=== PATIENT | female | born 1955 | race Caucasian/White ===

== ENCOUNTER → 2016-12-13 | Outpatient (CLI) | payer BC ==
[~2016-12-13] MED LIST: APIX1TAB3 PO; ASPI81TA28 PO; METH10TA6 PO; METO1TAB31 PO; MULT-506 PO; TRAM-10 PO
[2016-12-13 17:05] LABS: ALT/SGPT 28 U/L (12-78); BLOOD UREA NITROGEN 12 mg/dl (7-18); BUN/CREATININE RATIO 16.2 (10-20); CALCIUM 9.1 mg/dl (8.5-10.1); CARBON DIOXIDE 26 mmol/L (21-32); CHLORIDE 104 mmol/L (98-107); CREATININE 0.71 mg/dl (0.60-1.20); GLUCOSE 215 mg/dl (70-99); POTASSIUM 4.2 mmol/L (3.5-5.1); SODIUM 138 mmol/L (136-145)
[2016-12-13 17:12] LABS: BASO % 0.3 %; BASO ABS # 0.03 K/uL (0-0.2); COMPLETE YES; EOS % 0.8 %; HEMATOCRIT 45.9 % (37-47); IG% 0.3 %; LYMPH ABS # 1.98 K/uL (1.2-3.4); MEAN CELL VOLUME 90.2 fL (80-100); MEAN CORPUSCULAR HEMOGLOBIN 30.3 pg (25-34); MEAN CORPUSCULAR HGB CONC 33.6 g/dl (32-36); MEAN PLATELET VOLUME 11.8 fL (7.4-10.4); MONO % 4.1 %; NEUT % 74.5 %; PLATELET COUNT 239 K/uL (130-400); RED BLOOD COUNT 5.09 M/uL (4.2-5.4); WHITE BLOOD COUNT 9.88 K/uL (4.8-10.8)
[2016-12-13 17:16] LABS: ALKALINE PHOSPHATASE 98 U/L (45-117); AST/SGOT 20 U/L (15-37)
[2016-12-14 06:25] LABS: ESTIMATED AVERAGE GLUCOSE 203 mg/dl; HA1C FLAG Normal (Normal)
== END | disposition home or self-care (01) ==
LOC: C.LABBFT 12:17
PROVIDERS: ATTEND Internal Medicine
DX: I48.0 Paroxysmal atrial fibrillation (principal); E05.90 Thyrotoxicosis, unspecified without thyrotoxic crisis or storm; I10 Essential (primary) hypertension; E11.9 Type 2 diabetes mellitus without complications; K62.5 Hemorrhage of anus and rectum

== ENCOUNTER → 2017-01-20 | Outpatient (CLI) | payer BC ==
[~2017-01-20] MED LIST changes: +METO-478 PO; -METO1TAB31 PO
[2017-01-20 16:46] LABS: BASO % 0.3 %; BASO ABS # 0.03 K/uL (0-0.2); COMPLETE YES; EOS % 1.3 %; HEMATOCRIT 47.1 % (37-47); IG% 0.1 %; LYMPH % 19.4 %; LYMPH ABS # 2.05 K/uL (1.2-3.4); MEAN CELL VOLUME 91.6 fL (80-100); MEAN CORPUSCULAR HEMOGLOBIN 30.4 pg (25-34); MEAN CORPUSCULAR HGB CONC 33.1 g/dl (32-36); MEAN PLATELET VOLUME 11.3 fL (7.4-10.4); MONO % 6.2 %; NEUT % 72.7 %; PLATELET COUNT 258 K/uL (130-400); RED BLOOD COUNT 5.14 M/uL (4.2-5.4); WHITE BLOOD COUNT 10.59 K/uL (4.8-10.8)
[2017-01-20 17:37] LABS: ALKALINE PHOSPHATASE 89 U/L (45-117); ALT/SGPT 35 U/L (12-78); AST/SGOT 27 U/L (15-37); BLOOD UREA NITROGEN 13 mg/dl (7-18); BUN/CREATININE RATIO 19.1 (10-20); CALCIUM 8.7 mg/dl (8.5-10.1); CARBON DIOXIDE 30 mmol/L (21-32); CHLORIDE 103 mmol/L (98-107); CHOLESTEROL 181 mg/dl (0-200); CHOLESTEROL/HDL RATIO 5.5; CREATININE 0.69 mg/dl (0.60-1.20); GLUCOSE 155 mg/dl (70-99); HDL CHOLESTEROL 33 mg/dl; LDL CHOLESTEROL CALCULATED 114 mg/dl; POTASSIUM 4.1 mmol/L (3.5-5.1); SODIUM 140 mmol/L (136-145); TRIGLYCERIDES 172 mg/dl (0-150); VERY LOW DENSITY LIPOPROT CALC 34 mg/dl
== END | disposition home or self-care (01) ==
LOC: C.LAB 14:53
PROVIDERS: ATTEND Family Medicine
DX: Z12.11 Encounter for screening for malignant neoplasm of colon (principal); Z13.6 Encounter for screening for cardiovascular disorders; E05.90 Thyrotoxicosis, unspecified without thyrotoxic crisis or storm; I10 Essential (primary) hypertension

== ENCOUNTER → 2017-02-12 | Outpatient (CLI) | payer BC | END | disposition home or self-care (01) | LOC: C.LAB 10:52 | PROVIDERS: ATTEND Family Medicine | DX: Z12.11 Encounter for screening for malignant neoplasm of colon (principal); E05.90 Thyrotoxicosis, unspecified without thyrotoxic crisis or storm; I10 Essential (primary) hypertension; Z13.6 Encounter for screening for cardiovascular disorders ==

== ENCOUNTER → 2017-09-26 | Outpatient (CLI) | payer BC ==
--- NOTE | 2017-09-26 13:34 | DIAGNOSTIC IMAGING REPORT ---
C-SPINE ROUTINE 4 OR 5 VIEWS HISTORY: Pain NECK PAIN COMPARISON: None. FINDINGS: The cervical spine is visualized from C1 through the superior endplate of T1. There is no fracture. No subluxation. Moderate degenerative disc change from C5 through C7. Prevertebral soft tissues and the atlantodens interval are intact. IMPRESSION: Moderate degenerative changes low cervical spine. No acute process. The above report was generated using voice recognition software. It may contain grammatical, syntax or spelling errors. Electronically signed by: Addy Aldridge M.D. 09/26/2017 1:32 PM Dictated Date/Time: 09/26/2017 1:31 PM
[2017-09-26 14:32] LABS: BASO % 0.2 %; BASO ABS # 0.02 K/uL (0-0.2); COMPLETE YES; EOS % 1.2 %; HEMATOCRIT 46.9 % (37-47); IG% 0.2 %; LYMPH % 27.2 %; LYMPH ABS # 2.24 K/uL (1.2-3.4); MEAN CELL VOLUME 93.2 fL (80-100); MEAN CORPUSCULAR HGB CONC 32.2 g/dl (32-36); MONO % 6.6 %; NEUT % 64.6 %; PLATELET COUNT 238 K/uL (130-400); RED BLOOD COUNT 5.03 M/uL (4.2-5.4); WHITE BLOOD COUNT 8.24 K/uL (4.8-10.8)
[2017-09-26 14:44] LABS: ALT/SGPT 30 U/L (12-78); AST/SGOT 20 U/L (15-37); BLOOD UREA NITROGEN 17 mg/dl (7-18); CARBON DIOXIDE 28 mmol/L (21-32); CHLORIDE 102 mmol/L (98-107); CREATININE 0.72 mg/dl (0.60-1.20); GLUCOSE 292 mg/dl (70-99); SODIUM 135 mmol/L (136-145)
[2017-09-26 14:46] LABS: ALB/GLOB RATIO 0.9 (0.9-2); ALKALINE PHOSPHATASE 128 U/L (45-117)
[2017-09-26 14:47] LABS: URINE APPEARANCE CLEAR (CLEAR); URINE BILIRUBIN NEG (NEG); URINE COLOR YELLOW; URINE EPITHELIAL CELL AUTO >30 /lpf (0-5); URINE NITRITE NEG (NEG); URINE PH 5.5 (4.5-7.5); URINE SPECIFIC GRAVITY 1.042 (1.000-1.030); UROBILINOGEN NEG (NEG)
[2017-09-26 14:50] LABS: MANUAL MICROSCOPIC REQUIRED? NO; REVIEW REQ? NO; THYROID STIMULATING HORMONE 2.64 uIu/ml (0.300-4.500)
[2017-09-26 15:38] LABS: RATIO 692.6 mcg/mg (0-30.0)
== END | disposition home or self-care (01) ==
LOC: C.LAB 12:33
PROVIDERS: ATTEND Family Medicine
DX: M54.2 Cervicalgia (principal); E05.90 Thyrotoxicosis, unspecified without thyrotoxic crisis or storm; I10 Essential (primary) hypertension; M50.322 Other cervical disc degeneration at C5-C6 level; M50.323 Other cervical disc degeneration at C6-C7 level; M50.33 Other cervical disc degeneration, cervicothoracic region

== ENCOUNTER 2022-07-19 16:14 | Inpatient (IN) ==
--- NOTE | 2022-07-19 18:23 | Emergency Department Note ---
History of Present Illness General Chief complaint: Neck Injury/Pain Stated complaint: NECK PAIN, Time Seen by Provider: 07/19/22 17:38 History of Present Illness Maximum Pain Intensity: 10 This 67 yo female presents to the emergency department complaining of "neck pain" x 2-3 days. She denies any known injury or trauma. She says the pain is mostly on the front or sides of her neck, is intermittent, and rates it as a throbbing 5/10. She has been taking meloxicam 15mg daily, which alleviates the pain for 2 hrs at a time. Pain is better at night, worse in the morning, but pt denies morning stiffness. Pain is worse with movement or activity. She says she has no prior history of neck injury. She was prescribed the meloxicam for "degenerative arthritis" of the cervical spine. However, the patient is also on Eliquis for Afib. She is also taking tramadol for the pain. Patient denies alcohol or drug use. She also c/o SOB on exertion (not at rest), but denies any chest pain. Also has mild intermittent nausea and dizziness since the neck pain started. Feels like she has a mild sore throat as well. Denies any cough or other URI symptoms. She denies any recent fever, falls, or physical trauma. The patient is a poor historian about her health history and her medication use. Home Medications Medication Instructions Recorded Confirmed Type ASPIRIN (ASPIRIN EC) 81 mg PO DAILY ##0 06/30/16 History Methimazole 10 mg PO DAILY ##0 06/30/16 History Multivitamin 1 tab PO DAILY #0 tabs 06/30/16 History Tramadol (Ultram) 100 mg PO Q4H PRN Pain #0 tabs 06/30/16 History APIXABAN (ELIQUIS) 5 mg PO BID 30 days #60 tabs 07/01/16 Rx METOPROLOL SUCCINATE (TOPROL XL) 1 tab PO DAILY 30 days #30 tabs 07/01/16 Rx Allergies Allergy/AdvReac Type Severity Reaction Status Date / Time Cipro Allergy Mild SHORTNESS Verified 06/30/16 21:23 OF BREATH ciprofloxacin [Cipro] Allergy Mild SHORTNESS Verified 11/10/21 14:55 OF BREATH miconazole Allergy Mild Rash Verified 06/30/16 21:23 empagliflozin Allergy Unknown Unknown Verified 11/10/21 14:55 [From Jardiance] metformin Allergy Unknown Unknown Verified 11/10/21 14:56 Past Med/Surg History Medical History (Updated 07/19/22 @ 22:20 by Ty Oseguera MD) Atrial fibrillation Degenerative arthritis of cervical spine Hypertension Surgical History (Updated 07/19/22 @ 21:30 by Tracy Vides PA-C) No pertinent past surgical history Social History (Updated 07/19/22 @ 21:31 by Tracy Vides PA-C) Smoking Status: Former smoker Hx Alcohol Use: No Hx Substance Use: No Preferred Language: [place] Communication Ability: Effective Associate Teacher Required: No Beliefs That Will Affect Care: None Current Living Situation: Significant Other Feels Safe at Home: Yes Assistive Devices: Glasses Review of Systems See HPI for pertinent positives & negatives. and A total of 10 systems reviewed and were otherwise negative Physical Exam Vital Signs Vital Signs - 24 hr 07/19/22 17:13 07/19/22 18:37 07/19/22 18:40 Temperature 36.6 C Temperature Source Oral Pulse Rate 70 182 H 170 H Pulse Rate from SpO2 Sensor Respiratory Rate 18 23 26 H Respiratory Effort / Characteristics Blood Pressure 176/123 H Blood Pressure Mean 140 Pulse Oximetry 96 Oxygen Delivery Method Room Air Oxygen Flow Rate Sepsis Recent Fever Within 48 Hours No Sepsis New/Unexplained Change in Mental Status No Sepsis Action Taken by Nursing No Action Required 07/19/22 18:48 07/19/22 18:48 07/19/22 18:58 Temperature Temperature Source Pulse Rate 193 H 187 H Pulse Rate from SpO2 Sensor 150 H Respiratory Rate 29 H Respiratory Effort / Characteristics Blood Pressure Blood Pressure Mean 121 Pulse Oximetry 90 Oxygen Delivery Method Oxygen Flow Rate Sepsis Recent Fever Within 48 Hours Sepsis New/Unexplained Change in Mental Status Sepsis Action Taken by Nursing 07/19/22 18:50 07/19/22 18:58 07/19/22 18:58 Temperature Temperature Source Pulse Rate 169 H 172 H Pulse Rate from SpO2 Sensor 130 H 162 H Respiratory Rate 17 18 Respiratory Effort / Characteristics Blood Pressure 155/92 H Blood Pressure Mean 113 Pulse Oximetry 90 92 Oxygen Delivery Method Oxygen Flow Rate Sepsis Recent Fever Within 48 Hours Sepsis New/Unexplained Change in Mental Status Sepsis Action Taken by Nursing 07/19/22 19:00 07/19/22 19:00 07/19/22 19:00 Temperature Temperature Source Pulse Rate 165 H Pulse Rate from SpO2 Sensor 161 H Respiratory Rate 19 24 Respiratory Effort / Characteristics Short of Breath Blood Pressure 143/107 H Blood Pressure Mean 119 Pulse Oximetry 93 94 Oxygen Delivery Method Nasal Cannula Oxygen Flow Rate 2 Sepsis Recent Fever Within 48 Hours Sepsis New/Unexplained Change in Mental Status Sepsis Action Taken by Nursing 07/19/22 19:10 07/19/22 19:20 07/19/22 19:30 Temperature Temperature Source Pulse Rate 172 H 173 H 175 H Pulse Rate from SpO2 Sensor 132 H Respiratory Rate 18 22 22 Respiratory Effort / Characteristics Blood Pressure Blood Pressure Mean Pulse Oximetry 90 Oxygen Delivery Method Oxygen Flow Rate Sepsis Recent Fever Within 48 Hours Sepsis New/Unexplained Change in Mental Status Sepsis Action Taken by Nursing 07/19/22 19:40 07/19/22 19:54 07/19/22 20:00 Temperature Temperature Source Pulse Rate 180 H 150 H 155 H Pulse Rate from SpO2 Sensor 95 H 139 H Respiratory Rate 19 16 Respiratory Effort / Characteristics Blood Pressure Blood Pressure Mean Pulse Oximetry 98 97 Oxygen Delivery Method Oxygen Flow Rate Sepsis Recent Fever Within 48 Hours Sepsis New/Unexplained Change in Mental Status Sepsis Action Taken by Nursing 07/19/22 20:10 07/19/22 20:20 07/19/22 20:29 Temperature Temperature Source Pulse Rate 155 H 165 H 107 H Pulse Rate from SpO2 Sensor 146 H 177 H 113 H Respiratory Rate 27 H 27 H 21 Respiratory Effort / Characteristics Blood Pressure Blood Pressure Mean Pulse Oximetry 99 88 L 98 Oxygen Delivery Method Oxygen Flow Rate Sepsis Recent Fever Within 48 Hours Sepsis New/Unexplained Change in Mental Status Sepsis Action Taken by Nursing 07/19/22 20:29 07/19/22 20:30 07/19/22 21:00 Temperature Temperature Source Pulse Rate 102 H 143 H Pulse Rate from SpO2 Sensor 116 H Respiratory Rate 20 24 Respiratory Effort / Characteristics Blood Pressure 124/87 Blood Pressure Mean 99 Pulse Oximetry 98 Oxygen Delivery Method Oxygen Flow Rate Sepsis Recent Fever Within 48 Hours Sepsis New/Unexplained Change in Mental Status Sepsis Action Taken by Nursing 07/19/22 21:10 Temperature Temperature Source Pulse Rate 130 H Pulse Rate from SpO2 Sensor 135 H Respiratory Rate 23 Respiratory Effort / Characteristics Blood Pressure Blood Pressure Mean Pulse Oximetry 98 Oxygen Delivery Method Oxygen Flow Rate Sepsis Recent Fever Within 48 Hours Sepsis New/Unexplained Change in Mental Status Sepsis Action Taken by Nursing VITALS: Vitals are noted on the nurse's note and reviewed by myself. Triage vitals showed a heart rate of 70, but on my exam her heart rate was 188 by pulse ox and her heart rate continue to remain between 170 and 190 until the Cardizem drip. The patient's pulse ox decreased during her stay and she was placed on 2 L O2 by nasal cannula. GENERAL: 67-year-old female, in no acute distress, non-diaphoretic, well- developed well-nourished. SKIN: Capillary refill <2 sec. No tenting of the skin. HEAD: Normocephalic, atraumatic. EARS: External auditory canals clear, tympanic membranes pearly caceres without erythema or effusion bilaterally. EYES: PERRLA. EOMI. Conjunctivae without injection, sclerae without icterus. NOSE: Patent without discharge. MOUTH: Mucous membranes moist. Uvula midline. Airway patent. NECK: Supple without nuchal rigidity. No tenderness to palpation over the cervical spine or paraspinal muscles. The patient points to pain along the carotid region as well as the anterior aspect of the neck. HEART: Tachycardic with irregularly irregular rhythm. LUNGS: Clear to auscultation bilaterally without wheezes, rales or rhonchi. No retractions or accessory muscle use. ABDOMEN: Positive bowel sounds x 4. Normal tympanic percussion. Soft, nontender, without masses or organomegaly. Ryan sign negative. No guarding or rebound tenderness. No focal RLQ or LLQ tenderness. MUSCULOSKELETAL: The patient's left calf is edematous compared to the right and mildly tender to palpation with the left calf measuring 37 cm and the right calf measuring 32 cm. NEURO: Patient was alert and oriented to person place and time. No focal neurological deficits. Course Administered Medications Diltiazem HCl 125 mg/ Dextrose 125 mls @ 5 mls/hr IV .Q24H ELIAN; Protocol Stop: 08/18/22 19:44 Last Titration: 07/19/22 22:33 Dose: 10 mg/hr, 10 mls/hr Documented By: KANE Co-signed By: JOHN Admin: 07/19/22 20:21 Dose: 5 mg/hr, 5 mls/hr Documented By: KANE Co-signed By: OAM Doxycycline Hyclate 100 mg/ (Dextrose) 110 mls @ 50 mls/hr IV Q12H ELIAN Stop: 10/14/22 22:14 Last Admin: 07/19/22 23:01 Dose: 50 mls/hr Documented By: KANE Sodium Chloride (Nss 1000ml) 1,000 mls @ 80 mls/hr IV .[id number] ELIAN Stop: 08/18/22 22:14 Last Admin: 07/19/22 23:35 Dose: 80 mls/hr Documented By: JACOBY Tramadol HCl (Tramadol Hcl 50 Mg Tablet) 100 mg PO Q4H PRN PRN Reason: Pain Last Admin: 07/20/22 00:08 Dose: 100 mg Documented By: JACOBY Discontinued Medications Diltiazem HCl (Diltiazem Hcl 5 Mg/Ml 5 Ml Vial) 20 mg IV NOW STA Stop: 07/19/22 19:33 Last Admin: 07/19/22 20:22 Dose: 20 mg Documented By: KANE Co-signed By: MILA Sodium Chloride (Nss) 500 mls @ 999 mls/hr IV .Q31M STA Stop: 07/19/22 18:54 Last Infusion: 07/19/22 19:53 Dose: 0 mls/hr Documented By: Admin: 07/19/22 18:58 Dose: 999 mls/hr Documented By: KHALIDA Ioversol (Optiray 300 500ml) 107 ml IV ONCE ONE Stop: 07/19/22 20:53 Last Admin: 07/19/22 20:52 Dose: 107 ml Documented By: ELIA Metoprolol Tartrate (Metoprolol Tartrate 1 Mg/Ml Vial) 5 mg IV NOW STA Stop: 07/19/22 18:46 Last Admin: 07/19/22 18:58 Dose: 5 mg Documented By: KHALIDA Miscellaneous (Stat Iv Infusion Titration Per Protocol) 1 each N/A NOW STA Stop: 07/19/22 19:33 Last Admin: 07/19/22 20:22 Dose: 1 each Documented By: KANE Medical Decision Making Differential Diagnosis Differential diagnosis includes fracture, subluxation, cervical strain, lymphadenopathy, meningitis, pharyngitis, thyromegaly, thyroid nodules, HI, A. fib, other cardiac etiology, PE, DVT, pneumonia, or others. Laboratory Data Attestation: I reviewed the patient's lab results. Result diagrams: 07/19/22 18:40 07/19/22 18:40 Lab Results 1007/19/22 07/19/22 Range/Units 18:40 18:40 18:40 WBC 15.95 H (4.8-10.8) K/ul RBC 5.35 H (3.93-5.22) M/uL Hgb 16.4 H (12.0-16.0) g/dl Hct 50.3 H (34.1-44.9) % MCV 94.0 (80.0-100.0) fL MCH 30.7 (25.0-34.0) pg MCHC 32.6 (32.0-36.0) g/dL RDW Std Deviation 46.9 H (36.4-46.3) fL RDW Coeff of Rasheed 13.7 (11.5-14.5) % Plt Count 267 (130-400) K/uL MPV 10.8 (9.4-12.3) fL Immature Gran % (Auto) 0.4 % Neut % (Auto) 84.6 % Lymph % (Auto) 9.3 % [place] % (Auto) 5.1 % Eos % (Auto) 0.2 % Baso % (Auto) 0.4 % Neut # (Auto) 13.48 H (1.4-6.5) K/uL Lymph # (Auto) 1.49 (1.2-3.4) K/uL [place] # (Auto) 0.82 (0.24-0.82) K/uL Eos # (Auto) 0.03 (0-0.50) K/uL Baso # (Auto) 0.06 (0-0.2) K/uL Immature Gran # (Auto) 0.07 H (0.00-0.02) K/uL PT 11.4 (9.0-12.0) Seconds INR 1.1 (0.9-1.1) APTT 31.1 H (21.0-31.0) Seconds PTT Ratio 1.1 Sodium 138 (136-145) mmol/L Potassium 4.8 (3.5-5.1) mmol/L Chloride 102 (98-107) mmol/L Carbon Dioxide 29 (21-32) mmol/L Anion Gap 7 (3-11) BUN 17 (6-23) mg/dl Creatinine 0.78 (0.6-1.2) mg/dl Est Cr Clr Drug Dosing 73.4 ml/min Est GFR ( Amer) 92.5 ml/min Est GFR (Non-Af Amer) 79.8 ml/min BUN/Creatinine Ratio 21.8 H (10-20) Glucose 246 H (70-99(Fasting)) mg/dl Calcium 9.6 (8.5-10.1) mg/dl Total Bilirubin 0.3 (0.2-1.0) mg/dl AST 23 (13-39) U/L ALT 17 (7-52) U/L Alkaline Phosphatase 89 (34-104) U/L Troponin I High Sens 744.6 H* (0-14) pg/ml Total Protein 7.2 (6.0-8.3) gm/dl Albumin 4.5 (3.4-5.0) gm/dl Globulin 2.7 (2.5-4.0) gm/dl Albumin/Globulin Ratio 1.7 (0.9-2) Lipase 16 (11-82) U/L TSH (0.300-4.500) uIu/ml SARS-CoV-2, RNA, NAAT (NEGATIVE) 07/19/22 07/19/22 Range/Units 18:40 18:45 WBC (4.8-10.8) K/ul RBC (3.93-5.22) M/uL Hgb (12.0-16.0) g/dl Hct (34.1-44.9) % MCV (80.0-100.0) fL MCH (25.0-34.0) pg MCHC (32.0-36.0) g/dL RDW Std Deviation (36.4-46.3) fL RDW Coeff of Rasheed (11.5-14.5) % Plt Count (130-400) K/uL MPV (9.4-12.3) fL Immature Gran % (Auto) % Neut % (Auto) % Lymph % (Auto) % [place] % (Auto) % Eos % (Auto) % Baso % (Auto) % Neut # (Auto) (1.4-6.5) K/uL Lymph # (Auto) (1.2-3.4) K/uL [place] # (Auto) (0.24-0.82) K/uL Eos # (Auto) (0-0.50) K/uL Baso # (Auto) (0-0.2) K/uL Immature Gran # (Auto) (0.00-0.02) K/uL PT (9.0-12.0) Seconds INR (0.9-1.1) APTT (21.0-31.0) Seconds PTT Ratio Sodium (136-145) mmol/L Potassium (3.5-5.1) mmol/L Chloride (98-107) mmol/L Carbon Dioxide (21-32) mmol/L Anion Gap (3-11) BUN (6-23) mg/dl Creatinine (0.6-1.2) mg/dl Est Cr Clr Drug Dosing ml/min Est GFR ( Amer) ml/min Est GFR (Non-Af Amer) ml/min BUN/Creatinine Ratio (10-20) Glucose (70-99(Fasting)) mg/dl Calcium (8.5-10.1) mg/dl Total Bilirubin (0.2-1.0) mg/dl AST (13-39) U/L ALT (7-52) U/L Alkaline Phosphatase (34-104) U/L Troponin I High Sens (0-14) pg/ml Total Protein (6.0-8.3) gm/dl Albumin (3.4-5.0) gm/dl Globulin (2.5-4.0) gm/dl Albumin/Globulin Ratio (0.9-2) Lipase (11-82) U/L TSH 3.154 (0.300-4.500) uIu/ml SARS-CoV-2, RNA, NAAT NEGATIVE (NEGATIVE) Imaging Data Radiologist's Impression: Chest X-Ray 07/19/22 18:25 XR chest 1V portable HISTORY: 67 years-old Female Chest Pain . Chest pain COMPARISON: Chest radiograph 06/30/2016 TECHNIQUE: Portable AP view of the chest FINDINGS: Cardiac silhouette is enlarged. Apparent coarsening of the interstitium, likely secondary to patient body habitus. No pneumothorax, pleural effusion or lobar airspace consolidation. Mild subsegmental bibasilar atelectasis. The bones appear grossly intact. IMPRESSION: Cardiomegaly without acute process. ACT 112: Negative or not required by law. The above report was generated using voice recognition software. It may contain grammatical, syntax or spelling errors. Electronically signed by: Macario Colindres M.D. 07/19/2022 7:05 PM Chest CTA 07/19/22 20:13 CT angio chest PE protocol CT DOSE: 585.48 mGy.cm HISTORY: 67 years-old Female with eval for PE. Acute shortness of breath TECHNIQUE: Multiple CTA images of the chest were obtained after the intravenous administration of 107 ml Optiray. Coronal and sagittal MIPS were obtained from the axial data set and were submitted for review. All measurements were obtained according to NASCET criteria. A dose lowering technique was utilized adhering to the principles of ALARA. COMPARISON: Chest radiograph of same day FINDINGS: CTA: The heart is upper limits of normal in size. There is no pericardial effusion. Moderate coronary artery calcifications. Mild mural fatty changes of the left ventricular apex. Atherosclerosis of the thoracic aorta with patency of the imaged great vessels. Unremarkable pulmonary artery. The segmental and subsegmental branches however within the lung bases are suboptimally evaluated secondary to respiratory motion artifact. CT CHEST: Heterogeneity of the thyroid. 2.0 x 1.4 cm right hilar lymph node. Lipoma of the right diaphragmatic mackenzie, 5.4 x 3.6 cm. Indeterminate hypodense 2.9 x 2.6 x 5.0 cm circumscribed structure is noted with within the posterior mediastinum adjacent to the descending thoracic aorta the level of the midthoracic spine. Trace right pleural effusion. Intralobular and bronchial wall thickening. Emphysema. Minimal subpleural patchy consolidative opacities within the right upper lobe. No acute process of the imaged upper abdomen. Unremarkable soft tissues. No acute fracture. Degenerative changes of the shoulders and spine. IMPRESSION: 1. No pulmonary emboli. 2. Cardiomegaly with mild pulmonary edema and trace right pleural effusion. 3. Emphysema with bronchial wall thickening suggestive of bronchitis. Mild subsegmental subpleural opacities of the right upper lobe may represent a subtle infectious or inflammatory pneumonitis. 4. Likely reactive right hilar lymphadenopathy. 5. 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 ACT 112: Negative or not required by law. The above report was generated using voice recognition software. It may contain grammatical, syntax or spelling errors. Electronically signed by: Macario Colindres M.D. 07/19/2022 9:48 PM MDM Narrative I examined the patient. She is a somewhat poor historian about her past medical history as well as her current medication use and history. She initially was complaining of neck pain, but on physical exam she was tachycardiac with an irregularly irregular rhythm. When I placed the pulse ox on the patient, her heart rate was 188. Continuous bonding supervisor: Order was placed for continuous bonding supervisor and continuous pulse ox. Patient was placed on the bonding supervisor. Patient was noted to be in rapid Afib at an initial rate of 177 bpm. EKG was interpreted by myself and Dr. Donahue and shows atrial fibrillation with rapid ventricular response at 179 bpm with no obvious acute ST or T wave changes. An IV lock was placed and labs were drawn. I had a meaningful discussion about this patient with Dr. Donahue. They agree with my assessment and the treatment plan. She was initially given metoprolol 5 mg IV with no improvement of her heart rate. She was then given Cardizem 20 mg IV bolus followed by Cardizem drip with improvement of her heart rate ranging between 100 and 130. The patient's pulse ox did decrease while she is in the emergency department and she was put on 2 L of oxygen by nasal cannula with improvement of her pulse ox to 98%. She states that she has not seen cardiology in a number of years. White blood cell count was elevated at 15.95, hemoglobin elevated at 16.4, INR 1.1, APTT 31.1. Glucose elevated at 246, but CMP otherwise normal. Lipase normal. TSH normal at 3.154. COVID-negative. Troponin was significantly elevated at 744.6, which may be due to her being in rapid A. fib for so long. Chest x-ray was reviewed and interpreted by myself with cardiomegaly, but no evidence for pneumonia or other acute changes. I agree with the radiology interpretation as above. Since the patient is a poor historian and unable to tell me if she has been fully compliant with taking her Eliquis for her A. fib and since she has swelling of the LLE, a CT scan of the chest with contrast and ultrasound of the left lower extremity was obtained to evaluate for PE or DVT. CT scan of the chest was reviewed by myself and read by radiology as above and shows no evidence for PE, but does show cardiomegaly with mild pulmonary edema, emphysema with bronchial wall thickening suggestive of bronchitis, and likely reactive right hilar lymphadenopathy. There was also a 5 cm hypodense lesion within the posterior mediastinum which may represent a duplication cyst. Ultrasound of the left lower extremity was still pending at the time of this dictation. I spoke with the hospitalist Dr. Oseguera about the patient and he was in agreement with admission for further evaluation and treatment. The patient was in stable condition at the time of transfer of care. Impression & Plan Rapid atrial fibrillation, Elevated troponin, SOB (shortness of breath) Discharge Plan Visit Data Chief Complaint: Neck Injury/Pain Stated Complaint: NECK PAIN, ED Provider: Jackelyn Donahue ED Midlevel Provider: Tracy Vides Discharge Problem: Rapid atrial fibrillation, Elevated troponin, SOB (shortness of breath) Patient Disposition: Admitted As Inpatient Condition: Good Discharge Instructions Interventions: ED Discharge Assessment Last Done: 07/20/22 00:12
[2022-07-19] MEDS ORDERED: SODIUM CHLORIDE 0.9% 500 ML IV STA (18:24)
[2022-07-19] MEDS ORDERED: METOPROLOL TARTRATE 1 MG/ML VIAL IV STA (18:45)
[2022-07-19 18:52] LABS: Basophils # (auto) 0.06 K/uL (0-0.2); Basophils % (auto) 0.4 %; Eosinophils # (auto) 0.03 K/uL (0-0.50); Eosinophils % (auto) 0.2 %; Hematocrit (blood only) 50.3 % (34.1-44.9); Hemoglobin 16.4 g/dl (12.0-16.0); Immature Granulocytes # (auto) 0.07 K/uL (0.00-0.02); Immature Granulocytes % (auto) 0.4 %; Lymphocytes # (auto) 1.49 K/uL (1.2-3.4); Lymphocytes % (auto) 9.3 %; Mean Corpuscular Hemoglobin 30.7 pg (25.0-34.0); Mean Corpuscular Hgb Conc 32.6 g/dL (32.0-36.0); Mean Platelet Volume 10.8 fL (9.4-12.3); Monocytes # (auto) 0.82 K/uL (0.24-0.82); Monocytes % (auto) 5.1 %; Neutrophils # (auto) 13.48 K/uL (1.4-6.5); Neutrophils % (auto) 84.6 %; Platelet Count 267 K/uL (130-400); RDW Coefficient of Variation 13.7 % (11.5-14.5); RDW Standard Deviation 46.9 fL (36.4-46.3); Red Blood Count 5.35 M/uL (3.93-5.22); White Blood Count 15.95 K/ul (4.8-10.8)
[2022-07-19 19:07] LABS: INR 1.1 (0.9-1.1); Partial Thromboplastin Ratio 1.1; Partial Thromboplastin Time 31.1 Seconds (21.0-31.0); Prothrombin Time 11.4 Seconds (9.0-12.0)
--- NOTE | 2022-07-19 19:07 | XRay Report ---
XR chest 1V portable HISTORY: 67 years-old Female Chest Pain . Chest pain COMPARISON: Chest radiograph 06/30/2016 TECHNIQUE: Portable AP view of the chest FINDINGS: Cardiac silhouette is enlarged. Apparent coarsening of the interstitium, likely secondary to patient body habitus. No pneumothorax, pleural effusion or lobar airspace consolidation. Mild subsegmental bi basilar atelectasis. The bones appear grossly intact. IMPRESSION: Cardiomegaly without acute process. ACT 112: Negative or not required by law. The above report was generated using voice recognition software. It may contain grammatical, syntax o r spelling errors. Electronically signed by: Macario Colindres M.D. 07/19/2022 7:05 PM
[2022-07-19 19:12] LABS: Albumin Globulin Ratio 1.7 (0.9-2); Albumin Level 4.5 gm/dl (3.4-5.0); BUN Creatinine Ratio 21.8 (10-20); Bilirubin,Total 0.3 mg/dl (0.2-1.0); Calcium 9.6 mg/dl (8.5-10.1); Creatinine Clr Calc Pharmacy 73.4 ml/min; Est GFR (African American) 92.5 ml/min; Est GFR (Non-African American) 79.8 ml/min; Globulin 2.7 gm/dl (2.5-4.0); Potassium 4.8 mmol/L (3.5-5.1); Total Protein 7.2 gm/dl (6.0-8.3)
[2022-07-19 19:20] LABS: Troponin I High Sensitivity 744.6 pg/ml (0-14)
[2022-07-19] MEDS ORDERED: STAT IV Infusion **Titration per Protocol STA (19:32)
[2022-07-19] MEDS ORDERED: dilTIAZem HCl 5 MG/ML 5 ML VIAL IV STA (19:32)
[2022-07-19] MEDS: dilTIAZem HCL 125 MG in DEXTROSE 5% 100 ML IV SCH (20:21)
[2022-07-19] MEDS ORDERED: OPTIRAY 300 500mL IV ONE (20:52)
--- NOTE | 2022-07-19 21:51 | CT Scan Report ---
CT angio chest PE protocol CT DOSE: 585.48 mGy.cm HISTORY: 67 years-old Female with eval for PE. Acute shortness of breath TECHNIQUE: Multiple CTA images of the chest were obtained after the intravenous administration of 107 ml Optiray. Coronal and sagittal MIPS were obtained from the axial data set and were submitted for review. All measurements were obtained according to NASCET criteria. A dose lowering technique was u tilized adhering to the principles of ALARA. COMPARISON: Chest radiograph of same day FINDINGS: CTA: The heart is upper limits of normal in size. There is no pericardial effusion. Moderate coronary feli ry calcifications. Mild mural fatty changes of the left ventricular apex. Atherosclerosis of the thor acic aorta with patency of the imaged great vessels. Unremarkable pulmonary artery. The segmental and subsegmental branches however within the lung bases are suboptimally evaluated secondary to respirat ory motion artifact. CT CHEST: Heterogeneity of the thyroid. 2.0 x 1.4 cm right hilar lymph node. Lipoma of the right diaphragmatic mackenzie, 5.4 x 3.6 cm. Indeterminate hypodense 2.9 x 2.6 x 5.0 cm circumscribed structure is noted with within the posterior mediastinum adjacent to the descending thoracic aorta the level of the midthorac ic spine. Trace right pleural effusion. Intralobular and bronchial wall thickening. Emphysema. Minimal subpleur al patchy consolidative opacities within the right upper lobe. No acute process of the imaged upper a bdomen. Unremarkable soft tissues. No acute fracture. Degenerative changes of the shoulders and spine . IMPRESSION: 1. No pulmonary emboli. 2. Cardiomegaly with mild pulmonary edema and trace right pleural effusion. 3. Emphysema with bronchial wall thickening suggestive of bronchitis. Mild subsegmental subpleural op acities of the right upper lobe may represent a subtle infectious or inflammatory pneumonitis. 4. Likely reactive right hilar lymphadenopathy. 5. 5 cm hypodense lesion within the posterior mediastinum is indeterminate and may represent a duplic ation cyst. ACT 112: Negative or not required by law. The above report was generated using voice recognition software. It may contain grammatical, syntax o r spelling errors. Electronically signed by: Macario Colindres M.D. 07/19/2022 9:48 PM
--- NOTE | 2022-07-19 22:11 | History & Physical Report ---
Date of Service July 19, 2022 Assessment & Plan (1) Elevated troponin: Plan: 67 y/o F Hx chronic back pain, HTN, HLD, DM II, hyperthyroid, chronic AF. presents with BL frontal neck pain. Upon auscultation in the ER, a rapid HR was noted. The pt was placed on a monitor which confirmed rapid AF with a rate of 180. She has not c/o CP, SOB, lightheadedness. Initial labs were notable for a trop of 745. TSH was WNL. Rapid AF is confirmed on EKG. It is also noted that she has some erythema and multiple small blisters on her distal lower extrems (L > R). She was apparently placed on antibiotics for this earlier in the week. 1) Rapid AF - Admit to PCU, placed on a Diltiazem drip, cont daily metoprolol, Eliquis. Echo requested, cardiology consult requested. 2) Neck pain and an elevated trop - high risk - ASA, statin added - fasting lipid AM, trend trop, echo pending. She is anticoagulated. 3) Hyperthyroidism - TSH WNL - cont methimazole, metoprolol. 4) Hyperglycemia - does not take DM meds but allergies are reported to Metformin and Jardiance. Placed on a sliding scale - A1C AM. 5) Mild cellulitis is possible. cause of small blisters is not clear as they are concentrated on her LEs. Placed on Doxy. 6) Low back pain - cont Tramadol PRN 7) It is noted that her mother is due to colon CA and she has not had a colonoscopy - advised on such. Full code - Eliquis prophylaxis Total time for this admit including review of labs, meds, imaging, records - discussion with pt and ER attending - 45 min (2) Rapid atrial fibrillation: History of Present Illness Chief Complaint: Neck pain Primary Care Provider: Zach Castelan 67 y/o F Hx chronic back pain, HTN, HLD, DM II, hyperthyroid, chronic AF. presents with BL frontal neck pain. Upon auscultation in the ER, a rapid HR was noted. The pt was placed on a monitor which confirmed rapid AF with a rate of 180. She has not c/o CP, SOB, lightheadedness. Initial labs were notable for a trop of 745. TSH was WNL. Rapid AF is confirmed on EKG. It is also noted that she has some erythema and multiple small blisters on her distal lower extrems (L > R). She was apparently placed on antibiotics for this earlier in the week. PMH: 1) HTN 2) HLD - untreated 3) DM II - untreated 4) Hyperthyroidism 5) Chronic AF - Eliquis 6) Chronic lower back pain 7) Obese Surgical: 1) C section 2) Ovarian cystectomy Social: Does not drink or smoke. Family: Father - throat CA Mother - colon CA Allergies Allergy/AdvReac Type Severity Reaction Status Date / Time Cipro Allergy Mild SHORTNESS Verified 06/30/16 21:23 OF BREATH ciprofloxacin [Cipro] Allergy Mild SHORTNESS Verified 11/10/21 14:55 OF BREATH miconazole Allergy Mild Rash Verified 06/30/16 21:23 empagliflozin Allergy Unknown Unknown Verified 11/10/21 14:55 [From Jardiance] metformin Allergy Unknown Unknown Verified 11/10/21 14:56 Home Medications Medication Instructions Recorded Confirmed Type ASPIRIN (ASPIRIN EC) 81 mg PO DAILY ##0 06/30/16 History Methimazole 10 mg PO DAILY ##0 06/30/16 History Multivitamin 1 tab PO DAILY #0 tabs 06/30/16 History Tramadol (Ultram) 100 mg PO Q4H PRN Pain #0 tabs 06/30/16 History APIXABAN (ELIQUIS) 5 mg PO BID 30 days #60 tabs 07/01/16 Rx METOPROLOL SUCCINATE (TOPROL XL) 1 tab PO DAILY 30 days #30 tabs 07/01/16 Rx Past Med/Surg History Medical History (Updated 07/19/22 @ 22:20 by Ty Oseguera MD) Atrial fibrillation Degenerative arthritis of cervical spine Hypertension Surgical History (Updated 07/19/22 @ 21:30 by Tracy Vides PA-C) No pertinent past surgical history Social History (Updated 07/19/22 @ 21:31 by Tracy Vieds PA-C) Smoking Status: Never smoker Current Living Situation: Spouse Feels Safe at Home: Yes Review of Systems Review of Systems: Gen: Denies fevers, night sweats, rigors, fatigue, malaise, weight loss/gain ENT: Denies congestion, throat pain, hearing loss Eyes: Denies acute visual changes CV: Denies CP, palpitations - necl pain as above Pulmonary: Denies SOB, cough, wheezing GI: Denies N/V, diarrhea, constipation Neuro: Denies acute or unilateral weakness, acute gait impairment, headache or acute visual changes Musculoskeletal: Denies joint pain, inflammation Endocrine: Denies polydipsia, polyuria Skin: Denies acute rashes or ulcers Physical Exam Physical Exam: General: Overweight, middle-aged F, AAO x 3, no distress ENT: No erythema or exudates, no thrush Eyes: MAURICIO, EOMI Head and neck: Normocephalic, atraumatic, No JVD, neck is supple. Chest/heart: Nontender, S1,2, tachy/irregular, no murmurs Lungs: CTAB, no wheezing or crackles Abdomen: Nontender, nondistended, BS+ Neuro: AAO x 3, speech is clear, no unilateral weakness or loss of sensation, coordination intact Musculoskeletal: No joint inflammation, muscle tenderness, FROM Skin: No acute rashes or ulcers Extremities: No clubbing, cyanosis, edema Results & Data Results & Data ([facility]) Vital Signs (Past 12 Hours) Vital Signs Temp Pulse Resp BP Pulse Ox O2 Del Method O2 Flow Rate 07/19/22 21:10 130 H 23 98 07/19/22 21:00 143 H 24 07/19/22 20:30 102 H 20 98 07/19/22 20:29 124/87 07/19/22 20:29 107 H 21 98 07/19/22 20:20 165 H 27 H 88 L 07/19/22 20:10 155 H 27 H 99 07/19/22 20:00 155 H 16 97 07/19/22 19:54 150 H 19 98 07/19/22 19:40 180 H 07/19/22 19:30 175 H 22 07/19/22 19:20 173 H 22 07/19/22 19:10 172 H 18 90 07/19/22 19:00 24 94 Nasal Cannula 2 07/19/22 19:00 165 H 19 93 07/19/22 19:00 143/107 H 07/19/22 18:58 155/92 H 07/19/22 18:58 172 H 18 92 07/19/22 18:50 169 H 17 90 07/19/22 18:58 187 H 07/19/22 18:48 193 H 29 H 90 07/19/22 18:40 170 H 26 H 07/19/22 18:37 182 H 23 07/19/22 17:13 97.9 F 70 18 176/123 H 96 Room Air Code Status & VTE Plan VTE Prophylaxis Plan VTE Prophylaxis will be ordered: Yes PG Care Time/CCT Total # of Minutes Spent Total Time Spent with Patient: Total time spent is greater than 50% in coordination of care (as documented) at patient's floor/unit and/or counseling patient: Coding Level of Care Code 62744 Initial Inpt Care Lvl 3 Diagnoses Elevated troponin R77.8 Rapid atrial fibrillation I48.91
[2022-07-19] MEDS ORDERED: SODIUM CHLORIDE 0.9% 1000ML 1,000 ML IV SCH (22:15)
[2022-07-19] MEDS: DOXYCYCLINE HYCLATE 100 MG in DEXTROSE 5% 100 ML IV SCH (23:01)
[2022-07-19] MEDS ORDERED: CARBOHYDRATES FOR HYPOGLYCEMIA PO PRN (23:30)
[2022-07-19] MEDS ORDERED: GLUCOSE 40% GEL 15 GM TUBE PO PRN (23:30)
[2022-07-19] MEDS ORDERED: GLUCOSE 10 TAB/TUBE PO PRN (23:30)
[2022-07-19] MEDS ORDERED: traMADol HCL 50 MG TABLET PO PRN (23:30)
[2022-07-19] MEDS ORDERED: GLUCAGON FOR INJ 1 MG VIAL SQ PRN (23:30)
[2022-07-20] MEDS ORDERED: INFLUENZA VACCINE HIGH DOSE PF 65+ 0.7 ML SYR IM ONE (00:28)
[2022-07-20] MEDS: ZOLPIDEM TARTRATE 5 MG TAB PO PRN ×2 (01:08→21:09)
[2022-07-20] MEDS: dilTIAZem HCL 125 MG in DEXTROSE 5% 100 ML IV SCH (06:46)
[2022-07-20 08:31] LABS: Estimated Average Glucose 186 mg/dl; Hemoglobin A1C 8.1 % (4.5-5.6)
[2022-07-20] MEDS: INSULIN ASPART PER UNIT SC SCH ×4 (08:58→20:56)
[2022-07-20] MEDS: ASPIRIN 81 MG ECTAB PO SCH (08:59)
[2022-07-20] MEDS: APIXABAN 5 MG TABLET PO SCH ×2 (08:59→20:15)
[2022-07-20] MEDS ORDERED: METOPROLOL SUCC 25MG EXT REL TAB PO SCH (09:00)
[2022-07-20] MEDS: methIMAzole 5 MG TABLET PO SCH (09:00)
[2022-07-20] MEDS: DOXYCYCLINE HYCLATE 100 MG in DEXTROSE 5% 100 ML IV SCH ×2 (09:06→21:20)
--- NOTE | 2022-07-20 10:09 | Cardiology Consultation ---
Date of Consultation July 20, 2022 Assessment & Plan (1) Rapid atrial fibrillation: (2) Anticoagulant long-term use: (3) Elevated troponin: Plan 1. Atrial fibrillation: She has history of atrial fibrillation which appears to go back at least to 2016, it was paroxysmal at that time but at this point I do not know whether it is paroxysmal or permanent. Since she is unaware of it I do not know how long she has been in her current rhythm which was very fast. I do not know if she is taking her medications, certainly she is not taking Eliquis appropriately (she tells me once a day). At this point I do not think we should try cardioversion, her rate has come under good control on diltiazem and I would therefore opt for rate control, anticoagulation with follow-up to determine whether we should consider cardioversion in the future. 2. Anticoagulation: She has been on Eliquis I believe, her dose would be 5 mg twice a day and I would continue that for the present. 3. Elevated troponin: Her troponin is quite elevated however that may be a function of her rapid heart rate, however it did rise significantly after presentation which would suggest that either she went into this arrhythmia recently or she has coronary disease as well. At this point I would get an ech ocardiogram, we will likely need some type of noninvasive study to see whether she has significant coronary artery disease which I suspect. We can decide that once we have the results of the echocardiogram. History of Present Illness Reason for Consultation: Atrial fibrillation Attending Physician: Crystal De Souza MD History of Present Illness This is a 67-year-old woman who presented to the emergency room on the evening of July 19, 2022 with symptoms of neck pain. She was noted to be in rapid atrial fibrillation although she tells me she had no symptoms of it. An electrocardiogram confirmed atrial fibrillation at a rate of [address]-T abnormalities which are likely rate related. Her troponin is very high, so far the peak is 2448 at 5:24 this AM. Her history is notable for her being seen by Dr. Farr in our office in January 2017 as a new patient, as near as I can tell she has not had another visit in our office. At that point she carried a diagnosis of paroxysmal atrial fibrillation and was either started or continued on Eliquis 5 mg twice a day as well as metoprolol 50 mg daily. She was to follow-up in 6 months by do not have any other follow-up in our records. She is a very poor historian and can provide virtually no information about her atrial arrhythmia except that she does not have much in the way of symptoms and seems unaware of when she has it. At this point I cannot tell whether it is permanent or intermittent and she tells me that she sees a doctor in [place] who prescribes her medications. She evidently is taking Eliquis but she tells me she takes it once a day and does not know the dose. She might be taking metoprolol but I am not sure. At the time of my evaluation she is on diltiazem 15 mg/h and her heart rate is well controlled. She has no cardiovascular symptoms currently. Allergies Allergy/AdvReac Type Severity Reaction Status Date / Time Cipro Allergy Mild SHORTNESS Verified 06/30/16 21:23 OF BREATH ciprofloxacin [Cipro] Allergy Mild SHORTNESS Verified 11/10/21 14:55 OF BREATH miconazole Allergy Mild Rash Verified 06/30/16 21:23 empagliflozin Allergy Unknown Unknown Verified 11/10/21 14:55 [From Jardiance] metformin Allergy Unknown Unknown Verified 11/10/21 14:56 Home Medications Medication Instructions Recorded Confirmed Type ASPIRIN (ASPIRIN EC) 81 mg PO DAILY ##0 06/30/16 History Methimazole 10 mg PO DAILY ##0 06/30/16 History Multivitamin 1 tab PO DAILY #0 tabs 06/30/16 History Tramadol (Ultram) 100 mg PO Q4H PRN Pain #0 tabs 06/30/16 History APIXABAN (ELIQUIS) 5 mg PO BID 30 days #60 tabs 07/01/16 Rx METOPROLOL SUCCINATE (TOPROL XL) 1 tab PO DAILY 30 days #30 tabs 07/01/16 Rx Patient History Medical History Atrial fibrillation Degenerative arthritis of cervical spine Hypertension Surgical History No pertinent past surgical history Social History Smoking Status: Former smoker Hx Alcohol Use: No Hx Substance Use: No Preferred Language: Yi Communication Ability: Effective Blindstitch Lapel Padder Required: No Beliefs That Will Affect Care: None Current Living Situation: Significant Other Feels Safe at Home: Yes Assistive Devices: Glasses Review of Systems Review of Systems: All systems reviewed & are unremarkable except as noted in HPI & below Physical Exam Physical Exam: Constitutional: Alert, cooperative and in no distress. She seems a little bit confused when answering questions. HEENT: Unremarkable Neck: No jugular venous distention, carotid pulses are irregular but otherwise normal and equal bilaterally without bruits. Pulmonary: Clear to auscultation bilaterally. Cardiac: Irregular rhythm with no murmur, gallop or rub. Abdomen: Soft, nontender with normal bowel sounds. Extremities: +2 bilateral pretibial edema. Distal pulses intact. Neurologic: No focal findings. Gait was not tested. Skin: No rash, ecchymoses or petechiae. Results & Data ([facility]) Vital Signs (Past 12 Hours) Vital Signs Temp Pulse Pulse Resp BP Pulse Ox O2 Del Method 07/20/22 08:00 Room Air 07/20/22 08:08 36.7 C 82 19 115/69 90 Room Air 07/20/22 05:18 97 H 112/74 07/20/22 04:20 89 120/87 07/20/22 03:45 36.9 C 85 18 115/83 97 Nasal Cannula 07/19/22 23:40 135 H 07/19/22 23:40 Nasal Cannula 07/20/22 00:10 36.8 C 120 H 18 163/85 H 99 Nasal Cannula O2 Flow Rate 07/20/22 08:00 07/20/22 08:08 07/20/22 05:18 07/20/22 04:20 07/20/22 03:45 2 07/19/22 23:40 07/19/22 23:40 2 07/20/22 00:10 2 Laboratory Results Cardiac Enzymes 07/19/22 07/19/22 07/20/22 Range/Units 18:40 23:45 05:24 AST 23 (13-39) U/L Troponin I High Sens 744.6 H* 1860.2 H* D 2448.3 H* D (0-14) pg/ml Coagulation 07/19/22 Range/Units 18:40 PT 11.4 (9.0-12.0) Seconds APTT 31.1 H (21.0-31.0) Seconds CBC 07/19/22 Range/Units 18:40 WBC 15.95 H (4.8-10.8) K/ul RBC 5.35 H (3.93-5.22) M/uL Hgb 16.4 H (12.0-16.0) g/dl Hct 50.3 H (34.1-44.9) % Plt Count 267 (130-400) K/uL Neut # (Auto) 13.48 H (1.4-6.5) K/uL Lymph # (Auto) 1.49 (1.2-3.4) K/uL [place] # (Auto) 0.82 (0.24-0.82) K/uL Eos # (Auto) 0.03 (0-0.50) K/uL Baso # (Auto) 0.06 (0-0.2) K/uL Comprehensive Metabolic Panel 07/19/22 Range/Units 18:40 Sodium 138 (136-145) mmol/L Potassium 4.8 (3.5-5.1) mmol/L Chloride 102 (98-107) mmol/L Carbon Dioxide 29 (21-32) mmol/L BUN 17 (6-23) mg/dl Creatinine 0.78 (0.6-1.2) mg/dl Glucose 246 H (70-99(Fasting)) mg/dl Calcium 9.6 (8.5-10.1) mg/dl AST 23 (13-39) U/L ALT 17 (7-52) U/L Alkaline Phosphatase 89 (34-104) U/L Total Protein 7.2 (6.0-8.3) gm/dl Albumin 4.5 (3.4-5.0) gm/dl Intake and Output 07/19/22 07/20/22 07/20/22 22:59 06:59 14:59 Intake Total 511 / 732.0 221.0 / 732.0 Balance 511 / 732.0 221.0 / 732.0 Intake: IV 511 / 732.0 221.0 / 732.0 Doxycycline Hyclate 100 mg In 110 / 110 Dextrose 5% 100 ml @ 50 mls/hr IV Q12H [facility] Rx#:[id number] Sodium Chloride 0.9% 500 ml @ 500 / 500 999 mls/hr IV .Q31M [facility] Rx#: [id number] dilTIAZem HCL 125 mg In 11 / 122.0 111.0 / 122.0 Dextrose 5% 100 ml @ 15 MG/HR 15 mls/hr IV .Q8H20M [facility] Rx#: [id number] Other: Other Intake Source NPO # Unmeasured Voids 1 Weight 86.4 kg 96.1 kg Weight Measurement Method Chair Scale Built in [facility] Diagnostic Findings Telemetry: Atrial fibrillation, heart rate currently well controlled. PG Care Time/CCT Total # of Minutes Spent Total Time Spent with Patient: Total time spent is greater than 50% in coordination of care (as documented) at patient's floor/unit and/or counseling patient: Coding Level of Care Code 70819 Initial Inpt Care Lvl 3 Diagnoses Rapid atrial fibrillation I48.91 Anticoagulant long-term use Z79.01 Elevated troponin R77.8
--- NOTE | 2022-07-20 10:18 | Pulmonary Consultation ---
Date of Consultation July 20, 2022 Assessment & Plan (1) Abnormal chest CT: (2) COPD with emphysema: (3) Ex-smoker: Plan CT chest 07/19/2022 Personally reviewed: Centrilobular emphysema appreciated bilaterally upper and lower lobes more pronounced in the upper lobes Minimal tree-in-bud opacities appreciated in the right upper lobe on the periphery 2.9 x 2.6 x 5 cm circumscribed structure paravertebral next to the thoracic aorta Motion degraded study There is a 5.4 cm fat density lesion within the posterior mediastinum transversing into abdominal Minimal mediastinal lymphadenopathy --Abnormal chest CT There seems to be paravertebral lesion left sided Nonspecific mediastinal lymphadenopathy This could be neurogenic in origin rather than a pulmonary or pleural MRI with and without contrast of the chest/vertebra focusing on the lesion can be thought of nonurgently, it can be done as an outpatient Case was discussed with Dr. Mathews --COPD with emphysema Not on any inhalers at home We will start the patient on Incruse to be used on a daily basis -- Ex-smoker [id number] smoking history Quit at the age of 55 Encouraged to continue abstinence from smoking -- A. fib On apixaban at home Plan: Nonemergent MRI with and without contrast of the chest/vertebra to be done to focus on the paravertebral lesion For mild tree-in-bud opacities in the right upper lobe, agree with doxycycline for 5 days. Incruse on a daily basis Please note the above document was generated using voice recognition software. It may contain grammatical, syntax or spelling errors.Any formal questions or concerns about the content, text or information contained within the body of this dictation should be directly addressed to the provider for clarification. History of Present Illness Attending Physician: Crystal De Souza MD History of Present Illness 67-year-old female was admitted to the hospital because of A. fib with RVR Past medical history: COPD, hypertension, dyslipidemia, diabetes Pulmonary consult because abnormal chest CT At the time of examination patient was lying comfortably on the bed. She says she is feeling better compared to when she came to the hospital Denies any issues with her breathing right now Occasional cough especially early in the morning with clear phlegm. Denies any hemoptysis. No night sweats, no unintentional weight loss No personal history of any lung cancer. Denies any fever or chills No dysuria, no diarrhea. No headache, no blurry vision Social history: Approximately [id number] smoking history, quit at the age of 55 No personal or family history of asthma No history of lung cancer in the family Allergies Allergy/AdvReac Type Severity Reaction Status Date / Time Cipro Allergy Mild SHORTNESS Verified 06/30/16 21:23 OF BREATH ciprofloxacin [Cipro] Allergy Mild SHORTNESS Verified 11/10/21 14:55 OF BREATH miconazole Allergy Mild Rash Verified 06/30/16 21:23 empagliflozin Allergy Unknown Unknown Verified 11/10/21 14:55 [From Jardiance] metformin Allergy Unknown Unknown Verified 11/10/21 14:56 Home Medications Medication Instructions Recorded Confirmed Type ASPIRIN (ASPIRIN EC) 81 mg PO DAILY ##0 06/30/16 History apixaban 5 mg tablet (Eliquis) 5 mg PO BID 07/20/22 07/20/22 History lisinopril 2.5 mg tablet 2.5 mg PO DAILY 07/20/22 07/20/22 History meloxicam 15 mg tablet 15 mg PO DAILY 07/20/22 07/20/22 History methimazole 10 mg tablet 10 mg PO DAILY 07/20/22 07/20/22 History metoprolol succinate 25 mg 25 mg PO BID 07/20/22 07/20/22 History tablet,extended release 24 hr omeprazole 20 mg capsule,delayed 20 mg PO DAILY 07/20/22 07/20/22 History release sitagliptin 100 mg tablet (Januvia) 100 mg PO DAILY 07/20/22 07/20/22 History tramadol 50 mg tablet 50 mg PO Q4H PRN Pain 07/20/22 07/20/22 History Patient History Medical History (Updated 07/20/22 @ 16:02 by Kmi Castellanos MD, [facility]) Atrial fibrillation Chronic lower back pain Degenerative arthritis of cervical spine Diabetes mellitus type 2 in obese Hypertension Hyperthyroidism Surgical History No pertinent past surgical history Social History Smoking Status: Former smoker Hx Alcohol Use: No Hx Substance Use: No Preferred Language: Chadian Communication Ability: Effective Clearance Cutter Required: No Beliefs That Will Affect Care: None Current Living Situation: Significant Other Feels Safe at Home: Yes Assistive Devices: Glasses Review of Systems Review of Systems: All systems reviewed & are unremarkable except as noted in HPI & below Physical Exam Physical Exam: Constitutional: No acute distress HEENT: EOMI, PERRLA Respiratory system: Decreased air entry bilaterally, no wheeze, no rhonchi, no crackles CVS: S1-S2 positive, no murmurs or gallops, irregular Abdomen: Soft, nontender, nondistended, positive bowel sounds x4, obese Extremities: +2 pulses bilaterally radialis/ dorsalis pedis, no cyanosis, +1 pitting edema bilateral lower extremity Neuro: Awake alert oriented x3 Psych: Normal mood and affect G/U: No [place] Skin: no rashes, warm and dry Lymphatic: no cervical or axillary lymphadenopathy Results & Data Results & [facility] ([facility]) Vital Signs (Past 12 Hours) Vital Signs Temp Pulse Pulse Resp BP Pulse Ox O2 Del Method 07/20/22 08:00 Room Air 07/20/22 08:08 36.7 C 82 19 115/69 90 Room Air 07/20/22 05:18 97 H 112/74 07/20/22 04:20 89 120/87 07/20/22 03:45 36.9 C 85 18 115/83 97 Nasal Cannula 07/19/22 23:40 135 H 07/19/22 23:40 Nasal Cannula 07/20/22 00:10 36.8 C 120 H 18 163/85 H 99 Nasal Cannula O2 Flow Rate 07/20/22 08:00 07/20/22 08:08 07/20/22 05:18 07/20/22 04:20 07/20/22 03:45 2 07/19/22 23:40 07/19/22 23:40 2 07/20/22 00:10 2 Laboratory Results 07/20/22 11:17 07/20/22 11:17 PG Care Time/CCT Total # of Minutes Spent Total Time Spent with Patient: Total time spent is greater than 50% in coordination of care (as documented) at patient's floor/unit and/or counseling patient: Coding Level of Care Code 46071 Initial Inpt Care Lvl [address] R93.89 COPD with emphysema J43.9 Ex-smoker Z87.891
[2022-07-20] MEDS: dilTIAZem HCL 240 MG CAPCR PO SCH (11:04)
[2022-07-20 11:38] LABS: Basophils # (auto) 0.03 K/uL (0-0.2); Basophils % (auto) 0.2 %; Eosinophils # (auto) 0.04 K/uL (0-0.50); Eosinophils % (auto) 0.3 %; Hematocrit (blood only) 48.1 % (34.1-44.9); Hemoglobin 15.6 g/dl (12.0-16.0); Immature Granulocytes # (auto) 0.04 K/uL (0.00-0.02); Immature Granulocytes % (auto) 0.3 %; Lymphocytes # (auto) 1.59 K/uL (1.2-3.4); Lymphocytes % (auto) 12.4 %; Mean Corpuscular Hemoglobin 30.2 pg (25.0-34.0); Mean Corpuscular Hgb Conc 32.4 g/dL (32.0-36.0); Mean Platelet Volume 11.1 fL (9.4-12.3); Monocytes # (auto) 0.97 K/uL (0.24-0.82); Monocytes % (auto) 7.6 %; Neutrophils # (auto) 10.12 K/uL (1.4-6.5); Neutrophils % (auto) 79.2 %; Platelet Count 232 K/uL (130-400); RDW Coefficient of Variation 13.5 % (11.5-14.5); RDW Standard Deviation 46.6 fL (36.4-46.3); Red Blood Count 5.17 M/uL (3.93-5.22); White Blood Count 12.79 K/ul (4.8-10.8)
[2022-07-20 12:06] LABS: BUN Creatinine Ratio 17.2 (10-20); Calcium 8.8 mg/dl (8.5-10.1); Creatinine Clr Calc Pharmacy 104.6 ml/min; Est GFR (African American) 112.1 ml/min; Est GFR (Non-African American) 96.7 ml/min; Magnesium 1.6 mg/dl (1.7-2.4)
[2022-07-20] MEDS: PANTOprazole 40 MG TAB PO SCH (12:39)
[2022-07-20] MEDS: SITagliptin PHOSPHATE 100 MG TAB PO SCH (12:39)
--- NOTE | 2022-07-20 12:53 | Electrocardiogram Report ---
Test Reason : Blood Pressure : / mmHG Vent. Rate : 179 BPM Atrial Rate : 241 BPM P-R Int : 000 ms QRS Dur : 090 ms QT Int : 272 ms P-R-T Axes : 000 067 149 degrees QTc Int : 469 ms Atrial fibrillation with rapid ventricular response Marked ST abnormality, possible inferior subendocardial injury ST depression in Lateral leads Abnormal ECG When compared with ECG of 30-JUN-2016 19:19, T wave inversion less evident in Inferior leads Confirmed by Cody Desai ([id number]) on 07/20/2022 12:53:08 PM Referred By: REFERRED SELF Confirmed By:Cody Desai
[2022-07-20] MEDS: UMECLIDINIUM BROMIDE 62.5MCG/BLISTER 7 PUFFS/INHALER INH SCH (14:09)
[2022-07-20] MEDS: MAGNESIUM SULFATE / D5W 1 GM/100 ML BAG IV SCH ×2 (14:42→18:25)
[2022-07-20] MEDS ORDERED: STAT IV Infusion **Titration per Protocol STA (15:10)
[2022-07-20] MEDS ORDERED: AMIODARONE IV BOLUS & DRIP IV STA (15:10)
[2022-07-20] MEDS ORDERED: 0.2 MICRON FILTER SET 1 EACH IV STA (15:10)
[2022-07-20] MEDS ORDERED: AMIODARONE 150MG / 100ML D5W IV ONE (15:12)
[2022-07-20] MEDS ORDERED: AMIODARONE 360MG / 200ML D5W IV ONE (15:13)
[2022-07-20] MEDS ORDERED: AMIODARONE / D5W 150 MG/100 ML BAG IV ONE (15:15)
[2022-07-20] MEDS ORDERED: AMIODARONE / D5W 360 MG/200 ML BAG IV ONE (15:25)
--- NOTE | 2022-07-20 15:51 | Hospitalist Progress Note ---
Date of Service July 20, 2022 Assessment & Plan (1) Elevated troponin: Plan: 67 y/o F Hx chronic back pain, HTN, HLD, DM II, hyperthyroid, chronic AF. presents with BL frontal neck pain. Upon auscultation in the ER, a rapid HR was noted. The pt was placed on a monitor which confirmed rapid AF with a rate of 180. She has not c/o CP, SOB, lightheadedness. Initial labs were notable for a trop of 745. TSH was WNL. Rapid AF is confirmed on EKG. It is also noted that she has some erythema and multiple small blisters on her distal lower extrems (L > R). She was apparently placed on antibiotics for this earlier in the week. CT angiogram chest negative for PE -Here with NSTEMI but could be myocardial demand ischemia secondary to rapid atrial fibrillation. Certainly could have underlying CAD given risk factors for such. ECG with marked ST depression in lateral leads when in rapid A. fib which resolved on subsequent ECG with controlled rates -Troponin has trended upwards shortly after admission to 2900-we will follow trend -Echocardiogram official read pending but preserved LV function and no wall motion abnormalities as per cardiology -Control atrial fibrillation rates as below -Will likely need ischemic evaluation in the near future -Continue aspirin, atorvastatin, but metoprolol has been discontinued by cardiology in favor of diltiazem (2) Rapid atrial fibrillation: Plan: Admitted and initially placed on a Diltiazem drip-rates are better controlled- converted to diltiazem to 40 Mg p.o. once daily by cardiology Echocardiogram with preserved LV function Patient has been reportedly taking Eliquis 5 mg once daily at home which is inappropriate dosing-continue Eliquis 5 Mg p.o. twice daily -Cardiology would like to start IV amiodarone to attempt chemical cardioversion in the setting of likely underlying CAD as above -Continue to monitor on telemetry -Keep electrolytes replete-replace magnesium today (3) Neck pain: Plan: Anterior neck pain seems to have resolved with resolution of rapid atrial fibrillation Still with significant posterior neck pain -Checking MRI cervical spine (4) Acute respiratory failure with hypoxia: Plan: Could be secondary to underlying emphysema in the setting of likely underlying CAD and rapid atrial fibrillation With some chronic changes on CT of the chest Continue 2 L nasal cannula and wean supplemental oxygen down to keep pulse ox greater than 88% May need two-step walk test prior to discharge (5) Diabetes mellitus type 2 in obese: Plan: does not take DM meds but allergies are reported to Metformin and Jardiance. Patient is refusing insulin here Hemoglobin A1c elevated at 8.1% -Restart home Januvia (6) Abnormal chest CT: Plan: CT angiogram of the chest performed for shortness of breath and noted to have heterogeneity of the thyroid. 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 Appreciate pulmonology consultation-recommends MRI of the chest and thoracic spine as this indeterminant circumscribed structure might be coming from the spine-ordered MRIs with Ativan to be given pre-MRI -Continue doxycycline for both possible cellulitis and bronchitis in the setting of COPD -Start umeclidinium inhaler 1 puff once daily and needs follow-up with pulmonology as an outpatient (7) NSTEMI (non-ST elevated myocardial infarction): Plan: As above (8) Hypomagnesemia: Plan: Replaced with 2 g of IV magnesium the setting of rapid atrial fibrillation Follow levels in the morning (9) Mediastinal lymphadenopathy: Plan: As above Follow-up with pulmonology as an outpatient (10) Dermatitis: Plan: Mild cellulitis is possible. cause of small blisters is not clear as they are concentrated on her LEs. Placed on Doxy. Recommend follow-up with dermatology as an outpatient (11) Chronic lower back pain: Plan: - cont Tramadol PRN (12) Hyperthyroidism: Plan: TSH WNL - cont methimazole Plan Disposition-continued stay on PCU Admission and Anticipated Discharge Date Admission Date: July 19, 2022 Subjective Patient reports feeling better. Still has some pain in the posterior neck which is worse than usual, but no further pain in the anterior neck. No heart palpitations. Her rates are better controlled and she was weaned off diltiazem drip and placed on oral diltiazem by cardiology this morning. She reports a longstanding rash on her bilateral legs for years, but in the last few months has also developed multiple papules that are itchy at times. She denies any chest pains but does have chronic lower back pain. Has chronic pain radiating down the right lower extremity and numbness and tingling in her feet. Discussed the abnormal findings on CT of the chest. Telemetry with atrial fibrillation with rates in the low 100s with 3 to 4-second pauses that look like she is trying to convert to sinus rhythm Patient is not agreeable to insulin Review of Systems Review of Systems: All systems reviewed & are unremarkable except as noted in HPI & below Physical Exam Constitutional: WD/WN, vitals as above Eyes: + anicteric sclerae ENMT: external ear and nose normal, oropharynx normal Neck: trachea midline, no thyromegaly Respiratory: normal respiratory effort, lungs clear to auscultation Cardiovascular: Rate/Rhythm: + tachycardic and + irregularly irregular Heart Sounds: no murmur Extremities: no edema Chest (Breasts): Chest: normal inspection of chest Gastrointestinal (Abdomen): normal bowel sounds, soft, nontender, no h epatosplenomegaly Musculoskeletal: Extremities: no cyanosis and no clubbing Skin: + rash (Mild erythema with chafing skin, scabs, on legs left greater than right) and + lesion (Multiple 4 to 5 mm pink papules on legs surrounding dermatitis); no erythema Neurologic: moves all extremities and awake; no focal motor deficits Psychiatric: A+Ox3, euthymic affect Lymphatic: no lymphedema Results & Data Results & Data ([facility]) Vital Signs (Past 12 Hours) Vital Signs Temp Pulse Resp BP Pulse Ox O2 Del Method 07/20/22 11:38 36.7 C 78 20 112/61 92 Room Air 07/20/22 08:00 Room Air 07/20/22 08:08 36.7 C 82 19 115/69 90 Room Air 07/20/22 05:18 97 H 112/74 07/20/22 04:20 89 120/87 Laboratory Results 07/20/22 07/20/22 07/20/22 Range/Units 16:10 11:31 11:17 WBC (4.8-10.8) K/ul RBC (3.93-5.22) M/uL Hgb (12.0-16.0) g/dl Hct (34.1-44.9) % MCV (80.0-100.0) fL MCH (25.0-34.0) pg MCHC (32.0-36.0) g/dL RDW Std Deviation (36.4-46.3) fL RDW Coeff of Rasheed (11.5-14.5) % Plt Count (130-400) K/uL MPV (9.4-12.3) fL Immature Gran % (Auto) % Neut % (Auto) % Lymph % (Auto) % Bryan % (Auto) % Eos % (Auto) % Baso % (Auto) % Neut # (Auto) (1.4-6.5) K/uL Lymph # (Auto) (1.2-3.4) K/uL Bryan # (Auto) (0.24-0.82) K/uL Eos # (Auto) (0-0.50) K/uL Baso # (Auto) (0-0.2) K/uL Immature Gran # (Auto) (0.00-0.02) K/uL Sodium (136-145) mmol/L Potassium (3.5-5.1) mmol/L Chloride (98-107) mmol/L Carbon Dioxide (21-32) mmol/L Anion Gap (3-11) BUN (6-23) mg/dl Creatinine (0.6-1.2) mg/dl Est Cr Clr Drug Dosing ml/min Est GFR ( Amer) ml/min Est GFR (Non-Af Amer) ml/min BUN/Creatinine Ratio (10-20) Glucose (70-99(Fasting)) mg/dl POC Glucose 203 H 173 H (70-99) mg/dl Estimat Average Glucose mg/dl Hemoglobin A1c (4.5-5.6) % Calcium (8.5-10.1) mg/dl Magnesium (1.7-2.4) mg/dl Troponin I High Sens 2907.4 H* (0-14) pg/ml 07/20/22 07/20/22 07/20/22 Range/Units 11:17 11:17 06:55 WBC 12.79 H (4.8-10.8) K/ul RBC 5.17 (3.93-5.22) M/uL Hgb 15.6 (12.0-16.0) g/dl Hct 48.1 H (34.1-44.9) % MCV 93.0 (80.0-100.0) fL MCH 30.2 (25.0-34.0) pg MCHC 32.4 (32.0-36.0) g/dL RDW Std Deviation 46.6 H (36.4-46.3) fL RDW Coeff of Rasheed 13.5 (11.5-14.5) % Plt Count 232 (130-400) K/uL MPV 11.1 (9.4-12.3) fL Immature Gran % (Auto) 0.3 % Neut % (Auto) 79.2 % Lymph % (Auto) 12.4 % Bryan % (Auto) 7.6 % Eos % (Auto) 0.3 % Baso % (Auto) 0.2 % Neut # (Auto) 10.12 H (1.4-6.5) K/uL Lymph # (Auto) 1.59 (1.2-3.4) K/uL Bryan # (Auto) 0.97 H (0.24-0.82) K/uL Eos # (Auto) 0.04 (0-0.50) K/uL Baso # (Auto) 0.03 (0-0.2) K/uL Immature Gran # (Auto) 0.04 H (0.00-0.02) K/uL Sodium 139 (136-145) mmol/L Potassium 4.0 (3.5-5.1) mmol/L Chloride 103 (98-107) mmol/L Carbon Dioxide 28 (21-32) mmol/L Anion Gap 8 (3-11) BUN 10 (6-23) mg/dl Creatinine 0.58 L (0.6-1.2) mg/dl Est Cr Clr Drug Dosing 104.6 ml/min Est GFR ( Amer) 112.1 ml/min Est GFR (Non-Af Amer) 96.7 ml/min BUN/Creatinine Ratio 17.2 (10-20) Glucose 169 H (70-99(Fasting)) mg/dl POC Glucose 161 H (70-99) mg/dl Estimat Average Glucose mg/dl Hemoglobin A1c (4.5-5.6) % Calcium 8.8 (8.5-10.1) mg/dl Magnesium 1.6 L (1.7-2.4) mg/dl Troponin I High Sens (0-14) pg/ml 07/20/22 07/20/22 07/19/22 Range/Units 05:24 05:24 23:45 WBC (4.8-10.8) K/ul RBC (3.93-5.22) M/uL Hgb (12.0-16.0) g/dl Hct (34.1-44.9) % MCV (80.0-100.0) fL MCH (25.0-34.0) pg MCHC (32.0-36.0) g/dL RDW Std Deviation (36.4-46.3) fL RDW Coeff of Rasheed (11.5-14.5) % Plt Count (130-400) K/uL MPV (9.4-12.3) fL Immature Gran % (Auto) % Neut % (Auto) % Lymph % (Auto) % Bryan % (Auto) % Eos % (Auto) % Baso % (Auto) % Neut # (Auto) (1.4-6.5) K/uL Lymph # (Auto) (1.2-3.4) K/uL Bryan # (Auto) (0.24-0.82) K/uL Eos # (Auto) (0-0.50) K/uL Baso # (Auto) (0-0.2) K/uL Immature Gran # (Auto) (0.00-0.02) K/uL Sodium (136-145) mmol/L Potassium (3.5-5.1) mmol/L Chloride (98-107) mmol/L Carbon Dioxide (21-32) mmol/L Anion Gap (3-11) BUN (6-23) mg/dl Creatinine (0.6-1.2) mg/dl Est Cr Clr Drug Dosing ml/min Est GFR ( Amer) ml/min Est GFR (Non-Af Amer) ml/min BUN/Creatinine Ratio (10-20) Glucose (70-99(Fasting)) mg/dl POC Glucose (70-99) mg/dl Estimat Average Glucose 186 mg/dl Hemoglobin A1c 8.1 H (4.5-5.6) % Calcium (8.5-10.1) mg/dl Magnesium (1.7-2.4) mg/dl Troponin I High Sens 2448.3 H* D 1860.2 H* D (0-14) pg/ml 07/19/22 Range/Units 23:44 WBC (4.8-10.8) K/ul RBC (3.93-5.22) M/uL Hgb (12.0-16.0) g/dl Hct (34.1-44.9) % MCV (80.0-100.0) fL MCH (25.0-34.0) pg MCHC (32.0-36.0) g/dL RDW Std Deviation (36.4-46.3) fL RDW Coeff of Rasheed (11.5-14.5) % Plt Count (130-400) K/uL MPV (9.4-12.3) fL Immature Gran % (Auto) % Neut % (Auto) % Lymph % (Auto) % Bryan % (Auto) % Eos % (Auto) % Baso % (Auto) % Neut # (Auto) (1.4-6.5) K/uL Lymph # (Auto) (1.2-3.4) K/uL Bryan # (Auto) (0.24-0.82) K/uL Eos # (Auto) (0-0.50) K/uL Baso # (Auto) (0-0.2) K/uL Immature Gran # (Auto) (0.00-0.02) K/uL Sodium (136-145) mmol/L Potassium (3.5-5.1) mmol/L Chloride (98-107) mmol/L Carbon Dioxide (21-32) mmol/L Anion Gap (3-11) BUN (6-23) mg/dl Creatinine (0.6-1.2) mg/dl Est Cr Clr Drug Dosing ml/min Est GFR ( Amer) ml/min Est GFR (Non-Af Amer) ml/min BUN/Creatinine Ratio (10-20) Glucose (70-99(Fasting)) mg/dl POC Glucose 176 H (70-99) mg/dl Estimat Average Glucose mg/dl Hemoglobin A1c (4.5-5.6) % Calcium (8.5-10.1) mg/dl Magnesium (1.7-2.4) mg/dl Troponin I High Sens (0-14) pg/ml Diagnostic Findings Chest CTA 07/19/22 20:13 CT angio chest PE protocol CT DOSE: 585.48 mGy.cm HISTORY: 67 years-old Female with eval for PE. Acute shortness of breath TECHNIQUE: Multiple CTA images of the chest were obtained after the intravenous administration of 107 ml Optiray. Coronal and sagittal MIPS were obtained from the axial data set and were submitted for review. All measurements were obtained according to NASCET criteria. A dose lowering technique was utilized adhering to the principles of ALARA. COMPARISON: Chest radiograph of same day FINDINGS: CTA: The heart is upper limits of normal in size. There is no pericardial effusion. Moderate coronary artery calcifications. Mild mural fatty changes of the left ventricular apex. Atherosclerosis of the thoracic aorta with patency of the imaged great vessels. Unremarkable pulmonary artery. The segmental and subsegmental branches however within the lung bases are suboptimally evaluated secondary to respiratory motion artifact. CT CHEST: Heterogeneity of the thyroid. 2.0 x 1.4 cm right hilar lymph node. Lipoma of the right diaphragmatic mackenzie, 5.4 x 3.6 cm. Indeterminate hypodense 2.9 x 2.6 x 5.0 cm circumscribed structure is noted with within the posterior mediastinum adjacent to the descending thoracic aorta the level of the midthoracic spine. Trace right pleural effusion. Intralobular and bronchial wall thickening. Emphysema. Minimal subpleural patchy consolidative opacities within the right upper lobe. No acute process of the imaged upper abdomen. Unremarkable soft tissues. No acute fracture. Degenerative changes of the shoulders and spine. IMPRESSION: 1. No pulmonary emboli. 2. Cardiomegaly with mild pulmonary edema and trace right pleural effusion. 3. Emphysema with bronchial wall thickening suggestive of bronchitis. Mild subsegmental subpleural opacities of the right upper lobe may represent a subtle infectious or inflammatory pneumonitis. 4. Likely reactive right hilar lymphadenopathy. 5. 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 ACT 112: Negative or not required by law. The above report was generated using voice recognition software. It may contain grammatical, syntax or spelling errors. Electronically signed by: Macario Colindres M.D. 07/19/2022 9:48 PM PG Care Time/CCT Total # of Minutes Spent Total Time Spent with Patient: Total time spent is greater than 50% in coordination of care (as documented) at patient's floor/unit and/or counseling patient: Coding Level of Care Code 54033 Subseq Hosp Care Lvl 3 Diagnoses Elevated troponin R77.8 Rapid atrial fibrillation I48.91 Neck pain M54.2 Acute respiratory failure with hypoxia J96.01 Diabetes mellitus type 2 in obese E11.69; E66.[address] R93.89 NSTEMI (non-ST elevated myocardial infarction) I21.4 Hypomagnesemia E83.42 Mediastinal lymphadenopathy R59.0 Dermatitis L30.9 Chronic lower back pain M54.50; G89.29 Hyperthyroidism E05.90
[2022-07-20] MEDS ORDERED: LORazepam 1 MG in SYRINGE 0 ML IV PRN (16:15)
--- NOTE | 2022-07-20 16:47 | Electrocardiogram Report ---
Test Reason : Blood Pressure : / mmHG Vent. Rate : 081 BPM Atrial Rate : 234 BPM P-R Int : 000 ms QRS Dur : 084 ms QT Int : 352 ms P-R-T Axes : 000 058 202 degrees QTc Int : 408 ms Atrial fibrillation Abnormal ECG When compared with ECG of 19-JUL-2022 18:25, (unconfirmed) Vent. rate has decreased BY [address] no longer depressed in Inferior leads ST less depressed in Lateral leads Nonspecific T wave abnormality now evident in Anterior leads Confirmed by Cody Desai ([id number]) on 07/20/2022 4:47:34 PM Referred By: REFERRED SELF Confirmed By:Cody Desai
[2022-07-20] MEDS ORDERED: GADOBUTROL 10ML VIAL IV ONE (18:14)
[2022-07-20] MEDS ORDERED: ATORVASTATIN 20 MG TAB PO SCH (21:00)
[2022-07-20] MEDS: AMIODARONE / D5W 360 MG/200 ML BAG IV SCH (21:59)
[2022-07-21 06:17] LABS: Basophils # (auto) 0.05 K/uL (0-0.2); Basophils % (auto) 0.4 %; Eosinophils # (auto) 0.07 K/uL (0-0.50); Eosinophils % (auto) 0.5 %; Hemoglobin 15.3 g/dl (12.0-16.0); Immature Granulocytes # (auto) 0.07 K/uL (0.00-0.02); Immature Granulocytes % (auto) 0.5 %; Lymphocytes # (auto) 1.96 K/uL (1.2-3.4); Lymphocytes % (auto) 15.4 %; Mean Corpuscular Hemoglobin 30.5 pg (25.0-34.0); Mean Corpuscular Hgb Conc 33.3 g/dL (32.0-36.0); Mean Corpuscular Volume 91.8 fL (80.0-100.0); Mean Platelet Volume 11.4 fL (9.4-12.3); Monocytes # (auto) 1.03 K/uL (0.24-0.82); Monocytes % (auto) 8.1 %; Neutrophils # (auto) 9.58 K/uL (1.4-6.5); Neutrophils % (auto) 75.1 %; Platelet Count 232 K/uL (130-400); RDW Coefficient of Variation 13.7 % (11.5-14.5); RDW Standard Deviation 46.3 fL (36.4-46.3); Red Blood Count 5.01 M/uL (3.93-5.22); White Blood Count 12.76 K/ul (4.8-10.8)
[2022-07-21 06:41] LABS: Albumin Globulin Ratio 1.2 (0.9-2); Albumin Level 3.7 gm/dl (3.4-5.0); Bilirubin,Total 0.4 mg/dl (0.2-1.0); Creatinine Clr Calc Pharmacy 76.8 ml/min; Est GFR (Non-African American) 78.6 ml/min; Globulin 3.1 gm/dl (2.5-4.0); Magnesium 1.9 mg/dl (1.7-2.4); Potassium 3.9 mmol/L (3.5-5.1); Total Protein 6.8 gm/dl (6.0-8.3)
--- NOTE | 2022-07-21 07:11 | XCELERA ---
[id number]___[id number]
--- NOTE | 2022-07-21 07:51 | Magnetic Resonance Report ---
MR thoracic spine wo/w con HISTORY: 67 years-old Female posterior mediastinal mass acute mid back pain. Follow-up study in a pa tient with a benign appearing posterior mediastinal mass. COMPARISON: CTA chest 07/19/2022 TECHNIQUE: Multiplanar multisequence MRI of the thoracic spine was obtained both with and without the use of 9.5 cc Gadavist FINDINGS: This study is motion degraded. Moderate intervertebral disc space narrowing with posterior disc osteo phyte complex incidentally noted at L3-L4 on the gear inspector localizer images. Colonic diverticulosis. Trac e pleural effusions. There is a circumscribed thin-walled T2 hyperintense lesion of the posterior med iastinum abutting the posterior aspect of the descending thoracic aorta at the level of T6-T8 measuri ng 3.5 x 2.8 x 5.0 cm. This demonstrates no enhancement. No erosion of the adjacent bony structures. Lipoma of the right diaphragmatic mackenzie measures up to 5.4 x 3.6 cm. Normal signal within the thoracic spinal cord. Conus medullaris terminates at the L1-L2 level. Modera te marrow edema involving the T8, T9, T10, L3 and partially imaged L4 vertebral bodies. There is mode rate intervertebral disc space narrowing at T9-T10 and L3-L4 with L3-L4 posterior annular disc bulge. There is mild to moderate multilevel disc space narrowing throughout the spine with mild spondylitic spurring and mild to moderate facet arthrosis. No high-grade central canal or neural foraminal narro wing identified. There is however suggestion of mild multilevel neural foraminal stenosis. No endplat e erosions. IMPRESSION: 1. Motion degraded exam. 2. 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 3. Moderate marrow edema within the mid thoracic and imaged upper lumbar spine is likely on a degener ative basis. 4. No abnormal enhancement, significant central canal or neural foraminal stenosis. 5. Normal signal of the thoracic spinal cord. ACT 112: Negative or not required by law. The above report was generated using voice recognition software. It may contain grammatical, syntax o r spelling errors. Electronically signed by: Macario Colindres M.D. 07/21/2022 7:49 AM
--- NOTE | 2022-07-21 07:57 | Magnetic Resonance Report ---
MRI OF THE CERVICAL SPINE WITH AND WITHOUT CONTRAST CLINICAL HISTORY: Severe neck pain. COMPARISON: Cervical spine radiograph September 26, 2017. TECHNIQUE: Utilizing a 1.5 Lacie magnet and dedicated coil, multiplanar, multiecho imaging of the ce rvical spine was performed before and after intravenous administration of 9.5 of Gadavist. FINDINGS: This study is mildly compromised by motion artifact. Reversal of the normal cervical lordosis is note d. There is no cervical spine fracture. No suspicious marrow replacement within the cervical spine is noted. Cervical cord signal and caliber are normal. There is no intracanalicular mass or fluid colle ction. Paravertebral soft tissues are unremarkable. Visualized portions of the posterior fossa are un remarkable. There is no abnormal enhancement within the cervical canal. Severe multilevel facet arthr osis is present. There is mild multilevel degenerative disc disease. C2-C3: The central canal is patent. There is mild bilateral neural foraminal stenosis. C3-C4: There is slight anterolisthesis of C3 on C4. This is likely due to facet arthrosis. There is moderate to severe bilateral neural foraminal stenosis. This is predominantly due to facet arthrosis. C4-C5: Minimal posterior disc osteophyte effaces the ventral thecal sac. There is mild central canal stenosis at this level. Moderate to severe left and mild right neural foraminal stenosis is present. This is predominantly due to facet arthrosis. C5-C6: Moderate disc space narrowing is noted. Posterior disc osteophyte complex contacts the ventra l aspect of the cord. There is moderate central canal stenosis. Moderate to severe right and mild lef t neural foraminal stenosis is present. C6-C7: Posterior disc osteophyte complex effaces the ventral thecal sac. There is mild central canal stenosis. There is mild bilateral neural foraminal stenosis. C7-T1: Central canal and neural foramen are patent. IMPRESSION: 1. Exam compromised by motion artifact. No acute process identified within the cervical spine by MRI. 2. Mild multilevel degenerative disc disease and severe facet arthrosis. Moderate central canal steno sis at C5-C6. Otherwise, mild central canal stenosis. 3. Moderate to severe multilevel neural foraminal stenosis, as detailed above. ACT 112: Negative or not required by law. Electronically signed by: Danilo Mathews M.D. 07/21/2022 7:54 AM
[2022-07-21] MEDS: SITagliptin PHOSPHATE 100 MG TAB PO SCH (08:08)
[2022-07-21] MEDS: PANTOprazole 40 MG TAB PO SCH (08:08)
[2022-07-21] MEDS: methIMAzole 5 MG TABLET PO SCH (08:08)
[2022-07-21] MEDS: APIXABAN 5 MG TABLET PO SCH ×2 (08:08→21:17)
[2022-07-21] MEDS: dilTIAZem HCL 240 MG CAPCR PO SCH (08:08)
[2022-07-21] MEDS: ASPIRIN 81 MG ECTAB PO SCH (08:08)
[2022-07-21] MEDS: UMECLIDINIUM BROMIDE 62.5MCG/BLISTER 7 PUFFS/INHALER INH SCH (08:09)
[2022-07-21] MEDS: INSULIN ASPART PER UNIT SC SCH ×4 (08:16→21:18)
[2022-07-21] MEDS: traMADol HCL 50 MG TABLET PO PRN ×3 (09:47→22:51)
--- NOTE | 2022-07-21 10:34 | Pulmonology Progress Note ---
Date of Service July 21, 2022 Assessment & Plan (1) Abnormal chest CT: (2) COPD with emphysema: (3) Ex-smoker: Plan CT chest 07/19/2022 Personally reviewed: Centrilobular emphysema appreciated bilaterally upper and lower lobes more pronounced in the upper lobes Minimal tree-in-bud opacities appreciated in the right upper lobe on the periphery 2.9 x 2.6 x 5 cm circumscribed structure paravertebral next to the thoracic aorta Motion degraded study There is a 5.4 cm fat density lesion within the posterior mediastinum transversing into abdominal Minimal mediastinal lymphadenopathy --Abnormal chest CT There seems to be paravertebral lesion left sided Nonspecific mediastinal lymphadenopathy This could be neurogenic in origin rather than a pulmonary or pleural MRI of the thoracic spine was done which redemonstrated the posterior mediastinal lesion which appears benign and 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 Mathews --COPD with emphysema Not on any inhalers at home Continue with Incruse on a daily basis -- Ex-smoker [id number] smoking history Quit at the age of 55 Encouraged to continue abstinence from smoking -- A. fib On apixaban at home Plan: Complete the course of doxycycline for 5 days Incruse on daily basis Outpatient follow-up with home health travel ot Case discussed with Dr. De Souza No further recommendation from pulmonary perspective. We will sign off Please call directly with any questions Please note the above document was generated using voice recognition software. It may contain grammatical, syntax or spelling errors.Any formal questions or concerns about the content, text or information contained within the body of this dictation should be directly addressed to the provider for clarification. Admission and Anticipated Discharge Date Admission Date: July 19, 2022 Subjective Patient seen and examined at bedside. No acute distress, no adverse events overnight. Denies any headache, no nausea, no vomiting No shortness of breath No cough, fair appetite I personally explained to the patient how to use Incruse inhaler Review of Systems Review of Systems: All systems reviewed & are unremarkable except as noted in Subjective Physical Exam Physical Exam: Constitutional: No acute distress HEENT: EOMI, PERRLA Respiratory system: Decreased air entry bilaterally, no wheeze, no rhonchi, no crackles CVS: S1-S2 positive, no murmurs or gallops, irregular Abdomen: Soft, nontender, nondistended, positive bowel sounds x4, obese Extremities: +2 pulses bilaterally radialis/ dorsalis pedis, no cyanosis, +1 pitting edema bilateral lower extremity Neuro: Awake alert oriented x3 Psych: Normal mood and affect G/U: No Gould Skin: no rashes, warm and dry Lymphatic: no cervical or axillary lymphadenopathy Results & Data Results & Data ([facility]) Vital Signs (Past 12 Hours) Vital Signs Temp Pulse Pulse Resp BP Pulse Ox O2 Del Method 07/21/22 07:23 36.6 C 82 19 140/88 92 Room Air 07/20/22 23:00 91 H 07/21/22 03:34 36.6 C 100 H 18 113/78 90 Room Air 07/20/22 22:57 37.2 C 92 H 18 121/83 92 Room Air Laboratory Results 07/21/22 05:17 07/21/22 05:17 PG Care Time/CCT Total # of Minutes Spent Total Time Spent with Patient: Total time spent is greater than 50% in coordination of care (as documented) at patient's floor/unit and/or counseling patient: Coding Level of Care Code 29272 Subseq Hosp Care Lvl [address] R93.89 COPD with emphysema J43.9 Ex-smoker Z87.891
--- NOTE | 2022-07-21 10:45 | Hospitalist Progress Note ---
Date of Service July 21, 2022 Assessment & Plan (1) Elevated troponin: Plan: 67 y/o F Hx chronic back pain, HTN, HLD, DM II, hyperthyroid, chronic AF. presents with BL frontal neck pain. Upon auscultation in the ER, a rapid HR was noted. The pt was placed on a monitor which confirmed rapid AF with a rate of 180. She has not c/o CP, SOB, lightheadedness. Initial labs were notable for a trop of 745. TSH was WNL. Rapid AF is confirmed on EKG. It is also noted that she has some erythema and multiple small blisters on her distal lower extrems (L > R). She was apparently placed on antibiotics for this earlier in the week. CT angiogram chest negative for PE No chest pain but suspect anterior neck pain was her anginal equivalent-this is resolved with improvement in hear rate -Here with NSTEMI but could be myocardial demand ischemia secondary to rapid a trial fibrillation. Certainly could have underlying CAD given risk factors for such. ECG with marked ST depression in lateral leads when in rapid A. fib which resolved on subsequent ECG with controlled rates -Troponin has peaked at 2900-we will follow trend again tomorrow -Echocardiogram with preserved LV function and no wall motion abnormalities as per cardiology -Control atrial fibrillation rates as below -Will likely need ischemic evaluation in the near future-will d/w Cardiology regarding possible cath although pt unsure if she would proceed with this -Continue aspirin, atorvastatin, but metoprolol has been discontinued by cardiology in favor of diltiazem (2) Rapid atrial fibrillation: Plan: Admitted and initially placed on a Diltiazem drip-rates are better controlled- converted to diltiazem to 240 Mg p.o. once daily by cardiology Echocardiogram with preserved LV function Patient has been reportedly taking Eliquis 5 mg once daily at home which is inappropriate dosing-continue Eliquis 5 Mg p.o. twice daily -Cardiology started IV amiodarone to attempt chemical cardioversion in the setting of likely underlying CAD as above-having multiple pauses, trying to convert -rates not well controlled 90-100s -Continue to monitor on telemetry -Keep electrolytes replete-replace magnesium and KCl po today to keep >2.0 and 4.0, respectively (3) Neck pain: Plan: Anterior neck pain seems to have resolved with resolution of rapid atrial fibrillation-anginal equivalent Still withsome posterior neck pain -Checking MRI cervical spine-DJD, spme stenosis -consulted Ortho Spine for cyst (4) Depression with anxiety: Plan: admits to a lot of "stress" and anxiety, feels depressed most days of the week, ongoing for a long time denies SI requesting medication as was on something daily in the past (can't recall which drug) that really helped her feel better no h/o goldie, no FH of bipolar d/o or schizophrenia -start Zoloft 25mg po hs x 7 days then increase to 50mg hs and advised close f/u with PCP (5) Acute respiratory failure with hypoxia: Plan: Could be secondary to underlying emphysema in the setting of likely underlying CAD and rapid atrial fibrillation With some chronic changes on CT of the chest Now weaned off O2 Continue supplemental oxygen down to keep pulse ox greater than 88% May need two-step walk test prior to discharge started Incruse inhaler as per PULM needs PFTs outpt (6) Diabetes mellitus type 2 in obese: Plan: does not take DM meds but allergies are reported to Metformin and Jardiance. Patient is refusing insulin here Hemoglobin A1c elevated at 8.1% -cont home Januvia (7) Abnormal chest CT: Plan: CT angiogram of the chest performed for shortness of breath and noted to have heterogeneity of the thyroid. 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 Appreciate pulmonology consultation-recommends MRI of the chest and thoracic spine as this indeterminant circumscribed structure might be coming from the spine MRI shows 5 cm neuroenteric cyst likely developmental--> consult [facility] for further eval -Continue doxycycline for both possible cellulitis and bronchitis in the setting of COPD -Started umeclidinium inhaler 1 puff once daily and needs follow-up with pulmonology as an outpatient (8) NSTEMI (non-ST elevated myocardial infarction): Plan: As above (9) Hypomagnesemia: Plan: as above (10) Mediastinal lymphadenopathy: Plan: As above Follow-up with pulmonology as an outpatient (11) Dermatitis: Plan: Mild cellulitis is possible. cause of small blisters is not clear as they are concentrated on her LEs. Placed on Doxy. 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 No SOB. Had multiple 3-4 second pauses on tele in the last 24 hrs, not symptomatic, remains in Afib, rates 90-100s. Pt asks about starting on medication for "stress" and anxiety. Also reports feeling down on most days of the week, denies SI. Never saw psychiatry or a therapist in the past. Was on medication many years ago but can't remember the name of it but said it helped a lot. She is agreeable to a trial of Zoloft Review of Systems Review of Systems: All systems reviewed & are unremarkable except as noted in HPI & below Physical Exam Constitutional: WD/WN, vitals as above Eyes: + anicteric sclerae Neck: trachea midline, no thyromegaly Respiratory: normal respiratory effort, lungs clear to auscultation Cardiovascular: Rate/Rhythm: + tachycardic (mild) and + irregularly irregular Heart Sounds: no murmur Extremities: no edema Chest (Breasts): Chest: normal inspection of chest Gastrointestinal (Abdomen): normal bowel sounds, soft, nontender, no hepatosplenomegaly Musculoskeletal: Extremities: no cyanosis and no clubbing Skin: + rash (Mild erythema with chafing skin, scabs, on legs left greater than right) and + lesion (Multiple 4 to 5 mm pink papules on legs surrounding dermatitis); no erythema Neurologic: moves all extremities and awake; no focal motor deficits Psychiatric: Orientation: alert, oriented x 3 and cooperative Eye Contact: + fair eye contact Speech: normal rate/rhythm/volume of speech Affect: + depressed affect Mood: + depressed mood and + anxious mood Suicidal Thou ghts: denies suicidal thoughts Estimated Intelligence: + below average estimated intelligence Lymphatic: no lymphedema Results & Data Results & Data ([facility]) Vital Signs (Past 12 Hours) Vital Signs Temp Pulse Pulse Resp BP Pulse Ox O2 Del Method 07/21/22 07:23 36.6 C 82 19 140/88 92 Room Air 07/20/22 23:00 91 H 07/21/22 03:34 36.6 C 100 H 18 113/78 90 Room Air 07/20/22 22:57 37.2 C 92 H 18 121/83 92 Room Air Laboratory Results 07/21/22 07/21/22 07/21/22 Range/Units 11:04 07:11 05:17 WBC (4.8-10.8) K/ul RBC (3.93-5.22) M/uL Hgb (12.0-16.0) g/dl Hct (34.1-44.9) % MCV (80.0-100.0) fL MCH (25.0-34.0) pg MCHC (32.0-36.0) g/dL RDW Std Deviation (36.4-46.3) fL RDW Coeff of Rasheed (11.5-14.5) % Plt Count (130-400) K/uL MPV (9.4-12.3) fL Immature Gran % (Auto) % Neut % (Auto) % Lymph % (Auto) % Morgan % (Auto) % Eos % (Auto) % Baso % (Auto) % Neut # (Auto) (1.4-6.5) K/uL Lymph # (Auto) (1.2-3.4) K/uL Morgan # (Auto) (0.24-0.82) K/uL Eos # (Auto) (0-0.50) K/uL Baso # (Auto) (0-0.2) K/uL Immature Gran # (Auto) (0.00-0.02) K/uL Sodium 133 L (136-145) mmol/L Potassium 3.9 (3.5-5.1) mmol/L Chloride 101 (98-107) mmol/L Carbon Dioxide 28 (21-32) mmol/L Anion Gap 4 (3-11) BUN 15 (6-23) mg/dl Creatinine 0.79 (0.6-1.2) mg/dl Est Cr Clr Drug Dosing 76.8 ml/min Est GFR ( Amer) 91.0 ml/min Est GFR (Non-Af Amer) 78.6 ml/min BUN/Creatinine Ratio 19.0 (10-20) Glucose 199 H (70-99(Fasting)) mg/dl POC Glucose 198 H 168 H (70-99) mg/dl Calcium 9.0 (8.5-10.1) mg/dl Magnesium 1.9 (1.7-2.4) mg/dl Total Bilirubin 0.4 (0.2-1.0) mg/dl AST 23 (13-39) U/L ALT 14 (7-52) U/L Alkaline Phosphatase 64 (34-104) U/L Troponin I High Sens (0-14) pg/ml Total Protein 6.8 (6.0-8.3) gm/dl Albumin 3.7 (3.4-5.0) gm/dl Globulin 3.1 (2.5-4.0) gm/dl Albumin/Globulin Ratio 1.2 (0.9-2) 07/21/22 07/20/22 07/20/22 Range/Units 05:17 20:48 20:00 WBC 12.76 H (4.8-10.8) K/ul RBC 5.01 (3.93-5.22) M/uL Hgb 15.3 (12.0-16.0) g/dl Hct 46.0 H (34.1-44.9) % MCV 91.8 (80.0-100.0) fL MCH 30.5 (25.0-34.0) pg MCHC 33.3 (32.0-36.0) g/dL RDW Std Deviation 46.3 (36.4-46.3) fL RDW Coeff of Rasheed 13.7 (11.5-14.5) % Plt Count 232 (130-400) K/uL MPV 11.4 (9.4-12.3) fL Immature Gran % (Auto) 0.5 % Neut % (Auto) 75.1 % Lymph % (Auto) 15.4 % Morgan % (Auto) 8.1 % Eos % (Auto) 0.5 % Baso % (Auto) 0.4 % Neut # (Auto) 9.58 H (1.4-6.5) K/uL Lymph # (Auto) 1.96 (1.2-3.4) K/uL Morgan # (Auto) 1.03 H (0.24-0.82) K/uL Eos # (Auto) 0.07 (0-0.50) K/uL Baso # (Auto) 0.05 (0-0.2) K/uL Immature Gran # (Auto) 0.07 H (0.00-0.02) K/uL Sodium (136-145) mmol/L Potassium (3.5-5.1) mmol/L Chloride (98-107) mmol/L Carbon Dioxide (21-32) mmol/L Anion Gap (3-11) BUN (6-23) mg/dl Creatinine (0.6-1.2) mg/dl Est Cr Clr Drug Dosing ml/min Est GFR ( Amer) ml/min Est GFR (Non-Af Amer) ml/min BUN/Creatinine Ratio (10-20) Glucose (70-99(Fasting)) mg/dl POC Glucose 190 H (70-99) mg/dl Calcium (8.5-10.1) mg/dl Magnesium (1.7-2.4) mg/dl Total Bilirubin (0.2-1.0) mg/dl AST (13-39) U/L ALT (7-52) U/L Alkaline Phosphatase (34-104) U/L Troponin I High Sens 2494.9 H* (0-14) pg/ml Total Protein (6.0-8.3) gm/dl Albumin (3.4-5.0) gm/dl Globulin (2.5-4.0) gm/dl Albumin/Globulin Ratio (0.9-2) 07/20/22 07/20/22 07/20/22 Range/Units 16:10 11:31 11:17 WBC (4.8-10.8) K/ul RBC (3.93-5.22) M/uL Hgb (12.0-16.0) g/dl Hct (34.1-44.9) % MCV (80.0-100.0) fL MCH (25.0-34.0) pg MCHC (32.0-36.0) g/dL RDW Std Deviation (36.4-46.3) fL RDW Coeff of Rasheed (11.5-14.5) % Plt Count (130-400) K/uL MPV (9.4-12.3) fL Immature Gran % (Auto) % Neut % (Auto) % Lymph % (Auto) % Morgan % (Auto) % Eos % (Auto) % Baso % (Auto) % Neut # (Auto) (1.4-6.5) K/uL Lymph # (Auto) (1.2-3.4) K/uL Morgan # (Auto) (0.24-0.82) K/uL Eos # (Auto) (0-0.50) K/uL Baso # (Auto) (0-0.2) K/uL Immature Gran # (Auto) (0.00-0.02) K/uL Sodium (136-145) mmol/L Potassium (3.5-5.1) mmol/L Chloride (98-107) mmol/L Carbon Dioxide (21-32) mmol/L Anion Gap (3-11) BUN (6-23) mg/dl Creatinine (0.6-1.2) mg/dl Est Cr Clr Drug Dosing ml/min Est GFR ( Amer) ml/min Est GFR (Non-Af Amer) ml/min BUN/Creatinine Ratio (10-20) Glucose (70-99(Fasting)) mg/dl POC Glucose 203 H 173 H (70-99) mg/dl Calcium (8.5-10.1) mg/dl Magnesium (1.7-2.4) mg/dl Total Bilirubin (0.2-1.0) mg/dl AST (13-39) U/L ALT (7-52) U/L Alkaline Phosphatase (34-104) U/L Troponin I High Sens 2907.4 H* (0-14) pg/ml Total Protein (6.0-8.3) gm/dl Albumin (3.4-5.0) gm/dl Globulin (2.5-4.0) gm/dl Albumin/Globulin Ratio (0.9-2) 07/20/22 07/20/22 Range/Units 11:17 11:17 WBC 12.79 H (4.8-10.8) K/ul RBC 5.17 (3.93-5.22) M/uL Hgb 15.6 (12.0-16.0) g/dl Hct 48.1 H (34.1-44.9) % MCV 93.0 (80.0-100.0) fL MCH 30.2 (25.0-34.0) pg MCHC 32.4 (32.0-36.0) g/dL RDW Std Deviation 46.6 H (36.4-46.3) fL RDW Coeff of Rasheed 13.5 (11.5-14.5) % Plt Count 232 (130-400) K/uL MPV 11.1 (9.4-12.3) fL Immature Gran % (Auto) 0.3 % Neut % (Auto) 79.2 % Lymph % (Auto) 12.4 % Morgan % (Auto) 7.6 % Eos % (Auto) 0.3 % Baso % (Auto) 0.2 % Neut # (Auto) 10.12 H (1.4-6.5) K/uL Lymph # (Auto) 1.59 (1.2-3.4) K/uL Morgan # (Auto) 0.97 H (0.24-0.82) K/uL Eos # (Auto) 0.04 (0-0.50) K/uL Baso # (Auto) 0.03 (0-0.2) K/uL Immature Gran # (Auto) 0.04 H (0.00-0.02) K/uL Sodium 139 (136-145) mmol/L Potassium 4.0 (3.5-5.1) mmol/L Chloride 103 (98-107) mmol/L Carbon Dioxide 28 (21-32) mmol/L Anion Gap 8 (3-11) BUN 10 (6-23) mg/dl Creatinine 0.58 L (0.6-1.2) mg/dl Est Cr Clr Drug Dosing 104.6 ml/min Est GFR ( Amer) 112.1 ml/min Est GFR (Non-Af Amer) 96.7 ml/min BUN/Creatinine Ratio 17.2 (10-20) Glucose 169 H (70-99(Fasting)) mg/dl POC Glucose (70-99) mg/dl Calcium 8.8 (8.5-10.1) mg/dl Magnesium 1.6 L (1.7-2.4) mg/dl Total Bilirubin (0.2-1.0) mg/dl AST (13-39) U/L ALT (7-52) U/L Alkaline Phosphatase (34-104) U/L Troponin I High Sens (0-14) pg/ml Total Protein (6.0-8.3) gm/dl Albumin (3.4-5.0) gm/dl Globulin (2.5-4.0) gm/dl Albumin/Globulin Ratio (0.9-2) PG Care Time/CCT Total # of Minutes Spent Total Time Spent with Patient: Total time spent is greater than 50% in coordination of care (as documented) at patient's floor/unit and/or counseling patient: Coding Level of Care Code 23216 Subseq Hosp Care Lvl 3 Diagnoses Elevated troponin R77.8 Rapid atrial fibrillation I48.91 Neck pain M54.2 Depression with anxiety F41.8 Acute respiratory failure with hypoxia J96.01 Diabetes mellitus type 2 in obese E11.69; E66.[address] R93.89 NSTEMI (non-ST elevated myocardial infarction) I21.4 Hypomagnesemia E83.42 Mediastinal lymphadenopathy R59.0 Dermatitis L30.9 Chronic lower back pain M54.50; G89.29 Hyperthyroidism E05.90 Neuroenteric cyst Q06.8
[2022-07-21] MEDS: DOXYCYCLINE HYCLATE 100 MG in DEXTROSE 5% 100 ML IV SCH ×2 (11:03→22:50)
[2022-07-21] MEDS: AMIODARONE / D5W 360 MG/200 ML BAG IV SCH ×2 (11:03→22:51)
[2022-07-21] MEDS ORDERED: POTASSIUM CHLORIDE 10 MEQ TABCR PO STA (11:39)
[2022-07-21] MEDS ORDERED: MAGNESIUM SULFATE / D5W 1 GM/100 ML BAG IV ONE (12:00)
[2022-07-21] MEDS: DOCUSATE SODIUM 100 MG CAP PO SCH ×2 (12:39→21:17)
--- NOTE | 2022-07-21 16:15 | Cardiology Progress Note ---
Date of Service July 21, 2022 Assessment & Plan (1) Persistent atrial fibrillation: (2) Anticoagulant long-term use: (3) Dyslipidemia: (4) Elevated troponin: (5) SOB (shortness of breath): Plan ASSESSMENT/PLAN: 1. Atrial fibrillation: Appears persistent. She has been placed on amiodarone by electrophysiology, Dr. Desai. Has been having pauses of 3-4.6 seconds but appears to be asymptomatic. Heart rate reasonably controlled today. Also on diltiazem. Continue anticoagulation for stroke risk reduction. Recommended that she avoid meloxicam while using anticoagulation therapy at home. Monitor TSH and transaminase levels periodically while on amiodarone. Consider cardioversion but apparently was not taking Eliquis b.i.d. at home and may require transesophageal echo to rule out atrial thrombus. Will make NPO after midnight so that if further procedures need to be performed, she is available to do so. Dr. Farr, her primary state historical society director, will resume her care and direct further management. 2. Anticoagulation therapy: Reportedly was taking Eliquis only once daily. She is now taking it twice daily. Monitor CBC and renal function periodically. 3. Elevated troponin: Had described anterior neck pain to hospitalist service prior to presentation, which resolved with improved heart rate control. Elevated troponins suggest myocardial injury, although she did not present with acute coronary syndrome per se. Recommend ischemic evaluation at some point. Fortunately, her presenting neck pain had resolved. Recommend high-intensity statin therapy for concern of underlying CAD given multiple risk factors. LV systolic function is normal. 4. Shortness of breath: She is being seen by pulmonology for emphysema. She describes orthopnea today during our visit. She has edema but otherwise does not appear to be significantly hypervolemic. Will give 1 dose of intravenous Lasix 20 mg to see if it improves her symptoms. Strict I&Os. Daily weights. 5. Dyslipidemia: LDL significantly elevated. Given diabetes and other risk factors with elevated troponins and concern for underlying CAD, recommend high- intensity statin therapy. Will increase atorvastatin. Monitor transaminase levels. 6. Disposition: Dr. Farr will resume her cardiology care tomorrow. Plan of care discussed with Dr. De Souza of the primary hospitalist service. Admission and Anticipated Discharge Date Admission Date: July 19, 2022 Subjective Patient was seen earlier today with her daughter, Clare, at the bedside. She states that her breathing feels funny and that is different but denied shortness of breath. She then at the end of our conversation admitted that she was finding it difficult to breathe when laying supine for her ECG and that this is a new symptom for her. She denies chest pain. She described neck pain. Two other providers she describes an anterior chest discomfort in the 1-2 days leading up to her presentation. For our conversation, she stated it was a posterior neck pain that has since subsided. She denies syncope, near-syncope, palpitations, melena or hematochezia. On monitor, she has been noted to have pauses from 3 to 4.6 seconds but denies any symptoms. Review of systems: As above. Physical Exam Physical Exam: Gen.: No acute distress. Alert. HEENT: Anicteric sclera. Neck: Thick neck. Cardiac: No ventricular heave. Irregularly irregular. Normal S1-S2. No murmurs, rubs, or gallops. Pulmonary: Clear to auscultation bilaterally without wheezes, rales, or rhonchi. Abdomen: Soft, nontender, nondistended, with normoactive bowel sounds. No bruits noted. Extremities: 2+ radial pulses bilaterally. Trace to 1+ bilateral lower extremity edema. No cyanosis. Results & Data ([facility]) Vital Signs (Past 12 Hours) Vital Signs Temp Pulse Pulse Resp BP Pulse Ox O2 Del Method 07/21/22 15:11 36.6 C 88 18 113/77 92 Room Air 07/21/22 08:00 Room Air 07/21/22 08:00 78 07/21/22 11:15 36.5 C 92 H 18 121/81 93 Room Air 07/21/22 07:23 36.6 C 82 19 140/88 92 Room Air Intake & Output 07/19/22 07/20/22 07/21/22 07/22/22 06:59 06:59 06:59 06:59 Intake Total 732.0 / 732.0 2815.167 / 2815.167 885 / 885 Balance 732.0 / 732.0 2815.167 / 2815.167 885 / 885 Weight 211 lb 13.828 oz 213 lb 13.574 oz Laboratory Results Laboratory Results - last 24 hr 07/20/22 07/20/2207/20/22 16:10 20:00 20:48 WBC RBC Hgb Hct MCV MCH MCHC RDW Std Deviation RDW Coeff of Rasheed Plt Count MPV Immature Gran % (Auto) Neut % (Auto) Lymph % (Auto) [place] % (Auto) Eos % (Auto) Baso % (Auto) Neut # (Auto) Lymph # (Auto) [place] # (Auto) Eos # (Auto) Baso # (Auto) Immature Gran # (Auto) Sodium Potassium Chloride Carbon Dioxide Anion Gap BUN Creatinine Est Cr Clr Drug Dosing Est GFR ( Amer) Est GFR (Non-Af Amer) BUN/Creatinine Ratio Glucose POC Glucose 203 H 190 H Calcium Magnesium Total Bilirubin AST ALT Alkaline Phosphatase Troponin I High Sens 2494.9 H* Total Protein Albumin Globulin Albumin/Globulin Ratio 07/21/22 07/21/22 07/21/22 05:17 05:17 07:11 WBC 12.76 H RBC 5.01 Hgb 15.3 Hct 46.0 H MCV 91.8 MCH 30.5 MCHC 33.3 RDW Std Deviation 46.3 RDW Coeff of Rasheed 13.7 Plt Count 232 MPV 11.4 Immature Gran % (Auto) 0.5 Neut % (Auto) 75.1 Lymph % (Auto) 15.4 [place] % (Auto) 8.1 Eos % (Auto) 0.5 Baso % (Auto) 0.4 Neut # (Auto) 9.58 H Lymph # (Auto) 1.96 [place] # (Auto) 1.03 H Eos # (Auto) 0.07 Baso # (Auto) 0.05 Immature Gran # (Auto) 0.07 H Sodium 133 L Potassium 3.9 Chloride 101 Carbon Dioxide 28 Anion Gap 4 BUN 15 Creatinine 0.79 Est Cr Clr Drug Dosing 76.8 Est GFR ( Amer) 91.0 Est GFR (Non-Af Amer) 78.6 BUN/Creatinine Ratio 19.0 Glucose 199 H POC Glucose 168 H Calcium 9.0 Magnesium 1.9 Total Bilirubin 0.4 AST 23 ALT 14 Alkaline Phosphatase 64 Troponin I High Sens Total Protein 6.8 Albumin 3.7 Globulin 3.1 Albumin/Globulin Ratio 1.2 07/21/22 11:04 WBC RBC Hgb Hct MCV MCH MCHC RDW Std Deviation RDW Coeff of Rasheed Plt Count MPV Immature Gran % (Auto) Neut % (Auto) Lymph % (Auto) [place] % (Auto) Eos % (Auto) Baso % (Auto) Neut # (Auto) Lymph # (Auto) [place] # (Auto) Eos # (Auto) Baso # (Auto) Immature Gran # (Auto) Sodium Potassium Chloride Carbon Dioxide Anion Gap BUN Creatinine Est Cr Clr Drug Dosing Est GFR ( Amer) Est GFR (Non-Af Amer) BUN/Creatinine Ratio Glucose POC Glucose 198 H Calcium Magnesium Total Bilirubin AST ALT Alkaline Phosphatase Troponin I High Sens Total Protein Albumin Globulin Albumin/Globulin Ratio Diagnostic Findings Telemetry personally reviewed: Atrial fibrillation. Pauses of 3-4.6 seconds. Echo 07/20/2022: Normal LV size, wall motion, systolic function. EF 60-65%. No significant valvular abnormalities. Normal RVSP. AFib. ECG personally reviewed 07/21/2022 at 1:36 p.m.: AFib 79 beats per minute. Nonspecific ST/T-wave abnormality. Medications Administered Current Inpatient Medications Apixaban (Apixaban 5 Mg Tablet) 5 mg PO BID ELIAN Stop: 08/19/22 08:59 Last Admin: 07/21/22 08:08 Dose: 5 mg Aspirin (Aspirin 81 Mg Ectab) 81 mg PO DAILY ELIAN Stop: 08/19/22 08:59 Last Admin: 07/21/22 08:08 Dose: 81 mg Atorvastatin Calcium (Atorvastatin 20 Mg Tab) 20 mg PO HS ELIAN Stop: 08/19/22 20:59 Last Admin: 07/20/22 20:15 Dose: 20 mg Diltiazem HCl (Diltiazem Hcl 240 Mg Capcr) 240 mg PO QAM ELIAN Stop: 08/19/22 10:14 Last Admin: 07/21/22 08:08 Dose: 240 mg Docusate Sodium (Docusate Sodium 100 Mg Cap) 100 mg PO BID ELIAN Stop: 08/20/22 10:44 Last Admin: 07/21/22 12:39 Dose: 100 mg Glucagon (Glucagon For Inj 1 Mg Vial) 1 mg SQ UD PRN; Protocol PRN Reason: Hypoglycemia Protocol Stop: 08/18/22 23:29 Glucose (Glucose 40% Gel 15 Gm Tube) 15 - 30 gm PO UD PRN; Protocol PRN Reason: Hypoglycemia Protocol Stop: 08/18/22 23:29 Glucose (Glucose 10 Tab/Tube) 4 - 8 tab PO UD PRN; Protocol PRN Reason: Hypoglycemia Treatment Stop: 08/18/22 23:29 Doxycycline Hyclate 100 mg/ (Dextrose) 110 mls @ 50 mls/hr IV Q12H ELIAN Stop: 07/26/22 22:14 Last Infusion: 07/21/22 13:17 Dose: Infused Amiodarone HCl/Dextrose (Nexterone / D5w) 360 mg in 200 mls @ 16.667 mls/hr IV .Q12H ELIAN Stop: 08/19/22 21:24 Last Admin: 07/21/22 11:03 Dose: 0.5 mg/min, 16.7 mls/hr Lorazepam 1 mg/ Syringe 1 mls @ 2 mls/min IV Q8H PRN PRN Reason: Anxiety and pre-MRI Stop: 08/19/22 16:14 Last Admin: 07/20/22 16:21 Dose: 2 mls/min Insulin Aspart (Insulin Aspart Per Unit) 0 units SC ACHS ELIAN Stop: 08/19/22 07:29 Last Admin: 07/21/22 12:39 Dose: Not Given Methimazole (Methimazole 5 Mg Tablet) 10 mg PO DAILY ELIAN Stop: 08/19/22 08:59 Last Admin: 07/21/22 08:08 Dose: 10 mg Miscellaneous (Carbohydrates For Hypoglycemia ) 15 - 30 gm PO UD PRN PRN Reason: Hypoglycemia Protocol Stop: 08/18/22 23:29 Pantoprazole Sodium (Pantoprazole 40 Mg Tab) 40 mg PO DAILY ELIAN Stop: 08/19/22 12:29 Last Admin: 07/21/22 08:08 Dose: 40 mg Sertraline HCl (Sertraline Hcl 50 Mg Tablet) 25 mg PO HS ELIAN Stop: 08/20/22 20:59 Sitagliptin Phosphate (Sitagliptin Phosphate 100 Mg Tab) 100 mg PO DAILY ELIAN Stop: 08/19/22 12:14 Last Admin: 07/21/22 08:08 Dose: 100 mg Tramadol HCl (Tramadol Hcl 50 Mg Tablet) 50 mg PO Q4H PRN PRN Reason: Pain Stop: 08/19/22 12:01 Last Admin: 07/21/22 09:47 Dose: 50 mg Umeclidinium [place] (Umeclidinium [place] 62.5mcg/Blister 7 Puffs/Inhaler) 1 puffs INH DAILY ELIAN Stop: 08/19/22 13:44 Last Admin: 07/21/22 08:09 Dose: 1 puffs Zolpidem Tartrate (Zolpidem Tartrate 5 Mg Tab) 5 mg PO HS PRN PRN Reason: Sleep Stop: 08/18/22 23:29 Last Admin: 07/20/22 21:09 Dose: 5 mg PG Care Time/CCT Total # of Minutes Spent Total Time Spent with Patient: Total time spent is greater than 50% in coordination of care (as documented) at patient's floor/unit and/or counseling patient: Coding Level of Care Code 29727 Subseq Hosp Care Lvl 3 Diagnoses Persistent atrial fibrillation I48.19 Anticoagulant long-term use Z79.01 Dyslipidemia E78.5 Elevated troponin R77.8 SOB (shortness of breath) R06.02
[2022-07-21] MEDS ORDERED: FUROSEMIDE INJ 20 MG/2 ML VIAL IV ONE (16:45)
[2022-07-21 17:41] LABS: Anion Gap 7.2 (3-11)
[2022-07-21] MEDS: ATORVASTATIN 40 MG TAB PO SCH (21:16)
[2022-07-21] MEDS: SERTRALINE HCL 50 MG TABLET PO SCH (21:18)
[2022-07-21] MEDS: ZOLPIDEM TARTRATE 5 MG TAB PO PRN (22:51)
--- NOTE | 2022-07-22 05:58 | Electrocardiogram Report ---
Test Reason : Blood Pressure : / mmHG Vent. Rate : 079 BPM Atrial Rate : 054 BPM P-R Int : 000 ms QRS Dur : 086 ms QT Int : 404 ms P-R-T Axes : 000 080 111 degrees QTc Int : 463 ms Atrial fibrillation Nonspecific ST and T wave abnormality Abnormal ECG When compared with ECG of 20-JUL-2022 10:35, No significant change Confirmed by Reid Hernandez ([id number]) on 07/22/2022 5:58:23 AM Referred By: REFERRED SELF Confirmed By:Reid Hernandez
[2022-07-22 07:34] LABS: Basophils # (auto) 0.04 K/uL (0-0.2); Basophils % (auto) 0.4 %; Eosinophils # (auto) 0.17 K/uL (0-0.50); Eosinophils % (auto) 1.5 %; Hematocrit (blood only) 47.4 % (34.1-44.9); Hemoglobin 15.7 g/dl (12.0-16.0); Immature Granulocytes # (auto) 0.04 K/uL (0.00-0.02); Immature Granulocytes % (auto) 0.4 %; Lymphocytes # (auto) 2.27 K/uL (1.2-3.4); Lymphocytes % (auto) 20.5 %; Mean Corpuscular Hemoglobin 30.6 pg (25.0-34.0); Mean Corpuscular Hgb Conc 33.1 g/dL (32.0-36.0); Mean Corpuscular Volume 92.4 fL (80.0-100.0); Mean Platelet Volume 11.6 fL (9.4-12.3); Monocytes # (auto) 0.94 K/uL (0.24-0.82); Monocytes % (auto) 8.5 %; Neutrophils # (auto) 7.62 K/uL (1.4-6.5); Neutrophils % (auto) 68.7 %; Platelet Count 264 K/uL (130-400); RDW Coefficient of Variation 13.7 % (11.5-14.5); RDW Standard Deviation 46.7 fL (36.4-46.3); Red Blood Count 5.13 M/uL (3.93-5.22); White Blood Count 11.08 K/ul (4.8-10.8)
[2022-07-22] MEDS: INSULIN ASPART PER UNIT SC SCH ×4 (07:51→20:12)
[2022-07-22 08:05] LABS: BUN Creatinine Ratio 25.8 (10-20); Calcium 9.1 mg/dl (8.5-10.1); Creatinine Clr Calc Pharmacy 98.3 ml/min; Est GFR (African American) 109.7 ml/min; Est GFR (Non-African American) 94.6 ml/min; Magnesium 1.8 mg/dl (1.7-2.4); Potassium 3.8 mmol/L (3.5-5.1); Troponin I High Sensitivity 1508.8 pg/ml (0-14)
[2022-07-22] MEDS ORDERED: MAGNESIUM SULFATE / D5W 1 GM/100 ML BAG IV ONE (10:24)
[2022-07-22] MEDS: DOXYCYCLINE HYCLATE 100 MG in DEXTROSE 5% 100 ML IV SCH ×2 (10:50→22:13)
[2022-07-22] MEDS: AMIODARONE / D5W 360 MG/200 ML BAG IV SCH ×2 (10:51→22:12)
[2022-07-22] MEDS: UMECLIDINIUM BROMIDE 62.5MCG/BLISTER 7 PUFFS/INHALER INH SCH (12:06)
[2022-07-22] MEDS: APIXABAN 5 MG TABLET PO SCH ×2 (12:07→20:05)
[2022-07-22] MEDS: dilTIAZem HCL 240 MG CAPCR PO SCH (12:07)
[2022-07-22] MEDS: DOCUSATE SODIUM 100 MG CAP PO SCH ×2 (12:07→20:10)
[2022-07-22] MEDS: SITagliptin PHOSPHATE 100 MG TAB PO SCH (12:07)
[2022-07-22] MEDS: methIMAzole 5 MG TABLET PO SCH (12:07)
[2022-07-22] MEDS: ASPIRIN 81 MG ECTAB PO SCH (12:07)
--- NOTE | 2022-07-22 12:07 | Cardiology Progress Note ---
Date of Service July 22, 2022 Assessment & Plan (1) Persistent atrial fibrillation: Plan: -ventricular response approximately 100 beats per minute. -remains on amiodarone drip. -discussed the addition metoprolol tartrate [address] De Souza. -asymptomatic, will therefore hold on electrical cardioversion. -continue Eliquis. (2) Dyslipidemia: Plan: -atorvastatin increased to 80 mg daily. (3) Elevated troponin: Plan: -troponin peaked at 2907. -symptoms on presentation were concerning for myocardial ischemia. -have suggested a cardiac catheterization, however, patient refuses. -metoprolol will be added to her medical regimen. -continue aspirin. Admission and Anticipated Discharge Date Admission Date: July 19, 2022 Subjective The patient is resting comfortably at the bedside without complaints of chest pain, neck pain, shortness of breath, or palpitations. We have discussed need for cardiac catheterization, however, the patient refuses. Physical Exam Physical Exam: In general is well-developed well-nourished white female no acute distress. HEENT exam is negative. Neck is supple with full carotid upstrokes. There are no carotid bruits. Jugular is pressure is flat degrees. Cardiovascular exam reveals irregular irregular rhythm with distant heart sounds. No obvious murmurs. Lungs are clear without rales, rhonchi or wheezes. Abdomen is soft without bruits. Extremities reveal intact radial artery pulses bilaterally. Trace pretibial edema is noted. Results & Data ([facility]) Vital Signs (Past 12 Hours) Vital Signs Temp Pulse Resp BP Pulse Ox 07/22/22 03:27 37 C 68 18 130/64 94 Diagnostic Findings campus monitor notes atrial fibrillation with a ventricular response of 90- 105 beats per minute. Several pauses of approximately 2 seconds were noted. PG Care Time/CCT Total # of Minutes Spent Total Time Spent with Patient: Total time spent is greater than 50% in coordination of care (as documented) at patient's floor/unit and/or counseling patient: Coding Level of Care Code 57384 Subseq Hosp Care Lvl 3 Diagnoses Persistent atrial fibrillation I48.19 Dyslipidemia E78.5 Elevated troponin R77.8
[2022-07-22] MEDS: PANTOprazole 40 MG TAB PO SCH (12:08)
--- NOTE | 2022-07-22 12:23 | Orthopedic Consultation ---
Date of Consultation July 22, 2022 Assessment & Plan (1) Neuroenteric cyst: Did the opportunity review both the cervical and thoracic MRIs. She has evidence of a neuroenteric cyst. This appears benign. I do not appreciate any erosion into the thoracic vertebral body or surrounding tissues. By no means professed to be an expert in this diagnosis. At minimum I would suggest she have a follow-up MRI in the next 3 to 6 months to ensure it is not changed in scope or scale. At this point there is no indication for any surgical invention on my part. History of Present Illness Reason for Consultation: Cyst along the thoracic spine Attending Physician: Crystal De Souza MD History of Present Illness This is a 67-year-old female who was admitted to the hospital significant cardiac issues and atrial fibrillation. On imaging was discovered she had a cyst in the thoracic region along the midportion of the spine posterior to the aorta. At this point she complains of no significant thoracic back pain or neck symptoms. She has no arm pain. She complains of some intermittent low back pain. She denies any neurologic changes. Allergies Allergy/AdvReac Type Severity Reaction Status Date / Time Cipro Allergy Mild SHORTNESS Verified 06/30/16 21:23 OF BREATH ciprofloxacin [Cipro] Allergy Mild SHORTNESS Verified 11/10/21 14:55 OF BREATH miconazole Allergy Mild Rash Verified 06/30/16 21:23 empagliflozin Allergy Unknown Unknown Verified 11/10/21 14:55 [From Jardiance] metformin Allergy Unknown Unknown Verified 11/10/21 14:56 Home Medications Medication Instructions Recorded Confirmed Type ASPIRIN (ASPIRIN EC) 81 mg PO DAILY ##0 06/30/16 History apixaban 5 mg tablet (Eliquis) 5 mg PO BID 07/20/22 07/20/22 History lisinopril 2.5 mg tablet 2.5 mg PO DAILY 07/20/22 07/20/22 History meloxicam 15 mg tablet 15 mg PO DAILY 07/20/22 07/20/22 History methimazole 10 mg tablet 10 mg PO DAILY 07/20/22 07/20/22 History metoprolol succinate 25 mg 25 mg PO BID 07/20/22 07/20/22 History tablet,extended release 24 hr omeprazole 20 mg capsule,delayed 20 mg PO DAILY 07/20/22 07/20/22 History release sitagliptin 100 mg tablet (Januvia) 100 mg PO DAILY 07/20/22 07/20/22 History tramadol 50 mg tablet 50 mg PO Q4H PRN Pain 07/20/22 07/20/22 History Patient History Medical History (Updated 07/21/22 @ 16:06 by Reid Hernandez MD) Atrial fibrillation Chronic lower back pain Degenerative arthritis of cervical spine Depression with anxiety Diabetes mellitus type 2 in obese Hypertension Hyperthyroidism Surgical History No pertinent past surgical history Social History Smoking Status: Former smoker Hx Alcohol Use: No Hx Substance Use: No Preferred Language: Spanish Communication Ability: Effective Retail Advertising Sales Manager Required: No Beliefs That Will Affect Care: None Current Living Situation: Significant Other Feels Safe at Home: Yes Assistive Devices: Glasses Physical Exam Physical Exam: On exam patient is sitting up at the bedside. Is neurologically intact. She is cooperative throughout her discussion and exam. Results & Data ([facility]) Vital Signs (Past 12 Hours) Vital Signs Temp Pulse Resp BP Pulse Ox 07/22/22 03:27 37 C 68 18 130/64 94
[2022-07-22] MEDS: POTASSIUM CHLORIDE / WTR 10 MEQ/100 ML PLCT IV SCH ×2 (14:17→17:17)
--- NOTE | 2022-07-22 19:21 | Hospitalist Progress Note ---
Date of Service July 22, 2022 Assessment & Plan (1) Elevated troponin: Plan: 67 y/o F Hx chronic back pain, HTN, HLD, DM II, hyperthyroid, chronic AF. presents with BL frontal neck pain. Upon auscultation in the ER, a rapid HR was noted. The pt was placed on a monitor which confirmed rapid AF with a rate of 180. She has not c/o CP, SOB, lightheadedness. Initial labs were notable for a trop of 745. TSH was WNL. Rapid AF is confirmed on EKG. It is also noted that she has some erythema and multiple small blisters on her distal lower extrems (L > R). She was apparently placed on antibiotics for this earlier in the week. CT angiogram chest negative for PE No chest pain but suspect anterior neck pain was her anginal equivalent-this is resolved with improvement in heart rate -Here with NSTEMI but could be myocardial demand ischemia secondary to rapid atrial fibrillation. Certainly could have underlying CAD given risk factors for such. ECG with marked ST depression in lateral leads when in rapid A. fib which resolved on subsequent ECG with controlled rates -Troponin has peaked at 2900 -Echocardiogram with preserved LV function and no wall motion abnormalities -Continue to work to control atrial fibrillation rates as below -Needs ischemic evaluation-recommend cardiac catheterization-patient is skeptical about having this done, but did not discuss it at length with her and her daughter on the phone on 07/22. She will consider it and make a decision about it in the morning -Keep her n.p.o. after midnight just in case she decides to go through with cardiac catheterization-I have notified Dr. Farr about this plan -Continue aspirin, increase atorvastatin to high intensity dosing, and add back metoprolol tartrate 25 Mg p.o. twice daily which was initially held on admission in favor of diltiazem for rate control (2) Rapid atrial fibrillation: Plan: Admitted and initially placed on a Diltiazem drip-rates were better controlled- converted to diltiazem to 240 Mg p.o. once daily by cardiology -Cardiology started IV amiodarone to attempt chemical cardioversion in the setting of likely underlying CAD as above-having multiple pauses that are 3-4 seconds long that cardiology feels may be attempts at spontaneous cardioversion Echocardiogram with preserved LV function Patient has been reportedly taking Eliquis 5 mg once daily at home which is inappropriate dosing-continue Eliquis 5 Mg p.o. twice daily Rates remain not optimal at this point at 100-110s -Add metoprolol 25 Mg p.o. twice daily to improve rate control -Continue amiodarone drip in an attempt for chemical cardioversion -Cardiology does not feel the need to do a JOHN at this time for cardioversion -Continue to monitor on telemetry -Keep electrolytes replete-replace magnesium and KCl po again today to keep >2.0 and 4.0, respectively (3) Neck pain: Plan: Anterior neck pain seems to have resolved with resolution of rapid atrial fibrillation-anginal equivalent Still with some posterior neck pain -Checked MRI cervical spine-DJD, spine stenosis -consulted Ortho Spine for cyst as below (4) Depression with anxiety: Plan: admits to a lot of "stress" and anxiety, feels depressed most days of the week, ongoing for a long time denies SI requesting medication as was on something daily in the past (can't recall which drug) that really helped her feel better no h/o goldie, no FH of bipolar d/o or schizophrenia -started Zoloft 25mg po hs x 7 days then increase to 50mg hs on 07/28 -advised close f/u with PCP (5) Acute respiratory failure with hypoxia: Plan: Could be secondary to underlying emphysema in the setting of likely underlying CAD and rapid atrial fibrillation With some chronic changes on CT of the chest Seen by pulmonology due to mediastinal lymphadenopathy and placed on Incruse inhaler for suspected COPD Cardiology given 1 dose of IV Lasix on 07/21 for suspected volume overload Now weaned off O2 May need two-step walk test prior to discharge -Incruse inhaler as per PULM -needs PFTs outpt (6) Diabetes mellitus type 2 in obese: Plan: does not take DM meds but allergies are reported to Metformin and Jardiance. Patient is refusing insulin here Hemoglobin A1c elevated at 8.1% -cont home Januvia (7) Abnormal chest CT: Plan: CT angiogram of the chest performed for shortness of breath and noted to have heterogeneity of the thyroid. 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 Appreciate pulmonology consultation-recommends MRI of the chest and thoracic spine as this indeterminant circumscribed structure might be coming from the spine MRI shows 5 cm neuroenteric cyst likely developmental--> consulted Otrho Spine for further eval--> recommends repeat MRI in 3 to 6 months but no surgical intervention needed at this time -Continue doxycycline for both possible cellulitis and bronchitis in the setting of COPD -Started umeclidinium inhaler 1 puff once daily and needs follow-up with pulmonology as an outpatient for mediastinal lymphadenopathy and COPD (8) NSTEMI (non-ST elevated myocardial infarction): Plan: As above (9) Hypomagnesemia: Plan: as above (10) Mediastinal lymphadenopathy: Plan: As above Follow-up with pulmonology as an outpatient (11) Dermatitis: Plan: Mild cellulitis is possible. cause of small blisters is not clear as they are concentrated on her LEs. Placed on Doxy and cellulitis is much improved Still with papules and chronic dermatitis on legs Recommend follow-up with dermatology as an outpatient (12) Chronic lower back pain: Plan: - cont Tramadol PRN (13) Hyperthyroidism: Plan: TSH WNL - cont methimazole (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: Plan: as above, consult Ortho SPine appreciated Plan Disposition-continued stay on PCU, patient deciding about whether or not to have cardiac catheterization on 07/23. Would continue hospitalization until atrial fibrillation is either spontaneously converted to sinus rhythm or else with improved rate control. Also, if has cardiac catheterization and has intervention, would keep at least until Friday of this week Admission and Anticipated Discharge Date Admission Date: July 19, 2022 Subjective Patient skeptical about having cardiac catheterization done. I discussed her plan and diagnoses at length with both her and her daughter on speaker phone for over 30 minutes. She denies chest pains or shortness of breath. Reports ongoing chronic lower back pain. I discussed her care with cardiology. Telemetry atrial fibrillation with rates in the 100s to 1 teens. Review of Systems Review of Systems: All systems reviewed & are unremarkable except as noted in HPI & below Physical Exam Constitutional: WD/WN, vitals as above Eyes: + anicteric sclerae Neck: trachea midline, no thyromegaly Respiratory: normal respiratory effort, lungs clear to auscultation Cardiovascular: Rate/Rhythm: + tachycardic (mild) and + irregularly irregular Heart Sounds: no murmur Extremities: no edema Chest (Breasts): Chest: normal inspection of chest Gastrointestinal (Abdomen): normal bowel sounds, soft, nontender, no hepatosplenomegaly Musculoskeletal: Extremities: no cyanosis and no clubbing Skin: + rash (Mild erythema with chafing skin, scabs, on legs left greater than right) and + lesion (Multiple 4 to 5 mm pink papules on legs surrounding dermatitis); no erythema Neurologic: moves all extremities and awake; no focal motor deficits Psychiatric: Orientation: alert, oriented x 3 and cooperative Eye Contact: good eye contact Speech: normal rate/rhythm/volume of speech Affect: + depressed affect Mood: + depressed mood and + anxious mood Lymphatic: no lymphedema Results & Data Results & Data ([facility]) Vital Signs (Past 12 Hours) Vital Signs Pulse 07/22/22 08:00 89 Laboratory Results 07/22/22 07/22/22 07/22/22 Range/Units 20:09 16:28 11:18 WBC (4.8-10.8) K/ul RBC (3.93-5.22) M/uL Hgb (12.0-16.0) g/dl Hct (34.1-44.9) % MCV (80.0-100.0) fL MCH (25.0-34.0) pg MCHC (32.0-36.0) g/dL RDW Std Deviation (36.4-46.3) fL RDW Coeff of Rasheed (11.5-14.5) % Plt Count (130-400) K/uL MPV (9.4-12.3) fL Immature Gran % (Auto) % Neut % (Auto) % Lymph % (Auto) % [place] % (Auto) % Eos % (Auto) % Baso % (Auto) % Neut # (Auto) (1.4-6.5) K/uL Lymph # (Auto) (1.2-3.4) K/uL [place] # (Auto) (0.24-0.82) K/uL Eos # (Auto) (0-0.50) K/uL Baso # (Auto) (0-0.2) K/uL Immature Gran # (Auto) (0.00-0.02) K/uL Sodium (136-145) mmol/L Potassium (3.5-5.1) mmol/L Chloride (98-107) mmol/L Carbon Dioxide (21-32) mmol/L Anion Gap (3-11) BUN (6-23) mg/dl Creatinine (0.6-1.2) mg/dl Est Cr Clr Drug Dosing ml/min Est GFR ( Amer) ml/min Est GFR (Non-Af Amer) ml/min BUN/Creatinine Ratio (10-20) Glucose (70-99(Fasting)) mg/dl POC Glucose 178 H 149 H 203 H (70-99) mg/dl Calcium (8.5-10.1) mg/dl Magnesium (1.7-2.4) mg/dl Troponin I High Sens (0-14) pg/ml 07/22/22 07/22/22 07/22/22 Range/Units 07:18 06:00 06:00 WBC 11.08 H (4.8-10.8) K/ul RBC 5.13 (3.93-5.22) M/uL Hgb 15.7 (12.0-16.0) g/dl Hct 47.4 H (34.1-44.9) % MCV 92.4 (80.0-100.0) fL MCH 30.6 (25.0-34.0) pg MCHC 33.1 (32.0-36.0) g/dL RDW Std Deviation 46.7 H (36.4-46.3) fL RDW Coeff of Rasheed 13.7 (11.5-14.5) % Plt Count 264 (130-400) K/uL MPV 11.6 (9.4-12.3) fL Immature Gran % (Auto) 0.4 % Neut % (Auto) 68.7 % Lymph % (Auto) 20.5 % [place] % (Auto) 8.5 % Eos % (Auto) 1.5 % Baso % (Auto) 0.4 % Neut # (Auto) 7.62 H (1.4-6.5) K/uL Lymph # (Auto) 2.27 (1.2-3.4) K/uL [place] # (Auto) 0.94 H (0.24-0.82) K/uL Eos # (Auto) 0.17 (0-0.50) K/uL Baso # (Auto) 0.04 (0-0.2) K/uL Immature Gran # (Auto) 0.04 H (0.00-0.02) K/uL Sodium 139 (136-145) mmol/L Potassium 3.8 (3.5-5.1) mmol/L Chloride 103 (98-107) mmol/L Carbon Dioxide 27 (21-32) mmol/L Anion Gap 9 (3-11) BUN 16 (6-23) mg/dl Creatinine 0.62 (0.6-1.2) mg/dl Est Cr Clr Drug Dosing 98.3 ml/min Est GFR ( Amer) 109.7 ml/min Est GFR (Non-Af Amer) 94.6 ml/min BUN/Creatinine Ratio 25.8 H (10-20) Glucose 194 H (70-99(Fasting)) mg/dl POC Glucose 172 H (70-99) mg/dl Calcium 9.1 (8.5-10.1) mg/dl Magnesium 1.8 (1.7-2.4) mg/dl Troponin I High Sens 1508.8 H* D (0-14) pg/ml PG Care Time/CCT Total # of Minutes Spent Total Time Spent with Patient: Total time spent is greater than 50% in coordination of care (as documented) at patient's floor/unit and/or counseling patient: Coding Level of Care Code 17611 Subseq Hosp Care Lvl 3 Diagnoses Elevated troponin R77.8 Rapid atrial fibrillation I48.91 Neck pain M54.2 Depression with anxiety F41.8 Acute respiratory failure with hypoxia J96.01 Diabetes mellitus type 2 in obese E11.69; E66.[address] R93.89 NSTEMI (non-ST elevated myocardial infarction) I21.4 Hypomagnesemia E83.42 Mediastinal lymphadenopathy R59.0 Dermatitis L30.9 Chronic lower back pain M54.50; G89.29 Hyperthyroidism E05.90 Neuroenteric cyst Q06.8
[2022-07-22] MEDS: METOPROLOL TARTRATE 25 MG TAB PO SCH (19:25)
[2022-07-22] MEDS: SERTRALINE HCL 50 MG TABLET PO SCH (20:05)
[2022-07-22] MEDS: ATORVASTATIN 40 MG TAB PO SCH (20:06)
[2022-07-22] MEDS: traMADol HCL 50 MG TABLET PO PRN (20:08)
[2022-07-22] MEDS: ZOLPIDEM TARTRATE 5 MG TAB PO PRN (22:13)
[2022-07-23] MEDS: traMADol HCL 50 MG TABLET PO PRN ×3 (05:16→21:21)
[2022-07-23 06:39] LABS: Basophils # (auto) 0.03 K/uL (0-0.2); Basophils % (auto) 0.2 %; Eosinophils # (auto) 0.19 K/uL (0-0.50); Eosinophils % (auto) 1.5 %; Hematocrit (blood only) 44.5 % (34.1-44.9); Hemoglobin 14.8 g/dl (12.0-16.0); Immature Granulocytes # (auto) 0.04 K/uL (0.00-0.02); Immature Granulocytes % (auto) 0.3 %; Lymphocytes # (auto) 2.55 K/uL (1.2-3.4); Mean Corpuscular Hemoglobin 30.2 pg (25.0-34.0); Mean Corpuscular Hgb Conc 33.3 g/dL (32.0-36.0); Mean Corpuscular Volume 90.8 fL (80.0-100.0); Mean Platelet Volume 11.4 fL (9.4-12.3); Monocytes # (auto) 1.12 K/uL (0.24-0.82); Monocytes % (auto) 8.8 %; Neutrophils # (auto) 8.79 K/uL (1.4-6.5); Neutrophils % (auto) 69.2 %; Platelet Count 281 K/uL (130-400); RDW Coefficient of Variation 13.7 % (11.5-14.5); RDW Standard Deviation 46.2 fL (36.4-46.3); White Blood Count 12.72 K/ul (4.8-10.8)
[2022-07-23 07:06] LABS: Calcium 9.1 mg/dl (8.5-10.1); Creatinine Clr Calc Pharmacy 93.7 ml/min; Est GFR (African American) 110.3 ml/min; Est GFR (Non-African American) 95.1 ml/min; Magnesium 1.8 mg/dl (1.7-2.4); Potassium 4.1 mmol/L (3.5-5.1)
[2022-07-23] MEDS: INSULIN ASPART PER UNIT SC SCH ×4 (08:32→20:43)
[2022-07-23] MEDS: LANTUS PER UNIT CHARGE SQ SCH (10:33)
[2022-07-23] MEDS: APIXABAN 5 MG TABLET PO SCH ×2 (10:43→20:21)
[2022-07-23] MEDS: ASPIRIN 81 MG ECTAB PO SCH (10:44)
[2022-07-23] MEDS: methIMAzole 5 MG TABLET PO SCH (10:47)
[2022-07-23] MEDS: DOCUSATE SODIUM 100 MG CAP PO SCH ×2 (10:47→20:23)
[2022-07-23] MEDS: PANTOprazole 40 MG TAB PO SCH (10:48)
[2022-07-23] MEDS: SITagliptin PHOSPHATE 100 MG TAB PO SCH (10:48)
[2022-07-23] MEDS: UMECLIDINIUM BROMIDE 62.5MCG/BLISTER 7 PUFFS/INHALER INH SCH (10:49)
[2022-07-23] MEDS: dilTIAZem HCL 240 MG CAPCR PO SCH (10:50)
[2022-07-23] MEDS: METOPROLOL TARTRATE 25 MG TAB PO SCH (10:50)
[2022-07-23] MEDS: DOXYCYCLINE HYCLATE 100 MG in DEXTROSE 5% 100 ML IV SCH ×2 (11:49→21:21)
[2022-07-23] MEDS: AMIODARONE / D5W 360 MG/200 ML BAG IV SCH (11:50)
--- NOTE | 2022-07-23 11:57 | Cardiology Progress Note ---
Date of Service July 23, 2022 Assessment & Plan (1) Persistent atrial fibrillation: Plan: -converted to sinus rhythm on intravenous amiodarone. -now demonstrates sinus bradycardia and an ectopic atrial bradycardia. -would discontinue diltiazem. -would place metoprolol tartrate on hold until her bradycardia resolves. -would convert to oral amiodarone at 200 mg daily. -continue Eliquis. (2) Elevated troponin: Plan: -troponin peaked at 2907. -symptoms on presentation were concerning for myocardial ischemia. -patient continues to refuse a cardiac catheterization. -continue metoprolol and aspirin. (3) Dyslipidemia: Plan: -atorvastatin increased to 80 mg daily. Admission and Anticipated Discharge Date Admission Date: July 19, 2022 Subjective The patient is resting comfortably at the bedside without complaints of chest pain, dyspnea, or palpitations. We have again discussed importance of a cardiac catheterization. Her daughter was present via speaker phone. Physical Exam Physical Exam: In general is well-developed well-nourished white female no acute distress. HEENT exam is negative. Neck is supple with full carotid upstrokes. There are no carotid bruits. No JVD. Cardiovascular exam reveals irregular irregular rhythm with distant heart sounds. No obvious murmurs. Lungs are clear without rales, rhonchi or wheezes. Abdomen is soft without bruits. Extremities reveal intact radial artery pulses bilaterally. Trace pretibial edema is noted. Results & Data ([facility]) Vital Signs (Past 12 Hours) Vital Signs Temp Pulse Resp BP BP Pulse Ox O2 Del Method 07/23/22 11:00 36.6 C 54 L 16 169/77 H 93 Room Air 07/23/22 07:00 36.7 C 52 L 16 130/73 92 Room Air 07/23/22 02:51 37.0 C 47 L 18 122/74 91 Room Air Diagnostic Findings The patient converted to sinus rhythm at approximately 2:30 a.m.. Demonstrates sinus bradycardia and an atopic atrial bradycardia. PG Care Time/CCT Total # of Minutes Spent Total Time Spent with Patient: Total time spent is greater than 50% in coordination of care (as documented) at patient's floor/unit and/or counseling patient: Coding Level of Care Code 15449 Subseq Hosp Care Lvl 3 Diagnoses Persistent atrial fibrillation I48.19 Elevated troponin R77.8 Dyslipidemia E78.5
[2022-07-23] MEDS: SERTRALINE HCL 50 MG TABLET PO SCH (20:21)
[2022-07-23] MEDS: ATORVASTATIN 40 MG TAB PO SCH (20:22)
--- NOTE | 2022-07-23 20:32 | Hospitalist Progress Note ---
Date of Service July 23, 2022 Assessment & Plan (1) Rapid atrial fibrillation: Plan: Converted overnight to NSR. Now with sinus bradycardia. Can stop amiodarone tonight and convert to PO amiodarone 200mg daily tomorrow. Stop diltiazem. Hold metoprolol. Cont eliquis 5mg BID. Echocardiogram with preserved LV function. Recent k/mag wnl. Recent TSH wnl. (2) Elevated troponin: Plan: Either 2nd to myocardial demand ischemia in setting of #1 vs ACS. Peak HS troponin 2900 and trended down. Heavy concern that the presenting anterior neck pain was her anginal equivalent. Echocardiogram with preserved LV function and no wall motion abnormalities. Patient finally agreeable to heart cath. NPO after MN tonight with cath tomorrow by Dr Tolbert. Continue aspirin Continue atorvastatin Resume metoprolol tartrate 25mg BID - probably at discharge (3) Neck pain: Plan: Anterior neck pain - resolved with resolution of rapid atrial fibrillation This pain may have been anginal equivalent MRI cervical spine - DJD noted (4) Depression with anxiety: Plan: Patient requested medication as was on something daily in the past Started Zoloft 25mg po hs x 7 days then increase to 50mg hs on 07/28 Could consider low-dose buspar for anxiety as well Will need PCP f/u (5) Acute respiratory failure with hypoxia: Plan: Initially with RRs in the high 20s and O2 sats about 88% on hospital day #1 Perhaps 2nd to #1 Perhaps primary pulmonary based - acute bronchitis (or COPD with exacerbation) based on chest CT findings Seen by pulmonology due to mediastinal lymphadenopathy and placed on Incruse inhaler for suspected COPD Cardiology gave 1 dose of IV Lasix on 07/21 for suspected volume overload Needs pulmonary f/u post-discharge for PFTs etc O2 has been weaned off and sats now stable (6) Diabetes mellitus type 2 in obese: Plan: Reported allergies to Metformin and Jardiance. She continues to refuse insulin. Hemoglobin A1c elevated at 8.1%. Continue Januvia 100mg daily but clearly needs additional therapy beyond this. (7) Abnormal chest CT: Plan: CT angiogram of the chest performed for shortness of breath and noted to have heterogeneity of the thyroid. 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--> consulted Dr Solis from ortho-spine for further eval--> recommends repeat MRI in 3 to 6 months No surgery/Rx needed at this time Continue doxycycline Continue umeclidinium inhaler 1 puff once daily [facility] pulmonary f/u needed post-discharge (8) NSTEMI (non-ST elevated myocardial infarction): Plan: see #1 above (9) Hypomagnesemia: Plan: repleted resolved (10) Mediastinal lymphadenopathy: Plan: As seen on chest CT Follow-up with pulmonology as an outpatient (11) Dermatitis: Plan: b/l shins chronic etiology uncertain possible mild superimposed cellulitis especially on L alfaro cont doxycycline will refer to dermatology post-discharge for this (12) Chronic lower back pain: Plan: no issues today (13) Hyperthyroidism: Plan: TSH this admission wnl Cont methimazole current dose (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: Plan: ortho-spine f/u needed post-discharge appreciate Dr Solis's consultation Plan cath tomorrow this will dictate remainder of her stay Admission and Anticipated Discharge Date Admission Date: July 19, 2022 Subjective patient converted to NSR overnight since then has had sinus bradycardia in the 50s patient w/o complaints during the visit denies throat or neck pain, chest pain, dyspnea or orthopnea she IS willing to have heart cath tomorrow daughter at bedside - she was updated Review of Systems Review of Systems: gen - no fevers skin - chronic rash b/l shins - no pruritis cv - no palpitations, cp, orthopnea pulm - no cough GI - no nausea/emesis/abd pain; last BM yesterday Physical Exam Physical Exam: gen - NAD neck - no JVD heart - reema, s1 s2, no murmur lungs - CTA b/l abd - soft NT ND BS+ ext - no edema, pulses 2+ b/l skin - b/l shins - erythematous macules and papules anteriorly; some are spongy in feel; mild inflammation of left alfaro with some scale Results & Data Results & Data ([facility]) Vital Signs (Past 12 Hours) Vital Signs Temp Pulse Resp BP BP Pulse Ox O2 Del Method 07/23/22 19:05 36.6 C 62 18 161/82 H 94 Room Air 07/23/22 15:10 36.6 C 62 19 172/80 H 91 Room Air 07/23/22 11:00 36.6 C 54 L 16 169/77 H 93 Room Air Laboratory Results Laboratory Results - last 24 hr 07/23/22 07/23/22 07/23/22 05:49 05:49 07:29 WBC 12.72 H RBC 4.90 Hgb 14.8 Hct 44.5 MCV 90.8 MCH 30.2 MCHC 33.3 RDW Std Deviation 46.2 RDW Coeff of Rasheed 13.7 Plt Count 281 MPV 11.4 Immature Gran % (Auto) 0.3 Neut % (Auto) 69.2 Lymph % (Auto) 20.0 [place] % (Auto) 8.8 Eos % (Auto) 1.5 Baso % (Auto) 0.2 Neut # (Auto) 8.79 H Lymph # (Auto) 2.55 [place] # (Auto) 1.12 H Eos # (Auto) 0.19 Baso # (Auto) 0.03 Immature Gran # (Auto) 0.04 H Sodium 137 Potassium 4.1 Chloride 104 Carbon Dioxide 26 Anion Gap 7 BUN 14 Creatinine 0.61 Est Cr Clr Drug Dosing 93.7 Est GFR ( Amer) 110.3 Est GFR (Non-Af Amer) 95.1 BUN/Creatinine Ratio 23.0 H Glucose 182 H POC Glucose 172 H Calcium 9.1 Magnesium 1.8 07/23/22 07/23/22 07/23/22 12:04 16:05 20:28 WBC RBC Hgb Hct MCV MCH MCHC RDW Std Deviation RDW Coeff of Rasheed Plt Count MPV Immature Gran % (Auto) Neut % (Auto) Lymph % (Auto) [place] % (Auto) Eos % (Auto) Baso % (Auto) Neut # (Auto) Lymph # (Auto) [place] # (Auto) Eos # (Auto) Baso # (Auto) Immature Gran # (Auto) Sodium Potassium Chloride Carbon Dioxide Anion Gap BUN Creatinine Est Cr Clr Drug Dosing Est GFR ( Amer) Est GFR (Non-Af Amer) BUN/Creatinine Ratio Glucose POC Glucose 164 H 177 H 187 H Calcium Magnesium PG Care Time/CCT Total # of Minutes Spent Total Time Spent with Patient: Total time spent is greater than 50% in coordination of care (as documented) at patient's floor/unit and/or counseling patient: Coding Level of Care Code 38650 Subseq Hosp Care Lvl 2 Diagnoses Rapid atrial fibrillation I48.91 Elevated troponin R77.8 Neck pain M54.2 Depression with anxiety F41.8 Acute respiratory failure with hypoxia J96.01 Diabetes mellitus type 2 in obese E11.69; E66.[address] R93.89 NSTEMI (non-ST elevated myocardial infarction) I21.4 Hypomagnesemia E83.42 Mediastinal lymphadenopathy R59.0 Dermatitis L30.9 Chronic lower back pain M54.50; G89.29 Hyperthyroidism E05.90 Neuroenteric cyst Q06.8
[2022-07-23] MEDS: ZOLPIDEM TARTRATE 5 MG TAB PO PRN (21:21)
[2022-07-24] MEDS ORDERED: AMIODARONE 200 MG TAB PO ONE (05:50)
[2022-07-24] MEDS ORDERED: METOPROLOL TARTRATE 25 MG TAB PO ONE (05:51)
[2022-07-24] MEDS ORDERED: fentaNYL citrate 100 MCG/2 ML VIAL ONE (07:55)
[2022-07-24] MEDS ORDERED: niCARdipine HCL INJ 2.5 MG/ML 10 ML AMP ONE (07:55)
[2022-07-24] MEDS ORDERED: HEPARIN (PORCINE) 1000 UNIT/ML 10 ML (CATH LAB USE ONLY) ONE (07:55)
[2022-07-24] MEDS ORDERED: MIDAZOLAM HCL 1 MG/ML 2ML VIAL ONE (07:56)
[2022-07-24] MEDS ORDERED: NITROGLYCERIN/D5W 100MCG/ML 20ML SYR ONE (07:57)
--- NOTE | 2022-07-24 08:14 | Pre Anesthesia Assessment ---
Date of Service July 24, 2022 Pre Sedation Assessment Vital Signs Temp Pulse Pulse Resp BP BP Pulse Ox 07/24/22 07:29 97.7 F 111 H 16 113/88 92 07/24/22 05:47 142 H 152/88 H 07/23/22 23:00 68 07/24/22 03:16 97.9 F 68 20 163/86 H 92 07/23/22 23:32 98.1 F 66 18 155/82 H 93 07/23/22 20:00 07/23/22 19:05 97.9 F 62 18 161/82 H 94 07/23/22 15:10 97.9 F 62 19 172/80 H 91 07/23/22 11:00 97.9 F 54 L 16 169/77 H 93 O2 Del Method 07/24/22 07:29 Room Air 07/24/22 05:47 07/23/22 23:00 07/24/22 03:16 Room Air 07/23/22 23:32 Room Air 07/23/22 20:00 Room Air 07/23/22 19:05 Room Air 07/23/22 15:10 Room Air 07/23/22 11:00 Room Air Cardiovascular RRR, no murmur, no edema Respiratory normal respiratory effort, lungs clear to auscultation Pre-Sedation Airway Assessment Smoking Status: Former smoker Hx Sleep Apnea: No Short, Thick Neck: No Thyromental Distance: > or= 3.5 Finger Breadths Oral Cavity: + Dentures Mallampati Class: III ASA: ASA3 NPO Status Date of Last Intake of Fluids: 07/24/22 Date of Last Intake of Solid Food: 07/23/22 Procedure Planning Contraindications for Sedation: none Current Medications Reviewed: Yes Notes The planned sedation has been discussed with the patient. Informed Consent was obtained. I have identified the patient, determined the appropriateness of sedation and have assessed the patient immediately prior to the procedure. All medicine(s) and interventions are by my order.
[2022-07-24] MEDS: INSULIN ASPART PER UNIT SC SCH ×4 (08:33→20:53)
[2022-07-24] MEDS ORDERED: METOPROLOL TARTRATE 1 MG/ML VIAL IV ONE (08:49)
[2022-07-24] MEDS ORDERED: dilTIAZem HCl 5 MG/ML 5 ML VIAL (CATH LAB USE ONLY) ONE (08:53)
--- NOTE | 2022-07-24 09:25 | Post Anesthesia Assessment ---
Date of Service July 24, 2022 Post Sedation Assessment Vital Signs Temp Pulse Pulse Resp BP BP Pulse Ox 07/24/22 09:15 85 20 115/62 95 07/24/22 09:20 80 20 115/60 96 07/24/22 09:05 84 20 105/78 94 07/24/22 08:57 150 H 07/24/22 07:00 122 H 07/24/22 07:29 97.7 F 111 H 16 113/88 92 07/24/22 05:47 142 H 152/88 H 07/23/22 23:00 68 07/24/22 03:16 97.9 F 68 20 163/86 H 92 07/23/22 23:32 98.1 F 66 18 155/82 H 93 07/23/22 20:00 07/23/22 19:05 97.9 F 62 18 161/82 H 94 07/23/22 15:10 97.9 F 62 19 172/80 H 91 07/23/22 11:00 97.9 F 54 L 16 169/77 H 93 O2 Del Method 07/24/22 09:15 Room Air 07/24/22 09:20 Room Air 07/24/22 09:05 Room Air 07/24/22 08:57 07/24/22 07:00 07/24/22 07:29 Room Air 07/24/22 05:47 07/23/22 23:00 07/24/22 03:16 Room Air 07/23/22 23:32 Room Air 07/23/22 20:00 Room Air 07/23/22 19:05 Room Air 07/23/22 15:10 Room Air 07/23/22 11:00 Room Air Recovery Score Activity: Moves 4 extremities Respiration: Deep Breath/Cough Circulation: +/-20% PreAnes Value Consciousness: Fully Awake Oxygen Saturation: > 92% On Room Air Post Anesthesia Score: 10 Discharge Sedation Level of Care: Fast Track Phase II Post Sedation Plan On clinical assessment, the patient appears to have tolerated the sedation without complications. Patient is recovering as anticipated. Patient will continue to be monitored by nursing and may be discharged when sedation discharge criteria are met per below protocol. Upon Completions of procedure up to 15 minutes continue every 5 minute vital signs and the P.A.R. score; then discharge to a Phase I or Fast Track to Phase II per the following guidelines: * Discharge Patient to appropriate Phase II area if PAR is 8 or greater or return to pre- procedure baseline. The post - procedure orders will be as directed. * If PAR score is less than 8 or not return to pre-procedure baseline then patient will follow Phase I monitoring till PAR is reached for Phase II. The Phase I may be done in procedure room or may call to secure a Phase I area. * If naloxone or flumazenil are used for reversal, hold in Phase I for continued monitoring from when last reversal dose was given for a minimum of 60 minutes or longer pending the nurse and/or physician discretion of patient condition before discharge to Phase II. Please call the Sedation Physician to re-evaluate and complete post-note for discharge to Phase II area. Do NOT discharge from procedure sedation or Phase 1 until post- sedation evaluation note is complete by procedure /sedation MD Sedation Discharge Instructions to be given to the patient at discharge to home.
--- NOTE | 2022-07-24 09:36 | Cardiac Catheterization ---
[facility] Data: [employer] Cardiac Status Clinical evaluation leading to the procedure CAD Presenation: Non STEMI Anginal Classification: CCS IV Diagnostic Physicians Name: Jean-Claude Tolbert MD Closure Device Recommendations: Medical Therapy and/or Counseling Cardiac Cath Procedure Full Procedure Date July 24, 2022 Pre-Procedure Diagnosis Pre-Procedure Diagnosis: Acute Coronary Syndrome AUC Score AUC Score: 7 Post-Procedure Diagnosis Post-Procedure Diagnosis: Severe CAD and Elevated Intracardiac Pressures Procedure(s) Performed Procedure(s) Performed: Coronary Angiography and Left Heart Cath Transportation Refrigeration Technician Jean-Claude Tolbert MD Steam Blocker(s) Supervisor [employer] Dressing Estimated Blood Loss Estimated Blood Loss: 5 Medication(s) Medication(s): Fentanyl, Heparin, Lidocaine 1%, Nicardipine, Nitroglycerin and Versed Medication(s): Lopressor, Diltiazem Summary of Findings Indication: NSTEMI Access: 6 Fr right radial artery Catheters: [place] Findings: LM -medium caliber, no significant disease LAD -medium caliber, 20% proximal stenosis, remainder of vessel without significant disease and distal vessel extends around apex. Circumflex -small to medium caliber, diffuse mid segment disease into OM2 up to 60%. Small OM1 without disease. RCA -medium caliber, dominant, 40 to 50% proximal, distal luminal regularities. RPDA without significant disease. RPL 1 with 70% proximal stenosis. LVEDP -21 Arterial Closure: TR band Summary: 1. Multivessel coronary artery disease -60% diffuse disease mid circumflex into OM2 40-50% proximal RCA, 70% proximal small RPBL1 2. Elevated intracardiac filling pressure 3. Atrial fibrillation with RVR Recommendations: No high risk CAD identified. Recommend medical management of moderate to severe, smaller vessel disease. Additional rate/rhythm control for atrial fibrillation Can resume anticoagulation with Eliquis this evening Hemodynamics Rest Ao:: 142/82/114 Final Ao: 126/88/102 LV: 123/21 Recommendations Recommendations: Medical Therapy and/or Counseling Specimens Specimens: None Radiation Exposure (mGy) 812 Contrast (mls) 30 Anesthesia Moderate 9621-4891 Procedural Complication(s) None Disposition PCU I attest to the content of the Intraoperative Record and any orders documented therein. Any exceptions are noted below. [employer] Card Cath Procedure Codes Cardiac Catheterization Procedure 1: Cardiovascular Cath Procedures: 19519 Coronaries and LHC (+/-LV) Moderate Sedation Procedure 1: Sedation/Anesthesia: 63760 Mod Sedation by the same physician;Init15 Min Child Age 5 & Up PG Care Time/CCT Total # of Minutes Spent Total Time Spent with Patient: Total time spent is greater than 50% in coordination of care (as documented) at patient's floor/unit and/or counseling patient:
--- NOTE | 2022-07-24 10:52 | Cardiology Progress Note ---
Date of Service July 24, 2022 Assessment & Plan (1) Persistent atrial fibrillation: Plan: -converted to sinus rhythm on intravenous amiodarone, however, reverted back to atrial fibrillation this morning. -would reinitiate intravenous amiodarone. -continue Eliquis. (2) Elevated troponin: Plan: -troponin peaked at 2907. -symptoms on presentation were concerning for myocardial ischemia. -continue metoprolol and aspirin. (3) CAD (coronary artery disease): Plan: -cardiac catheterization performed this morning by Dr. Tolbert. -60-70% diffuse LCx disease, 70% stenosis in small RPLB. -continue medical management. (4) Dyslipidemia: Plan: -atorvastatin increased to 80 mg daily. Admission and Anticipated Discharge Date Admission Date: July 19, 2022 Subjective The patient is resting comfortably in bed without complaints of chest pain, dyspnea, palpitations. We have discussed the results of her cardiac catheterization. We have also discussed need for rhythm control and long-term anticoagulation for her paroxysmal atrial fibrillation. Her daughter, Jennifer, is at the bedside. Physical Exam Physical Exam: In general is well-developed well-nourished white female no acute distress. HEENT exam is negative. Neck is supple with full carotid upstrokes. There are no carotid bruits. No jugular venous distention. Cardiovascular exam reveals irregular irregular rhythm with distant heart sounds. No obvious murmurs. Lungs are clear without rales, rhonchi or wheezes. Abdomen is soft without bruits. Extremities reveal intact radial artery pulses bilaterally. Trace pretibial edema is noted. Results & Data ([facility]) Vital Signs (Past 12 Hours) Vital Signs Temp Pulse Pulse Resp BP BP Pulse Ox 07/24/22 10:41 88 16 141/71 H 95 07/24/22 10:00 88 16 129/77 97 07/24/22 10:11 36.9 C 95 H 16 138/77 97 07/24/22 09:15 85 20 115/62 95 07/24/22 09:20 80 20 115/60 96 07/24/22 09:05 84 20 105/78 94 07/24/22 08:57 150 H 07/24/22 07:00 122 H 07/24/22 07:29 36.5 C 111 H 16 113/88 92 07/24/22 05:47 142 H 152/88 H 07/23/22 23:00 68 10/12/22 03:16 36.6 C 68 20 163/86 H 92 07/23/22 23:32 36.7 C 66 18 155/82 H 93 O2 Del Method 07/24/22 10:41 Room Air 07/24/22 10:00 Room Air 07/24/22 10:11 Room Air 07/24/22 09:15 Room Air 07/24/22 09:20 Room Air 07/24/22 09:05 Room Air 07/24/22 08:57 07/24/22 07:00 07/24/22 07:29 Room Air 07/24/22 05:47 07/23/22 23:00 07/24/22 03:16 Room Air 07/23/22 23:32 Room Air Diagnostic Findings The patient reverted to atrial fibrillation at approximately 5:00 a.m. today. Ventricular response is now adequately controlled. PG Care Time/CCT Total # of Minutes Spent Total Time Spent with Patient: Total time spent is greater than 50% in coordination of care (as documented) at patient's floor/unit and/or counseling patient: Coding Level of Care Code 19402 Subseq Hosp Care Lvl 3 Diagnoses Persistent atrial fibrillation I48.19 Elevated troponin R77.8 CAD (coronary artery disease) I25.10 Dyslipidemia E78.5
[2022-07-24] MEDS: methIMAzole 5 MG TABLET PO SCH (11:14)
[2022-07-24] MEDS: PANTOprazole 40 MG TAB PO SCH (11:14)
[2022-07-24] MEDS: ASPIRIN 81 MG ECTAB PO SCH (11:14)
[2022-07-24] MEDS: LANTUS PER UNIT CHARGE SQ SCH (11:15)
[2022-07-24] MEDS: APIXABAN 5 MG TABLET PO SCH ×2 (11:15→20:20)
[2022-07-24] MEDS: SITagliptin PHOSPHATE 100 MG TAB PO SCH (11:15)
[2022-07-24] MEDS: DOCUSATE SODIUM 100 MG CAP PO SCH ×2 (11:15→20:21)
[2022-07-24] MEDS: UMECLIDINIUM BROMIDE 62.5MCG/BLISTER 7 PUFFS/INHALER INH SCH (11:16)
[2022-07-24] MEDS: DOXYCYCLINE HYCLATE 100 MG in DEXTROSE 5% 100 ML IV SCH ×2 (11:16→20:22)
[2022-07-24] MEDS ORDERED: 0.2 MICRON FILTER SET 1 EACH IV ONE (17:36)
[2022-07-24] MEDS ORDERED: METOPROLOL TARTRATE 25 MG TAB PO STA (17:37)
[2022-07-24] MEDS ORDERED: AMIODARONE / D5W 360 MG/200 ML BAG IV SCH (17:45)
[2022-07-24] MEDS: SERTRALINE HCL 50 MG TABLET PO SCH (20:20)
[2022-07-24] MEDS: ATORVASTATIN 40 MG TAB PO SCH (20:20)
--- NOTE | 2022-07-24 22:05 | Hospitalist Progress Note ---
Date of Service July 24, 2022 Assessment & Plan (1) Rapid atrial fibrillation: Plan: Unfortunately she converted back to rapid a.fib overnight last pm. This was despite several days of IV amiodarone. 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 I spoke with Dr Farr - will resume amiodarone drip. However, patient thus far refusing to take it. She is only willing to take metoprolol at this time. I reviewed the risks of ongoing uncontrolled a.fib including right of developing CHF, etc. She remains on Eliquis BID. Recent echocardiogram with preserved LV function. Recent k/mag wnl. Recent TSH wnl. (2) CAD (coronary artery disease): Plan: Moderate on cath today - see cath report. appreciate Dr Tolbert assistance. Cont asa. Cont high-intensity statin (80mg daily). Unfortunately her DM is uncontrolled and she is unwilling to take insulin at this time. (3) Elevated troponin: Plan: 2nd to myocardial demand ischemia in setting of #1. Peak HS troponin 2900 and trended down. Heavy concern that the presenting anterior neck pain was her anginal equivalent. Echocardiogram with preserved LV function and no wall motion abnormalities. s/p cath today with results as noted below. Continue aspirin Continue atorvastatin Continue metoprolol tartrate 25mg BID (4) Neck pain: Plan: Anterior neck pain - resolved with resolution of rapid atrial fibrillation This pain may have been anginal equivalent - uncertain MRI cervical spine - DJD noted (5) Depression with anxiety: Plan: Patient requested medication as was on something daily in the past Started Zoloft 25mg po hs x 7 days then increase to 50mg hs on 07/28 Could consider low-dose buspar for anxiety as well Will need PCP f/u (6) Acute respiratory failure with hypoxia: Plan: Initially with RRs in the high 20s and O2 sats about 88% on hospital day #1 Perhaps 2nd to #1 Perhaps primary pulmonary based - acute bronchitis (or COPD with exacerbation) based on chest CT findings Seen by pulmonology due to mediastinal lymphadenopathy and placed on Incruse inhaler for suspected COPD Cardiology gave 1 dose of IV Lasix on 07/21 for suspected volume overload Needs pulmonary f/u post-discharge for PFTs etc O2 has been weaned off and sats remain stable (7) Diabetes mellitus type 2 in obese: Plan: Reported allergies to Metformin and Jardiance. She continues to refuse insulin. Hemoglobin A1c elevated at 8.1%. Continue Januvia 100mg daily but clearly needs additional therapy beyond this. (8) Abnormal chest CT: Plan: CT angiogram of the chest performed for shortness of breath and noted to have heterogeneity of the thyroid. 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--> consulted Dr Solis from ortho-spine for further eval--> recommends repeat MRI in 3 to 6 months No surgery/Rx needed at this time Continue doxycycline Continue umeclidinium inhaler 1 puff once daily [facility] pulmonary f/u needed post-discharge (9) NSTEMI (non-ST elevated myocardial infarction): Plan: type 2 (10) Hypomagnesemia: Plan: repleted resolved (11) Mediastinal lymphadenopathy: Plan: As seen on chest CT Follow-up with pulmonology as an outpatient (12) Dermatitis: Plan: b/l shins chronic etiology uncertain possible mild superimposed cellulitis especially on L alfaro cont doxycycline will refer to dermatology post-discharge for this (13) Chronic lower back pain: Plan: no issues today (14) Hyperthyroidism: Plan: TSH this admission wnl Cont methimazole current dose (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: ortho-spine f/u needed post-discharge appreciate Dr Solis's consultation Plan patient threatening AMA fifi however, has no way of actually getting home as her daughters would be her ride and they are not available hopefully she remains hospitalized overnight, takes the amiodarone infusion, etc Daughter, Jennifer, updated extensively by phone Admission and Anticipated Discharge Date Admission Date: July 19, 2022 Subjective patient was in NSR overnight but unfortunately converted back to rapid a.fib about 0500 this am patient underwent heart cath by Dr Tolbert today 2 lesions found on cath - medical management advised later in the day the patient became irate and demanded to be discharged I was contacted by nursing about this and came to the bedside the patient was very upset, stating "I'm going home" multiple times when asked why she was so upset she said "I was supposed to go home today" I explained to her that the rapid a.fib had returned this am and that cardiology was attempting to control this they had recommended resumption of the amiodarone drip unfortunately she refused to allow the drip to be restarted I counseled her on the risks of leaving with rapid a.fib including development of CHF, pulmonary edema, etc. I also counseled her that if she left it would be AMA (against medical advice) and no prescriptions would be provided she started calling all of her children she ultimately reached her daughter Jennifer Henning put Jennifer on speaker phone Jennifer encouraged her mother to remain hospitalized I explained to Jennifer the situation with respect to the rapid a.fib and why it was important to get it under control before discharge Jennifer remained very supportive and again continued to encourage her mother to stay hospitalized further, Jennifer told her mother that she nor any of the other children could pick her up this evening patient was ultimately agreeable to staying but refused the amiodarone infusion she DID take the extra PO metoprolol Review of Systems Review of Systems: cv - no chest pain pulm - no dyspnea GI - no pain Physical Exam Physical Exam: gen - very agitated and upset but a/o x 3 and retains capacity to make her own medical decisions neck - no JVD heart - tachy, irregularly irregular, s1 s2 lungs - CTA b/l ext - no edema Results & Data Results & Data ([facility]) Vital Signs (Past 12 Hours) Vital Signs Temp Pulse Resp BP BP Pulse Ox O2 Del Method 07/24/22 19:54 36.8 C 117 H 18 159/94 H 91 Room Air 07/24/22 16:29 36.7 C 99 H 18 132/66 92 Room Air 07/24/22 15:11 109 H 07/24/22 14:11 118 H 07/24/22 13:11 104 H 07/24/22 12:11 118 H 16 07/24/22 11:11 120 H 16 96 07/24/22 10:41 88 16 141/71 H 95 Room Air 07/24/22 10:11 36.9 C 95 H 16 138/77 97 Room Air Laboratory Results Laboratory Results - last 24 hr 07/24/22 07/24/22 07/24/22 07:09 11:04 16:25 POC Glucose 152 H 184 H 114 H 07/24/22 20:49 POC Glucose 206 H Diagnostic Findings Left heart cath by Dr Tolbert - Findings: LM -medium caliber, no significant disease LAD -medium caliber, 20% proximal stenosis, remainder of vessel without significant disease and distal vessel extends around apex. Circumflex -small to medium caliber, diffuse mid segment disease into OM2 up to 60%. Small OM1 without disease. RCA -medium caliber, dominant, 40 to 50% proximal, distal luminal regularities. RPDA without significant disease. RPL 1 with 70% proximal stenosis. PG Care Time/CCT Total # of Minutes Spent Total Time Spent with Patient: Total time spent is greater than 50% in coordination of care (as documented) at patient's floor/unit and/or counseling patient: Coding Level of Care Code 82787 Subseq Hosp Care Lvl 3 Diagnoses Rapid atrial fibrillation I48.91 CAD (coronary artery disease) I25.10 Elevated troponin R77.8 Neck pain M54.2 Depression with anxiety F41.8 Acute respiratory failure with hypoxia J96.01 Diabetes mellitus type 2 in obese E11.69; E66.[address] R93.89 NSTEMI (non-ST elevated myocardial infarction) I21.4 Hypomagnesemia E83.42 Mediastinal lymphadenopathy R59.0 Dermatitis L30.9 Chronic lower back pain M54.50; G89.29 Hyperthyroidism E05.90 Neuroenteric cyst Q06.8
[2022-07-24] MEDS: METOPROLOL TARTRATE 25 MG TAB PO SCH (22:34)
[2022-07-24] MEDS: traMADol HCL 50 MG TABLET PO PRN (22:34)
[2022-07-25] MEDS ORDERED: ALUMINUM/MAGNESIUM SUSP 30 ML UDC PO ONE (01:58)
[2022-07-25] MEDS: ALUMINUM/MAGNESIUM SUSP 30 ML UDC ONE ×2 (02:15→02:17)
[2022-07-25] MEDS: traMADol HCL 50 MG TABLET PO PRN (05:14)
[2022-07-25 06:59] LABS: BUN Creatinine Ratio 24.6 (10-20); Calcium 9.4 mg/dl (8.5-10.1); Creatinine Clr Calc Pharmacy 82.1 ml/min; Est GFR (African American) 105.9 ml/min; Est GFR (Non-African American) 91.4 ml/min; Potassium 4.2 mmol/L (3.5-5.1)
[2022-07-25] MEDS: LANTUS PER UNIT CHARGE SQ SCH (07:31)
[2022-07-25] MEDS: INSULIN ASPART PER UNIT SC SCH ×2 (07:31→10:58)
[2022-07-25] MEDS ORDERED: AMIODARONE 200 MG TAB PO SCH (09:00)
[2022-07-25] MEDS: APIXABAN 5 MG TABLET PO SCH (09:12)
[2022-07-25] MEDS: ASPIRIN 81 MG ECTAB PO SCH (09:12)
[2022-07-25] MEDS: methIMAzole 5 MG TABLET PO SCH (09:14)
[2022-07-25] MEDS: DOCUSATE SODIUM 100 MG CAP PO SCH (09:14)
[2022-07-25] MEDS: METOPROLOL TARTRATE 25 MG TAB PO SCH (09:18)
[2022-07-25] MEDS: PANTOprazole 40 MG TAB PO SCH (09:18)
[2022-07-25] MEDS: SITagliptin PHOSPHATE 100 MG TAB PO SCH (09:19)
[2022-07-25] MEDS: UMECLIDINIUM BROMIDE 62.5MCG/BLISTER 7 PUFFS/INHALER INH SCH (09:21)
[2022-07-25] MEDS: DOXYCYCLINE HYCLATE 100 MG in DEXTROSE 5% 100 ML IV SCH (10:58)
--- NOTE | 2022-07-25 11:35 | Discharge Summary ---
Date of Service July 25, 2022 Admission HPI Per Admitting Provider 67 y/o F Hx chronic back pain, HTN, HLD, DM II, hyperthyroid, chronic AF. presents with BL frontal neck pain. Upon auscultation in the ER, a rapid HR was noted. The pt was placed on a monitor which confirmed rapid AF with a rate of 180. She has not c/o CP, SOB, lightheadedness. Initial labs were notable for a trop of 745. TSH was WNL. Rapid AF is confirmed on EKG. It is also noted that she has some erythema and multiple small blisters on her distal lower extrems (L > R). She was apparently placed on antibiotics for this earlier in the week. PMH: 1) HTN 2) HLD - untreated 3) DM II - untreated 4) Hyperthyroidism 5) Chronic AF - Eliquis 6) Chronic lower back pain 7) Obese Surgical: 1) C section 2) Ovarian cystectomy Social: Does not drink or smoke. Family: Father - throat CA Mother - colon CA Discharge Exam gen - very agitated and upset but a/o x 3 and retains capacity to make her own medical decisions neck - no JVD heart - tachy, irregularly irregular, s1 s2 lungs - CTA b/l ext - no edema Discharge Data Allergies Allergy/AdvReac Type Severity Reaction Status Date / Time Cipro Allergy Mild SHORTNESS Verified 06/30/16 21:23 OF BREATH ciprofloxacin [Cipro] Allergy Mild SHORTNESS Verified 11/10/21 14:55 OF BREATH miconazole Allergy Mild Rash Verified 06/30/16 21:23 empagliflozin Allergy Unknown Unknown Verified 11/10/21 14:55 [From Jardiance] metformin Allergy Unknown Unknown Verified 11/10/21 14:56 Consultations 07/19/22 20:23 ED Decision to Admit Stat 07/19/22 23:30 Consult Cardiology Routine 07/20/22 09:42 Consult Pulmonology Routine 07/21/22 10:16 Consult Orthopedic Surgery Routine Procedures Performed Operation Date: 07/24/22 08:00 Actual Procedures p Cineradiography w/Routine Exam - Harrison Tolbert MD s Cath, Left with Cors and Vent - Harrison Tolbert MD Ordered Studies 07/19/22 20:13 CT angio chest PE protocol Stat 07/20/22 15:53 MRI Cervical [MR cervical spine wo/w con] Routine MRI Thoracic [MR thoracic spine wo/w con] Routine 07/24/22 06:33 CL Cath Imgs for PACS use only Routine Hospital Course (1) Rapid atrial fibrillation: Unfortunately she converted back to rapid a.fib overnight last pm. This was despite several days of IV amiodarone. 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 I spoke with Dr Farr - will resume amiodarone drip. However, patient thus far refusing to take it. She is only willing to take metoprolol at this time. I reviewed the risks of ongoing uncontrolled a.fib including right of developing CHF, etc. She remains on Eliquis BID. Recent echocardiogram with preserved LV function. Recent k/mag wnl. Recent TSH wnl. (2) CAD (coronary artery disease): Moderate on cath today - see cath report. appreciate Dr Tolbert assistance. Cont asa. Cont high-intensity statin (80mg daily). Unfortunately her DM is uncontrolled and she is unwilling to take insulin at this time. (3) Elevated troponin: 2nd to myocardial demand ischemia in setting of #1. Peak HS troponin 2900 and trended down. Heavy concern that the presenting anterior neck pain was her anginal equivalent. Echocardiogram with preserved LV function and no wall motion abnormalities. s/p cath today with results as noted below. Continue aspirin Continue atorvastatin Continue metoprolol tartrate 25mg BID (4) Neck pain: Anterior neck pain - resolved with resolution of rapid atrial fibrillation This pain may have been anginal equivalent - uncertain MRI cervical spine - DJD noted (5) Depression with anxiety: Patient requested medication as was on something daily in the past Started Zoloft 25mg po hs x 7 days then increase to 50mg hs on 07/28 Could consider low-dose buspar for anxiety as well Will need PCP f/u (6) Acute respiratory failure with hypoxia: Initially with RRs in the high 20s and O2 sats about 88% on hospital day #1 Perhaps 2nd to #1 Perhaps primary pulmonary based - acute bronchitis (or COPD with exacerbation) based on chest CT findings Seen by pulmonology due to mediastinal lymphadenopathy and placed on Incruse inh aler for suspected COPD Cardiology gave 1 dose of IV Lasix on 07/21 for suspected volume overload Needs pulmonary f/u post-discharge for PFTs etc O2 has been weaned off and sats remain stable (7) Diabetes mellitus type 2 in obese: Reported allergies to Metformin and Jardiance. She continues to refuse insulin. Hemoglobin A1c elevated at 8.1%. Continue Januvia 100mg daily but clearly needs additional therapy beyond this. (8) Abnormal chest CT: CT angiogram of the chest performed for shortness of breath and noted to have heterogeneity of the thyroid. 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--> consulted Dr Solis from ortho-spine for further eval--> recommends repeat MRI in 3 to 6 months No surgery/Rx needed at this time Continue doxycycline Continue umeclidinium inhaler 1 puff once daily [facility] pulmonary f/u needed post-discharge (9) NSTEMI (non-ST elevated myocardial infarction): type 2 (10) Hypomagnesemia: repleted resolved (11) Mediastinal lymphadenopathy: As seen on chest CT Follow-up with pulmonology as an outpatient (12) Dermatitis: b/l shins chronic etiology uncertain possible mild superimposed cellulitis especially on L alfaro cont doxycycline will refer to dermatology post-discharge for this (13) Chronic lower back pain: no issues today (14) Hyperthyroidism: TSH this admission wnl Cont methimazole current dose (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 atrial fibrillation - converted back to normal rhythm 2. coronary artery disease 3. uncontrolled type 2 diabetes 4. chronic skin rash of bilateral legs 5. hyperthyroidism Condition on Discharge: Good Activity: Per Instructions section Sexual Activity: Wait until after follow-up appointment Exercise/Sports: Wait until after follow-up appointment Driving/Machine Use: See post-heart catheterization instructions Non-emergency contact: Primary Care Provider, Specialist and Municipal Maintenance Worker Call non-emergency contact if: you have any medication questions and your symptoms worsen Follow-up/Referrals: Tim Farr MD [Physician] - (with in 1 week) Zach Solis DO [Surgeon] - (3-4 months - f/u cyst in back ) Zach Castelan MD [Primary Care Provider] - (5 days with primary care provider) Adalberto Whitmore MD [Physician] - (first available appt for bilateral leg rash) Diet: Carb Consistent or DM2 and Heart Healthy Addtl Attending Provider Instructions: Ms Henning, You were treated for atrial fibrillation ("afib") during your stay. The afib was difficult to control with our first line medications and ultimately you required a medication called amiodarone. This was given to you IV then converted over to an oral pill form. You did convert out of afib several times back to normal rhythm including on the morning of discharge. There is a good possibility that you will return to afib at some point in the future and thus it is important to monitor your blood pressure and heart rate at home. I would recommend that you check your blood pressure and heart rate at least twice a day. You should also check the blood pressure/heart rate if you are not feeling well (short of breath, heart palpitations, chest discomfort, etc). If your heart rate is consistently over 100 that would be a potential sign you have entered back into afib. If you are concerned you are back in afib please contact the [facility] milling machine set up operator right away. We were also concerned that some of your presenting symptoms (throat/neck pain, shortness of breath, etc) were due to coronary artery disease. Thus, on 07/24/22, Dr Jean-Claude Tolbert performed heart catheterization. This showed moderate amount of coronary disease with 2 vessels 70% clogged. You had other areas of minor clogging. Uncontrolled diabetes, poor diet, prior smoking, high cholesterol, etc all contribute to worsening of coronary artery disease. Please see coronary artery disease handout. Dr Tolbert & Dr Farr recommend taking a baby aspirin daily along with cholesterol medication for the coronary disease (atorvastatin). Additional recommendations - 1. afib - * take amiodarone 200mg once daily every day * please lower your metoprolol succinate from 25mg twice daily to ONCE DAILY only * continue your Eliquis twice daily as previous 2. high blood pressure - please STOP your lisinopril for now. 3. skin rash/possible infection of shins - please take the following 2 antibiotics: * cephalexin 500mg three times daily x 5 days * doxycycline 100mg twice daily x 5 days * start both today 4. for high cholesterol take - * atorvastatin 80mg once daily every day 5. for anxiety, depressed mood, etc take SERTRALINE as follows - * 1/2 tablet (25mg) once daily at bedtime x 3 days, then - * 1 full tablet (50mg) once daily at bedtime thereafter * this medication takes about 4 weeks to fully start to lower your stress & anxiety * if you ever feel suicidal or homicidal while taking this medication please STOP the medication right away and contact your family doctor 6. we have changed your acid valve assembler pill from omeprazole to pantoprazole. The latter medication pantoprazole is 40mg every morning. 7. you were seen by the lung doctors and they recommended an inhaler called Incruse Ellipta. take 1 puff once daily every day. 8. in your back near the spine, there is a cyst that will need to be followed. Dr Jose A Solis with [facility] can see you in about 3-4 months for this and repeat an MRI at that time. Please ask your family doctor for a referral to Dr Solis for this down the line. 9. please speak with your family doctor about your diabetes medications. Follow-up - see separate section Return to [facility] if - * you have any concerns that you are back in a.fib or if your milling machine set up operator instructs you to go to the ER * you are short of breath * you have chest pains * you have nausea or vomiting - especially if these symptoms occur in conjunct ion with breathing difficulty or chest pain * you have severe diarrhea * you have any concerns about your heart catheterization site on the right wrist * any other concerns Addtl Machine Helper Provider Instructions: ACTIVITY RECOMMENDATIONS following your heart catheterization - It is common to feel weak and fatigue for a few days. * Do not drive or operate any motorized equipment for the next three days. * Limit stair usage (2 or 3 trips a day only) for the next three days. * Do not lift anything heavier than 10 pounds for the next three days especially with the right hand/arm.. * Do not engage in vigorous exercise or any sports until seen by cardiology. . * You may shower the day after your procedure, but do not immerse the RIGHT WRIST area for three days. Cleanse the site gently with soap and water. SPECIAL CARE INSTRUCTIONS: * You may replace the pressure dressing or band-aid the morning after the procedure. * After your procedure, it is normal to have a small bruise or small lump at the site. Examine your site daily for any change in the bruise or lump, redness, swelling, drainage or numbness. Notify your doctor if any change. BLEEDING: * If there is a small amount of bleeding at the site, lie down and apply firm pressure with a clean cloth for ten minutes. When the bleeding stops, lie quietly keeping the procedure limb straight for six hours. Notify your doctor as soon as possible. * If the bleeding does not stop after ten minutes or if there is a large amount of bleeding or spurting, call 911 immediately. Continue to lie down and hold firm pressure until help arrives. SKIN IRRITATION: * You may experience some redness and/or swelling in the area where radiation was administered. If any skin irritation occurs, please contact your family physician. FOLLOW UP VISIT: Keep any scheduled doctor appointments. Pending Studies at Discharge: No Stand-Alone Forms: My [facility] StyleChat by [employer], Smoking Cessation Medications and DC Order Prescriptions: New amiodarone 200 mg Tablet 200 mg PO QAM Qty: 30 2RF pantoprazole 40 mg Tablet,Delayed Release (Dr/Ec) 40 mg PO DAILY Qty: 30 2RF Incruse Ellipta 62.5 mcg/actuation Blister With Device 1 puff inhalation DAILY Qty: 1 2RF atorvastatin [Lipitor] 80 mg tablet 80 mg PO DAILY Qty: 30 2RF sertraline [Zoloft] 50 mg tablet 50 mg PO .hs as directed Qty: 30 2RF Rx Instructions: start 07/25/22 - take 1/2 tab PO HS x 3 days, then increase to 1 full tablet PO HS thereafter. cephalexin 500 mg capsule 500 mg PO TID 5 Days Qty: 15 0RF doxycycline hyclate 100 mg tablet 100 mg PO BID 5 Days Qty: 10 0RF Continued ASPIRIN (ASPIRIN EC) 81 MG tablet 81 mg PO DAILY Qty: 0 Januvia 100 mg tablet 100 mg PO DAILY tramadol 50 mg tablet 50 mg PO Q4H PRN (Reason: Pain) methimazole 10 mg tablet 10 mg PO DAILY Eliquis 5 mg tablet 5 mg PO BID Changed metoprolol succinate 25 mg tablet extended release 24 hr 25 mg PO QAM Qty: 30 0RF Discontinued meloxicam 15 mg tablet 15 mg PO DAILY omeprazole 20 mg capsule,delayed release(DR/EC) 20 mg PO DAILY lisinopril 2.5 mg tablet 2.5 mg PO DAILY Krames/Other Patient Handouts: Managing Type 2 Diabetes, CAD, AFib Admission Data Admit Date/Time: 07/19/22 22:05 Attending Provider: Giuliano Sheehan Admit Provider: Ty Oseguera Primary Care Provider: Zach Castelan Other Providers: Dillon Mahmood ; Jean-Claude Riley ; Kim Castellanos ; Zach Solis Coding Diagnoses Rapid atrial fibrillation I48.91 CAD (coronary artery disease) I25.10 Elevated troponin R77.8 Neck pain M54.2 Depression with anxiety F41.8 Acute respiratory failure with hypoxia J96.01 Diabetes mellitus type 2 in obese E11.69; E66.[address] R93.89 NSTEMI (non-ST elevated myocardial infarction) I21.4 Hypomagnesemia E83.42 Mediastinal lymphadenopathy R59.0 Dermatitis L30.9 Chronic lower back pain M54.50; G89.29 Hyperthyroidism E05.90 Neuroenteric cyst Q06.8
== END 2022-07-25 12:25 | disposition home or self-care (01) | DRG 280 ==
LOC: ED 16:14 → SUATTDRO 22:05 → 2E 22:05

== ENCOUNTER 2024-07-31 16:56 | Inpatient (IN) ==
--- NOTE | 2024-07-31 17:12 | Emergency Department Note ---
Impression & Plan Diabetic foot infection, Acute hypoxemic respiratory failure, Nausea & vomiting, Pulmonary edema, Pneumonia ED Provider Note HISTORY OF PRESENT ILLNESS: Patient is a 69-year-old female presenting with vomiting. Patient reports that this afternoon she was nauseous and then started to vomit. She reports that her friend called 911 and EMS reports that the call was for abdominal pain. Patient reportedly signed out AGAINST MEDICAL ADVICE from [facility] 2 days ago. She is being treated for her right ankle wound and cellulitis. Patient is on Eliquis. She reports she signed out AMA secondary to not liking how she was treated at their facility. She denies any fevers. Per EMS, the patient was found in her recliner covered in urine and feces. Patient's friend reports he has not gotten out of her recliner in over 24 hours. On arrival to the ER, patient denies any abdominal pain. She reports she just feels nauseous. Denies any chest pain or shortness of breath. ROS: as above PHYSICAL EXAM: Constitutional: Patient appears in no acute distress. HENT: Head: Normocephalic and atraumatic. Eyes: EOMI, PERRL Mouth/Throat: Mucous membranes moist. Neck: Trachea midline. Neck supple. Cardiovascular: Bradycardic. No murmurs, rubs or gallops. Intact distal pulses. Pulmonary/Chest: No respiratory distress. Breath sounds clear and equal bilaterally. No wheezes or rales. Abdominal: Abdomen soft, no tenderness, rebound or guarding. Back: Stage 2 pressure ulcers to sacrum and inferior gluteal folds. Musculoskeletal: No edema, tenderness or deformity noted. Skin: Warm and dry. Right anterior ankle and upper foot with open wounds. Foot wound has necrotic tissue in it. Surrounding erythema present. Neurological: Alert and keenly responsive. CN II-XII grossly intact, moving all extremities equally and fully. MDM: - Vitals signs showed bradycardia and hypoxia. Patient started on 6 L nasal cannula - History obtained via patient and EMS. History as above. - Chronic conditions affecting care: Afib; DM-2; COPD; HTN; HLD - Differential diagnoses include, but are not limited to: ACS; pneumonia; sepsis; UTI; pulmonary edema; appendicitis; CHF - Order placed for continuous cardiac monitoring. At this time, monitor showed rate of 40 bpm with normal sinus rhythm, per my interpretation. - External medical records reviewed. [facility] documentation from 07/26/2024 was reviewed. Patient was seen by Mary Larson PA-C. She had presented for bilateral lower extremity wounds. She reportedly follows with drawbridge operator from the wound center at [facility], but is poorly compliant and had not been seen in 2 months. She does not take her diuretics or use her compression stockings as instructed. She had noted worsening leg wounds that have gotten larger with skin breakdown over the last few weeks per their documentation. They did obtain CT angiogram of the abdomen/pelvis with bilateral lower extremity runoff that was obtained on 07/26/2024 at 23:29. The report had an impression of "80% stenosis involving the proximal right external iliac artery. 70% stenosis involving the mid right SFA with two-vessel runoff into the foot. The dorsalis pedis artery however occludes at the foot. 70% stenosis involving the distal left SFA. Patent two-vessel runoff into the foot via diminutive anterior and posterior tibial arteries. Dorsalis pedis artery occludes proximally. Medial and lateral plantar arteries are patent proximally." - EKG interpreted by myself showed normal sinus rhythm. Rate bradycardic at 42 bpm. QT 508. Noted to have significant artifact at baseline. - Laboratory workup interpreted by myself showed normal WBC; elevated INR (1.3); stable electrolytes; normal troponin; normal procalcitonin; normal CK - UA negative for infection - Patient empirically started on IV vancomycin and Zosyn. - VBG showed hypercarbia - CXR showed some mild pulmonary edema, per my interpretation. - Patient given 1g IV Tylenol for pain control. - CT PE negative for PE, but noted to have small right pleural effusion and airspace opacities in the right upper lobe which may be pneumonia. - CT abdomen/pelvis with IV contrast noted to have anasarca and large ascites. - Patient given 40 mg IV lasix for fluid overload. - Blood cultures obtained - Xray right ankle negative for free air. - Patient having difficulties getting out of bed to go to the bathroom, so Gould catheter was placed by nursing staff. - Discussion was had with case manager specialist about patient's case and need for admission - Hospitalist, Dr. Rodriguez, consulted for admission - [facility] ASSESSMENT AND PLAN: Diagnosis: diabetic foot infection; acute hypoxemic respiratory failure; nausea and vomiting; pulmonary edema; pneumonia Plan: admit Past Med/Surg History Problem List (Updated 07/31/24 @ 20:46 by Marta Lanier MD) Pneumonia (Acute) Pulmonary edema (Acute) Nausea & vomiting (Acute) Acute hypoxemic respiratory failure (Acute) Diabetic foot infection (Acute) Hypertension CAD (coronary artery disease) Dyslipidemia Persistent atrial fibrillation Neuroenteric cyst Depression with anxiety Acute respiratory failure with hypoxia Ex-smoker COPD with emphysema Chronic lower back pain Diabetes mellitus type 2 in obese Dermatitis Mediastinal lymphadenopathy Hypomagnesemia NSTEMI (non-ST elevated myocardial infarction) Hyperthyroidism Abnormal chest CT Neck pain Anticoagulant long-term use Rapid atrial fibrillation Elevated troponin (Acute) SOB (shortness of breath) (Acute) Degenerative arthritis of cervical spine Atrial fibrillation Chest pain Rapid atrial fibrillation (Acute) Surgical History No pertinent past surgical history Social History Smoking Status: Former smoker Tobacco Type: Cigarettes Hx Alcohol Use: No Hx Substance Use: No Preferred Language: Cymro Communication Ability: Effective Care Director Required: No Beliefs That Will Affect Care: Spiritual marital status: Single Current Living Situation: Significant Other Feels Safe at Home: Hesitant to Answer Assistive Devices: None Allergies Allergies Allergy/AdvReac Type Severity Reaction Status Date / Time ciprofloxacin [Cipro] Allergy Mild SHORTNESS Verified 07/31/24 20:15 OF BREATH miconazole Allergy Mild Rash Verified 07/31/24 20:15 empagliflozin Allergy Unknown Unknown Verified 07/31/24 20:15 [From Jardiance] metformin Allergy Unknown Unknown Verified 07/31/24 20:15 Home Meds Home Medications Medication Instructions Recorded Confirmed methimazole 10 mg tablet 10 mg PO QAM 07/20/22 07/31/24 sitagliptin phosphate 100 mg 100 mg PO QDB 07/20/22 07/31/24 tablet (Januvia) amiodarone 200 mg tablet 200 mg PO QAM 07/31/24 07/31/24 apixaban 5 mg tablet (Eliquis) 5 mg PO QAM 07/31/24 07/31/24 aspirin 81 mg tablet,delayed 81 mg PO QAM 07/31/24 07/31/24 release furosemide 40 mg tablet 40 mg PO BID 07/31/24 07/31/24 oxycodone 10 mg tablet 10 mg PO Q4 PRN Pain 07/31/24 07/31/24 pantoprazole 40 mg tablet,delayed 40 mg PO QAM 07/31/24 07/31/24 release potassium chloride 20 mEq 20 meq PO QAM 07/31/24 07/31/24 tablet,extended release(part/cryst) (Klor-Con M) sertraline 50 mg tablet (Zoloft) 50 mg PO DAILY PRN USES FOR ANXIETY 07/31/24 07/31/24 tiotropium bromide 1.25 2 puff inhalation DAILY PRN 07/31/24 07/31/24 mcg/actuation mist for inhalation Shortness Of Breath (Spiriva Respimat) Previous Rx's Medication Instructions Recorded metoprolol succinate 25 mg 25 mg PO BID #60 tabs 09/04/22 tablet,extended release 24 hr Results & Data (ED) Vital Signs Vital Signs - 24 hr 07/31/24 16:56 07/31/24 16:56 07/31/24 17:06 Temperature 36.6 C Temperature Source Oral Pulse Rate 45 L 48 L Pulse Rate [Apical] 42 L Pulse Rate from SpO2 Sensor Respiratory Rate 15 16 15 Respiratory Effort / Characteristics Non-Labored Spontaneous Non-Labored Spontaneous Respiratory Depth Normal Normal Respiratory Pattern Regular Regular Blood Pressure 118/62 Blood Pressure [Left Arm] 118/62 Blood Pressure Mean 80 Blood Pressure Mean [Left Arm] 80 Blood Pressure Position Semi-fowlers Blood Pressure Position [Left Arm] Semi-fowlers Pulse Oximetry 79 L 79 L 97 Oxygen Delivery Method Room Air Room Air Nasal Cannula Oxygen Flow Rate 6 Sepsis Recent Fever Within 48 Hours No Sepsis New/Unexplained Change in Mental Status No Sepsis Action Taken by Nursing Physician Notified 07/31/24 17:10 07/31/24 17:33 07/31/24 17:45 Temperature Temperature Source Pulse Rate 44 L Pulse Rate [Apical] Pulse Rate from SpO2 Sensor Respiratory Rate 15 Respiratory Effort / Characteristics Non-Labored Spontaneous Respiratory Depth Normal Respiratory Pattern Regular Blood Pressure 123/56 L Blood Pressure [Left Arm] Blood Pressure Mean 93 Blood Pressure Mean [Left Arm] Blood Pressure Position Blood Pressure Position [Left Arm] Pulse Oximetry 98 Oxygen Delivery Method Nasal Cannula Oxygen Flow Rate 4 Sepsis Recent Fever Within 48 Hours Sepsis New/Unexplained Change in Mental Status Sepsis Action Taken by Nursing 07/31/24 17:55 07/31/24 17:57 07/31/24 18:01 Temperature Temperature Source Pulse Rate 42 L Pulse Rate [Apical] 45 L Pulse Rate from SpO2 Sensor 42 L Respiratory Rate 10 L 13 Respiratory Effort / Characteristics Non-Labored Spontaneous Respiratory Depth Normal Respiratory Pattern Regular Blood Pressure 93/53 L Blood Pressure [Left Arm] 93/53 L Blood Pressure Mean 64 Blood Pressure Mean [Left Arm] 66 Blood Pressure Position Blood Pressure Position [Left Arm] Semi-fowlers Pulse Oximetry 100 100 Oxygen Delivery Method Nasal Cannula Nasal Cannula Oxygen Flow Rate 4 6 Sepsis Recent Fever Within 48 Hours Sepsis New/Unexplained Change in Mental Status Sepsis Action Taken by Nursing 07/31/24 18:01 07/31/24 18:06 07/31/24 18:09 Temperature Temperature Source Pulse Rate 59 L 40 L Pulse Rate [Apical] Pulse Rate from SpO2 Sensor Respiratory Rate 11 L 13 Respiratory Effort / Characteristics Respiratory Depth Respiratory Pattern Blood Pressure 93/53 L Blood Pressure [Left Arm] Blood Pressure Mean 64 Blood Pressure Mean [Left Arm] Blood Pressure Position Blood Pressure Position [Left Arm] Pulse Oximetry 97 99 Oxygen Delivery Method Oxygen Flow Rate Sepsis Recent Fever Within 48 Hours Sepsis New/Unexplained Change in Mental Status Sepsis Action Taken by Nursing 07/31/24 18:10 07/31/24 18:15 07/31/24 18:15 Temperature Temperature Source Pulse Rate Pulse Rate [Apical] 44 L Pulse Rate from SpO2 Sensor Respiratory Rate 12 Respiratory Effort / Characteristics Non-Labored Spontaneous Respiratory Depth Normal Respiratory Pattern Regular Blood Pressure 118/60 118/60 Blood Pressure [Left Arm] Blood Pressure Mean 95 95 Blood Pressure Mean [Left Arm] Blood Pressure Position Blood Pressure Position [Left Arm] Pulse Oximetry 98 Oxygen Delivery Method Nasal Cannula Oxygen Flow Rate 4 Sepsis Recent Fever Within 48 Hours Sepsis New/Unexplained Change in Mental Status Sepsis Action Taken by Nursing 07/31/24 18:18 07/31/24 18:25 07/31/24 18:27 Temperature Temperature Source Pulse Rate 42 L 42 L Pulse Rate [Apical] 48 L Pulse Rate from SpO2 Sensor 42 L Respiratory Rate 18 14 22 Respiratory Effort / Characteristics Respiratory Depth Normal Respiratory Pattern Blood Pressure Blood Pressure [Left Arm] Blood Pressure Mean Blood Pressure Mean [Left Arm] Blood Pressure Position Blood Pressure Position [Left Arm] Pulse Oximetry 100 98 Oxygen Delivery Method Nasal Cannula Oxygen Flow Rate 4 Sepsis Recent Fever Within 48 Hours Sepsis New/Unexplained Change in Mental Status Sepsis Action Taken by Nursing 07/31/24 18:30 07/31/24 18:45 07/31/24 18:45 Temperature Temperature Source Pulse Rate 52 L Pulse Rate [Apical] Pulse Rate from SpO2 Sensor 41 L Respiratory Rate 21 Respiratory Effort / Characteristics Respiratory Depth Respiratory Pattern Blood Pressure 109/51 L 109/51 L 107/59 L Blood Pressure [Left Arm] Blood Pressure Mean 62 70 70 Blood Pressure Mean [Left Arm] Blood Pressure Position Blood Pressure Position [Left Arm] Pulse Oximetry 100 Oxygen Delivery Method Oxygen Flow Rate Sepsis Recent Fever Within 48 Hours Sepsis New/Unexplained Change in Mental Status Sepsis Action Taken by Nursing 07/31/24 18:45 07/31/24 19:00 07/31/24 19:09 Temperature Temperature Source Pulse Rate 39 L Pulse Rate [Apical] 42 L Pulse Rate from SpO2 Sensor 38 L Respiratory Rate 12 20 Respiratory Effort / Characteristics Spontaneous Respiratory Depth Respiratory Pattern Regular Blood Pressure 107/59 L Blood Pressure [Left Arm] 105/49 L Blood Pressure Mean 70 Blood Pressure Mean [Left Arm] 67 Blood Pressure Position Blood Pressure Position [Left Arm] Pulse Oximetry 100 99 Oxygen Delivery Method Nasal Cannula Oxygen Flow Rate 4 Sepsis Recent Fever Within 48 Hours Sepsis New/Unexplained Change in Mental Status Sepsis Action Taken by Nursing 07/31/24 19:15 07/31/24 19:30 07/31/24 19:31 Temperature Temperature Source Pulse Rate 57 L 39 L Pulse Rate [Apical] Pulse Rate from SpO2 Sensor 38 L 39 L Respiratory Rate 18 16 Respiratory Effort / Characteristics Respiratory Depth Respiratory Pattern Blood Pressure 92/47 L Blood Pressure [Left Arm] Blood Pressure Mean 56 Blood Pressure Mean [Left Arm] Blood Pressure Position Blood Pressure Position [Left Arm] Pulse Oximetry 98 90 Oxygen Delivery Method Oxygen Flow Rate Sepsis Recent Fever Within 48 Hours Sepsis New/Unexplained Change in Mental Status Sepsis Action Taken by Nursing 07/31/24 19:33 07/31/24 19:36 07/31/24 19:46 Temperature Temperature Source Pulse Rate 39 L 59 L Pulse Rate [Apical] Pulse Rate from SpO2 Sensor 39 L 39 L Respiratory Rate 14 13 Respiratory Effort / Characteristics Respiratory Depth Respiratory Pattern Blood Pressure 88/53 L Blood Pressure [Left Arm] Blood Pressure Mean 64 Blood Pressure Mean [Left Arm] Blood Pressure Position Blood Pressure Position [Left Arm] Pulse Oximetry Oxygen Delivery Method Oxygen Flow Rate Sepsis Recent Fever Within 48 Hours Sepsis New/Unexplained Change in Mental Status Sepsis Action Taken by Nursing 07/31/24 19:46 07/31/24 19:51 07/31/24 19:53 Temperature Temperature Source Pulse Rate 40 L Pulse Rate [Apical] 56 L Pulse Rate from SpO2 Sensor Respiratory Rate 17 18 Respiratory Effort / Characteristics Respiratory Depth Respiratory Pattern Blood Pressure 88/53 L Blood Pressure [Left Arm] 106/50 L Blood Pressure Mean 64 Blood Pressure Mean [Left Arm] 68 Blood Pressure Position Blood Pressure Position [Left Arm] Pulse Oximetry 95 Oxygen Delivery Method Nasal Cannula Oxygen Flow Rate 4 Sepsis Recent Fever Within 48 Hours Sepsis New/Unexplained Change in Mental Status Sepsis Action Taken by Nursing 07/31/24 19:53 07/31/24 19:53 07/31/24 19:53 Temperature Temperature Source Pulse Rate Pulse Rate [Apical] Pulse Rate from SpO2 Sensor Respiratory Rate Respiratory Effort / Characteristics Respiratory Depth Respiratory Pattern Blood Pressure 106/50 L 106/50 L 106/50 L Blood Pressure [Left Arm] Blood Pressure Mean 65 65 65 Blood Pressure Mean [Left Arm] Blood Pressure Position Blood Pressure Position [Left Arm] Pulse Oximetry Oxygen Delivery Method Oxygen Flow Rate Sepsis Recent Fever Within 48 Hours Sepsis New/Unexplained Change in Mental Status Sepsis Action Taken by Nursing 07/31/24 19:54 07/31/24 20:00 07/31/24 20:00 Temperature Temperature Source Pulse Rate 41 L Pulse Rate [Apical] Pulse Rate from SpO2 Sensor 42 L Respiratory Rate 22 Respiratory Effort / Characteristics Respiratory Depth Respiratory Pattern Blood Pressure 111/63 111/63 Blood Pressure [Left Arm] Blood Pressure Mean 90 90 Blood Pressure Mean [Left Arm] Blood Pressure Position Blood Pressure Position [Left Arm] Pulse Oximetry 95 Oxygen Delivery Method Nasal Cannula Oxygen Flow Rate 4 Sepsis Recent Fever Within 48 Hours Sepsis New/Unexplained Change in Mental Status Sepsis Action Taken by Nursing 07/31/24 20:03 07/31/24 20:06 07/31/24 20:15 Temperature Temperature Source Pulse Rate 39 L Pulse Rate [Apical] Pulse Rate from SpO2 Sensor Respiratory Rate 20 Respiratory Effort / Characteristics Respiratory Depth Respiratory Pattern Blood Pressure 104/52 L Blood Pressure [Left Arm] 111/63 Blood Pressure Mean 74 Blood Pressure Mean [Left Arm] 79 Blood Pressure Position Blood Pressure Position [Left Arm] Pulse Oximetry 100 Oxygen Delivery Method Oxygen Flow Rate Sepsis Recent Fever Within 48 Hours Sepsis New/Unexplained Change in Mental Status Sepsis Action Taken by Nursing 07/31/24 20:18 Temperature Temperature Source Pulse Rate 39 L Pulse Rate [Apical] Pulse Rate from SpO2 Sensor 39 L Respiratory Rate 16 Respiratory Effort / Characteristics Respiratory Depth Respiratory Pattern Blood Pressure Blood Pressure [Left Arm] Blood Pressure Mean Blood Pressure Mean [Left Arm] Blood Pressure Position Blood Pressure Position [Left Arm] Pulse Oximetry 100 Oxygen Delivery Method Oxygen Flow Rate Sepsis Recent Fever Within 48 Hours Sepsis New/Unexplained Change in Mental Status Sepsis Action Taken by Nursing Laboratory Data 07/31/24 17:15 07/31/24 17:15 Lab Results 07/31/24 07/31/24 07/31/24 Range/Units 17:15 17:20 18:48 WBC 9.55 (4.8-10.8) K/ul RBC 5.49 H (4.20-5.40) M/uL Hgb 13.9 (12.0-16.0) g/dl Hct 46.7 (37.0-47.0) % MCV 85.1 (80.0-100.0) fL MCH 25.3 (25.0-34.0) pg MCHC 29.8 L (32.0-36.0) g/dL RDW Std Deviation 62.1 H (36.4-46.3) fL RDW Coeff of Rasheed 21.1 H (11.5-14.5) % Plt Count 437 H (130-400) K/uL MPV 10.2 (9.4-12.4) fL Immature Gran % (Auto) 0.5 % Neut % (Auto) 87.0 % Lymph % (Auto) 6.4 % [place] % (Auto) 4.8 % Eos % (Auto) 1.0 % Baso % (Auto) 0.3 % Neut # (Auto) 8.30 H (1.40-6.50) K/uL Lymph # (Auto) 0.61 L (1.20-3.40) K/uL [place] # (Auto) 0.46 (0.11-0.59) K/uL Eos # (Auto) 0.10 (0.00-0.50) K/uL Baso # (Auto) 0.03 (0.00-0.20) K/uL Immature Gran # (Auto) 0.05 (0.01-0.20) K/uL Toxic Vacuolation 1+ Anisocytosis Present PT 13.5 H (9.0-12.0) Seconds INR 1.3 H (0.9-1.1) VBG pH 7.40 (7.36-7.41) VBG pCO2 60 H (38-50) mmHg VBG pO2 < 20 mmHg VBG HCO3 37 mmol/L VBG O2 Saturation < 60.0 % VBG Base Excess 10.0 mEq/L Sodium 137 (136-145) mmol/L Potassium 4.7 (3.5-5.1) mmol/L Chloride 101 (98-107) mmol/L Carbon Dioxide 32 (21-32) mmol/L Anion Gap 4 (3-11) BUN 20 (6-23) mg/dl Creatinine 0.86 (0.6-1.2) mg/dl Est Cr Clr Drug Dosing 62.7 ml/min eGFR 74.00 BUN/Creatinine Ratio 23.3 H (10-20) Glucose 86 (70-99(Fasting)) mg/dl Lactate 1.2 (0.4-2.0) mmol/L Calcium 8.1 L (8.6-10.3) mg/dl Magnesium 1.9 (1.7-2.4) mg/dl Total Bilirubin 0.6 (0.2-1.0) mg/dl Direct Bilirubin TNP 0.2 AST 14 (13-39) U/L ALT 6 L (7-52) U/L Alkaline Phosphatase 104 (34-104) U/L Total Creatine Kinase 25 L (26-192) U/L Troponin I High Sens 8.2 (0-14) pg/ml Total Protein 6.7 (6.0-8.3) gm/dl Albumin 2.8 L (3.4-5.0) gm/dl Procalcitonin 0.04 (0-0.5) ng/ml Urine Color Dark Yellow Urine Appearance Cloudy A (Clear) Urine pH 5.5 (4.5-7.5) Ur Specific [place] 1.024 (1.000-1.030) Urine Protein 1+ H (Negative) Urine Glucose (UA) Negative (Negative) Urine Ketones Trace H (Negative) Urine Blood Negative (Negative) Urine Nitrite Negative (Negative) Urine Bilirubin 1+ H (Negative) Urine Urobilinogen Negative (Negative) Ur Leukocyte Esterase Negative (Negative) Urine WBC (Auto) 0-5 (0-5) /hpf Urine RBC (Auto) 3-5 H (0-2) /hpf U Hyaline Cast (Auto) 6-10 H (0-2) /lpf U Epithel Cells (Auto) 3-5 H (0-2) /hpf Urine Bacteria (Auto) None Seen (None Seen) Administered Medications Discontinued Medications Furosemide (Furosemide 40 Mg/4 Ml Vial) 40 mg IV ONE ONE Stop: 07/31/24 19:32 Last Admin: 07/31/24 19:56 Dose: 40 mg Documented By: NOEMY Acetaminophen (Ofirmev) 1,000 mg in 100 mls @ 400 mls/hr IV NOW STA Stop: 07/31/24 18:22 Last Infusion: 07/31/24 18:56 Dose: Infused Documented By: Admin: 07/31/24 18:21 Dose: 400 mls/hr Documented By: NOEMY Ioversol (Optiray 320 125ml) 119 ml IV ONCE ONE Stop: 07/31/24 19:02 Last Admin: 07/31/24 19:01 Dose: 119 ml Documented By: EDK Imaging Data Radiologist's Impression: Abdomen/Pelvis CT 07/31/24 17:10 CT abd pelvis IV con only CLINICAL HISTORY: vomiting TECHNIQUE: Helical axial images of the abdomen and pelvis were obtained and displayed. Automated dose lowering techniques and/or adjustment according to patient size were utilized for this exam. This exam was performed with intravenous contrast. COMPARISON: None available at the time of this dictation. FINDINGS: Lower chest: For findings above the diaphragm, please see CT chest performed same day. Liver: Unremarkable. No focal lesions are seen. Gallbladder and biliary tree: Layering hyperdensities in the gallbladder which may represent vicarious excretion of contrast versus sludge No intra- or extrahepatic biliary ductal dilation. Pancreas: Unremarkable, no focal lesions. Spleen: Unremarkable. Adrenals: Unremarkable. Kidneys and ureters: Unremarkable. Bladder: Gould catheter is seen. Reproductive organs: Unremarkable. Bowel: A hiatal hernia is seen. Lymph nodes Retroperitoneal: Unremarkable. Pelvic: Unremarkable. Mesenteric: Subcentimeter lymph nodes are noted. Peritoneum: Moderate to large ascites is seen. Vessels: Atherosclerotic calcifications are seen. Abdominal wall: Mild wall edema is seen. Bones: Unremarkable. IMPRESSION: There is anasarca and moderate to large ascites which may reflect volume overload in this patient with a right pleural effusion as well. Otherwise no acute abnormalities are seen. ACT 112: Negative or not required by law. Electronically signed by: Anthony Rivas M.D. 07/31/2024 7:27 PM Ankle X-Ray 07/31/24 17:10 XR ankle RT min 3V routine CLINICAL HISTORY: R ankle wound TECHNIQUE: 3 views of the right ankle were obtained. Comparison: None available at the time of this dictation. FINDINGS: No fractures are present. The joint spaces are well preserved. Soft tissue swelling is seen about the ankle. IMPRESSION: Soft tissue swelling is seen without evidence of underlying bony abnormality. ACT 112: Negative or not required by law. Electronically signed by: Anthony Rivas M.D. 07/31/2024 6:33 PM Chest X-Ray 07/31/24 17:10 XR chest 1V portable CLINICAL HISTORY: Sepsis TECHNIQUE: Single frontal radiograph of the chest was obtained. Comparison: Comparison is made to chest radiograph 07/19/2022 FINDINGS: No lines and tubes are seen. Calcified aortic knob is seen. Prominence and cephalization of the vasculature is seen. No evidence of pleural effusion or pneumothorax. IMPRESSION: Cardiomegaly and mild pulmonary edema. ACT 112: Negative or not required by law. Electronically signed by: Anthony Rivas M.D. 07/31/2024 5:56 PM Chest CTA 07/31/24 18:36 CT angio chest PE protocol CLINICAL HISTORY: PE; hypoxia TECHNIQUE: Multidetector row helical CT of the chest was performed with angiographic protocol. Coronal and sagittal reformations were obtained. Coronal and sagittal MIPS were obtained from the axial data set and were submitted for review. Automated dose lowering techniques and/or adjustment according to patient size were utilized for this exam. CT DOSE: 1825.15 mGy.cm Comparison: Comparison is made to CT chest 07/19/2022 FINDINGS: Lungs and pleura: Small right pleural effusion is seen. Emphysema is noted. There is mild airspace density in the base of the right upper lobe. Heart and pericardium: Heart size is normal. No pericardial effusion. Vessels: No evidence of pulmonary embolism. Mediastinum and leonard: Right lower paratracheal lymph node measuring up to 11 mm. Additional smaller nodes are seen. Chest wall and lower neck: Small thyroid nodules are noted which do not require follow-up by ACR criteria. Abdomen: For findings below the diaphragm, please refer to CT of the abdomen dated the same. Bones: Degenerative changes in the thoracic spine. IMPRESSION: 1. No pulmonary embolus. 2. Emphysema with possible airspace opacities in the right upper lobe, this may represent pneumonia with reactive lymph nodes. 3. Small right pleural effusion with underlying atelectasis ACT 112: Negative or not required by law. Electronically signed by: Anthony Rivas M.D. 07/31/2024 7:19 PM Discharge Plan Visit Data Chief Complaint: Illness Stated Complaint: ILLNESS ED Provider: Marta Lanier Discharge Problem: Diabetic foot infection, Acute hypoxemic respiratory failure, Nausea & vomiting, Pulmonary edema, Pneumonia Forms Stand Alone Forms: My [facility] Dr. Scribbles Prescriptions Prescriptions: No Action metoprolol succinate 25 mg tablet extended release 24 hr 25 mg PO BID Qty: 60 11RF Januvia 100 mg tablet 100 mg PO QDB Rx Instructions: TAKE WITH FOOD methimazole 10 mg tablet 10 mg PO QAM potassium chloride [Klor-Con M20] 20 mEq tablet,ER particles/crystals 20 meq PO QAM amiodarone 200 mg tablet 200 mg PO QAM oxycodone 10 mg tablet 10 mg PO Q4 PRN (Reason: Pain) furosemide 40 mg tablet 40 mg PO BID Spiriva Respimat 1.25 mcg/actuation mist 2 puff INHALATION DAILY PRN (Reason: Shortness Of Breath) Rx Instructions: ORDERED ROUTINE BUT PATIENT ONLY USE NEEDED aspirin [Aspirin Low-Strength] 81 mg Tablet,Delayed Release (Dr/Ec) 81 mg PO QAM pantoprazole 40 mg tablet,delayed release (DR/EC) 40 mg PO QAM Eliquis 5 mg tablet 5 mg PO QAM Rx Instructions: ORDERED BID BUT PT ONLY TAKES IN THE MORNING..STATES 2ND PILL OF THE DAY MAKES HER WAY TOO COLD sertraline [Zoloft] 50 mg tablet 50 mg PO DAILY PRN (Reason: USES FOR ANXIETY) Rx Instructions: ORDERED ROUTINE BUT PT ONLY USES FOR ANXIETY Referrals Referrals: Zach Castelan MD [Primary Care Provider] -
[2024-07-31 17:42] LABS: Basophils # (auto) 0.03 K/uL (0.00-0.20); Basophils % (auto) 0.3 %; Hematocrit (blood only) 46.7 % (37.0-47.0); Hemoglobin 13.9 g/dl (12.0-16.0); Immature Granulocytes # (auto) 0.05 K/uL (0.01-0.20); Immature Granulocytes % (auto) 0.5 %; Lymphocytes # (auto) 0.61 K/uL (1.20-3.40); Lymphocytes % (auto) 6.4 %; Mean Corpuscular Hemoglobin 25.3 pg (25.0-34.0); Mean Corpuscular Hgb Conc 29.8 g/dL (32.0-36.0); Mean Corpuscular Volume 85.1 fL (80.0-100.0); Mean Platelet Volume 10.2 fL (9.4-12.4); Monocytes # (auto) 0.46 K/uL (0.11-0.59); Monocytes % (auto) 4.8 %; Platelet Count 437 K/uL (130-400); RDW Coefficient of Variation 21.1 % (11.5-14.5); RDW Standard Deviation 62.1 fL (36.4-46.3); Red Blood Count 5.49 M/uL (4.20-5.40); White Blood Count 9.55 K/ul (4.8-10.8)
[2024-07-31 17:58] LABS: Anisocytosis Present; Toxic Vacuolation 1+
--- NOTE | 2024-07-31 17:58 | XRay Report ---
XR chest 1V portable CLINICAL HISTORY: Sepsis TECHNIQUE: Single frontal radiograph of the chest was obtained. Comparison: Comparison is made to chest radiograph 07/19/2022 FINDINGS: No lines and tubes are seen. Calcified aortic knob is seen. Prominence and cephalization of the vascu lature is seen. No evidence of pleural effusion or pneumothorax. IMPRESSION: Cardiomegaly and mild pulmonary edema. ACT 112: Negative or not required by law. Electronically signed by: Anthony Rivas M.D. 07/31/2024 5:56 PM
[2024-07-31 18:05] LABS: Appearance Urine Cloudy (Clear); Bacteria Urine Automated None Seen (None Seen); Bilirubin Urine 1+ (Negative); Blood Urine Negative (Negative); Color Urine Dark Yellow; Glucose Urine UA Negative (Negative); Ketones Urine Trace (Negative); Leukocyte Esterase Urine Negative (Negative); Nitrite Urine Negative (Negative); Protein Urine 1+ (Negative); Specific Gravity Urine 1.024 (1.000-1.030); Urobilinogen Urine Negative (Negative); WBC Urine Automated 0-5 /hpf (0-5); pH Urine 5.5 (4.5-7.5)
[2024-07-31 18:06] LABS: Alanine Aminotransferase 6 U/L (7-52); Albumin Level 2.8 gm/dl (3.4-5.0); Alkaline Phosphatase 104 U/L (34-104); Anion Gap 4 (3-11); Aspartate Aminotransferase 14 U/L (13-39); BUN Creatinine Ratio 23.3 (10-20); Bilirubin,Total 0.6 mg/dl (0.2-1.0); Blood Urea Nitrogen 20 mg/dl (6-23); Calcium 8.1 mg/dl (8.6-10.3); Carbon Dioxide 32 mmol/L (21-32); Chloride 101 mmol/L (98-107); Creatine Kinase 25 U/L (26-192); Creatinine Clr Calc Pharmacy 62.7 ml/min; Glucose 86 mg/dl (70-99(Fasting)); Magnesium 1.9 mg/dl (1.7-2.4); Potassium 4.7 mmol/L (3.5-5.1); Sodium 137 mmol/L (136-145); Total Protein 6.7 gm/dl (6.0-8.3); Troponin I High Sensitivity 8.2 pg/ml (0-14)
[2024-07-31 18:07] LABS: INR 1.3 (0.9-1.1); Prothrombin Time 13.5 Seconds (9.0-12.0)
[2024-07-31] MEDS: ACETAMINOPHEN 1,000 MG/100 ML VIAL IV STA (18:21)
--- NOTE | 2024-07-31 18:35 | XRay Report ---
XR ankle RT min 3V routine CLINICAL HISTORY: R ankle wound TECHNIQUE: 3 views of the right ankle were obtained. Comparison: None available at the time of this dictation. FINDINGS: No fractures are present. The joint spaces are well preserved. Soft tissue swelling is seen about the ankle. IMPRESSION: Soft tissue swelling is seen without evidence of underlying bony abnormality. ACT 112: Negative or not required by law. Electronically signed by: Anthony Rivas M.D. 07/31/2024 6:33 PM
[2024-07-31 18:58] LABS: HCO3 VBG 37 mmol/L; Oxygen Saturation VBG < 60.0 %; PCO2 VBG 60 mmHg (38-50); PO2 VBG < 20 mmHg
[2024-07-31] MEDS: OPTIRAY 320 125ml IV ONE (19:01)
--- NOTE | 2024-07-31 19:22 | CT Scan Report ---
CT angio chest PE protocol CLINICAL HISTORY: PE; hypoxia TECHNIQUE: Multidetector row helical CT of the chest was performed with angiographic protocol. Strickland l and sagittal reformations were obtained. Coronal and sagittal MIPS were obtained from the axial belle a set and were submitted for review. Automated dose lowering techniques and/or adjustment according to patient size were utilized for this exam. CT DOSE: 1825.15 mGy.cm Comparison: Comparison is made to CT chest 07/19/2022 FINDINGS: Lungs and pleura: Small right pleural effusion is seen. Emphysema is noted. There is mild airspace de nsity in the base of the right upper lobe. Heart and pericardium: Heart size is normal. No pericardial effusion. Vessels: No evidence of pulmonary embolism. Mediastinum and leonard: Right lower paratracheal lymph node measuring up to 11 mm. Additional smaller n odes are seen. Chest wall and lower neck: Small thyroid nodules are noted which do not require follow-up by ACR pretty [place]. Abdomen: For findings below the diaphragm, please refer to CT of the abdomen dated the same. Bones: Degenerative changes in the thoracic spine. IMPRESSION: 1. No pulmonary embolus. 2. Emphysema with possible airspace opacities in the right upper lobe, this may represent pneumonia with reactive lymph nodes. 3. Small right pleural effusion with underlying atelectasis ACT 112: Negative or not required by law. Electronically signed by: Anthony Rivas M.D. 07/31/2024 7:19 PM
--- NOTE | 2024-07-31 19:28 | CT Scan Report ---
CT abd pelvis IV con only CLINICAL HISTORY: vomiting TECHNIQUE: Helical axial images of the abdomen and pelvis were obtained and displayed. Automated dose lowering techniques and/or adjustment according to patient size were utilized for this exam. This e xam was performed with intravenous contrast. COMPARISON: None available at the time of this dictation. FINDINGS: Lower chest: For findings above the diaphragm, please see CT chest performed same day. Liver: Unremarkable. No focal lesions are seen. Gallbladder and biliary tree: Layering hyperdensities in the gallbladder which may represent vicariou s excretion of contrast versus sludge No intra- or extrahepatic biliary ductal dilation. Pancreas: Unremarkable, no focal lesions. Spleen: Unremarkable. Adrenals: Unremarkable. Kidneys and ureters: Unremarkable. Bladder: Gould catheter is seen. Reproductive organs: Unremarkable. Bowel: A hiatal hernia is seen. Lymph nodes Retroperitoneal: Unremarkable. Pelvic: Unremarkable. Mesenteric: Subcentimeter lymph nodes are noted. Peritoneum: Moderate to large ascites is seen. Vessels: Atherosclerotic calcifications are seen. Abdominal wall: Mild wall edema is seen. Bones: Unremarkable. IMPRESSION: There is anasarca and moderate to large ascites which may reflect volume overload in this patient wit h a right pleural effusion as well. Otherwise no acute abnormalities are seen. ACT 112: Negative or not required by law. Electronically signed by: Anthony Rivas M.D. 07/31/2024 7:27 PM
[2024-07-31] MEDS: FUROSEMIDE 40 MG/4 ML VIAL IV ONE (19:56)
[2024-07-31] MEDS ORDERED: VANCOMYCIN CONSULT ACTIVE PRN ×2 (20:35→23:18)
[2024-07-31] MEDS: fentaNYL citrate PF 100 MCG/2 ML VIAL IV STA (20:48)
[2024-07-31] MEDS: ALBUMIN 25% 25 GM/100 ML VIAL IV SCH (20:54)
[2024-07-31] MEDS: PIPERACILLIN/TAZOBACTAM 4.5 GM/100 ML BAG IV ONE (21:02)
--- NOTE | 2024-07-31 21:10 | History & Physical Report ---
Date of Service July 31, 2024 Assessment & Plan (1) Anasarca: (2) Pulmonary edema: (3) Nausea & vomiting: (4) Acute hypoxemic respiratory failure: (5) Diabetic foot infection: (6) CAD (coronary artery disease): (7) Bradycardia with 31-40 beats per minute: (8) Dyslipidemia: (9) Persistent atrial fibrillation: (10) Tachy-reema syndrome: (11) Depression with anxiety: (12) Diabetes mellitus type 2 in obese: (13) Hyperthyroidism: (14) Hypertension: (15) Anticoagulant long-term use: (16) Sacral decubitus ulcer, stage II: Plan Bilateral lower extremity cellulitis/right lower extremity and foot diabetic infection/multiple sacral stage II decubitus ulcers- Continue vancomycin IV and Zosyn IV begun in the ED Consult to wound care Anasarca/CHF/PAF/sinus bradycardia/tachybradycardia syndrome/history of A-fib with RVR- The patient will be admitted to telemetry for serial cardiac enzymes, serial EKG's, cardiac rhythm monitoring and a 2-D echocardiogram with Dopplers. Heart rate in upper 30s to lower 40s For tonight, will hold amiodarone 200 mg every morning, metoprolol succinate 25 mg p.o. twice daily, and furosemide 40 mg p.o. twice daily Doubt that patient is compliant with medication regimen Patient has not seen Dr. Tim Farr since 09/06/2022. She was seen at [facility] on 04/21/2023 with the following recommendations: Eliquis 5 mg p.o. twice daily, metoprolol succinate 25 mg p.o. twice daily and amiodarone at 100 mg p.o. twice daily. Will consult cardiology, and they can discuss with patient whether a pacer is an option for her. Patient sits around a lot, does not move a lot due to severe fatigue, which may or may not be associated/due to her significant bradycardia Patient did receive furosemide 40 mg IV from the ED, however, her systolic blood pressure has been in the upper 80s to lower 90s. Further diuretics have been held, and I did give albumin 50 g IV to help maintain pressure in the mid 90s Most recent echocardiogram on 07/20/2022 with ejection fraction 60-65% Cardiac catheterization on 07/20/2022 for NSTEMI showed multivessel CAD, with medical management suggested Diabetes mellitus- Hold [place] Placed on Accu-Cheks with NovoLog SSI Check hemoglobin A1c Hyperthyroidism- Continue methimazole Check a TSH Chronic pain syndrome- Patient takes oxycodone 10 mg every 4 hours as needed Her blood pressure will not tolerate much of a dose Will give a single 5 mg p.o. dose now at 6:30 AM Disposition: I did speak with patient, that we will get PT/OT consults, and she reports that she would except going to inpatient rehab following admission. She does not look like she should be going back to her current living situation for now History of Present Illness Chief Complaint: The patient presents to the emergency department with multiple issues. She began to develop abdominal pain, nausea and vomiting this afternoon, and called the EMS, brought the patient to the emergency department for assessment. EMS reports that when they came to her residence, she was found in her recliner, covered in urine and feces. She had recently been admitted to [facility], on July 26, however, reportedly left AGAINST MEDICAL ADVICE. The patient's friend reports that the patient has not gotten out of her recliner for at least 24 hours. The patient reports that she has been too weak to get out of her recliner Primary Care Provider: Zach Castelan The patient is a 69-year-old female with a past medical history including diabetic foot infection, bilateral lower extremity cellulitis, hypertension, CAD, persistent atrial fibrillation, significant bradycardia, dyslipidemia, depression with anxiety, chronic respiratory failure with hypoxia, diabetes mellitus type 2,, hyperparathyroidism, long-term anticoagulant use, and history of atrial fibrillation with RVR. She presents to the emergency department via EMS as noted above. Active medical issues at this time include sinus bradycardia with heart rate in the upper 30s to low 40s, significant bilateral lower extremity infections, right greater than left. She is also noted to have multiple stage II pressure ulcers to sacrum and inferior gluteal folds. Right anterior ankle and upper foot with open wounds, with necrotic tissue present. Allergies Allergy/AdvReac Type Severity Reaction Status Date / Time ciprofloxacin [Cipro] Allergy Mild SHORTNESS Verified 07/31/24 20:15 OF BREATH miconazole Allergy Mild Rash Verified 07/31/24 20:15 empagliflozin Allergy Unknown Unknown Verified 07/31/24 20:15 [From Jardiance] metformin Allergy Unknown Unknown Verified 07/31/24 20:15 Home Medications Medication Instructions Recorded Confirmed Type methimazole 10 mg tablet 10 mg PO QAM 07/20/22 07/31/24 History sitagliptin phosphate 100 mg 100 mg PO QDB 07/20/22 07/31/24 History tablet (Januvia) metoprolol succinate 25 mg 25 mg PO BID #60 tabs 09/04/22 07/31/24 Rx tablet,extended release 24 hr amiodarone 200 mg tablet 200 mg PO QAM 07/31/24 07/31/24 History apixaban 5 mg tablet (Eliquis) 5 mg PO QAM 07/31/24 07/31/24 History aspirin 81 mg tablet,delayed 81 mg PO QAM 07/31/24 07/31/24 History release furosemide 40 mg tablet 40 mg PO BID 07/31/24 07/31/24 History oxycodone 10 mg tablet 10 mg PO Q4 PRN Pain 07/31/24 07/31/24 History pantoprazole 40 mg tablet,delayed 40 mg PO QAM 07/31/24 07/31/24 History release potassium chloride 20 mEq 20 meq PO QAM 07/31/24 07/31/24 History tablet,extended release(part/cryst) (Klor-Con M) sertraline 50 mg tablet (Zoloft) 50 mg PO DAILY PRN USES FOR ANXIETY 07/31/24 07/31/24 History tiotropium bromide 1.25 2 puff inhalation DAILY PRN 07/31/24 07/31/24 History mcg/actuation mist for inhalation Shortness Of Breath (Spiriva Respimat) Past Med/Surg History Problem List (Updated 08/01/24 @ 06:11 by Ramon Rodriguez MD) Sacral decubitus ulcer, stage II Tachy-reema syndrome Bradycardia with 31-40 beats per minute Anasarca Pneumonia (Acute) Pulmonary edema (Acute) Nausea & vomiting (Acute) Acute hypoxemic respiratory failure (Acute) Diabetic foot infection (Acute) Hypertension CAD (coronary artery disease) Dyslipidemia Persistent atrial fibrillation Neuroenteric cyst Depression with anxiety Acute respiratory failure with hypoxia Ex-smoker COPD with emphysema Chronic lower back pain Diabetes mellitus type 2 in obese Dermatitis Mediastinal lymphadenopathy Hypomagnesemia NSTEMI (non-ST elevated myocardial infarction) Hyperthyroidism Abnormal chest CT Neck pain Anticoagulant long-term use Rapid atrial fibrillation Elevated troponin (Acute) SOB (shortness of breath) (Acute) Degenerative arthritis of cervical spine Atrial fibrillation Chest pain Rapid atrial fibrillation (Acute) Surgical History No pertinent past surgical history Social History Smoking Status: Former smoker Tobacco Type: Cigarettes Smoking End Date: tamia >10 years ago; Second Hand Exposure: No; Tobacco Cessation Education Requested by Patient: No Hx Alcohol Use: No Hx Substance Use: No Preferred Language: Vietnamese Communication Ability: Effective Muffler Mechanic Required: No Beliefs That Will Affect Care: None marital status: Single Current Living Situation: Significant Other Current Living Situation Comment: Lives at home with Cody Other Information That Helps Us Care for You: No Feels Safe at Home: Yes Safety Concerns: Feels Safe At This Time Assistive Devices: Glasses Review of Systems Review of Systems: The patient denies chest pain, palpitations, shortness of breath, dyspnea on exertion, cough, sore throat, fevers, chills, sweats, blood in urine or stool, dysuria, urinary frequency or urgency, loss of consciousness, focal or generalized weakness, numbness or tingling in arms, generalized arthralgias or myalgias, back or neck pain, or night sweats. The review of systems is otherwise negative other than for that already noted above, and at least 10 systems have been reviewed. Physical Exam Physical Exam: The patient is awake, lethargic, unkempt, normocephalic and atraumatic, lying in bed and in no acute distress. HEENT--PERRL, EOMI, mucous membranes and oropharynx dry. Neck--supple. No JVD. No bruits. Thyroid normal, trachea midline, no adenopathy. Heart--significant bradycardia. Occasional premature contractions. No murmurs, rubs or gallops. Lungs--clear bilaterally, no respiratory distress, no accessory muscle use. Abdomen--normal bowel sounds and soft. Nontender. Nondistended Extremities--bilateral lower extremity 2+ pitting edema. Right anterior ankle and upper foot with open wounds, with centralized necrotic tissue and surrounding erythema. Left lower extremity with mild erythema. Body wall and upper extremity mild pitting edema. Dermatologic--as above. Back with stage II pressure ulcers to sacrum and inferior gluteal folds Neurologic--cranial nerves II through XII grossly intact. Rheumatologic--normal range of motion. Psychiatric--normal affect. Results & Data Results & Data Vital Signs (Past 12 Hours) Vital Signs Temp Pulse Pulse Resp BP BP Pulse Ox 07/31/24 20:18 39 L 16 100 07/31/24 20:15 104/52 L 07/31/24 20:06 39 L 20 100 07/31/24 20:03 111/63 07/31/24 20:00 111/63 07/31/24 20:00 111/63 07/31/24 19:54 41 L 22 95 07/31/24 19:53 106/50 L 07/31/24 19:53 106/50 L 07/31/24 19:53 106/50 L 07/31/24 19:53 56 L 18 106/50 L 95 07/31/24 19:51 40 L 17 07/31/24 19:46 88/53 L 07/31/24 19:46 88/53 L 07/31/24 19:36 59 L 13 07/31/24 19:33 39 L 14 07/31/24 19:31 92/47 L 07/31/24 19:30 39 L 16 90 07/31/24 19:15 57 L 18 98 07/31/24 19:09 39 L 20 99 07/31/24 19:00 42 L 12 105/49 L 100 07/31/24 18:45 107/59 L 07/31/24 18:45 107/59 L 07/31/24 18:45 52 L 21 109/51 L 100 07/31/24 18:30 109/51 L 07/31/24 18:27 42 L 22 07/31/24 18:25 48 L 14 98 07/31/24 18:18 42 L 18 100 07/31/24 18:15 118/60 07/31/24 18:15 118/60 07/31/24 18:10 44 L 12 98 07/31/24 18:09 40 L 13 99 07/31/24 18:06 59 L 11 L 97 07/31/24 18:01 93/53 L 07/31/24 18:01 93/53 L 07/31/24 17:57 42 L 13 100 07/31/24 17:55 45 L 10 L 93/53 L 100 07/31/24 17:45 123/56 L 07/31/24 17:33 44 L 07/31/24 17:10 15 98 07/31/24 17:06 48 L 15 97 07/31/24 16:56 42 L 16 118/62 79 L 07/31/24 16:56 36.6 C 45 L 15 118/62 79 L O2 Del Method O2 Flow Rate 07/31/24 20:18 07/31/24 20:15 07/31/24 20:06 07/31/24 20:03 07/31/24 20:00 07/31/24 20:00 07/31/24 19:54 Nasal Cannula 4 07/31/24 19:53 07/31/24 19:53 07/31/24 19:53 07/31/24 19:53 Nasal Cannula 4 07/31/24 19:51 07/31/24 19:46 07/31/24 19:46 07/31/24 19:36 07/31/24 19:33 07/31/24 19:31 07/31/24 19:30 07/31/24 19:15 07/31/24 19:09 07/31/24 19:00 Nasal Cannula 4 07/31/24 18:45 07/31/24 18:45 07/31/24 18:45 07/31/24 18:30 07/31/24 18:27 07/31/24 18:25 Nasal Cannula 4 07/31/24 18:18 07/31/24 18:15 07/31/24 18:15 07/31/24 18:10 Nasal Cannula 4 07/31/24 18:09 07/31/24 18:06 07/31/24 18:01 07/31/24 18:01 07/31/24 17:57 Nasal Cannula 6 07/31/24 17:55 Nasal Cannula 4 07/31/24 17:45 07/31/24 17:33 07/31/24 17:10 Nasal Cannula 4 07/31/24 17:06 Nasal Cannula 6 07/31/24 16:56 Room Air 07/31/24 16:56 Room Air Laboratory Results Laboratory Results WBC 9.55 K/ul (4.8-10.8) 07/31/24 17:15 RBC 5.49 M/uL (4.20-5.40) H 07/31/24 17:15 Hgb 13.9 g/dl (12.0-16.0) 07/31/24 17:15 Hct 46.7 % (37.0-47.0) 07/31/24 17:15 MCV 85.1 fL (80.0-100.0) 07/31/24 17:15 MCH 25.3 pg (25.0-34.0) 07/31/24 17:15 MCHC 29.8 g/dL (32.0-36.0) L 07/31/24 17:15 RDW Std Deviation 62.1 fL (36.4-46.3) H 07/31/24 17:15 RDW Coeff of Rasheed 21.1 % (11.5-14.5) H 07/31/24 17:15 Plt Count 437 K/uL (130-400) H 07/31/24 17:15 MPV 10.2 fL (9.4-12.4) 07/31/24 17:15 Immature Gran % (Auto) 0.5 % 07/31/24 17:15 Neut % (Auto) 87.0 % 07/31/24 17:15 Lymph % (Auto) 6.4 % 07/31/24 17:15 [place] % (Auto) 4.8 % 07/31/24 17:15 Eos % (Auto) 1.0 % 07/31/24 17:15 Baso % (Auto) 0.3 % 07/31/24 17:15 Neut # (Auto) 8.30 K/uL (1.40-6.50) H 07/31/24 17:15 Lymph # (Auto) 0.61 K/uL (1.20-3.40) L 07/31/24 17:15 [place] # (Auto) 0.46 K/uL (0.11-0.59) 07/31/24 17:15 Eos # (Auto) 0.10 K/uL (0.00-0.50) 07/31/24 17:15 Baso # (Auto) 0.03 K/uL (0.00-0.20) 07/31/24 17:15 Immature Gran # (Auto) 0.05 K/uL (0.01-0.20) 07/31/24 17:15 Toxic Vacuolation 1+ 07/31/24 17:15 Anisocytosis Present 07/31/24 17:15 PT 13.5 Seconds (9.0-12.0) H 07/31/24 17:15 INR 1.3 (0.9-1.1) H 07/31/24 17:15 VBG pH 7.40 (7.36-7.41) 07/31/24 18:48 VBG pCO2 60 mmHg (38-50) H 07/31/24 18:48 VBG pO2 < 20 mmHg 07/31/24 18:48 VBG HCO3 37 mmol/L 07/31/24 18:48 VBG O2 Saturation < 60.0 % 07/31/24 18:48 VBG Base Excess 10.0 mEq/L 07/31/24 18:48 Sodium 137 mmol/L (136-145) 07/31/24 17:15 Potassium 4.7 mmol/L (3.5-5.1) 07/31/24 17:15 Chloride 101 mmol/L (98-107) 07/31/24 17:15 Carbon Dioxide 32 mmol/L (21-32) 07/31/24 17:15 Anion Gap 4 (3-11) 07/31/24 17:15 BUN 20 mg/dl (6-23) 07/31/24 17:15 Creatinine 0.86 mg/dl (0.6-1.2) 07/31/24 17:15 Est Cr Clr Drug Dosing 62.7 ml/min 07/31/24 17:15 eGFR 74.00 07/31/24 17:15 BUN/Creatinine Ratio 23.3 (10-20) H 07/31/24 17:15 Glucose 86 mg/dl (70-99(Fasting)) 07/31/24 17:15 Lactate 1.2 mmol/L (0.4-2.0) 07/31/24 17:15 Calcium 8.1 mg/dl (8.6-10.3) L 07/31/24 17:15 Magnesium 1.9 mg/dl (1.7-2.4) 07/31/24 17:15 Total Bilirubin 0.6 mg/dl (0.2-1.0) 07/31/24 17:15 Direct Bilirubin 0.2 mg/dl (0-0.2) 07/31/24 18:48 AST 14 U/L (13-39) 07/31/24 17:15 ALT 6 U/L (7-52) L 07/31/24 17:15 Alkaline Phosphatase 104 U/L (34-104) 07/31/24 17:15 Total Creatine Kinase 25 U/L (26-192) L 07/31/24 17:15 Troponin I High Sens 8.2 pg/ml (0-14) 07/31/24 17:15 B-Natriuretic Peptide 1480 pg/ml (0-100) H 07/31/24 20:14 Total Protein 6.7 gm/dl (6.0-8.3) 07/31/24 17:15 Albumin 2.8 gm/dl (3.4-5.0) L 07/31/24 17:15 Procalcitonin 0.04 ng/ml (0-0.5) 07/31/24 17:15 Urine Color Dark Yellow 07/31/24 17:20 Urine Appearance Cloudy (Clear) A 07/31/24 17:20 Urine pH 5.5 (4.5-7.5) 07/31/24 17:20 Ur Specific [place] 1.024 (1.000-1.030) 07/31/24 17:20 Urine Protein 1+ (Negative) H 07/31/24 17:20 Urine Glucose (UA) Negative (Negative) 07/31/24 17:20 Urine Ketones Trace (Negative) H 07/31/24 17:20 Urine Blood Negative (Negative) 07/31/24 17:20 Urine Nitrite Negative (Negative) 07/31/24 17:20 Urine Bilirubin 1+ (Negative) H 07/31/24 17:20 Urine Urobilinogen Negative (Negative) 07/31/24 17:20 Ur Leukocyte Esterase Negative (Negative) 07/31/24 17:20 Urine WBC (Auto) 0-5 /hpf (0-5) 07/31/24 17:20 Urine RBC (Auto) 3-5 /hpf (0-2) H 07/31/24 17:20 U Hyaline Cast (Auto) 6-10 /lpf (0-2) H 07/31/24 17:20 U Epithel Cells (Auto) 3-5 /hpf (0-2) H 07/31/24 17:20 Urine Bacteria (Auto) None Seen (None Seen) 07/31/24 17:20 Impressions Abdomen/Pelvis CT 07/31/24 17:10 CT abd pelvis IV con only CLINICAL HISTORY: vomiting TECHNIQUE: Helical axial images of the abdomen and pelvis were obtained and displayed. Automated dose lowering techniques and/or adjustment according to patient size were utilized for this exam. This exam was performed with intravenous contrast. COMPARISON: None available at the time of this dictation. FINDINGS: Lower chest: For findings above the diaphragm, please see CT chest performed same day. Liver: Unremarkable. No focal lesions are seen. Gallbladder and biliary tree: Layering hyperdensities in the gallbladder which may represent vicarious excretion of contrast versus sludge No intra- or extrahepatic biliary ductal dilation. Pancreas: Unremarkable, no focal lesions. Spleen: Unremarkable. Adrenals: Unremarkable. Kidneys and ureters: Unremarkable. Bladder: Gould catheter is seen. Reproductive organs: Unremarkable. Bowel: A hiatal hernia is seen. Lymph nodes Retroperitoneal: Unremarkable. Pelvic: Unremarkable. Mesenteric: Subcentimeter lymph nodes are noted. Peritoneum: Moderate to large ascites is seen. Vessels: Atherosclerotic calcifications are seen. Abdominal wall: Mild wall edema is seen. Bones: Unremarkable. IMPRESSION: There is anasarca and moderate to large ascites which may reflect volume overload in this patient with a right pleural effusion as well. Otherwise no acu te abnormalities are seen. ACT 112: Negative or not required by law. Electronically signed by: Anthony Rivas M.D. 07/31/2024 7:27 PM Ankle X-Ray 07/31/24 17:10 XR ankle RT min 3V routine CLINICAL HISTORY: R ankle wound TECHNIQUE: 3 views of the right ankle were obtained. Comparison: None available at the time of this dictation. FINDINGS: No fractures are present. The joint spaces are well preserved. Soft tissue swelling is seen about the ankle. IMPRESSION: Soft tissue swelling is seen without evidence of underlying bony abnormality. ACT 112: Negative or not required by law. Electronically signed by: Anthony Rivas M.D. 07/31/2024 6:33 PM Chest X-Ray 07/31/24 17:10 XR chest 1V portable CLINICAL HISTORY: Sepsis TECHNIQUE: Single frontal radiograph of the chest was obtained. Comparison: Comparison is made to chest radiograph 07/19/2022 FINDINGS: No lines and tubes are seen. Calcified aortic knob is seen. Prominence and cephalization of the vasculature is seen. No evidence of pleural effusion or pneumothorax. IMPRESSION: Cardiomegaly and mild pulmonary edema. ACT 112: Negative or not required by law. Electronically signed by: Anthony Rivas M.D. 07/31/2024 5:56 PM Chest CTA 07/31/24 18:36 CT angio chest PE protocol CLINICAL HISTORY: PE; hypoxia TECHNIQUE: Multidetector row helical CT of the chest was performed with angiographic protocol. Coronal and sagittal reformations were obtained. Coronal and sagittal MIPS were obtained from the axial data set and were submitted for review. Automated dose lowering techniques and/or adjustment according to patient size were utilized for this exam. CT DOSE: 1825.15 mGy.cm Comparison: Comparison is made to CT chest 07/19/2022 FINDINGS: Lungs and pleura: Small right pleural effusion is seen. Emphysema is noted. There is mild airspace density in the base of the right upper lobe. Heart and pericardium: Heart size is normal. No pericardial effusion. Vessels: No evidence of pulmonary embolism. Mediastinum and leonard: Right lower paratracheal lymph node measuring up to 11 mm. Additional smaller nodes are seen. Chest wall and lower neck: Small thyroid nodules are noted which do not require follow-up by ACR criteria. Abdomen: For findings below the diaphragm, please refer to CT of the abdomen dated the same. Bones: Degenerative changes in the thoracic spine. IMPRESSION: 1. No pulmonary embolus. 2. Emphysema with possible airspace opacities in the right upper lobe, this may represent pneumonia with reactive lymph nodes. 3. Small right pleural effusion with underlying atelectasis ACT 112: Negative or not required by law. Electronically signed by: Anthony Rivas M.D. 07/31/2024 7:19 PM Code Status & VTE Plan Code Status Full code VTE Prophylaxis Plan VTE Prophylaxis will be ordered: Yes PG Care Time/CCT Total # of Minutes Spent Total Time Spent with Patient: Total time spent is greater than 50% in coordination of care (as documented) at patient's floor/unit and/or counseling patient: Coding Level of Care Code 86442 INT INP/OBS CARE 3/75MIN Diagnoses Anasarca R60.1 Pulmonary edema J81.1 Nausea & vomiting R11.2 Acute hypoxemic respiratory failure J96.01 Diabetic foot infection E11.628; L08.9 CAD (coronary artery disease) I25.10 Bradycardia with 31-40 beats per minute R00.1 Dyslipidemia E78.5 Persistent atrial fibrillation I48.19 Tachy-reema syndrome I49.5 Depression with anxiety F41.8 Diabetes mellitus type 2 in obese E11.69; E66.9 Hyperthyroidism E05.90 Hypertension I10 Anticoagulant long-term use Z79.01 Sacral decubitus ulcer, stage II L89.152
[2024-07-31] MEDS ORDERED: GLUCOSE 10 TAB/TUBE PO PRN (23:18)
[2024-07-31] MEDS ORDERED: CARBOHYDRATES FOR HYPOGLYCEMIA PO PRN (23:18)
[2024-07-31] MEDS ORDERED: GLUCAGON FOR INJ 1 MG VIAL SQ PRN (23:18)
[2024-07-31] MEDS ORDERED: GLUCOSE 40% GEL 15 GM TUBE PO PRN (23:18)
[2024-07-31] MEDS: INSULIN ASPART PER UNIT CHARGE SC SCH (23:30)
[2024-07-31] MEDS: VANCOMYCIN HCL 2,000 MG in SODIUM CHLORIDE 0.9% 500 ML IV ONE (23:30)
[2024-07-31] MEDS: ACETAMINOPHEN 325 MG TAB PO PRN (23:33)
[2024-08-01] MEDS: PIPERACILLIN/TAZOBACTAM 4.5 GM/100 ML BAG IV SCH (01:17)
[2024-08-01 06:24] LABS: Basophils # (auto) 0.03 K/uL (0.00-0.20); Basophils % (auto) 0.3 %; Eosinophils # (auto) 0.19 K/uL (0.00-0.50); Eosinophils % (auto) 2.2 %; Hematocrit (blood only) 35.9 % (37.0-47.0); Hemoglobin 11.4 g/dl (12.0-16.0); Immature Granulocytes # (auto) 0.05 K/uL (0.01-0.20); Immature Granulocytes % (auto) 0.6 %; Lymphocytes # (auto) 0.54 K/uL (1.20-3.40); Lymphocytes % (auto) 6.3 %; Mean Corpuscular Hgb Conc 31.8 g/dL (32.0-36.0); Mean Corpuscular Volume 81.8 fL (80.0-100.0); Mean Platelet Volume 10.3 fL (9.4-12.4); Monocytes # (auto) 0.43 K/uL (0.11-0.59); Neutrophils # (auto) 7.36 K/uL (1.40-6.50); Neutrophils % (auto) 85.6 %; Platelet Count 389 K/uL (130-400); RDW Coefficient of Variation 20.5 % (11.5-14.5); RDW Standard Deviation 59.5 fL (36.4-46.3); Red Blood Count 4.39 M/uL (4.20-5.40)
[2024-08-01 06:46] LABS: Anisocytosis Present; Polychromasia 1+
[2024-08-01] MEDS: SERTRALINE HCL 50 MG TABLET PO PRN (06:51)
[2024-08-01] MEDS: ALBUMIN 25% 25 GM/100 ML VIAL IV SCH (06:51)
[2024-08-01 07:31] LABS: Albumin Level 3.2 gm/dl (3.4-5.0); BUN Creatinine Ratio 21.1 (10-20); Calcium 7.9 mg/dl (8.6-10.3); Magnesium 1.8 mg/dl (1.7-2.4); Phosphorus 3.3 mg/dl (2.5-4.9); Potassium 3.5 mmol/L (3.5-5.1); Thyroid Stimulating Hormone 9.329 uIu/ml (0.300-4.500); Troponin I High Sensitivity 8.4 pg/ml (0-14)
[2024-08-01 07:43] LABS: Estimated Average Glucose 117 mg/dl; Hemoglobin A1C 5.7 % (4.5-5.6)
[2024-08-01] MEDS: oxyCODONE HCL IR 5 MG TAB (IMMEDIATE RELEASE) PO STA (08:19)
[2024-08-01] MEDS: ASPIRIN 81 MG ECTAB PO SCH (08:22)
[2024-08-01] MEDS: APIXABAN 5 MG TABLET PO SCH (08:22)
[2024-08-01] MEDS: methIMAzole 5 MG TABLET PO SCH (08:22)
[2024-08-01] MEDS: FUROSEMIDE 40 MG/4 ML VIAL IV SCH ×2 (08:23→18:03)
[2024-08-01] MEDS: PANTOprazole 40 MG TAB PO SCH (08:23)
--- NOTE | 2024-08-01 08:56 | Cardiology Consultation ---
Date of Consultation August 01, 2024 Assessment & Plan (1) Acute on chronic heart failure with preserved ejection fraction (HFpEF): (2) Bradycardia: (3) CAD (coronary artery disease): (4) Paroxysmal atrial fibrillation: (5) Pulmonary hypertension: (6) Tricuspid regurgitation: (7) Anticoagulant long-term use: (8) Hypertension: (9) Dyslipidemia: Plan ASSESSMENT/PLAN: 1. Acute on chronic heart failure with preserved EF: She appears significantly hypervolemic. Increase Lasix to 40 mg IV twice daily if BP tolerates. Strict I's and O's. Daily weights. Low-sodium diet, less than 2000 mg daily. Adverse reaction reported for SGLT2 inhibitor. Unfortunately, medication noncompliance seems to have played a significant role here as she was not taking her diuretic at home as prescribed. Discontinue albumin. 2. Bradycardia: Sinus but bradycardia in the 40s. Agree with discontinuation of metoprolol and will likely not need to be resumed. Hopefully can resume amiodarone at some dose to maintain sinus rhythm given history of A-fib with RVR. No urgent indication for pacemaker at this time. 3. CAD: Medical therapy was recommended for mostly nonobstructive CAD. Had been on atorvastatin 80 mg daily in the past. Resume high intensity statin therapy. Discontinuing beta-love as above. 4. Paroxysmal atrial fibrillation: Has been seen by EP at [facility] and [facility]. Both institutions discussed potential for A-fib ablation. Currently sinus bradycardia. Has been on amiodarone without cardiology follow-up. Monitor TSH and transaminase levels while on amiodarone. As an outpatient, can determine best long-term treatment option for her. Follow-up with electrophysiology. Continue anticoagulation for stroke risk reduction. 5. Anticoagulation: She has not been taking Eliquis as prescribed, only once daily. Recommend therapeutic dosing on discharge and this was discussed with her. Continue Eliquis 5 mg twice daily. Monitor CBC and renal function. 6. Tricuspid regurgitation: May improve with diuresis as above. Continue to monitor. 7. Pulmonary hypertension: Likely related to her hypervolemic state. Diurese as above. 8. Dyslipidemia: High intensity statin therapy as discussed. 9. Hypotension: Has a history of hypertension but has been mildly hypotensive here. Monitor closely and try to continue to diurese as able. She is being treated for infection 10. Disposition: Cardiology care will be continued tomorrow by her primary ca rdiologist, Dr. Farr. She wishes to follow-up in the [place] office with him upon discharge. Patient care communicated with Dr. Romo of the primary hospitalist service. Thank you for allowing me to participate in the care of your patient. Please call for any other questions or concerns. Sincerely, Simone Hernandez M.D. History of Present Illness Reason for Consultation: sinus bradycardia, paroxysmal afib Requesting Physician: Dr. Rodriguez Attending Physician: Scotty Romo MD History of Present Illness Ms. Henning is a 69-year-old female with history significant for persistent atrial fibrillation, nonobstructive CAD, hypothyroidism, possible thromboembolic event to her toe, hypertension, dyslipidemia, and type 2 diabetes. She was followed by Dr. Farr as her primary pipe changer and wishes to follow- up with him. She had been referred to [facility] electrophysiology on 10/16/2022 and then to [facility] electrophysiology on 04/21/2023. She has not followed up with cardiology since that time per her report. She is a poor historian. She was admitted on 07/31/2024 after presenting with nausea, vomiting, abdominal pain. She apparently had been at [facility] earlier in July and left AMA per records. She states that she has been unable to walk due to her knees giving out on her. Because of this, she has not been taking her medications regularly, specifically her diuretic. She would occasionally take Lasix once daily but was prescribed twice daily. She did not want to have to use the restroom. According to history and physical, she was found in her recliner covered in urine and feces. She admits that she had not left her recliner for quite some time due to her inability to ambulate well. She specifically denies shortness of breath or chest pain. She has significant lower extremity edema which she attributes to the fact that she has not been taking her diuretic. She has been taking Eliquis only once daily because it makes her feel cold if she takes therapeutic dosing. She denies melena, hematochezia, hematuria, or other bleeding. She denies palpitations, syncope, or near syncope. In regards to her A-fib, [facility] EP recommended ablation. [facility] EP discussed cardioversion while on amiodarone with a consideration of ablation. When this was discussed with her today. She did not recall many details and states that when she tried to follow up with [facility] cardiology, that that provider no longer works there (which is not the case). She has had the following studies/procedures: 1. Cardiac cath 07/24/2022 [facility]: Proximal LAD 20%. Diffuse mid circumflex CAD into OM 2 up to 60%. Dominant RCA. Proximal RCA 40 to 50%. RPL 1 proximal 70%. Medical therapy recommended for the moderate to severe smaller vessel disease. Review of systems: As above. Family history: Mother may have had a cardiac issue but she does not know the details. Social history: She quit smoking years ago but could not give details. She denies alcohol or drug abuse. She has 2 children ([facility] in [place]). She lives with her longtime boyfriend/fianc in [place]. Her fianc was present at the bedside. Allergies Allergy/AdvReac Type Severity Reaction Status Date / Time ciprofloxacin [Cipro] Allergy Mild SHORTNESS Verified 07/31/24 20:15 OF BREATH miconazole Allergy Mild Rash Verified 07/31/24 20:15 empagliflozin Allergy Unknown Unknown Verified 07/31/24 20:15 [From Jardiance] metformin Allergy Unknown Unknown Verified 07/31/24 20:15 Home Medications Medication Instructions Recorded Confirmed Type methimazole 10 mg tablet 10 mg PO QAM 07/20/22 07/31/24 History sitagliptin phosphate 100 mg 100 mg PO QDB 07/20/22 07/31/24 History tablet (Januvia) metoprolol succinate 25 mg 25 mg PO BID #60 tabs 09/04/22 07/31/24 Rx tablet,extended release 24 hr amiodarone 200 mg tablet 200 mg PO QAM 07/31/24 07/31/24 History apixaban 5 mg tablet (Eliquis) 5 mg PO QAM 07/31/24 07/31/24 History aspirin 81 mg tablet,delayed 81 mg PO QAM 07/31/24 07/31/24 History release furosemide 40 mg tablet 40 mg PO BID 07/31/24 07/31/24 History oxycodone 10 mg tablet 10 mg PO Q4 PRN Pain 07/31/24 07/31/24 History pantoprazole 40 mg tablet,delayed 40 mg PO QAM 07/31/24 07/31/24 History release potassium chloride 20 mEq 20 meq PO QAM 07/31/24 07/31/24 History tablet,extended release(part/cryst) (Klor-Con M) sertraline 50 mg tablet (Zoloft) 50 mg PO DAILY PRN USES FOR ANXIETY 07/31/24 07/31/24 History tiotropium bromide 1.25 2 puff inhalation DAILY PRN 07/31/24 07/31/24 History mcg/actuation mist for inhalation Shortness Of Breath (Spiriva Respimat) Problem List (Updated 08/01/24 @ 13:29 by Reid Hernandez MD) Tricuspid regurgitation Pulmonary hypertension Paroxysmal atrial fibrillation Bradycardia Acute on chronic heart failure with preserved ejection fraction (HFpEF) Sacral decubitus ulcer, stage II Tachy-reema syndrome Bradycardia with 31-40 beats per minute Anasarca Pneumonia (Acute) Pulmonary edema (Acute) Nausea & vomiting (Acute) Acute hypoxemic respiratory failure (Acute) Diabetic foot infection (Acute) Hypertension CAD (coronary artery disease) Dyslipidemia Persistent atrial fibrillation Neuroenteric cyst Depression with anxiety Acute respiratory failure with hypoxia Ex-smoker COPD with emphysema Chronic lower back pain Diabetes mellitus type 2 in obese Dermatitis Mediastinal lymphadenopathy Hypomagnesemia NSTEMI (non-ST elevated myocardial infarction) Hyperthyroidism Abnormal chest CT Neck pain Anticoagulant long-term use Rapid atrial fibrillation Elevated troponin (Acute) SOB (shortness of breath) (Acute) Degenerative arthritis of cervical spine Atrial fibrillation Chest pain Rapid atrial fibrillation (Acute) Patient History Surgical History No pertinent past surgical history Social History Smoking Status: Former smoker Tobacco Type: Cigarettes Smoking End Date: tamia >10 years ago; Second Hand Exposure: No; Tobacco Cessation Education Requested by Patient: No Hx Alcohol Use: No Hx Substance Use: No Preferred Language: Maltese Communication Ability: Effective Inspector [employer] Required: No Beliefs That Will Affect Care: None marital status: Single Current Living Situation: Significant Other Current Living Situation Comment: Lives at home with Cody Other Information That Helps Us Care for You: No Feels Safe at Home: Yes Safety Concerns: Feels Safe At This Time Assistive Devices: Mechanical Lift Physical Exam Physical Exam: Gen.: No acute distress. Alert. HEENT: Anicteric sclera. Neck: Elevated JVD. No bruits. Normal carotid upstrokes bilaterally. Cardiac: Regular and bradycardic. Normal S1-S2. 2/6 systolic murmur. Pulmonary: Decreased breath sounds bilaterally, but otherwise clear to au scultation bilaterally without wheezes, rales, or rhonchi. Abdomen: Soft, nontender, nondistended, with normoactive bowel sounds. No bruits noted. Extremities: 1+ radial pulses bilaterally. 2-3+ bilateral lower extremity edema to the knees and 1+ above the knees bilaterally. Wounds noted in her lower extremities, specifically the right lower extremity. Some of her wounds were bandaged. Distal lower extremities were in boots. No cyanosis. Results & Data Vital Signs (Past 12 Hours) Vital Signs Temp Pulse Pulse Resp BP BP BP 08/01/24 07:47 36.7 C 46 L 17 98/53 L 08/01/24 02:52 36.5 C 42 L 16 97/60 L 07/31/24 23:27 07/31/24 23:27 36.5 C 41 L 16 104/54 L 07/31/24 23:11 40 L 07/31/24 22:17 99/52 L 07/31/24 22:15 41 L 07/31/24 22:00 42 L 12 92/45 L 07/31/24 21:18 43 L 17 07/31/24 21:16 114/60 07/31/24 21:00 104/57 L 07/31/24 21:00 41 L 18 Pulse Ox O2 Del Method O2 Flow Rate 08/01/24 07:47 95 Nasal Cannula 2.0 08/01/24 02:52 97 Nasal Cannula 2 07/31/24 23:27 Nasal Cannula 3 07/31/24 23:27 94 Nasal Cannula 2 07/31/24 23:11 07/31/24 22:17 07/31/24 22:15 07/31/24 22:00 95 Nasal Cannula 3 07/31/24 21:18 99 Nasal Cannula 3 07/31/24 21:16 07/31/24 21:00 07/31/24 21:00 100 Intake & Output 07/30/24 07/31/24 08/01/24 08/02/24 06:59 06:59 06:59 06:59 Intake Total 1273.333 / 1273.333 Output Total 1050 / 1050 Balance 223.333 / 223.333 Weight 184 lb 1.376 oz Laboratory Results Laboratory Results - last 24 hr 07/31/24 07/31/24 07/31/24 17:15 17:20 18:48 WBC 9.55 RBC 5.49 H Hgb 13.9 Hct 46.7 MCV 85.1 MCH 25.3 MCHC 29.8 L RDW Std Deviation 62.1 H RDW Coeff of Rasheed 21.1 H Plt Count 437 H MPV 10.2 Immature Gran % (Auto) 0.5 Neut % (Auto) 87.0 Lymph % (Auto) 6.4 [place] % (Auto) 4.8 Eos % (Auto) 1.0 Baso % (Auto) 0.3 Neut # (Auto) 8.30 H Lymph # (Auto) 0.61 L [place] # (Auto) 0.46 Eos # (Auto) 0.10 Baso # (Auto) 0.03 Immature Gran # (Auto) 0.05 Toxic Vacuolation 1+ Polychromasia Anisocytosis Present PT 13.5 H INR 1.3 H VBG pH 7.40 VBG pCO2 60 H VBG pO2 < 20 VBG HCO3 37 VBG O2 Saturation < 60.0 VBG Base Excess 10.0 Sodium 137 Potassium 4.7 Chloride 101 Carbon Dioxide 32 Anion Gap 4 BUN 20 Creatinine 0.86 Est Cr Clr Drug Dosing 62.7 eGFR 74.00 BUN/Creatinine Ratio 23.3 H Glucose 86 POC Glucose Estimat Average Glucose Hemoglobin A1c Lactate 1.2 Calcium 8.1 L Phosphorus Magnesium 1.9 Total Bilirubin 0.6 Direct Bilirubin TNP 0.2 AST 14 ALT 6 L Alkaline Phosphatase 104 Total Creatine Kinase 25 L Troponin I High Sens 8.2 B-Natriuretic Peptide Total Protein 6.7 Albumin 2.8 L Procalcitonin 0.04 TSH Free T4 Free T3 Urine Color Dark Yellow Urine Appearance Cloudy A Urine pH 5.5 Ur Specific [place] 1.024 Urine Protein 1+ H Urine Glucose (UA) Negative Urine Ketones Trace H Urine Blood Negative Urine Nitrite Negative Urine Bilirubin 1+ H Urine Urobilinogen Negative Ur Leukocyte Esterase Negative Urine WBC (Auto) 0-5 Urine RBC (Auto) 3-5 H U Hyaline Cast (Auto) 6-10 H U Epithel Cells (Auto) 3-5 H Urine Bacteria (Auto) None Seen 07/31/24 07/31/24 08/01/24 20:14 23:28 05:52 WBC 8.60 RBC 4.39 Hgb 11.4 L Hct 35.9 L MCV 81.8 MCH 26.0 MCHC 31.8 L RDW Std Deviation 59.5 H RDW Coeff of Rasheed 20.5 H Plt Count 389 MPV 10.3 Immature Gran % (Auto) 0.6 Neut % (Auto) 85.6 Lymph % (Auto) 6.3 [place] % (Auto) 5.0 Eos % (Auto) 2.2 Baso % (Auto) 0.3 Neut # (Auto) 7.36 H Lymph # (Auto) 0.54 L [place] # (Auto) 0.43 Eos # (Auto) 0.19 Baso # (Auto) 0.03 Immature Gran # (Auto) 0.05 Toxic Vacuolation Polychromasia 1+ Anisocytosis Present PT INR VBG pH VBG pCO2 VBG pO2 VBG HCO3 VBG O2 Saturation VBG Base Excess Sodium 140 Potassium 3.5 D Chloride 102 Carbon Dioxide 31 Anion Gap 7 BUN 16 Creatinine 0.76 Est Cr Clr Drug Dosing 72.0 eGFR 85.83 BUN/Creatinine Ratio 21.1 H Glucose 88 POC Glucose 69 L* Estimat Average Glucose 117 Hemoglobin A1c 5.7 H Lactate Calcium 7.9 L Phosphorus 3.3 Magnesium 1.8 Total Bilirubin Direct Bilirubin AST ALT Alkaline Phosphatase Total Creatine Kinase Troponin I High Sens 8.4 B-Natriuretic Peptide 1480 H Total Protein Albumin 3.2 L Procalcitonin TSH 9.329 H Free T4 Free T3 Urine Color Urine Appearance Urine pH Ur Specific [place] Urine Protein Urine Glucose (UA) Urine Ketones Urine Blood Urine Nitrite Urine Bilirubin Urine Urobilinogen Ur Leukocyte Esterase Urine WBC (Auto) Urine RBC (Auto) U Hyaline Cast (Auto) U Epithel Cells (Auto) Urine Bacteria (Auto) 08/01/24 08/01/24 07:17 07:23 WBC RBC Hgb Hct MCV MCH MCHC RDW Std Deviation RDW Coeff of Rasheed Plt Count MPV Immature Gran % (Auto) Neut % (Auto) Lymph % (Auto) [place] % (Auto) Eos % (Auto) Baso % (Auto) Neut # (Auto) Lymph # (Auto) [place] # (Auto) Eos # (Auto) Baso # (Auto) Immature Gran # (Auto) Toxic Vacuolation Polychromasia Anisocytosis PT INR VBG pH VBG pCO2 VBG pO2 VBG HCO3 VBG O2 Saturation VBG Base Excess Sodium Potassium Chloride Carbon Dioxide Anion Gap BUN Creatinine Est Cr Clr Drug Dosing eGFR BUN/Creatinine Ratio Glucose POC Glucose 114 H Estimat Average Glucose Hemoglobin A1c Lactate Calcium Phosphorus Magnesium Total Bilirubin Direct Bilirubin AST ALT Alkaline Phosphatase Total Creatine Kinase Troponin I High Sens B-Natriuretic Peptide Total Protein Albumin Procalcitonin TSH Free T4 0.76 Free T3 1.83 L Urine Color Urine Appearance Urine pH Ur Specific [place] Urine Protein Urine Glucose (UA) Urine Ketones Urine Blood Urine Nitrite Urine Bilirubin Urine Urobilinogen Ur Leukocyte Esterase Urine WBC (Auto) Urine RBC (Auto) U Hyaline Cast (Auto) U Epithel Cells (Auto) Urine Bacteria (Auto) Diagnostic Findings ECG personally reviewed 07/31/2024: Sinus bradycardia 39 bpm. Poor R wave progression. Nonspecific T wave abnormality. Labs reviewed and notable for anemia, normal renal function, elevated BNP, elevated TSH, nonelevated transaminase levels, normal potassium, normal magnesium. History and physical report reviewed. CTA chest 07/31/2024: No PE. Emphysema with possible airspace opacities in the right upper lobe, which may represent pneumonia with reactive lymph nodes per radiology. Small right pleural effusion. CT abdomen/pelvis 07/31/2024: Anasarca. Moderate to large ascites. Unremarkable liver. [facility] cardiology note reviewed from 10/16/2022. Her she cardiology note from 04/21/2023 reviewed. ECHO 08/01/24: 1. Normal left ventricular size and systolic function. EF 60-65%. No regional wall motion abnormalities. Moderate concentric left ventricular hypertrophy. Septal flattening during diastole and systole suggest RV volume and pressure overload. 2. Mildly dilated right ventricle with mildly reduced systolic function. 3. Mild biatrial dilation. 4. Mild mitral regurgitation. 5. Moderate to severe tricuspid regurgitation. 6. Severe pulmonary hypertension. Estimated RVSP 69 mmHg. 7. Technically difficult study, enhanced with IV Definity. 8. Compared to prior study on 07/20/2022, Right ventricle is now mildly dilated with mildly reduced systolic function. Severe pulmonary hypertension is now present. Tricuspid regurgitation is now more significant. Medications Administered Current Inpatient Medications Acetaminophen (Acetaminophen 325 Mg Tab) 650 mg PO Q4H PRN PRN Reason: Pain or Fever Stop: 08/30/24 23:17 Last Admin: 08/01/24 08:21 Dose: 650 mg Apixaban (Apixaban 5 Mg Tablet) 5 mg PO BID [facility] Stop: 08/31/24 08:59 Last Admin: 08/01/24 08:22 Dose: 5 mg Aspirin ([facility]in 81 Mg Ectab) [facility] Stop: 08/31/24 08:59 Last Admin: 08/01/24 08:22 Dose: 81 mg Dextrose (Dextrose 50% 50 Ml Syringe) 25 - 50 ml IV UD PRN; Protocol PRN Reason: Hypoglycemia Protocol Stop: 08/30/24 23:17 Furosemide (Furosemide 40 Mg/4 Ml Vial) 40 mg IV [facility] Stop: 08/31/24 08:59 Last Admin: 08/01/24 08:23 Dose: 40 mg Glucagon (Glucagon For Inj 1 Mg Vial) 1 mg SQ UD PRN; Protocol PRN Reason: Hypoglycemia Protocol Stop: 08/30/24 23:17 Glucose (Glucose 40% Gel 15 Gm Tube) 15 - 30 gm PO UD PRN; Protocol PRN Reason: Hypoglycemia Protocol Stop: 08/30/24 23:17 Glucose (Glucose 10 Tab/Tube) 4 - 8 tab PO UD PRN; Protocol PRN Reason: Hypoglycemia Protocol Stop: 08/30/24 23:17 Piperacillin Sod/Tazobactam Sod (Zosyn) 4.5 gm in 100 mls @ 25 mls/hr IV Q8H [facility]; Protocol Stop: 08/08/24 01:59 Last Infusion: 08/01/24 05:20 Dose: Infused Vancomycin HCl 1,500 mg/ (Sodium Chloride) 530 mls @ 200 mls/hr IV Q24H [facility] Stop: 08/08/24 09:59 Albumin Human (Albumin 25%) 25 gm in 100 mls @ 50 mls/hr IV Q24H [facility] Stop: 08/04/24 06:29 Last Admin: 08/01/24 06:51 Dose: 50 mls/hr Insulin Aspart (Insulin Aspart Per Unit Charge) 0 units SC ACHS [facility] Stop: 08/30/24 23:17 Last Admin: 08/01/24 08:18 Dose: Not Given Methimazole (Methimazole 5 Mg Tablet) 10 mg PO [facility] Stop: 08/31/24 08:59 Last Admin: 08/01/24 08:22 Dose: 10 mg Miscellaneous (Carbohydrates For Hypoglycemia ) 15 - 30 gm PO UD PRN PRN Reason: Hypoglycemia Protocol Stop: 08/30/24 23:17 Miscellaneous Information (Vancomycin Consult Active) 1 each N/A UD PRN PRN Reason: Consult Stop: 08/30/24 23:17 Pantoprazole Sodium (Pantoprazole 40 Mg Tab) 40 mg PO QAM [facility] Stop: 08/31/24 08:59 Last Admin: 08/01/24 08:23 Dose: 40 mg Sertraline HCl (Sertraline Hcl 50 Mg Tablet) 50 mg PO DAILY PRN PRN Reason: USES FOR ANXIETY Stop: 08/30/24 23:17 Last Admin: 08/01/24 06:51 Dose: 50 mg PG Care Time/CCT Total # of Minutes Spent Total Time Spent with Patient: Total time spent is greater than 50% in coordination of care (as documented) at patient's floor/unit and/or counseling patient: Coding Level of Care Code 01476 INT INP/OBS CARE 3/75MIN Diagnoses Acute on chronic heart failure with preserved ejection fraction (HFpEF) I50.33 Bradycardia R00.1 CAD (coronary artery disease) I25.10 Paroxysmal atrial fibrillation I48.0 Pulmonary hypertension I27.20 Tricuspid regurgitation I07.1 Anticoagulant long-term use Z79.01 Hypertension I10 Dyslipidemia E78.5
[2024-08-01] MEDS ORDERED: APIXABAN 5 MG TABLET PO SCH (09:00)
--- NOTE | 2024-08-01 09:32 | Pharmacy Report ---
Pharmacy PK ABX Note - Date of Service August 01, 2024 - Assessment and Plan Assessment 69 year old F receiving Vancomycin and Zosyn for treatment of possible diabetic foot infection and sacral wounds. * Day #1 of antimicrobial therapy. * PMHx significant for T2DM. * Labs/Vitals: Afebrile. No leukocytosis. Renal fxn stable. Lactate and procal negative. * Micro: Blood and ankle cultures pending. * Imaging: Ankle XR with no evidence of osteomyelitis per radiology read. Plan Vancomycin * Loading dose: 2000 mg IV x 1 * Maintenance dose: 1000 mg IV every 12 hours * Regimen is predicted to achieve target AUC/CYNTHIA of 400-600 mg/L.hr * Random level ordered for: 08/02/24 Zosyn * 4.5 g IV every 8 hours Pharmacy will continue to follow and will adjust dose/frequency as necessary. Thank you. Pharmacy has transitioned to AUC monitoring for vancomycin. AUC/CYNTHIA is the preferred PK/PD target and is associated with decreased risk of nephrotoxicity compared to traditional trough targets.
--- NOTE | 2024-08-01 09:59 | XCELERA ---
[id number] [id number]
[2024-08-01] MEDS ORDERED: VANCOMYCIN HCL 1,500 MG in SODIUM CHLORIDE 0.9% 500 ML IV SCH (10:00)
[2024-08-01] MEDS ORDERED: VANCOMYCIN HCL 1,500 MG in DEXTROSE 5% 500 ML IV SCH (10:00)
--- NOTE | 2024-08-01 10:19 | Hospitalist Progress Note ---
Date of Service August 01, 2024 Assessment & Plan (1) Anasarca: Plan: Appears to be due to acute on chronic diastolic CHF. Currently on parenteral Lasix once daily. Monitor intake and output. (2) Pulmonary edema: Plan: Present on admission. Seen on admission chest x-ray. Continue parenteral Lasix diuresis. (3) Nausea & vomiting: Plan: Present on admission. Zofran IV as needed (4) Acute hypoxemic respiratory failure: Plan: Oxygen per nasal cannula to maintain saturation greater than 90%. Wean off as tolerated. Due to underlying CHF (5) Diabetic foot infection: Plan: Chronic venous stasis and ulcerations bilateral lower extremities with chronic ulcerations and chronic infections. She is currently on intravenous vancomycin and Zosyn, day 2. Wound care has been consulted (6) Bradycardia with 31-40 beats per minute: Plan: Sinus mechanism. Telemetry. Amiodarone and metoprolol are currently on hold. Cardiology consultation. Check thyroid status (7) Persistent atrial fibrillation: Plan: Appears to be paroxysmal atrial fibrillation. She takes Eliquis chronically. Current EKG reveals sinus bradycardia. (8) Tachy-reema syndrome: Plan: By history. Telemetry (9) Diabetes mellitus type 2 in obese: Plan: ADA diet. Sliding scale coverage as needed (10) Hyperthyroidism: Plan: She takes methimazole chronically. Free T3 and free T4 levels are ordered and pending (11) Hypertension: Plan: Metoprolol is currently on hold due to bradycardia (12) Anticoagulant long-term use: Plan: Chronic Eliquis usage (13) Sacral decubitus ulcer, stage II: Plan: Local care. Plan To be determined. OT and PT evaluations requested Admission and Anticipated Discharge Date Admission Date: July 31, 2024 Subjective Alert. No distress. Amiodarone and metoprolol are on hold due to bradycardia on presentation. Heart rate is now in the 50s. Cardiology consultation is pending. Wound care consultation pending. She remains on intravenous vancomycin and Zosyn, day 2. BNP is markedly elevated on admission. She is requiring 2 L of oxygen currently. Wound care consultation pending. She remains on intravenous Lasix daily. Free T4 and free T3 levels are pending. She takes methimazole due to a past history of hyperthyroidism Review of Systems 2 Review of Systems: Constitutionalno fever or chills ENTno blurred vision, no double vision, no epistaxis, no sore throat Respiratoryno cough, no wheezing.shortness of breath with minimal exertion Cardiacno palpitations, no chest pain, no syncope Deng nausea, vomiting, diarrhea, melena, hematochezia GUno urinary retention, no urinary incontinence, no dysuria, no hematuria Musculoskeletalno joint pain, no muscle tenderness Skinchronic bilateral lower extremity leg ulcerations and edema from chronic venous insufficiency Neuro- no isolated weakness, no paresthesia Psychno depression, no anxiety Physical Exam 2 Physical Exam: General-alert and oriented x3, no fever, no chills HEENT-head atraumatic and normocephalic, pupils equal and reactive to light, extraocular muscles intact Neck-no lymphadenopathy or thyromegaly, trachea midline Chest-bibasilar inspiratory rales. No wheezing. No rhonchi. C Cardiac-bradycardic regular rhythm. Normal S1 and S2 Abdomen-normal bowel sounds, no hepatosplenomegaly Extremities-bilateral lower extremity chronic venous insufficiency with edema and multiple chronic appearing ulcerations Neuro-no focal deficits. Generalized weakness Psych-normal affect, normal mood Results & Data Results & Data Vital Signs (Past 12 Hours) Vital Signs Temp Pulse Pulse Resp BP BP Pulse Ox 08/01/24 07:47 36.7 C 46 L 17 98/53 L 95 08/01/24 02:52 36.5 C 42 L 16 97/60 L 97 07/31/24 23:27 07/31/24 23:27 36.5 C 41 L 16 104/54 L 94 07/31/24 23:11 40 L 07/31/24 22:17 99/52 L 07/31/24 22:15 41 L O2 Del Method O2 Flow Rate 08/01/24 07:47 Nasal Cannula 2.0 08/01/24 02:52 Nasal Cannula 2 07/31/24 23:27 Nasal Cannula 3 07/31/24 23:27 Nasal Cannula 2 07/31/24 23:11 07/31/24 22:17 07/31/24 22:15 Laboratory Results 08/01/24 05:52 08/01/24 05:52 PG Care Time/CCT Total # of Minutes Spent Total Time Spent with Patient: Total time spent is greater than 50% in coordination of care (as documented) at patient's floor/unit and/or counseling patient: Coding Level of Care Code 64437 SUB INP/OBS CARE 350MIN Diagnoses Anasarca R60.1 Pulmonary edema J81.1 Nausea & vomiting R11.2 Acute hypoxemic respiratory failure J96.01 Diabetic foot infection E11.628; L08.9 Bradycardia with 31-40 beats per minute R00.1 Persistent atrial fibrillation I48.19 Tachy-reema syndrome I49.5 Diabetes mellitus type 2 in obese E11.69; E66.9 Hyperthyroidism E05.90 Hypertension I10 Anticoagulant long-term use Z79.01 Sacral decubitus ulcer, stage II L89.152
[2024-08-01] MEDS: VANCOMYCIN HCL 1,000 MG in SODIUM CHLORIDE 0.9% 250 ML IV SCH (10:50)
[2024-08-01] MEDS: oxyCODONE HCL IR 5 MG TAB (IMMEDIATE RELEASE) PO PRN (14:54)
[2024-08-01] MEDS: ONDANSETRON INJ 2 MG/ML 2 ML VIAL IV PRN (18:41)
[2024-08-02 07:12] LABS: Basophils # (auto) 0.04 K/uL (0.00-0.20); Basophils % (auto) 0.4 %; Eosinophils # (auto) 0.18 K/uL (0.00-0.50); Eosinophils % (auto) 1.7 %; Hematocrit (blood only) 37.3 % (37.0-47.0); Hemoglobin 11.5 g/dl (12.0-16.0); Immature Granulocytes # (auto) 0.05 K/uL (0.01-0.20); Immature Granulocytes % (auto) 0.5 %; Lymphocytes # (auto) 0.52 K/uL (1.20-3.40); Lymphocytes % (auto) 4.9 %; Mean Corpuscular Hemoglobin 25.3 pg (25.0-34.0); Mean Corpuscular Hgb Conc 30.8 g/dL (32.0-36.0); Mean Corpuscular Volume 82.2 fL (80.0-100.0); Mean Platelet Volume 10.5 fL (9.4-12.4); Monocytes # (auto) 0.55 K/uL (0.11-0.59); Monocytes % (auto) 5.1 %; Neutrophils # (auto) 9.34 K/uL (1.40-6.50); Neutrophils % (auto) 87.4 %; Platelet Count 382 K/uL (130-400); RDW Coefficient of Variation 20.5 % (11.5-14.5); RDW Standard Deviation 59.8 fL (36.4-46.3); Red Blood Count 4.54 M/uL (4.20-5.40); White Blood Count 10.68 K/ul (4.8-10.8)
[2024-08-02 07:28] LABS: BUN Creatinine Ratio 15.6 (10-20); Calcium 7.8 mg/dl (8.6-10.3); Creatinine Clr Calc Pharmacy 69.6 ml/min; Magnesium 1.8 mg/dl (1.7-2.4); Potassium 3.3 mmol/L (3.5-5.1)
[2024-08-02 07:44] LABS: Anisocytosis Present
--- NOTE | 2024-08-02 07:52 | Pharmacy Report ---
Pharmacy PK ABX Note - Date of Service August 02, 2024 - Assessment and Plan Assessment 69 year old F receiving Vancomycin and Zosyn for treatment of possible diabetic foot infection and sacral wounds. * Day #3 of antimicrobial therapy. 07/31 ankle culture (+) GNB. Renal function stable. Plan Vancomycin * Current regimen: 1000mg IV q12h * Random level this AM (~8.5h level), 18.2mcg/mL predicted to achieve ssAUC 612mg/L.hr with toxicity of 15%. * Will adjust regimen to 1500mg IV q24. Regimen is predicted to achieve target AUC/CYNTHIA of 400-600 mg/L.hr * Repeat level in ~ 48h if therapy continued. Pharmacy will continue to follow and will adjust dose/frequency as necessary. Thank you. Pharmacy has transitioned to AUC monitoring for vancomycin. AUC/CYNTHIA is the preferred PK/PD target and is associated with decreased risk of nephrotoxicity compared to traditional trough targets.
--- NOTE | 2024-08-02 09:31 | Cardiology Progress Note ---
Date of Service August 02, 2024 Assessment & Plan (1) Acute on chronic heart failure with preserved ejection fraction (HFpEF): (2) Bradycardia: (3) CAD (coronary artery disease): (4) Paroxysmal atrial fibrillation: (5) Pulmonary hypertension: (6) Tricuspid regurgitation: (7) Anticoagulant long-term use: (8) Hypertension: (9) Dyslipidemia: Plan ASSESSMENT/PLAN: 1. Acute on chronic heart failure with preserved EF: She appears significantly hypervolemic. Continue Lasix 40 mg IV twice daily. Try to attain 1 to 2 L net negative fluid balance daily. Strict I's and O's. Daily weights. Low-sodium diet, less than 2000 mg daily. Adverse reaction reported for SGLT2 inhibitor. Unfortunately, medication noncompliance seems to have played a significant role here as she was not taking her diuretic at home as prescribed. 2. Bradycardia: Sinus but bradycardia in the 40-50s. Metoprolol has been discontinued. Hopefully can resume amiodarone at some dose to maintain sinus rhythm given history of A-fib with RVR. No urgent indication for pacemaker at this time. 3. CAD: Medical therapy was recommended for mostly nonobstructive CAD. Had been on atorvastatin 80 mg daily in the past. Resume high intensity statin therapy. Discontinuing beta-love as above. 4. Paroxysmal atrial fibrillation: [place] [facility] [place] [facility] [place] Both institutions discussed potential for A-fib ablation. Currently sinus bradycardia. Metoprolol has been discontinued and amiodarone held due to bradycardia. Has been on amiodarone without cardiology follow-up. Monitor TSH and transaminase levels while on amiodarone. As an outpatient, can determine best long-term treatment option for her. If has ongoing issues with A-fib with RVR and difficulty maintaining amiodarone therapy due to sinus bradycardia, would consider A-fib ablation versus pacemaker for tachybradycardia syndrome to allow for ongoing treatment. Recommend follow-up with electrophysiology. Continue anticoagulation for stroke risk reduction. 5. Anticoagulation: She has not been taking Eliquis as prescribed, choosing to take it only once daily while at home. Discussed the importance of taking it twice daily whenever she is discharged. Continue Eliquis 5 mg twice daily. Monitor CBC and renal function. 6. Tricuspid regurgitation: May improve with diuresis as above. Continue to monitor. 7. Pulmonary hypertension: Likely related to her hypervolemic state. Diurese as above. 8. Dyslipidemia: High intensity statin therapy as discussed. 9. Hypotension: Has a history of hypertension but has been mildly hypotensive here. Infection may be playing a role in her hypotension. 10. Disposition: Cardiology care may be continued tomorrow by her primary adult parole officer, Dr. Farr. She wishes to follow-up in the [facility] office with him upon discharge. Patient care communicated with Dr. De Souza of the primary hospitalist service. Admission and Anticipated Discharge Date Admission Date: July 31, 2024 Subjective Patient was seen earlier today. She has no complaints. She denies chest pain, shortness of breath, syncope, near syncope, palpitations. She was unaccompanied. Physical Exam Physical Exam: Gen.: No acute distress. Alert. HEENT: Anicteric sclera. Neck: JVD to the mandible. Cardiac: Regular and bradycardic. Normal S1-S2. 2/6 systolic murmur. Pulmonary: Decreased breath sounds bilaterally, but otherwise clear to auscultation bilaterally without wheezes, rales, or rhonchi. Abdomen: Soft, nontender, nondistended, with normoactive bowel sounds. No bruits noted. Extremities: 1+ radial pulses bilaterally. 2-3+ bilateral lower extremity edema to the knees (less tense than 08/01/2024) and 1+ above the knees bilaterally. Wounds noted in her lower extremities, specifically the right lower extremity. Some of her wounds were bandaged. No cyanosis. Results & Data Vital Signs (Past 12 Hours) Vital Signs Temp Pulse Pulse Resp BP Pulse Ox O2 Del Method 08/02/24 07:13 37.0 C 50 L 17 91/44 L 92 Nasal Cannula 08/01/24 23:31 36.6 C 49 L 16 109/57 L 92 Nasal Cannula 08/01/24 21:57 43 L O2 Flow Rate 08/02/24 07:13 3 08/01/24 23:31 3 08/01/24 21:57 Intake & Output 07/31/24 08/01/24 08/02/24 08/03/24 06:59 06:59 06:59 06:59 Intake Total 1273.333 / 9132.739 2840 / 1710 Output Total 1050 / 1050 3375 / 3375 Balance 223.333 / 223.333 -1665 / -1665 Weight 184 lb 1.376 oz 177 lb 0.499 oz Laboratory Results Laboratory Results - last 24 hr 08/01/24 08/01/24 08/01/24 10:58 16:27 20:10 WBC RBC Hgb Hct MCV MCH MCHC RDW Std Deviation RDW Coeff of Rasheed Plt Count MPV Immature Gran % (Auto) Neut % (Auto) Lymph % (Auto) [place] % (Auto) Eos % (Auto) Baso % (Auto) Neut # (Auto) Lymph # (Auto) [place] # (Auto) Eos # (Auto) Baso # (Auto) Immature Gran # (Auto) Anisocytosis Sodium Potassium Chloride Carbon Dioxide Anion Gap BUN Creatinine Est Cr Clr Drug Dosing eGFR BUN/Creatinine Ratio Glucose POC Glucose 89 106 H 93 Calcium Magnesium Random Vancomycin 08/02/24 08/02/24 08/02/24 04:11 06:50 07:15 WBC 10.68 RBC 4.54 Hgb 11.5 L Hct 37.3 MCV 82.2 MCH 25.3 MCHC 30.8 L RDW Std Deviation 59.8 H RDW Coeff of Rasheed 20.5 H Plt Count 382 MPV 10.5 Immature Gran % (Auto) 0.5 Neut % (Auto) 87.4 Lymph % (Auto) 4.9 [place] % (Auto) 5.1 Eos % (Auto) 1.7 Baso % (Auto) 0.4 Neut # (Auto) 9.34 H Lymph # (Auto) 0.52 L [place] # (Auto) 0.55 Eos # (Auto) 0.18 Baso # (Auto) 0.04 Immature Gran # (Auto) 0.05 Anisocytosis Present Sodium 142 Potassium 3.3 L Chloride 99 Carbon Dioxide 37 H Anion Gap 6 BUN 12 Creatinine 0.77 Est Cr Clr Drug Dosing 69.6 eGFR 84.49 BUN/Creatinine Ratio 15.6 Glucose 86 POC Glucose 68 L* 94 Calcium 7.8 L Magnesium 1.8 Random Vancomycin 18.2 Diagnostic Findings Labs reviewed and notable for stable hemoglobin, normal renal function, mild hypokalemia, normal magnesium. Telemetry personally reviewed: Sinus bradycardia in the 50s. Medications Administered Current Inpatient Medications Acetaminophen (Acetaminophen 325 Mg Tab) 650 mg PO Q4H PRN PRN Reason: Pain or Fever Stop: 08/30/24 23:17 Last Admin: 08/02/24 06:22 Dose: 650 mg Apixaban (Apixaban 5 Mg Tablet) 5 mg PO BID [facility] Stop: 08/31/24 08:59 Last Admin: 08/02/24 08:45 Dose: 5 mg Aspirin (Aspirin 81 Mg Ectab) 81 mg PO QAM [facility] Stop: 08/31/24 08:59 Last Admin: 08/02/24 08:45 Dose: 81 mg Atorvastatin Calcium (Atorvastatin 40 Mg Tab) 80 mg PO QAM [facility] Stop: 09/01/24 08:59 Dextrose (Dextrose 50% 50 Ml Syringe) 25 - 50 ml IV UD PRN; Protocol PRN Reason: Hypoglycemia Protocol Stop: 08/30/24 23:17 Furosemide (Furosemide 40 Mg/4 Ml Vial) 40 mg IV BID17 [facility] Stop: 08/31/24 16:59 Last Admin: 08/02/24 08:45 Dose: 40 mg Glucagon (Glucagon For Inj 1 Mg Vial) 1 mg SQ UD PRN; Protocol PRN Reason: Hypoglycemia Protocol Stop: 08/30/24 23:17 Glucose (Glucose 40% Gel 15 Gm Tube) 15 - 30 gm PO UD PRN; Protocol PRN Reason: Hypoglycemia Protocol Stop: 08/30/24 23:17 Glucose (Glucose 10 Tab/Tube) 4 - 8 tab PO UD PRN; Protocol PRN Reason: Hypoglycemia Protocol Stop: 08/30/24 23:17 Piperacillin Sod/Tazobactam Sod (Zosyn) 4.5 gm in 100 mls @ 25 mls/hr IV Q8H [facility]; Protocol Stop: 08/08/24 01:59 Last Infusion: 08/02/24 05:01 Dose: Infused Vancomycin HCl 1,500 mg/ (Sodium Chloride) 530 mls @ 200 mls/hr IV Q24H [facility] Stop: 08/08/24 09:59 Insulin Aspart (Insulin Aspart Per Unit Charge) 0 units SC ACHS [facility] Stop: 08/30/24 23:17 Last Admin: 08/02/24 07:32 Dose: Not Given Miscellaneous (Carbohydrates For Hypoglycemia ) 15 - 30 gm PO UD PRN PRN Reason: Hypoglycemia Protocol Stop: 08/30/24 23:17 Miscellaneous Information (Vancomycin Consult Active) 1 each N/A UD PRN PRN Reason: Consult Stop: 08/30/24 23:17 Ondansetron HCl (Ondansetron Inj 2 Mg/Ml 2 Ml Vial) 4 mg IV Q4H PRN PRN Reason: Nausea Stop: 08/31/24 18:19 Last Admin: 08/01/24 18:41 Dose: 4 mg Oxycodone HCl (Oxycodone Hcl Ir 5 Mg Tab (Immediate Release)) 10 mg PO Q6H PRN PRN Reason: Pain Stop: 08/15/24 13:56 Last Admin: 08/02/24 06:23 Dose: 10 mg Pantoprazole Sodium (Pantoprazole 40 Mg Tab) 40 mg PO QAM [facility] Stop: 08/31/24 08:59 Last Admin: 08/02/24 08:45 Dose: 40 mg Potassium Chloride (Potassium Chloride Crtab 20 Meq Tabcr) 20 meq PO QAM [facility] Stop: 09/01/24 08:59 Sertraline HCl (Sertraline Hcl 50 Mg Tablet) 50 mg PO DAILY [facility] Stop: 09/01/24 08:59 Umeclidinium Danevang (Umeclidinium Danevang 62.5mcg/Blister 7 Puffs/Inhaler) 1 puffs INH DAILY [facility]; Protocol Stop: 09/01/24 08:59 PG Care Time/CCT Total # of Minutes Spent Total Time Spent with Patient: Total time spent is greater than 50% in coordination of care (as documented) at patient's floor/unit and/or counseling patient: Coding Level of Care Code 41207 SUB INP/OBS CARE 3/50MIN Diagnoses Acute on chronic heart failure with preserved ejection fraction (HFpEF) I50.33 Bradycardia R00.1 CAD (coronary artery disease) I25.10 Paroxysmal atrial fibrillation I48.0 Pulmonary hypertension I27.20 Tricuspid regurgitation I07.1 Anticoagulant long-term use Z79.01 Hypertension I10 Dyslipidemia E78.5
[2024-08-02] MEDS: ATORVASTATIN 40 MG TAB PO SCH (10:11)
[2024-08-02] MEDS: POTASSIUM CHLORIDE CRTAB 20 MEQ TABCR PO SCH (10:11)
[2024-08-02] MEDS: SERTRALINE HCL 50 MG TABLET PO SCH (10:11)
[2024-08-02] MEDS: oxyCODONE HCL IR 5 MG TAB (IMMEDIATE RELEASE) PO PRN (11:42)
[2024-08-02] MEDS: VANCOMYCIN HCL 1,500 MG in SODIUM CHLORIDE 0.9% 500 ML IV SCH (14:58)
[2024-08-02] MEDS: UMECLIDINIUM BROMIDE 62.5MCG/BLISTER 7 PUFFS/INHALER INH SCH (14:58)
--- NOTE | 2024-08-02 17:34 | Hospitalist Progress Note ---
Date of Service August 02, 2024 Assessment & Plan (1) Acute on chronic heart failure with preserved ejection fraction (HFpEF): Plan: Appears to be due to acute on chronic heart failure with preserved ejection fraction; noncompliant on home diuretic With anasarca and CXR with pulm edema - Last echocardiogram 08/01/24 showed EF 60 to 65%, no motion wall abnormalities, right ventricle mildly dilated, severe pulmonary hypertension, worsening tricuspid regurg - BNP 1480 on admission - Heart healthy, low sodium diet - Strict I&O monitoring - Daily weights - Continue with Lasix 40 mg IV twice daily if BP tolerates - resumed home potassium 08/02 due to K+ level 3.3 - Daily BMP, Magnesium (2) Acute hypoxemic respiratory failure: Plan: Due to underlying CHF - Oxygen per nasal cannula to maintain saturation greater than 90% - patient not on oxygen at home - patient denies dyspnea, cough, dizziness/lightheadedness - Wean off as tolerated; currently on 3 L nasal cannula (3) Diabetic foot infection: Plan: Chronic venous stasis and ulcerations bilateral lower extremities with chronic ulcerations and chronic infections - recent A1c 08/01/2024 5.7% - on Januvia at home - afebrile, VSS, no leukocytosis - no signs of systemic infection at this time - no drainage noted from the wounds - pain management with Tylenol and Home oxycodone dose as needed - prelim wound culture showed gram-negative bacilli; final result pending - Both blood cultures showed no growth after 24 hours; final results pending - Currently on intravenous vancomycin and Zosyn, started 08/01 - Wound care has been consulted - continue with waffle boots (4) Bradycardia with 31-40 beats per minute: Plan: Chronic history of tachybradycardia syndrome; Sinus rhythm Does not follow closely with cardiology outpatient - cardiology consulted - thyroid panel showing hypothyroidism; possibly secondary to amiodarone use vs overmedication with methimazole - Will likely discontinue metoprolol permanently; currently on hold - Continue to hold amiodarone; hopeful to resume soon to maintain sinus rhythm although can contribute hypothyroidism - monitor thyroid function and transaminase levels while on amiodarone (5) Persistent atrial fibrillation: Plan: Paroxysmal atrial fibrillation on Eliquis - seen by cardiology outpatient previously; does not follow with them closelydiscussed potential for A-fib ablation in the past - Cardiology following - will need outpatient follow-up with electrophysiology - current telemetry shows sinus rhythm - Continue Eliquis - Continue to hold amiodarone due to bradycardia and hypothyroidism - discontinued metoprolol (6) Nausea & vomiting: Plan: Present on admission, since resolved - Zofran IV as needed (7) Diabetes mellitus type 2 in obese: Plan: history of type 2 diabetes with diabetic foot ulcers - Diabetic diet - Hold home Januvia - Sliding-scale coverage as needed - A1c 5.7 (8) Hyperthyroidism: Plan: - She takes methimazole and amiodarone chronically - Thyroid function on admission showing hypothyroidism;TSH 9.3, T3 1.83 - continue to hold methimazole and amiodarone -follow TSH in 2 weeks (9) Hypertension: Plan: Hypotensive on admission, remains somewhat soft/low normal - continue to hold metoprolol; will likely discontinue - Will continue with IV Lasix as BP allows (10) Sacral decubitus ulcer, stage II: Plan: - wound care consulted (11) Anemia: Plan: appears to be chronic - Hypochromic microcytic anemia - Iron panel and ferritin level with a.m. labs (12) CAD (coronary artery disease): Plan: history of nonobstructive CAD - Has been on atorvastatin 80 mg daily in the past - Cardiology following - Recommended to resume high intensity statin - lipid panel with a.m. labs - restart atorvastatin 80 mg 08/02 Plan Chronic stable diagnoses: Depressioncontinue sertraline VTE ppx: Eliquis Diet: heart healthy, low-sodium, diabetes diet Code status: full Dispo: PCU/telemetry; case management has referrals for short-term rehab, awaiting wound cultures Admission and Anticipated Discharge Date Admission Date: July 31, 2024 Supervising Physician Co-Signing Physician Notes Physician Sheeter Waxer Operator Supervision note: I have personally seen and examined the patient and discussed and verified the sharma points of the history and physical along with the plan with ROXANNE Lino with the following exceptions and/or additions: None Subjective Patient seen at bedside and doing well. She has no complaints overnight. She did have an episode of nausea and vomiting yesterday that has since subsided. She stated that she has pain in both of her feet. The worst pain is on her left heel. Her wounds were cleaned yesterday. She does feel slightly constipated, stool softeners as needed. She is planning for inpatient rehab after discharge. Patient denies fever, chills, headache, dizziness, lightheadedness, dyspnea, dyspnea on exertion, chest pain, abdominal pain, nausea, vomiting. Tele: sinus bradycardia, heart rate 40-50 Review of Systems Review of Systems: See HPI Physical Exam Physical Exam: The patient is awake, alert and oriented 3, well developed and well nourished, normocephalic and atraumatic, in no acute distress. Non-toxic appearing. HEENT- EOMI, mucous membranes moist. Hearing grossly intact. Heart-normal S1 and S2. No murmurs, rubs or gallops. Lungs-clear bilaterally, no respiratory distress, no accessory muscle use. Abdomen-normal bowel sounds and soft. No ascites noted. Non-tender. Extremities- no clubbing, cyanosis. Bilateral lower extremity edema, bilateral waffle boots. Bilateral erythema suggestive of chronic venous stasis dermatitis. Bilateral ulcers. Rheumatologic-normal range of motion. Psychiatric-normal affect. Results & Data Results & Data Vital Signs (Past 12 Hours) Vital Signs Temp Pulse Resp BP Pulse Ox O2 Del Method O2 Flow Rate 08/02/24 15:58 36.4 C L 47 L 17 105/57 L 92 Nasal Cannula 3 08/02/24 11:05 36.6 C 51 L 18 96/44 L 97 Nasal Cannula 3 08/02/24 08:00 Nasal Cannula 3 08/02/24 07:13 37.0 C 50 L 17 91/44 L 92 Nasal Cannula 3 Laboratory Results Reviewed CBC, BMP, and vancomycin level. PG Care Time/CCT Total # of Minutes Spent Total Time Spent with Patient: Total time spent is greater than 50% in coordination of care (as documented) at patient's floor/unit and/or counseling patient: Coding [place] [address] SUB INP/OBS CARE 3/50MIN Patient Type Established Medical Decision Making High Complexity Diagnoses Acute on chronic heart failure with preserved ejection fraction (HFpEF) I50.33 Acute hypoxemic respiratory failure J96.01 Diabetic foot infection E11.628; L08.9 Bradycardia with 31-40 beats per minute R00.1 Persistent atrial fibrillation I48.19 Nausea & vomiting R11.2 Diabetes mellitus type 2 in obese E11.69; E66.9 Hyperthyroidism E05.90 Hypertension I10 Sacral decubitus ulcer, stage II L89.152 Anemia D64.9 CAD (coronary artery disease) I25.10
[2024-08-03 06:33] LABS: Basophils # (auto) 0.07 K/uL (0.00-0.20); Basophils % (auto) 0.7 %; Eosinophils # (auto) 0.39 K/uL (0.00-0.50); Eosinophils % (auto) 3.8 %; Hematocrit (blood only) 40.7 % (37.0-47.0); Hemoglobin 12.3 g/dl (12.0-16.0); Immature Granulocytes # (auto) 0.05 K/uL (0.01-0.20); Immature Granulocytes % (auto) 0.5 %; Lymphocytes # (auto) 0.63 K/uL (1.20-3.40); Lymphocytes % (auto) 6.1 %; Mean Corpuscular Hemoglobin 25.3 pg (25.0-34.0); Mean Corpuscular Hgb Conc 30.2 g/dL (32.0-36.0); Mean Corpuscular Volume 83.6 fL (80.0-100.0); Mean Platelet Volume 10.1 fL (9.4-12.4); Monocytes # (auto) 0.67 K/uL (0.11-0.59); Monocytes % (auto) 6.5 %; Neutrophils # (auto) 8.52 K/uL (1.40-6.50); Neutrophils % (auto) 82.4 %; Platelet Count 351 K/uL (130-400); RDW Coefficient of Variation 20.3 % (11.5-14.5); RDW Standard Deviation 60.1 fL (36.4-46.3); Red Blood Count 4.87 M/uL (4.20-5.40); White Blood Count 10.33 K/ul (4.8-10.8)
[2024-08-03 06:54] LABS: BUN Creatinine Ratio 14.9 (10-20); Calcium 7.5 mg/dl (8.6-10.3); Chol HDL Ratio 3.8 (0-5); Creatinine Clr Calc Pharmacy 79.9 ml/min; Magnesium 1.7 mg/dl (1.7-2.4); Potassium 3.4 mmol/L (3.5-5.1)
[2024-08-03 07:07] LABS: Anisocytosis Present; Polychromasia 1+; Toxic Vacuolation 1+
[2024-08-03 07:13] LABS: Ferritin 72.7 ng/ml (8-388)
[2024-08-03] MEDS: POTASSIUM CHLORIDE CRTAB 20 MEQ TABCR PO STA ×2 (08:43→23:37)
[2024-08-03] MEDS: CALCIUM 600MG + VIT D 400 IU TAB PO SCH (08:46)
[2024-08-03] MEDS: FERROUS SULFATE 325 MG TAB PO SCH (08:46)
[2024-08-03] MEDS: DOCUSATE SODIUM 100 MG CAP PO PRN (09:20)
--- NOTE | 2024-08-03 09:23 | Cardiology Progress Note ---
Date of Service August 03, 2024 Assessment & Plan (1) Acute on chronic heart failure with preserved ejection fraction (HFpEF): (2) Bradycardia: (3) CAD (coronary artery disease): (4) Paroxysmal atrial fibrillation: (5) Pulmonary hypertension: (6) Tricuspid regurgitation: (7) Anticoagulant long-term use: (8) Hypertension: (9) Dyslipidemia: Plan ASSESSMENT/PLAN: 1. Acute on chronic heart failure with preserved EF: Volume status improving but still hypervolemic. Continue Lasix 40 mg IV twice daily. Try to attain 1 to 2 L net negative fluid balance daily. Strict I's and O's. Daily weights. Low-sodium diet, less than 2000 mg daily. Adverse reaction reported for SGLT2 inhibitor. Unfortunately, medication noncompliance seems to have played a significant role here as she was not taking her diuretic at home as prescribed. Given hypokalemia and resistance by patient for nursing staff to take her potassium supplementation, will order spironolactone. 2. Bradycardia: Sinus but bradycardia in the 40-50s. Metoprolol has been discontinued. Hopefully can resume amiodarone at some dose to maintain sinus rhythm given history of A-fib with RVR. No urgent indication for pacemaker at this time. 3. CAD: Medical therapy was recommended for mostly nonobstructive CAD. Had been on atorvastatin 80 mg daily in the past. Resume high intensity statin therapy. Discontinued beta-love as above. 4. Paroxysmal atrial fibrillation: Has been seen by EP at [facility] and [facility]. Both institutions discussed potential for A-fib ablation. Currently sinus bradycardia. Metoprolol has been discontinued and amiodarone held due to bradycardia. Has been on amiodarone without cardiology follow-up. Monitor TSH and transaminase levels while on amiodarone. As an outpatient, can determine best long-term treatment option for her. If has ongoing issues with A-fib with RVR and difficulty maintaining amiodarone therapy due to sinus bradycardia, would consider A-fib ablation versus pacemaker for tachybradycardia syndrome to allow for ongoing treatment. Recommend follow-up with electrophysiology. Continue anticoagulation for stroke risk reduction. 5. Anticoagulation: She has not been taking Eliquis as prescribed, choosing to take it only once daily while at home. Discussed the importance of taking it twice daily whenever she is discharged. Continue Eliquis 5 mg twice daily. Monitor CBC and renal function. 6. Tricuspid regurgitation: May improve with diuresis as above. Continue to monitor. 7. Pulmonary hypertension: Likely related to her hypervolemic state. Diurese as above. 8. Dyslipidemia: High intensity statin therapy as discussed. 9. Hypotension: Has a history of hypertension but has been mildly hypotensive here. Infection may be playing a role in her hypotension. Blood pressure normal today. 10. Lower extremity wounds: Podiatry has been consulted by primary hospitalist service. Peripheral arterial Doppler pending today. 11. Disposition: When discharged, follow-up with Dr. Farr, her primary porcelain finish sprayer. She wishes to follow-up in the [place] office. Patient care communicated with Lesvia Lino PA-C of the primary hospitalist service. Admission and Anticipated Discharge Date Admission Date: July 31, 2024 Subjective Patient seen this morning. She denies shortness of breath, chest pain, syncope, near syncope. Spoke with nursing staff and her lower extremity dressing/bandages were removed. Underlying tendons were visible. She was unaccompanied. Physical Exam Physical Exam: Gen.: No acute distress. Alert. HEENT: Anicteric sclera. Neck: Elevated JVD. Cardiac: Regular and bradycardic. Normal S1-S2. 2/6 systolic murmur. Pulmonary: Decreased breath sounds bilaterally, but otherwise clear to auscultation bilaterally without wheezes, rales, or rhonchi. Abdomen: Soft, nontender, nondistended, with normoactive bowel sounds. No bruits noted. Extremities: 1+ radial pulses bilaterally. 1-2+ bilateral lower extremity edema to the knees. Deep wounds noted in her lower extremities, specifically the right lower extremity. Several discolored/black toes on the right foot, specifically plantar surface. No cyanosis. Results & Data Vital Signs (Past 12 Hours) Vital Signs Temp Pulse Pulse Resp BP BP Pulse Ox 08/03/24 07:18 36.9 C 50 L 9 L 113/54 L 97 08/03/24 03:18 36.6 C 45 L 16 101/51 L 98 08/02/24 22:46 36.6 C 42 L 16 105/59 L 100 08/02/24 22:39 08/02/24 22:39 104/62 08/02/24 21:47 46 L O2 Del Method O2 Flow Rate 08/03/24 07:18 Nasal Cannula 3 08/03/24 03:18 Nasal Cannula 3 08/02/24 22:46 Nasal Cannula 3 08/02/24 22:39 Nasal Cannula 3 08/02/24 22:39 08/02/24 21:47 Intake & Output 08/01/24 08/02/24 08/03/24 08/04/24 06:59 06:59 06:59 06:59 Intake Total 1273.333 / 5433.378 9172 / 1710 1340 / 1340 Output Total 1050 / 1050 3375 / 3375 2750 / 2750 Balance 223.333 / 223.333 -1665 / -1665 -1410 / -1410 Weight 184 lb 1.376 oz 177 lb 0.499 oz 176 lb 9.444 oz Laboratory Results Laboratory Results - last 24 hr 08/02/24 08/02/24 08/02/24 11:22 16:15 16:34 WBC RBC Hgb Hct MCV MCH MCHC RDW Std Deviation RDW Coeff of Rasheed Plt Count MPV Immature Gran % (Auto) Neut % (Auto) Lymph % (Auto) [place] % (Auto) Eos % (Auto) Baso % (Auto) Neut # (Auto) Lymph # (Auto) [place] # (Auto) Eos # (Auto) Baso # (Auto) Immature Gran # (Auto) Toxic Vacuolation Polychromasia Anisocytosis Sodium Potassium Chloride Carbon Dioxide Anion Gap BUN Creatinine Est Cr Clr Drug Dosing eGFR BUN/Creatinine Ratio Glucose POC Glucose 149 H 64 L* 74 Calcium Magnesium Iron TIBC Unsaturated IBC Transferrin % Sat Ferritin Triglycerides Cholesterol LDL Cholesterol, Calc VLDL Cholesterol, Calc HDL Cholesterol Cholesterol/HDL Ratio 08/02/24 08/03/24 08/03/24 20:38 05:22 05:27 WBC 10.33 RBC 4.87 Hgb 12.3 Hct 40.7 MCV 83.6 MCH 25.3 MCHC 30.2 L RDW Std Deviation 60.1 H RDW Coeff of Rasheed 20.3 H Plt Count 351 MPV 10.1 Immature Gran % (Auto) 0.5 Neut % (Auto) 82.4 Lymph % (Auto) 6.1 [place] % (Auto) 6.5 Eos % (Auto) 3.8 Baso % (Auto) 0.7 Neut # (Auto) 8.52 H Lymph # (Auto) 0.63 L [place] # (Auto) 0.67 H Eos # (Auto) 0.39 Baso # (Auto) 0.07 Immature Gran # (Auto) 0.05 Toxic Vacuolation 1+ Polychromasia 1+ Anisocytosis Present Sodium 140 Potassium 3.4 L Chloride 98 Carbon Dioxide 35 H Anion Gap 7 BUN 10 Creatinine 0.67 Est Cr Clr Drug Dosing 79.9 eGFR 95.74 BUN/Creatinine Ratio 14.9 Glucose 59 L POC Glucose 76 73 Calcium 7.5 L Magnesium 1.7 Iron 14 L TIBC 124 L Unsaturated IBC 110 L Transferrin % Sat 11 L Ferritin 72.7 Triglycerides 94 Cholesterol 79 LDL Cholesterol, Calc 39 VLDL Cholesterol, Calc 19 HDL Cholesterol 21 Cholesterol/HDL Ratio 3.8 08/03/24 07:16 WBC RBC Hgb Hct MCV MCH MCHC RDW Std Deviation RDW Coeff of Rasheed Plt Count MPV Immature Gran % (Auto) Neut % (Auto) Lymph % (Auto) [place] % (Auto) Eos % (Auto) Baso % (Auto) Neut # (Auto) Lymph # (Auto) [place] # (Auto) Eos # (Auto) Baso # (Auto) Immature Gran # (Auto) Toxic Vacuolation Polychromasia Anisocytosis Sodium Potassium Chloride Carbon Dioxide Anion Gap BUN Creatinine Est Cr Clr Drug Dosing eGFR BUN/Creatinine Ratio Glucose POC Glucose 109 H Calcium Magnesium Iron TIBC Unsaturated IBC Transferrin % Sat Ferritin Triglycerides Cholesterol LDL Cholesterol, Calc VLDL Cholesterol, Calc HDL Cholesterol Cholesterol/HDL Ratio Diagnostic Findings Labs reviewed and notable for stable renal function, mild hypokalemia, normal blood counts, excellent LDL. Telemetry personally reviewed: Sinus bradycardia in the 50s this morning and into the 40s overnight. ECG personally reviewed 08/03/2024 at 5:54 AM: Sinus bradycardia [address]/T wave abnormality. Medications Administered Current Inpatient Medications Acetaminophen (Acetaminophen 325 Mg Tab) 650 mg PO Q4H PRN PRN Reason: Pain or Fever Stop: 08/30/24 23:17 Last Admin: 08/02/24 10:11 Dose: 650 mg Apixaban (Apixaban 5 Mg Tablet) 5 mg PO BID [facility] Stop: 08/31/24 08:59 Last Admin: 08/03/24 08:45 Dose: 5 mg Aspirin (Aspirin 81 Mg Ectab) 81 mg PO QAM [facility] Stop: 08/31/24 08:59 Last Admin: 08/03/24 08:45 Dose: 81 mg Atorvastatin Calcium (Atorvastatin 40 Mg Tab) 80 mg PO QAM [facility] Stop: 09/01/24 08:59 Last Admin: 08/03/24 08:46 Dose: 80 mg Calcium/Vitamin D (Calcium 600mg + Vit D 400 Iu Tab) 1 tab PO BID [facility] Stop: 09/02/24 08:59 Last Admin: 08/03/24 09:22 Dose: Not Given Dextrose (Dextrose 50% 50 Ml Syringe) 25 - 50 ml IV UD PRN; Protocol PRN Reason: Hypoglycemia Protocol Stop: 08/30/24 23:17 Docusate Sodium (Docusate Sodium 100 Mg Cap) 100 mg PO BID PRN PRN Reason: Constipation Stop: 09/01/24 13:03 Last Admin: 08/03/24 09:20 Dose: 100 mg Ferrous Sulfate (Ferrous Sulfate 325 Mg Tab) [facility] Stop: 09/02/24 08:59 Last Admin: 08/03/24 08:46 Dose: 325 mg Furosemide (Furosemide 40 Mg/4 Ml Vial) 40 mg IV [id number] [facility] Stop: 08/31/24 16:59 Last Admin: 08/03/24 08:46 Dose: 40 mg Glucagon (Glucagon For Inj 1 Mg Vial) 1 mg SQ UD PRN; Protocol PRN Reason: Hypoglycemia Protocol Stop: 08/30/24 23:17 Glucose (Glucose 40% Gel 15 Gm Tube) 15 - 30 gm PO UD PRN; Protocol PRN Reason: Hypoglycemia Protocol Stop: 08/30/24 23:17 Glucose (Glucose 10 Tab/Tube) 4 - 8 tab PO UD PRN; Protocol PRN Reason: Hypoglycemia Protocol Stop: 08/30/24 23:17 Piperacillin Sod/Tazobactam Sod (Zosyn) 4.5 gm in 100 mls @ 25 mls/hr IV Q8H [facility]; Protocol Stop: 08/08/24 01:59 Last Infusion: 08/03/24 05:59 Dose: Infused Insulin Aspart (Insulin Aspart Per Unit Charge) 0 units SC ACHS [facility] Stop: 08/30/24 23:17 Last Admin: 08/03/24 08:43 Dose: Not Given Miscellaneous (Carbohydrates For Hypoglycemia ) 15 - 30 gm PO UD PRN PRN Reason: Hypoglycemia Protocol Stop: 08/30/24 23:17 Ondansetron HCl (Ondansetron Inj 2 Mg/Ml 2 Ml Vial) 4 mg IV Q4H PRN PRN Reason: Nausea Stop: 08/31/24 18:19 Last Admin: 08/03/24 05:12 Dose: 4 mg Oxycodone HCl (Oxycodone Hcl Ir 5 Mg Tab (Immediate Release)) 10 mg PO Q4H PRN PRN Reason: Pain Stop: 08/15/24 13:56 Last Admin: 08/03/24 08:48 Dose: 10 mg Pantoprazole Sodium (Pantoprazole 40 Mg Tab) 40 mg PO QAM [facility] Stop: 08/31/24 08:59 Last Admin: 08/03/24 08:47 Dose: 40 mg Potassium Chloride (Potassium Chloride Crtab 20 Meq Tabcr) 20 meq PO QAM [facility] Stop: 09/01/24 08:59 Last Admin: 08/03/24 08:58 Dose: 20 meq Sertraline HCl (Sertraline Hcl 50 Mg Tablet) 50 mg PO DAILY [facility] Stop: 09/01/24 08:59 Last Admin: 08/03/24 08:47 Dose: 50 mg Umeclidinium [place] (Umeclidinium [place] 62.5mcg/Blister 7 Puffs/Inhaler) 1 puffs INH DAILY [facility]; Protocol Stop: 09/01/24 08:59 Last Admin: 08/03/24 08:48 Dose: 1 puffs PG Care Time/CCT Total # of Minutes Spent Total Time Spent with Patient: Total time spent is greater than 50% in coordination of care (as documented) at patient's floor/unit and/or counseling patient: Coding Level of Care Code 57225 SUB INP/OBS CARE 3/50MIN Diagnoses Acute on chronic heart failure with preserved ejection fraction (HFpEF) I50.33 Bradycardia R00.1 CAD (coronary artery disease) I25.10 Paroxysmal atrial fibrillation I48.0 Pulmonary hypertension I27.20 Tricuspid regurgitation I07.1 Anticoagulant long-term use Z79.01 Hypertension I10 Dyslipidemia E78.5
--- NOTE | 2024-08-03 10:07 | Hospitalist Progress Note ---
Date of Service August 03, 2024 Assessment & Plan (1) Acute on chronic heart failure with preserved ejection fraction (HFpEF): Plan: Appears to be due to acute on chronic heart failure with preserved ejection fraction; noncompliant on home diuretic With anasarca and CXR with pulm edema - Last echocardiogram 08/01/24 showed EF 60 to 65%, no motion wall abnormalities, right ventricle mildly dilated, severe pulmonary hypertension, worsening tricuspid regurg - BNP 1480 on admission - Heart healthy, low sodium diet - Strict I&O monitoring - Daily weights - cardiology following Hypokalemia - resumed home potassium 08/02 due to K+ level 3.3 - improved to 3.4 08/03 -> additional 20 meq given although resistance with nursing staff - addition of spironolactone 08/03 - Continue with Lasix 40 mg IV twice daily if BP tolerates - Daily BMP, Magnesium (2) Acute hypoxemic respiratory failure: Plan: Due to underlying CHF - Oxygen per nasal cannula to maintain saturation greater than 90% - patient not on oxygen at home - patient denies dyspnea, cough, dizziness/lightheadedness - Wean off O2 as tolerated; currently on 3 L nasal cannula (3) Diabetic foot infection: Plan: Chronic venous stasis and ulcerations bilateral lower extremities showing necrosis and tendon exposure on dorsal right foot - recent A1c 08/01/2024 5.7% - afebrile, VSS, no leukocytosis - no signs of systemic infection at this time - no drainage noted from the wounds - pain management with Tylenol and Home oxycodone dose as needed - Wound cultures showed pseudomonas - susceptible to Zosyn; continue - no transition to PO abx due to allergy to quinolones and prolonged QTC - Both blood cultures showed no growth after 24 hours - Vancomycin discontinued 08/03 - Wound care consulted; see images 08/03 - Podiatry consulted - planning for surgical debridement 08/05 - continue with waffle boots -will need to hold ELiquis after AM dose on 08/04 PAD - likely component of PAD as distal pulses not able to be palpitated - lipid panel showing total cholesterol and LDL WNL, HDL low () - continue daily baby aspirin, high intensity statin started 08/02 - arterial Doppler confirming peripheral vascular disease - consult Dr. Tolbert for vascular management (4) Bradycardia with 31-40 beats per minute: Plan: Chronic history of tachybradycardia syndrome; Sinus rhythm Does not follow closely with cardiology outpatient - cardiology following - thyroid panel showing hypothyroidism; possibly secondary to amiodarone use vs overmedication with methimazole - Will likely discontinue metoprolol permanently; currently on hold - Continue to hold amiodarone; hopeful to resume soon to maintain sinus rhythm although can contribute hypothyroidism - monitor thyroid function and transaminase levels while on amiodarone (5) Persistent atrial fibrillation: Plan: Paroxysmal atrial fibrillation on Eliquis - seen by cardiology outpatient previously; does not follow with them closely discussed potential for A-fib ablation in the past - Cardiology following - will need outpatient follow-up with electrophysiology - current telemetry shows sinus rhythm - Continue Eliquis - Continue to hold amiodarone due to bradycardia and hypothyroidism - discontinued metoprolol (6) Nausea & vomiting: Plan: Present on admission, continued - Zofran IV as needed (7) Diabetes mellitus type 2 in obese: Plan: history of type 2 diabetes with diabetic foot ulcers - Diabetic diet - Hold home Januvia - A1c 5.7 - NovoLog discontinued as patient needing minimal insulin and hypoglycemic at times (8) Hyperthyroidism: Plan: - She takes methimazole and amiodarone chronically - Thyroid function on admission showing hypothyroidism;TSH 9.3, T3 1.83 - continue to hold methimazole and amiodarone - follow TSH in 2 weeks (repeat 07/15) (9) Hypertension: Plan: Hypotensive on admission, remains somewhat soft/low normal - continue to hold metoprolol; will likely discontinue - Will continue with IV Lasix as BP allows (10) Sacral decubitus ulcer, stage II: Plan: - wound care consulted (11) Anemia: Plan: appears to be chronic - Hypochromic microcytic anemia - Iron panel and ferritin level confirm iron deficiency anemia - iron supplement started 08/03 with stool softeners as needed (12) CAD (coronary artery disease): Plan: history of nonobstructive CAD - Has been on atorvastatin 80 mg daily in the past - Cardiology following - Recommended to resume high intensity statin - lipid panel showing low HDL, reminder WNL - restart atorvastatin 80 mg 08/02 (13) Hypocalcemia: Plan: - calcium consistently low - supplement with Ca + vit D started 08/03 - vit D with am labs Plan Chronic stable diagnoses: Depression continue sertraline VTE ppx: Eliquis Diet: heart healthy, low-sodium, diabetes diet Code status: full Dispo: PCU/telemetry; wound debridement 08/05 with podiatry Admission and Anticipated Discharge Date Admission Date: July 31, 2024 Supervising Physician Co-Signing Physician Notes Physician Forklift Driver Supervision note: I have personally seen and examined the patient and discussed and verified the sharma points of the history and physical along with the plan with ROXANNE Lino with the following exceptions and/or additions: None Subjective Patient seen at bedside and doing okay. She is nauseous on exam, nurse notified and given IV Zofran. Wound care present during examination so able to visualize wound as well. Tendon exposure on the top of the right foot, necrotic tissue throughout bilateral foot ulcers. Listen to Doppler with wound care, decreased peripheral pulses. Patient stated that she recently ate different hospital in which they wrapped her feet, the wounds began after that. She has had significant pain in both of her feet. Aside from the foot wounds, her appetite has been decreased. Patient denies fever, chills, dizziness, lightheadedness, dyspnea, dyspnea on exertion, chest pain, abdominal pain. Tele: Sinus bradycardia, HR 40-50. Review of Systems Review of Systems: See HPI Physical Exam Physical Exam: The patient is awake, alert and oriented 3, well developed and well nourished, normocephalic and atraumatic, in no acute distress. Non-toxic appearing. HEENT- EOMI, mucous membranes moist. Hearing grossly intact. Heart-normal S1 and S2. No murmurs, rubs or gallops. Lungs-clear bilaterally, no respiratory distress, no accessory muscle use. 3L O2 via nasal cannula. Abdomen-normal bowel sounds and soft. No ascites noted. Non-tender. Extremities- no clubbing, cyanosis. Bilateral lower extremity edema, bilateral waffle boots. Bilateral erythema suggestive of chronic venous stasis dermatitis. Bilateral ulcers with necrosis. Dorsal side of right foot with tendon exposure. Heel of right foot with large black/necrotic wound. See images uploaded today in chart. Pulses unable to be palpated. Rheumatologic-decreased range of motion due to pain. Psychiatric- anxious affect. Results & Data Results & Data Vital Signs (Past 12 Hours) Vital Signs Temp Pulse Resp BP BP Pulse Ox O2 Del Method 08/03/24 07:18 36.9 C 50 L 9 L 113/54 L 97 Nasal Cannula 08/03/24 03:18 36.6 C 45 L 16 101/51 L 98 Nasal Cannula 08/02/24 22:46 36.6 C 42 L 16 105/59 L 100 Nasal Cannula 08/02/24 22:39 Nasal Cannula 08/02/24 22:39 104/62 O2 Flow Rate 08/03/24 07:18 3 08/03/24 03:18 3 08/02/24 22:46 3 08/02/24 22:39 3 08/02/24 22:39 Laboratory Results reviewed cbc, bmp, iron panel, ferritin, lipid panel PG Care Time/CCT Total # of Minutes Spent Total Time Spent with Patient: Total time spent is greater than 50% in coordination of care (as documented) at patient's floor/unit and/or counseling patient: C[place] [address] SUB INP/OBS CARE 3/50MIN Patient Type Established Medical Decision Making High Complexity Diagnoses Acute on chronic heart failure with preserved ejection fraction (HFpEF) I50.33 Acute hypoxemic respiratory failure J96.01 Diabetic foot infection E11.628; L08.9 Bradycardia with 31-40 beats per minute R00.1 Persistent atrial fibrillation I48.19 Nausea & vomiting R11.2 Diabetes mellitus type 2 in obese E11.69; E66.9 Hyperthyroidism E05.90 Hypertension I10 Sacral decubitus ulcer, stage II L89.152 Anemia D64.9 CAD (coronary artery disease) I25.10 Hypocalcemia E83.51
--- NOTE | 2024-08-03 13:24 | Ultrasound Report ---
ULTRASOUND BILATERAL LOWER EXTREMITY ARTERIAL CLINICAL HISTORY: Foot wounds. Diminished pulses. COMPARISON STUDY: No priors. TECHNIQUE: Real-time grayscale and color Doppler sonography of the arteries of the right and left low er extremity is performed from the inguinal crease to the foot. The patient declined ankle-brachial i ndex assessment. FINDINGS: Right lower extremity: Atherosclerotic plaque and irregularity is observed. There are biphasic arteri al waveforms in the common femoral artery with velocities measuring up to 50 cm/s. The profunda femor is artery is patent with velocities measuring up to 48 cm/s. There are biphasic arterial waveforms th roughout the superficial, femoral and popliteal arteries. The velocities in the femoral artery measur e up to 87 cm/s and velocities in the popliteal artery measure up to 70 cm/s. There is three-vessel r unoff to the foot. There is blunted arterial upstroke and monophasic waveforms seen throughout the ca lf vessels. Velocities in the calf arteries measure up to 124 cm/s. The dorsalis pedis artery is watters nt with velocities measuring up to 24 cm/s. Soft tissue edema is noted in the foot/calf. Left lower extremity: Atherosclerotic plaque and irregularity is seen throughout the arteries of the left lower extremity. There are triphasic arterial waveforms in the common femoral artery with veloci ties measuring up to 70 cm/s. The profunda femoris artery is patent with velocities measuring up to 6 1 cm/s. There are mildly elevated velocities within the proximal superficial femoral artery, which me asure up to 218 cm/s. There are biphasic waveforms in the lgl-[id number] superficial femoral artery wi th velocities measuring up to 84 cm/s. There is blunted arterial upstroke and a popliteal artery with biphasic waveforms and velocities measuring up to 79 cm second. There is three-vessel runoff to the foot. There are blunted arterial waveforms throughout the calf arteries with [id number] f low. Velocities in the calf arteries measure up to 74 cm/s. The dorsalis pedis artery is patent with velocities measuring up to 43 cm/s. IMPRESSION: 1. Findings of peripheral vascular disease as above. 2. Elevated velocities within the proximal left superficial femoral artery suggest stenosis. 3. No elevated velocities are seen throughout the right lower extremity arteries. 4. No focal vessel cut off is clearly identified in either leg. Dictated: 08/03/2024 12:19 PM Transcribed: 08/03/2024 12:59 PM Evangelista [id number] [email or web address] Electronically signed by: Geovani Mcdermott M.D. 08/03/2024 1:22 PM
--- NOTE | 2024-08-03 17:25 | Vascular Medicine Consultation ---
Date of Consultation August 03, 2024 Assessment & Plan (1) Diabetic foot infection: 2. PAD 3. Type 2 diabetes 4. Acute HFpEF 5. Paroxysmal AF/Tachy-reema 6. Suspected CVI Exam and non-invasive vascular testing suggestive of severe arterial insufficiency. High risk wounds for limb loss and feel threatened limb would potentially benefit from revascularization. Review of arterial imaging suggestive of right lower extremity inflow disease and infrapopliteal disease. Appears to have SFA/popliteal and infrapopliteal disease on the left. Recommend proceeding with bilateral LE angiogram and possible intervention. Discussed risks, benefits, alternatives of procedure and they are willing to pro ceed. Tentatively plan on procedure via right radial artery on 08/06/2024. Hold Eliquis evening prior to procedure. History of Present Illness Attending Physician: Crystal De Souza MD History of Present Illness Ms. Henning is a 69-year-old woman seen today for lower extremity ulceration in the setting of PAD. Prior medical history remarkable for HFpEF, paroxysmal atrial fibrillation/tachybradycardia syndrome, nonobstructive CAD, prior possible thromboembolic event to her toe, hypertension, dyslipidemia type 2 diabetes and COPD, depression. Prior smoker quit 18 years ago. Admitted currently with acute heart failure, failure to thrive. Has basically been chair bound because unable to walk due to right leg pain. She has responded to IV diuretics and lower extremity edema significantly improved She reports longstanding bilateral (right greater than left) wounds with associated pain. Previously intermittently followed by [facility] wound [facility]. Wounds deteriorate over the last few weeks. Seen recently by podiatry and plan for debridement later this week. Has nonpalpable pulses on right. Dopplerable pulses on left Arterial duplex today showed monophasic, diminished waveforms in the right suggestive of possible inflow disease, also appears to have occluded peroneal. On left monophasic waveforms in the SFA with at least 50% stenosis, diminished monophasic waveforms below the knee. Allergies Allergy/AdvReac Type Severity Reaction Status Date / Time ciprofloxacin [Cipro] Allergy Mild SHORTNESS Verified 07/31/24 20:15 OF BREATH miconazole Allergy Mild Rash Verified 07/31/24 20:15 empagliflozin Allergy Unknown Unknown Verified 07/31/24 20:15 [From Jardiance] metformin Allergy Unknown Unknown Verified 07/31/24 20:15 Home Medications Medication Instructions Recorded Confirmed Type methimazole 10 mg tablet 10 mg PO QAM 07/20/22 07/31/24 History sitagliptin phosphate 100 mg 100 mg PO QDB 07/20/22 07/31/24 History tablet (Januvia) metoprolol succinate 25 mg 25 mg PO BID #60 tabs 09/04/22 07/31/24 Rx tablet,extended release 24 hr amiodarone 200 mg tablet 200 mg PO QAM 07/31/24 07/31/24 History apixaban 5 mg tablet (Eliquis) 5 mg PO QAM 07/31/24 07/31/24 History aspirin 81 mg tablet,delayed 81 mg PO QAM 07/31/24 07/31/24 History release furosemide 40 mg tablet 40 mg PO BID 07/31/24 07/31/24 History oxycodone 10 mg tablet 10 mg PO Q4 PRN Pain 07/31/24 07/31/24 History pantoprazole 40 mg tablet,delayed 40 mg PO QAM 07/31/24 07/31/24 History release potassium chloride 20 mEq 20 meq PO QAM 07/31/24 07/31/24 History tablet,extended release(part/cryst) (Klor-Con M) sertraline 50 mg tablet (Zoloft) 50 mg PO DAILY PRN USES FOR ANXIETY 07/31/24 07/31/24 History tiotropium bromide 1.25 2 puff inhalation DAILY PRN 07/31/24 07/31/24 History mcg/actuation mist for inhalation Shortness Of Breath (Spiriva Respimat) Patient History Surgical History No pertinent past surgical history Social History Smoking Status: Former smoker Tobacco Type: Cigarettes Smoking End Date: tamia >10 years ago; Second Hand Exposure: No; Tobacco Cessation Education Requested by Patient: No Hx Alcohol Use: No Hx Substance Use: No Preferred Language: Kinyarwanda Communication Ability: Effective Freight Inspector Required: No Beliefs That Will Affect Care: None marital status: Single Current Living Situation: Significant Other Current Living Situation Comment: Lives at home with Cody Other Information That Helps Us Care for You: No Feels Safe at Home: Yes Safety Concerns: Feels Safe At This Time Assistive Devices: Mechanical Lift Review of Systems Review of Systems: All systems reviewed & are unremarkable except as noted in HPI & below Physical Exam Physical Exam: General: Comfortable, no acute distress Eyes: Sclerae anicteric Lungs: Clear to auscultation bilaterally Cardiac: Irregular irregular, 2 out of 6 holosystolic murmur heard best at the left lower sternal border Abdomen: Soft, nontender Psych: Alert orient x3, normal affect and mood Extremities/Vascular: -- 2+ radial bilaterally -- Nonpalpable femoral pulse on right, 1+ on the left Nonpalpable DP/PT pulses bilaterally. Normal capillary refill on left, sluggish on right --Trace to 1+ bilateral lower extremity edema to mid alfaro -- Evidence of stasis dermatitis bilaterally left greater than right -- Ulcer: Wound images reviewed. Deep ulceration involving RT anterior ankle, eschar over entire surface of right heel Patient seen today in the setting of slow/non-healing LE ulceration. Multiple ulcerations on plantar 2nd through 4th digits Results & Data Vital Signs (Past 12 Hours) Vital Signs Temp Pulse Resp BP BP Pulse Ox O2 Del Method 08/03/24 16:47 110/72 08/03/24 15:09 99.0 F 46 L 16 99/46 L 99 Nasal Cannula 08/03/24 11:59 97.9 F 50 L 17 115/62 99 Nasal Cannula 08/03/24 08:00 Nasal Cannula 08/03/24 07:18 98.4 F 50 L 9 L 113/54 L 97 Nasal Cannula O2 Flow Rate 08/03/24 16:47 08/03/24 15:09 3 08/03/24 11:59 3 08/03/24 08:00 2 08/03/24 07:18 3 PG Care Time/CCT Total # of Minutes Spent Total Time Spent with Patient: Total time spent is greater than 50% in coordination of care (as documented) at patient's floor/unit and/or counseling patient: Coding Level of Care Code 10609 INT INP/OBS CARE 2/MIN Diagnoses Diabetic foot infection E11.628; L08.9
--- NOTE | 2024-08-03 21:31 | Podiatry Consultation ---
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 Discussed at length etiology and treatment of b/l nonhealing ulcers. These wounds are profound and extensive, with very poor prognosis. Her arterial doppler is promising, but overall the lower extremities do not support these findings; they appear clinically consistent with advanced vascular disease. In her case, she likely has profound small vessel disease leading to these nonhealing wounds; her pressure ulcerations are also concerning to the heel. She will require sharp debridement of these ulcerations, which we can plan on performing . Until then, the wounds were cleaned by wound care today and I redressed them with aquacel ag and optifoam. Should continue a ggressive heel offloading with prevalon boots. Continue IV antibiotics. Will follow. History of Present Illness Reason for Consultation: Bilateral lower extremity wounds Attending Physician: Crystal De Souza MD History of Present Illness Patient seen at bedside in ICU. Just back from arterial doppler. She states that over the last few months she has developed worsening ulcerations to the bilateral lower extremities. She states that she has been under the care of the [facility], who has been performing wound care actively, for several weeks. She has not seen improvement and presented to the ED here with worsening breathing and signs/symptoms of infection. We were consulted to assess these wounds and decrease infection to the lower extremity. Since admission, she is feeling better but still with difficulty breathing. Allergies Allergy/AdvReac Type Severity Reaction Status Date / Time ciprofloxacin [Cipro] Allergy Mild SHORTNESS Verified 07/31/24 20:15 OF BREATH miconazole Allergy Mild Rash Verified 07/31/24 20:15 empagliflozin Allergy Unknown Unknown Verified 07/31/24 20:15 [From Jardiance] metformin Allergy Unknown Unknown Verified 07/31/24 20:15 Home Medications Medication Instructions Recorded Confirmed Type methimazole 10 mg tablet 10 mg PO QAM 07/20/22 07/31/24 History sitagliptin phosphate 100 mg 100 mg PO QDB 07/20/22 07/31/24 History tablet (Januvia) metoprolol succinate 25 mg 25 mg PO BID #60 tabs 09/04/22 07/31/24 Rx tablet,extended release 24 hr amiodarone 200 mg tablet 200 mg PO QAM 07/31/24 07/31/24 History apixaban 5 mg tablet (Eliquis) 5 mg PO QAM 07/31/24 07/31/24 History aspirin 81 mg tablet,delayed 81 mg PO QAM 07/31/24 07/31/24 History release furosemide 40 mg tablet 40 mg PO BID 07/31/24 07/31/24 History oxycodone 10 mg tablet 10 mg PO Q4 PRN Pain 07/31/24 07/31/24 History pantoprazole 40 mg tablet,delayed 40 mg PO QAM 07/31/24 07/31/24 History release potassium chloride 20 mEq 20 meq PO QAM 07/31/24 07/31/24 History tablet,extended release(part/cryst) (Klor-Con M) sertraline 50 mg tablet (Zoloft) 50 mg PO DAILY PRN USES FOR ANXIETY 07/31/24 07/31/24 History tiotropium bromide 1.25 2 puff inhalation DAILY PRN 07/31/24 07/31/24 History mcg/actuation mist for inhalation Shortness Of Breath (Spiriva Respimat) Patient History Surgical History No pertinent past surgical history Social History Smoking Status: Former smoker Tobacco Type: Cigarettes Smoking End Date: tamia >10 years ago; Second Hand Exposure: No; Tobacco Cessation Education Requested by Patient: No Hx Alcohol Use: No Hx Substance Use: No Preferred Language: Maltese Communication Ability: Effective Sanitary Landfill Operator Required: No Beliefs That Will Affect Care: None marital status: Single Current Living Situation: Significant Other Current Living Situation Comment: Lives at home with Cody Other Information That Helps Us Care for You: No Feels Safe at Home: Yes Safety Concerns: Feels Safe At This Time Assistive Devices: Mechanical Lift Review of Systems Review of Systems: All systems reviewed & are unremarkable except as noted in HPI & below Constitutional: no fever, no chills and no fatigue Eyes: no problem reported Ear, Nose, Mouth, Throat: no problem reported Respiratory: no problem reported Cardiovascular: + edema; no problem reported Gastrointestinal: no nausea, no vomiting and no problem reported Genitourinary: no problem reported Musculoskeletal: no problem reported Integumentary: + skin ulcer, + wounds and + erythema Neurologic: + loss of sensation, + numbness and + pa resthesia; no generalized weakness Psychiatric: no problem reported Physical Exam Physical Exam: Lower extemity exam: Diffuse pitting edema, cellulitis, and extensive wound formation noted to b/l lower extremities. Largest uclerations are noted to the right anterior ankle where the TA tendon is immediately visualized, the dorsal foot, and the plantar heel, with a large dorsal ulceration to the left midfoot and under the left heel. No debridement performed due to pain. Please see inpatient wound images for definitive imaging of these ulcers. DP/PT pulses nonpalpable. CFT brisk to digits of left, delayed on the right. Pain sensation intact; light touch diminished. cabb Constitutional: WD/WN, vitals as above + ill appearing and + obese; no acute distress Eyes: PERRL, conjunctivae normal, anicteric sclerae ENMT: external ear and nose normal, oropharynx normal Neck: trachea midline, no thyromegaly normal visual inspection Respiratory: normal respiratory effort; no respiratory distress Cardiovascular: Rate/Rhythm: regular rate and regular rhythm Chest (Breasts): Chest: normal inspection of chest Gastrointestinal (Abdomen): Inspection/Auscultation: abdomen normal to inspection Percussion/Palpation: + abdomen tender and abdomen soft Musculoskeletal: no cyanosis or clubbing, extremities motor strength 5/5 Head/Neck/Chest: normocephalic and head atraumatic Extremities: extremities normal to inspection Neurologic: awake; no focal motor deficits Psychiatric: A+Ox3, euthymic affect Results & Data Vital Signs (Past 12 Hours) Vital Signs Temp Pulse Resp BP BP Pulse Ox O2 Del Method 08/03/24 19:15 36.4 C L 50 L 16 106/63 91 Nasal Cannula 08/03/24 16:47 110/72 08/03/24 15:09 37.2 C 46 L 16 99/46 L 99 Nasal Cannula 08/03/24 11:59 36.6 C 50 L 17 115/62 99 Nasal Cannula O2 Flow Rate 08/03/24 19:15 3 08/03/24 16:47 08/03/24 15:09 3 08/03/24 11:59 3
[2024-08-03] MEDS: MAGNESIUM SULFATE / D5W 1 GM/100 ML BAG IV SCH (23:37)
[2024-08-04] MEDS ORDERED: POLYETHYLENE (MIRALAX) 17 GM PACK PO PRN (01:13)
[2024-08-04] MEDS: PLASMA-LYTE A 500 ML IV ONE (01:35)
[2024-08-04] MEDS: POLYETHYLENE (MIRALAX) 17 GM PACK PO ONE (01:56)
--- NOTE | 2024-08-04 04:07 | Communication Note ---
Date of Service: August 04, 2024 Notified by nursing that patient was at bedside commode at approximately 23:00 when her HR jumped to 170s, after returning to bed her HR stayed at 110s-120s. EKG obtained which showed afib RVR. I reviewed her most recent labs, added additional mag/potassium repletion. Nursing notified me that patient was feeling very constipated, has not had a bowel movement in several days- added Miralax and a suppository. Reviewed prior notes, patient has tachy reema and history of afib with RVR in the past. Noted that patient has been diuresing successfully so far this admission, but in setting of afib w/RVR I added a small fluid bolus (500mL) to see if her rate responded to additional fluids. I went to bedside and examined patient, heart was irregularly irregular on auscultation. Patient denies symptoms other than feeling constipated. Resident Activity Tracking Resident Involvement: Resident Care Provided Care Provided: Adult Hospital Medicine
--- NOTE | 2024-08-04 06:10 | Electrocardiogram Report ---
Test Reason : Blood Pressure : */* mmHG Vent. Rate : 42 BPM Atrial Rate : * BPM P-R Int : * ms QRS Dur : 92 ms QT Int : 508 ms P-R-T Axes : * 144 133 degrees QTcB Int : 424 ms Sinus bradycardia Right axis deviation Abnormal ECG When compared with ECG of 04-Sep-2022 15:02, Sinus bradycardia has replaced Atrial fibrillation Vent. rate has decreased by 93 bpm QRS axis Shifted right T wave inversion now evident in Anterior leads Confirmed by Reid Hernandez ([id number]) on 08/04/2024 6:10:31 AM Referred By: REFERRED SELF Confirmed By: Reid Hernandez
[2024-08-04 06:21] LABS: Hematocrit (blood only) 42.7 % (37.0-47.0); Hemoglobin 12.9 g/dl (12.0-16.0); Mean Corpuscular Hemoglobin 25.4 pg (25.0-34.0); Mean Corpuscular Hgb Conc 30.2 g/dL (32.0-36.0); Mean Corpuscular Volume 84.1 fL (80.0-100.0); Mean Platelet Volume 10.4 fL (9.4-12.4); Platelet Count 385 K/uL (130-400); RDW Coefficient of Variation 20.5 % (11.5-14.5); RDW Standard Deviation 61.1 fL (36.4-46.3); Red Blood Count 5.08 M/uL (4.20-5.40); White Blood Count 11.42 K/ul (4.8-10.8)
[2024-08-04 07:00] LABS: BUN Creatinine Ratio 13.8 (10-20); Calcium 7.6 mg/dl (8.6-10.3); Magnesium 2.5 mg/dl (1.7-2.4); Potassium 3.4 mmol/L (3.5-5.1)
[2024-08-04] MEDS: bisacodyL 10 MG SUPP PR STA ×2 (07:28→08:53)
--- NOTE | 2024-08-04 07:53 | Hospitalist Progress Note ---
Date of Service August 04, 2024 Assessment & Plan (1) Acute on chronic heart failure with preserved ejection fraction (HFpEF): Plan: Appears to be due to acute on chronic heart failure with preserved ejection fraction; noncompliant on home diuretic With anasarca and CXR with pulm edema - Last echocardiogram 08/01/24 showed EF 60 to 65%, no motion wall abnormalities, right ventricle mildly dilated, severe pulmonary hypertension, worsening tricuspid regurg - BNP 1480 on admission - Heart healthy, low sodium diet - Strict I&O monitoring - Daily weights - cardiology following Hypokalemia - resumed home potassium 08/02 due to K+ level 3.3 - additional potassium repletion throughout past few days, patient with resistance to taking potassium - addition of spironolactone 08/03 - 3 gm magnesium given 08/03 - K+ still 3.4 on 08/04, patient refused additional 20Meq, with recheck in AM, addition of spironolactone yesterday will likely improve K+ - Continue with Lasix 40 mg IV twice daily if BP tolerates - Daily BMP, Magnesium (2) Acute hypoxemic respiratory failure: Plan: Due to underlying CHF - Oxygen per nasal cannula to maintain saturation greater than 90% - patient not on oxygen at home - patient denies dyspnea, cough, dizziness/lightheadedness - Wean off O2 as tolerated; currently on 3 L nasal cannula (3) Diabetic foot infection: Plan: Chronic venous stasis and ulcerations bilateral lower extremities showing necrosis and tendon exposure on dorsal right foot - recent A1c 08/01/2024 5.7% - afebrile, VSS, no leukocytosis - no signs of systemic infection at this time - no drainage noted from the wounds - pain management with Tylenol and Home oxycodone dose as needed - Wound cultures showed pseudomonas aeruginosa - susceptible to Zosyn; along with Kerstersia gyiorum which will also be covered by Zosyn - no transition to PO abx due to allergy to quinolones and prolonged QTC - Both blood cultures showed no growth to date - Vancomycin discontinued 08/03 - Wound care consulted; see images 08/03 - Podiatry consulted - planning for surgical debridement 08/05 - continue with waffle boots - will need to hold Eliquis after AM dose on 08/04 PAD - likely component of PAD as distal pulses not able to be palpitated - lipid panel showing total cholesterol and LDL WNL, HDL low () - continue daily baby aspirin, high intensity statin started 08/02 - arterial Doppler confirming peripheral vascular disease - consulted Dr. Tolbert for vascular management; planning for bilateral LE angiogram Monday 08/06 (4) Persistent atrial fibrillation: Plan: Paroxysmal atrial fibrillation on Eliquis Chronic history of tachybradycardia syndrome - seen by cardiology outpatient previously; does not follow with them closely discussed potential for A-fib ablation in the past - Cardiology following - will need outpatient follow-up with electrophysiology to discuss A-fib ablation versus pacemaker for tachybradycardia syndrome - not a candidate for pacemaker at this time given wounds - sinus bradycardia on admission ->converted to a fib with RVR (HR up to 180) 08/04 -> back into sinus bradycardia 08/04 - thyroid panel showing hypothyroidism; possibly secondary to amiodarone use vs overmedication with methimazole - Continue Eliquis - discontinued metoprolol on admission - discussed with cardiology, restarted patient on 100 mg amiodarone 08/04 (200 mg at home - lowered dose due to bradycardia) - monitor thyroid function and transaminase levels while on amiodarone (repeat labs 08/15) (5) Nausea & vomiting: Plan: Present on admission, continued - CT of abd/pelv on admission so no acute concerns - Zofran IV as needed Constipation: - started on iron supplement 08/03, contributing to constipation and also can contribute to nausea - Colace and miralax prn - Bisacodyl suppository 08/04 with bowel movement (6) Diabetes mellitus type 2 in obese: Plan: history of type 2 diabetes with diabetic foot ulcers - Diabetic diet - Hold home Januvia - A1c 5.7 - NovoLog discontinued 08/03 as patient needing minimal insulin and hypoglycemic at times - glucose stable (7) Hyperthyroidism: Plan: - She takes methimazole and amiodarone chronically - Thyroid function on admission showing hypothyroidism; TSH 9.3, T3 1.83 - continue to hold methimazole and amiodarone - follow TSH in 2 weeks (repeat 08/15) (8) Hypertension: Plan: Hypotensive on admission, remains somewhat soft/low normal - continue to hold metoprolol; will likely discontinue - Will continue with IV Lasix as BP allows (9) Sacral decubitus ulcer, stage II: Plan: - wound care consulted *Pressure ulcers of right and left buttock, stage 3 (10) Anemia: Plan: appears to be chronic - Hypochromic microcytic anemia - Iron panel and ferritin level confirm iron deficiency anemia - iron supplement started 08/03 with stool softeners as needed, see constipation above (11) CAD (coronary artery disease): Plan: history of nonobstructive CAD - Has been on atorvastatin 80 mg daily in the past - Cardiology following - Recommended to resume high intensity statin - lipid panel showing low HDL, reminder WNL - restart atorvastatin 80 mg 08/02 (12) Hypocalcemia: Plan: - calcium consistently low, vit d low at 13 - supplement with Ca + vit D started 08/03 Plan Chronic stable diagnoses: Depression continue sertraline VTE ppx: Eliquis Diet: heart healthy, low-sodium, diabetes diet Code status: full Dispo: PCU/telemetry; wound debridement 08/05 with podiatry and angiogram 08/06 with vascular; will need inpatient PT once medically stable Admission and Anticipated Discharge Date Admission Date: July 31, 2024 Supervising Physician Co-Signing Physician Notes Physician Fur Finisher Seamstress Supervision note: I have not personally seen and examined the patient, but discussed and verified the sharma points of the history and physical along with the plan with ROXANNE Lino with the following exceptions and/or additions: None Subjective Patient seen at bedside and doing well. She is nauseous this morning with 1 episode of emesis. She stated that she has not been eating because she does not like the hard food here. She takes her morning medications without eating which is likely contributing to her daily nausea. she stated that her bilateral foot pain is improving, it is not burning and tingling as much today. She does not like to take many medications and was refusing her potassium this morning, discussed risks of low potassium with the patient, in which she provided verbal understanding. She has been constipated recently but on examination she stated she had to have a bowel movement. She is planning for debridement tomorrow and angiogram Friday. Tele: Converted into A-fib at 2255 overnight, heart rate going as high as 180. Back into sinus bradycardia at 0937. Review of Systems Review of Systems: See HPI Physical Exam Physical Exam: The patient is awake, alert and oriented 3, well developed and well nourished, normocephalic and atraumatic, in no acute distress. Non-toxic appearing. HEENT- EOMI, mucous membranes moist. Hearing grossly intact. Heart-normal S1 and S2. No murmurs, rubs or gallops. Lungs-clear bilaterally, no respiratory distress, no accessory muscle use. 2L O2 via nasal cannula. Abdomen-normal bowel sounds and soft. No ascites noted. Non-tender. Extremities- no clubbing, cyanosis. Bilateral lower extremity edema, bilateral waffle boots. Bilateral erythema suggestive of chronic venous stasis dermatitis. Rheumatologic-decreased range of motion due to pain. Psychiatric- anxious affect. Results & Data Results & Data Vital Signs (Past 12 Hours) Vital Signs Temp Pulse Pulse Resp BP BP Pulse Ox 08/04/24 07:10 36.6 C 104 H 18 108/70 96 08/04/24 03:07 113 H 16 95/70 L 98 08/04/24 02:41 36.8 C 115 H 18 109/73 98 08/03/24 23:25 36.5 C 113 H 18 103/86 99 08/03/24 23:24 36.5 C 133 H 20 115/87 97 08/03/24 22:00 08/03/24 21:58 44 L O2 Del Method O2 Flow Rate 08/04/24 07:10 Nasal Cannula 2 08/04/24 03:07 Nasal Cannula 3 08/04/24 02:41 Nasal Cannula 2 08/03/24 23:25 Nasal Cannula 2 08/03/24 23:24 Nasal Cannula 3 08/03/24 22:00 Nasal Cannula 2 08/03/24 21:58 Laboratory Results reviewed cbc, bmp, vit d PG Care Time/CCT Total # of Minutes Spent Total Time Spent with Patient: Total time spent is greater than 50% in coordination of care (as documented) at patient's floor/unit and/or counseling patient: Coding [place] [address] SUB INP/OBS CARE 3/50MIN Patient Type Established Medical Decision Making High Complexity Diagnoses Acute on chronic heart failure with preserved ejection fraction (HFpEF) I50.33 Acute hypoxemic respiratory failure J96.01 Diabetic foot infection E11.628; L08.9 Persistent atrial fibrillation I48.19 Nausea & vomiting R11.2 Diabetes mellitus type 2 in obese E11.69; E66.9 Hyperthyroidism E05.90 Hypertension I10 Sacral decubitus ulcer, stage II L89.152 Anemia D64.9 CAD (coronary artery disease) I25.10 Hypocalcemia E83.51
--- NOTE | 2024-08-04 07:59 | Cardiology Progress Note ---
Date of Service August 04, 2024 Assessment & Plan (1) Acute on chronic heart failure with preserved ejection fraction (HFpEF): (2) Bradycardia: (3) CAD (coronary artery disease): (4) Paroxysmal atrial fibrillation: (5) Pulmonary hypertension: (6) Tricuspid regurgitation: (7) Anticoagulant long-term use: (8) Hypertension: (9) Dyslipidemia: Plan ASSESSMENT/PLAN: 1. Acute on chronic heart failure with preserved EF: Volume status has improved with diuresis. Unfortunately, received IV fluids overnight. She remains hypervolemic. Continue Lasix 40 mg IV twice daily. Try to attain 1 to 2 L net negative fluid balance daily. Strict I's and O's. Daily weights. Low-sodium diet, less than 2000 mg daily. Adverse reaction reported for SGLT2 inhibitor. Unfortunately, medication noncompliance seems to have played a significant role here as she was not taking her diuretic at home as prescribed. Spironolactone initiated, especially in the setting of hypokalemia and her resistance to taking potassium supplementation. 2. Bradycardia: While in sinus, has been mostly in the 40s overnight up to 50s during the day. Tachybradycardia syndrome as she is typically tachycardic while in A-fib. Not a great candidate for pacemaker currently with her open lower extremity wounds. Discussed with the EP. Can revisit possible pacemaker in the future when her overall infection risk improves. 3. CAD: Medical therapy was recommended for mostly nonobstructive CAD. Had been on atorvastatin 80 mg daily in the past. High intensity statin therapy. Discontinued beta-love as above. 4. Paroxysmal atrial fibrillation: Has been seen by EP at [facility] [place] and [facility] [place]. Both in stitutions discussed potential for A-fib ablation. Has been in sinus bradycardia despite holding of amiodarone and metoprolol. A-fib with RVR began overnight on 08/03/2024. Amiodarone 200 mg once daily p.o. initiated by primary hospitalist service. She was in A-fib during my visit this morning but the chart indicates that she has since converted. Repeat ECG. Tachybradycardia syndrome, but not optimal candidate for pacemaker with her being high risk for bacteremia with her open wounds. As tolerated bradycardia well thus far and has been asymptomatic. Continue amiodarone for now. Case has been reviewed with electrophysiology. Monitor TSH and transaminase levels while on amiodarone. As an outpatient, can determine best long-term treatment option for her. Recommend follow-up with electrophysiology. Continue anticoagulation for stroke risk reduction. 5. Anticoagulation: She has not been taking Eliquis as prescribed, choosing to take it only once daily while at home. Discussed the importance of taking it twice daily whenever she is discharged. Continue Eliquis 5 mg twice daily. Monitor CBC and renal function. 6. Tricuspid regurgitation: May improve with diuresis as above. Continue to monitor. 7. Pulmonary hypertension: Likely related to her hypervolemic state. Diurese as above. 8. Dyslipidemia: High intensity statin therapy as discussed. 9. Hypotension: Has a history of hypertension but has been mildly hypotensive here, however mostly normotensive today. 10. Lower extremity wounds: Podiatry has been consulted by primary hospitalist service. 11. PAD: Dr. Tolbert is seen from a vascular perspective and plans on lower extremity angiography later this week. 12. Disposition: When discharged, follow-up with Dr. Farr, her primary pin setter. She wishes to follow-up in the [facility] office. Patient care communicated with Lesvia Lino PA-C of the primary hospitalist service. Admission and Anticipated Discharge Date Admission Date: July 31, 2024 Subjective Patient seen this morning. She was in atrial fibrillation but denied palpitations, chest pain, or shortness of breath. She seems to be asymptomatic in this regard. She received IV fluids overnight by the covering coding specialist home health once A-fib occurred. She denies bleeding, syncope, near syncope. Her significant other presented to the bedside during the visit. Physical Exam Physical Exam: Gen.: No acute distress. Alert. HEENT: Anicteric sclera. Neck: Elevated JVD. Cardiac: Irregularly irregular. Normal S1-S2. 1/6 systolic murmur. Pulmonary: Decreased breath sounds bilaterally, but otherwise clear to auscultation bilaterally without wheezes, rales, or rhonchi. Abdomen: Soft, nontender, nondistended, with normoactive bowel sounds. No bruits noted. Extremities: 1+ radial pulses bilaterally. 1-2+ bilateral lower extremity edema to the knees. No cyanosis. Results & Data Vital Signs (Past 12 Hours) Vital Signs Temp Pulse Pulse Resp BP BP Pulse Ox 08/04/24 07:10 36.6 C 104 H 18 108/70 96 08/04/24 03:07 113 H 16 95/70 L 98 08/04/24 02:41 36.8 C 115 H 18 109/73 98 08/03/24 23:25 36.5 C 113 H 18 103/86 99 08/03/24 23:24 36.5 C 133 H 20 115/87 97 08/03/24 22:00 08/03/24 21:58 44 L O2 Del Method O2 Flow Rate 08/04/24 07:10 Nasal Cannula 2 08/04/24 03:07 Nasal Cannula 3 08/04/24 02:41 Nasal Cannula 2 08/03/24 23:25 Nasal Cannula 2 08/03/24 23:24 Nasal Cannula 3 08/03/24 22:00 Nasal Cannula 2 08/03/24 21:58 Intake & Output 08/02/24 08/03/24 08/04/24 08/05/24 06:59 06:59 06:59 06:59 Intake Total 1710 / 1710 1340 / 1340 1620 / 1620 Output Total 3375 / 3375 2750 / 2750 1950 / 1950 Balance -1665 / -1665 -1410 / -1410 -330 / -330 Weight 177 lb 0.499 oz 176 lb 9.444 oz 171 lb 1.259 oz Laboratory Results Laboratory Results - last 24 hr 08/03/24 08/04/24 08/04/24 11:51 05:25 07:08 WBC 11.42 H RBC 5.08 Hgb 12.9 Hct 42.7 MCV 84.1 MCH 25.4 MCHC 30.2 L RDW Std Deviation 61.1 H RDW Coeff of Rasheed 20.5 H Plt Count 385 MPV 10.4 Sodium 138 Potassium 3.4 L Chloride 96 L Carbon Dioxide 36 H Anion Gap 6 BUN 9 Creatinine 0.65 Est Cr Clr Drug Dosing 81.0 eGFR 96.44 BUN/Creatinine Ratio 13.8 Glucose 77 POC Glucose 89 73 Calcium 7.6 L Magnesium 2.5 H 25-OH Vitamin D Total 13.5 L Diagnostic Findings Labs reviewed and notable for mild hypokalemia, normal renal function, mild leukocytosis, normal hemoglobin. ECG personally reviewed 08/03/2024 2311: A-fib RVR [address]/T wave abnormality. Vascular medicine consult reviewed. Hospitalist communication note reviewed from 08/04/2024: Patient received 500 mL fluid bolus due to A-fib with RVR. Telemetry personally reviewed: Sinus bradycardia transition to A-fib with RVR on 08/03/2024 at approximately 2255. Heart rate this morning when evaluating, was mostly low 100s. Medications Administered Current Inpatient Medications Acetaminophen (Acetaminophen 325 Mg Tab) 650 mg PO Q4H PRN PRN Reason: Pain or Fever Stop: 08/30/24 23:17 Last Admin: 08/02/24 10:11 Dose: 650 mg Apixaban (Apixaban 5 Mg Tablet) 5 mg PO BID [facility] Stop: 08/31/24 08:59 Last Admin: 08/03/24 20:46 Dose: 5 mg Aspirin (Aspirin 81 Mg Ectab) [facility] [place]: 08/31/24 08:59 Last Admin: 08/03/24 08:45 Dose: 81 mg Atorvastatin Calcium (Atorvastatin 40 Mg Tab) [facility] [place]: 09/01/24 08:59 Last Admin: 08/03/24 08:46 Dose: 80 mg Calcium/Vitamin D (Calcium 600mg + Vit D 400 Iu Tab) 1 tab PO BID [facility] Stop: 09/02/24 08:59 Last Admin: 08/03/24 20:46 Dose: 1 tab Dextrose (Dextrose 50% 50 Ml Syringe) 25 - 50 ml IV UD PRN; Protocol PRN Reason: Hypoglycemia Protocol Stop: 08/30/24 23:17 Docusate Sodium (Docusate Sodium 100 Mg Cap) 100 mg PO BID PRN PRN Reason: Constipation Stop: 09/01/24 13:03 Last Admin: 08/03/24 09:20 Dose: 100 mg Ferrous Sulfate (Ferrous Sulfate 325 Mg Tab) 325 mg PO QAM [facility] Stop: 09/02/24 08:59 Last Admin: 08/03/24 08:46 Dose: 325 mg Furosemide (Furosemide 40 Mg/4 Ml Vial) 40 mg IV BID17 [facility] Stop: 08/31/24 16:59 Last Admin: 08/03/24 16:50 Dose: 40 mg Glucagon (Glucagon For Inj 1 Mg Vial) 1 mg SQ UD PRN; Protocol PRN Reason: Hypoglycemia Protocol Stop: 08/30/24 23:17 Glucose (Glucose 40% Gel 15 Gm Tube) 15 - 30 gm PO UD PRN; Protocol PRN Reason: Hypoglycemia Protocol Stop: 08/30/24 23:17 Glucose (Glucose 10 Tab/Tube) 4 - 8 tab PO UD PRN; Protocol PRN Reason: Hypoglycemia Protocol Stop: 08/30/24 23:17 Piperacillin Sod/Tazobactam Sod (Zosyn) 4.5 gm in 100 mls @ 25 mls/hr IV Q8H ELIAN; Protocol Stop: 08/08/24 01:59 Last Infusion: 08/04/24 05:34 Dose: Infused Miscellaneous (Carbohydrates For Hypoglycemia ) 15 - 30 gm PO UD PRN PRN Reason: Hypoglycemia Protocol Stop: 08/30/24 23:17 Ondansetron HCl (Ondansetron Inj 2 Mg/Ml 2 Ml Vial) 4 mg IV Q4H PRN PRN Reason: Nausea Stop: 08/31/24 18:19 Last Admin: 08/03/24 09:49 Dose: 4 mg Oxycodone HCl (Oxycodone Hcl Ir 5 Mg Tab (Immediate Release)) 10 mg PO Q4H PRN PRN Reason: Pain Stop: 08/15/24 13:56 Last Admin: 08/04/24 00:25 Dose: 10 mg Pantoprazole Sodium (Pantoprazole 40 Mg Tab) 40 mg PO QAM [facility] Stop: 08/31/24 08:59 Last Admin: 08/03/24 08:47 Dose: 40 mg Polyethylene Glycol (Polyethylene (Miralax) 17 Gm Pack) 17 gm PO BID PRN PRN Reason: Constipation Stop: 09/03/24 01:12 Potassium Chloride (Potassium Chloride Crtab 20 Meq Tabcr) 20 meq PO QAM [facility] Stop: 09/01/24 08:59 Last Admin: 08/03/24 08:58 Dose: 20 meq Sertraline HCl (Sertraline Hcl 50 Mg Tablet) 50 mg PO DAILY [facility]IAN Stop: 09/01/24 08:59 Last Admin: 08/03/24 08:47 Dose: 50 mg Spironolactone (Spironolactone 25 Mg Tab) 25 mg PO QAM ELIAN Stop: 09/03/24 08:59 Umeclidinium Ulysses (Umeclidinium Ulysses 62.5mcg/Blister 7 Puffs/Inhaler) 1 puffs INH DAILY ELIAN; Protocol Stop: 09/01/24 08:59 Last Admin: 08/03/24 08:48 Dose: 1 puffs PG Care Time/CCT Total # of Minutes Spent Total Time Spent with Patient: Total time spent is greater than 50% in coordination of care (as documented) at patient's floor/unit and/or counseling patient: Coding Level of Care Code 54902 SUB INP/OBS CARE 3/50MIN Diagnoses Acute on chronic heart failure with preserved ejection fraction (HFpEF) I50.33 Bradycardia R00.1 CAD (coronary artery disease) I25.10 Paroxysmal atrial fibrillation I48.0 Pulmonary hypertension I27.20 Tricuspid regurgitation I07.1 Anticoagulant long-term use Z79.01 Hypertension I10 Dyslipidemia E78.5
[2024-08-04] MEDS: SPIRONOLACTONE 25 MG TAB PO SCH (10:00)
[2024-08-04] MEDS: AMIODARONE 200 MG TAB PO SCH ×2 (10:12→14:02)
[2024-08-04] MEDS: POTASSIUM CHLORIDE CRTAB 20 MEQ TABCR PO STA (11:13)
--- NOTE | 2024-08-04 21:30 | Electrocardiogram Report ---
Test Reason : Blood Pressure : */* mmHG Vent. Rate : 39 BPM Atrial Rate : 39 BPM P-R Int : 156 ms QRS Dur : 98 ms QT Int : 656 ms P-R-T Axes : 54 125 26 degrees QTcB Int : 529 ms Marked sinus bradycardia Right axis deviation Anterior infarct , age undetermined Nonspecific ST and T wave abnormality Prolonged QT Abnormal ECG When compared with ECG of 31-Jul-2024 17:10, QT has lengthened Confirmed by Reid Hernandez ([id number]) on 08/04/2024 9:29:58 PM Referred By: REFERRED SELF Confirmed By: Reid Hernandez
--- NOTE | 2024-08-04 21:49 | Podiatry Progress Note ---
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 Arterial ultrasound reviewed. - Will plan on surgical debridement of all bilateral foot/ankle wounds tomorrow, 07/26. - NPO after midnight. - Pt amenable to this. All questions answered. Will obtain consent preoperatively. Admission and Anticipated Discharge Date Admission Date: July 31, 2024 Subjective Pt seen at bedside. No new concerns. Had her arterial ultrasound yesterday. Has felt better since admission. Has been able to tolerate her Prevalon boots well since yesterday. Review of Systems Constitutional: no fever, no chills and no fatigue Eyes: no problem reported Ear, Nose, Mouth, Throat: no problem reported Respiratory: no problem reported Cardiovascular: + edema; no problem reported Gastrointestinal: no nausea, no vomiting and no problem reported Genitourinary: no problem reported Musculoskeletal: no problem reported Integumentary: + skin ulcer, + wounds and + erythema Neurologic: + loss of sensation, + numbness and + pa resthesia; no generalized weakness Psychiatric: no problem reported Physical Exam Physical Exam: Lower extemity exam: Diffuse pitting edema, cellulitis, and extensive wound formation noted to b/l lower extremities. Largest uclerations are noted to the right anterior ankle where the TA tendon is immediately visualized, the dorsal foot, and the plantar heel, with a large dorsal ulceration to the left midfoot and under the left heel. No debridement performed due to pain. Please see inpatient wound images for definitive imaging of these ulcers. DP/PT pulses nonpalpable. CFT brisk to digits of left, delayed on the right. Pain sensation intact; light touch diminished. cabb Constitutional: WD/WN, vitals as above + ill appearing and + obese; no acute distress Eyes: PERRL, conjunctivae normal, anicteric sclerae ENMT: external ear and nose normal, oropharynx normal Neck: trachea midline, no thyromegaly normal visual inspection Respiratory: normal respiratory effort; no respiratory distress Cardiovascular: Rate/Rhythm: regular rate and regular rhythm Chest (Breasts): Chest: normal inspection of chest Gastrointestinal (Abdomen): Inspection/Auscultation: abdomen normal to inspection Percussion/Palpation: + abdomen tender and abdomen soft Musculoskeletal: no cyanosis or clubbing, extremities motor strength 5/5 Head/Neck/Chest: normocephalic and head atraumatic Extremities: extremities normal to inspection Neurologic: awake; no focal motor deficits Psychiatric: A+Ox3, euthymic affect Results & Data Results & Data Vital Signs (Past 12 Hours) Vital Signs Temp Pulse Pulse Resp BP Pulse Ox O2 Del Method 08/04/24 19:17 36.9 C 56 L 16 110/60 99 Nasal Cannula 08/04/24 16:55 50 L 115/66 08/04/24 16:14 57 L 08/04/24 15:04 36.8 C 50 L 21 108/55 L 97 Nasal Cannula 08/04/24 14:02 60 115/61 08/04/24 11:24 36.6 C 62 108/63 98 Nasal Cannula 08/04/24 10:05 54 L 117/62 O2 Flow Rate 08/04/24 19:17 3 08/04/24 16:55 08/04/24 16:14 08/04/24 15:04 2 08/04/24 14:02 08/04/24 11:24 2 08/04/24 10:05
[2024-08-05 06:59] LABS: Hematocrit (blood only) 39.9 % (37.0-47.0); Hemoglobin 12.1 g/dl (12.0-16.0); Mean Corpuscular Hemoglobin 25.3 pg (25.0-34.0); Mean Corpuscular Hgb Conc 30.3 g/dL (32.0-36.0); Mean Corpuscular Volume 83.5 fL (80.0-100.0); Mean Platelet Volume 10.6 fL (9.4-12.4); Platelet Count 352 K/uL (130-400); RDW Standard Deviation 57.1 fL (36.4-46.3); Red Blood Count 4.78 M/uL (4.20-5.40)
[2024-08-05 07:11] LABS: BUN Creatinine Ratio 14.3 (10-20); Calcium 7.7 mg/dl (8.6-10.3); Creatinine Clr Calc Pharmacy 83.6 ml/min; Magnesium 2.1 mg/dl (1.7-2.4); Potassium 3.1 mmol/L (3.5-5.1)
[2024-08-05] MEDS: DEXTROSE 50% 50 ML SYRINGE IV PRN (07:25)
[2024-08-05] MEDS: DOCUSATE SODIUM 100 MG CAP PO SCH (08:16)
--- NOTE | 2024-08-05 09:11 | History & Physical Bridge Note ---
Date of Service August 05, 2024 History & Physical Bridge Note I have examined the patient, reviewed the History & Physical and in the interval since the performance of the History & Physical I have noted the following changes of clinical significance: no changes noted. Plan for excisional debridement of b/l foot and ankle ulcerations. All questions answered. Consent obtained.
[2024-08-05] MEDS: SODIUM CHLORIDE 0.9% 500 ML IV SCH (09:29)
[2024-08-05] MEDS: Nursing to Pharmacy Communication SCH (09:40)
--- NOTE | 2024-08-05 10:30 | Cardiology Progress Note ---
Date of Service August 05, 2024 Assessment & Plan (1) Acute on chronic heart failure with preserved ejection fraction (HFpEF): (2) Bradycardia: (3) CAD (coronary artery disease): (4) Paroxysmal atrial fibrillation: (5) Pulmonary hypertension: (6) Tricuspid regurgitation: (7) Anticoagulant long-term use: (8) Hypertension: (9) Dyslipidemia: Plan ASSESSMENT/PLAN: 1. Acute on chronic heart failure with preserved EF: Volume status has improved with diuresis. She remains hypervolemic. Continue Lasix 40 mg IV twice daily. Try to attain 1 to 2 L net negative fluid balance daily. Thus far, her net fluid balance is basically even today with her surgical procedure. Will give an additional 40 mg IV Lasix. Strict I's and O's. Daily weights. Low-sodium diet, less than 2000 mg daily. Adverse reaction reported for SGLT2 inhibitor. Unfortunately, medication noncompliance seems to have played a significant role here as she was not taking her diuretic at home as prescribed. Continue spironolactone, which should help with hypokalemia and she has been refusing oral potassium supplementation. 2. Bradycardia: While in sinus, has been mostly in the 40s overnight up to 50s during the day. Tachybradycardia syndrome as she is typically tachycardic while in A-fib. Not a great candidate for pacemaker currently with her open lower extremity wounds. Discussed with the EP. Can revisit possible pacemaker in the future when her overall infection risk improves. 3. CAD: Medical therapy was recommended for mostly nonobstructive CAD. Had been on atorvastatin 80 mg daily in the past. High intensity statin therapy. Discontinued beta-love as above. 4. Paroxysmal atrial fibrillation: Has been seen by EP at [facility] and [facility] [place]. Both institutions discussed potential for A-fib ablation. Has been in sinus bradycardia despite holding of amiodarone and metoprolol. A-fib with RVR began overnight on 08/03/2024. Amiodarone 200 mg once daily p.o. initiated by primary hospitalist service. She was in A-fib during my visit this morning but the chart indicates that she has since converted. Repeat ECG. Tachybradycardia syndrome, but not optimal candidate for pacemaker with her being high risk for bacteremia with her open wounds. As tolerated bradycardia well thus far and has been asymptomatic. Continue amiodarone for now. Case has been reviewed with electrophysiology. Monitor TSH and transaminase levels while on amiodarone. As an outpatient, can determine best long-term treatment option for her. Recommend follow-up with electrophysiology. Continue anticoagulation for stroke risk reduction. 5. Anticoagulation: She has not been taking Eliquis as prescribed, choosing to take it only once daily while at home. Discussed the importance of taking it twice daily whenever she is discharged. Continue Eliquis 5 mg twice daily. Monitor CBC and renal function. 6. Tricuspid regurgitation: May improve with diuresis as above. Continue to monitor. 7. Pulmonary hypertension: Likely related to her hypervolemic state. Diurese as above. 8. Dyslipidemia: High intensity statin therapy as discussed. 9. Hypotension: Has a history of hypertension but has been mildly hypotensive here at times. Normotensive currently. 10. Lower extremity wounds/osteomyelitis: Has undergone bilateral excisional debridement ulcers and bone biopsy. Followed by podiatry and infectious disease. 11. PAD: Dr. Tolbert is seen from a vascular perspective and plans on lower extremity angiography later this week. 12. Disposition: When discharged, follow-up with Dr. Farr, her primary good humor vendor. She wishes to follow-up in the [place] office. Care co mmunicated with primary hospitalist, Lesvia Lino PA-C. Admission and Anticipated Discharge Date Admission Date: July 31, 2024 Subjective Patient was seen earlier this evening as she was out of her room earlier today for surgical procedure. She denies chest pain, shortness of breath, syncope, near syncope. She had no complaints. Physical Exam Physical Exam: Gen.: No acute distress. Alert. HEENT: Anicteric sclera. Neck: Elevated JVD. Cardiac: Regular and bradycardic in the 50s. Normal S1-S2. 1/6 systolic murmur. Pulmonary: Decreased breath sounds bilaterally, but otherwise clear to auscultation bilaterally without wheezes, rales, or rhonchi. Abdomen: Soft, nontender, nondistended, with normoactive bowel sounds. No bruits noted. Extremities: 1+ radial pulses bilaterally. 1-2+ bilateral lower extremity edema to the knees. No cyanosis. Results & Data Vital Signs (Past 12 Hours) Vital Signs Temp Pulse Pulse Resp BP Pulse Ox Pulse Ox 08/05/24 08:55 36.8 C 56 L 20 125/67 91 08/05/24 07:13 36.9 C 52 L 16 133/66 97 08/05/24 03:17 36.5 C 46 L 18 91/58 L 99 08/04/24 23:10 36.8 C 52 L 15 146/84 H 98 08/04/24 23:00 98 O2 Del Method O2 Del Method O2 Flow Rate O2 Flow Rate 08/05/24 08:55 Nasal Cannula 2 08/05/24 07:13 Nasal Cannula 2.0 08/05/24 03:17 Nasal Cannula 3 08/04/24 23:10 Nasal Cannula 3 08/04/24 23:00 Nasal Cannula 2 Intake & Output 08/03/24 08/04/24 08/05/24 08/06/24 06:59 06:59 06:59 06:59 Intake Total 1340 / 1340 1620 / 1620 670 / 670 100 / 100 Output Total 2750 / 2750 1950 / 1950 925 / 925 Balance -1410 / -1410 -330 / -330 -255 / -255 100 / 100 Weight 176 lb 9.444 oz 171 lb 1.259 oz 171 lb 1.259 oz Laboratory Results Laboratory Results - last 24 hr 08/04/24 08/04/24 08/04/24 11:13 16:06 20:06 WBC RBC Hgb Hct MCV MCH MCHC RDW Std Deviation RDW Coeff of Rasheed Plt Count MPV Sodium Potassium Chloride Carbon Dioxide Anion Gap BUN Creatinine Est Cr Clr Drug Dosing eGFR BUN/Creatinine Ratio Glucose POC Glucose 87 80 72 Calcium Magnesium 08/05/24 08/05/24 08/05/24 05:26 07:11 07:12 WBC 9.20 RBC 4.78 Hgb 12.1 Hct 39.9 MCV 83.5 MCH 25.3 MCHC 30.3 L RDW Std Deviation 57.1 H RDW Coeff of Rasheed 19.0 H Plt Count 352 MPV 10.6 Sodium 138 Potassium 3.1 L Chloride 93 L Carbon Dioxide 37 H Anion Gap 8 BUN 9 Creatinine 0.63 Est Cr Clr Drug Dosing 83.6 eGFR 97.17 BUN/Creatinine Ratio 14.3 Glucose 52 L* POC Glucose 57 L* 65 L* Calcium 7.7 L Magnesium 2.1 08/05/24 08/05/24 08/05/24 07:42 09:04 09:54 WBC RBC Hgb Hct MCV MCH MCHC RDW Std Deviation RDW Coeff of Rasheed Plt Count MPV Sodium Potassium Chloride Carbon Dioxide Anion Gap BUN Creatinine Est Cr Clr Drug Dosing eGFR BUN/Creatinine Ratio Glucose POC Glucose 109 H 73 105 H Calcium Magnesium Diagnostic Findings Labs reviewed and notable for hypokalemia, normal renal function, normal blood counts. ECG personally reviewed from 08/04/2024 at 11:47 AM: Probable ectopic atrial bradycardia at 59 bpm. Nonspecific T wave abnormality. Telemetry personally reviewed: Sinus bradycardia in the 40s to 50s. Medications Administered Current Inpatient Medications Acetaminophen (Acetaminophen 325 Mg Tab) 650 mg PO Q4H PRN PRN Reason: Pain or Fever Stop: 08/30/24 23:17 Last Admin: 08/04/24 19:54 Dose: 650 mg Amiodarone HCl (Amiodarone 200 Mg Tab) 100 mg PO [facility] Stop: 09/03/24 11:59 Last Admin: 08/05/24 08:14 Dose: 100 mg Apixaban (Apixaban 5 Mg Tablet) 5 mg PO BID [facility] Stop: 08/31/24 08:59 Last Admin: 08/04/24 10:01 Dose: 5 mg Aspirin (Aspirin 81 Mg Ectab) [facility] Stop: 08/31/24 08:59 Last Admin: 08/05/24 08:14 Dose: 81 mg Atorvastatin Calcium (Atorvastatin 40 Mg Tab) [facility] [place] Stop: 09/01/24 08:59 Last Admin: 08/05/24 08:16 Dose: Not Given Calcium/Vitamin D (Calcium 600mg + Vit D 400 Iu Tab) 1 tab PO BID [facility] Stop: 09/02/24 08:59 Last Admin: 08/05/24 08:16 Dose: Not Given Dextrose (Dextrose 50% 50 Ml Syringe) 25 - 50 ml IV UD PRN; Protocol PRN Reason: Hypoglycemia Protocol Stop: 08/30/24 23:17 Last Admin: 08/05/24 09:26 Dose: 25 ml Docusate Sodium (Docusate Sodium 100 Mg Cap) 100 mg PO BID [facility] Stop: 09/04/24 08:59 Last Admin: 08/05/24 08:16 Dose: Not Given Ferrous Sulfate (Ferrous Sulfate 325 Mg Tab) [facility] [place] Stop: 09/02/24 08:59 Last Admin: 08/05/24 08:23 Dose: Not Given Furosemide (Furosemide 40 Mg/4 Ml Vial) 40 mg IV [id number] [facility] Stop: 08/31/24 16:59 Last Admin: 08/05/24 08:17 Dose: 40 mg Glucagon (Glucagon For Inj 1 Mg Vial) 1 mg SQ UD PRN; Protocol PRN Reason: Hypoglycemia Protocol Stop: 08/30/24 23:17 Glucose (Glucose 40% Gel 15 Gm Tube) 15 - 30 gm PO UD PRN; Protocol PRN Reason: Hypoglycemia Protocol Stop: 08/30/24 23:17 Glucose (Glucose 10 Tab/Tube) 4 - 8 tab PO UD PRN; Protocol PRN Reason: Hypoglycemia Protocol Stop: 08/30/24 23:17 Piperacillin Sod/Tazobactam Sod (Zosyn) 4.5 gm in 100 mls @ 25 mls/hr IV Q8H ELIAN; Protocol Stop: 08/08/24 01:59 Last Infusion: 08/05/24 07:30 Dose: Infused Sodium Chloride (Nss) 500 mls @ 0 mls/hr IV .Q0M [facility] Stop: 09/04/24 09:29 Last Admin: 08/05/24 09:29 Dose: 15 mls/hr Miscellaneous (Carbohydrates For Hypoglycemia ) 15 - 30 gm PO UD PRN PRN Reason: Hypoglycemia Protocol Stop: 08/30/24 23:17 Miscellaneous Information (Nursing To Pharmacy Communication) 1 each N/A TODAY [facility] Stop: 09/04/24 09:29 Last Admin: 08/05/24 09:40 Dose: Not Given Ondansetron HCl (Ondansetron Inj 2 Mg/Ml 2 Ml Vial) 4 mg IV Q4H PRN PRN Reason: Nausea Stop: 08/31/24 18:19 Last Admin: 08/04/24 09:05 Dose: 4 mg Oxycodone HCl (Oxycodone Hcl Ir 5 Mg Tab (Immediate Release)) 10 mg PO Q4H PRN PRN Reason: Pain Stop: 08/15/24 13:56 Last Admin: 08/04/24 19:54 Dose: 10 mg Pantoprazole Sodium (Pantoprazole 40 Mg Tab) 40 mg PO QAM [facility] Stop: 08/31/24 08:59 Last Admin: 08/05/24 08:17 Dose: 40 mg Polyethylene Glycol (Polyethylene (Miralax) 17 Gm Pack) 17 gm PO BID PRN PRN Reason: Constipation Stop: 09/03/24 01:12 Potassium Chloride (Potassium Chloride Crtab 20 Meq Tabcr) 20 meq PO QAM [facility] Stop: 09/01/24 08:59 Last Admin: 08/05/24 08:17 Dose: Not Given Sertraline HCl (Sertraline Hcl 50 Mg Tablet) 50 mg PO DAILY [facility] Stop: 09/01/24 08:59 Last Admin: 08/05/24 08:18 Dose: 50 mg Spironolactone (Spironolactone 25 Mg Tab) 25 mg PO QAM [facility] Stop: 09/03/24 08:59 Last Admin: 08/05/24 08:18 Dose: Not Given Umeclidinium [place] (Umeclidinium [place] 62.5mcg/Blister 7 Puffs/Inhaler) 1 puffs INH DAILY [facility]; Protocol Stop: 09/01/24 08:59 Last Admin: 08/05/24 08:19 Dose: Not Given PG Care Time/CCT Total # of Minutes Spent Total Time Spent with Patient: Total time spent is greater than 50% in coordination of care (as documented) at patient's floor/unit and/or counseling patient: Coding Level of Care Code 73737 SUB INP/OBS CARE 3/50MIN Diagnoses Acute on chronic heart failure with preserved ejection fraction (HFpEF) I50.33 Bradycardia R00.1 CAD (coronary artery disease) I25.10 Paroxysmal atrial fibrillation I48.0 Pulmonary hypertension I27.20 Tricuspid regurgitation I07.1 Anticoagulant long-term use Z79.01 Hypertension I10 Dyslipidemia E78.5
[2024-08-05] MEDS ORDERED: ONDANSETRON INJ 2 MG/ML 2 ML VIAL IV PRN (10:37)
[2024-08-05] MEDS ORDERED: ATROPINE SULFATE 0.1 MG/ML 10ML SYR IV PRN (10:37)
[2024-08-05] MEDS ORDERED: ePHEDrine sulfate 50 MG/ML AMP IV PRN (10:37)
[2024-08-05] MEDS ORDERED: fentaNYL citrate PF 100 MCG/2 ML VIAL IV PRN (10:37)
[2024-08-05] MEDS ORDERED: PROMETHAZINE HCL 6.25 MG in SODIUM CHLORIDE 0.9% 50 ML IV PRN (10:37)
[2024-08-05] MEDS ORDERED: FLUMAZENIL 0.1 MG/1 ML 10 ML VIAL IV PRN (10:37)
[2024-08-05] MEDS ORDERED: NALOXONE HCL 0.4 MG/1 ML VIAL/CARP IV PRN (10:37)
--- NOTE | 2024-08-05 10:37 | Anesthesiology Consultation ---
Date of Service August 05, 2024 Assessment & Plan Chart Review Chart Review: Acceptable Risk for Surgery and Patient NOT seen in Pre Admission Testing Consults Requested none ASA ASA4 Proposed Anesthesia Anesthesia Type: MAC Risk / Benefits Reviewed With: PT / POA / Parent / Guardian, Accepts Plan and Informed Consent Obtained History Surgery Operation Date: 08/05/24 09:25 Proposed Procedures p Bilateral Excisional Debridement Ulcers - Italo Melendrez, DPM Height/Weight Height: 5 ft 2 in Weight: 77.6 kg Allergies Allergy/AdvReac Type Severity Reaction Status Date / Time ciprofloxacin [Cipro] Allergy Mild SHORTNESS Verified 07/31/24 20:15 OF BREATH miconazole Allergy Mild Rash Verified 07/31/24 20:15 empagliflozin Allergy Unknown Unknown Verified 07/31/24 20:15 [From Jardiance] metformin Allergy Unknown Unknown Verified 07/31/24 20:15 Medications Home Medications Medication Instructions Recorded Confirmed Last Taken methimazole 10 mg tablet 10 mg PO QAM 07/20/22 07/31/24 07/31/24 sitagliptin phosphate 100 mg 100 mg PO QDB 07/20/22 07/31/24 07/31/24 tablet (Januvia) metoprolol succinate 25 mg 25 mg PO BID #60 tabs 09/04/22 07/31/24 07/31/24 tablet,extended release 24 hr AM amiodarone 200 mg tablet 200 mg PO QAM 07/31/24 07/31/24 07/31/24 apixaban 5 mg tablet (Eliquis) 5 mg PO QAM 07/31/24 07/31/24 07/31/24 AM aspirin 81 mg tablet,delayed 81 mg PO QAM 07/31/24 07/31/24 07/31/24 release furosemide 40 mg tablet 40 mg PO BID 07/31/24 07/31/24 07/31/24 oxycodone 10 mg tablet 10 mg PO Q4 PRN Pain 07/31/24 07/31/24 Unknown pantoprazole 40 mg tablet,delayed 40 mg PO QAM 07/31/24 07/31/24 07/31/24 release potassium chloride 20 mEq 20 meq PO QAM 07/31/24 07/31/24 Unknown tablet,extended release(part/cryst) (Klor-Con M) sertraline 50 mg tablet (Zoloft) 50 mg PO DAILY PRN USES FOR ANXIETY 07/31/24 07/31/24 Unknown tiotropium bromide 1.25 2 puff inhalation DAILY PRN 07/31/24 07/31/24 Unknown mcg/actuation mist for inhalation Shortness Of Breath (Spiriva Respimat) Active Medications Generic Name Dose Route Start Last Admin Trade Name Freq PRN Reason Stop Dose Admin Acetaminophen 650 mg 07/31/24 23:18 08/04/24 19:54 Acetaminophen 325 Mg Tab PO 08/30/24 23:17 650 mg Q4H PRN Administration Pain or Fever Amiodarone HCl 100 mg 08/04/24 12:00 08/05/24 08:14 Amiodarone 200 Mg Tab PO 09/03/24 11:59 100 mg QAM ELIAN Administration Apixaban 5 mg 08/01/24 09:00 08/04/24 10:01 Apixaban 5 Mg Tablet PO 08/31/24 08:59 5 mg BID ELIAN Administration Aspirin 81 mg 08/01/24 09:00 08/05/24 08:14 Aspirin 81 Mg Ectab PO 08/31/24 08:59 81 mg QAM ELIAN Administration Atorvastatin Calcium 80 mg 08/02/24 09:00 08/05/24 08:16 Atorvastatin 40 Mg Tab PO 09/01/24 08:59 Not Given QAM ELIAN Calcium/Vitamin D 1 tab 08/03/24 09:00 08/05/24 08:16 Calcium 600mg + Vit D 400 Iu Tab PO 09/02/24 08:59 Not Given BID ELIAN Dextrose 25 - 50 ml 07/31/24 23:18 08/05/24 09:26 Dextrose 50% 50 Ml Syringe IV 08/30/24 23:17 25 ml UD PRN Administration Hypoglycemia Protocol Protocol Docusate Sodium 100 mg 08/05/24 09:00 08/05/24 08:16 Docusate Sodium 100 Mg Cap PO 09/04/24 08:59 Not Given BID ELIAN Ferrous Sulfate 325 mg 08/03/24 09:00 08/05/24 08:23 Ferrous Sulfate 325 Mg Tab PO 09/02/24 08:59 Not Given QAM ELIAN Furosemide 40 mg 08/01/24 17:00 08/05/24 08:17 Furosemide 40 Mg/4 Ml Vial IV 08/31/24 16:59 40 mg [id number] ELIAN Administration Piperacillin Sod/Tazobactam Sod 4.5 gm in 100 mls @ 25 mls/hr 08/01/24 02:00 08/05/24 07:30 Zosyn IV 08/08/24 01:59 Infused Q8H ELIAN Infusion Protocol Sodium Chloride 500 mls @ 0 mls/hr 08/05/24 09:30 08/05/24 09:29 Nss IV 09/04/24 09:29 15 mls/hr .Q0M ELIAN Administration KVO Miscellaneous Information 1 each 08/05/24 09:30 08/05/24 09:40 Nursing To Pharmacy Communication N/A 09/04/24 09:29 Not Given TODAY [facility]IAN Ondansetron HCl 4 mg 08/01/24 18:20 08/04/24 09:05 Ondansetron Inj 2 Mg/Ml 2 Ml Vial IV 08/31/24 18:19 4 mg Q4H PRN Administration Nausea Oxycodone HCl 10 mg 08/02/24 11:16 08/04/24 19:54 Oxycodone Hcl Ir 5 Mg Tab (Immediate Release) PO 08/15/24 13:56 10 mg Q4H PRN Administration Pain Pantoprazole Sodium 40 mg 08/01/24 09:00 08/05/24 08:17 Pantoprazole 40 Mg Tab PO 08/31/24 08:59 40 mg QAM ELIAN Administration Potassium Chloride 20 meq 08/02/24 09:00 08/05/24 08:17 Potassium Chloride Crtab 20 Meq Tabcr PO 09/01/24 08:59 Not Given QAM ELIAN Sertraline HCl 50 mg 08/02/24 09:00 08/05/24 08:18 Sertraline Hcl 50 Mg Tablet PO 09/01/24 08:59 50 mg DAILY ELIAN Administration Spironolactone 25 mg 08/04/24 09:00 08/05/24 08:18 Spironolactone 25 Mg Tab PO 09/03/24 08:59 Not Given QAM ELIAN Umeclidinium [place] 1 puffs 08/02/24 09:00 08/05/24 08:19 Umeclidinium [place] 62.5mcg/Blister 7 Puffs/Inhaler INH 09/01/24 08:59 Not Given DAILY [facility]IAN Protocol NPO Date Last Intake of Fluids: 08/04/24 Time Last Intake of Fluids: 19:00 Date Last Intake of Solids: 08/04/24 Time Last Intake of Solids: 12:00 Past Medical History CHF CAD s/p NSTEMI severe pulm. HTN ASCVD Ao NIDDM HTN HLD PVD Diabetic PN Hx/o A Fib COPD/emphysema Exercise / Class Metabolic Activity III < 4 Walking/Shop/Light housework Past Surgical History Surgical History No pertinent past surgical history Past Anesthesia History No Hx of Anesthesia Complications and No Family Hx of Anesthesia Complications History of PONV No Hx of PONV and No Hx of Motion Sickness Social History Smoking Status: Former smoker Smoking End Date: tamia >10 years ago Hx Alcohol Use: No Hx Substance Use: No substance use type: does not use Physical Exam Vital Signs Last Vital Signs Temp 36.8 C 08/05/24 08:55 Pulse 56 L 08/05/24 08:55 Resp 20 08/05/24 08:55 BP 125/67 08/05/24 08:55 Pulse Ox 91 08/05/24 08:55 O2 Del Method Nasal Cannula 08/05/24 08:55 O2 Flow Rate 2 08/05/24 08:55 Constitutional + obese; no acute distress ENMT Mouth: + dentition abnormality, + dentures and + edentulous Thyromental Distance: < 3.5 Finger Breadths Mallampati Class: II Neck normal visual inspection and trachea midline; neck extension not limited Respiratory normal respiratory effort; no respiratory distress Auscultation: + diminished lung sounds Cardiovascular Rate/Rhythm: regular rate and regular rhythm Heart Sounds: + murmur Vessels: no carotid bruit Musculoskeletal Spine: normal cervical ROM and no pain with cervical ROM Extremities: + extremities abnormal to inspection and full ROM of extremities Neurologic moves all extremities Motor/Sensory: + sensory deficit Psychiatric Orientation: alert and oriented x 3 Testing Laboratory Results 08/05/24 05:26 08/05/24 05:26 PT 13.5 Seconds (9.0-12.0) H 07/31/24 17:15 INR 1.3 (0.9-1.1) H 07/31/24 17:15 Hemoglobin A1c 5.7 % (4.5-5.6) H 08/01/24 05:52 Urine Color Dark Yellow 07/31/24 17:20 Urine Appearance Cloudy (Clear) A 07/31/24 17:20 Urine pH 5.5 (4.5-7.5) 07/31/24 17:20 Ur Specific [place] 1.024 (1.000-1.030) 07/31/24 17:20 Urine Protein 1+ (Negative) H 07/31/24 17:20 Urine Glucose (UA) Negative (Negative) 07/31/24 17:20 Urine Ketones Trace (Negative) H 07/31/24 17:20 Urine Nitrite Negative (Negative) 07/31/24 17:20 Ur Leukocyte Esterase Negative (Negative) 07/31/24 17:20 Urine WBC (Auto) 0-5 /hpf (0-5) 07/31/24 17:20 Urine RBC (Auto) 3-5 /hpf (0-2) H 07/31/24 17:20 U Hyaline Cast (Auto) 6-10 /lpf (0-2) H 07/31/24 17:20 U Epithel Cells (Auto) 3-5 /hpf (0-2) H 07/31/24 17:20 Urine Bacteria (Auto) None Seen (None Seen) 07/31/24 17:20 07/31/24 17:56 Gram Stain - Final Ankle Aerobic and Anaerobic Culture - Preliminary Kerstersia gyiorum Pseudomonas aeruginosa Alcaligenes faecalis 07/31/24 18:48 Aerobic Blood Culture - Preliminary Blood No growth in Aerobic bottle after 48 hours. Anaerobic Blood Culture - Preliminary No growth in Anaerobic bottle after 48 hours. 07/31/24 17:15 Aerobic Blood Culture - Preliminary Blood No growth in Aerobic bottle after 48 hours. Anaerobic Blood Culture - Preliminary No growth in Anaerobic bottle after 48 hours. 08/05/24 08/05/24 08/05/24 09:54 09:04 07:42 POC Glucose 105 H 73 109 H 08/05/24 08/05/24 07:12 07:11 POC Glucose 65 L* 57 L* Electrocardiogram Date: 08/04/24 Findings: + pertinent finding (unusual P axis @ 59;possible atrial bradycardia;ST & T wave abnl) Chest X-Ray Date: 07/31/24 Findings: + cardiomegaly and + pulmonary vascular congestion Echocardiogram Date: 08/01/24 EF: 60% Other Findings: + atrial enlargement (mild biatrial dilation) and + LVH (moderate) Valvular Disease: + MR (mild) TR-severe severe pulm HTN-[id number] TORR RV mildly dilated,decreased FXN
[2024-08-05] MEDS ORDERED: MIDAZOLAM HCL 1 MG/ML 2ML VIAL ONE (10:52)
[2024-08-05] MEDS ORDERED: PROPOFOL IV EMULSION 10 MG/ML 20 ML VIAL IV ONE (10:53)
[2024-08-05] MEDS: LIDOCAINE 2% LOCAL 50 ML VIAL ONE (11:34)
[2024-08-05] MEDS: BUPIVACAINE 0.5 % 5 MG/1 ML MPF 30ML VIAL ONE (11:35)
--- NOTE | 2024-08-05 11:36 | Post Operative Brief Note ---
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: 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: Right foot osteomyelitis I identified the patient and participated in the time-out.: Yes Procedure Operation Date: 08/05/24 09:25 Actual Procedures p Bilateral Excisional Debridement Ulcers(Bilateral) - Italo Melendrez DPM Right foot bone biopsy Surgeon Italo Melendrez DPM Manager Php None Estimated Blood Loss 100 Findings Consistent with Post-Op Diagnosis Specimens Bone/Talus culture Right Bone/Talus pathology Right Drains Gould Catheter Anesthesia Type MAC Complications none Disposition Accompanied Patient To Recovery: Yes Disposition: Recovery Room
[2024-08-05] MEDS ORDERED: fentaNYL citrate PF 100 MCG/2 ML VIAL ONE (11:48)
--- NOTE | 2024-08-05 12:49 | Anesthesiology Progress Note ---
Date of Service August 05, 2024 Anesthesia Post Procedure Vital Signs Vital Signs: Temp Pulse Pulse Pulse Resp BP Pulse Ox 08/05/24 12:30 48 L 15 113/61 94 08/05/24 12:20 48 L 14 127/55 L 97 08/05/24 12:10 48 L 16 120/70 97 08/05/24 12:00 49 L 17 144/74 H 94 08/05/24 11:53 36.0 C L 62 19 105/61 93 08/05/24 08:55 36.8 C 56 L 20 125/67 91 08/05/24 08:00 08/05/24 07:13 36.9 C 52 L 16 133/66 97 08/05/24 03:17 36.5 C 46 L 18 91/58 L 99 08/04/24 23:10 36.8 C 52 L 15 146/84 H 98 08/04/24 23:00 08/04/24 21:52 50 L 08/04/24 20:00 08/04/24 19:17 36.9 C 56 L 16 110/60 99 08/04/24 16:55 50 L 115/66 08/04/24 16:14 57 L 08/04/24 15:04 36.8 C 50 L 21 108/55 L 97 08/04/24 14:02 60 115/61 Pulse Ox O2 Del Method O2 Del Method O2 Flow Rate O2 Flow Rate 08/05/24 12:30 Oxymask 2 08/05/24 12:20 Oxymask 4 08/05/24 12:10 Oxymask 6 08/05/24 12:00 Oxymask 8 08/05/24 11:53 Oxymask 8 08/05/24 08:55 Nasal Cannula 2 08/05/24 08:00 Nasal Cannula 2 08/05/24 07:13 Nasal Cannula 2.0 08/05/24 03:17 Nasal Cannula 3 08/04/24 23:10 Nasal Cannula 3 08/04/24 23:00 98 Nasal Cannula 2 08/04/24 21:52 08/04/24 20:00 Nasal Cannula 2 08/04/24 19:17 Nasal Cannula 3 08/04/24 16:55 08/04/24 16:14 08/04/24 15:04 Nasal Cannula 2 08/04/24 14:02 Pain Intensity Right Lower Ankle: Pain Intensity: 7 Right Heel: Pain Intensity: 3 Back: Pain Intensity: 6 Transfer of Care Handoff Completed per policy Notes Mental Status: alert / awake / arousable Patient Amnestic to Procedure: Yes Nausea / Vomiting: adequately controlled Pain: adequately controlled Airway Patency, RR, SpO2: stable & adequate BP & HR: stable & adequate Hydration State: stable & adequate Anesthetic Complications: no major complications apparent
--- NOTE | 2024-08-05 13:25 | Hospitalist Progress Note ---
Date of Service August 05, 2024 Assessment & Plan (1) Diabetic foot infection: Plan: Chronic venous stasis and ulcerations bilateral lower extremities showing necrosis and tendon exposure on dorsal right foot Osteomyelitis right foot seen with debridement 08/05 - recent A1c 08/01/2024 5.7% - afebrile, VSS, no leukocytosis - no signs of systemic infection at this time - no drainage noted from the wounds - pain management with Tylenol and Home oxycodone dose as needed - Wound cultures showed pseudomonas aeruginosa - susceptible to Zosyn; along with Kerstersia gyiorum and Alcaligenes faecalis - Zosyn should provided coverage, ID consulted - sensitives/final result to follow - surgical cultures pending; Talus bone culture pending - Both blood cultures showed no growth to date - Vancomycin discontinued 08/03 - Wound care consulted; see images 08/03 - podiatry reached out to wound care to reassess for possible wound vac - Podiatry following - surgical debridement 08/05 showed osteomyelitis - ID consulted - will prolonged IV abx with osteomyelitis PAD with CAD - component of PAD as distal pulses not able to be palpitated - lipid panel showing total cholesterol and LDL WNL, HDL low () - continue daily baby aspirin, high intensity statin started 08/02 - arterial Doppler confirming peripheral vascular disease - consulted Dr. Tolbert for vascular management; planning for bilateral LE angiogram Monday 08/06 (2) Acute on chronic heart failure with preserved ejection fraction (HFpEF): Plan: Improving Appears to be due to acute on chronic heart failure with preserved ejection fraction; noncompliant on home diuretic With anasarca and CXR with pulm edema - Last echocardiogram 08/01/24 showed EF 60 to 65%, no motion wall abnormalities, right ventricle mildly dilated, severe pulmonary hypertension, worsening tricuspid regurg - BNP 1480 on admission - Heart healthy, low sodium diet - Strict I&O monitoring - Daily weights - cardiology following - referral to CHF clinic made Hypokalemia - resumed home potassium 08/02 - 3 gm magnesium given 08/03 - spironolactone increased from 25mg to 50 mg 08/06 due to continued hypokalemia - with patient refusal to taking PO potassium and additional potassium doses, giving 40 Meq IV potassium 08/05 - With over 3000 mL output loss, 6kg weight loss, and continued hypokalemia decreased Lasix from twice daily to once daily 08/05 - Daily BMP (3) Acute hypoxemic respiratory failure: Plan: Improving, Due to underlying CHF - Oxygen per nasal cannula to maintain saturation greater than 90% - patient not on oxygen at home - patient denies dyspnea, cough, dizziness/lightheadedness - Wean off O2 as tolerated; currently on 2 L nasal cannula (4) Persistent atrial fibrillation: Plan: Paroxysmal atrial fibrillation on Eliquis Chronic history of tachybradycardia syndrome - seen by cardiology outpatient previously; does not follow with them closely discussed potential for A-fib ablation in the past - Cardiology following - will need outpatient follow-up with electrophysiology to discuss A-fib ablation versus pacemaker for tachybradycardia syndrome - not a candidate for pacemaker at this time given wounds - sinus bradycardia on admission -> converted to a fib with RVR (HR up to 180) 08/04 -> back into sinus bradycardia 0937 08/04 - thyroid panel showing hypothyroidism; possibly secondary to amiodarone use vs overmedication with methimazole - Continue Eliquis - discontinued metoprolol on admission - discussed with cardiology, restarted patient on 100 mg amiodarone 08/04 (200 mg at home - lowered dose due to bradycardia) - monitor thyroid function and transaminase levels while on amiodarone (repeat labs 08/15) (5) Nausea & vomiting: Plan: Present on admission, continued - CT of abd/pelv on admission showed no acute concerns - Zofran IV as needed Constipation: - Colace and miralax prn - Bisacodyl suppository 08/04 with bowel movement - discontinue iron supplement 08/05 as could be contributing to symptoms (6) Diabetes mellitus type 2 in obese: Plan: history of type 2 diabetes with diabetic foot ulcers - Diabetic diet - Hold home Januvia - A1c 5.7 - NovoLog discontinued 08/03 as patient needing minimal insulin and hypoglycemic at times - glucose stable (7) Hyperthyroidism: Plan: - She takes methimazole and amiodarone chronically - Thyroid function on admission showing hypothyroidism; TSH 9.3, T3 1.83 - continue to hold methimazole and amiodarone - follow TSH in 2 weeks (repeat 08/15) (8) Hypertension: Plan: Stable Hypotensive on admission, resolved - continue to hold metoprolol; will likely discontinue - Will continue with IV Lasix (9) Sacral decubitus ulcer, stage II: Plan: - wound care consulted *Pressure ulcers of right and left buttock, stage 3 (10) Anemia: Plan: appears to be chronic - Hypochromic microcytic anemia - Iron panel and ferritin level confirm iron deficiency anemia - iron supplement started 08/03 but with constipation and nausea, discontinued 08/05 (11) Hypocalcemia: Plan: - calcium consistently low, vit d low at 13 - supplement with Ca + vit D started 08/03 Plan Chronic stable diagnoses: Depression continue sertraline VTE ppx: Eliquis Diet: heart healthy, low-sodium, diabetes diet Code status: full Dispo: PCU/telemetry; wound debridement 08/05 with podiatry and angiogram 08/06 with vascular; with osteomyelitis found on debridement, wound care nurse to reevaluate for possible wound VAC and patient will need 2 months of IV antibiotics, ID consulted Can remove Gould catheter 08/06 after angiogram. Admission and Anticipated Discharge Date Admission Date: July 31, 2024 Supervising Physician Co-Signing Physician Notes Physician School Patrol Supervision note: I have not personally seen and examined the patient, but discussed and verified the sharma points of the history and physical along with the plan with ROXANNE Lino with the following exceptions and/or additions: None Subjective Patient seen at bedside postoperatively with her friend present. She is feeling well, continues with foot pain. She denies nausea, dizziness, or abdominal pain. Discussed need for IV potassium given her oral refusal. Discussed treatment plan, questions and concerns answered. Tele: Sinus Bradycardia, Hr 40s-50s. Review of Systems Review of Systems: See HPI Physical Exam Physical Exam: The patient is awake, alert and oriented 3, well developed and well nourished, normocephalic and atraumatic, in no acute distress. Non-toxic appearing. HEENT- EOMI, mucous membranes moist. Hearing grossly intact. Heart-normal S1 and S2. No murmurs, rubs or gallops. Lungs-clear bilaterally, no respiratory distress, no accessory muscle use. 2L O2 via nasal cannula. Abdomen-normal bowel sounds and soft. No ascites noted. Non-tender. Extremities- no clubbing, cyanosis. Bilateral feet with surgical dressings. Rheumatologic- decreased range of motion due to pain. Psychiatric- normal affect. Results & Data Results & Data Vital Signs (Past 12 Hours) Vital Signs Temp Pulse Pulse Resp BP Pulse Ox O2 Del Method 08/05/24 13:08 36.6 C 55 L 16 127/64 100 Nasal Cannula 08/05/24 12:40 48 L 14 109/67 93 Oxymask 08/05/24 12:30 48 L 15 113/61 94 Oxymask 08/05/24 12:20 48 L 14 127/55 L 97 Oxymask 08/05/24 12:10 48 L 16 120/70 97 Oxymask 08/05/24 12:00 49 L 17 144/74 H 94 Oxymask 08/05/24 11:53 36.0 C L 62 19 105/61 93 Oxymask 08/05/24 08:55 36.8 C 56 L 20 125/67 91 Nasal Cannula 08/05/24 08:00 Nasal Cannula 08/05/24 07:13 36.9 C 52 L 16 133/66 97 Nasal Cannula 08/05/24 03:17 36.5 C 46 L 18 91/58 L 99 Nasal Cannula O2 Flow Rate 08/05/24 13:08 2.0 08/05/24 12:40 2 08/05/24 12:30 2 08/05/24 12:20 4 08/05/24 12:10 6 08/05/24 12:00 8 08/05/24 11:53 8 08/05/24 08:55 2 08/05/24 08:00 2 08/05/24 07:13 2.0 08/05/24 03:17 3 Laboratory Results reviewed CBC, Mg, and BMP PG Care Time/CCT Total # of Minutes Spent Total Time Spent with Patient: Total time spent is greater than 50% in coordination of care (as documented) at patient's floor/unit and/or counseling patient: Coding [place] [address] SUB INP/OBS CARE 3/50MIN Patient Type Established Medical Decision Making High Complexity Diagnoses Diabetic foot infection E11.628; L08.9 Acute on chronic heart failure with preserved ejection fraction (HFpEF) I50.33 Acute hypoxemic respiratory failure J96.01 Persistent atrial fibrillation I48.19 Nausea & vomiting R11.2 Diabetes mellitus type 2 in obese E11.69; E66.9 Hyperthyroidism E05.90 Hypertension I10 Sacral decubitus ulcer, stage II L89.152 Anemia D64.9 Hypocalcemia E83.51
[2024-08-05] MEDS: POTASSIUM CHLORIDE / WTR 10 MEQ/100 ML PLCT IV SCH (13:36)
--- NOTE | 2024-08-05 14:01 | Operative Report ---
Post Operative Report Pre & Post Diagnosis Operation Date: 08/05/24 09:25 Pre-Op Diagnosis: 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: 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: Post-Op Diagnosis: 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: 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: Right foot osteomylitis I identified the patient and participated in the time-out.: Yes Procedure Operation Date: 08/05/24 09:25 Actual Procedures p Bilateral Excisional Debridement Ulcers, Right foot bone biopsy(Bilateral) - Italo Melendrez DPM Surgeon Italo Melendrez DPM Import Export Agent None Estimated Blood Loss 100 Findings Consistent with Post-Op Diagnosis Extensive damage was noted to the right lower extremity ulcerations. The anterior ankle ulceration extended directly to the anterior tibial tendon with deep probing noted to the deep fascia. The dorsal foot ulcer immediately extended to the talus and dorsal midfoot bones. Interior Design Assistant samples of bone were obtained from the talus to be sent for further testing, including culture and sensitivity and pathology. Further, the plantar calcaneal ulceration extended to the level of the posterior and plantar calcaneus. The lateral wound extended to the fifth metatarsal styloid process. The wound beds were fibrotic and bone but were largely able to be converted to granular tissue with sharp debridement. The left foot ulcerations were much more shallow/superficial with the dorsal foot ulceration only extending to the level of the subcutaneous tissue and the plantar calcaneal ulceration extending to the subcutaneous tissue as well. The right lower extremity will have a difficult time healing any of these ulcerations and her prognosis for limb salvage is poor at this point. Specimens Interior Design Assistant samples of bone were obtained from the talus for culture and sensitivity as well as pathology testing. Anesthesia Type MAC Disposition Accompanied Patient To Recovery: Yes Disposition: Recovery Room Indications This patient is a recent hospital patient consult of ours who presented with worsening bilateral lower extremity ulcerations. She had been in wound care in [facility] for many months but has not seen improvement. Instead, she noted increasing drainage and cellulitis to the lower extremity and was admitted to the hospital for treatment of these wounds. She admitted increasing weakness and signs and symptoms of systemic infection. She has since had vascular testing suggesting adequate arterial inflow for limb salvage. She would like to attempt as much treatment as possible to save both lower extremities. Preoperative instructions, postop instructions, relative risks, and outcomes were all discussed at length. Consent was obtained for these bilateral lower extremity incision and drainage/excisional debridements. Description of Procedure The patient was brought to the operating room placed on the operating table in the supine position. Following ministration of IV sedation, local analgesia was obtained utilizing 20 cc of half percent Marcaine plain and bilateral ankle blo cks. This was a total of 40 cc of half percent Marcaine. The bilateral lower extremities were then scrubbed prepped and draped in the usual aseptic manner. No tourniquet was utilized during the duration of this case given the patient's suspected peripheral arterial disease. Attention was directed to the right foot where multiple ulcerations were immediately noted. The anterior ankle wound was sharply debrided to the tibialis anterior tendon which was debrided of nonviable tissue as well as the remainder of the wound base. The dorsal foot ulceration was sharply debrided to the level of the talus and navicular, as well as the cuboid and second and third cuneiforms. These bones were immediately identified underneath the ulcer. The suspected fibrous slough overlying the wound was necrotic nonviable extensor digitorum brevis tendon material. All of this was excised as it would not likely heal given any amount of time. The plantar lateral fifth metatarsal ulceration was sharply debrided to the level of the styloid process, with care taken to resect any non-viable avascular tissue. Further, the plantar calcaneal ulceration was deroofed and the deep tissue injury extended to the level of the calcaneus. The underlying wound bed, once debrided, was 100% granular. Attention was then directed to the left foot where 2 separate ulcerations were identified. The dorsal foot ulceration extended only to the level of the subcutaneous tissue it was sharply debrided utilizing a 15 blade and curette. No underlying probing or purulence was appreciated. The plantar heel ulceration was similar, measuring 2 x 2 cm and extending only to the level of the subcutaneous tissue after debridement of the overlying eschar. After debridement of all of these ulcerations, the ulcers were flushed with copious months of sterile saline. The anterior ankle ulceration of the right foot was loosely reapproximated utilizing 2-0 nylon to attempt to hold back the tibialis anterior tendon slightly. The right foot ulcerations will likely benefit most from a wound VAC in the next couple of days. Otherwise, the ulcers were dressed with Xeroform gauze, 4 x 4 gauze, Kerlix, and ABD, and Christiano bandage. The patient tolerated the procedure well and was transferred to the recovery room with vital signs stable and vascular status intact to the feet. Following postoperative monitoring patient will be given prescriptions and transferred back to the floor for further monitoring. I think wound care consulted already been placed for evaluation of the next few days. Further, with the new onset of clinical diagnosis of osteomyelitis, she would benefit from an infectious disease consult to further attempt limb salvage. I attest to the content of the Intraoperative Record and any orders documented therein. Any exceptions are noted below.
--- NOTE | 2024-08-05 15:07 | Infectious Disease Consult ---
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 On admission, she was afebrile, requiring up to 6L NC (now weaned down). Initial labs with WBC wnl, Cr 0.86. LFTs unremarkable. UA with 0-5 WBC. CTAP with anasarca and moderate to large ascites, which may reflect volume overload with a right pleural effusion. Right ankle XR with soft tissue swelling, no e/o bony abnormality. CXR with CM and pulmonary edema. Chest CTA neg for PE, +emphysema with possible airspace opacifications in RUL, may represent PNA with reactive LNs, small right pleural effusion with underlying atelectasis. LE arterial duplex with PVD. TTE with mild MR, moderate-severe TR, severe pulmonary HTN, technically difficult. She was admitted with bl lower extremity cellulitis, bradycardia, anasarca, and acute on chronic CHF. She was seen by vascular surgery and podiatry. S/p OR 08/05 and underwent bl excisional debridement of ulcers, right foot bone biopsy (per op note, extensive damage noted of RLE ulcerations, anterior ankle ulcer with deep probing noted to deep fascia, dorsal foot ulcer immediately extended to talus and dorsal midfoot bones bone bx taken of talus; plantar calcaneal ulceration extended to level of posterior and plantar calcaneus, lateral wound extended to fifth MT styloid process; left foot ulcerations more shallow extending to subcu tissue). She has been getting vancomycin and zosyn. ID consulted 08/05. Images of wounds reviewed in chart. She is s/p debridement and bone biopsies have been sent, will wait for cx and path to determine final regimen. She has wound cultures which are from 07/31 and likely superficial cultures, and therefore not often helpful. No MRSA coverage needed since this did not grow. Given c/f probe to bone, I do think she will require a longer course of abx. Given significant PVD, this will likely be with IV abx. # C/f osteomyelitis of R foot (extension of ulcers to bone) # Bilateral LE cellulitis with ulcers # WCX with Pseudomonas # Peripheral vascular disease # Acute CHF # h/o T2DM - f/u OR cultures and pathology - continue zosyn - will need a prolonged course of abx given c/f osteomyelitis in OR - final regimen pending culture results (likely to be IV given significant PVD) ID will continue to follow. If questions or concerns, contact via Sp[employer] or Infectious Disease Call Center . Luiza Davalos MD [facility], Division of Infectious Diseases [employer]: [phone] Consultation Information This patient recommendation is based on a telemedicine consult request which was completed asynchronously through chart review and information provided by the primary physician. The patient was not seen or examined today. The evaluation is consultative in nature and all patient care and treatment decisions can either be accepted or rejected by the patient's primary hospital-based treating physician using their own independent medical judgment for their patient. Transportation Department Supervisor contact information: Please call [facility] Connect Call Center . (Phone Number For Physician Use Only) Time Spent Reviewing Chart: 31+ minutes History of Present Illness Reason for Consultation: osteomyelitis right foot, bilateral foots wounds Attending Physician: Crystal De Souza MD History of Present Illness 69yo F with h/o diabetic foot infection, bl lower extremity cellulitis, T2DM, CAD, afib, chronic respiratory failure, hyperparathyroidism, sacral decubitus ulcers, recently seen at [facility] 07/26 with bl lower leg wounds c/f cellulitis (CTA showed moderate-severe arterial insufficiency bl, planned to start IV abx but patient left AMA) who presented on 07/31 with abdominal pain and vomiting. EMS was called and found her in a recliner covered in urine and feces. Reportedly she hadnt gotten out of the recliner for 24hrs due to weakness. On admission, she was afebrile, requiring up to 6L NC (now weaned down). Initial labs with WBC wnl, Cr 0.86. LFTs unremarkable. UA with 0-5 WBC. CTAP with anasarca and moderate to large ascites, which may reflect volume overload with a right pleural effusion. Right ankle XR with soft tissue swelling, no e/o bony abnormality. CXR with CM and pulmonary edema. Chest CTA neg for PE, +emphysema with possible airspace opacifications in RUL, may represe nt PNA with reactive LNs, small right pleural effusion with underlying atelectasis. LE arterial duplex with PVD. TTE with mild MR, moderate-severe TR, severe pulmonary HTN, technically difficult. She was admitted with bl lower extremity cellulitis, bradycardia, anasarca, and acute on chronic CHF. She was seen by vascular surgery and podiatry. S/p OR 08/05 and underwent bl excisional debridement of ulcers, right foot bone biopsy (per op note, extensive damage noted of RLE ulcerations, anterior ankle ulcer with deep probing noted to deep fascia, dorsal foot ulcer immediately extended to talus and dorsal midfoot bones bone bx taken of talus; plantar calcaneal ulceration extended to level of posterior and plantar calcaneus, lateral wound extended to fifth MT styloid process; left foot ulcerations more shallow extending to subcu tissue). She has been getting vancomycin and zosyn. ID consulted 08/05. No telepresenter at this time. Allergies Allergy/AdvReac Type Severity Reaction Status Date / Time ciprofloxacin [Cipro] Allergy Mild SHORTNESS Verified 07/31/24 20:15 OF BREATH miconazole Allergy Mild Rash Verified 07/31/24 20:15 empagliflozin Allergy Unknown Unknown Verified 07/31/24 20:15 [From Jardiance] metformin Allergy Unknown Unknown Verified 07/31/24 20:15 Home Medications Medication Instructions Recorded Confirmed Type methimazole 10 mg tablet 10 mg PO QAM 07/20/22 07/31/24 History sitagliptin phosphate 100 mg 100 mg PO QDB 07/20/22 07/31/24 History tablet (Januvia) metoprolol succinate 25 mg 25 mg PO BID #60 tabs 09/04/22 07/31/24 Rx tablet,extended release 24 hr amiodarone 200 mg tablet 200 mg PO QAM 07/31/24 07/31/24 History apixaban 5 mg tablet (Eliquis) 5 mg PO QAM 07/31/24 07/31/24 History aspirin 81 mg tablet,delayed 81 mg PO QAM 07/31/24 07/31/24 History release furosemide 40 mg tablet 40 mg PO BID 07/31/24 07/31/24 History oxycodone 10 mg tablet 10 mg PO Q4 PRN Pain 07/31/24 07/31/24 History pantoprazole 40 mg tablet,delayed 40 mg PO QAM 07/31/24 07/31/24 History release potassium chloride 20 mEq 20 meq PO QAM 07/31/24 07/31/24 History tablet,extended release(part/cryst) (Klor-Con M) sertraline 50 mg tablet (Zoloft) 50 mg PO DAILY PRN USES FOR ANXIETY 07/31/24 07/31/24 History tiotropium bromide 1.25 2 puff inhalation DAILY PRN 07/31/24 07/31/24 History mcg/actuation mist for inhalation Shortness Of Breath (Spiriva Respimat) Patient History Surgical History No pertinent past surgical history Social History Smoking Status: Former smoker Tobacco Type: Cigarettes Smoking End Date: tamia >10 years ago; Second Hand Exposure: No; Tobacco Cessation Education Requested by Patient: No Hx Alcohol Use: No Hx Substance Use: No Preferred Language: Malaysian Communication Ability: Effective Bag Tester Required: No Beliefs That Will Affect Care: None marital status: Single Current Living Situation: Significant Other Current Living Situation Comment: Lives at home with Cody Other Information That Helps Us Care for You: No Feels Safe at Home: Yes Safety Concerns: Feels Safe At This Time Assistive Devices: Mechanical Lift Results & Data Vital Signs (Past 12 Hours) Vital Signs Temp Pulse Pulse Resp BP Pulse Ox O2 Del Method 08/05/24 14:49 36.4 C L 48 L 16 117/56 L 97 Nasal Cannula 08/05/24 13:08 36.6 C 55 L 16 127/64 100 Nasal Cannula 08/05/24 12:40 48 L 14 109/67 93 Oxymask 08/05/24 12:30 48 L 15 113/61 94 Oxymask 08/05/24 12:20 48 L 14 127/55 L 97 Oxymask 08/05/24 12:10 48 L 16 120/70 97 Oxymask 08/05/24 12:00 49 L 17 144/74 H 94 Oxymask 08/05/24 11:53 36.0 C L 62 19 105/61 93 Oxymask 08/05/24 08:55 36.8 C 56 L 20 125/67 91 Nasal Cannula 08/05/24 08:00 Nasal Cannula 08/05/24 07:13 36.9 C 52 L 16 133/66 97 Nasal Cannula 08/05/24 03:17 36.5 C 46 L 18 91/58 L 99 Nasal Cannula O2 Flow Rate 08/05/24 14:49 2.0 08/05/24 13:08 2.0 08/05/24 12:40 2 08/05/24 12:30 2 08/05/24 12:20 4 08/05/24 12:10 6 08/05/24 12:00 8 08/05/24 11:53 8 08/05/24 08:55 2 08/05/24 08:00 2 08/05/24 07:13 2.0 08/05/24 03:17 3 Laboratory Results Labs reviewed. Diagnostic Findings Imaging reviewed.
[2024-08-05] MEDS: FUROSEMIDE 40 MG/4 ML VIAL IV ONE (17:26)
--- NOTE | 2024-08-06 06:04 | Electrocardiogram Report ---
Test Reason : Blood Pressure : */* mmHG Vent. Rate : 47 BPM Atrial Rate : 47 BPM P-R Int : 156 ms QRS Dur : 94 ms QT Int : 488 ms P-R-T Axes : 54 103 47 degrees QTcB Int : 432 ms Sinus bradycardia Rightward axis Low voltage QRS Nonspecific ST and T wave abnormality Abnormal ECG When compared with ECG of 31-Jul-2024 20:41, Criteria for Anterior infarct are no longer Present Confirmed by Reid Hernandez ([id number]) on 08/06/2024 6:03:52 AM Referred By: REFERRED SELF Confirmed By: Reid Hernandez
--- NOTE | 2024-08-06 06:05 | Electrocardiogram Report ---
Test Reason : Blood Pressure : */* mmHG Vent. Rate : 116 BPM Atrial Rate : 115 BPM P-R Int : * ms QRS Dur : 96 ms QT Int : 266 ms P-R-T Axes : * 128 266 degrees QTcB Int : 369 ms Atrial fibrillation with rapid ventricular response Right axis deviation Low voltage QRS Nonspecific ST and T wave abnormality Abnormal ECG When compared with ECG of 03-Aug-2024 05:54, Atrial fibrillation has replaced Sinus rhythm Vent. rate has increased by 69 bpm Confirmed by Reid Hernandez ([id number]) on 08/06/2024 6:04:51 AM Referred By: REFERRED SELF Confirmed By: Reid Hernandez
--- NOTE | 2024-08-06 06:06 | Electrocardiogram Report ---
Test Reason : Blood Pressure : */* mmHG Vent. Rate : 59 BPM Atrial Rate : 59 BPM P-R Int : 166 ms QRS Dur : 96 ms QT Int : 416 ms P-R-T Axes : 258 118 -59 degrees QTcB Int : 411 ms Unusual P axis, possible ectopic atrial bradycardia Right axis deviation Abnormal ECG When compared with ECG of 03-Aug-2024 23:11, Ectopic atrial rhythm has replaced Atrial fibrillation Vent. rate has decreased by 57 bpm Confirmed by Reid Hernandez ([id number]) on 08/06/2024 6:05:33 AM Referred By: REFERRED SELF Confirmed By: Reid Hernandez
[2024-08-06 06:15] LABS: Hematocrit (blood only) 39.7 % (37.0-47.0); Mean Corpuscular Hemoglobin 25.6 pg (25.0-34.0); Mean Corpuscular Hgb Conc 30.2 g/dL (32.0-36.0); Mean Corpuscular Volume 84.8 fL (80.0-100.0); Platelet Count 349 K/uL (130-400); RDW Coefficient of Variation 20.2 % (11.5-14.5); RDW Standard Deviation 61.3 fL (36.4-46.3); Red Blood Count 4.68 M/uL (4.20-5.40); White Blood Count 11.47 K/ul (4.8-10.8)
[2024-08-06 06:32] LABS: BUN Creatinine Ratio 14.1 (10-20); Calcium 7.6 mg/dl (8.6-10.3); Creatinine Clr Calc Pharmacy 82.9 ml/min; Potassium 3.4 mmol/L (3.5-5.1)
[2024-08-06] MEDS: POTASSIUM CHLORIDE / WTR 10 MEQ/100 ML PLCT IV SCH (07:08)
[2024-08-06] MEDS: FUROSEMIDE 40 MG/4 ML VIAL IV SCH ×2 (08:04→20:00)
[2024-08-06] MEDS: SPIRONOLACTONE 25 MG TAB PO SCH (08:06)
[2024-08-06] MEDS: POTASSIUM CHLORIDE CRTAB 20 MEQ TABCR PO SCH (08:10)
--- NOTE | 2024-08-06 08:47 | Hospitalist Progress Note ---
Date of Service August 06, 2024 Assessment & Plan (1) Diabetic foot infection: Plan: Chronic venous stasis and ulcerations bilateral lower extremities showing necrosis and tendon exposure on dorsal right foot Osteomyelitis right foot seen with debridement 08/05 - recent A1c 08/01/2024 5.7% - afebrile, VSS, no leukocytosis - no signs of systemic infection at this time - no drainage noted from the wounds - pain management with Tylenol and Home oxycodone dose as needed - Wound cultures showed pseudomonas aeruginosa - susceptible to Zosyn; along with Kerstersia gyiorum and Alcaligenes faecalis - Zosyn should provide coverage, ID consulted - sensitives/final result to follow - surgical cultures pending; Talus bone culture pending - Both blood cultures showed no growth to date - Continue Zosyn, Vancomycin discontinued 08/03 - Wound care consulted; see images 08/03 - wound vac to right foot wound 08/06 - Podiatry following - surgical debridement 08/05 showed possible osteomyelitis - ID consulted - will need prolonged IV abx with osteomyelitis PAD with CAD - component of PAD as distal pulses not able to be palpitated - lipid panel showing total cholesterol and LDL WNL, HDL low () - continue daily baby aspirin, high intensity statin started 08/02 - arterial Doppler confirming peripheral vascular disease - consulted Dr. Tolbert for vascular management; bilateral LE angiogram 08/06 with R external iliac stent and right SFA ballooning (2) Acute on chronic heart failure with preserved ejection fraction (HFpEF): Plan: Improving Appears to be due to acute on chronic heart failure with preserved ejection fraction; noncompliant on home diuretic With anasarca, ascites, and pulm edema - Last echocardiogram 08/01/24 showed EF 60 to 65%, no motion wall abnormalities, right ventricle mildly dilated, severe pulmonary hypertension, worsening tricuspid regurg - BNP 1480 on admission - Heart healthy, low sodium diet - Strict I&O monitoring - Daily weights - cardiology following - referral to CHF clinic made Hypokalemia - resumed home potassium 08/02 - potassium repletion throughout hospital stay; patient with resistance to taking PO K+ - 3 gm magnesium given 08/03 - spironolactone increased from 25mg to 50 mg 08/06 due to continued hypokalemia - increased potassium from 20 MeQ to 40 MeQ daily 08/06 - Increase Lasix back to BID 08/07 given continued fluid retention, spoke with orthopaedic surgeon - Daily BMP (3) Acute hypoxemic respiratory failure: Plan: Improving, Due to underlying CHF - Oxygen per nasal cannula to maintain saturation greater than 90% - patient not on oxygen at home - patient denies dyspnea, cough, dizziness/lightheadedness - Wean off O2 as tolerated; currently on 2 L nasal cannula (4) Persistent atrial fibrillation: Plan: Paroxysmal atrial fibrillation on Eliquis Chronic history of tachybradycardia syndrome - seen by cardiology outpatient previously; does not follow with them closely discussed potential for A-fib ablation in the past - Cardiology following - will need outpatient follow-up with electrophysiology to discuss A-fib ablation versus pacemaker for tachybradycardia syndrome - not a candidate for pacemaker at this time given wounds - sinus bradycardia on admission -> converted to a fib with RVR (HR up to 180) 08/04 -> back into sinus bradycardia 0937 08/04 - thyroid panel showing hypothyroidism; possibly secondary to amiodarone use vs overmedication with methimazole - Continue Eliquis - discontinued metoprolol on admission - discussed with cardiology, restarted patient on 100 mg amiodarone 08/04 (200 mg at home - lowered dose due to bradycardia) - monitor thyroid function and transaminase levels while on amiodarone (repeat labs 08/15) (5) Nausea & vomiting: Plan: Present on admission, continued - CT of abd/pelv on admission showed no acute concerns - Zofran IV as needed Constipation; resolved - Colace prn; miralax discontinued - Bisacodyl suppository 08/04 with bowel movement - discontinue iron supplement 08/05 as could have been contributing to symptoms (6) Diabetes mellitus type 2 in obese: Plan: history of type 2 diabetes with diabetic foot ulcers - Diabetic diet - Hold home Januvia - A1c 5.7 - NovoLog discontinued 08/03 as patient needing minimal insulin and hypoglycemic at times - glucose stable (7) Hyperthyroidism: Plan: - She takes methimazole and amiodarone chronically - Thyroid function on admission showing hypothyroidism; TSH 9.3, T3 1.83 - continue to hold methimazole - resumed amiodarone at lower dose 08/04 - follow TSH in 2 weeks (repeat 08/15) (8) Hypertension: Plan: Stable Hypotensive on admission, resolved - continue to hold metoprolol; will likely discontinue - Will continue with IV Lasix (9) Sacral decubitus ulcer, stage II: Plan: - wound care consulted *Pressure ulcers of right and left buttock, stage 3 (10) Anemia: Plan: appears to be chronic - Hypochromic microcytic anemia - Iron panel and ferritin level confirm iron deficiency anemia - iron supplement started 08/03 but with constipation and nausea, discontinued 08/05 -could give IV Venofer at some point (11) Hypocalcemia: Plan: - calcium consistently low, vit d low at 13 - supplement with Ca + vit D started 08/03 Plan Chronic stable diagnoses: Depression continue sertraline VTE ppx: Eliquis Diet: heart healthy, low-sodium, diabetes diet Code status: full Dispo: PCU/telemetry; wound debridement 08/05 with podiatry and angiogram 08/06 with vascular; with osteomyelitis found on debridement, patient will need terminal computer operator IV antibiotics, ID consulted Remove Gould catheter 08/06 after angiogram. Admission and Anticipated Discharge Date Admission Date: July 31, 2024 Supervising Physician Co-Signing Physician Notes Physician Rotogravure Press Operator Supervision note: I have not personally seen and examined the patient, but discussed and verified the sharma points of the history and physical along with the plan with ROXANNE Lino with the following exceptions and/or additions: None Subjective Patient seen at bedside postoperatively, feeling nauseous and vomiting on exam. Nurse had just administered IV Zofran. Patient stated she was having a lot of pain, felt she could not take oral pain medication given vomiting, IV morphine one-time dose given. Patient's daughter at bedside. Patient revisited due to ongoing pain difficulty sitting still postoperatively. She just received pain medication and was sleeping upon exam. She stated she was comfortable and had no concerns at this time. Patient's boyfriend at the bedside. Spoke with rib builder, Dr. Melendrez, who stated he explained to the patient about possible below the knee amputation of right lower extremity. Patient is going to think about it. Spoke with orthopaedic surgeon, going back to Lasix twice daily given patient is still with fluid retention. Tele: Sinus bradycardia, HR 40s-50s. Review of Systems Review of Systems: See HPI Physical Exam Physical Exam: The patient is alert and oriented 3, well developed and well nourished, normocephalic and atraumatic, in no acute distress. Non-toxic appearing. HEENT- EOMI, mucous membranes moist. Hearing grossly intact. Heart-normal S1 and S2. No murmurs, rubs or gallops. Lungs-decreased bilaterally, no respiratory distress, no accessory muscle use. 2L O2 via nasal cannula. Abdomen-normal bowel sounds and soft. No ascites noted. Non-tender. Vomiting on exam. Extremities- no clubbing, cyanosis. +1 lower extremity edema. Bilateral feet with surgical dressings. Rheumatologic- decreased range of motion due to pain. Psychiatric- normal affect. Results & Data Results & Data Vital Signs (Past 12 Hours) Vital Signs Temp Pulse Pulse Resp BP Pulse Ox Pulse Ox 08/06/24 08:25 36.7 C 52 L 15 131/67 97 08/06/24 07:00 08/06/24 02:48 36.8 C 42 L 14 95/50 L 98 08/06/24 02:26 53 L 08/05/24 23:10 36.8 C 52 L 23 103/57 L 99 08/05/24 23:00 98 O2 Del Method O2 Del Method O2 Flow Rate O2 Flow Rate 08/06/24 08:25 Nasal Cannula 2 08/06/24 07:00 Nasal Cannula 2 08/06/24 02:48 Nasal Cannula 2 08/06/24 02:26 08/05/24 23:10 Nasal Cannula 2 08/05/24 23:00 Nasal Cannula 2 Laboratory Results Reviewed CBC and BMP PG Care Time/CCT Total # of Minutes Spent Total Time Spent with Patient: Total time spent is greater than 50% in coordination of care (as documented) at patient's floor/unit and/or counseling patient: Coding Level of Care Code 97663 SUB INP/OBS CARE 3/50MIN Diagnoses Diabetic foot infection E11.628; L08.9 Acute on chronic heart failure with preserved ejection fraction (HFpEF) I50.33 Acute hypoxemic respiratory failure J96.01 Persistent atrial fibrillation I48.19 Nausea & vomiting R11.2 Diabetes mellitus type 2 in obese E11.69; E66.9 Hyperthyroidism E05.90 Hypertension I10 Sacral decubitus ulcer, stage II L89.152 Anemia D64.9 Hypocalcemia E83.51
[2024-08-06] MEDS ORDERED: DOCUSATE SODIUM 100 MG CAP PO PRN (09:18)
[2024-08-06] MEDS: fentaNYL citrate PF 100 MCG/2 ML VIAL ONE ×3 (11:34→11:39)
[2024-08-06] MEDS: HEPARIN (PORCINE) 1000 UNIT/ML 10 ML (CATH LAB USE ONLY) ONE (11:34)
[2024-08-06] MEDS: LIDOCAINE 1% LOCAL 20 ML VIAL ONE (11:34)
[2024-08-06] MEDS: niCARdipine HCL INJ 2.5 MG/ML 10 ML AMP ONE (11:35)
[2024-08-06] MEDS: MIDAZOLAM HCL 1 MG/ML 2ML VIAL ONE ×5 (11:35→11:40)
[2024-08-06] MEDS: OPTIRAY 350 ONE (11:35)
[2024-08-06] MEDS: NITROGLYCERIN/D5W 100MCG/ML 20ML SYR ONE (11:37)
[2024-08-06] MEDS: LIDOCAINE 1%/EPINEPHRINE 1:100,000 50 ML VIAL ONE (11:40)
[2024-08-06] MEDS: CLOPIDOGREL BISULFATE 300 MG TAB ONE (11:40)
--- NOTE | 2024-08-06 11:45 | Pre Anesthesia Assessment ---
Date of Service August 06, 2024 Pre Sedation Assessment Vital Signs Temp Pulse Pulse Resp BP Pulse Ox Pulse Ox 08/06/24 08:25 98.1 F 52 L 15 131/67 97 08/06/24 07:00 08/06/24 02:48 98.2 F 42 L 14 95/50 L 98 08/06/24 02:26 53 L 08/05/24 23:10 98.2 F 52 L 23 103/57 L 99 08/05/24 23:00 98 08/05/24 20:00 08/05/24 19:26 97.9 F 46 L 13 109/54 L 98 08/05/24 14:49 97.5 F L 48 L 16 117/56 L 97 08/05/24 13:08 97.9 F 55 L 16 127/64 100 08/05/24 12:40 48 L 14 109/67 93 08/05/24 12:30 48 L 15 113/61 94 08/05/24 12:20 48 L 14 127/55 L 97 08/05/24 12:10 48 L 16 120/70 97 08/05/24 12:00 49 L 17 144/74 H 94 08/05/24 11:53 96.8 F L 62 19 105/61 93 O2 Del Method O2 Del Method O2 Flow Rate O2 Flow Rate 08/06/24 08:25 Nasal Cannula 2 08/06/24 07:00 Nasal Cannula 2 08/06/24 02:48 Nasal Cannula 2 08/06/24 02:26 08/05/24 23:10 Nasal Cannula 2 08/05/24 23:00 Nasal Cannula 2 08/05/24 20:00 Nasal Cannula 2 08/05/24 19:26 Nasal Cannula 2 08/05/24 14:49 Nasal Cannula 2.0 08/05/24 13:08 Nasal Cannula 2.0 08/05/24 12:40 Oxymask 2 08/05/24 12:30 Oxymask 2 08/05/24 12:20 Oxymask 4 08/05/24 12:10 Oxymask 6 08/05/24 12:00 Oxymask 8 08/05/24 11:53 Oxymask 8 Cardiovascular + regular rate Respiratory + respiratory effort normal Pre-Sedation Airway Assessment Smoking Status: Former smoker Hx Sleep Apnea: No Hx Difficult Intubation: No Short, Thick Neck: No Thyromental Distance: < 3.5 Finger Breadths Mallampati Class: II ASA: ASA3 Procedure Planning Contraindications for Sedation: none Current Medications Reviewed: Yes Notes The planned sedation has been discussed with the patient. Informed Consent was obtained. I have identified the patient, determined the appropriateness of sedation and have assessed the patient immediately prior to the procedure. All medicine(s) and interventions are by my order.
--- NOTE | 2024-08-06 11:45 | Post Anesthesia Assessment ---
Date of Service August 06, 2024 Post Sedation Assessment Vital Signs Temp Pulse Pulse Resp BP Pulse Ox Pulse Ox 08/06/24 08:25 98.1 F 52 L 15 131/67 97 08/06/24 07:00 08/06/24 02:48 98.2 F 42 L 14 95/50 L 98 08/06/24 02:26 53 L 08/05/24 23:10 98.2 F 52 L 23 103/57 L 99 08/05/24 23:00 98 08/05/24 20:00 08/05/24 19:26 97.9 F 46 L 13 109/54 L 98 08/05/24 14:49 97.5 F L 48 L 16 117/56 L 97 08/05/24 13:08 97.9 F 55 L 16 127/64 100 08/05/24 12:40 48 L 14 109/67 93 08/05/24 12:30 48 L 15 113/61 94 08/05/24 12:20 48 L 14 127/55 L 97 08/05/24 12:10 48 L 16 120/70 97 08/05/24 12:00 49 L 17 144/74 H 94 08/05/24 11:53 96.8 F L 62 19 105/61 93 O2 Del Method O2 Del Method O2 Flow Rate O2 Flow Rate 08/06/24 08:25 Nasal Cannula 2 08/06/24 07:00 Nasal Cannula 2 08/06/24 02:48 Nasal Cannula 2 08/06/24 02:26 08/05/24 23:10 Nasal Cannula 2 08/05/24 23:00 Nasal Cannula 2 08/05/24 20:00 Nasal Cannula 2 08/05/24 19:26 Nasal Cannula 2 08/05/24 14:49 Nasal Cannula 2.0 08/05/24 13:08 Nasal Cannula 2.0 08/05/24 12:40 Oxymask 2 08/05/24 12:30 Oxymask 2 08/05/24 12:20 Oxymask 4 08/05/24 12:10 Oxymask 6 08/05/24 12:00 Oxymask 8 08/05/24 11:53 Oxymask 8 Recovery Score Activity: Moves 4 extremities Respiration: Deep Breath/Cough Circulation: +/-20% PreAnes Value Consciousness: Fully Awake Oxygen Saturation: O2 needed for >90% Post Anesthesia Score: 9 Discharge Sedation Level of Care: Fast Track Phase II Post Sedation Plan On clinical assessment, the patient appears to have tolerated the sedation without complications. Patient is recovering as anticipated. Patient will continue to be monitored by nursing and may be discharged when sedation discharge criteria are met per below protocol. Upon Completions of procedure up to 15 minutes continue every 5 minute vital signs and the P.A.R. score; then discharge to a Phase I or Fast Track to Phase II per the following guidelines: * Discharge Patient to appropriate Phase II area if PAR is 8 or greater or return to pre- procedure baseline. The post - procedure orders will be as directed. * If PAR score is less than 8 or not return to pre-procedure baseline then patient will follow Phase I monitoring till PAR is reached for Phase II. The Phase I may be done in procedure room or may call to secure a Phase I area. * If naloxone or flumazenil are used for reversal, hold in Phase I for continued monitoring from when last reversal dose was given for a minimum of 60 minutes or longer pending the nurse and/or physician discretion of patient condition before discharge to Phase II. Please call the Sedation Physician to re-evaluate and complete post-note for discharge to Phase II area. Do NOT discharge from procedure sedation or Phase 1 until post- sedation evaluation note is complete by procedure /sedation MD Sedation Discharge Instructions to be given to the patient at discharge to home.
--- NOTE | 2024-08-06 11:49 | Post Operative Brief Note ---
PG Immediate Post Op with CF Date of Surgery August 06, 2024 Pre & Post Diagnosis Peripheral arterial disease I identified the patient and participated in the time-out.: Yes Procedure Operation Date: 08/06/24 08:30 Actual Procedures p Angio Extremity Bilateral - Jean-Claude Tolbert MD Surgeon Jean-Claude Tolbert MD Knockdown Worker Roxi Mandel Estimated Blood Loss 20 Findings See Below 98% right common iliac artery stenosis 70% right mid SFA Three-vessel runoff below the knee 90% diffuse left SFA disease Three-vessel runoff below the knee 1. Successful angioplasty with intravascular lithotripsy and stenting of right external iliac artery 2. Successful angioplasty of right mid SFA with drug-eluting balloon TR band to right radial artery access Mechanical closure of left CUSTOM STOCK MAKER access with [employer] Specimens Specimen Description: Anesthesia Type RN Sedation Complications none Disposition Accompanied Patient To Recovery: Yes Disposition: PCU Overlapping Procedure I was present for: the critical portions of procedure.
[2024-08-06] MEDS: MoRPHine SULFATE 2 MG/ML CARP IV STA ×2 (13:03→18:45)
--- NOTE | 2024-08-06 14:41 | Infectious Disease Progress Nt ---
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 On admission, she was afebrile, requiring up to 6L NC (now weaned down). Initial labs with WBC wnl, Cr 0.86. LFTs unremarkable. UA with 0-5 WBC. CTAP with anasarca and moderate to large ascites, which may reflect volume overload with a right pleural effusion. Right ankle XR with soft tissue swelling, no e/o bony abnormality. CXR with CM and pulmonary edema. Chest CTA neg for PE, +emphysema with possible airspace opacifications in RUL, may represent PNA with reactive LNs, small right pleural effusion with underlying atelectasis. LE arterial duplex with PVD. TTE with mild MR, moderate-severe TR, severe pulmonary HTN, technically difficult. She was admitted with bl lower extremity cellulitis, bradycardia, anasarca, and acute on chronic CHF. She was seen by vascular surgery and podiatry. S/p OR 08/05 and underwent bl excisional debridement of ulcers, right foot bone biopsy (per op note, extensive damage noted of RLE ulcerations, anterior ankle ulcer with deep probing noted to deep fascia, dorsal foot ulcer immediately extended to talus and dorsal midfoot bones bone bx taken of talus; plantar calcaneal ulceration extended to level of posterior and plantar calcaneus, lateral wound extended to fifth MT styloid process; left foot ulcerations more shallow extending to subcu tissue). She has been getting vancomycin and zosyn. ID consulted 08/05. S/p bl lower extremity angioplasty 08/06 (per op note, had lithotripsy and stenting of right external iliac artery, LISBETH of right mid SFA). Since PVD has been addressed, PO options for abx can be considered. Given probe to bone, OM is a concern. Awaiting bone biopsy and cultures to direct therapy. She has wound cultures which are from 07/31 and likely superficial cultures, and therefore not often helpful. No MRSA coverage needed since this did not grow. # C/f osteomyelitis of R foot (extension of ulcers to bone) # Bilateral LE cellulitis with ulcers s/p debridement 08/05 # WCX with Pseudomonas # Peripheral vascular disease s/p angioplasty # Acute CHF # h/o T2DM - f/u OR cultures and pathology - continue zosyn - final regimen pending culture results - likely will need prolonged abx given c/f OM ID will continue to follow. If questions or concerns over the weekend, contact Infectious Disease Call Center . Luiza Davalos MD [facility], Division of Infectious Diseases [facility]: [phone] Admission and Anticipated Discharge Date Admission Date: July 31, 2024 Subjective Subsequent visit was provided via telemedicine using two-way real-time interactive telecommunication between the patient and the telemedicine provider. For the duration of the visit, the provider was performing the assessment from a different facility than the patient. This includesuse of bluetooth stethoscope forauscultationperformed by the telepresenter that the telemedicine provider can hear if described in the physical exam. Banking Representative contact information: Please call [facility] Call Center . (Phone Number For Physician Use Only) After establishing a telemedicine visit, patient was: Patient was verified with two unique identifiers, Patient/authorized rep acknowledged consent and understanding and Gave permission to continue telehealth session Time Spent with Patient: Subsequent => 35 min Patient has difficulty answering questions as she is immediately postop. C/o pain everywhere. Physical Exam Physical Exam: General: Awake, no acute distress HEENT: NC/AT, EOMI, mmm Neck: supple Lungs: respirations non-labored Abdomen: soft, some tenderness Ext: postop dressing in place Results & Data Vital Signs (Past 12 Hours) Vital Signs Temp Pulse Pulse Resp BP Pulse Ox O2 Del Method 08/06/24 08:25 36.7 C 52 L 15 131/67 97 Nasal Cannula 08/06/24 07:00 Nasal Cannula 08/06/24 05:30 49 L 08/06/24 02:48 36.8 C 42 L 14 95/50 L 98 Nasal Cannula O2 Flow Rate 08/06/24 08:25 2 08/06/24 07:00 2 08/06/24 05:30 08/06/24 02:48 2 Laboratory Results Labs reviewed.
--- NOTE | 2024-08-06 17:01 | Endovascular Procedure Note ---
PG Endovascular Procedure Rpt Pre & Post Diagnosis Peripheral arterial disease I identified the patient and participated in the time-out.: Yes Procedure Operation Date: 08/06/24 08:30 Actual Procedures p Angio Extremity Bilateral - Jean-Claude Tolbert MD Surgeon Jean-Claude Tolbert MD Transport Driver Roxi Mandel Estimated Blood Loss 20 Findings See Below Abdominal aorta--calcified, mild distal disease above bifurcation (20 to 30%) Right lower extremity-- -Common iliac calcified, 20 to 30% mid (no pullback gradient) -External iliac heavily calcified with severe diffuse disease up to 99% in distal portion. -Internal iliacpatent -CFA50% proximal Profunda widely patent -SFA calcified, 70% mid/distal disease -Poplitealwidely patent -ATAwidely patent to the foot -PTAwidely patent into the foot -Peronealwidely patent to the ankle -DPA tapers in the forefoot, medial/lateral plantar arteries widely patent with partial pedal arch Left lower extremity-- -Common iliac calcified, 20% proximal -External iliacwidely patent -Internal iliacwidely patent -DEVELOPMENTAL BEHAVIORAL PHYSICIAN, profunda widely patent -SFA calcified, diffuse disease up to 80% in the midsegment -Poplitealwidely patent -BINDU widely patent -PRESCHOOL PROGRAM DIRECTOR widely patent -Peroneal widely patent Anesthesia Type RN Sedation Radiation Exposure (mGv) Radiation (mGy): 3,019 Contrast Contrast: 175 Complications none Disposition Accompanied Patient To Recovery: Yes Disposition: Assistant Casino Shift Manager Holding Description of Procedure Right radial artery access obtained under ultrasound guidance with placement of short 5 Fr sheath Over a J-wire a pigtail catheter navigated into abdominal aorta and aortogram performed Selective lower extremity angiography via MPA catheter placed into external iliac arteries Left DEVELOPMENTAL BEHAVIORAL PHYSICIAN access obtained under ultrasound guidance with micropuncture, short 5Fr sheath placed Up and over with HK catheter. [place] advantage wire navigated across external iliac artery stenosis 6 Fr 45 cm destination sheath placed from left DEVELOPMENTAL BEHAVIORAL PHYSICIAN to right EIA.. Angioplasty of mid to distal SFA with 4.0 balloon Angioplasty of external iliac artery with 4.0 balloon Distal lower extremity angiography via balloon catheter placed and SFA. [place] advantage wire exchanged for 0.14 command wire External iliac dilated with intravascular lithotripsy (6.0 balloon, 270 pulses) External iliac artery stented with 6.0 x 120 mm self-expanding stent (Lifestream ) extending from proximal DEVELOPMENTAL BEHAVIORAL PHYSICIAN to proximal ANKIT. 0.14 wire exchanged for 0.18 Gladius Mongo wire. Angioplasty of EIA stent with 6.0 balloon Mid to distal SFA treated with 5.0 x 100 mm Lutonix drug-eluting balloon External iliac stent further postdilated with a 7.0 balloon Post procedure good angiographic result. SFA well-expanded with no evidence of dissection. EIA stent well-expanded with no residual stenosis. Brisk distal 3 vessel run-off. Contrast used: 175 Moderate sedation: [id number] Access closure: TR band, StarClose Summary: 1. Right lower extremity --severe diffuse external iliac up to 99%, 70% mid/distal SFA. Widely patent three-vessel distal runoff to the foot. 2. Left lower extremity --diffuse SFA disease up to 80%. Widely patent three- vessel distal runoff. 3. Successful right external iliac artery intravascular lithotripsy and stenting (6.0 x 120 self-expanding stent from distal ANKIT to proximal DEVELOPMENTAL BEHAVIORAL PHYSICIAN). 4. Successful angioplasty of right mid/distal SFA with drug-eluting balloon (5.0 x 100 Lutonix). Recommendations: Continue DAPT with ASA/Clopidogrel for 1 months Follow-up non-invasive vascular testing in 2 weeks. I attest to the content of the Intraoperative Record and any orders documented therein. Any exceptions are noted below. Vascular Charges Angiography/Venography Procedure 1: Angiography/Venography charges: [id number] Initial 3rd order or selective abd, pelvic, or LE branch Procedure 2: Angiography/Venography charges: [id number] Aortography, abd + b/l iliofem LE, catheter, radiological S&I Lower Extremity Interventions Procedure 1: Lower Extremity Intervention charges: [id number] Stent placement(s), iliac artery, unilateral, initial vessel; Procedure 2: Lower Extremity Intervention charges: [id number] Angioplasty, femoral, popliteal artery(s), unilateral Additional Services Procedure 1: Additional Services Charges: 70844 Ultrasound guidance - vascular access Procedure 2: Additional Services Charges: 34823 Ultrasound guidance - vascular access Procedure 3: Additional Services Charges: 54220 Moderate sedation initial 15 min Procedure 4: Additional Services Charges: 53765 Moderate sedation, each additional 15 min
--- NOTE | 2024-08-06 17:42 | Cardiology Progress Note ---
Date of Service August 06, 2024 Assessment & Plan (1) Acute on chronic heart failure with preserved ejection fraction (HFpEF): (2) Bradycardia: (3) CAD (coronary artery disease): (4) Paroxysmal atrial fibrillation: (5) Pulmonary hypertension: (6) Tricuspid regurgitation: (7) Anticoagulant long-term use: (8) Hypertension: (9) Dyslipidemia: Plan ASSESSMENT/PLAN: 1. Acute on chronic heart failure with preserved EF: Volume status has improved with diuresis. She remains hypervolemic. Try to attain 1 to 2 L net negative fluid balance daily. I's and O's are incomplete today. Recommend increasing diuretic to twice daily dosing tomorrow. If not achieving goal, could increase Lasix to 80 mg. Monitor renal function. Strict I's and O's. Daily weights. Low-sodium diet, less than 2000 mg daily. Adverse reaction reported for SGLT2 inhibitor. Unfortunately, medication noncompliance seems to have played a significant role here as she was not taking her diuretic at home as prescribed. Continue spironolactone, which should help with hypokalemia and she has been refusing oral potassium supplementation. 2. Bradycardia: While in sinus, has been mostly in the 40s overnight up to 50s during the day. Tachybradycardia syndrome as she is typically tachycardic while in A-fib. Not a great candidate for pacemaker currently with her open lower extremity wounds. Discussed with the EP. Can revisit possible pacemaker in the future when her overall infection risk improves. 3. CAD: Medical therapy was recommended for mostly nonobstructive CAD. High intensity statin therapy. Discontinued beta-love as above. 4. Paroxysmal atrial fibrillation: Has been seen by EP at [facility] [place] [facility] [place] discussed potential for A-fib ablation. Has been in sinus bradycardia despite holding of amiodarone and metoprolol. A-fib with RVR began overnight on 08/03/2024 after beta-love and amiodarone held for days. Amiodarone resumed following episode of A-fib, but at lower dose given bradycardia. Continue amiodarone 100 mg daily. Has been in sinus with very brief episode of A-fib overnight (nonsustained). Tachybradycardia syndrome, but not optimal candidate for pacemaker with her being high risk for bacteremia with her open wounds. As tolerated bradycardia well thus far and has been asymptomatic. Continue amiodarone for now. Case has been reviewed with electrophysiology. Monitor TSH and transaminase levels while on amiodarone. As an outpatient, can determine best long-term treatment option for her. Recommend follow-up with electrophysiology. Continue anticoagulation for stroke risk reduction. 5. Anticoagulation: She has not been taking Eliquis as prescribed, choosing to take it only once daily while at home. Discussed the importance of taking it twice daily whenever she is discharged. Continue Eliquis 5 mg twice daily. Monitor CBC and renal function. 6. Tricuspid regurgitation: May improve with diuresis as above. Continue to monitor. 7. Pulmonary hypertension: Likely related to her hypervolemic state. Diurese as above. 8. Dyslipidemia: High intensity statin therapy as discussed. 9. Hypotension: Has a history of hypertension but has been mildly hypotensive here at times. Blood pressure actually hypertensive today. Diurese as above. 10. Lower extremity wounds/osteomyelitis: Has undergone bilateral excisional debridement ulcers and bone biopsy. Followed by podiatry and infectious disease. 11. PAD: Dr. Tolbert is seen from a vascular perspective and performed bilateral lower extremity intervention on 08/06/2024. 12. Disposition: When discharged, follow-up with Dr. Farr, her primary cardiol ogist. She wishes to follow-up in the [place] office. Dr. Riley will be covering starting this evening. Plan of care communicated with Dr. Riley and primary hospitalist, Lesvia Lino PA-C. Admission and Anticipated Discharge Date Admission Date: July 31, 2024 Subjective Patient seen this afternoon. She had just received morphine by nursing staff. She was somnolent but able to deny chest pain or shortness of breath. She had no particular complaints. She underwent lower extremity angiography with Dr. Tolbert earlier today. Her significant other was present at the bedside. Physical Exam Physical Exam: Gen.: No acute distress. Somnolent. Arousable to verbal stimuli. HEENT: Anicteric sclera. Neck: Elevated JVD. Cardiac: Regular. Bradycardic in the 50s. Normal S1-S2. 1/6 systolic murmur. Pulmonary: Decreased breath sounds bilaterally, but otherwise clear to auscultation bilaterally without wheezes, rales, or rhonchi. Abdomen: Soft, nontender, nondistended, with normoactive bowel sounds. No bruits noted. Extremities: 1+ radial pulses bilaterally. 1+ bilateral lower extremity edema. No cyanosis. Results & Data Vital Signs (Past 12 Hours) Vital Signs Temp Pulse Pulse Resp BP BP Pulse Ox 08/06/24 16:05 36.4 C L 59 L 19 152/80 H 91 08/06/24 14:54 52 L 08/06/24 12:15 163/63 H 08/06/24 12:00 172/99 H 08/06/24 08:25 36.7 C 52 L 15 131/67 97 08/06/24 07:00 O2 Del Method O2 Flow Rate 08/06/24 16:05 Nasal Cannula 2 08/06/24 14:54 08/06/24 12:15 08/06/24 12:00 08/06/24 08:25 Nasal Cannula 2 08/06/24 07:00 Nasal Cannula 2 Intake & Output 08/04/24 08/05/24 08/06/24 08/07/24 06:59 06:59 06:59 06:59 Intake Total 1620 / 1620 670 / 670 1157.333 / 7265.897 3707 / 1050 Output Total 1950 / 1950 925 / 925 1029 / 1029 Balance -330 / -330 -255 / -255 128.333 / 933.301 6543 / 1050 Weight 171 lb 1.259 oz 171 lb 1.259 oz 173 lb 8.061 oz 173 lb 8.061 oz Laboratory Results Laboratory Results - last 24 hr 08/05/24 08/06/24 08/06/24 20:03 06:01 06:24 WBC 11.47 H RBC 4.68 Hgb 12.0 Hct 39.7 MCV 84.8 MCH 25.6 MCHC 30.2 L RDW Std Deviation 61.3 H RDW Coeff of Rasheed 20.2 H Plt Count 349 MPV 10.0 Activ Coag Time Kaolin Sodium 137 Potassium 3.4 L Chloride 95 L Carbon Dioxide 37 H Anion Gap 5 BUN 9 Creatinine 0.64 Est Cr Clr Drug Dosing 82.9 eGFR 96.80 BUN/Creatinine Ratio 14.1 Glucose 87 POC Glucose 122 H 105 H Calcium 7.6 L 08/06/24 08/06/24 08/06/24 10:23 10:31 10:40 WBC RBC Hgb Hct MCV MCH MCHC RDW Std Deviation RDW Coeff of Rasheed Plt Count MPV Activ Coag Time Kaolin 397 H 397 H 372 H Sodium Potassium Chloride Carbon Dioxide Anion Gap BUN Creatinine Est Cr Clr Drug Dosing eGFR BUN/Creatinine Ratio Glucose POC Glucose Calcium 08/06/24 08/06/24 12:58 16:27 WBC RBC Hgb Hct MCV MCH MCHC RDW Std Deviation RDW Coeff of Rasheed Plt Count MPV Activ Coag Time Kaolin Sodium Potassium Chloride Carbon Dioxide Anion Gap BUN Creatinine Est Cr Clr Drug Dosing eGFR BUN/Creatinine Ratio Glucose POC Glucose 76 100 H Calcium Diagnostic Findings Telemetry personally reviewed: Sinus bradycardia in the 40s to 50s. Had nonsust ained A-fib overnight. No sustained arrhythmia since yesterday. Labs reviewed and notable for mild leukocytosis, normal hemoglobin, stable renal function, mild hypokalemia. Bilateral lower extremity angiography (08/06/24) report reviewed: Summary: 1. Right lower extremity --severe diffuse external iliac up to 99%, 70% mid/distal SFA. Widely patent three-vessel distal runoff to the foot. 2. Left lower extremity --diffuse SFA disease up to 80%. Widely patent three- vessel distal runoff. 3. Successful right external iliac artery intravascular lithotripsy and stenting (6.0 x 120 self-expanding stent from distal ANKIT to proximal BAREBACK RIDER). 4. Successful angioplasty of right mid/distal SFA with drug-eluting balloon (5.0 x 100 Lutonix). Medications Administered Current Inpatient Medications Acetaminophen (Acetaminophen 325 Mg Tab) 650 mg PO Q4H PRN PRN Reason: Pain or Fever Stop: 08/30/24 23:17 Last Admin: 08/06/24 04:26 Dose: 650 mg Amiodarone HCl (Amiodarone 200 Mg Tab) 100 mg PO QAM [facility] Stop: 09/03/24 11:59 Last Admin: 08/06/24 08:03 Dose: 100 mg Apixaban (Apixaban 5 Mg Tablet) 5 mg PO BID [facility] Stop: 08/31/24 08:59 Last Admin: 08/04/24 10:01 Dose: 5 mg Aspirin (Aspirin 81 Mg Ectab) 81 mg PO QAM [facility] Stop: 08/31/24 08:59 Last Admin: 08/06/24 08:03 Dose: 81 mg Atorvastatin Calcium (Atorvastatin 40 Mg Tab) 80 mg PO QAM [facility] Stop: 09/01/24 08:59 Last Admin: 08/06/24 08:03 Dose: 80 mg Calcium/Vitamin D (Calcium 600mg + Vit D 400 Iu Tab) 1 tab PO BID [facility] Stop: 09/02/24 08:59 Last Admin: 08/06/24 08:03 Dose: 1 tab Clopidogrel Bisulfate (Clopidogrel Bisulfate 75 Mg Tab) 75 mg PO QAM [facility] Stop: 09/06/24 08:59 Dextrose (Dextrose 50% 50 Ml Syringe) 25 - 50 ml IV UD PRN; Protocol PRN Reason: Hypoglycemia Protocol Stop: 08/30/24 23:17 Last Admin: 08/05/24 09:26 Dose: 25 ml Docusate Sodium (Docusate Sodium 100 Mg Cap) 100 mg PO BID PRN PRN Reason: Constipation Stop: 09/04/24 08:59 Furosemide (Furosemide 40 Mg/4 Ml Vial) 40 mg IV DAILY [facility] Stop: 09/05/24 08:59 Last Admin: 08/06/24 08:04 Dose: 40 mg Glucagon (Glucagon For Inj 1 Mg Vial) 1 mg SQ UD PRN; Protocol PRN Reason: Hypoglycemia Protocol Stop: 08/30/24 23:17 Glucose (Glucose 40% Gel 15 Gm Tube) 15 - 30 gm PO UD PRN; Protocol PRN Reason: Hypoglycemia Protocol Stop: 08/30/24 23:17 Glucose (Glucose 10 Tab/Tube) 4 - 8 tab PO UD PRN; Protocol PRN Reason: Hypoglycemia Protocol Stop: 08/30/24 23:17 Piperacillin Sod/Tazobactam Sod (Zosyn) 4.5 gm in 100 mls @ 25 mls/hr IV Q8H [facility]; Protocol Stop: 08/08/24 01:59 Last Infusion: 08/06/24 16:56 Dose: Infused Sodium Chloride (Nss) 500 mls @ 0 mls/hr IV .Q0M [facility] Stop: 09/04/24 09:29 Last Infusion: 08/05/24 21:45 Dose: 0 mls/hr Miscellaneous (Carbohydrates For Hypoglycemia ) 15 - 30 gm PO UD PRN PRN Reason: Hypoglycemia Protocol Stop: 08/30/24 23:17 Ondansetron HCl (Ondansetron Inj 2 Mg/Ml 2 Ml Vial) 4 mg IV Q4H PRN PRN Reason: Nausea Stop: 08/31/24 18:19 Last Admin: 08/06/24 12:30 Dose: 4 mg Oxycodone HCl (Oxycodone Hcl Ir 5 Mg Tab (Immediate Release)) 10 mg PO Q4H PRN PRN Reason: Pain Stop: 08/15/24 13:56 Last Admin: 08/06/24 15:13 Dose: 10 mg Pantoprazole Sodium (Pantoprazole 40 Mg Tab) 40 mg PO QAM [facility] Stop: 08/31/24 08:59 Last Admin: 08/06/24 08:03 Dose: 40 mg Potassium Chloride (Potassium Chloride Crtab 20 Meq Tabcr) 40 meq PO QAM [facility] Stop: 09/05/24 08:59 Last Admin: 08/06/24 08:10 Dose: 40 meq Sertraline HCl (Sertraline Hcl 50 Mg Tablet) 50 mg PO DAILY [facility] Stop: 09/01/24 08:59 Last Admin: 08/06/24 08:06 Dose: 50 mg Spironolactone (Spironolactone 25 Mg Tab) 50 mg PO QAM [facility] Stop: 09/05/24 08:59 Last Admin: 08/06/24 08:06 Dose: 50 mg Umeclidinium [place] (Umeclidinium [place] 62.5mcg/Blister 7 Puffs/Inhaler) 1 puffs INH DAILY [facility]; Protocol Stop: 09/01/24 08:59 Last Admin: 08/06/24 08:07 Dose: 1 puffs PG Care Time/CCT Total # of Minutes Spent Total Time Spent with Patient: Total time spent is greater than 50% in coordination of care (as documented) at patient's floor/unit and/or counseling patient: Coding Level of Care Code 47113 SUB INP/OBS CARE 3/50MIN Diagnoses Acute on chronic heart failure with preserved ejection fraction (HFpEF) I50.33 Bradycardia R00.1 CAD (coronary artery disease) I25.10 Paroxysmal atrial fibrillation I48.0 Pulmonary hypertension I27.20 Tricuspid regurgitation I07.1 Anticoagulant long-term use Z79.01 Hypertension I10 Dyslipidemia E78.5
--- NOTE | 2024-08-06 22:08 | Podiatry Progress Note ---
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 - Just returned from angiography. Not tolerating laying still well, but has daughter helping at bedside. - Dressings are clean, dry, and intact. Wound care nursing to place vac later today. Left intact for now. - With likely right foot OM, will need IV antibiotics, pending pathology/culture findings. - Very poor prognosis from surgical intervention yesterday; combination of poor arterial inflow clinically and extensive nature of wound. Further, nursing has noticed she exensively picks at her wounds, including the sacral ulcers conc omitantly with her foot ulcers. With this level of noncompliance, she is unlikely to tolerate the level of wound care/dedication to hygiene required to heal these wounds. - Will continue to follow. Admission and Anticipated Discharge Date Admission Date: July 31, 2024 Subjective Seen at bedside. Complaints of pain and discomfort from laying still, post- angiogram. Results of angiogram pending at time of exam. No new concerns/complaints regarding feet and ankles. Review of Systems Constitutional: no fever, no chills and no fatigue Eyes: no problem reported Ear, Nose, Mouth, Throat: no problem reported Respiratory: no problem reported Cardiovascular: + edema; no problem reported Gastrointestinal: no nausea, no vomiting and no problem reported Genitourinary: no problem reported Musculoskeletal: no problem reported Integumentary: + skin ulcer, + wounds and + erythema Neurologic: + loss of sensation, + numbness and + pa resthesia; no generalized weakness Psychiatric: no problem reported Physical Exam Physical Exam: Lower extemity exam: Diffuse pitting edema, cellulitis, and extensive wound formation noted to b/l lower extremities. Largest uclerations are noted to the right anterior ankle where the TA tendon is immediately visualized, the dorsal foot, and the plantar heel, with a large dorsal ulceration to the left midfoot and under the left heel. No debridement performed due to pain. Please see inpatient wound images for definitive imaging of these ulcers. DP/PT pulses nonpalpable. CFT brisk to digits of left, delayed on the right. Pain sensation intact; light touch diminished. cabb Constitutional: WD/WN, vitals as above + ill appearing and + obese; no acute distress Eyes: PERRL, conjunctivae normal, anicteric sclerae ENMT: external ear and nose normal, oropharynx normal Neck: trachea midline, no thyromegaly normal visual inspection Respiratory: normal respiratory effort; no respiratory distress Cardiovascular: Rate/Rhythm: regular rate and regular rhythm Chest (Breasts): Chest: normal inspection of chest Gastrointestinal (Abdomen): Inspection/Auscultation: abdomen normal to inspection Percussion/Palpation: + abdomen tender and abdomen soft Musculoskeletal: no cyanosis or clubbing, extremities motor strength 5/5 Head/Neck/Chest: normocephalic and head atraumatic Extremities: extremities normal to inspection Neurologic: awake; no focal motor deficits Psychiatric: A+Ox3, euthymic affect Results & Data Results & Data Vital Signs (Past 12 Hours) Vital Signs Temp Pulse Pulse Resp BP BP Pulse Ox 08/06/24 20:08 36.7 C 63 20 137/78 90 08/06/24 16:05 36.4 C L 59 L 19 152/80 H 91 08/06/24 14:54 52 L 08/06/24 12:15 163/63 H 08/06/24 12:00 172/99 H O2 Del Method O2 Flow Rate 08/06/24 20:08 Nasal Cannula 2 08/06/24 16:05 Nasal Cannula 2 08/06/24 14:54 08/06/24 12:15 08/06/24 12:00
[2024-08-06] MEDS: MELATONIN 3 MG TAB PO PRN (22:35)
[2024-08-06] MEDS: HYDROmorphone INJ 1 MG/ML SYRINGE IV STA (22:35)
[2024-08-06] MEDS: ACETAMINOPHEN 500 MG TAB PO SCH (22:35)
--- NOTE | 2024-08-06 22:52 | Vascular Medicine ProgressNote ---
Date of Service August 06, 2024 Assessment & Plan (1) Peripheral arterial disease: Plan: 2. Bilateral LE ulcerations, cellulitis 3. Type 2 diabetes 4. Acute HFpEF 5. Paroxysmal AF/Tachy-reema 6. Suspected CVI Post successful RLE endovascular intervention with stent to RT External iliac and angioplasty with VIOLET to RT SFA. Good angiographic result with 3 vessel distal runoff to the foot. -- loaded with clopidogrel post procedure. continue dual therapy with clopidogrel/Eliquis for at least 1 month. -- repeat non-invasive vascular testing in 2 weeks. -- has LT SFA disease as well. Plan for LT SFA intervention as an outpatient. Admission and Anticipated Discharge Date Admission Date: July 31, 2024 Subjective Seen this evening post procedure. Endorsing pain in RT foot after wound vac placement. No pain at RT radial or LT SLURRY TANK TENDER access site. Review of Systems Review of Systems: All systems reviewed & are unremarkable except as noted in HPI & below Physical Exam Physical Exam: General: Uncomfortable Eyes: Sclerae anicteric Lungs: Clear to auscultation bilaterally Cardiac: Irregular irregular Abdomen: Soft, nontender Psych: Alert orient x3, drowsy Extremities/Vascular: --Right radial artery access site with no ecchymosis, hematoma. Distal pulse and sensation intact. --No hematoma at left SLURRY TANK TENDER access site. Right foot dressed with wound VAC in place. Results & Data Vital Signs (Past 12 Hours) Vital Signs Temp Pulse Pulse Resp BP BP Pulse Ox 08/06/24 22:38 97.2 F L 60 18 126/68 97 08/06/24 20:08 98.1 F 63 20 137/78 90 08/06/24 16:05 97.5 F L 59 L 19 152/80 H 91 08/06/24 14:54 52 L 08/06/24 12:15 163/63 H 08/06/24 12:00 172/99 H O2 Del Method O2 Flow Rate 08/06/24 22:38 Nasal Cannula 2 08/06/24 20:08 Nasal Cannula 2 08/06/24 16:05 Nasal Cannula 2 08/06/24 14:54 08/06/24 12:15 08/06/24 12:00 PG Care Time/CCT Total # of Minutes Spent Total Time Spent with Patient: Total time spent is greater than 50% in coordination of care (as documented) at patient's floor/unit and/or counseling patient: Coding Level of Care Code 77184 SUB INP/OBS CARE MIN Diagnoses Peripheral arterial disease I73.9
[2024-08-07 07:05] LABS: Hematocrit (blood only) 43.3 % (37.0-47.0); Hemoglobin 12.8 g/dl (12.0-16.0); Mean Corpuscular Hemoglobin 25.4 pg (25.0-34.0); Mean Corpuscular Hgb Conc 29.6 g/dL (32.0-36.0); Mean Corpuscular Volume 86.1 fL (80.0-100.0); Mean Platelet Volume 10.3 fL (9.4-12.4); Platelet Count 330 K/uL (130-400); RDW Coefficient of Variation 20.3 % (11.5-14.5); RDW Standard Deviation 61.9 fL (36.4-46.3); Red Blood Count 5.03 M/uL (4.20-5.40); White Blood Count 11.91 K/ul (4.8-10.8)
[2024-08-07 07:21] LABS: BUN Creatinine Ratio 12.7 (10-20); Calcium 8.3 mg/dl (8.6-10.3); Creatinine Clr Calc Pharmacy 73.7 ml/min; Potassium 3.2 mmol/L (3.5-5.1)
[2024-08-07] MEDS: FUROSEMIDE 40 MG/4 ML VIAL IV SCH (08:23)
[2024-08-07] MEDS: CLOPIDOGREL BISULFATE 75 MG TAB PO SCH (08:25)
--- NOTE | 2024-08-07 09:39 | Cardiology Progress Note ---
Date of Service August 07, 2024 Assessment & Plan (1) Acute on chronic heart failure with preserved ejection fraction (HFpEF): (2) Bradycardia: (3) CAD (coronary artery disease): (4) Paroxysmal atrial fibrillation: (5) Pulmonary hypertension: (6) Tricuspid regurgitation: (7) Anticoagulant long-term use: (8) Hypertension: (9) Dyslipidemia: Plan ASSESSMENT/PLAN: 1. Acute on chronic heart failure with preserved EF: Still markedly hypervolemic. She did not affect good diuresis yesterday. Lasix was increased to 40 mg twice daily. She may require 80 mg in a single dose. Or 80 mg twice daily. Potassium continues to be low. Continue spironolactone. Renal function stable. Apparently an adverse reaction to SGLT2 inhibitors. 2. Bradycardia: Mild. No overt symptoms. 3. CAD: Medical therapy was recommended for mostly nonobstructive CAD. High intensity statin therapy. On Eliquis. 4. Paroxysmal atrial fibrillation: She is continuing on Eliquis. Amiodarone reinitiated. We may need to increase her amiodarone to 200 mg if she has frequent recurrences. Ideally she would get a pacemaker for tachybradycardia syndrome. This would obviate the need for amiodarone and allow us to concentrate on rate control. Poor candidate at this time given her infection. 5. Anticoagulation: Continue Eliquis 5 mg twice daily 6. Tricuspid regurgitation: May improve with diuresis as above. Continue to monitor. 7. Pulmonary hypertension: Likely related to her hypervolemic state. Diurese as above. 8. Dyslipidemia: Continue statin therapy 9. Hypotension: Has a history of hypertension but has been mildly hypotensive here at times. 10. Lower extremity wounds/osteomyelitis: Revascularized yesterday. Infectious disease following. Admission and Anticipated Discharge Date Admission Date: July 31, 2024 Subjective This morning patient complained primarily of back discomfort. She did not report symptoms at the groin access site yesterday. She does describe some "shooting" pains in the foot periodically. No breathing difficulty. Review of Systems Review of Systems: Per HPI Physical Exam Physical Exam: Gen.: No acute distress. Somnolent. Arousable to verbal stimuli. HEENT: Anicteric sclera. Cardiac: Regular. Bradycardic in the 50s. Normal S1-S2. No murmur appreciated Pulmonary: Decreased breath sounds bilaterally, but otherwise clear to auscultation bilaterally without wheezes, rales, or rhonchi. Abdomen: Fairly tense in the lower portions. Notable anasarca. Extremities: Wound VAC on the right leg. Left leg bandage. Tense ascites bilaterally. Results & Data Vital Signs (Past 12 Hours) Vital Signs Temp Pulse Pulse Resp BP Pulse Ox Pulse Ox 08/07/24 07:44 36.4 C L 54 L 18 114/66 98 08/07/24 03:41 36.4 C L 18 102/56 L 99 08/07/24 03:40 44 L 08/06/24 23:00 96 08/06/24 22:38 36.2 C L 60 18 126/68 97 08/06/24 22:11 48 L O2 Del Method O2 Del Method O2 Flow Rate O2 Flow Rate 08/07/24 07:44 Nasal Cannula 2 08/07/24 03:41 Nasal Cannula 2 08/07/24 03:40 08/06/24 23:00 Nasal Cannula 2 08/06/24 22:38 Nasal Cannula 2 08/06/24 22:11 Laboratory Results Abnormal Lab Results 08/06/24 08/06/24 08/06/24 10:23 10:31 10:40 WBC RBC Hgb Hct MCV MCH MCHC RDW Std Deviation RDW Coeff of Rasheed Plt Count MPV Activ Coag Time Kaolin 397 H 397 H 372 H Sodium Potassium Chloride Carbon Dioxide Anion Gap BUN Creatinine Est Cr Clr Drug Dosing eGFR BUN/Creatinine Ratio Glucose POC Glucose Calcium 08/06/24 08/06/24 08/06/24 12:58 16:27 19:27 WBC RBC Hgb Hct MCV MCH MCHC RDW Std Deviation RDW Coeff of Rasheed Plt Count MPV Activ Coag Time Kaolin Sodium Potassium Chloride Carbon Dioxide Anion Gap BUN Creatinine Est Cr Clr Drug Dosing eGFR BUN/Creatinine Ratio Glucose POC Glucose 76 100 H 101 H Calcium 08/07/24 08/07/24 06:41 07:23 WBC 11.91 H RBC 5.03 Hgb 12.8 Hct 43.3 MCV 86.1 MCH 25.4 MCHC 29.6 L RDW Std Deviation 61.9 H RDW Coeff of Rasheed 20.3 H Plt Count 330 MPV 10.3 Activ Coag Time Kaolin Sodium 139 Potassium 3.2 L Chloride 92 L Carbon Dioxide 39 H Anion Gap 8 BUN 9 Creatinine 0.71 Est Cr Clr Drug Dosing 73.7 eGFR 93.13 BUN/Creatinine Ratio 12.7 Glucose 71 POC Glucose 87 Calcium 8.3 L PG Care Time/CCT Total # of Minutes Spent Total Time Spent with Patient: Total time spent is greater than 50% in coordination of care (as documented) at patient's floor/unit and/or counseling patient: Coding Level of Care Code 50452 SUB INP/OBS CARE 2/35MIN Diagnoses Acute on chronic heart failure with preserved ejection fraction (HFpEF) I50.33 Bradycardia R00.1 CAD (coronary artery disease) I25.10 Paroxysmal atrial fibrillation I48.0 Pulmonary hypertension I27.20 Tricuspid regurgitation I07.1 Anticoagulant long-term use Z79.01 Hypertension I10 Dyslipidemia E78.5
--- NOTE | 2024-08-07 11:05 | Hospitalist Progress Note ---
Date of Service August 07, 2024 Assessment & Plan (1) Diabetic foot infection: Plan: Chronic venous stasis and ulcerations bilateral lower extremities showing necrosis and tendon exposure on dorsal right foot Osteomyelitis right foot seen with debridement 08/05 - recent A1c 08/01/2024 5.7% - Mild leukocytosis secondary to recent procedures - afebrile, VSS - no signs of systemic infection at this time - pain management with Tylenol, Home oxycodone dose as needed, IV morphine prn added 08/07 due to ongoing severe right foot pain - Wound cultures showed pseudomonas aeruginosa - susceptible to Zosyn; along with Kerstersia gyiorum and Alcaligenes faecalis - Zosyn should provide coverage, ID consulted - surgical cultures pending; Talus bone pathology pending - Both blood cultures showed no growth - Continue Zosyn, Vancomycin discontinued 08/03 - Wound care consulted; see images in chart - wound vac to right foot wound 08/06 - Podiatry following - surgical debridement 08/05 showed possible osteomyelitis - discussed possible right BKA given poor prognosis with PAD and noncompliance - ID following - will need prolonged IV abx with osteomyelitis PAD with CAD - lipid panel showing total cholesterol and LDL WNL, HDL low (21) - continue daily baby aspirin, high intensity statin; Plavix x 1 month (until 09/07) - arterial Doppler confirming peripheral vascular disease - consulted Dr. Tolbert for vascular management; bilateral LE angiogram 08/06 with stent to RT External iliac and angioplasty with VIOLET to RT SFA - repeat noninvasive vascular testing in 2 weeks - plan for LT SFA intervention as outpatient (2) Acute on chronic heart failure with preserved ejection fraction (HFpEF): Plan: Improving Appears to be due to acute on chronic heart failure with preserved ejection fraction; noncompliant on home diuretic With anasarca, ascites, and pulm edema - Last echocardiogram 08/01/24 showed EF 60 to 65%, no motion wall abnormalities, right ventricle mildly dilated, severe pulmonary hypertension, worsening tricuspid regurg - BNP 1480 on admission - Heart healthy, low sodium, fluid restricted diet - Strict I&O monitoring - Daily weights - weight is decreasing - cardiology following - referral to CHF clinic made Hypokalemia - resumed home potassium 08/02 - potassium repletion throughout hospital stay; patient with resistance to taking PO K+ - 3 gm magnesium given 08/03 - spironolactone increased to 50 mg 08/06 due to continued hypokalemia - increased potassium to 40 Meq BID x 4 days 08/07 - Increase Lasix back to BID 08/07 given continued fluid retention, spoke with cut off saw set up operator - May need to increase to 80 mg in a single dose, or possibly BID - Daily BMP; Mg in AM (3) Acute hypoxemic respiratory failure: Plan: Improving, Due to underlying CHF - Oxygen per nasal cannula to maintain saturation greater than 90% - patient not on oxygen at home - patient denies dyspnea, cough, dizziness/lightheadedness - Wean off O2 as tolerated; currently on 2L nasal cannula (4) Persistent atrial fibrillation: Plan: Paroxysmal atrial fibrillation on Eliquis Chronic history of tachybradycardia syndrome - seen by cardiology outpatient previously; does not follow with them closely - Cardiology following - will need outpatient follow-up with electrophysiology to discuss pacemaker for tachybradycardia syndrome - not a candidate for pacemaker at this time given wounds - sinus bradycardia on admission -> converted to a fib with RVR (HR up to 180) 08/04 -> back into sinus bradycardia 0937 08/04 - thyroid panel showing hypothyroidism; possibly secondary to amiodarone use vs overmedication with methimazole - Continue Eliquis - discontinued metoprolol on admission - discussed with cardiology, restarted patient on 100 mg amiodarone 08/04 (200 mg at home - lowered dose due to bradycardia) - monitor thyroid function and transaminase levels while on amiodarone (repe at labs 08/15) (5) Nausea & vomiting: Plan: Present on admission, continued - CT of abd/pelv on admission showed no acute concerns, ascites - Zofran IV as needed Constipation; resolved - Colace prn; miralax discontinued - Bisacodyl suppository 08/04 with bowel movement - discontinue iron supplement 08/05 as could have been contributing to symptoms (6) Diabetes mellitus type 2 in obese: Plan: history of type 2 diabetes with diabetic foot ulcers - Diabetic diet - Hold home Januvia - A1c 5.7 - NovoLog discontinued 08/03 as patient needing minimal insulin and hypoglycemic at times - glucose stable (7) Hyperthyroidism: Plan: - She takes methimazole and amiodarone chronically - Thyroid function on admission showing hypothyroidism; TSH 9.3, T3 1.83 - continue to hold methimazole - resumed amiodarone at lower dose 08/04 - follow TSH in 2 weeks (repeat 08/15) (8) Hypertension: Plan: Stable Hypotensive on admission, resolved - discontinued metoprolol - Will continue with IV Lasix (9) Sacral decubitus ulcer, stage II: Plan: - wound care consulted - to sacrum, left and right gluteal folds - clean with saline and cover with optifoam. Change QOD and prn *Pressure ulcers of right and left buttock, stage 3 (10) Anemia: Plan: appears to be chronic - Hypochromic microcytic anemia - Iron panel and ferritin level confirm iron deficiency anemia - iron supplement started 08/03 but with constipation and nausea, discontinued 08/05 - could consider IV Venofer at some point (11) Hypocalcemia: Plan: - calcium consistently low, vit d low at 13 - supplement with Ca + vit D started 08/03 Plan Chronic stable diagnoses: Depression continue sertraline VTE ppx: Eliquis Diet: heart healthy, low-sodium, diabetes, fluid restricted diet Code status: full Dispo: PCU/telemetry; wound debridement 08/05 with podiatry and angiogram 08/06 with vascular; awaiting surgical cultures Admission and Anticipated Discharge Date Admission Date: July 31, 2024 Supervising Physician Co-Signing Physician Notes Physician Egg Caser Supervision note: I have not personally seen and examined the patient, but discussed and verified the sharma points of the history and physical along with the plan with ROXANNE Lino with the following exceptions and/or additions: None Subjective Patient seen at bedside, doing well with no acute events overnight. She stated she is not nauseous right now. She has 8 out of 10 pain in her right foot. Notified nurse to give IV morphine. She takes 10 mg oxycodone daily at home due to chronic back pain, likely tolerance to opioids. She was on 3 L O2 nasal cannula on exam, she stated she is not short of breath. She denies abdominal pain. Gould catheter still in place; notified nurse that this is to be removed in they can attempt to try a PureWick instead. Tele: Sinus bradycardia, HR 40s-50s Review of Systems Review of Systems: See HPI Physical Exam Physical Exam: The patient is alert and oriented 3, well developed and well nourished, normocephalic and atraumatic, in no acute distress. Non-toxic appearing. HEENT- EOMI, mucous membranes moist. Hearing grossly intact. Heart-normal S1 and S2. No murmurs, rubs or gallops. Lungs-decreased bilaterally, no respiratory distress, no accessory muscle use. 2L O2 via nasal cannula. Abdomen-normal bowel sounds and soft. Ascites noted. Non-tender. Extremities- no clubbing, cyanosis. +1 lower extremity edema. Left foot with surgical dressings. Wound vac to right dorsal foot. Rheumatologic- decreased range of motion due to pain. Psychiatric- normal affect. Results & Data Results & Data Vital Signs (Past 12 Hours) Vital Signs Temp Pulse Pulse Resp BP Pulse Ox O2 Del Method 08/07/24 09:43 Nasal Cannula 08/07/24 09:42 51 L 08/07/24 07:44 36.4 C L 54 L 18 114/66 98 Nasal Cannula 08/07/24 03:41 36.4 C L 18 102/56 L 99 Nasal Cannula 08/07/24 03:40 44 L O2 Flow Rate 08/07/24 09:43 3 08/07/24 09:42 08/07/24 07:44 2 08/07/24 03:41 2 08/07/24 03:40 Laboratory Results Reviewed CBC, BMP PG Care Time/CCT Total # of Minutes Spent Total Time Spent with Patient: Total time spent is greater than 50% in coordination of care (as documented) at patient's floor/unit and/or counseling patient: Coding Level of Care Code 04537 SUB INP/OBS CARE 3/50MIN Diagnoses Diabetic foot infection E11.628; L08.9 Acute on chronic heart failure with preserved ejection fraction (HFpEF) I50.33 Acute hypoxemic respiratory failure J96.01 Persistent atrial fibrillation I48.19 Nausea & vomiting R11.2 Diabetes mellitus type 2 in obese E11.69; E66.9 Hyperthyroidism E05.90 Hypertension I10 Sacral decubitus ulcer, stage II L89.152 Anemia D64.9 Hypocalcemia E83.51
[2024-08-07] MEDS: MoRPHine SULFATE 2 MG/ML CARP IV PRN (11:25)
[2024-08-07] MEDS: POTASSIUM CHLORIDE CRTAB 20 MEQ TABCR PO SCH (21:04)
[2024-08-08 06:44] LABS: Hematocrit (blood only) 38.5 % (37.0-47.0); Hemoglobin 11.8 g/dl (12.0-16.0); Mean Corpuscular Hemoglobin 25.4 pg (25.0-34.0); Mean Corpuscular Hgb Conc 30.6 g/dL (32.0-36.0); Mean Corpuscular Volume 82.8 fL (80.0-100.0); Mean Platelet Volume 10.8 fL (9.4-12.4); Platelet Count 331 K/uL (130-400); RDW Coefficient of Variation 20.1 % (11.5-14.5); RDW Standard Deviation 60.4 fL (36.4-46.3); Red Blood Count 4.65 M/uL (4.20-5.40); White Blood Count 11.61 K/ul (4.8-10.8)
[2024-08-08 07:17] LABS: Albumin Globulin Ratio 0.8 (0.9-2); Albumin Level 2.6 gm/dl (3.4-5.0); BUN Creatinine Ratio 14.5 (10-20); Bilirubin,Total 0.7 mg/dl (0.2-1.0); Calcium 8.2 mg/dl (8.6-10.3); Creatinine Clr Calc Pharmacy 75.9 ml/min; Globulin 3.3 gm/dl (2.5-4.0); Magnesium 1.9 mg/dl (1.7-2.4); Potassium 3.7 mmol/L (3.5-5.1); Total Protein 5.9 gm/dl (6.0-8.3)
--- NOTE | 2024-08-08 07:59 | Hospitalist Progress Note ---
Date of Service August 08, 2024 Assessment & Plan (1) Diabetic foot infection: Plan: Bilateral foot ulcers with necrosis, osteomyelitis of dorsal right foot wound wound debridement 08/05 and angiogram 08/06 with stents - Mild leukocytosis secondary to recent procedures - afebrile, VSS, blood cultures negative - no signs of systemic infection at this time - Continue IV Tylenol, home oxycodone, and prn morphine - see hypercapnia below; to only use morphine when Tylenol and oxycodone do not relieve pain - Wound cultures showed pseudomonas aeruginosa, Kerstersia gyiorum, and Alcaligenes faecalis - continue Zosyn, ID following as will need prolonged course IV abx - surgical cultures pending; Talus bone pathology pending - Wound care consulted; see images in chart - wound vac to right foot wound 08/06 - Podiatry following - discussed possible right BKA given poor prognosis with PAD and noncompliance (2) Acute on chronic heart failure with preserved ejection fraction (HFpEF): Plan: With anasarca, ascites, and pulm edema; noncompliant on home diuretic - Last echocardiogram 08/01/24 showed EF 60 to 65%, no motion wall abnormalities, right ventricle mildly dilated, severe pulmonary hypertension, worsening tricuspid regurg - BNP 1480 on admission - Strict I&O monitoring and daily weights - cardiology following - referral to CHF clinic made Hypokalemia; improving - potassium repletion throughout hospital stay; patient with resistance to taking PO K+ - spironolactone increased to 50 mg 08/06 - potassium 40 meq once daily Hypomagnesia - repletion throughout hospital course - With likely contraction alkalosis from intravascular volume depletion, hypoalbuminemia, do not want to further increase Lasix, but rather will give one dose Diamox 250mg IV, follow BMP -continue Boost shakes for improved nutrition - Daily BMP; Mg in AM (3) Acute hypoxemic respiratory failure: Plan: Due to underlying CHF - patient not on oxygen at home - Wean off O2 as tolerated; currently on 2L nasal cannula - elevated pO2 on ABG - nurse attempted to lower flow rate but dropped O2 in mid 80s CO2 retention ; secondary to sedation overdose vs contraction alkalosis with diuresis, possibly component of hypothyroidism - CO2 43 on BMP 08/08; has been increasingly elevated - ABG on 08/08 7.47/56/112 on 2 L O2 which likely reflects her known chronic respiratory acidosis with compensatory metabolic alkalosis compensation along with acute contraction alkalosis -At risk for CO2 retention due to COPD-caution with opioids-morphine may be making her nauseated-switch to Dilaudid and watch for CO2 retention - recommend nocturnal pulse ox at rehab facility and formal out patient sleep study - will likely improve with pain medication adjustment and further diuresis (4) Peripheral arterial disease: Plan: PAD with CAD bilateral LE angiogram 08/06 with stent to RT External iliac and angioplasty with VIOLET to RT SFA - continue daily baby aspirin, high intensity statin; Plavix x 1 month (until 09/07) - consulted Dr. Tolbert for vascular management - repeat noninvasive vascular testing in 2 weeks - plan for LT SFA intervention as outpatient (5) Persistent atrial fibrillation: Plan: Chronic history of tachybradycardia syndrome and paroxysmal atrial fibrillation on Eliquis - Cardiology following - will need outpatient follow-up with electrophysiology to discuss pacemaker for tachybradycardia syndrome - not a candidate for pacemaker at this time given wounds - sinus bradycardia on admission -> converted to a fib with RVR (HR up to 180) 08/04 -> back into sinus bradycardia 0937 08/04 - thyroid panel showing hypothyroidism; possibly secondary to amiodarone use vs overmedication with methimazole - Continue Eliquis - discontinued metoprolol on admission - discussed with cardiology, restarted patient on 100 mg amiodarone (200 mg at home - lowered dose due to bradycardia) - monitor thyroid function and transaminase levels while on amiodarone (repeat labs 08/15) (6) Nausea & vomiting: Plan: nausea every morning due to taking medications on empty stomach and may be due to morphine use? - CT of abd/pelv on admission showed no acute concerns, ascites - encourage food intake in AM (7) Diabetes mellitus type 2 in obese: Plan: history of type 2 diabetes with diabetic foot ulcers - Diabetic diet - Hold home Januvia - A1c 5.7 - NovoLog discontinued 08/03 as patient needing minimal insulin and hypoglycemic at times - glucose stable (8) Hyperthyroidism: Plan: - She takes methimazole and amiodarone chronically - Thyroid function on admission showing hypothyroidism; TSH 9.3, T3 1.83 - continue to hold methimazole - resumed amiodarone at lower dose - follow TSH in 2 weeks (repeat 11/3) (9) Anemia: Plan: appears to be chronic - Hypochromic microcytic anemia - Iron panel and ferritin level confirm iron deficiency anemia - iron supplement started 08/03 but with constipation and nausea, discontinued 08/05 - IV Venofer given 08/08 Plan Pressure ulcers of right and left buttock, stage 3 - wound care following Chronic stable diagnoses: Depression continue sertraline Hypocalcemia - continue vitamin D and calcium supplement HTN - discontinued metoprolol, Will continue with IV Lasix VTE ppx: Eliquis Diet: heart healthy, diabetes, fluid restricted diet Code status: full Dispo: PCU/telemetry; awaiting surgical cultures, possible amputation, will need inpt rehab Admission and Anticipated Discharge Date Admission Date: July 31, 2024 Supervising Physician Co-Signing Physician Notes Physician Housing Liaison Supervision note: I have not personally seen and examined the patient, but discussed and verified the sharma points of the history and physical along with the plan with ROXANNE Lino with the following exceptions and/or additions: None Subjective Patient seen at bedside, doing well. She stated that she is nauseous but it is improving. Discussed that she is nauseous in the morning because she will not eat her breakfast and takes medications on an empty stomach. She stated that she requested tomato soup for breakfast to try to help with this but it tasted too sugary. Her diet was changed to easy to chew because she is complained about the food being too hard in the past. She is currently on 2 L oxygen via nasal cannula, she denies shortness of breath. She does not use CPAP or BiPAP at home. Patient agreeable to Venofer, discussed risk of anaphylaxis. She is hopeful that current management will heal wounds, discussed that podiatry ment ioned she may end up needing an amputation. As per nursing tried to wean patient off nasal cannula and her O2 dropped to 86%. Tele: Sinus bradycardia, HR 47. Review of Systems Review of Systems: See HPI Physical Exam Physical Exam: The patient is alert and oriented 3, well developed and well nourished, normocephalic and atraumatic, in no acute distress. Non-toxic appearing. HEENT- EOMI, mucous membranes moist. Hearing grossly intact. Heart-normal S1 and S2. No murmurs, rubs or gallops. Lungs-decreased bilaterally, no respiratory distress, no accessory muscle use. 2L O2 via nasal cannula. Abdomen-normal bowel sounds and soft. Ascites noted. Non-tender. Extremities- no clubbing, cyanosis. +1 lower extremity edema. Left foot with surgical dressings. Wound vac to right dorsal foot. Rheumatologic- decreased range of motion due to pain. Psychiatric- normal affect. Results & Data Results & Data Vital Signs (Past 12 Hours) Vital Signs Temp Pulse Pulse Resp BP Pulse Ox Pulse Ox 08/08/24 07:38 36.6 C 52 L 20 105/62 91 08/08/24 02:51 36.5 C 52 L 18 108/58 L 98 08/07/24 23:00 99 08/07/24 22:51 36.5 C 50 L 20 125/62 99 08/07/24 21:46 52 L O2 Del Method O2 Del Method O2 Flow Rate O2 Flow Rate 08/08/24 07:38 Nasal Cannula 2 08/08/24 02:51 Nasal Cannula 2 08/07/24 23:00 Nasal Cannula 2 08/07/24 22:51 Nasal Cannula 2 08/07/24 21:46 Laboratory Results reviewed CBC, BMP, mg, abg PG Care Time/CCT Total # of Minutes Spent Total Time Spent with Patient: Total time spent is greater than 50% in coordination of care (as documented) at patient's floor/unit and/or counseling patient: Coding Level of Care Code 18357 SUB INP/OBS CARE 3/50MIN Diagnoses Diabetic foot infection E11.628; L08.9 Acute on chronic heart failure with preserved ejection fraction (HFpEF) I50.33 Acute hypoxemic respiratory failure J96.01 Peripheral arterial disease I73.9 Persistent atrial fibrillation I48.19 Nausea & vomiting R11.2 Diabetes mellitus type 2 in obese E11.69; E66.9 Hyperthyroidism E05.90 Anemia D64.9
--- NOTE | 2024-08-08 09:14 | Cardiology Progress Note ---
Date of Service August 08, 2024 Assessment & Plan (1) Acute on chronic heart failure with preserved ejection fraction (HFpEF): (2) Bradycardia: (3) CAD (coronary artery disease): (4) Paroxysmal atrial fibrillation: (5) Pulmonary hypertension: (6) Tricuspid regurgitation: (7) Anticoagulant long-term use: (8) Hypertension: (9) Dyslipidemia: Plan ASSESSMENT/PLAN: 1. Acute on chronic heart failure with preserved EF: Still markedly hypervolemic. She did not affect good diuresis yesterday. I would increase Lasix to 80 mg twice daily. Renal function stable. 2. Bradycardia: Mild. No overt symptoms. 3. CAD: Medical therapy was recommended for mostly nonobstructive CAD. High intensity statin therapy. On Eliquis. 4. Paroxysmal atrial fibrillation: She is continuing on Eliquis. Amiodarone reinitiated. No recurrence in the past 48 hours. 5. Anticoagulation: Continue Eliquis 5 mg twice daily 6. Tricuspid regurgitation: May improve with diuresis. 7. Pulmonary hypertension: Likely related to her hypervolemic state. Continue attempts at diuresis. 8. Dyslipidemia: Continue statin therapy 9. Hypotension: Has a history of hypertension but has been mildly hypotensive here at times. Stable recently. 10. Lower extremity wounds/osteomyelitis: Revascularized. Infectious disease and podiatry following. Admission and Anticipated Discharge Date Admission Date: July 31, 2024 Subjective This morning the patient complained primarily of back discomfort. Minimal pain in her feet, just shooting pains at times. She denied any breathing difficulty. She has not been dizzy. No ambulation. She slept somewhat upright but did not complain of orthopnea. Review of Systems Review of Systems: Per HPI Physical Exam Physical Exam: Gen.: Alert. Answered all questions appropriately. HEENT: Anicteric sclera. Cardiac: Regular. Bradycardic in the 50s. Normal S1-S2. No murmur appreciated Pulmonary: Some decreased breath sounds and crackles at the bases bilaterally. No wheezes. Normal respiratory effort. Abdomen: Fairly tense in the lower portions. Notable anasarca. Extremities: Wound VAC on the right leg. Left leg bandage. Tense ascites bilaterally. Results & Data Vital Signs (Past 12 Hours) Vital Signs Temp Pulse Pulse Resp BP Pulse Ox Pulse Ox 08/08/24 07:38 36.6 C 52 L 20 105/62 91 08/08/24 02:51 36.5 C 52 L 18 108/58 L 98 08/07/24 23:00 99 08/07/24 22:51 36.5 C 50 L 20 125/62 99 08/07/24 21:46 52 L O2 Del Method O2 Del Method O2 Flow Rate O2 Flow Rate 08/08/24 07:38 Nasal Cannula 2 08/08/24 02:51 Nasal Cannula 2 08/07/24 23:00 Nasal Cannula 2 08/07/24 22:51 Nasal Cannula 2 08/07/24 21:46 Laboratory Results Abnormal Lab Results 08/07/24 08/07/24 08/07/24 11:06 16:15 19:54 WBC RBC Hgb Hct MCV MCH MCHC RDW Std Deviation RDW Coeff of Rasheed Plt Count MPV Sodium Potassium Chloride Carbon Dioxide Anion Gap BUN Creatinine Est Cr Clr Drug Dosing eGFR BUN/Creatinine Ratio Glucose POC Glucose 158 H 94 102 H Calcium Magnesium Total Bilirubin AST ALT Alkaline Phosphatase Total Protein Albumin Globulin Albumin/Globulin Ratio 08/08/24 08/08/24 05:51 07:02 WBC 11.61 H RBC 4.65 Hgb 11.8 L Hct 38.5 MCV 82.8 MCH 25.4 MCHC 30.6 L RDW Std Deviation 60.4 H RDW Coeff of Rasheed 20.1 H Plt Count 331 MPV 10.8 Sodium 141 Potassium 3.7 Chloride 93 L Carbon Dioxide 43 H* Anion Gap 5 BUN 10 Creatinine 0.69 Est Cr Clr Drug Dosing 75.9 eGFR 95.06 BUN/Creatinine Ratio 14.5 Glucose 69 L POC Glucose 73 Calcium 8.2 L Magnesium 1.9 Total Bilirubin 0.7 AST 24 ALT 8 Alkaline Phosphatase 85 Total Protein 5.9 L Albumin 2.6 L Globulin 3.3 Albumin/Globulin Ratio 0.8 L PG Care Time/CCT Total # of Minutes Spent Total Time Spent with Patient: Total time spent is greater than 50% in coordination of care (as documented) at patient's floor/unit and/or counseling patient: Coding Level of Care Code 92115 SUB INP/OBS CARE 2/35MIN Diagnoses Acute on chronic heart failure with preserved ejection fraction (HFpEF) I50.33 Bradycardia R00.1 CAD (coronary artery disease) I25.10 Paroxysmal atrial fibrillation I48.0 Pulmonary hypertension I27.20 Tricuspid regurgitation I07.1 Anticoagulant long-term use Z79.01 Hypertension I10 Dyslipidemia E78.5
[2024-08-08 09:51] LABS: Base Excess ABG 14.8 mEq/L (-9-1.8); HCO3 ABG 41 mmol/L (19-24); Oxygen Saturation ABG 99.2 % (90-95); PCO2 ABG 56 mmHg (35-46); PO2 ABG 112 mmHg (80-95); pH ABG 7.47 (7.35-7.45)
[2024-08-08 09:52] LABS: Allen Test Pos (Pos)
[2024-08-08] MEDS: MoRPHine SULFATE 2 MG/ML CARP IV PRN (10:37)
[2024-08-08] MEDS: IRON SUCROSE 300 MG in SODIUM CHLORIDE 0.9% 250 ML IV SCH (11:22)
[2024-08-08] MEDS: MAGNESIUM OXIDE 400 MG TAB PO ONE (12:03)
[2024-08-08] MEDS: Nursing to Pharmacy Communication ONE (12:03)
[2024-08-08 16:21] LABS: BUN Creatinine Ratio 17.4 (10-20); Creatinine Clr Calc Pharmacy 75.9 ml/min; Potassium 3.4 mmol/L (3.5-5.1)
[2024-08-08] MEDS: PIPERACILLIN/TAZOBACTAM 4.5 GM/100 ML BAG IV SCH (16:22)
[2024-08-08] MEDS: acetaZOLAMIDE 250 MG in SYRINGE 0 ML IV STA (16:22)
[2024-08-09 06:40] LABS: Hematocrit (blood only) 32.7 % (37.0-47.0); Hemoglobin 10.1 g/dl (12.0-16.0); Mean Corpuscular Hemoglobin 25.4 pg (25.0-34.0); Mean Corpuscular Hgb Conc 30.9 g/dL (32.0-36.0); Mean Corpuscular Volume 82.2 fL (80.0-100.0); Mean Platelet Volume 10.6 fL (9.4-12.4); Platelet Count 287 K/uL (130-400); RDW Coefficient of Variation 19.5 % (11.5-14.5); RDW Standard Deviation 59.5 fL (36.4-46.3); Red Blood Count 3.98 M/uL (4.20-5.40); White Blood Count 11.09 K/ul (4.8-10.8)
[2024-08-09 07:06] LABS: BUN Creatinine Ratio 19.6 (10-20); Creatinine Clr Calc Pharmacy 89.9 ml/min; Potassium 3.1 mmol/L (3.5-5.1)
[2024-08-09] MEDS: POTASSIUM CHLORIDE CRTAB 20 MEQ TABCR PO SCH (08:39)
[2024-08-09] MEDS: acetaZOLAMIDE 250 MG in SYRINGE 0 ML IV STA (15:00)
--- NOTE | 2024-08-09 15:10 | Podiatry Progress Note ---
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 - Just returned from angiography. Not tolerating laying still well, but has daughter helping at bedside. - Dressings are clean, dry, and intact. wound VAC is intact. - Continue IV antibiotics and wound care for best attempt at limb salvage. - We will continue to monitor but can discharge to rehab once infectious disease plan is in place for osteomyelitis. Admission and Anticipated Discharge Date Admission Date: July 31, 2024 Subjective patient seen at bedside. No new concerns. Is tolerating the wound VAC well without complaint. Has not been ambulating and has remained in bed since recent surgical interventions. Review of Systems Constitutional: no fever, no chills and no fatigue Eyes: no problem reported Ear, Nose, Mouth, Throat: no problem reported Respiratory: no problem reported Cardiovascular: + edema; no problem reported Gastrointestinal: no nausea, no vomiting and no problem reported Genitourinary: no problem reported Musculoskeletal: no problem reported Integumentary: + skin ulcer, + wounds and + erythema Neurologic: + loss of sensation, + numbness and + pa resthesia; no generalized weakness Psychiatric: no problem reported Physical Exam Physical Exam: Lower extemity exam: Diffuse pitting edema and wound formation noted, unchanged from prior exam. wound VAC is intact with no leakage noted and no significant drainage noted to the canister. Edema is improving with no ascending cellulitis appreciated at this time. Constitutional: WD/WN, vitals as above + ill appearing and + obese; no acute distress Eyes: PERRL, conjunctivae normal, anicteric sclerae ENMT: external ear and nose normal, oropharynx normal Neck: trachea midline, no thyromegaly normal visual inspection Respiratory: normal respiratory effort; no respiratory distress Cardiovascular: Rate/Rhythm: regular rate and regular rhythm Chest (Breasts): Chest: normal inspection of chest Gastrointestinal (Abdomen): Inspection/Auscultation: abdomen normal to inspection Percussion/Palpation: + abdomen tender and abdomen soft Musculoskeletal: no cyanosis or clubbing, extremities motor strength 5/5 Head/Neck/Chest: normocephalic and head atraumatic Extremities: extremities normal to inspection Neurologic: awake; no focal motor deficits Psychiatric: A+Ox3, euthymic affect Results & Data Results & Data Vital Signs (Past 12 Hours) Vital Signs Temp Pulse Pulse Resp BP BP Pulse Ox 08/09/24 11:30 36.6 C 79 18 115/69 96 08/09/24 08:00 36.7 C 60 16 109/74 95 08/09/24 07:00 54 L 08/09/24 03:15 36.9 C 58 L 15 133/65 92 O2 Del Method O2 Flow Rate 08/09/24 11:30 Nasal Cannula 2 08/09/24 08:00 Nasal Cannula 2 08/09/24 07:00 08/09/24 03:15 Nasal Cannula 2
--- NOTE | 2024-08-09 16:15 | Infectious Disease Progress Nt ---
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 On admission, she was afebrile, requiring up to 6L NC (now weaned down). Initial labs with WBC wnl, Cr 0.86. LFTs unremarkable. UA with 0-5 WBC. CTAP with anasarca and moderate to large ascites, which may reflect volume overload with a right pleural effusion. Right ankle XR with soft tissue swelling, no e/o bony abnormality. CXR with CM and pulmonary edema. Chest CTA neg for PE, +emphysema with possible airspace opacifications in RUL, may represent PNA with reactive LNs, small right pleural effusion with underlying atelectasis. LE arterial duplex with PVD. TTE with mild MR, moderate-severe TR, severe pulmonary HTN, technically difficult. She was admitted with bl lower extremity cellulitis, bradycardia, anasarca, and acute on chronic CHF. She was seen by vascular surgery and podiatry. S/p OR 08/05 and underwent bl excisional debridement of ulcers, right foot bone biopsy (per op note, extensive damage noted of RLE ulcerations, anterior ankle ulcer with deep probing noted to deep fascia, dorsal foot ulcer immediately extended to talus and dorsal midfoot bones bone bx taken of talus; plantar calcaneal ulceration extended to level of posterior and plantar calcaneus, lateral wound extended to fifth MT styloid process; left foot ulcerations more shallow extending to subcu tissue). She has been getting vancomycin and zosyn. ID consulted 08/05. S/p bl lower extremity angioplasty 08/06 (per op note, had lithotripsy and stenting of right external iliac artery, LISBETH of right mid SFA). Since PVD has been addressed, PO options for abx can be considered. Given probe to bone, OM is a concern. Awaiting bone biopsy and cultures to direct therapy. She has wound cultures which are from 07/31 and likely superficial cultures, and therefore not often helpful. No MRSA coverage needed since this did not grow. # C/f osteomyelitis of R foot (extension of ulcers to bone) # Bilateral LE cellulitis with ulcers s/p debridement 08/05 # WCX with Pseudomonas, alcaligenes faecalis # Peripheral vascular disease s/p angioplasty # Acute CHF # h/o T2DM - f/u OR cultures and pathology - continue zosyn - final regimen pending culture results - likely will need prolonged abx given c/f OM ID will continue to follow Camron Norman MD, MPH Infectious Disease ID Connect [facility] Call [phone] with questions Admission and Anticipated Discharge Date Admission Date: July 31, 2024 Subjective This patient recommendation is based on a telemedicine consult request which was completed asynchronously through chart review and information provided by the primary physician. The patient was not seen or examined today. The evaluation is consultative in nature and all patient care and treatment decisions can either be accepted or rejected by the patient's primary hospital-based treating physician using their own independent medical judgment for their patient. Time Spent Reviewing Chart: 21 - 30 minutes Intraop cx pending Afebrile Results & Data Vital Signs (Past 12 Hours) Vital Signs Temp Pulse Pulse Resp BP Pulse Ox O2 Del Method 08/09/24 16:09 36.6 C 80 20 129/70 93 Nasal Cannula 08/09/24 11:30 36.6 C 79 18 115/69 96 Nasal Cannula 08/09/24 08:00 36.7 C 60 16 109/74 95 Nasal Cannula 08/09/24 07:00 54 L O2 Flow Rate 08/09/24 16:09 2 08/09/24 11:30 2 08/09/24 08:00 2 08/09/24 07:00 Laboratory Results Laboratory Results - last 48 hr 08/07/24 08/07/24 08/08/24 16:15 19:54 05:51 WBC 11.61 H RBC 4.65 Hgb 11.8 L Hct 38.5 MCV 82.8 MCH 25.4 MCHC 30.6 L RDW Std Deviation 60.4 H RDW Coeff of Rasheed 20.1 H Plt Count 331 MPV 10.8 ABG pH ABG pCO2 ABG pO2 ABG HCO3 ABG O2 Saturation ABG Base Excess Star Test Oxygen Given Sodium 141 Potassium 3.7 Chloride 93 L Carbon Dioxide 43 H* Anion Gap 5 BUN 10 Creatinine 0.69 Est Cr Clr Drug Dosing 75.9 eGFR 95.06 BUN/Creatinine Ratio 14.5 Glucose 69 L POC Glucose 94 102 H Calcium 8.2 L Magnesium 1.9 Total Bilirubin 0.7 AST 24 ALT 8 Alkaline Phosphatase 85 Total Protein 5.9 L Albumin 2.6 L Globulin 3.3 Albumin/Globulin Ratio 0.8 L 08/08/24 08/08/24 08/08/24 07:02 09:45 11:14 WBC RBC Hgb Hct MCV MCH MCHC RDW Std Deviation RDW Coeff of Rasheed Plt Count MPV ABG pH 7.47 H ABG pCO2 56 H ABG pO2 112 H ABG HCO3 41 H ABG O2 Saturation 99.2 H ABG Base Excess 14.8 H Star Test Pos Oxygen Given 2L Sodium Potassium Chloride Carbon Dioxide Anion Gap BUN Creatinine Est Cr Clr Drug Dosing eGFR BUN/Creatinine Ratio Glucose POC Glucose 73 153 H Calcium Magnesium Total Bilirubin AST ALT Alkaline Phosphatase Total Protein Albumin Globulin Albumin/Globulin Ratio 08/08/24 08/08/24 08/08/24 15:40 16:18 20:08 WBC RBC Hgb Hct MCV MCH MCHC RDW Std Deviation RDW Coeff of Rasheed Plt Count MPV ABG pH ABG pCO2 ABG pO2 ABG HCO3 ABG O2 Saturation ABG Base Excess Star Test Oxygen Given Sodium 138 Potassium 3.4 L Chloride 94 L Carbon Dioxide 40 H Anion Gap 4 BUN 12 Creatinine 0.69 Est Cr Clr Drug Dosing 75.9 eGFR 95.06 BUN/Creatinine Ratio 17.4 Glucose 94 POC Glucose 86 128 H Calcium 8.0 L Magnesium Total Bilirubin AST ALT Alkaline Phosphatase Total Protein Albumin Globulin Albumin/Globulin Ratio 08/09/24 08/09/24 08/09/24 05:30 07:28 11:15 WBC 11.09 H RBC 3.98 L Hgb 10.1 L Hct 32.7 L MCV 82.2 MCH 25.4 MCHC 30.9 L RDW Std Deviation 59.5 H RDW Coeff of Rasheed 19.5 H Plt Count 287 MPV 10.6 ABG pH ABG pCO2 ABG pO2 ABG HCO3 ABG O2 Saturation ABG Base Excess Star Test Oxygen Given Sodium 140 Potassium 3.1 L Chloride 96 L Carbon Dioxide 39 H Anion Gap 5 BUN 11 Creatinine 0.56 L Est Cr Clr Drug Dosing 89.9 eGFR 99.97 BUN/Creatinine Ratio 19.6 Glucose 65 L POC Glucose 84 88 Calcium 8.0 L Magnesium 2.0 Total Bilirubin AST ALT Alkaline Phosphatase Total Protein Albumin Globulin Albumin/Globulin Ratio Diagnostic Findings Microbiology 08/05/24 11:15 Foot,Right Gram Stain - Final 08/05/24 11:15 Foot,Right Aerobic and Anaerobic Culture - Preliminary Low counts mixed probable skin microbiota. 07/31/24 17:56 Ankle Gram Stain - Final 07/31/24 17:56 Ankle Aerobic and Anaerobic Culture - Final Kerstersia gyiorum Pseudomonas aeruginosa Alcaligenes faecalis 07/31/24 18:48 Blood Aerobic Blood Culture - Final No growth in Aerobic bottle after 5 days. 07/31/24 18:48 Blood Anaerobic Blood Culture - Final No growth in Anaerobic bottle after 5 days. 07/31/24 17:15 Blood Aerobic Blood Culture - Final No growth in Aerobic bottle after 5 days. 07/31/24 17:15 Blood Anaerobic Blood Culture - Final No growth in Anaerobic bottle after 5 days. Medications Administered Home Medications Medication Instructions Recorded Confirmed Last Taken methimazole 10 mg tablet 10 mg PO QAM 07/20/22 07/31/24 07/31/24 sitagliptin phosphate 100 mg 100 mg PO QDB 07/20/22 07/31/24 07/31/24 tablet (Januvia) metoprolol succinate 25 mg 25 mg PO BID #60 tabs 09/04/22 07/31/24 07/31/24 tablet,extended release 24 hr AM amiodarone 200 mg tablet 200 mg PO QAM 07/31/24 07/31/24 07/31/24 apixaban 5 mg tablet (Eliquis) 5 mg PO QAM 07/31/24 07/31/24 07/31/24 AM aspirin 81 mg tablet,delayed 81 mg PO QAM 07/31/24 07/31/24 07/31/24 release furosemide 40 mg tablet 40 mg PO BID 07/31/24 07/31/24 07/31/24 oxycodone 10 mg tablet 10 mg PO Q4 PRN Pain 07/31/24 07/31/24 Unknown pantoprazole 40 mg tablet,delayed 40 mg PO QAM 07/31/24 07/31/24 07/31/24 release potassium chloride 20 mEq 20 meq PO QAM 07/31/24 07/31/24 Unknown tablet,extended release(part/cryst) (Klor-Con M) sertraline 50 mg tablet (Zoloft) 50 mg PO DAILY PRN USES FOR ANXIETY 07/31/24 07/31/24 Unknown tiotropium bromide 1.25 2 puff inhalation DAILY PRN 07/31/24 07/31/24 Unknown mcg/actuation mist for inhalation Shortness Of Breath (Spiriva Respimat) Active Medications Generic Name Dose Route Start Last Admin Trade Name Freq PRN Reason Stop Dose Admin Acetaminophen 650 mg 07/31/24 23:18 08/06/24 04:26 Acetaminophen 325 Mg Tab PO 08/30/24 23:17 650 mg Q4H PRN Administration Pain or Fever Acetaminophen 1,000 mg 08/06/24 22:00 08/09/24 15:00 Acetaminophen 500 Mg Tab PO 09/05/24 21:59 Not Given Q8H ELIAN Amiodarone HCl 100 mg 08/04/24 12:00 08/09/24 08:36 Amiodarone 200 Mg Tab PO 09/03/24 11:59 100 mg QAM ELIAN Administration Apixaban 5 mg 08/01/24 09:00 08/09/24 08:36 Apixaban 5 Mg Tablet PO 08/31/24 08:59 5 mg BID ELIAN Administration Aspirin 81 mg 08/01/24 09:00 08/09/24 08:36 Aspirin 81 Mg Ectab PO 08/31/24 08:59 81 mg QAM ELIAN Administration Atorvastatin Calcium 80 mg 08/02/24 09:00 08/09/24 08:35 Atorvastatin 40 Mg Tab PO 09/01/24 08:59 80 mg QAM ELIAN Administration Calcium/Vitamin D 1 tab 08/03/24 09:00 08/09/24 08:36 Calcium 600mg + Vit D 400 Iu Tab PO 09/02/24 08:59 1 tab BID ELIAN Administration Clopidogrel Bisulfate 75 mg 08/07/24 09:00 08/09/24 08:36 Clopidogrel Bisulfate 75 Mg Tab PO 09/06/24 08:59 75 mg QAM ELIAN Administration Dextrose 25 - 50 ml 07/31/24 23:18 08/05/24 09:26 Dextrose 50% 50 Ml Syringe IV 08/30/24 23:17 25 ml UD PRN Administration Hypoglycemia Protocol Protocol Furosemide 40 mg 08/07/24 08:00 08/09/24 08:39 Furosemide 40 Mg/4 Ml Vial IV 09/06/24 07:59 40 mg BID17 ELIAN Administration Sodium Chloride 500 mls @ 0 mls/hr 08/05/24 09:30 08/08/24 16:25 Nss IV 09/04/24 09:29 Infused .Q0M ELIAN Infusion KVO Piperacillin Sod/Tazobactam Sod 4.5 gm in 100 mls @ 25 mls/hr 08/08/24 16:00 08/09/24 15:42 Zosyn IV 09/19/24 15:59 25 mls/hr Q8H ELIAN Administration Protocol Melatonin 3 mg 08/06/24 22:04 08/08/24 20:58 Melatonin 3 Mg Tab PO 09/05/24 22:03 3 mg HS PRN Administration Sleep Ondansetron HCl 4 mg 08/01/24 18:20 08/09/24 15:41 Ondansetron Inj 2 Mg/Ml 2 Ml Vial IV 08/31/24 18:19 4 mg Q4H PRN Administration Nausea Oxycodone HCl 10 mg 08/02/24 11:16 08/09/24 14:59 Oxycodone Hcl Ir 5 Mg Tab (Immediate Release) PO 08/15/24 13:56 10 mg Q4H PRN Administration Pain Pantoprazole Sodium 40 mg 08/01/24 09:00 08/09/24 08:35 Pantoprazole 40 Mg Tab PO 08/31/24 08:59 40 mg QAM ELIAN Administration Potassium Chloride 40 meq 08/09/24 09:00 08/09/24 08:39 Potassium Chloride Crtab 20 Meq Tabcr PO 09/08/24 08:59 40 meq QAM ELIAN Administration Sertraline HCl 50 mg 08/02/24 09:00 08/09/24 08:36 Sertraline Hcl 50 Mg Tablet PO 09/01/24 08:59 50 mg DAILY ELIAN Administration Spironolactone 50 mg 08/06/24 09:00 08/09/24 08:37 Spironolactone 25 Mg Tab PO 09/05/24 08:59 50 mg QAM ELIAN Administration Umeclidinium [place] 1 puffs 08/02/24 09:00 08/09/24 08:36 Umeclidinium [place] 62.5mcg/Blister 7 Puffs/Inhaler INH 09/01/24 08:59 1 puffs DAILY ELIAN Administration Protocol
--- NOTE | 2024-08-09 17:24 | Electrocardiogram Report ---
Test Reason : Blood Pressure : */* mmHG Vent. Rate : 120 BPM Atrial Rate : 138 BPM P-R Int : * ms QRS Dur : 114 ms QT Int : 284 ms P-R-T Axes : * 132 219 degrees QTcB Int : 401 ms Atrial fibrillation with rapid ventricular response Right axis deviation Marked ST abnormality, possible inferior subendocardial injury Abnormal ECG When compared with ECG of 04-Aug-2024 11:47, Atrial fibrillation has replaced Ectopic atrial rhythm Vent. rate has increased by 61 bpm QRS duration has increased Confirmed by Jean-Claude Riley ([id number] on 08/09/2024 5:23:46 PM Referred By: REFERRED SELF Confirmed By: Jean-Claude Riley
--- NOTE | 2024-08-09 19:49 | Hospitalist Progress Note ---
Date of Service August 09, 2024 Assessment & Plan (1) Diabetic foot infection: Plan: Bilateral foot ulcers with necrosis, osteomyelitis of dorsal right foot wound wound debridement 08/05 and angiogram 08/06 with stents - Mild leukocytosis secondary to recent procedures - afebrile, VSS, blood cultures negative - no signs of systemic infection at this time - Continue IV Tylenol, home oxycodone, and prn morphine - see hypercapnia below; to only use morphine when Tylenol and oxycodone do not relieve pain - Wound cultures showed pseudomonas aeruginosa, Kerstersia gyiorum, and Alcaligenes faecalis - continue Zosyn, ID following as will need prolonged course IV abx - surgical cultures pending; Talus bone pathology pending - Wound care consulted; see images in chart - wound vac to right foot wound 08/06 - Podiatry following - Given no improvement and worsening of right lower extremity despite wound vac, appears patient will require right BKA (2) Acute on chronic heart failure with preserved ejection fraction (HFpEF): Plan: With anasarca, ascites, and pulm edema; noncompliant on home diuretic - Last echocardiogram 08/01/24 showed EF 60 to 65%, no motion wall abnormalities, right ventricle mildly dilated, severe pulmonary hypertension, worsening tricuspid regurg - BNP 1480 on admission - Strict I&O monitoring and daily weights - cardiology following - referral to CHF clinic made Hypokalemia; improving - potassium repletion throughout hospital stay; patient with resistance to taking PO K+ - spironolactone increased to 50 mg 08/06 - potassium 40 meq once daily Hypomagnesia - repletion throughout hospital course - With likely contraction alkalosis from intravascular volume depletion, hypoalbuminemia, do not want to further increase Lasix, but rather will give one dose Diamox 250mg IV, follow BMP -continue Boost shakes for improved nutrition - Daily BMP; Mg in AM (3) Acute hypoxemic respiratory failure: Plan: Due to underlying CHF - patient not on oxygen at home - Wean off O2 as tolerated; currently on 2L nasal cannula - elevated pO2 on ABG - nurse attempted to lower flow rate but dropped O2 in mid 80s CO2 retention ; secondary to sedation overdose vs contraction alkalosis with diuresis, possibly component of hypothyroidism - CO2 43 on BMP 08/08; has been increasingly elevated - ABG on 08/08 7.47/56/112 on 2 L O2 which likely reflects her known chronic respiratory acidosis with compensatory metabolic alkalosis compensation along with acute contraction alkalosis -At risk for CO2 retention due to COPD-caution with opioids-morphine may be making her nauseated-switch to Dilaudid and watch for CO2 retention - recommend nocturnal pulse ox at rehab facility and formal out patient sleep study - will likely improve with pain medication adjustment and further diuresis (4) Peripheral arterial disease: Plan: PAD with CAD bilateral LE angiogram 08/06 with stent to RT External iliac and angioplasty with VIOLET to RT SFA - continue daily baby aspirin, high intensity statin; Plavix x 1 month (until 09/07) - consulted Dr. Tolbert for vascular management - repeat noninvasive vascular testing in 2 weeks - plan for LT SFA intervention as outpatient (5) Persistent atrial fibrillation: Plan: Chronic history of tachybradycardia syndrome and paroxysmal atrial fibrillation on Eliquis - Cardiology following - will need outpatient follow-up with electrophysiology to discuss pacemaker for tachybradycardia syndrome - not a candidate for pacemaker at this time given wounds - sinus bradycardia on admission -> converted to a fib with RVR (HR up to 180) 08/04 -> back into sinus bradycardia 0937 08/04 - thyroid panel showing hypothyroidism; possibly secondary to amiodarone use vs overmedication with methimazole - Continue Eliquis - discontinued metoprolol on admission - discussed with cardiology, restarted patient on 100 mg amiodarone (200 mg at home - lowered dose due to bradycardia) - monitor thyroid function and transaminase levels while on amiodarone (repeat labs 08/15) (6) Nausea & vomiting: Plan: nausea every morning due to taking medications on empty stomach and may be due to morphine use? - CT of abd/pelv on admission showed no acute concerns, ascites - encourage food intake in AM (7) Diabetes mellitus type 2 in obese: Plan: history of type 2 diabetes with diabetic foot ulcers - Diabetic diet - Hold home Januvia - A1c 5.7 - NovoLog discontinued 08/03 as patient needing minimal insulin and hypoglycemic at times - glucose stable (8) Hyperthyroidism: Plan: - She takes methimazole and amiodarone chronically - Thyroid function on admission showing hypothyroidism; TSH 9.3, T3 1.83 - continue to hold methimazole - resumed amiodarone at lower dose - follow TSH in 2 weeks (repeat 08/15) (9) Anemia: Plan: appears to be chronic - Hypochromic microcytic anemia - Iron panel and ferritin level confirm iron deficiency anemia - iron supplement started 08/03 but with constipation and nausea, discontinued 08/05 - IV Venofer given 08/08 Plan Pressure ulcers of right and left buttock, stage 3 - wound care following Chronic stable diagnoses: Depression continue sertraline Hypocalcemia - continue vitamin D and calcium supplement HTN - discontinued metoprolol, Will continue with IV Lasix VTE ppx: Eliquis Diet: heart healthy, diabetes, fluid restricted diet Code status: full Dispo: PCU/telemetry; awaiting surgical cultures, possible amputation, will need inpt rehab Admission and Anticipated Discharge Date Admission Date: July 31, 2024 Subjective Patient reports no new symptoms. Review of Systems Review of Systems: All systems reviewed & are unremarkable except as noted in HPI & below Physical Exam Physical Exam: The patient is alert and oriented 3, well developed and well nourished, normocephalic and atraumatic, in no acute distress. Non-toxic appearing. HEENT- EOMI, mucous membranes moist. Hearing grossly intact. chest: not using accessory muscles to breath. Extremities- no clubbing, cyanosis. +1 lower extremity edema. Left foot with surgical dressings. Wound vac to right dorsal foot. Rheumatologic- decreased range of motion due to pain. Psychiatric- normal affect. Results & Data Results & Data Vital Signs (Past 12 Hours) Vital Signs Temp Pulse Resp BP Pulse Ox O2 Del Method O2 Flow Rate 08/09/24 16:09 36.6 C 80 20 129/70 93 Nasal Cannula 2 08/09/24 11:30 36.6 C 79 18 115/69 96 Nasal Cannula 2 08/09/24 08:00 36.7 C 60 16 109/74 95 Nasal Cannula 2 PG Care Time/CCT Total # of Minutes Spent Total Time Spent with Patient: Total time spent is greater than 50% in coordination of care (as documented) at patient's floor/unit and/or counseling patient: Coding Level of Care Code 65746 SUB INP/OBS CARE 2/35MIN Diagnoses Diabetic foot infection E11.628; L08.9 Acute on chronic heart failure with preserved ejection fraction (HFpEF) I50.33 Acute hypoxemic respiratory failure J96.01 Peripheral arterial disease I73.9 Persistent atrial fibrillation I48.19 Nausea & vomiting R11.2 Diabetes mellitus type 2 in obese E11.69; E66.9 Hyperthyroidism E05.90 Anemia D64.9
[2024-08-10 08:45] LABS: Basophils # (auto) 0.09 K/uL (0.00-0.20); Basophils % (auto) 0.9 %; Eosinophils # (auto) 0.21 K/uL (0.00-0.50); Eosinophils % (auto) 2.1 %; Hemoglobin 11.1 g/dl (12.0-16.0); Immature Granulocytes # (auto) 0.05 K/uL (0.01-0.20); Immature Granulocytes % (auto) 0.5 %; Lymphocytes # (auto) 0.66 K/uL (1.20-3.40); Lymphocytes % (auto) 6.7 %; Mean Corpuscular Hemoglobin 25.7 pg (25.0-34.0); Mean Corpuscular Volume 85.6 fL (80.0-100.0); Mean Platelet Volume 10.1 fL (9.4-12.4); Monocytes % (auto) 5.1 %; Neutrophils # (auto) 8.31 K/uL (1.40-6.50); Neutrophils % (auto) 84.7 %; Platelet Count 332 K/uL (130-400); RDW Standard Deviation 62.3 fL (36.4-46.3); Red Blood Count 4.32 M/uL (4.20-5.40); White Blood Count 9.82 K/ul (4.8-10.8)
[2024-08-10 09:03] LABS: BUN Creatinine Ratio 19.7 (10-20); Calcium 8.3 mg/dl (8.6-10.3); Creatinine Clr Calc Pharmacy 85.6 ml/min; Potassium 3.3 mmol/L (3.5-5.1)
--- NOTE | 2024-08-10 16:42 | Cardiology Progress Note ---
Date of Service August 10, 2024 Assessment & Plan (1) Acute on chronic heart failure with preserved ejection fraction (HFpEF): (2) Bradycardia: (3) CAD (coronary artery disease): (4) Paroxysmal atrial fibrillation: (5) Pulmonary hypertension: (6) Tricuspid regurgitation: (7) Anticoagulant long-term use: (8) Hypertension: (9) Dyslipidemia: Plan ASSESSMENT/PLAN: 1. Acute on chronic heart failure with preserved EF: Still markedly hypervolemic. Mostly the edema is likely due t her significant hypoalbuminemia. She is not affecting much of a diuresis which would suggest an element of intravascular depletion. 2. Bradycardia: Mild. No overt symptoms. 3. CAD: Medical therapy was recommended for mostly nonobstructive CAD. High intensity statin therapy. On Eliquis. 4. Paroxysmal atrial fibrillation: She is continuing on Eliquis and low-dose amiodarone. She does have tachybradycardia syndrome. Will wait for an opportunity to consider implantation of a pacemaker. Primary contraindications or active infections. 5. Anticoagulation: Continue Eliquis 5 mg twice daily 6. Tricuspid regurgitation: May improve with diuresis. 7. Pulmonary hypertension: Likely related to her hypervolemic state. Continue attempts at diuresis. 8. Dyslipidemia: Continue statin therapy 9. Hypotension: Has a history of hypertension but has been mildly hypotensive here at times. Stable recently. 10. Lower extremity wounds/osteomyelitis: Revascularized. Infectious disease and podiatry following. Admission and Anticipated Discharge Date Admission Date: July 31, 2024 Subjective This morning patient complained of some right foot pain. She notes cramping and breathing trouble. No chest or back pain. No sense of palpitation. She has not been ambulatory. Review of Systems Review of Systems: Per HPI Physical Exam Physical Exam: Gen.: Alert. Answered all questions appropriately. HEENT: Anicteric sclera. Cardiac: Regular. Bradycardic in the 50s. Normal S1-S2. No murmur appreciated Pulmonary: Normal respiratory effort. Abdomen: Fairly tense in the lower portions. Notable anasarca. Extremities: Dressings on both lower extremities. Tense ascites bilaterally. Results & Data Vital Signs (Past 12 Hours) Vital Signs Temp Pulse Pulse Resp BP Pulse Ox O2 Del Method 08/10/24 15:22 36.6 C 51 L 20 100/57 L 91 Nasal Cannula 08/10/24 11:27 36.3 C L 48 L 18 126/70 95 Nasal Cannula 08/10/24 08:00 44 L 08/10/24 07:35 36.3 C L 56 L 20 109/46 L 97 Nasal Cannula O2 Flow Rate 08/10/24 15:22 3 08/10/24 11:27 08/10/24 08:00 08/10/24 07:35 3 Laboratory Results Abnormal Lab Results 08/10/24 08/10/24 08/10/24 08:21 11:30 16:16 WBC 9.82 RBC 4.32 Hgb 11.1 L Hct 37.0 MCV 85.6 MCH 25.7 MCHC 30.0 L RDW Std Deviation 62.3 H RDW Coeff of Rasheed 20.0 H Plt Count 332 MPV 10.1 Immature Gran % (Auto) 0.5 Neut % (Auto) 84.7 Lymph % (Auto) 6.7 [place] % (Auto) 5.1 Eos % (Auto) 2.1 Baso % (Auto) 0.9 Neut # (Auto) 8.31 H Lymph # (Auto) 0.66 L [place] # (Auto) 0.50 Eos # (Auto) 0.21 Baso # (Auto) 0.09 Immature Gran # (Auto) 0.05 Sodium 137 Potassium 3.3 L Chloride 95 L Carbon Dioxide 37 H Anion Gap 5 BUN 12 Creatinine 0.61 Est Cr Clr Drug Dosing 85.6 eGFR 97.93 BUN/Creatinine Ratio 19.7 Glucose 63 L POC Glucose 75 78 Calcium 8.3 L PG Care Time/CCT Total # of Minutes Spent Total Time Spent with Patient: Total time spent is greater than 50% in coordination of care (as documented) at patient's floor/unit and/or counseling patient: Coding Level of Care Code 06065 SUB INP/OBS CARE 2/35MIN Diagnoses Acute on chronic heart failure with preserved ejection fraction (HFpEF) I50.33 Bradycardia R00.1 CAD (coronary artery disease) I25.10 Paroxysmal atrial fibrillation I48.0 Pulmonary hypertension I27.20 Tricuspid regurgitation I07.1 Anticoagulant long-term use Z79.01 Hypertension I10 Dyslipidemia E78.5
--- NOTE | 2024-08-10 17:01 | Infectious Disease Progress Nt ---
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 On admission, she was afebrile, requiring up to 6L NC (now weaned down). Initial labs with WBC wnl, Cr 0.86. LFTs unremarkable. UA with 0-5 WBC. CTAP with anasarca and moderate to large ascites, which may reflect volume overload with a right pleural effusion. Right ankle XR with soft tissue swelling, no e/o bony abnormality. CXR with CM and pulmonary edema. Chest CTA neg for PE, +emphysema with possible airspace opacifications in RUL, may represent PNA with reactive LNs, small right pleural effusion with underlying atelectasis. LE arterial duplex with PVD. TTE with mild MR, moderate-severe TR, severe pulmonary HTN, technically difficult. She was admitted with bl lower ext remity cellulitis, bradycardia, anasarca, and acute on chronic CHF. She was seen by vascular surgery and podiatry. S/p OR 08/05 and underwent bl excisional debridement of ulcers, right foot bone biopsy (per op note, extensive damage noted of RLE ulcerations, anterior ankle ulcer with deep probing noted to deep fascia, dorsal foot ulcer immediately extended to talus and dorsal midfoot bones bone bx taken of talus; plantar calcaneal ulceration extended to level of posterior and plantar calcaneus, lateral wound extended to fifth MT styloid process; left foot ulcerations more shallow extending to subcu tissue). She was started on vancomycin and zosyn. ID consulted 08/05. S/p bl lower extremity angioplasty 08/06 (per op note, had lithotripsy and stenting of right external iliac artery, LISBETH of right mid SFA). Since PVD has been addressed, PO options for abx can be considered. Given probe to bone, OM is a concern. Bone biopsy + OM and OR cultures NG while on zosyn. She has wound cultures which are from 07/31 and likely superficial cultures, and therefore not often helpful. No MRSA coverage needed since this did not grow. Since no growth in OR bone cx while on zosyn , will continue. Microbiology Blood cultures 07/31 NG Wound culture 07/31/2024 Pseudomonas aeruginosa ( Rodrigues S) , Alcaligenes Feacalis ( R to Bactrim), kertersia gyiorum ( no sensi) Talus bone cx 08/05 low mixed probable skin faith. No sensi Antibiotics pip tazo 07/31-ongoing vanco 07/31-08/02 PATHOLOGY FINAL DIAGNOSIS Bone, right foot talus, excision: - Osteonecrotic bone and acute inflammation consistent with osteomyelitis # Osteomyelitis of R foot (extension of ulcers to bone) # Bilateral LE cellulitis with ulcers s/p debridement 08/05 # WCX with Pseudomonas, alcaligenes faecalis, kertersia # Peripheral vascular disease s/p angioplasty # Acute CHF # h/o T2DM OR cx sterile while on zosyn. Path c/w osteo Recommendations -Continue pip-tazo 4.5g IV q8h (extended infusion) while inpatient. Anticipate 6 weeks post OR ( 08/05/24-09/16/24 ) On discharge change to either pip-tazo 4.5 g IV q6h (bolus dosing) or pip-tazo 18 g IV daily continuous infusion, depending on patient preference and insurance/home infusion options. - Weekly lab monitoring while on IV antibiotics: CBC w/ diff, CMP, ESR, CRP - Ensure close follow-up with podiatry - Ensure close follow-up with primary care ID will sign off. Please call with questions. Camron Norman MD, MPH Infectious Disease [facility], ID Division Call [phone] with questions Admission and Anticipated Discharge Date Admission Date: July 31, 2024 Subjective This patient recommendation is based on a telemedicine consult request which was completed asynchronously through chart review and information provided by the primary physician. The patient was not seen or examined today. The evaluation is consultative in nature and all patient care and treatment decisions can either be accepted or rejected by the patient's primary hospital-based treating physician using their own independent medical judgment for their patient. Time Spent Reviewing Chart: 21 - 30 minutes OR cx with no growth on zosyn Bone path + for OM WBC 9.8, cr 0.61 Results & Data Vital Signs (Past 12 Hours) Vital Signs Temp Pulse Pulse Resp BP Pulse Ox O2 Del Method 08/10/24 15:22 36.6 C 51 L 20 100/57 L 91 Nasal Cannula 08/10/24 11:27 36.3 C L 48 L 18 126/70 95 Nasal Cannula 08/10/24 08:00 44 L 08/10/24 07:35 36.3 C L 56 L 20 109/46 L 97 Nasal Cannula O2 Flow Rate 08/10/24 15:22 3 08/10/24 11:27 08/10/24 08:00 08/10/24 07:35 3 Laboratory Results Laboratory Results - last 48 hr 08/08/24 08/09/24 08/09/24 20:08 05:30 07:28 WBC 11.09 H RBC 3.98 L Hgb 10.1 L Hct 32.7 L MCV 82.2 MCH 25.4 MCHC 30.9 L RDW Std Deviation 59.5 H RDW Coeff of Rasheed 19.5 H Plt Count 287 MPV 10.6 Immature Gran % (Auto) Neut % (Auto) Lymph % (Auto) [place] % (Auto) Eos % (Auto) Baso % (Auto) Neut # (Auto) Lymph # (Auto) [place] # (Auto) Eos # (Auto) Baso # (Auto) Immature Gran # (Auto) Sodium 140 Potassium 3.1 L Chloride 96 L Carbon Dioxide 39 H Anion Gap 5 BUN 11 Creatinine 0.56 L Est Cr Clr Drug Dosing 89.9 eGFR 99.97 BUN/Creatinine Ratio 19.6 Glucose 65 L POC Glucose 128 H 84 Calcium 8.0 L Magnesium 2.0 08/09/24 08/09/24 08/10/24 11:15 16:23 08:21 WBC 9.82 RBC 4.32 Hgb 11.1 L Hct 37.0 MCV 85.6 MCH 25.7 MCHC 30.0 L RDW Std Deviation 62.3 H RDW Coeff of Rasheed 20.0 H Plt Count 332 MPV 10.1 Immature Gran % (Auto) 0.5 Neut % (Auto) 84.7 Lymph % (Auto) 6.7 [place] % (Auto) 5.1 Eos % (Auto) 2.1 Baso % (Auto) 0.9 Neut # (Auto) 8.31 H Lymph # (Auto) 0.66 L [place] # (Auto) 0.50 Eos # (Auto) 0.21 Baso # (Auto) 0.09 Immature Gran # (Auto) 0.05 Sodium 137 Potassium 3.3 L Chloride 95 L Carbon Dioxide 37 H Anion Gap 5 BUN 12 Creatinine 0.61 Est Cr Clr Drug Dosing 85.6 eGFR 97.93 BUN/Creatinine Ratio 19.7 Glucose 63 L POC Glucose 88 131 H Calcium 8.3 L Magnesium 08/10/24 08/10/24 11:30 16:16 WBC RBC Hgb Hct MCV MCH MCHC RDW Std Deviation RDW Coeff of Rasheed Plt Count MPV Immature Gran % (Auto) Neut % (Auto) Lymph % (Auto) [place] % (Auto) Eos % (Auto) Baso % (Auto) Neut # (Auto) Lymph # (Auto) [place] # (Auto) Eos # (Auto) Baso # (Auto) Immature Gran # (Auto) Sodium Potassium Chloride Carbon Dioxide Anion Gap BUN Creatinine Est Cr Clr Drug Dosing eGFR BUN/Creatinine Ratio Glucose POC Glucose 75 78 Calcium Magnesium Diagnostic Findings Microbiology 08/05/24 11:15 Foot,Right Gram Stain - Final 08/05/24 11:15 Foot,Right Aerobic and Anaerobic Culture - Final Low counts mixed probable skin microbiota. No further identifications or sensitivities to follow. 07/31/24 17:56 Ankle Gram Stain - Final 07/31/24 17:56 Ankle Aerobic and Anaerobic Culture - Final Kerstersia gyiorum Pseudomonas aeruginosa Alcaligenes faecalis 07/31/24 18:48 Blood Aerobic Blood Culture - Final No growth in Aerobic bottle after 5 days. 07/31/24 18:48 Blood Anaerobic Blood Culture - Final No growth in Anaerobic bottle after 5 days. 07/31/24 17:15 Blood Aerobic Blood Culture - Final No growth in Aerobic bottle after 5 days. 07/31/24 17:15 Blood Anaerobic Blood Culture - Final No growth in Anaerobic bottle after 5 days. Medications Administered Home Medications Medication Instructions Recorded Confirmed Last Taken methimazole 10 mg tablet 10 mg PO QAM 1007/31/24 07/31/24 sitagliptin phosphate 100 mg 100 mg PO QDB 07/20/22 07/31/24 07/31/24 tablet (Januvia) metoprolol succinate 25 mg 25 mg PO BID #60 tabs 09/04/22 07/31/24 07/31/24 tablet,extended release 24 hr AM amiodarone 200 mg tablet 200 mg PO QAM 07/31/24 07/31/24 07/31/24 apixaban 5 mg tablet (Eliquis) 5 mg PO QAM 07/31/24 07/31/24 07/31/24 AM aspirin 81 mg tablet,delayed 81 mg PO QAM 07/31/24 07/31/24 07/31/24 release furosemide 40 mg tablet 40 mg PO BID 07/31/24 07/31/24 07/31/24 oxycodone 10 mg tablet 10 mg PO Q4 PRN Pain 07/31/24 07/31/24 Unknown pantoprazole 40 mg tablet,delayed 40 mg PO QAM 07/31/24 07/31/24 07/31/24 release potassium chloride 20 mEq 20 meq PO QAM 07/31/24 07/31/24 Unknown tablet,extended release(part/cryst) (Klor-Con M) sertraline 50 mg tablet (Zoloft) 50 mg PO DAILY PRN USES FOR ANXIETY 07/31/24 07/31/24 Unknown tiotropium bromide 1.25 2 puff inhalation DAILY PRN 07/31/24 07/31/24 Unknown mcg/actuation mist for inhalation Shortness Of Breath (Spiriva Respimat) Active Medications Generic Name Dose Route Start Last Admin Trade Name Freq PRN Reason Stop Dose Admin Acetaminophen 650 mg 07/31/24 23:18 08/06/24 04:26 Acetaminophen 325 Mg Tab PO 08/30/24 23:17 650 mg Q4H PRN Administration Pain or Fever Acetaminophen 1,000 mg 08/06/24 22:00 08/10/24 13:26 Acetaminophen 500 Mg Tab PO 09/05/24 21:59 Not Given Q8H ELIAN Amiodarone HCl 100 mg 08/04/24 12:00 08/10/24 09:36 Amiodarone 200 Mg Tab PO 09/03/24 11:59 Not Given QAM ELIAN Apixaban 5 mg 08/01/24 09:00 08/10/24 09:36 Apixaban 5 Mg Tablet PO 08/31/24 08:59 Not Given BID ELIAN Aspirin 81 mg 08/01/24 09:00 08/10/24 09:37 Aspirin 81 Mg Ectab PO 08/31/24 08:59 Not Given QAM [facility] Atorvastatin Calcium 80 mg 08/02/24 09:00 08/10/24 09:37 Atorvastatin 40 Mg Tab PO 09/01/24 08:59 Not Given QAM [facility] Calcium/Vitamin D 1 tab 08/03/24 09:00 08/10/24 09:37 Calcium 600mg + Vit D 400 Iu Tab PO 09/02/24 08:59 Not Given BID [facility] Clopidogrel Bisulfate 75 mg 08/07/24 09:00 08/10/24 09:37 Clopidogrel Bisulfate 75 Mg Tab PO 09/06/24 08:59 Not Given QAM [facility] Dextrose 25 - 50 ml 07/31/24 23:18 08/05/24 09:26 Dextrose 50% 50 Ml Syringe IV 08/30/24 23:17 25 ml UD PRN Administration Hypoglycemia Protocol Protocol Furosemide 40 mg 08/07/24 08:00 08/10/24 09:37 Furosemide 40 Mg/4 Ml Vial IV 09/06/24 07:59 Not Given BID17 [facility] Sodium Chloride 500 mls @ 0 mls/hr 08/05/24 09:30 08/08/24 16:25 Nss IV 09/04/24 09:29 Infused .Q0M [facility] Infusion KVO Piperacillin Sod/Tazobactam Sod 4.5 gm in 100 mls @ 25 mls/hr 08/08/24 16:00 08/10/24 11:53 Zosyn IV 09/19/24 15:59 Infused Q8H [facility] Infusion Protocol Melatonin 3 mg 08/06/24 22:04 08/09/24 21:39 Melatonin 3 Mg Tab PO 09/05/24 22:03 3 mg HS PRN Administration Sleep Ondansetron HCl 4 mg 08/01/24 18:20 08/10/24 13:26 Ondansetron Inj 2 Mg/Ml 2 Ml Vial IV 08/31/24 18:19 4 mg Q4H PRN Administration Nausea Oxycodone HCl 10 mg 08/02/24 11:16 08/10/24 13:26 Oxycodone Hcl Ir 5 Mg Tab (Immediate Release) PO 08/15/24 13:56 10 mg Q4H PRN Administration Pain Pantoprazole Sodium 40 mg 08/01/24 09:00 08/10/24 09:37 Pantoprazole 40 Mg Tab PO 08/31/24 08:59 Not Given QAM ELIAN Potassium Chloride 40 meq 08/09/24 09:00 08/10/24 09:37 Potassium Chloride Crtab 20 Meq Tabcr PO 09/08/24 08:59 Not Given QAM ELIAN Sertraline HCl 50 mg 08/02/24 09:00 08/10/24 09:37 Sertraline Hcl 50 Mg Tablet PO 09/01/24 08:59 Not Given DAILY ELIAN Spironolactone 50 mg 08/06/24 09:00 08/10/24 09:37 Spironolactone 25 Mg Tab PO 09/05/24 08:59 Not Given QAM ELIAN Umeclidinium [place] 1 puffs 08/02/24 09:00 08/10/24 09:37 Umeclidinium [place] 62.5mcg/Blister 7 Puffs/Inhaler INH 09/01/24 08:59 Not Given DAILY ELIAN Protocol
--- NOTE | 2024-08-10 17:22 | Hospitalist Progress Note ---
Date of Service August 10, 2024 Assessment & Plan (1) Diabetic foot infection: Plan: Bilateral foot ulcers with necrosis, osteomyelitis of dorsal right foot wound wound debridement 08/05 and angiogram 08/06 with stents - Mild leukocytosis secondary to recent procedures - afebrile, VSS, blood cultures negative - no signs of systemic infection at this time - Continue IV Tylenol, home oxycodone, and prn morphine - see hypercapnia below; to only use morphine when Tylenol and oxycodone do not relieve pain - Wound cultures showed pseudomonas aeruginosa, Kerstersia gyiorum, and Alcaligenes faecalis - continue Zosyn, ID following as will need prolonged course IV abx - surgical cultures pending; Talus bone pathology pending - Wound care consulted; see images in chart - wound vac to right foot wound 08/06 - Podiatry following - Given no improvement and worsening of right lower extremity despite wound vac, appears patient will require right BKA 3.1% Risk of myocardial infarction or cardiac arrest, intraoperatively or up to 30 days post-op (2) Acute on chronic heart failure with preserved ejection fraction (HFpEF): Plan: With anasarca, ascites, and pulm edema; noncompliant on home diuretic - Last echocardiogram 08/01/24 showed EF 60 to 65%, no motion wall abnormalities, right ventricle mildly dilated, severe pulmonary hypertension, worsening tricuspid regurg - BNP 1480 on admission - Strict I&O monitoring and daily weights - cardiology following - referral to CHF clinic made Hypokalemia; improving - potassium repletion throughout hospital stay; patient with resistance to taking PO K+ - spironolactone increased to 50 mg 08/06 - potassium 40 meq once daily Hypomagnesia - repletion throughout hospital course - With likely contraction alkalosis from intravascular volume depletion, hypoalbuminemia, do not want to further increase Lasix, but rather will give one dose Diamox 250mg IV, follow BMP -continue Boost shakes for improved nutrition - Daily BMP; Mg in AM (3) Acute hypoxemic respiratory failure: Plan: Due to underlying CHF - patient not on oxygen at home - Wean off O2 as tolerated; currently on 2L nasal cannula - elevated pO2 on ABG - nurse attempted to lower flow rate but dropped O2 in mid 80s CO2 retention ; secondary to sedation overdose vs contraction alkalosis with diuresis, possibly component of hypothyroidism - CO2 43 on BMP 08/08; has been increasingly elevated - ABG on 08/08 7.47/56/112 on 2 L O2 which likely reflects her known chronic respiratory acidosis with compensatory metabolic alkalosis compensation along with acute contraction alkalosis -At risk for CO2 retention due to COPD-caution with opioids-morphine may be making her nauseated-switch to Dilaudid and watch for CO2 retention - recommend nocturnal pulse ox at rehab facility and formal out patient sleep study - will likely improve with pain medication adjustment and further diuresis (4) Peripheral arterial disease: Plan: PAD with CAD bilateral LE angiogram 08/06 with stent to RT External iliac and angioplasty with VIOLET to RT SFA - continue daily baby aspirin, high intensity statin; Plavix x 1 month (until 09/07) - consulted Dr. Tolbert for vascular management - repeat noninvasive vascular testing in 2 weeks - plan for LT SFA intervention as outpatient (5) Persistent atrial fibrillation: Plan: Chronic history of tachybradycardia syndrome and paroxysmal atrial fibrillation on Eliquis - Cardiology following - will need outpatient follow-up with electrophysiology to discuss pacemaker for tachybradycardia syndrome - not a candidate for pacemaker at this time given wounds - sinus bradycardia on admission -> converted to a fib with RVR (HR up to 180) 08/04 -> back into sinus bradycardia 0937 08/04 - thyroid panel showing hypothyroidism; possibly secondary to amiodarone use vs overmedication with methimazole - Continue Eliquis - discontinued metoprolol on admission - discussed with cardiology, restarted patient on 100 mg amiodarone (200 mg at home - lowered dose due to bradycardia) - monitor thyroid function and transaminase levels while on amiodarone (repeat labs 08/15) (6) Nausea & vomiting: Plan: nausea every morning due to taking medications on empty stomach and may be due to morphine use? - CT of abd/pelv on admission showed no acute concerns, ascites - encourage food intake in AM (7) Diabetes mellitus type 2 in obese: Plan: history of type 2 diabetes with diabetic foot ulcers - Diabetic diet - Hold home Januvia - A1c 5.7 - NovoLog discontinued 08/03 as patient needing minimal insulin and hypoglycemic at times - glucose stable (8) Hyperthyroidism: Plan: - She takes methimazole and amiodarone chronically - Thyroid function on admission showing hypothyroidism; TSH 9.3, T3 1.83 - continue to hold methimazole - resumed amiodarone at lower dose - follow TSH in 2 weeks (repeat 08/15) (9) Anemia: Plan: appears to be chronic - Hypochromic microcytic anemia - Iron panel and ferritin level confirm iron deficiency anemia - iron supplement started 08/03 but with constipation and nausea, discontinued 08/05 - IV Venofer given 08/08 Plan Pressure ulcers of right and left buttock, stage 3 - wound care following Chronic stable diagnoses: Depression continue sertraline Hypocalcemia - continue vitamin D and calcium supplement HTN - discontinued metoprolol, Will continue with IV Lasix VTE ppx: Eliquis Diet: heart healthy, diabetes, fluid restricted diet Code status: full Dispo: PCU/telemetry; awaiting surgical cultures, possible amputation, will need inpt rehab Admission and Anticipated Discharge Date Admission Date: July 31, 2024 Subjective 69 yo female reports no new symptoms. Review of Systems Review of Systems: All systems reviewed & are unremarkable except as noted in HPI & below Physical Exam Physical Exam: The patient is alert and oriented 3, well developed and well nourished, normocephalic and atraumatic, in no acute distress. Non-toxic appearing. HEENT- EOMI, mucous membranes moist. Hearing grossly intact. chest: not using accessory muscles to breath. Extremities- no clubbing, cyanosis. +1 lower extremity edema. Left foot with surgical dressings. Wound vac to right dorsal foot. Rheumatologic- decreased range of motion due to pain. Psychiatric- normal affect. Results & Data Results & Data Vital Signs (Past 12 Hours) Vital Signs Temp Pulse Pulse Resp BP Pulse Ox O2 Del Method 08/10/24 15:22 36.6 C 51 L 20 100/57 L 91 Nasal Cannula 08/10/24 11:27 36.3 C L 48 L 18 126/70 95 Nasal Cannula 08/10/24 08:00 44 L 08/10/24 07:35 36.3 C L 56 L 20 109/46 L 97 Nasal Cannula O2 Flow Rate 08/10/24 15:22 3 08/10/24 11:27 08/10/24 08:00 08/10/24 07:35 3 PG Care Time/CCT Total # of Minutes Spent Total Time Spent with Patient: Total time spent is greater than 50% in coordination of care (as documented) at patient's floor/unit and/or counseling patient: Coding Level of Care Code 94320 SUB INP/OBS CARE 2/35MIN Diagnoses Diabetic foot infection E11.628; L08.9 Acute on chronic heart failure with preserved ejection fraction (HFpEF) I50.33 Acute hypoxemic respiratory failure J96.01 Peripheral arterial disease I73.9 Persistent atrial fibrillation I48.19 Nausea & vomiting R11.2 Diabetes mellitus type 2 in obese E11.69; E66.9 Hyperthyroidism E05.90 Anemia D64.9
--- NOTE | 2024-08-10 21:35 | Podiatry Progress Note ---
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 - Wounds all cleaned, redressed at bedside. Xeroform/Adaptic, Aquacel, 4x4, kerlix, Christiano applied bilateral. - Had marlen discussion about prognosis of these limbs, specifically the right. This seems non-viable. She is failing wound care after sharp debridement, failed wound vac, has had revascularization though these wounds still seem completely avascular. - D/W Dr. Tolbert. No improvement is anticipated in bloodflow; larger vessels are currently open after angiogram. - Could continue with conservative wound care/wound care by nursing. With this level of necrotic tissue, Santyl may be tried for further debridement. - Osteomyelitis further confirmed to dorsal foot wound with pathology. - Will likely require BKA but can consider more palliative care; performing regular wound care with no expectation of healing, but also not having large amputation performed. - Will order Santyl as another alternative for now, but anticipate need for higher surgical intervention. Admission and Anticipated Discharge Date Admission Date: July 31, 2024 Subjective Pt seen at bedside, with s/o and daughter. Still has pain to back and limbs. Had wound care remove Vac yesterday with worsening concern of non-healing, m aceration, failure of wounds to improve. She denies any worsening subjective findings. Review of Systems Constitutional: no fever, no chills and no fatigue Eyes: no problem reported Ear, Nose, Mouth, Throat: no problem reported Respiratory: no problem reported Cardiovascular: + edema; no problem reported Gastrointestinal: no nausea, no vomiting and no problem reported Genitourinary: no problem reported Musculoskeletal: no problem reported Integumentary: + skin ulcer, + wounds and + erythema Neurologic: + loss of sensation, + numbness and + pa resthesia; no generalized weakness Psychiatric: no problem reported Physical Exam Physical Exam: Lower extemity exam: Diffuse pitting edema and wound formation noted. Advancing necrosis to anterior leg/dorsal foot wound. No viable tissue remaining between them, with failure of skin/soft tissue bridge between them. TA tendon is mummified. Plantar calcaneal wound is necrotic, worsening necrosis noted to lateral fifth metatarsal as well. No marlen purulence. Wounds are dry. Left lower extremity wounds are more granular, but still 50% fibrotic, 10% necrotic, 40% granular to dorsal wound. Plantar heel is 70% fibrotic, 30% granular. Constitutional: WD/WN, vitals as above + ill appearing and + obese; no acute distress Eyes: PERRL, conjunctivae normal, anicteric sclerae ENMT: external ear and nose normal, oropharynx normal Neck: trachea midline, no thyromegaly normal visual inspection Respiratory: normal respiratory effort; no respiratory distress Cardiovascular: Rate/Rhythm: regular rate and regular rhythm Chest (Breasts): Chest: normal inspection of chest Gastrointestinal (Abdomen): Inspection/Auscultation: abdomen normal to inspection Percussion/Palpation: + abdomen tender and abdomen soft Musculoskeletal: no cyanosis or clubbing, extremities motor strength 5/5 Head/Neck/Chest: normocephalic and head atraumatic Extremities: extremities normal to inspection Neurologic: awake; no focal motor deficits Psychiatric: A+Ox3, euthymic affect Results & Data Results & Data Vital Signs (Past 12 Hours) Vital Signs Temp Pulse Resp BP Pulse Ox O2 Del Method O2 Flow Rate 08/10/24 19:49 36.3 C L 52 L 18 104/60 95 Nasal Cannula 3 08/10/24 15:22 36.6 C 51 L 20 100/57 L 91 Nasal Cannula 3 08/10/24 11:27 36.3 C L 48 L 18 126/70 95 Nasal Cannula
[2024-08-11] MEDS: COLLAGENASE OINT 30 GM TUBE EXT SCH (08:56)
--- NOTE | 2024-08-11 13:49 | Cardiology Progress Note ---
Date of Service August 11, 2024 Assessment & Plan (1) Acute on chronic heart failure with preserved ejection fraction (HFpEF): (2) Bradycardia: (3) CAD (coronary artery disease): (4) Paroxysmal atrial fibrillation: (5) Pulmonary hypertension: (6) Tricuspid regurgitation: (7) Anticoagulant long-term use: (8) Hypertension: (9) Dyslipidemia: Plan ASSESSMENT/PLAN: 1. Acute on chronic heart failure with preserved EF: Still markedly hypervolemic. Mostly the edema is likely due to her significant hypoalbuminemia. Not much output recorded, but this may be artifactual as she may not be cooperative. Additionally she seems to have some aversion to taking medications on occasion. 2. Bradycardia: Mild. No overt symptoms. 3. CAD: Medical therapy was recommended for mostly nonobstructive CAD. High intensity statin therapy. On Eliquis. 4. Paroxysmal atrial fibrillation: Back in atrial fibrillation this afternoon. Not symptomatic. Rates are elevated. I think would simply monitor this for the time being. No hemodynamic derangement other than the high heart rates. Unlikely to tolerate escalating doses of rate control medications due to resting bradycardia. I think would be reasonable however to return her to her prior dose of amiodarone. She is continuing on Eliquis and low-dose amiodarone. She does have tachybradycardia syndrome. Will wait for an opportunity to consider implantation of a pacemaker. Primary contraindications or active infections. 5. Anticoagulation: Continue Eliquis 5 mg twice daily 6. Tricuspid regurgitation: May improve with diuresis. 7. Pulmonary hypertension: Likely related to her hypervolemic state. Continue attempts at diuresis. 8. Dyslipidemia: Continue statin therapy 9. Hypotension: Has a history of hypertension but has been mildly hypotensive here at times. Stable recently. 10. Lower extremity wounds/osteomyelitis: Revascularized. Infectious disease and podiatry following. Consideration be given to amputation. Patient currently refusing per nursing staff. Admission and Anticipated Discharge Date Admission Date: July 31, 2024 Subjective This afternoon the patient complained of some mild foot discomfort that is intermittent in nature. She denied pain elsewhere. No breathing difficulty currently. Good appetite. Tolerated breakfast. She has not been ambulatory or out of bed today. Not aware of any palpitations. Review of Systems Review of Systems: Per HPI Physical Exam Physical Exam: Gen.: Alert. Answered all questions appropriately. Lying flat in bed. HEENT: Anicteric sclera. Cardiac: Irregular and rapid heartbeat. Normal S1-S2. No murmur appreciated Pulmonary: Normal respiratory effort. Poor air movement with deep inspiration. Upper airway sounds and some bibasilar crackles appreciated. Abdomen: Fairly tense in the lower portions. Notable anasarca. Extremities: Dressings on both lower extremities. Tense ascites bilaterally. Results & Data Vital Signs (Past 12 Hours) Vital Signs Temp Pulse Resp BP BP Pulse Ox O2 Del Method 08/11/24 11:50 36.4 C L 52 L 17 126/71 100 Nasal Cannula 08/11/24 07:50 36.6 C 58 L 14 118/55 L 92 Nasal Cannula 08/11/24 03:18 36.4 C L 48 L 18 98/65 L 90 Nasal Cannula O2 Flow Rate 08/11/24 11:50 4 08/11/24 07:50 3 08/11/24 03:18 3 Laboratory Results Abnormal Lab Results 08/10/24 08/10/24 08/11/24 16:16 20:19 07:15 POC Glucose 78 120 H 68 L* 08/11/24 08/11/24 08/11/24 08:30 09:35 11:07 POC Glucose 68 L* 181 H 174 H PG Care Time/CCT Total # of Minutes Spent Total Time Spent with Patient: Total time spent is greater than 50% in coordination of care (as documented) at patient's floor/unit and/or counseling patient: Coding Level of Care Code 44791 SUB INP/OBS CARE 2/35MIN Diagnoses Acute on chronic heart failure with preserved ejection fraction (HFpEF) I50.33 Bradycardia R00.1 CAD (coronary artery disease) I25.10 Paroxysmal atrial fibrillation I48.0 Pulmonary hypertension I27.20 Tricuspid regurgitation I07.1 Anticoagulant long-term use Z79.01 Hypertension I10 Dyslipidemia E78.5
--- NOTE | 2024-08-11 21:07 | Hospitalist Progress Note ---
Date of Service August 11, 2024 Assessment & Plan (1) Diabetic foot infection: Plan: Bilateral foot ulcers with necrosis, osteomyelitis of dorsal right foot wound wound debridement 08/05 and angiogram 08/06 with stents - Mild leukocytosis secondary to recent procedures - afebrile, VSS, blood cultures negative - no signs of systemic infection at this time - Continue IV Tylenol, home oxycodone, and prn morphine - see hypercapnia below; to only use morphine when Tylenol and oxycodone do not relieve pain - Wound cultures showed pseudomonas aeruginosa, Kerstersia gyiorum, and Alcaligenes faecalis - continue Zosyn, ID following as will need prolonged course IV abx - surgical cultures pending; Talus bone pathology pending - Wound care consulted; see images in chart - wound vac to right foot wound 08/06 - Podiatry following - Given no improvement and worsening of right lower extremity despite wound vac, appears patient will require right BKA 3.1% Risk of myocardial infarction or cardiac arrest, intraoperatively or up to 30 days post-op Patient remains undecided on surgery. Explained to patient that without surgery this will likely result in sepsis and will likely cause her to succumb to this infection. (2) Acute on chronic heart failure with preserved ejection fraction (HFpEF): Plan: With anasarca, ascites, and pulm edema; noncompliant on home diuretic - Last echocardiogram 08/01/24 showed EF 60 to 65%, no motion wall abnormalities, right ventricle mildly dilated, severe pulmonary hypertension, worsening tricuspid regurg - BNP 1480 on admission - Strict I&O monitoring and daily weights - cardiology following - referral to CHF clinic made Hypokalemia; improving - potassium repletion throughout hospital stay; patient with resistance to taking PO K+ - spironolactone increased to 50 mg 08/06 - potassium 40 meq once daily Hypomagnesia - repletion throughout hospital course - With likely contraction alkalosis from intravascular volume depletion, hypoalbuminemia, do not want to further increase Lasix, but rather will give one dose Diamox 250mg IV, follow BMP -continue Boost shakes for improved nutrition - Daily BMP; Mg in AM (3) Acute hypoxemic respiratory failure: Plan: Due to underlying CHF - patient not on oxygen at home - Wean off O2 as tolerated; currently on 2L nasal cannula - elevated pO2 on ABG - nurse attempted to lower flow rate but dropped O2 in mid 80s CO2 retention ; secondary to sedation overdose vs contraction alkalosis with diuresis, possibly component of hypothyroidism - CO2 43 on BMP 08/08; has been increasingly elevated - ABG on 08/08 7.47/56/112 on 2 L O2 which likely reflects her known chronic respiratory acidosis with compensatory metabolic alkalosis compensation along with acute contraction alkalosis -At risk for CO2 retention due to COPD-caution with opioids-morphine may be making her nauseated-switch to Dilaudid and watch for CO2 retention - recommend nocturnal pulse ox at rehab facility and formal out patient sleep study - will likely improve with pain medication adjustment and further diuresis (4) Peripheral arterial disease: Plan: PAD with CAD bilateral LE angiogram 08/06 with stent to RT External iliac and angioplasty with VIOLET to RT SFA - continue daily baby aspirin, high intensity statin; Plavix x 1 month (until 09/07) - consulted Dr. Tolbert for vascular management - repeat noninvasive vascular testing in 2 weeks - plan for LT SFA intervention as outpatient (5) Persistent atrial fibrillation: Plan: Chronic history of tachybradycardia syndrome and paroxysmal atrial fibrillation on Eliquis - Cardiology following - will need outpatient follow-up with electrophysiology to discuss pacemaker for tachybradycardia syndrome - not a candidate for pacemaker at this time given wounds - sinus bradycardia on admission -> converted to a fib with RVR (HR up to 180) 08/04 -> back into sinus bradycardia 0937 08/04 - thyroid panel showing hypothyroidism; possibly secondary to amiodarone use vs overmedication with methimazole - Continue Eliquis - discontinued metoprolol on admission - discussed with cardiology, restarted patient on 100 mg amiodarone (200 mg at home - lowered dose due to bradycardia) - monitor thyroid function and transaminase levels while on amiodarone (repeat labs 08/15) (6) Nausea & vomiting: Plan: nausea every morning due to taking medications on empty stomach and may be due to morphine use? - CT of abd/pelv on admission showed no acute concerns, ascites - encourage food intake in AM (7) Diabetes mellitus type 2 in obese: Plan: history of type 2 diabetes with diabetic foot ulcers - Diabetic diet - Hold home Januvia - A1c 5.7 - NovoLog discontinued 08/03 as patient needing minimal insulin and hypoglycemic at times - glucose stable (8) Hyperthyroidism: Plan: - She takes methimazole and amiodarone chronically - Thyroid function on admission showing hypothyroidism; TSH 9.3, T3 1.83 - continue to hold methimazole - resumed amiodarone at lower dose - follow TSH in 2 weeks (repeat 08/15) (9) Anemia: Plan: appears to be chronic - Hypochromic microcytic anemia - Iron panel and ferritin level confirm iron deficiency anemia - iron supplement started 08/03 but with constipation and nausea, discontinued 08/05 - IV Venofer given 08/08 Plan Pressure ulcers of right and left buttock, stage 3 - wound care following Chronic stable diagnoses: Depression continue sertraline Hypocalcemia - continue vitamin D and calcium supplement HTN - discontinued metoprolol, Will continue with IV Lasix VTE ppx: Eliquis Diet: heart healthy, diabetes, fluid restricted diet Code status: full Dispo: PCU/telemetry; awaiting surgical cultures, possible amputation, will need inpt rehab Admission and Anticipated Discharge Date Admission Date: July 31, 2024 Subjective Patient contiues to be undecided on surgery, though she is considering more toward the amputation now than yesterday. Review of Systems Review of Systems: All systems reviewed & are unremarkable except as noted in HPI & below Physical Exam Physical Exam: The patient is alert and oriented 3, well developed and well nourished, normocephalic and atraumatic, in no acute distress. Non-toxic appearing. HEENT- EOMI, mucous membranes moist. Hearing grossly intact. chest: not using accessory muscles to breath. Extremities- no clubbing, cyanosis. +1 lower extremity edema. Left foot with surgical dressings. No longer with wound vac. Rheumatologic- decreased range of motion due to pain. Psychiatric- normal affect. Results & Data Results & Data Vital Signs (Past 12 Hours) Vital Signs Temp Pulse Pulse Resp BP BP Pulse Ox 08/11/24 19:23 36.3 C L 97 H 18 102/71 96 08/11/24 15:28 37.2 C 102 H 12 101/82 99 08/11/24 14:14 133 H 08/11/24 13:40 08/11/24 11:50 36.4 C L 52 L 17 126/71 100 O2 Del Method O2 Flow Rate 08/11/24 19:23 Nasal Cannula 3 08/11/24 15:28 High Flow Nasal Cannula 4 08/11/24 14:14 08/11/24 13:40 Nasal Cannula 4 08/11/24 11:50 Nasal Cannula 4 PG Care Time/CCT Total # of Minutes Spent Total Time Spent with Patient: Total time spent is greater than 50% in coordination of care (as documented) at patient's floor/unit and/or counseling patient: Coding Level of Care Code 16814 SUB INP/OBS CARE 2/35MIN Diagnoses Diabetic foot infection E11.628; L08.9 Acute on chronic heart failure with preserved ejection fraction (HFpEF) I50.33 Acute hypoxemic respiratory failure J96.01 Peripheral arterial disease I73.9 Persistent atrial fibrillation I48.19 Nausea & vomiting R11.2 Diabetes mellitus type 2 in obese E11.69; E66.9 Hyperthyroidism E05.90 Anemia D64.9 Time Spent (min) 35
[2024-08-11] MEDS: HYDROmorphone INJ 0.5 MG/0.5 ML SYR IV PRN (22:56)
[2024-08-12 07:25] LABS: Basophils # (auto) 0.08 K/uL (0.00-0.20); Basophils % (auto) 0.8 %; Eosinophils # (auto) 0.34 K/uL (0.00-0.50); Eosinophils % (auto) 3.6 %; Hematocrit (blood only) 37.5 % (37.0-47.0); Hemoglobin 11.3 g/dl (12.0-16.0); Immature Granulocytes # (auto) 0.07 K/uL (0.01-0.20); Immature Granulocytes % (auto) 0.7 %; Lymphocytes # (auto) 0.76 K/uL (1.20-3.40); Mean Corpuscular Hemoglobin 25.3 pg (25.0-34.0); Mean Corpuscular Hgb Conc 30.1 g/dL (32.0-36.0); Mean Corpuscular Volume 84.1 fL (80.0-100.0); Mean Platelet Volume 10.6 fL (9.4-12.4); Monocytes # (auto) 0.66 K/uL (0.11-0.59); Monocytes % (auto) 6.9 %; Neutrophils # (auto) 7.63 K/uL (1.40-6.50); Platelet Count 376 K/uL (130-400); RDW Coefficient of Variation 19.8 % (11.5-14.5); RDW Standard Deviation 60.4 fL (36.4-46.3); Red Blood Count 4.46 M/uL (4.20-5.40); White Blood Count 9.54 K/ul (4.8-10.8)
[2024-08-12 07:34] LABS: BUN Creatinine Ratio 19.7 (10-20); C Reactive Protein 8.16 mg/dl (0-0.5); Calcium 7.9 mg/dl (8.6-10.3); Creatinine Clr Calc Pharmacy 85.6 ml/min; Potassium 3.3 mmol/L (3.5-5.1)
[2024-08-12] MEDS: AMIODARONE 200 MG TAB PO SCH (09:06)
--- NOTE | 2024-08-12 16:44 | Cardiology Progress Note ---
Date of Service August 12, 2024 Assessment & Plan (1) Acute on chronic heart failure with preserved ejection fraction (HFpEF): (2) Bradycardia: (3) CAD (coronary artery disease): (4) Paroxysmal atrial fibrillation: (5) Pulmonary hypertension: (6) Tricuspid regurgitation: (7) Anticoagulant long-term use: (8) Hypertension: (9) Dyslipidemia: Plan ASSESSMENT/PLAN: 1. Acute on chronic heart failure with preserved EF: Still markedly hypervolemic. Mostly the edema is likely due to her significant hypoalbuminemia. Not much output recorded, but this may be artifactual as she may not be cooperative. Additionally she seems to have some aversion to taking medications on occasion. 2. Bradycardia: Mild. No overt symptoms. 3. CAD: Medical therapy was recommended for mostly nonobstructive CAD. High intensity statin therapy. On Eliquis. 4. Paroxysmal atrial fibrillation: She continues in atrial fibrillation. Elevated ventricular rates. No symptoms. I think we will add her beta-love again. Continue amiodarone. 5. Anticoagulation: Continue Eliquis 5 mg twice daily 6. Tricuspid regurgitation: May improve with diuresis. 7. Pulmonary hypertension: Likely related to her hypervolemic state. Continue attempts at diuresis. 8. Dyslipidemia: Continue statin therapy 9. Hypotension: Has a history of hypertension but has been mildly hypotensive here at times. Stable recently. 10. Lower extremity wounds/osteomyelitis: Revascularized. Infectious disease and podiatry following. Consideration be given to amputation. Admission and Anticipated Discharge Date Admission Date: July 31, 2024 Subjective This afternoon the patient claimed to be feeling well. She denied pain in the right foot. She denied breathing difficulty. She has not been aware of any palpitations. Not ambulatory. Review of Systems Review of Systems: Per HPI Physical Exam Physical Exam: Gen.: Alert. Answered all questions appropriately. Lying flat in bed. HEENT: Anicteric sclera. Cardiac: Irregular and rapid heartbeat. Normal S1-S2. No murmur appreciated Pulmonary: Normal respiratory effort. Poor air movement with deep inspiration. Upper airway sounds and some bibasilar crackles appreciated. Abdomen: Fairly tense in the lower portions. Notable anasarca. Extremities: Dressings on both lower extremities. Tense ascites bilaterally. Results & Data Vital Signs (Past 12 Hours) Vital Signs Temp Pulse Resp BP Pulse Ox O2 Del Method O2 Flow Rate 08/12/24 15:35 36.7 C 58 L 18 99/56 L 100 Nasal Cannula 3 08/12/24 11:24 36.7 C 101 H 16 101/82 98 Nasal Cannula 3 08/12/24 07:42 36.7 C 83 18 94/65 L 99 Nasal Cannula 3 Laboratory Results Abnormal Lab Results 08/11/24 08/12/24 08/12/24 20:31 06:48 07:09 WBC 9.54 RBC 4.46 Hgb 11.3 L Hct 37.5 MCV 84.1 MCH 25.3 MCHC 30.1 L RDW Std Deviation 60.4 H RDW Coeff of Rasheed 19.8 H Plt Count 376 MPV 10.6 Immature Gran % (Auto) 0.7 Neut % (Auto) 80.0 Lymph % (Auto) 8.0 [place] % (Auto) 6.9 Eos % (Auto) 3.6 Baso % (Auto) 0.8 Neut # (Auto) 7.63 H Lymph # (Auto) 0.76 L [place] # (Auto) 0.66 H Eos # (Auto) 0.34 Baso # (Auto) 0.08 Immature Gran # (Auto) 0.07 Sodium 138 Potassium 3.3 L Chloride 95 L Carbon Dioxide 37 H Anion Gap 6 BUN 12 Creatinine 0.61 Est Cr Clr Drug Dosing 85.6 eGFR 97.93 BUN/Creatinine Ratio 19.7 Glucose 68 L POC Glucose 106 H 70 Calcium 7.9 L C-Reactive Protein 8.16 H B-Natriuretic Peptide 1154 H Procalcitonin 0.08 08/12/24 08/12/24 11:10 16:24 WBC RBC Hgb Hct MCV MCH MCHC RDW Std Deviation RDW Coeff of Rasheed Plt Count MPV Immature Gran % (Auto) Neut % (Auto) Lymph % (Auto) [place] % (Auto) Eos % (Auto) Baso % (Auto) Neut # (Auto) Lymph # (Auto) [place] # (Auto) Eos # (Auto) Baso # (Auto) Immature Gran # (Auto) Sodium Potassium Chloride Carbon Dioxide Anion Gap BUN Creatinine Est Cr Clr Drug Dosing eGFR BUN/Creatinine Ratio Glucose POC Glucose 128 H 88 Calcium C-Reactive Protein B-Natriuretic Peptide Procalcitonin PG Care Time/CCT Total # of Minutes Spent Total Time Spent with Patient: Total time spent is greater than 50% in coordination of care (as documented) at patient's floor/unit and/or counseling patient: Coding Level of Care Code 83955 SUB INP/OBS CARE 235MIN Diagnoses Acute on chronic heart failure with preserved ejection fraction (HFpEF) I50.33 Bradycardia R00.1 CAD (coronary artery disease) I25.10 Paroxysmal atrial fibrillation I48.0 Pulmonary hypertension I27.20 Tricuspid regurgitation I07.1 Anticoagulant long-term use Z79.01 Hypertension I10 Dyslipidemia E78.5
[2024-08-12] MEDS: METOPROLOL TARTRATE 25 MG TAB PO SCH (20:22)
--- NOTE | 2024-08-12 22:55 | Hospitalist Progress Note ---
Date of Service August 12, 2024 Assessment & Plan (1) Diabetic foot infection: Plan: Bilateral foot ulcers with necrosis, osteomyelitis of dorsal right foot wound wound debridement 08/05 and angiogram 08/06 with stents - Mild leukocytosis secondary to recent procedures - afebrile, VSS, blood cultures negative - no signs of systemic infection at this time - Continue IV Tylenol, home oxycodone, and prn morphine - see hypercapnia below; to only use morphine when Tylenol and oxycodone do not relieve pain - Wound cultures showed pseudomonas aeruginosa, Kerstersia gyiorum, and Alcaligenes faecalis - continue Zosyn, ID following as will need prolonged course IV abx - surgical cultures pending; Talus bone pathology pending - Wound care consulted; see images in chart - wound vac to right foot wound 08/06 - Podiatry following - Given no improvement and worsening of right lower extremity despite wound vac, appears patient will require right BKA 3.1% Risk of myocardial infarction or cardiac arrest, intraoperatively or up to 30 days post-op Patient is more agreeable to surgery. I will inform the circulation crew leader. (2) Acute on chronic heart failure with preserved ejection fraction (HFpEF): Plan: With anasarca, ascites, and pulm edema; noncompliant on home diuretic - Last echocardiogram 08/01/24 showed EF 60 to 65%, no motion wall abnormalities, right ventricle mildly dilated, severe pulmonary hypertension, worsening tricuspid regurg - BNP 1480 on admission - Strict I&O monitoring and daily weights - cardiology following - referral to CHF clinic made Hypokalemia; improving - potassium repletion throughout hospital stay; patient with resistance to taking PO K+ - spironolactone increased to 50 mg 08/06 - potassium 40 meq once daily Hypomagnesia - repletion throughout hospital course - With likely contraction alkalosis from intravascular volume depletion, hypoalbuminemia, do not want to further increase Lasix, but rather will give one dose Diamox 250mg IV, follow BMP -continue Boost shakes for improved nutrition - Daily BMP; Mg in AM (3) Acute hypoxemic respiratory failure: Plan: Due to underlying CHF - patient not on oxygen at home - Wean off O2 as tolerated; currently on 2L nasal cannula - elevated pO2 on ABG - nurse attempted to lower flow rate but dropped O2 in mid 80s CO2 retention ; secondary to sedation overdose vs contraction alkalosis with diuresis, possibly component of hypothyroidism - CO2 43 on BMP 08/08; has been increasingly elevated - ABG on 08/08 7.47/56/112 on 2 L O2 which likely reflects her known chronic respiratory acidosis with compensatory metabolic alkalosis compensation along with acute contraction alkalosis -At risk for CO2 retention due to COPD-caution with opioids-morphine may be making her nauseated-switch to Dilaudid and watch for CO2 retention - recommend nocturnal pulse ox at rehab facility and formal out patient sleep study - will likely improve with pain medication adjustment and further diuresis (4) Peripheral arterial disease: Plan: PAD with CAD bilateral LE angiogram 08/06 with stent to RT External iliac and angioplasty with VIOLET to RT SFA - continue daily baby aspirin, high intensity statin; Plavix x 1 month (until 09/07) - consulted Dr. Tolbert for vascular management - repeat noninvasive vascular testing in 2 weeks - plan for LT SFA intervention as outpatient (5) Persistent atrial fibrillation: Plan: Chronic history of tachybradycardia syndrome and paroxysmal atrial fibrillation on Eliquis - Cardiology following - will need outpatient follow-up with electrophysiology to discuss pacemaker for tachybradycardia syndrome - not a candidate for pacemaker at this time given wounds - sinus bradycardia on admission -> converted to a fib with RVR (HR up to 180) 08/04 -> back into sinus bradycardia 0937 08/04 - thyroid panel showing hypothyroidism; possibly secondary to amiodarone use vs overmedication with methimazole - Continue Eliquis - discontinued metoprolol on admission - discussed with cardiology, restarted patient on 100 mg amiodarone (200 mg at home - lowered dose due to bradycardia) - monitor thyroid function and transaminase levels while on amiodarone (repeat labs 08/15) (6) Nausea & vomiting: Plan: nausea every morning due to taking medications on empty stomach and may be due to morphine use? - CT of abd/pelv on admission showed no acute concerns, ascites - encourage food intake in AM (7) Diabetes mellitus type 2 in obese: Plan: history of type 2 diabetes with diabetic foot ulcers - Diabetic diet - Hold home Januvia - A1c 5.7 - NovoLog discontinued 08/03 as patient needing minimal insulin and hypoglycemic at times - glucose stable (8) Hyperthyroidism: Plan: - She takes methimazole and amiodarone chronically - Thyroid function on admission showing hypothyroidism; TSH 9.3, T3 1.83 - continue to hold methimazole - resumed amiodarone at lower dose - follow TSH in 2 weeks (repeat 08/15) (9) Anemia: Plan: appears to be chronic - Hypochromic microcytic anemia - Iron panel and ferritin level confirm iron deficiency anemia - iron supplement started 08/03 but with constipation and nausea, discontinued 08/05 - IV Venofer given 08/08 Plan Pressure ulcers of right and left buttock, stage 3 - wound care following Chronic stable diagnoses: Depression continue sertraline Hypocalcemia - continue vitamin D and calcium supplement HTN - discontinued metoprolol, Will continue with IV Lasix VTE ppx: Eliquis Diet: heart healthy, diabetes, fluid restricted diet Code status: full Dispo: PCU/telemetry; awaiting surgical cultures, possible amputation, will need inpt rehab Admission and Anticipated Discharge Date Admission Date: July 31, 2024 Subjective 69 yo female reports no new symptoms. She appears to be agreeable to having surgery. Review of Systems Review of Systems: All systems reviewed & are unremarkable except as noted in HPI & below Physical Exam Physical Exam: The patient is alert and oriented 3, well developed and well nourished, normocephalic and atraumatic, in no acute distress. Non-toxic appearing. HEENT- EOMI, mucous membranes moist. Hearing grossly intact. chest: not using accessory muscles to breath. Extremities- no clubbing, cyanosis. +1 lower extremity edema. Left foot with surgical dressings. No longer with wound vac. Rheumatologic- decreased range of motion due to pain. Psychiatric- normal affect. Results & Data Results & Data Vital Signs (Past 12 Hours) Vital Signs Temp Pulse Resp BP Pulse Ox O2 Del Method O2 Flow Rate 08/12/24 22:25 36.3 C L 52 L 16 116/66 97 Nasal Cannula 3 08/12/24 20:29 Nasal Cannula 3 08/12/24 19:10 36.4 C L 56 L 16 126/71 95 Nasal Cannula 3 08/12/24 15:35 36.7 C 58 L 18 99/56 L 100 Nasal Cannula 3 08/12/24 11:24 36.7 C 101 H 16 101/82 98 Nasal Cannula 3 PG Care Time/CCT Total # of Minutes Spent Total Time Spent with Patient: Total time spent is greater than 50% in coordination of care (as documented) at patient's floor/unit and/or counseling patient: Coding Level of Care Code 80674 SUB INP/OBS CARE 235MIN Diagnoses Diabetic foot infection E11.628; L08.9 Acute on chronic heart failure with preserved ejection fraction (HFpEF) I50.33 Acute hypoxemic respiratory failure J96.01 Peripheral arterial disease I73.9 Persistent atrial fibrillation I48.19 Nausea & vomiting R11.2 Diabetes mellitus type 2 in obese E11.69; E66.9 Hyperthyroidism E05.90 Anemia D64.9
[2024-08-13 06:42] LABS: Basophils # (auto) 0.11 K/uL (0.00-0.20); Basophils % (auto) 1.2 %; Eosinophils # (auto) 0.36 K/uL (0.00-0.50); Hematocrit (blood only) 33.9 % (37.0-47.0); Hemoglobin 10.7 g/dl (12.0-16.0); Immature Granulocytes # (auto) 0.07 K/uL (0.01-0.20); Immature Granulocytes % (auto) 0.8 %; Lymphocytes # (auto) 0.62 K/uL (1.20-3.40); Lymphocytes % (auto) 6.9 %; Mean Corpuscular Hemoglobin 26.1 pg (25.0-34.0); Mean Corpuscular Hgb Conc 31.6 g/dL (32.0-36.0); Mean Corpuscular Volume 82.7 fL (80.0-100.0); Mean Platelet Volume 10.5 fL (9.4-12.4); Monocytes # (auto) 0.64 K/uL (0.11-0.59); Monocytes % (auto) 7.1 %; Neutrophils # (auto) 7.24 K/uL (1.40-6.50); Platelet Count 377 K/uL (130-400); RDW Coefficient of Variation 19.9 % (11.5-14.5); RDW Standard Deviation 59.2 fL (36.4-46.3); White Blood Count 9.04 K/ul (4.8-10.8)
[2024-08-13 07:05] LABS: BUN Creatinine Ratio 21.7 (10-20); C Reactive Protein 7.05 mg/dl (0-0.5); Calcium 7.9 mg/dl (8.6-10.3); Creatinine Clr Calc Pharmacy 84.5 ml/min; Potassium 3.1 mmol/L (3.5-5.1)
--- NOTE | 2024-08-13 11:59 | Cardiology Progress Note ---
Date of Service August 13, 2024 Assessment & Plan (1) Acute on chronic heart failure with preserved ejection fraction (HFpEF): (2) Bradycardia: (3) CAD (coronary artery disease): (4) Paroxysmal atrial fibrillation: (5) Pulmonary hypertension: (6) Tricuspid regurgitation: (7) Anticoagulant long-term use: (8) Hypertension: (9) Dyslipidemia: Plan ASSESSMENT/PLAN: 1. Acute on chronic heart failure with preserved EF: Volume status improving. She is affecting a daily diuresis. Would seem reasonable continue her current dose of Lasix given the stability of her renal function. At some point could be switched to an oral regimen. 2. Bradycardia: Mild. No overt symptoms. She does have some slow heart rates at times, but she has not been ambulatory and I do not think there is any concern with heart rates even in the 40s while she is in bed. Will continue her current dose of metoprolol. 3. CAD: Medical therapy was recommended for mostly nonobstructive CAD. High intensity statin therapy. On Eliquis. 4. Paroxysmal atrial fibrillation: Paroxysmal. She was in atrial fibrillation for an extended period over the past couple of days. Now back in a sinus bradycardia. Not symptomatic. Metoprolol added back to her medical regimen for better rate control. I think will be reasonable continue her on her current dose of amiodarone and metoprolol. She will continue Eliquis as well. 5. Anticoagulation: Continue Eliquis 5 mg twice daily 6. Tricuspid regurgitation: May improve with diuresis. 7. Pulmonary hypertension: Likely related to her hypervolemic state. Continue diuresis. 8. Dyslipidemia: Continue statin therapy 9. Lower extremity wounds/osteomyelitis: Revascularized. Infectious disease and podiatry following. Consideration be given to amputation. I will be away from the hospital for the next 2 days. I do not think there are any acute cardiac issues that require daily management. At this point I would simply continue diuresis as tolerated. She can continue on her current medical therapy for atrial fibrillation. At some point she would be a good candidate for a pacemaker in the setting of tachybradycardia syndrome. However, this is relatively contraindicated given her active infection. She can be reevaluated once that has been adequately addressed. Please contact the on-call executive director of marketing for any acute questions over the weekend. Admission and Anticipated Discharge Date Admission Date: July 31, 2024 Subjective This morning the patient claimed to be feeling better. Some occasional pains in the right foot. No breathing difficulty. She tolerated breakfast. She has not been out of bed. Review of Systems Review of Systems: Per HPI Physical Exam Physical Exam: Gen.: Alert. Answered all questions appropriately. Lying flat in bed. HEENT: Anicteric sclera. Cardiac: Irregular and rapid heartbeat. Normal S1-S2. No murmur appreciated Pulmonary: Distant breath sounds. Poor excursion. No rales. No expiratory wheezing. Normal respiratory effort. Abdomen: Fairly tense in the lower portions. Notable anasarca. Extremities: Dressings on both lower extremities. Tense ascites bilaterally. Results & Data Vital Signs (Past 12 Hours) Vital Signs Temp Pulse Resp BP Pulse Ox O2 Del Method O2 Flow Rate 08/13/24 11:30 36.6 C 88 16 128/61 99 Room Air, Nasal Cannula 08/13/24 10:37 Nasal Cannula 4 08/13/24 08:00 36.6 C 75 18 118/59 L 98 Room Air, Nasal Cannula 08/13/24 03:19 36.4 C L 64 20 102/63 99 Nasal Cannula 3 Laboratory Results Abnormal Lab Results 08/12/24 08/12/24 08/13/24 16:24 20:07 05:18 WBC 9.04 RBC 4.10 L Hgb 10.7 L Hct 33.9 L MCV 82.7 MCH 26.1 MCHC 31.6 L RDW Std Deviation 59.2 H RDW Coeff of Rasheed 19.9 H Plt Count 377 MPV 10.5 Immature Gran % (Auto) 0.8 Neut % (Auto) 80.0 Lymph % (Auto) 6.9 [place] % (Auto) 7.1 Eos % (Auto) 4.0 Baso % (Auto) 1.2 Neut # (Auto) 7.24 H Lymph # (Auto) 0.62 L [place] # (Auto) 0.64 H Eos # (Auto) 0.36 Baso # (Auto) 0.11 Immature Gran # (Auto) 0.07 Sodium 139 Potassium 3.1 L Chloride 96 L Carbon Dioxide 37 H Anion Gap 6 BUN 13 Creatinine 0.60 Est Cr Clr Drug Dosing 84.5 eGFR 98.32 BUN/Creatinine Ratio 21.7 H Glucose 71 POC Glucose 88 85 Calcium 7.9 L C-Reactive Protein 7.05 H 08/13/24 08/13/24 07:19 11:15 WBC RBC Hgb Hct MCV MCH MCHC RDW Std Deviation RDW Coeff of Rasheed Plt Count MPV Immature Gran % (Auto) Neut % (Auto) Lymph % (Auto) [place] % (Auto) Eos % (Auto) Baso % (Auto) Neut # (Auto) Lymph # (Auto) [place] # (Auto) Eos # (Auto) Baso # (Auto) Immature Gran # (Auto) Sodium Potassium Chloride Carbon Dioxide Anion Gap BUN Creatinine Est Cr Clr Drug Dosing eGFR BUN/Creatinine Ratio Glucose POC Glucose 98 103 H Calcium C-Reactive Protein PG Care Time/CCT Total # of Minutes Spent Total Time Spent with Patient: Total time spent is greater than 50% in coordination of care (as documented) at patient's floor/unit and/or counseling patient: Coding Level of Care Code 09479 SUB INP/OBS CARE 2/35MIN Diagnoses Acute on chronic heart failure with preserved ejection fraction (HFpEF) I50.33 Bradycardia R00.1 CAD (coronary artery disease) I25.10 Paroxysmal atrial fibrillation I48.0 Pulmonary hypertension I27.20 Tricuspid regurgitation I07.1 Anticoagulant long-term use Z79.01 Hypertension I10 Dyslipidemia E78.5
[2024-08-13] MEDS ORDERED: POTASSIUM CHLORIDE / WTR 10 MEQ/100 ML PLCT IV SCH (17:00)
[2024-08-13] MEDS: POLYETHYLENE (MIRALAX) 17 GM PACK PO SCH (17:19)
[2024-08-13] MEDS: POTASSIUM CHLORIDE 10 MEQ TABCR PO SCH (17:19)
--- NOTE | 2024-08-13 17:25 | XRay Report ---
EXAM: Radiograph of the Abdomen 1 View INDICATION: Constipation. TECHNIQUE: Frontal supine view of the abdomen/pelvis. COMPARISON: 07/31/2024 FINDINGS: Limitations: None. Gastrointestinal tract: Compared to the prior examination the total colonic stool burden has decreased and is now moderate in the hepatic flexure. No distention. Air to the rectum. Organs: Visualized organ shadows appear grossly normal. Bones/joints: No fracture, erosion or dislocation. Soft tissues: No abnormality noted. No radiopaque foreign body noted. IMPRESSION: Moderate amounts of hepatic flexure stool without obstruction. The amount of stool is decreased compared to 07/31/2024. Electronically signed by Barbara Moscoso 08-13-2024 5:25 PM
[2024-08-13] MEDS: PROCHLORPERAZINE 10 MG in SYRINGE 8 ML IV ONE (22:38)
[2024-08-13] MEDS: ACETAMINOPHEN 1,000 MG/100 ML VIAL IV STA (23:26)
[2024-08-14] MEDS: PROCHLORPERAZINE 10 MG in SYRINGE 8 ML IV ONE (06:32)
--- NOTE | 2024-08-14 07:18 | Podiatry Progress Note ---
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 - Wounds all cleaned, redressed by nursing earlier. - Osteomyelitis further confirmed to dorsal foot wound with pathology. - Will require BKA on right. This limb has not responded to any treatment yet. - Wound care is currently keeping wounds as clean as possible, but the limb is acutely non-viable. - Will continue to follow, especially for left foot which is still salvageable, but this RLE will require amputation. Admission and Anticipated Discharge Date Admission Date: July 31, 2024 Subjective Pt seen at bedside. Having pain to RLE. Had wound care, dressing changes earlier with Wound Care Nursing team. Pain noted on dressing changes. No changes otherwise, subjectively. Review of Systems Constitutional: no fever, no chills and no fatigue Eyes: no problem reported Ear, Nose, Mouth, Throat: no problem reported Respiratory: no problem reported Cardiovascular: + edema; no problem reported Gastrointestinal: no nausea, no vomiting and no problem reported Genitourinary: no problem reported Musculoskeletal: no problem reported Integumentary: + skin ulcer, + wounds and + erythema Neurologic: + loss of sensation, + numbness and + pa resthesia; no generalized weakness Psychiatric: no problem reported Physical Exam Physical Exam: Lower extemity exam: Diffuse pitting edema and wound formation noted. Advancing necrosis to anterior leg/dorsal foot wound. No viable tissue remaining between these two wounds, with failure of skin/soft tissue bridge between them. TA tendon is mummified. Plantar calcaneal wound is necrotic, worsening necrosis noted to lateral fifth metatarsal as well. New necrotic ulcer to posterior calf, proximal to calcaneal pressure ulcer. No marlen purulence. Wounds are dry, necrotic. Left lower extremity wounds are more granular, but still 50% fibrotic, 10% necrotic, 40% granular to dorsal wound. Plantar heel is 80% fibrotic, 20% granular. Constitutional: WD/WN, vitals as above + ill appearing and + obese; no acute distress Eyes: PERRL, conjunctivae normal, anicteric sclerae ENMT: external ear and nose normal, oropharynx normal Neck: trachea midline, no thyromegaly normal visual inspection Respiratory: normal respiratory effort; no respiratory distress Cardiovascular: Rate/Rhythm: regular rate and regular rhythm Chest (Breasts): Chest: normal inspection of chest Gastrointestinal (Abdomen): Inspection/Auscultation: abdomen normal to inspection Percussion/Palpation: + abdomen tender and abdomen soft Musculoskeletal: no cyanosis or clubbing, extremities motor strength 5/5 Head/Neck/Chest: normocephalic and head atraumatic Extremities: extremities normal to inspection Neurologic: awake; no focal motor deficits Psychiatric: A+Ox3, euthymic affect Results & Data Results & Data Vital Signs (Past 12 Hours) Vital Signs Temp Pulse Pulse Resp BP Pulse Ox O2 Del Method 08/14/24 02:59 36.6 C 53 L 16 120/70 98 Nasal Cannula 08/13/24 23:35 Nasal Cannula 08/13/24 22:56 36.3 C L 52 L 16 149/76 H 95 Nasal Cannula 08/13/24 21:50 52 L 08/13/24 19:15 36.3 C L 49 L 20 111/63 90 Nasal Cannula O2 Flow Rate 08/14/24 02:59 08/13/24 23:35 3 08/13/24 22:56 08/13/24 21:50 08/13/24 19:15
--- NOTE | 2024-08-14 10:46 | Hospitalist Progress Note ---
Date of Service August 13, 2024 Assessment & Plan (1) Diabetic foot infection: Plan: Bilateral foot ulcers with necrosis, osteomyelitis of dorsal right foot wound wound debridement 08/05 and angiogram 08/06 with stents - Mild leukocytosis secondary to recent procedures - afebrile, VSS, blood cultures negative - no signs of systemic infection at this time - Continue IV Tylenol, home oxycodone, and prn morphine - see hypercapnia below; to only use morphine when Tylenol and oxycodone do not relieve pain - Wound cultures showed pseudomonas aeruginosa, Kerstersia gyiorum, and Alcaligenes faecalis - continue Zosyn, ID following as will need prolonged course IV abx - surgical cultures pending; Talus bone pathology pending - Wound care consulted; see images in chart - wound vac to right foot wound 08/06 - Podiatry following - Given no improvement and worsening of right lower extremity despite wound vac, appears patient will require right BKA 3.1% Risk of myocardial infarction or cardiac arrest, intraoperatively or up to 30 days post-op Patient is more agreeable to surgery. I will inform the bilingual loan processor. Consulted ortho, recommend vascular to be involved. Patient though continued to be undecided despite explaining to her the longer she delays, the more complicated she will get. Consulted vascular for amputation, though patient remians undecided. Hypokalemia: Replenished on 08/13 Abdominal distention: Ordered KUB. ordered miralax. (2) Acute on chronic heart failure with preserved ejection fraction (HFpEF): Plan: With anasarca, ascites, and pulm edema; noncompliant on home diuretic - Last echocardiogram 08/01/24 showed EF 60 to 65%, no motion wall abnormalities, right ventricle mildly dilated, severe pulmonary hypertension, worsening tricuspid regurg - BNP 1480 on admission - Strict I&O monitoring and daily weights - cardiology following - referral to CHF clinic made Hypokalemia; improving - potassium repletion throughout hospital stay; patient with resistance to taking PO K+ - spironolactone increased to 50 mg 08/06 - potassium 40 meq once daily Hypomagnesia - repletion throughout hospital course - With likely contraction alkalosis from intravascular volume depletion, hypoalbuminemia, do not want to further increase Lasix, but rather will give one dose Diamox 250mg IV, follow BMP -continue Boost shakes for improved nutrition - Daily BMP; Mg in AM (3) Acute hypoxemic respiratory failure: Plan: Due to underlying CHF - patient not on oxygen at home - Wean off O2 as tolerated; currently on 2L nasal cannula - elevated pO2 on ABG - nurse attempted to lower flow rate but dropped O2 in mid 80s CO2 retention ; secondary to sedation overdose vs contraction alkalosis with diuresis, possibly component of hypothyroidism - CO2 43 on BMP 08/08; has been increasingly elevated - ABG on 08/08 7.47/56/112 on 2 L O2 which likely reflects her known chronic respiratory acidosis with compensatory metabolic alkalosis compensation along with acute contraction alkalosis -At risk for CO2 retention due to COPD-caution with opioids-morphine may be making her nauseated-switch to Dilaudid and watch for CO2 retention - recommend nocturnal pulse ox at rehab facility and formal out patient sleep study - will likely improve with pain medication adjustment and further diuresis (4) Peripheral arterial disease: Plan: PAD with CAD bilateral LE angiogram 08/06 with stent to RT External iliac and angioplasty with VIOLET to RT SFA - continue daily baby aspirin, high intensity statin; Plavix x 1 month (until 09/07) - consulted Dr. Tolbert for vascular management - repeat noninvasive vascular testing in 2 weeks - plan for LT SFA intervention as outpatient (5) Persistent atrial fibrillation: Plan: Chronic history of tachybradycardia syndrome and paroxysmal atrial fibrillation on Eliquis - Cardiology following - will need outpatient follow-up with electrophysiology to discuss pacemaker for tachybradycardia syndrome - not a candidate for pacemaker at this time given wounds - sinus bradycardia on admission -> converted to a fib with RVR (HR up to 180) 08/04 -> back into sinus bradycardia 0937 08/04 - thyroid panel showing hypothyroidism; possibly secondary to amiodarone use vs overmedication with methimazole - Continue Eliquis - discontinued metoprolol on admission - discussed with cardiology, restarted patient on 100 mg amiodarone (200 mg at home - lowered dose due to bradycardia) - monitor thyroid function and transaminase levels while on amiodarone (repeat labs 08/15) (6) Nausea & vomiting: Plan: nausea every morning due to taking medications on empty stomach and may be due to morphine use? - CT of abd/pelv on admission showed no acute concerns, ascites - encourage food intake in AM (7) Diabetes mellitus type 2 in obese: Plan: history of type 2 diabetes with diabetic foot ulcers - Diabetic diet - Hold home Januvia - A1c 5.7 - NovoLog discontinued 08/03 as patient needing minimal insulin and hypoglycemic at times - glucose stable (8) Hyperthyroidism: Plan: - She takes methimazole and amiodarone chronically - Thyroid function on admission showing hypothyroidism; TSH 9.3, T3 1.83 - continue to hold methimazole - resumed amiodarone at lower dose - follow TSH in 2 weeks (repeat 08/15) (9) Anemia: Plan: appears to be chronic - Hypochromic microcytic anemia - Iron panel and ferritin level confirm iron deficiency anemia - iron supplement started 08/03 but with constipation and nausea, discontinued 08/05 - IV Venofer given 08/08 Plan Pressure ulcers of right and left buttock, stage 3 - wound care following Chronic stable diagnoses: Depression continue sertraline Hypocalcemia - continue vitamin D and calcium supplement HTN - discontinued metoprolol, Will continue with IV Lasix VTE ppx: Eliquis Diet: heart healthy, diabetes, fluid restricted diet Code status: full Dispo: PCU/telemetry; awaiting surgical cultures, possible amputation, will need inpt rehab Admission and Anticipated Discharge Date Admission Date: July 31, 2024 Subjective 69 yo female is still undecided about surgery. Review of Systems Review of Systems: All systems reviewed & are unremarkable except as noted in HPI & below Physical Exam Physical Exam: The patient is alert and oriented 3, well developed and well nourished, normocephalic and atraumatic, in no acute distress. Non-toxic appearing. HEENT- EOMI, mucous membranes moist. Hearing grossly intact. chest: not using accessory muscles to breath. Abd: distended. Extremities- no clubbing, cyanosis. +1 lower extremity edema. Left foot with surgical dressings. No longer with wound vac. Rheumatologic- decreased range of motion due to pain. Psychiatric- normal affect. Results & Data Results & Data Vital Signs (Past 12 Hours) Vital Signs Temp Pulse Resp BP Pulse Ox O2 Del Method O2 Flow Rate 08/14/24 02:59 36.6 C 53 L 16 120/70 98 Nasal Cannula 08/13/24 23:35 Nasal Cannula 3 08/13/24 22:56 36.3 C L 52 L 16 149/76 H 95 Nasal Cannula PG Care Time/CCT Total # of Minutes Spent Total Time Spent with Patient: Total time spent is greater than 50% in coordination of care (as documented) at patient's floor/unit and/or counseling patient: Coding Level of Care Code 09411 SUB INP/OBS CARE 3/50MIN Diagnoses Diabetic foot infection E11.628; L08.9 Acute on chronic heart failure with preserved ejection fraction (HFpEF) I50.33 Acute hypoxemic respiratory failure J96.01 Peripheral arterial disease I73.9 Persistent atrial fibrillation I48.19 Nausea & vomiting R11.2 Diabetes mellitus type 2 in obese E11.69; E66.9 Hyperthyroidism E05.90 Anemia D64.9
[2024-08-14] MEDS: POTASSIUM CHLORIDE / WTR 10 MEQ/100 ML PLCT IV SCH (13:17)
[2024-08-14] MEDS: OPTIRAY 320 100ml IV ONE (13:47)
--- NOTE | 2024-08-14 14:09 | CT Scan Report ---
ABDOMEN AND PELVIS CT WITH IV CONTRAST CT DOSE: 1141.22 mGy.cm HISTORY: Acute severe abdominal pain with distention severe distention TECHNIQUE: Multiaxial CT images of the abdomen and pelvis were performed following the IV administrat ion of 94 cc of Optiray, A dose lowering technique was utilized adhering to the principles of ALARA. COMPARISON STUDY: 07/31/2024 FINDINGS: Cardiomegaly with coronary artery calcifications. Trace left and small right pleural effusi ons with mild right basilar atelectasis. No pneumoperitoneum. Unremarkable spleen, pancreas and adren al glands. Distended gallbladder. Heterogeneous liver with mild marginal nodularity redemonstrated. N o hepatic mass identified. Patent portal vein. 4 mm nonobstructing calculus of the inferior pole right kidney. No hydronephrosis. Decompressed urina ry bladder with Gould catheter in place. Heterogeneous uterus with subcentimeter pulmonary calcificat ion. Atherosclerosis of the aorta. High-grade stenosis at the origin of the celiac trunk, superior an d inferior mesenteric arteries. Patent right iliac stent graft. No lymphadenopathy. Distal esophageal wall thickening with tiny hiatal hernia. No bowel obstruction. Colonic diverticulosis. No CT evidenc e of acute appendicitis. Large amount of loculated ascites of the lower abdomen and pelvis is unchang ed. Body wall edema. Mild lumbar levoscoliosis. No acute fracture. IMPRESSION: 1. Unchanged appearance of the loculated abdominal pelvic ascites compared to the 07/31/2024 exam. 2. No bowel obstruction or bowel wall thickening. 3. Body wall edema with trace left and small right pleural effusions. 4. Distended gallbladder without cholelithiasis identified. 5. Additional findings as above. ACT 112: Negative or not required by law. The above report was generated using voice recognition software. It may contain grammatical, syntax o r spelling errors. Electronically signed by: Macario Colindres M.D. 08/14/2024 2:06 PM
[2024-08-14] MEDS: ALBUMIN 25% 25 GM/100 ML VIAL IV ONE (15:39)
[2024-08-14] MEDS: PROCHLORPERAZINE 5 MG in SYRINGE 4 ML IV PRN (18:32)
--- NOTE | 2024-08-15 08:40 | Hospitalist Progress Note ---
Date of Service August 14, 2024 Assessment & Plan (1) Diabetic foot infection: Plan: Bilateral foot ulcers with necrosis, osteomyelitis of dorsal right foot wound wound debridement 08/05 and angiogram 08/06 with stents - Mild leukocytosis secondary to recent procedures - afebrile, VSS, blood cultures negative - no signs of systemic infection at this time - Continue IV Tylenol, home oxycodone, and prn morphine - see hypercapnia below; to only use morphine when Tylenol and oxycodone do not relieve pain - Wound cultures showed pseudomonas aeruginosa, Kerstersia gyiorum, and Alcaligenes faecalis - continue Zosyn, ID following as will need prolonged course IV abx - surgical cultures pending; Talus bone pathology pending - Wound care consulted; see images in chart - wound vac to right foot wound 08/06 - Podiatry following - Given no improvement and worsening of right lower extremity despite wound vac, appears patient will require right BKA 3.1% Risk of myocardial infarction or cardiac arrest, intraoperatively or up to 30 days post-op Patient is more agreeable to surgery. I will inform the hospital chief financial officer. Consulted ortho, recommend vascular to be involved. Patient though continued to be undecided despite explaining to her the longer she delays, the more complicated she will get. Consulted vascular for amputation, though patient remians undecided. Hypokalemia: Replenished on 08/13 Abdominal distention: Ordered KUB. ordered miralax. Ordered ct scan of abd/pelvis. reveleaed ascities, unsure of cause. (2) Acute on chronic heart failure with preserved ejection fraction (HFpEF): Plan: With anasarca, ascites, and pulm edema; noncompliant on home diuretic - Last echocardiogram 08/01/24 showed EF 60 to 65%, no motion wall abnormalities, right ventricle mildly dilated, severe pulmonary hypertension, worsening tricuspid regurg - BNP 1480 on admission - Strict I&O monitoring and daily weights - cardiology following - referral to CHF clinic made Hypokalemia; improving - potassium repletion throughout hospital stay; patient with resistance to taking PO K+ - spironolactone increased to 50 mg 08/06 - potassium 40 meq once daily Hypomagnesia - repletion throughout hospital course - With likely contraction alkalosis from intravascular volume depletion, hypoalbuminemia, do not want to further increase Lasix, but rather will give one dose Diamox 250mg IV, follow BMP -continue Boost shakes for improved nutrition - Daily BMP; Mg in AM (3) Acute hypoxemic respiratory failure: Plan: Due to underlying CHF - patient not on oxygen at home - Wean off O2 as tolerated; currently on 2L nasal cannula - elevated pO2 on ABG - nurse attempted to lower flow rate but dropped O2 in mid 80s CO2 retention ; secondary to sedation overdose vs contraction alkalosis with diuresis, possibly component of hypothyroidism - CO2 43 on BMP 08/08; has been increasingly elevated - ABG on 08/08 7.47/56/112 on 2 L O2 which likely reflects her known chronic respiratory acidosis with compensatory metabolic alkalosis compensation along with acute contraction alkalosis -At risk for CO2 retention due to COPD-caution with opioids-morphine may be making her nauseated-switch to Dilaudid and watch for CO2 retention - recommend nocturnal pulse ox at rehab facility and formal out patient sleep study - will likely improve with pain medication adjustment and further diuresis (4) Peripheral arterial disease: Plan: PAD with CAD bilateral LE angiogram 08/06 with stent to RT External iliac and angioplasty with VIOLET to RT SFA - continue daily baby aspirin, high intensity statin; Plavix x 1 month (until 09/07) - consulted Dr. Tolbert for vascular management - repeat noninvasive vascular testing in 2 weeks - plan for LT SFA intervention as outpatient (5) Persistent atrial fibrillation: Plan: Chronic history of tachybradycardia syndrome and paroxysmal atrial fibrillation on Eliquis - Cardiology following - will need outpatient follow-up with electrophysiology to discuss pacemaker for tachybradycardia syndrome - not a candidate for pacemaker at this time given wounds - sinus bradycardia on admission -> converted to a fib with RVR (HR up to 180) 08/04 -> back into sinus bradycardia 0937 08/04 - thyroid panel showing hypothyroidism; possibly secondary to amiodarone use vs overmedication with methimazole - Continue Eliquis - discontinued metoprolol on admission - discussed with cardiology, restarted patient on 100 mg amiodarone (200 mg at home - lowered dose due to bradycardia) - monitor thyroid function and transaminase levels while on amiodarone (repeat labs 08/15) (6) Nausea & vomiting: Plan: nausea every morning due to taking medications on empty stomach and may be due to morphine use? - CT of abd/pelv on admission showed no acute concerns, ascites - encourage food intake in AM (7) Diabetes mellitus type 2 in obese: Plan: history of type 2 diabetes with diabetic foot ulcers - Diabetic diet - Hold home Januvia - A1c 5.7 - NovoLog discontinued 08/03 as patient needing minimal insulin and hypoglycemic at times - glucose stable (8) Hyperthyroidism: Plan: - She takes methimazole and amiodarone chronically - Thyroid function on admission showing hypothyroidism; TSH 9.3, T3 1.83 - continue to hold methimazole - resumed amiodarone at lower dose - follow TSH in 2 weeks (repeat 08/15) (9) Anemia: Plan: appears to be chronic - Hypochromic microcytic anemia - Iron panel and ferritin level confirm iron deficiency anemia - iron supplement started 08/03 but with constipation and nausea, discontinued 08/05 - IV Venofer given 08/08 Plan Pressure ulcers of right and left buttock, stage 3 - wound care following Chronic stable diagnoses: Depression continue sertraline Hypocalcemia - continue vitamin D and calcium supplement HTN - discontinued metoprolol, Will continue with IV Lasix VTE ppx: Eliquis Diet: heart healthy, diabetes, fluid restricted diet Code status: full Dispo: PCU/telemetry; awaiting surgical cultures, possible amputation, will need inpt rehab Admission and Anticipated Discharge Date Admission Date: July 31, 2024 Subjective 69 yo female reports her belly feels tense, and nauseous Review of Systems Review of Systems: All systems reviewed & are unremarkable except as noted in HPI & below Physical Exam Physical Exam: The patient is alert and oriented 3, well developed and well nourished, normocephalic and atraumatic, in no acute distress. Non-toxic appearing. HEENT- EOMI, mucous membranes moist. Hearing grossly intact. chest: not using accessory muscles to breath. Abd: distended, still soft. Extremities- no clubbing, cyanosis. +1 lower extremity edema. Left foot with surgical dressings. No longer with wound vac. Rheumatologic- decreased range of motion due to pain. Psychiatric- normal affect. Results & Data Results & Data Vital Signs (Past 12 Hours) Vital Signs Temp Pulse Pulse Resp BP Pulse Ox O2 Del Method 08/15/24 07:30 36.8 C 69 16 136/94 98 Nasal Cannula 08/15/24 07:23 61 08/15/24 02:59 36.3 C L 59 L 16 108/66 100 Nasal Cannula 08/14/24 22:53 36.6 C 60 16 117/68 100 Nasal Cannula 08/14/24 22:00 59 L PG Care Time/CCT Total # of Minutes Spent Total Time Spent with Patient: Total time spent is greater than 50% in coordination of care (as documented) at patient's floor/unit and/or counseling patient: Coding Level of Care Code 15739 SUB INP/OBS CARE 2/35MIN Diagnoses Diabetic foot infection E11.628; L08.9 Acute on chronic heart failure with preserved ejection fraction (HFpEF) I50.33 Acute hypoxemic respiratory failure J96.01 Peripheral arterial disease I73.9 Persistent atrial fibrillation I48.19 Nausea & vomiting R11.2 Diabetes mellitus type 2 in obese E11.69; E66.9 Hyperthyroidism E05.90 Anemia D64.9
[2024-08-15] MEDS: METOPROLOL TARTRATE 1 MG/ML VIAL IV STA ×2 (13:37→14:14)
[2024-08-15] MEDS ORDERED: 0.2 MICRON FILTER SET 1 EACH IV ONE ×3 (14:25→18:17)
[2024-08-15] MEDS: AMIODARONE / D5W 150 MG/100 ML BAG IV STA (16:18)
[2024-08-15] MEDS: AMIODARONE / D5W 360 MG/200 ML BAG IV SCH ×2 (16:32→20:13)
--- NOTE | 2024-08-15 17:42 | Hospitalist Progress Note ---
Date of Service August 15, 2024 Assessment & Plan (1) Diabetic foot infection: Plan: Bilateral foot ulcers with necrosis, osteomyelitis of dorsal right foot wound wound debridement 08/05 and angiogram 08/06 with stents - Mild leukocytosis secondary to recent procedures - afebrile, VSS, blood cultures negative - no signs of systemic infection at this time - Continue IV Tylenol, home oxycodone, and prn morphine - see hypercapnia below; to only use morphine when Tylenol and oxycodone do not relieve pain - Wound cultures showed pseudomonas aeruginosa, Kerstersia gyiorum, and Alcaligenes faecalis - continue Zosyn, ID following as will need prolonged course IV abx - surgical cultures showed multiple bacteria: senistive to zosyn; Talus bone pathology: osteonecrosis/osteomyelitis - Wound care consulted; see images in chart - wound vac to right foot wound 08/06 - Podiatry following - Given no improvement and worsening of right lower extremity despite wound vac, appears patient will require right BKA. Patient is now agreeabl to procedure. 3.1% Risk of myocardial infarction or cardiac arrest, intraoperatively or up to 30 days post-op Consulted ortho, recommended vascular to be involved. Hypokalemia: Replenished on 08/13 Abdominal distention: Ordered KUB. ordered miralax. Ordered ct scan of abd/pelvis. revealed ascities, unsure of cause. Patient will have paracenthesis on . (2) Acute on chronic heart failure with preserved ejection fraction (HFpEF): Plan: With anasarca, ascites, and pulm edema; noncompliant on home diuretic - Last echocardiogram 08/01/24 showed EF 60 to 65%, no motion wall abnormalities, right ventricle mildly dilated, severe pulmonary hypertension, worsening tricuspid regurg - BNP 1480 on admission - Strict I&O monitoring and daily weights - cardiology following - referral to CHF clinic made Hypokalemia; improving - potassium repletion throughout hospital stay; patient with resistance to taking PO K+ - spironolactone increased to 50 mg 08/06 - potassium 40 meq once daily Hypomagnesia - repletion throughout hospital course - With likely contraction alkalosis from intravascular volume depletion, hypoalbuminemia, do not want to further increase Lasix, but rather will give one dose Diamox 250mg IV, follow BMP -continue Boost shakes for improved nutrition - Daily BMP; Mg in AM (3) Acute hypoxemic respiratory failure: Plan: Due to underlying CHF - patient not on oxygen at home - Wean off O2 as tolerated; currently on 2L nasal cannula - elevated pO2 on ABG - nurse attempted to lower flow rate but dropped O2 in mid 80s CO2 retention ; secondary to sedation overdose vs contraction alkalosis with diuresis, possibly component of hypothyroidism - CO2 43 on BMP 08/08; has been increasingly elevated - ABG on 08/08 7.47/56/112 on 2 L O2 which likely reflects her known chronic respiratory acidosis with compensatory metabolic alkalosis compensation along with acute contraction alkalosis -At risk for CO2 retention due to COPD-caution with opioids-morphine may be making her nauseated-switch to Dilaudid and watch for CO2 retention - recommend nocturnal pulse ox at rehab facility and formal out patient sleep study - will likely improve with pain medication adjustment and further diuresis (4) Peripheral arterial disease: Plan: PAD with CAD bilateral LE angiogram 08/06 with stent to RT External iliac and angioplasty with VIOLET to RT SFA - continue daily baby aspirin, high intensity statin; Plavix x 1 month (until 11/07) - consulted Dr. Tolbert for vascular management - repeat noninvasive vascular testing in 2 weeks - plan for LT SFA intervention as outpatient (5) Persistent atrial fibrillation: Plan: Chronic history of tachybradycardia syndrome and paroxysmal atrial fibrillation on Eliquis - Cardiology following - will need outpatient follow-up with electrophysiology to discuss pacemaker for tachybradycardia syndrome - not a candidate for pacemaker at this time given wounds - sinus bradycardia on admission -> converted to a fib with RVR (HR up to 180) 08/04 -> back into sinus bradycardia 0937 08/04 - thyroid panel showing hypothyroidism; possibly secondary to amiodarone use vs overmedication with methimazole - Continue Eliquis - discontinued metoprolol on admission - discussed with cardiology, restarted patient on 100 mg amiodarone (200 mg at home - lowered dose due to bradycardia) - monitor thyroid function and transaminase levels while on amiodarone (repeat labs 08/15)\ Worsening A fib on 08/15 likely from withholding oral medications due to N/V : metoprolol and amiodarone. concern N/V is due to ascities paracenthesis scheduled for Friday (6) Nausea & vomiting: Plan: nausea every morning due to taking medications on empty stomach and may be due to morphine use? - CT of abd/pelv on admission showed no acute concerns, ascites - encourage food intake in AM -perhaps due to ascities (7) Diabetes mellitus type 2 in obese: Plan: history of type 2 diabetes with diabetic foot ulcers - Diabetic diet - Hold home Januvia - A1c 5.7 - NovoLog discontinued 08/03 as patient needing minimal insulin and hypoglycemic at times - glucose stable (8) Hyperthyroidism: Plan: - She takes methimazole and amiodarone chronically - Thyroid function on admission showing hypothyroidism; TSH 9.3, T3 1.83 - continue to hold methimazole - resumed amiodarone at lower dose - follow TSH in 2 weeks (repeat 08/15) (9) Anemia: Plan: appears to be chronic - Hypochromic microcytic anemia - Iron panel and ferritin level confirm iron deficiency anemia - iron supplement started 08/03 but with constipation and nausea, discontinued 08/05 - IV Venofer given 08/08 Plan Pressure ulcers of right and left buttock, stage 3 - wound care following Chronic stable diagnoses: Depression continue sertraline Hypocalcemia - continue vitamin D and calcium supplement HTN - discontinued metoprolol, Will continue with IV Lasix VTE ppx: Eliquis Diet: heart healthy, diabetes, fluid restricted diet Code status: full Dispo: PCU/telemetry; need paracenthesids/ needs amputation/ c. diff carrier Admission and Anticipated Discharge Date Admission Date: July 31, 2024 Subjective 69 yo reports feeling nauseous. She refused her morning meds. Review of Systems Review of Systems: All systems reviewed & are unremarkable except as noted in HPI & below Physical Exam Physical Exam: The patient is alert and oriented 3, well developed and well nourished, normocephalic and atraumatic, in no acute distress. Non-toxic appearing. HEENT- EOMI, mucous membranes moist. Hearing grossly intact. chest: not using accessory muscles to breath. Irregularly irregular Abd: distended, still soft. Extremities- no clubbing, cyanosis. +1 lower extremity edema. Left foot with surgical dressings. No longer with wound vac. Rheumatologic- decreased range of motion due to pain. Psychiatric- normal affect. Results & Data Results & Data Vital Signs (Past 12 Hours) Vital Signs Temp Pulse Pulse Resp BP BP Pulse Ox 08/15/24 17:15 135 H 16 101/70 97 08/15/24 16:00 36.7 C 145 H 18 117/89 98 08/15/24 14:29 127 H 100/64 08/15/24 14:14 135 H 96/58 L 08/15/24 13:52 131 H 96/58 L 08/15/24 13:37 158 H 103/76 08/15/24 13:00 143 H 08/15/24 11:20 36.6 C 69 16 130/66 99 08/15/24 08:00 08/15/24 07:30 36.8 C 69 16 136/94 98 08/15/24 07:23 61 O2 Del Method O2 Flow Rate 08/15/24 17:15 Nasal Cannula 2 08/15/24 16:00 Nasal Cannula 2 08/15/24 14:29 08/15/24 14:14 08/15/24 13:52 08/15/24 13:37 08/15/24 13:00 08/15/24 11:20 Nasal Cannula 2 08/15/24 08:00 Nasal Cannula 2 08/15/24 07:30 Nasal Cannula 08/15/24 07:23 PG Care Time/CCT Total # of Minutes Spent Total Time Spent with Patient: Total time spent is greater than 50% in coordination of care (as documented) at patient's floor/unit and/or counseling patient: Coding Level of Care Code 53280 SUB INP/OBS CARE 3/50MIN Diagnoses Diabetic foot infection E11.628; L08.9 Acute on chronic heart failure with preserved ejection fraction (HFpEF) I50.33 Acute hypoxemic respiratory failure J96.01 Peripheral arterial disease I73.9 Persistent atrial fibrillation I48.19 Nausea & vomiting R11.2 Diabetes mellitus type 2 in obese E11.69; E66.9 Hyperthyroidism E05.90 Anemia D64.9 Time Spent (min) 55
[2024-08-15 17:52] LABS: Albumin Globulin Ratio 0.8 (0.9-2); Albumin Level 2.8 gm/dl (3.4-5.0); BUN Creatinine Ratio 28.3 (10-20); Calcium 8.5 mg/dl (8.6-10.3); Creatinine Clr Calc Pharmacy 109.5 ml/min; Globulin 3.4 gm/dl (2.5-4.0); Potassium 2.9 mmol/L (3.5-5.1); Total Protein 6.2 gm/dl (6.0-8.3)
[2024-08-15 18:00] LABS: ALC (manual) 0.54 K/uL (1.2-3.4); ANC (manual) 25.67 K/uL (1.4-6.5); Hematocrit (blood only) 38.6 % (37.0-47.0); Lymphocytes # (manual) 0.54 K/uL (1.2-3.4); Lymphocytes % (manual) 2 %; Mean Corpuscular Hemoglobin 25.7 pg (25.0-34.0); Mean Corpuscular Hgb Conc 31.1 g/dL (32.0-36.0); Mean Corpuscular Volume 82.7 fL (80.0-100.0); Mean Platelet Volume 10.6 fL (9.4-12.4); Monocytes # (manual) 0.81 K/uL (0.11-0.59); Monocytes % (manual) 3 %; Neutrophils # (manual) 25.67 K/uL (1.40-6.50); Neutrophils % (manual) 95 %; Platelet Count 400 K/uL (130-400); RBC Morphology Unremarkable; RDW Coefficient of Variation 20.3 % (11.5-14.5); RDW Standard Deviation 59.7 fL (36.4-46.3); Red Blood Count 4.67 M/uL (4.20-5.40); White Blood Count 27.02 K/ul (4.8-10.8)
[2024-08-15] MEDS: AMIODARONE / D5W 360 MG/200 ML BAG IV ONE (18:35)
[2024-08-15] MEDS: POTASSIUM CHLORIDE / WTR 10 MEQ/100 ML PLCT IV SCH (20:23)
[2024-08-15] MEDS: SODIUM CHLORIDE 0.9% 500 ML IV SCH (21:42)
[2024-08-16 03:13] LABS: Cdiff Antigen Positive; Cdiff Toxin A+B Negative Cdiff Toxin (Negative); Cdiff Toxin B Gene (2yr or >) Positive Cdiff Gene (Neg)
[2024-08-16] MEDS ORDERED: LOPERAMIDE HCL 2 MG CAP PO PRN (04:15)
[2024-08-16 08:57] LABS: Albumin Globulin Ratio 0.8 (0.9-2); Albumin Level 2.6 gm/dl (3.4-5.0); BUN Creatinine Ratio 29.4 (10-20); Bilirubin,Total 0.9 mg/dl (0.2-1.0); Calcium 8.5 mg/dl (8.6-10.3); Creatinine Clr Calc Pharmacy 97.5 ml/min; Globulin 3.3 gm/dl (2.5-4.0); Magnesium 1.8 mg/dl (1.7-2.4); Potassium 3.2 mmol/L (3.5-5.1); Total Protein 5.9 gm/dl (6.0-8.3)
[2024-08-16 09:11] LABS: Thyroid Stimulating Hormone 5.185 uIu/ml (0.300-4.500)
[2024-08-16 09:33] LABS: Anisocytosis Present; Basophils # (auto) 0.03 K/uL (0.00-0.20); Basophils % (auto) 0.1 %; Eosinophils # (auto) 0.08 K/uL (0.00-0.50); Eosinophils % (auto) 0.4 %; Hematocrit (blood only) 36.9 % (37.0-47.0); Hemoglobin 11.3 g/dl (12.0-16.0); Hypochromasia Present; Immature Granulocytes # (auto) 0.12 K/uL (0.01-0.20); Immature Granulocytes % (auto) 0.5 %; Lymphocytes % (auto) 2.6 %; Mean Corpuscular Hemoglobin 25.6 pg (25.0-34.0); Mean Corpuscular Hgb Conc 30.6 g/dL (32.0-36.0); Mean Corpuscular Volume 83.5 fL (80.0-100.0); Mean Platelet Volume 10.6 fL (9.4-12.4); Monocytes # (auto) 1.34 K/uL (0.11-0.59); Monocytes % (auto) 5.9 %; Neutrophils # (auto) 20.51 K/uL (1.40-6.50); Neutrophils % (auto) 90.5 %; Platelet Count 387 K/uL (130-400); Poikilocytosis Present; RDW Coefficient of Variation 20.6 % (11.5-14.5); Red Blood Count 4.42 M/uL (4.20-5.40); Toxic Vacuolation 1+; White Blood Count 22.68 K/ul (4.8-10.8)
--- NOTE | 2024-08-16 12:06 | Ultrasound Report ---
US arterial duplex LE RT HISTORY: 69 years-old Female reassess blood flow post vascular intervention peripheral arterial dise ase. History of left superficial femoral arterial stenosis. COMPARISON: 08/03/2024 TECHNIQUE: Multiple real-time sonography images of the right lower extremity arterial structures were obtained assessing grayscale appearance, color and spectral flow FINDINGS: Limited study secondary to patient inability to tolerate the exam. Biphasic waveforms in the common f emoral and superficial femoral arteries. Monophasic morphology from the profunda femoris artery. Diff use atherosclerosis. Monophasic and biphasic waveforms in the lower leg. Spectral broadening within t he posterior tibial artery. Subcutaneous edema. No arterial occlusion or high-grade stenosis. Overall increased flow compared to the prior study. IMPRESSION: 1. Monophasic and biphasic waveforms with atherosclerosis. 2. No arterial occlusion or evidence of high-grade stenosis. 3. Nonspecific subcutaneous edema. ACT 112: Negative or not required by law. The above report was generated using voice recognition software. It may contain grammatical, syntax o r spelling errors. Electronically signed by: Macario Colindres M.D. 08/16/2024 12:04 PM
[2024-08-16] MEDS ORDERED: AMIODARONE / D5W 360 MG/200 ML BAG IV SCH (12:20)
--- NOTE | 2024-08-16 12:37 | Hospitalist Progress Note ---
Date of Service August 16, 2024 Assessment & Plan (1) Diabetic foot infection: Plan: Bilateral foot ulcers with necrosis, osteomyelitis of dorsal right foot wound wound debridement 08/05 with podiatry and angiogram 08/06 with stent placed in right external iliac artery and angioplasty to right SFA With ongoing poor wound healing secondary to PAD and poorly controlled diabetes Wound cultures showed Pseudomonas aeruginosa, Kerstersia gyiorum, and Alcaligenes faecalis - continue Zosyn, ID following as will need prolonged course IV abx Surgical cultures from [place] showed low counts mixed probable skin microbiota; [place] bone pathology: osteonecrosis/osteomyelitis Wound care consulted; see images in chart - wound vac to right foot wound 08/06 which is now removed as the wound is not healing Podiatry recommends that given no improvement and worsening of right lower extremity despite wound vac, appears patient will require right BKA. Patient with a 3.1% Risk of myocardial infarction or cardiac arrest, intraoperatively or up to 30 days post-op Consulted ortho, recommended vascular to be involved. Discussed care with vascular-recommended arterial Doppler and MRI to look for osteomyelitis of the leg and foot-ordered on 08/16 Arterial Doppler the right lower extremity does show improved flow from previous but still with slow flow Await MRI results and further vascular surgery input Will likely need to hold Eliquis prior to surgery (2) Acute on chronic heart failure with preserved ejection fraction (HFpEF): Plan: With anasarca, ascites, and pulm edema; noncompliant on home diuretic Echo 08/01/24 showed EF 60 to 65%, no motion wall abnormalities, right ventricle mildly dilated, severe pulmonary hypertension, worsening tricuspid regurg BNP 1480 on admission and was significantly hypervolemic She has been diuresed aggressively throughout her hospital stay with IV Lasix and p.o. spironolactone and her weight is down significantly Paracentesis was ordered for 08/16 but she is on Eliquis and this was canceled- will hold off on paracentesis at this time Continue strict I's and O's, daily weights, low-sodium diet Appreciate cardiology consultation-referral to CHF clinic made for after discharge Continue potassium repletion-she does not like taking oral potassium-have added on spironolactone Continue Boost shakes for improved nutrition (3) Acute hypoxemic respiratory failure: Plan: With some component of chronic hypercapnic respiratory failure based on previous VBG and ABG With hypoxemia due to underlying CHF- patient not on oxygen at home Wean off O2 as tolerated (4) Peripheral arterial disease: Plan: PAD with CAD bilateral LE angiogram 08/06 with stent to RT External iliac and angioplasty with VIOLET to RT SFA continue daily baby aspirin, high intensity statin; Plavix x 1 month (until 09/07) Appreciate vascular medicine management with Dr. Tolbert Repeat arterial Doppler right lower extremity with improved flow in 08/16 Plan for LT SFA intervention as outpatient (5) Persistent atrial fibrillation: Plan: Chronic history of tachybradycardia syndrome and paroxysmal atrial fibrillation on Eliquis Has had rapid atrial fibrillation here and then sinus bradycardia in the 40s and 50s Cardiology following - will need outpatient follow-up with electrophysiology to discuss pacemaker for tachybradycardia syndrome- not a candidate for pacemaker at this time given wounds Thyroid panel showing hypothyroidism; possibly secondary to amiodarone use vs overmedication with methimazole-methimazole is on hold Continue Eliquis Discontinued metoprolol on admission Now back on amiodarone drip since 08/15-discontinue drip and continue amiodarone 200 mg p.o. daily Monitor on telemetry (6) Nausea & vomiting: Plan: Continues to have nausea every morning due to taking medications on empty stomach and may be due to morphine use? 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 Continue antiemetics as needed (7) Diabetes mellitus type 2 in obese: Plan: With a long history of type 2 diabetes with diabetic foot ulcers Holding home Januvia, continue diabetic diet Hemoglobin A1c well-controlled at 5.7% NovoLog discontinued 08/03 as patient needing minimal insulin and hypoglycemic at times - glucose stable (8) Hyperthyroidism: Plan: She takes methimazole and amiodarone chronically On admission, TSH 9.3, T3 1.83 And methimazole was held Repeat TSH 2 weeks later on 08/16 improved down to 5 Continue to hold methimazole and repeat TSH in another 2 weeks (9) Anemia: Plan: appears to be chronic, microcytic anemia, hemoglobin improved at 11.3 Was given IV Venofer 08/08 after iron deficiency confirmed on iron panel She could not tolerate p.o. iron as it caused her vomiting (10) Sacral wound: Plan: Pressure ulcers of right and left buttock, stage 3 - wound care following Offload pressure Plan Chronic stable diagnoses: Depression continue sertraline Hypocalcemia - continue vitamin D and calcium supplement HTN - discontinued metoprolol, Will continue with IV Lasix VTE ppx: Eliquis Diet: heart healthy, diabetes, fluid restricted diet Code status: full Dispo: Continued stay on PCU, awaiting BKA Admission and Anticipated Discharge Date Admission Date: July 31, 2024 Subjective Patient reports ongoing pain in her leg. She is agreeable to an amputation if that is what is recommended. I discussed her case with the vascular surgeon who is awaiting further studies. I discussed her case with the staff genetic counselor who is recommending BKA versus palliative care. Patient converted back to sinus rhythm overnight and remains in sinus bradycardia with rates in the 40s to 50s Physical Exam Constitutional: well developed and + ill appearing (Chronically ill-appearing) Respiratory: normal respiratory effort Auscultation: + diminished lung sounds (At bases bilaterally); no crackles, no rhonchi and no wheezes Cardiovascular: Rate/Rhythm: regular rhythm and + bradycardic Heart Sounds: no murmur Extremities: + edema (Trace to 1+ pitting edema legs bilaterally) Gastrointestinal (Abdomen): Inspection/Auscultation: + abdomen distended (Mild to moderate) and normal bowel sounds Percussion/Palpation: abdomen soft; abdomen nontender and no guarding Skin: Right leg in dressing not removed Psychiatric: A+Ox3, euthymic affect Results & Data Results & Data Vital Signs (Past 12 Hours) Vital Signs Temp Pulse Resp BP Pulse Ox O2 Del Method 08/16/24 11:30 36.7 C 60 18 99/54 L 99 Nasal Cannula 08/16/24 07:00 36.5 C 51 L 20 98/56 L 100 Nasal Cannula 08/16/24 03:02 36.4 C L 55 L 16 101/62 99 Nasal Cannula Laboratory Results CBC, BMP, TSH, magnesium reviewed PG Care Time/CCT Total # of Minutes Spent Total Time Spent with Patient: Total time spent is greater than 50% in coordination of care (as documented) at patient's floor/unit and/or counseling patient: Coding Level of Care Code 10241 SUB INP/OBS CARE 3/50MIN Diagnoses Diabetic foot infection E11.628; L08.9 Acute on chronic heart failure with preserved ejection fraction (HFpEF) I50.33 Acute hypoxemic respiratory failure J96.01 Peripheral arterial disease I73.9 Persistent atrial fibrillation I48.19 Nausea & vomiting R11.2 Diabetes mellitus type 2 in obese E11.69; E66.9 Hyperthyroidism E05.90 Anemia D64.9 Sacral wound S31.000A
[2024-08-16] MEDS: GADOBUTROL 65ML VIAL IV ONE (19:47)
--- NOTE | 2024-08-16 21:32 | Podiatry Progress Note ---
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 - Wound care by nursing continued. - Osteomyelitis further confirmed to dorsal foot wound with pathology. - Will require BKA on right. This limb has not responded to any treatment yet. D/w Dr. De Souza. Working on confirming wishes of patient and coordinating care with specialists. - Wound care is currently keeping wounds as clean as possible, but the limb is non-viable. - Will continue to follow, especially for left foot which is still salvageable Admission and Anticipated Discharge Date Admission Date: July 31, 2024 Subjective Pt seen at bedside. Pain currently controlled; tolerating wound dressings /changes. Still not wearing cushioned heel offloading boots. No new thoughts regarding limb salvage or prison care. Review of Systems Constitutional: no fever, no chills and no fatigue Eyes: no problem reported Ear, Nose, Mouth, Throat: no problem reported Respiratory: no problem reported Cardiovascular: + edema; no problem reported Gastrointestinal: no nausea, no vomiting and no problem reported Genitourinary: no problem reported Musculoskeletal: no problem reported Integumentary: + skin ulcer, + wounds and + erythema Neurologic: + loss of sensation, + numbness and + pa resthesia; no generalized weakness Psychiatric: no problem reported Physical Exam Physical Exam: Lower extemity exam: Diffuse pitting edema and wound formation noted. Advancing necrosis to anterior leg/dorsal foot wound. No viable tissue remaining between these two wounds, with failure of skin/soft tissue bridge between them. TA tendon is mummified. Plantar calcaneal wound is necrotic, worsening necrosis noted to lateral fifth metatarsal as well. New necrotic ulcer to posterior calf, proximal to calcaneal pressure ulcer. No marlen purulence. Wounds are dry, necrotic. Left lower extremity wounds are more granular, but still 50% fibrotic, 10% necrotic, 40% granular to dorsal wound. Plantar heel is 80% fibrotic, 20% granular. Constitutional: WD/WN, vitals as above + ill appearing and + obese; no acute distress Eyes: PERRL, conjunctivae normal, anicteric sclerae ENMT: external ear and nose normal, oropharynx normal Neck: trachea midline, no thyromegaly normal visual inspection Respiratory: normal respiratory effort; no respiratory distress Cardiovascular: Rate/Rhythm: regular rate and regular rhythm Chest (Breasts): Chest: normal inspection of chest Gastrointestinal (Abdomen): Inspection/Auscultation: abdomen normal to inspection Percussion/Palpation: + abdomen tender and abdomen soft Musculoskeletal: no cyanosis or clubbing, extremities motor strength 5/5 Head/Neck/Chest: normocephalic and head atraumatic Extremities: extremities normal to inspection Neurologic: awake; no focal motor deficits Psychiatric: A+Ox3, euthymic affect Results & Data Results & Data Vital Signs (Past 12 Hours) Vital Signs Temp Pulse Pulse Resp BP Pulse Ox O2 Del Method 08/16/24 20:43 36.9 C 57 L 18 112/59 L 92 Nasal Cannula 08/16/24 13:10 56 L 08/16/24 11:30 36.7 C 60 18 99/54 L 99 Nasal Cannula O2 Flow Rate 08/16/24 20:43 4 08/16/24 13:10 08/16/24 11:30
[2024-08-17 06:08] LABS: Hematocrit (blood only) 32.1 % (37.0-47.0); Hemoglobin 10.1 g/dl (12.0-16.0); Mean Corpuscular Hemoglobin 25.3 pg (25.0-34.0); Mean Corpuscular Hgb Conc 31.5 g/dL (32.0-36.0); Mean Corpuscular Volume 80.5 fL (80.0-100.0); Mean Platelet Volume 10.1 fL (9.4-12.4); Platelet Count 306 K/uL (130-400); RDW Coefficient of Variation 20.1 % (11.5-14.5); RDW Standard Deviation 58.1 fL (36.4-46.3); Red Blood Count 3.99 M/uL (4.20-5.40); White Blood Count 14.82 K/ul (4.8-10.8)
[2024-08-17 06:28] LABS: Albumin Globulin Ratio 0.8 (0.9-2); Albumin Level 2.5 gm/dl (3.4-5.0); Anisocytosis Present; BUN Creatinine Ratio 31.9 (10-20); Basophils # (auto) 0.02 K/uL (0.00-0.20); Basophils % (auto) 0.1 %; Bilirubin,Total 0.8 mg/dl (0.2-1.0); Calcium 8.2 mg/dl (8.6-10.3); Creatinine Clr Calc Pharmacy 106.5 ml/min; Eosinophils # (auto) 0.01 K/uL (0.00-0.50); Eosinophils % (auto) 0.1 %; Globulin 3.1 gm/dl (2.5-4.0); Immature Granulocytes # (auto) 0.05 K/uL (0.01-0.20); Immature Granulocytes % (auto) 0.3 %; Lymphocytes # (auto) 0.49 K/uL (1.20-3.40); Lymphocytes % (auto) 3.3 %; Magnesium 1.7 mg/dl (1.7-2.4); Monocytes # (auto) 0.83 K/uL (0.11-0.59); Monocytes % (auto) 5.6 %; Neutrophils # (auto) 13.42 K/uL (1.40-6.50); Neutrophils % (auto) 90.6 %; Polychromasia 1+; Potassium 2.8 mmol/L (3.5-5.1); Total Protein 5.6 gm/dl (6.0-8.3); Toxic Vacuolation 1+
[2024-08-17] MEDS: SPIRONOLACTONE 100 MG TAB PO SCH (08:55)
[2024-08-17] MEDS: POTASSIUM CHLORIDE 20 MEQ/15 ML UDC PO STA (08:57)
--- NOTE | 2024-08-17 09:04 | Communication Note ---
Date of Service: August 17, 2024 Lower extremity arterial study shows biphasic waveforms throughout the lower extremity with fairly good upstroke. By duplex imaging blood flow should be adequate to heal amputation no further vascular intervention is needed at this time. Would consult ortho or gen surg for amputation being no intervention is required on the right lower extremity. Would refer back to vascular medicine of left leg intervention is needed.
[2024-08-17] MEDS: FUROSEMIDE 40 MG TAB PO SCH (09:21)
[2024-08-17] MEDS: POTASSIUM CHLORIDE / WTR 10 MEQ/100 ML PLCT IV SCH (09:25)
--- NOTE | 2024-08-17 11:59 | Hospitalist Progress Note ---
Date of Service August 17, 2024 Assessment & Plan (1) Diabetic foot infection: Plan: Bilateral foot ulcers with necrosis, osteomyelitis of dorsal right foot wound wound debridement 08/05 with podiatry and angiogram 08/06 with stent placed in right external iliac artery and angioplasty to right SFA With ongoing poor wound healing secondary to PAD and poorly controlled diabetes Wound cultures showed Pseudomonas aeruginosa, Kerstersia gyiorum, and Alcaligenes faecalis - continue Zosyn, ID following as will need prolonged course IV abx Surgical cultures from talus showed low counts mixed probable skin microbiota; talus bone pathology: osteonecrosis/osteomyelitis Wound care consulted; see images in chart - wound vac to right foot/leg wound 08/06 which is now removed as the wound is not healing Podiatry recommends that given no improvement and worsening of right lower extremity despite wound vac, appears patient will require right BKA. Patient with a 3.1% Risk of myocardial infarction or cardiac arrest, intraoperatively or up to 30 days post-op Consulted Vascular Surgery-recommended arterial Doppler and MRI to look for osteomyelitis of the leg and foot-Doppler does show improved and adequate flow for healing of BKA as per Vascular. MRI read pending Consult Ortho to see baout right BKA Ok to be weight bearing on left for PT/OT as per my d/w Podiatry Await MRI results Will likely need to hold Eliquis prior to surgery-hold this evening. Would not hold ASA and Plavix due to recent stent placement (2) Acute on chronic heart failure with preserved ejection fraction (HFpEF): Plan: With anasarca, ascites, and pulm edema; noncompliant on home diuretic Echo 08/01/24 showed EF 60 to 65%, no motion wall abnormalities, right ventricle mildly dilated, severe pulmonary hypertension, worsening tricuspid regurg BNP 1480 on admission and was significantly hypervolemic She has been diuresed aggressively throughout her hospital stay with IV Lasix and p.o. spironolactone and her weight is down significantly Paracentesis was ordered for 08/16 but she is on Eliquis and this was canceled- will hold off on paracentesis at this time Continue strict I's and O's, daily weights, low-sodium diet Appreciate cardiology consultation-referral to CHF clinic made for after discharge Continue potassium repletion-she does not like taking oral potassium-have added on spironolactone and will increase ddose to 100mg daily Change IV lasix to lasix 40mg po qAM Add on po liquid KCl supplement, give 1 gram IV magnesium Continue Boost shakes for improved nutrition (3) Acute hypoxemic respiratory failure: Plan: With some component of chronic hypercapnic respiratory failure based on previous VBG and ABG With hypoxemia due to underlying CHF- patient not on oxygen at home Requiring 2L here and drops to 60-70s on RA when she takes off her O2 Wean off O2 as tolerated Continue with diuretics (4) Peripheral arterial disease: Plan: PAD with CAD -bilateral LE angiogram 08/06 with stent to RT External iliac and angioplasty to RT SFA continue daily baby aspirin, high intensity statin; Plavix x 1 month (until 09/07) Appreciate vascular medicine management with Dr. Tolbert Repeat arterial Doppler right lower extremity with improved flow in 08/16 Plan for LT SFA intervention as outpatient (5) Persistent atrial fibrillation: Plan: Chronic history of tachybradycardia syndrome and paroxysmal atrial fibrillation on Eliquis Has had rapid atrial fibrillation here and then sinus bradycardia in the 40s and 50s Cardiology following - will need outpatient follow-up with electrophysiology to discuss pacemaker for tachybradycardia syndrome- not a candidate for pacemaker at this time given wounds TSH shows hypothyroidism; possibly secondary to amiodarone use vs overmedication with methimazole-methimazole is on hold Continue Eliquis Discontinued metoprolol on admission Was briefly back on amiodarone drip 08/15-08/16-->discontinued drip after back in sinus reema and will continue amiodarone 200 mg p.o. daily Monitor on telemetry Keep lytes replete (6) Nausea & vomiting: Plan: Continues to have nausea every morning due to taking medications on empty stomach and may be due to morphine use? 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 Continue antiemetics as needed-resume Zofran-QTc was fine (7) Diabetes mellitus type 2 in obese: Plan: With a long history of type 2 diabetes with diabetic foot ulcers Holding home Januvia, discontinue diabetic diet to liberalize for improved nutrition Hemoglobin A1c well-controlled at 5.7% NovoLog discontinued 08/03 as patient needing minimal insulin and hypoglycemic at times - glucose stable/normal-will dc accuchecks (8) Hyperthyroidism: Plan: She takes methimazole and amiodarone chronically On admission, TSH 9.3, T3 1.83 And methimazole was held Repeat TSH 2 weeks later on 08/16 improved down to 5 Continue to hold methimazole and repeat TSH in another 2 weeks (9) Anemia: Plan: appears to be chronic, microcytic anemia, hemoglobin fairly stable at 10-11 Was given IV Venofer 08/08 after iron deficiency confirmed on iron panel She could not tolerate p.o. iron as it caused her vomiting (10) Sacral wound: Plan: Pressure ulcers of right and left buttock, stage 3 - wound care following Offload pressure With frequent diarrhea--> stopped all laxatives. C. diff gene positive and toxin negative. Avoid Imodium. Add cholestyramine powder bid If not improving, will recheck C. diff again on 08/19 Plan Chronic stable diagnoses: Depression continue sertraline Hypocalcemia - stop vitamin D and calcium supplement as she is refusing to take it HTN - discontinued metoprolol, continue with po Lasix VTE ppx: Eliquis now on hols for BKA, may start Lovenox or heparin gtt depending on timing of BKA Diet: change to low sodium, get rid of heart healthy and diabetes Code status: full Dispo: Continued stay on PCU, awaiting BKA Admission and Anticipated Discharge Date Admission Date: July 31, 2024 Subjective Pt reports pain in her bottom from her wounds. She is eating. Still having frequent loose bowel movements. Was having some pain in her right rib but thinks it's better now SHe is sitting up at the edge of the bed for the first time in weeks Tele with SB rates 50-60s POx frequently dips to the 60-70s when she takes off her oxygen. Physical Exam Constitutional: well developed and + ill appearing (Chronically ill-appearing) Respiratory: normal respiratory effort Auscultation: + diminished lung sounds (At bases bilaterally); no crackles, no rhonchi and no wheezes Cardiovascular: Rate/Rhythm: regular rhythm and + bradycardic Heart Sounds: no murmur Extremities: + edema (Trace to 1+ pitting edema legs bilaterally) Gastrointestinal (Abdomen): Inspection/Auscultation: + abdomen distended (Mild to moderate) and normal bowel sounds Percussion/Palpation: abdomen soft; abdomen nontender and no guarding Psychiatric: A+Ox3, euthymic affect Results & Data Results & Data Vital Signs (Past 12 Hours) Vital Signs Temp Pulse Pulse Resp BP Pulse Ox O2 Del Method 08/17/24 09:00 Nasal Cannula 08/17/24 07:49 36.7 C 52 L 19 120/52 L 98 Nasal Cannula 08/17/24 03:20 36.6 C 57 L 18 138/67 99 Nasal Cannula 08/17/24 00:45 53 L O2 Flow Rate 08/17/24 09:00 2 08/17/24 07:49 2.0 08/17/24 03:20 4 08/17/24 00:45 Laboratory Results CBC, BMP, magnesium, LFTs reviewed PG Care Time/CCT Total # of Minutes Spent Total Time Spent with Patient: Total time spent is greater than 50% in coordination of care (as documented) at patient's floor/unit and/or counseling patient: Coding Level of Care Code 72959 SUB INP/OBS CARE 2/35MIN Diagnoses Diabetic foot infection E11.628; L08.9 Acute on chronic heart failure with preserved ejection fraction (HFpEF) I50.33 Acute hypoxemic respiratory failure J96.01 Peripheral arterial disease I73.9 Persistent atrial fibrillation I48.19 Nausea & vomiting R11.2 Diabetes mellitus type 2 in obese E11.69; E66.9 Hyperthyroidism E05.90 Anemia D64.9 Sacral wound S31.000A
[2024-08-17] MEDS ORDERED: ACETAMINOPHEN 500 MG TAB PO PRN (12:13)
[2024-08-17] MEDS: ALUMINUM/MAGNESIUM SUSP 30 ML UDC PO STA (13:29)
[2024-08-17] MEDS: COLESTIPOL HCL 1 GM TAB PO SCH (13:29)
[2024-08-17] MEDS: MAGNESIUM SULFATE / D5W 1 GM/100 ML BAG IV ONE (13:34)
[2024-08-17] MEDS: CHOLESTYRAMINE LIGHT 4 GM PKT PO SCH (13:37)
--- NOTE | 2024-08-17 13:53 | Magnetic Resonance Report ---
Exam(s): MRI EXTREMITY W/WO Contrast IV Amt: 7ml gadavist EXAM: MR Right Lower Extremity Without and With Intravenous Contrast CLINICAL HISTORY: Reason for exam: assess for OM leg/foot. TECHNIQUE: Multiplanar magnetic resonance images of the right lower extremity without and with intravenous contrast. CONTRAST: Patient received 7ml gadavist of IV contrast COMPARISON: No relevant prior studies available. FINDINGS: Bones/joints: Unremarkable. No acute fracture. No dislocation. Soft tissues: There is subcutaneous tissue edema identified in the right leg. There is mild intramuscular edema seen in the tibialis anterior muscle. IMPRESSION: 1. No evidence of osteomyelitis 2. Soft tissue and anterior compartment intramuscular edema, consistent with cellulitis and myositis Electronically signed by: Grupo Neely MD 08/16/24 21:41 PM
--- NOTE | 2024-08-17 16:25 | Orthopedic Consultation ---
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 She had been in her recliner for at least 24 hours and was covered in urine and feces at the time of her initial EMS evaluation. Since that time that she has been admitted, it was discovered that she had significant wounds to her bilateral lower extremities. She was taken to the operating room with interventional cardiology for attempted revascularization, she has been taken the operating room for debridement and wound VAC placement by podiatry, unfortunately none of these efforts have worked with regards to her right leg, and as such orthopedics was consulted for consideration of a below-knee amputation. Per interventional cardiology, she had a right External iliac angioplasty with VIOLET to her right SFA. Following this, she had "good angiographic result with 3 vessel distal runoff to the foot." This was done on 08/06/24. Since that time, unfortunately, she has not had any significant improvement in her wounds. She has actually had worsening. Podiatry, vascular surgery, and wound care all believe an amputation is necessary. I attempted to have a in-depth discussion with the patient at bedside today, however she seemed somewhat unwilling to hear what I had to say. After discussion with Dr. De Souza, the patient's attending provider, the patient was much more with it and accepting of the potential need for below-knee amputation. I did explain to the patient's that an amputation in general is a life altering surgery, and for this patient who is 69 and has very low functionality, she is unlikely to ever walk again after an amputation. And amputation of her right lower extremity is strictly for source control of infection, and to remove any potential future sources of infection distally within the lower extremity. I did explain that there is a very high risk of incomplete healing of amputation wound due to her severe peripheral vascular disease, however per vascular surgery, they do believe that she has the ability to heal a below-knee amputation. I called and left a message for Sudhakar Hall the hydrate control tender, I would like the patient to meet with him prior to proceeding with surgical intervention. Considering the patient is not currently floridly septic, we do have some time to plan for an upper amputation time. I suspect the earliest this can be done would be on 07/20/2024. I would continue local wound care for the patient's left side, and she may require revascularization on this side as well to heal these wounds. Considering how functionally impairing a single below-knee amputation is, bilateral below-knee amputations would be a potentially life-changing surgery for her. It is of the utmost importance that these wounds on the left side get healed. I called and discussed all the above with the patient's attending physician, Dr. De Souza. As of now, we will tentatively plan for right lower extremity below-knee amputation on 08/20/2024 provided the patient is able to agree to this and she is able to see the hydrate control tender to have an IPOP fitted. History of Present Illness Reason for Consultation: right leg wounds Requesting Physician: Dr De Souza Attending Physician: Crystal De Souza MD History of Present Illness This is a 69-year-old female who has been admitted for about 2.5 weeks at this point. She and her are both exceedingly poor historians, so the history has been gathered from extensive chart review of: H&P notes, progress notes, and consultation notes from cardiology, pulmonology. I also discussed the case with the attending physician, Dr. De Souza. In summation, she began to develop abdominal pain, nausea and vomiting 07/31/24 and called the EMS who brought the patient to the emergency department for assessment. EMS reports that when they came to her residence, she was found in her recliner, covered in urine and feces. She had recently been admitted to [facility], on July 26, however, reportedly left AGAINST MEDICAL ADVICE due to being dissatisfied with the care she was receiving there. Her past medical history includes diabetic foot infection, bilateral lower extremity cellulitis, hypertension, CAD, persistent atrial fibrillation, significant bradycardia, dyslipidemia, depression with anxiety, chronic respiratory failure with hypoxia, diabetes mellitus type 2, hyperparathyroidism, long-term anticoagulant use, and history of atrial fibrillation with RVR. During the course of her hospitalization, she has been seen by wound care, podiatry, interventional cardiology, vascular surgery. She has had debridement of her foot wounds, she had a wound VAC placed on the right ankle, she even had an attempted revascularization of her right lower extremity by Dr. Tolbert during the course of her hospitalization, has been deemed by podiatry, vascular surgery, and interventional cardiology that the blood delivery to her right lower extremity is so severely compromised that she will not heal the wounds and would benefit most from an amputation. Due to the above, orthopedics was consulted. On my evaluation, the patient tells me that she was walking prior to her admission at [facility]. She notes that the wound on her ankle started when she was admitted to [facility] because of the way that her wounds were dressed. Allergies Allergy/AdvReac Type Severity Reaction Status Date / Time ciprofloxacin [Cipro] Allergy Mild SHORTNESS Verified 07/31/24 20:15 OF BREATH miconazole Allergy Mild Rash Verified 07/31/24 20:15 empagliflozin Allergy Unknown Unknown Verified 07/31/24 20:15 [From Jardiance] metformin Allergy Unknown Unknown Verified 07/31/24 20:15 Home Medications Medication Instructions Recorded Confirmed Type methimazole 10 mg tablet 10 mg PO QAM 07/20/22 07/31/24 History sitagliptin phosphate 100 mg 100 mg PO QDB 07/20/22 07/31/24 History tablet (Januvia) metoprolol succinate 25 mg 25 mg PO BID #60 tabs 09/04/22 07/31/24 Rx tablet,extended release 24 hr amiodarone 200 mg tablet 200 mg PO QAM 07/31/24 07/31/24 History apixaban 5 mg tablet (Eliquis) 5 mg PO QAM 07/31/24 07/31/24 History aspirin 81 mg tablet,delayed 81 mg PO QAM 07/31/24 07/31/24 History release furosemide 40 mg tablet 40 mg PO BID 07/31/24 07/31/24 History oxycodone 10 mg tablet 10 mg PO Q4 PRN Pain 07/31/24 07/31/24 History pantoprazole 40 mg tablet,delayed 40 mg PO QAM 07/31/24 07/31/24 History release potassium chloride 20 mEq 20 meq PO QAM 07/31/24 07/31/24 History tablet,extended release(part/cryst) (Klor-Con M) sertraline 50 mg tablet (Zoloft) 50 mg PO DAILY PRN USES FOR ANXIETY 07/31/24 07/31/24 History tiotropium bromide 1.25 2 puff inhalation DAILY PRN 07/31/24 07/31/24 History mcg/actuation mist for inhalation Shortness Of Breath (Spiriva Respimat) Patient History Surgical History No pertinent past surgical history Social History Smoking Status: Former smoker Tobacco Type: Cigarettes Second Hand Exposure: No; Hx Alcohol Use: No Hx Substance Use: No Preferred Language: Yemeni Communication Ability: Effective Director Search Required: No Beliefs That Will Affect Care: None marital status: Single Current Living Situation: Significant Other Current Living Situation Comment: Lives at home with Cody Feels Safe at Home: Yes Assistive Devices: Mechanical Lift Review of Systems 2 Review of Systems: Unable to be obtained due to patient's inability to participate Physical Exam 2 Physical Exam: General: Oriented only to person and place. MSK: RIGHT FOOT: Patient has a wound anteriorly on her right ankle with exposed muscle. There is significant necrosis surrounding the wound. There is also a necrotic wound on the patient's heel. There is a fibrinous exudate noted anteriorly. No significant malodor noted. Pulses not palpable. Severe equinus contracture. LEFT FOOT: The patient's left foot is without as severe wounds as the right side. She has some evidence of necrosis of the edges of the wounds without the full-thickness appearance as there is present on the right side. No significant malodor present. No pulse palpable. Severe equinus contracture. Results & Data Vital Signs (Past 12 Hours) Vital Signs Temp Pulse Pulse Resp BP Pulse Ox O2 Del Method 08/17/24 15:39 36.9 C 53 L 18 115/55 L 91 Nasal Cannula 08/17/24 13:00 55 L 08/17/24 09:00 Nasal Cannula 08/17/24 07:49 36.7 C 52 L 19 120/52 L 98 Nasal Cannula 08/17/24 05:40 51 L O2 Flow Rate 08/17/24 15:39 2.0 08/17/24 13:00 08/17/24 09:00 2 08/17/24 07:49 2.0 08/17/24 05:40 Diagnostic Findings Right ankle XR (07/31), Right leg MRI (08/16), right foot MRI (08/16) all personally interpreted and reviewed. The patient's imaging findings are not consistent with acute osteomyelitis, but there is severe soft tissue cellulitis and destruction noted anteriorly over her ankle. On the patient's tib/fib MRI there is an area of T2 hyperintensity within the proximal tibial metaphysis that is somewhat strange and not reported on. I do not appreciate any soft tissue abnormalities in this area.
--- NOTE | 2024-08-17 17:10 | XRay Report ---
INDICATION: Leg pain. TECHNIQUE: 2 views of the right tibia/fibula. COMPARISON: No relevant priors. FINDINGS: No acute fracture or dislocation. No lytic or blastic bony lesions seen.. No evidence of cortical erosion. Soft tissue swelling. No soft tissue gas or foreign body. IMPRESSION: Soft tissue swelling without acute osseous abnormality evident. Electronically signed by Simone Hall 08-17-2024 5:10 PM
--- NOTE | 2024-08-17 17:16 | Magnetic Resonance Report ---
Exam(s): MRI RIGHT FOOT W/WO Contrast IV Amt: 7ml gadavist EXAM: MR Right Lower Extremity Without and With Intravenous Contrast, Foot CLINICAL HISTORY: Reason for exam: assess for OM leg/foot. TECHNIQUE: Multiplanar magnetic resonance images of the right foot without and with intravenous contrast. CONTRAST: Patient received 7ml gadavist of IV contrast COMPARISON: No relevant prior studies available. FINDINGS: Bones/joints: There is bone marrow edema seen at the base of the fifth metatarsal. No acute fracture. Soft tissues: There is soft tissue defect seen on the lateral aspect of the fifth metatarsal base. There is extensive soft tissue edema seen in the foot. IMPRESSION: Findings are consistent with osteomyelitis at the base of the fifth metatarsal with overlying soft tissue ulcer Electronically signed by: Grupo Neely MD 08/16/24 21:47 PM
[2024-08-17] MEDS: ENOXAPARIN 80 MG/0.8 ML SYR SQ SCH (20:30)
[2024-08-17] MEDS ORDERED: ENOXAPARIN 1 MG/KG SQ SCH (21:00)
[2024-08-18 06:58] LABS: Basophils # (auto) 0.03 K/uL (0.00-0.20); Basophils % (auto) 0.3 %; Eosinophils # (auto) 0.17 K/uL (0.00-0.50); Eosinophils % (auto) 1.8 %; Hematocrit (blood only) 30.9 % (37.0-47.0); Hemoglobin 9.6 g/dl (12.0-16.0); Immature Granulocytes # (auto) 0.06 K/uL (0.01-0.20); Immature Granulocytes % (auto) 0.6 %; Lymphocytes # (auto) 0.55 K/uL (1.20-3.40); Lymphocytes % (auto) 5.9 %; Mean Corpuscular Hemoglobin 25.8 pg (25.0-34.0); Mean Corpuscular Hgb Conc 31.1 g/dL (32.0-36.0); Mean Corpuscular Volume 83.1 fL (80.0-100.0); Mean Platelet Volume 10.5 fL (9.4-12.4); Monocytes # (auto) 0.62 K/uL (0.11-0.59); Monocytes % (auto) 6.7 %; Neutrophils # (auto) 7.88 K/uL (1.40-6.50); Neutrophils % (auto) 84.7 %; Platelet Count 298 K/uL (130-400); RDW Coefficient of Variation 19.7 % (11.5-14.5); RDW Standard Deviation 59.2 fL (36.4-46.3); Red Blood Count 3.72 M/uL (4.20-5.40); White Blood Count 9.31 K/ul (4.8-10.8)
[2024-08-18 07:15] LABS: Creatinine Clr Calc Pharmacy 125.1 ml/min; Magnesium 1.9 mg/dl (1.7-2.4); Potassium 2.9 mmol/L (3.5-5.1)
[2024-08-18] MEDS: POTASSIUM CHLORIDE CRTAB 20 MEQ TABCR PO SCH (08:58)
[2024-08-18] MEDS: MAGNESIUM SULFATE / D5W 1 GM/100 ML BAG IV ONE (09:03)
--- NOTE | 2024-08-18 16:22 | Hospitalist Progress Note ---
Date of Service August 18, 2024 Assessment & Plan (1) Diabetic foot infection: Plan: Bilateral foot ulcers with necrosis, osteomyelitis of dorsal right foot wound wound debridement 08/05 with podiatry and angiogram 08/06 with stent placed in right external iliac artery and angioplasty to right SFA With ongoing poor wound healing secondary to PAD and long h/o diabetes Wound cx w/ Pseudomonas aeruginosa, Kerstersia gyiorum, and Alcaligenes faecalis Surgical bone cx from [place] showed low counts mixed probable skin microbiota; talus bone pathology: osteonecrosis/osteomyelitis Blood cultures 07/31 no growth Wound care consulted; see images in chart - wound vac to right foot/leg wound 08/06 which is now removed as the wound is not healing Podiatry recommends that given no improvement and worsening of right lower extremity despite wound vac, appears patient will require right BKA. Consulted Vascular Surgery-recommended arterial Doppler and MRI to look for osteomyelitis of the leg and foot-Doppler does show improved and adequate flow for healing of BKA as per Vascular. MRI foot shows OM at base of fifth MT, no OM in leg Patient with a 3.1% Risk of myocardial infarction or cardiac arrest, intraoperatively or up to 30 days post-op Continue Zosyn, ID following as will need prolonged course IV abx --> however, s/p BKA, can likely stop antibiotics-would reach back out to ID for recommendations after surgery Consult Ortho appreciated--> plan for right BKA on 08/20 Orthotics consulted to assess for prothesis after BKA Ok to be weight bearing on left for PT/OT as per my d/w Podiatry Holding Eliquis prior to surgery-last dose AM of 08/17 and on bridging Lovenox- HOLD Lovenox after AM dose on 08/19 Would not hold ASA and Plavix due to recent stent placement-Orthopedics ok with continuing these Continue tylenol, oxycodone, and IV dilaudid prn pain Follow CBC, BMP (2) Acute on chronic heart failure with preserved ejection fraction (HFpEF): Plan: With anasarca, ascites, and pulm edema; noncompliant on home diuretic Echo 08/01/24 showed EF 60 to 65%, no motion wall abnormalities, right ventricle mildly dilated, severe pulmonary hypertension, worsening tricuspid regurg BNP 1480 on admission and was significantly hypervolemic She was diuresed aggressively throughout her hospital stay with IV Lasix and p.o. spironolactone and her weight is down significantly Paracentesis was ordered for 08/16 but she is on Eliquis and this was canceled- will hold off on paracentesis at this time Continue strict I's and O's, daily weights, low-sodium diet Appreciate cardiology consultation-referral to CHF clinic made for after discharge Continue potassium repletion-she does not like taking oral potassium but is now willing to take KCl 40 meq po tid Have added on spironolactone 100mg daily Continue lasix 40mg po qAM Give 1 gram IV magnesium Continue Boost shakes for improved nutrition Follow BMP, Magnesium (3) Acute hypoxemic respiratory failure: Plan: With some component of chronic hypercapnic respiratory failure based on previous VBG and ABG With hypoxemia due to underlying CHF- patient not on oxygen at home Requiring 2L here and drops to 60-70s on RA when she takes off her O2 Wean off O2 as tolerated Continue with diuretics (4) Peripheral arterial disease: Plan: PAD with CAD -bilateral LE angiogram 08/06 with stent to RT External iliac and angioplasty to RT SFA continue daily baby aspirin, high intensity statin; Plavix x 1 month (until 09/07) Appreciate vascular medicine management with Dr. Tolbert Repeat arterial Doppler right lower extremity with improved flow in 08/16 Plan for LT SFA intervention as outpatient (5) Persistent atrial fibrillation: Plan: Chronic history of tachybradycardia syndrome and paroxysmal atrial fibrillation on Eliquis Has had rapid atrial fibrillation here and then sinus bradycardia in the 40s and 50s-currently back in TED rates 110s-120s on 08/18 Typically spontaneously converts to sinus reema Cardiology following - will need outpatient follow-up with electrophysiology to discuss pacemaker for tachybradycardia syndrome- not a candidate for pacemaker at this time given wounds TSH shows hypothyroidism; possibly secondary to amiodarone use vs overmedication with methimazole-methimazole is on hold Continue Eliquis Discontinued metoprolol on admission for profound bradycardia Continue amiodarone 200 mg p.o. daily Monitor on telemetry Keep lytes replete (6) Nausea & vomiting: Plan: Continues to have nausea every morning due to taking medications on empty stomach and may be due to morphine use? 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 Continue antiemetics as needed (7) Diabetes mellitus type 2 in obese: Plan: With a long history of type 2 diabetes with diabetic foot ulcers Holding home Januvia, discontinued diabetic diet to liberalize for improved nutrition Hemoglobin A1c well-controlled at 5.7% NovoLog discontinued 08/03 as patient needing minimal insulin and hypoglycemic at times - glucose stable/normal-dcd accuchecks (8) Hyperthyroidism: Plan: She takes methimazole and amiodarone chronically On admission, TSH 9.3, T3 1.83 And methimazole was held Repeat TSH 2 weeks later on 08/16 improved down to 5 Continue to hold methimazole and repeat TSH in another 2 weeks around 08/30 (9) Anemia: Plan: appears to be chronic, microcytic anemia, hemoglobin fairly stable at 07-23 Was given IV Venofer 08/08 after iron deficiency confirmed on iron panel She could not tolerate p.o. iron as it caused her vomiting (10) Sacral wound: Plan: Pressure ulcers of right and left buttock, stage 3 - wound care following Offload pressure With frequent diarrhea--> stopped all laxatives. C. diff gene positive and toxin negative. Avoid Imodium. Added cholestyramine powder bid If not improving, will recheck C. diff again on 08/19 Seems to be improving Plan Chronic stable diagnoses: Depression continue sertraline Hypocalcemia - stop vitamin D and calcium supplement as she is refusing to take it HTN - discontinued metoprolol, continue with po Lasix GERD-continue PPI VTE ppx: Eliquis now on hold for BKA,on bridging Lovenox and then resume Eliquis post-BKA when ok with Ortho Code status: full Dispo: Continued stay on PCU, awaiting BKA, eventually to rehab once recovered from BKA Admission and Anticipated Discharge Date Admission Date: July 31, 2024 Subjective Pt awake and alert, sitting up in bed. Says she had a lot of pain in her right leg overnight. She understands and is able to verbalize back that she is planning on a BKA of her right leg later this week. SHe is able to tell me why she is having the surgery-to prevent worsening infection. Pt also had some of her usual nausea this AM but not as much and she is taking all of her pills today Denies much diarrhea today Tele with SB and then went into Afib with rates in 110s-120s for most of the day. Asymptomatic with this Physical Exam Constitutional: well developed and + ill appearing (Chronically ill-appearing) Respiratory: normal respiratory effort Auscultation: + diminished lung sounds (At bases bilaterally); no crackles, no rhonchi and no wheezes Cardiovascular: Rate/Rhythm: + tachycardic and + irregularly irregular Heart Sounds: no murmur Extremities: + edema (Trace to 1+ pitting edema legs bilaterally) Gastrointestinal (Abdomen): Inspection/Auscultation: + abdomen distended (Mild to moderate) and normal bowel sounds Percussion/Palpation: abdomen soft; abdomen nontender and no guarding Musculoskeletal: legs dressed over wounds, not removed. pictures from Ortho reviewed Psychiatric: A+Ox3, euthymic affect Results & Data Results & Data Vital Signs (Past 12 Hours) Vital Signs Temp Pulse Pulse Resp BP Pulse Ox O2 Del Method 08/18/24 14:56 36.5 C 107 H 16 127/78 93 Nasal Cannula 08/18/24 12:00 36.7 C 110 H 17 105/75 96 Nasal Cannula 08/18/24 07:00 57 L O2 Flow Rate 08/18/24 14:56 2 08/18/24 12:00 2.0 08/18/24 07:00 Laboratory Results CBC, BMP, magnesium reviewed PG Care Time/CCT Total # of Minutes Spent Total Time Spent with Patient: Total time spent is greater than 50% in coordination of care (as documented) at patient's floor/unit and/or counseling patient: Coding Level of Care Code 69901 SUB INP/OBS CARE 2/35MIN Diagnoses Diabetic foot infection E11.628; L08.9 Acute on chronic heart failure with preserved ejection fraction (HFpEF) I50.33 Acute hypoxemic respiratory failure J96.01 Peripheral arterial disease I73.9 Persistent atrial fibrillation I48.19 Nausea & vomiting R11.2 Diabetes mellitus type 2 in obese E11.69; E66.9 Hyperthyroidism E05.90 Anemia D64.9 Sacral wound S31.000A
--- NOTE | 2024-08-18 19:07 | Orthopedic Progress Note ---
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 It was discovered that she had significant wounds to her bilateral lower extremities. She was taken to the operating room with interventional cardiology for attempted revascularization, she has been taken the operating room for debridement and wound VAC placement by podiatry, unfortunately none of these efforts have worked with regards to her right leg, and as such orthopedics was consulted for consideration of a below-knee amputation. As compared to last evening, patient is much more alert and attentive and she was oriented to person place and time. She was much more participatory in the discussion about her right lower extremity. I did explain to the patient that an amputation is a life altering surgery, and for her who is 69,has very low functionality, and hasnt recently ambulated, she is unlikely to ever walk again after an amputation. I expressed to her that the best potential outcome for her would be a limb upon which she could stand to pivot/transfer. For her, amputation of her right lower extremity is strictly for source control of infection, and to remove any potential future sources of infection. I did explain that there is a very high risk of incomplete healing of amputation wound due to her severe peripheral vascular disease, however per vascular surgery, they do believe that she has the ability to heal a below-knee amputation. I called and spoke with the tree trimmer who explained that we would be following up with the patient with regards to prosthetic needs. We will plan for right below-knee amputation this 07/20/2024. I explained in great detail of the risks of the surgery to the patient including but not limited to loss of life, DVT, incomplete relief of pain, incomplete healing, infection, need for additional surgery, need for above-knee amputation, issues in the future with prosthetic wear, inability to ever walk again. Patient understands these risks. I made no promises or guarantees to the patient nor did I imply any. She wishes to proceed. Continue local wound care for the patient's bilateral lower extremities pain specific attention to the left side in hopes of getting this healed. I once again explained that for this patient that bilateral below-knee amputations is not a good outcome and this would likely be a near sentence for her due to the functional limitations associated with below-knee amputations. I called and discussed all the above with the patient's attending physician. Admission and Anticipated Discharge Date Admission Date: July 31, 2024 Subjective Patient seen and evaluated at bedside this evening. She is much more with it and able to participate in the exam. She notes that her goal with regards to her right lower extremity is to be able to heal the wounds. She denies any new or worsening wounds. She denies any fevers or chills. She states that she wishes to have an amputation due to the inability to heal the right foot wounds. Review of Systems 2 Review of Systems: Unremarkable unless otherwise stated above Physical Exam 2 Physical Exam: General: Oriented to person place and time. MSK: RIGHT FOOT: Patient has a wound anteriorly on her right ankle with exposed muscle. There is significant necrosis surrounding the wound. There is also a necrotic wound on the patient's heel. There is a fibrinous exudate noted anteriorly. No significant malodor noted. Pulses not palpable. Severe equinus contracture. LEFT FOOT: The patient's left foot is without as severe wounds as the right side. She has some evidence of necrosis of the edges of the wounds without the full-thickness appearance as there is present on the right side. No significant malodor present. No pulse palpable. Severe equinus contracture. Results & Data Vital Signs (Past 12 Hours) Vital Signs Temp Pulse Pulse Resp BP Pulse Ox O2 Del Method 08/18/24 14:56 36.5 C 107 H 16 127/78 93 Nasal Cannula 08/18/24 12:00 36.7 C 110 H 17 105/75 96 Nasal Cannula 08/18/24 07:00 57 L O2 Flow Rate 08/18/24 14:56 2 08/18/24 12:00 2.0 08/18/24 07:00 Diagnostic Findings X-rays right tib-fib obtained yesterday were personally interpreted and reviewed. These demonstrate no proximal tibia/fibula hardware. No evidence of proximal bone abnormality.
[2024-08-19] MEDS: oxyCODONE HCL IR 5 MG TAB (IMMEDIATE RELEASE) PO PRN (03:30)
[2024-08-19 07:09] LABS: Basophils # (auto) 0.04 K/uL (0.00-0.20); Basophils % (auto) 0.5 %; Eosinophils # (auto) 0.16 K/uL (0.00-0.50); Hematocrit (blood only) 29.3 % (37.0-47.0); Hemoglobin 9.2 g/dl (12.0-16.0); Immature Granulocytes # (auto) 0.04 K/uL (0.01-0.20); Immature Granulocytes % (auto) 0.5 %; Lymphocytes # (auto) 0.57 K/uL (1.20-3.40); Lymphocytes % (auto) 7.2 %; Mean Corpuscular Hemoglobin 25.5 pg (25.0-34.0); Mean Corpuscular Hgb Conc 31.4 g/dL (32.0-36.0); Mean Corpuscular Volume 81.2 fL (80.0-100.0); Monocytes # (auto) 0.68 K/uL (0.11-0.59); Monocytes % (auto) 8.6 %; Neutrophils # (auto) 6.43 K/uL (1.40-6.50); Neutrophils % (auto) 81.2 %; Platelet Count 305 K/uL (130-400); RDW Coefficient of Variation 19.6 % (11.5-14.5); RDW Standard Deviation 58.1 fL (36.4-46.3); Red Blood Count 3.61 M/uL (4.20-5.40); White Blood Count 7.92 K/ul (4.8-10.8)
[2024-08-19 07:20] LABS: BUN Creatinine Ratio 29.7 (10-20); Magnesium 1.9 mg/dl (1.7-2.4); Potassium 3.3 mmol/L (3.5-5.1)
--- NOTE | 2024-08-19 11:49 | Hospitalist Progress Note ---
Date of Service August 19, 2024 Assessment & Plan (1) Diabetic foot infection: Plan: Bilateral foot ulcers with necrosis, osteomyelitis of dorsal right foot wound wound debridement 08/05 with podiatry and angiogram 08/06 with stent placed in right external iliac artery and angioplasty to right SFA With ongoing poor wound healing secondary to PAD and long h/o diabetes Wound cx w/ Pseudomonas aeruginosa, Kerstersia gyiorum, and Alcaligenes faecalis Surgical bone cx from [place] showed low counts mixed probable skin microbiota; [place] bone pathology: osteonecrosis/osteomyelitis Blood cultures 07/31 no growth MRI foot shows OM at base of fifth MT, no OM in leg Continue Zosyn, ID following as will need prolonged course IV abx --> however, s/p BKA, can likely stop antibiotics Consult Ortho appreciated--> plan for right BKA tomorrow on 08/20 Orthotics consulted to assess for prothesis after BKA Ok to be weight bearing on left for PT/OT as per my d/w Podiatry Holding Eliquis prior to surgery-last dose AM of 08/17 and on bridging Lovenox- HOLD Lovenox after AM dose on 08/19 Will not hold ASA and Plavix due to recent stent placement-Orthopedics ok with continuing these Continue tylenol, oxycodone, and IV dilaudid prn pain (2) Acute on chronic heart failure with preserved ejection fraction (HFpEF): Plan: With anasarca, ascites, and pulm edema; noncompliant on home diuretic Echo 08/01/24 showed EF 60 to 65%, no motion wall abnormalities, right ventricle mildly dilated, severe pulmonary hypertension, worsening tricuspid regurg BNP 1480 on admission and was significantly hypervolemic Continue spironolactone 100mg daily Continue lasix 40mg po qAM Follow BMP, Magnesium (3) Acute hypoxemic respiratory failure: Plan: Requiring 2L here and drops to 60-70s on RA when she takes off her O2 Wean off O2 as tolerated Continue with diuretics (4) Peripheral arterial disease: Plan: PAD with CAD -bilateral LE angiogram 08/06 with stent to RT External iliac and angioplasty to RT SFA Continue daily baby aspirin, high intensity statin; Plavix x 1 month (until 09/07) Plan for LT SFA intervention as outpatient (5) Persistent atrial fibrillation: Plan: Chronic history of tachybradycardia syndrome and paroxysmal atrial fibrillation on Eliquis Cardiology following - will need outpatient follow-up with electrophysiology to discuss pacemaker for tachybradycardia syndrome- not a candidate for pacemaker at this time given wounds TSH shows hypothyroidism; possibly secondary to amiodarone use vs overmedication with methimazole-methimazole is on hold Continue Eliquis Continue amiodarone 200 mg p.o. daily (6) Nausea & vomiting: Plan: Continue antiemetics as needed (7) Diabetes mellitus type 2 in obese: Plan: Holding home Januvia, discontinued diabetic diet to liberalize for improved nutrition Hemoglobin A1c well-controlled at 5.7% NovoLog discontinued 08/03 as patient needing minimal insulin and hypoglycemic at times - glucose stable/normal-dcd accuchecks (8) Hyperthyroidism: Plan: Continue to hold methimazole and repeat TSH in another 2 weeks around 08/30 (9) Anemia: Plan: chronic, microcytic anemia, Was given IV Venofer 08/08 after iron deficiency confirmed on iron panel (10) Sacral wound: Plan: Pressure ulcers of right and left buttock, stage 3 - wound care following Offload pressure Plan Chronic stable diagnoses: Depression continue sertraline Hypocalcemia - stop vitamin D and calcium supplement as she is refusing to take it HTN - discontinued metoprolol, continue with po Lasix GERD-continue PPI VTE ppx: Eliquis now on hold for BKA,on bridging Lovenox and then resume Eliquis post-BKA when ok with Ortho Code status: full Dispo: Continued stay on PCU, awaiting BKA, eventually to rehab once recovered from BKA Admission and Anticipated Discharge Date Admission Date: July 31, 2024 Subjective Pt laying comfortably in bed with significant other by bedside. She is ready for BKA tomorrow and has no questions at this time. Review of Systems Review of Systems: CONST: Negative for fever, body aches and chills. HENT: Negative for neck pain/stiffness, headache, congestion, sore throat, swelling. EYES: Negative for discharge/pain or vision changes. RESP: Negative for cough/hemoptysis and shortness of breath. CV: Negative chest pain, difficulty breathing, palpitations. ABD: Negative pain, nausea, vomiting. : Negative increase frequency, dysuria, blood in urine or stool. MUSC: Negative for muscle aches, edema. SKIN: Negative rash, lesions/sores. NEURO: Negative headache, dizziness, weakness. Physical Exam Physical Exam: GENERAL APPEARANCE NAD, activity normal for age, well developed/ well nourished, no cyanosis, pallor, or diaphoresis. EYES lids/conjunctiva normal. EARS/NOSE/THROAT Mucous membranes moist, nares normal, lips/teeth normal uvula midline without oral pharyngeal erythema, exudate or swelling TMs normal bilaterally. No lymphangitis/lymphedema. HEAD/NECK normocephalic atraumatic, no facial trauma, neck is supple. RESPIRATORY respiratory effort normal, speaks in full sentences, no tripod position, no accessory muscle use. Lungs clear to auscultation without rhonchi, wheezes, rales CARDIAC Regular rate and rhythm, no edema. ABDOMINAL Soft, ND/NT. No evidence of fluid wave. No pulsatile masses on exam, rebound tenderness, Ryan sign or pain over Mcburney's point. MUSCLES/EXTREMITIES No abnormal range of motion, no swelling. Right leg with wrap. SKIN Warm, pink and dry. No rashes, dermatoses, petechiae or lesions. NEUROLOGICAL Speech is clear and appropriate. Normal level of consciousness. Gait and coordination are normal. 5/5 strength in all extremities. PSYCH Normal mood and affect. Judgement/competence is appropriate Results & Data Results & Data Vital Signs (Past 12 Hours) Vital Signs Temp Pulse Resp BP Pulse Ox O2 Del Method O2 Flow Rate 08/19/24 11:31 36.6 C 59 L 16 109/48 L 90 Nasal Cannula 2 08/19/24 08:00 37.3 C 59 L 18 113/55 L 90 Nasal Cannula 2 08/19/24 03:10 36.9 C 60 18 113/55 L 93 Nasal Cannula 2 PG Care Time/CCT Total # of Minutes Spent Total Time Spent with Patient: Total time spent is greater than 50% in coordination of care (as documented) at patient's floor/unit and/or counseling patient: Coding Level of Care Code 83812 SUB INP/OBS CARE 2/35MIN Diagnoses Diabetic foot infection E11.628; L08.9 Acute on chronic heart failure with preserved ejection fraction (HFpEF) I50.33 Acute hypoxemic respiratory failure J96.01 Peripheral arterial disease I73.9 Persistent atrial fibrillation I48.19 Nausea & vomiting R11.2 Diabetes mellitus type 2 in obese E11.69; E66.9 Hyperthyroidism E05.90 Anemia D64.9 Sacral wound S31.000A
--- NOTE | 2024-08-19 18:20 | XRay Report ---
EXAM: Radiograph of the Abdomen 1 View INDICATION: Distention. TECHNIQUE: Frontal supine view of the abdomen/pelvis. COMPARISON: 08/14/2024 FINDINGS: Limitations: None. Lower thorax: Mild atelectasis in the lung bases. Gastrointestinal tract: Moderate formed stool in the right colon is unchanged. There is diffuse colonic irritation to the rectum. No small bowel distention. Organs: Visualized organ shadows appear grossly normal. Bones/joints: Degenerative changes noted throughout the spine. No acute osseous abnormality seen. Soft tissues: No abnormality noted. No radiopaque foreign body noted. Vasculature: Atherosclerotic calcification of the aorta and branches. No aneurysm. IMPRESSION: Stable moderate amounts of right colonic stool. No obstruction or distention. ACT 112: Negative or not required by law. Electronically signed by Barbara Moscoso 08-19-2024 6:20 PM
[2024-08-20 06:42] LABS: Hematocrit (blood only) 29.2 % (37.0-47.0); Hemoglobin 9.1 g/dl (12.0-16.0); Mean Corpuscular Hemoglobin 25.5 pg (25.0-34.0); Mean Corpuscular Hgb Conc 31.2 g/dL (32.0-36.0); Mean Corpuscular Volume 81.8 fL (80.0-100.0); Mean Platelet Volume 10.8 fL (9.4-12.4); Platelet Count 314 K/uL (130-400); RDW Coefficient of Variation 19.6 % (11.5-14.5); RDW Standard Deviation 58.5 fL (36.4-46.3); Red Blood Count 3.57 M/uL (4.20-5.40); White Blood Count 8.52 K/ul (4.8-10.8)
[2024-08-20 06:44] LABS: Creatinine Clr Calc Pharmacy 158.2 ml/min
--- NOTE | 2024-08-20 09:22 | Hospitalist Progress Note ---
Date of Service August 20, 2024 Assessment & Plan (1) Diabetic foot infection: Plan: Bilateral foot ulcers with necrosis, osteomyelitis of dorsal right foot wound wound debridement 08/05 with podiatry and angiogram 08/06 with stent placed in right external iliac artery and angioplasty to right SFA With ongoing poor wound healing secondary to PAD and long h/o diabetes Wound cx w/ Pseudomonas aeruginosa, Kerstersia gyiorum, and Alcaligenes faecalis Surgical bone cx from [place] showed low counts mixed probable skin microbiota; talus bone pathology: osteonecrosis/osteomyelitis Blood cultures 07/31 no growth MRI foot shows OM at base of fifth MT, no OM in leg Continue Zosyn, ID following as will need prolonged course IV abx --> however, s/p BKA, can likely stop antibiotics Consult Ortho appreciated--> plan for right BKA today 08/20 Orthotics consulted to assess for prothesis after BKA Ok to be weight bearing on left for PT/OT as per my d/w Podiatry Will not hold ASA and Plavix due to recent stent placement-Orthopedics ok with continuing these Continue tylenol, oxycodone, and IV dilaudid prn pain (2) Acute on chronic heart failure with preserved ejection fraction (HFpEF): Plan: With anasarca, ascites, and pulm edema; noncompliant on home diuretic Echo 08/01/24 showed EF 60 to 65%, no motion wall abnormalities, right ventricle mildly dilated, severe pulmonary hypertension, worsening tricuspid regurg BNP 1480 on admission and was significantly hypervolemic Continue spironolactone 100mg daily Continue lasix 40mg po qAM Follow BMP, Magnesium (3) Acute hypoxemic respiratory failure: Plan: Requiring 2L here and drops to 60-70s on RA when she takes off her O2 Wean off O2 as tolerated Continue with diuretics (4) Peripheral arterial disease: Plan: PAD with CAD -bilateral LE angiogram 08/06 with stent to RT External iliac and angioplasty to RT SFA Continue daily baby aspirin, high intensity statin; Plavix x 1 month (until 09/07) Plan for LT SFA intervention as outpatient (5) Persistent atrial fibrillation: Plan: Chronic history of tachybradycardia syndrome and paroxysmal atrial fibrillation on Eliquis Cardiology following - will need outpatient follow-up with electrophysiology to discuss pacemaker for tachybradycardia syndrome- not a candidate for pacemaker at this time given wounds TSH shows hypothyroidism; possibly secondary to amiodarone use vs overmedication with methimazole-methimazole is on hold Continue Eliquis Continue amiodarone 200 mg p.o. daily (6) Nausea & vomiting: Plan: Continue antiemetics as needed (7) Diabetes mellitus type 2 in obese: Plan: Holding home Januvia, discontinued diabetic diet to liberalize for improved nutrition Hemoglobin A1c well-controlled at 5.7% NovoLog discontinued 08/03 as patient needing minimal insulin and hypoglycemic at times - glucose stable/normal-dcd accuchecks (8) Hyperthyroidism: Plan: Continue to hold methimazole and repeat TSH in another 2 weeks around 08/30 (9) Anemia: Plan: chronic, microcytic anemia, Was given IV Venofer 08/08 after iron deficiency confirmed on iron panel (10) Sacral wound: Plan: Pressure ulcers of right and left buttock, stage 3 - wound care following Offload pressure Plan Chronic stable diagnoses: Depression continue sertraline Hypocalcemia - stop vitamin D and calcium supplement as she is refusing to take it HTN - discontinued metoprolol, continue with po Lasix GERD-continue PPI VTE ppx: Eliquis now on hold for BKA,on bridging Lovenox and then resume Eliquis post-BKA when ok with Ortho Code status: full Dispo: Continued stay on PCU, awaiting BKA, eventually to rehab once recovered from BKA Admission and Anticipated Discharge Date Admission Date: July 31, 2024 Subjective Pt noted to have abdominal distention yesterday. Xray shows no evidence of obstruction. Last BM, 08/17. Pt currently resting comfortably in bed, awaiting surgery this morning. Review of Systems Review of Systems: CONST: Negative for fever, body aches and chills. HENT: Negative for neck pain/stiffness, headache, congestion, sore throat, swelling. EYES: Negative for discharge/pain or vision changes. RESP: Negative for cough/hemoptysis and shortness of breath. CV: Negative chest pain, difficulty breathing, palpitations. ABD: Negative pain, nausea, vomiting. : Negative increase frequency, dysuria, blood in urine or stool. MUSC: Negative for muscle aches, edema. SKIN: Negative rash, lesions/sores. NEURO: Negative headache, dizziness, weakness. Physical Exam Physical Exam: GENERAL APPEARANCE NAD, activity normal for age, well developed/ well nourished, no cyanosis, pallor, or diaphoresis. EYES lids/conjunctiva normal. EARS/NOSE/THROAT Mucous membranes moist, nares normal, lips/teeth normal uvula midline without oral pharyngeal erythema, exudate or swelling TMs normal bilaterally. No lymphangitis/lymphedema. HEAD/NECK normocephalic atraumatic, no facial trauma, neck is supple. RESPIRATORY respiratory effort normal, speaks in full sentences, no tripod position, no accessory muscle use. Lungs clear to auscultation without rhonchi, wheezes, rales CARDIAC Regular rate and rhythm, no edema. ABDOMINAL Distended. No pulsatile masses on exam, rebound tenderness, Ryan s ign or pain over Mcburney's point. MUSCLES/EXTREMITIES No abnormal range of motion, no swelling. Right leg dressing C/D/I SKIN Warm, pink and dry. No rashes, dermatoses, petechiae or lesions. NEUROLOGICAL Speech is clear and appropriate. Normal level of consciousness. Gait and coordination are normal. 5/5 strength in all extremities. PSYCH Normal mood and affect. Judgement/competence is appropriate Results & Data Results & Data Vital Signs (Past 12 Hours) Vital Signs Temp Pulse Pulse Resp BP Pulse Ox Pulse Ox 08/20/24 07:15 36.8 C 53 L 16 99/54 L 94 08/20/24 04:28 36.9 C 59 L 18 121/71 93 08/20/24 00:00 52 L 08/19/24 23:58 36.5 C 46 L 13 114/63 92 08/19/24 23:00 93 08/19/24 22:00 O2 Del Method O2 Del Method O2 Flow Rate O2 Flow Rate 08/20/24 07:15 Nasal Cannula 2 08/20/24 04:28 Nasal Cannula 1.5 08/20/24 00:00 08/19/24 23:58 Nasal Cannula 08/19/24 23:00 Nasal Cannula 1.5 08/19/24 22:00 Nasal Cannula 1.5 PG Care Time/CCT Total # of Minutes Spent Total Time Spent with Patient: Total time spent is greater than 50% in coordination of care (as documented) at patient's floor/unit and/or counseling patient: Coding Level of Care Code 91816 SUB INP/OBS CARE 2/35MIN Diagnoses Diabetic foot infection E11.628; L08.9 Acute on chronic heart failure with preserved ejection fraction (HFpEF) I50.33 Acute hypoxemic respiratory failure J96.01 Peripheral arterial disease I73.9 Persistent atrial fibrillation I48.19 Nausea & vomiting R11.2 Diabetes mellitus type 2 in obese E11.69; E66.9 Hyperthyroidism E05.90 Anemia D64.9 Sacral wound S31.000A
--- NOTE | 2024-08-20 09:23 | Anesthesiology Consultation ---
Date of Service August 20, 2024 Assessment & Plan (1) Encounter for pre-operative examination: Chart Review Chart Review: Acceptable Risk for Surgery and Patient NOT seen in Pre Admission Testing Holding Eliquis prior to surgery-last dose AM of 08/17 and on bridging Lovenox- HOLD Lovenox after AM dose on 08/19 Consults Requested none ASA ASA3 Proposed Anesthesia Anesthesia Type: General Risk / Benefits Reviewed With: PT / POA / Parent / Guardian, Accepts Plan and Informed Consent Obtained History Surgery Operation Date: 08/05/24 09:25 Proposed Procedures p Bilateral Excisional Debridement Ulcers - Italo Melendrez DPM Operation Date: 08/06/24 08:30 Proposed Procedures p Angiogram Extremity Bilateral - Jean-Claude Tolbert MD Operation Date: 08/20/24 11:00 Proposed Procedures p Right Below Knee Amputation - Ahsan Farr DO Height/Weight Height: 5 ft 2 in Weight: 71.7 kg Allergies Allergy/AdvReac Type Severity Reaction Status Date / Time ciprofloxacin [Cipro] Allergy Mild SHORTNESS Verified 07/31/24 20:15 OF BREATH miconazole Allergy Mild Rash Verified 07/31/24 20:15 empagliflozin Allergy Unknown Unknown Verified 07/31/24 20:15 [From Jardiance] metformin Allergy Unknown Unknown Verified 07/31/24 20:15 Medications Home Medications Medication Instructions Recorded Confirmed Last Taken methimazole 10 mg tablet 10 mg PO QAM 07/20/22 07/31/24 07/31/24 sitagliptin phosphate 100 mg 100 mg PO QDB 07/20/22 07/31/24 07/31/24 tablet (Januvia) metoprolol succinate 25 mg 25 mg PO BID #60 tabs 09/04/22 07/31/24 07/31/24 tablet,extended release 24 hr AM amiodarone 200 mg tablet 200 mg PO QAM 07/31/24 07/31/24 07/31/24 apixaban 5 mg tablet (Eliquis) 5 mg PO QAM 07/31/24 07/31/24 07/31/24 AM aspirin 81 mg tablet,delayed 81 mg PO QAM 07/31/24 07/31/24 07/31/24 release furosemide 40 mg tablet 40 mg PO BID 07/31/24 07/31/24 07/31/24 oxycodone 10 mg tablet 10 mg PO Q4 PRN Pain 07/31/24 07/31/24 Unknown pantoprazole 40 mg tablet,delayed 40 mg PO QAM 07/31/24 07/31/24 07/31/24 release potassium chloride 20 mEq 20 meq PO QAM 07/31/24 07/31/24 Unknown tablet,extended release(part/cryst) (Klor-Con M) sertraline 50 mg tablet (Zoloft) 50 mg PO DAILY PRN USES FOR ANXIETY 07/31/24 07/31/24 Unknown tiotropium bromide 1.25 2 puff inhalation DAILY PRN 07/31/24 07/31/24 Unknown mcg/actuation mist for inhalation Shortness Of Breath (Spiriva Respimat) Active Medications Generic Name Dose Route Start Last Admin Trade Name Freq PRN Reason Stop Dose Admin Amiodarone HCl 200 mg 08/12/24 09:00 08/19/24 11:38 Amiodarone 200 Mg Tab PO 09/11/24 08:59 200 mg QAM ELIAN Administration Aspirin 81 mg 08/01/24 09:00 08/19/24 13:21 Aspirin 81 Mg Ectab PO 08/31/24 08:59 81 mg QAM ELIAN Administration Atorvastatin Calcium 80 mg 08/02/24 09:00 08/19/24 13:22 Atorvastatin 40 Mg Tab PO 09/01/24 08:59 80 mg QAM EILAN Administration Cholestyramine Resin 4 gm 08/17/24 12:15 08/19/24 21:47 Cholestyramine Light 4 Gm Pkt PO 09/16/24 12:14 Not Given BID@1000,2200 ELIAN Clopidogrel Bisulfate 75 mg 08/07/24 09:00 08/19/24 13:21 Clopidogrel Bisulfate 75 Mg Tab PO 09/06/24 08:59 75 mg QAM ELIAN Administration Collagenase 1 appln 08/11/24 09:00 08/19/24 11:38 Collagenase Oint 30 Gm Tube EXT 09/10/24 08:59 1 appln DAILY ELIAN Administration Dextrose 25 - 50 ml 07/31/24 23:18 08/05/24 09:26 Dextrose 50% 50 Ml Syringe IV 08/30/24 23:17 25 ml UD PRN Administration Hypoglycemia Protocol Protocol Enoxaparin Sodium 70 mg 08/17/24 21:00 08/19/24 14:24 Enoxaparin 80 Mg/0.8 Ml Syr SQ 09/16/24 20:59 Not Given Q12 ELIAN Furosemide 40 mg 08/17/24 09:00 08/19/24 11:39 Furosemide 40 Mg Tab PO 09/16/24 08:59 40 mg QAM ELIAN Administration Hydromorphone HCl 0.25 mg 08/08/24 15:47 08/19/24 20:27 Hydromorphone Inj 0.5 Mg/0.5 Ml Syr IV 08/22/24 15:46 0.25 mg Q4H PRN Administration Severe Pain (Scale 7, 8, 9,10) Piperacillin Sod/Tazobactam Sod 4.5 gm in 100 mls @ 25 mls/hr 08/08/24 16:00 08/20/24 08:55 Zosyn IV 09/19/24 15:59 Infused Q8H ELIAN Infusion Protocol Prochlorperazine 5 mg/ Syringe 5 mls @ 5 mls/min 08/14/24 17:29 08/15/24 20:14 IV 09/13/24 17:28 5 mls/min Q6H PRN Administration Nausea And Vomiting Lactated Ringer's 1,000 mls @ 15 mls/hr 08/20/24 11:15 08/20/24 11:05 Lr IV 08/21/24 11:14 0 mls/hr .Q24H ELIAN Infusion Melatonin 3 mg 08/06/24 22:04 08/17/24 20:29 Melatonin 3 Mg Tab PO 09/05/24 22:03 3 mg HS PRN Administration Sleep Ondansetron HCl 4 mg 08/01/24 18:20 08/14/24 20:08 Ondansetron Inj 2 Mg/Ml 2 Ml Vial IV 08/31/24 18:19 4 mg Q4H PRN Administration Nausea Oxycodone HCl 5 mg 08/19/24 00:28 08/19/24 18:43 Oxycodone Hcl Ir 5 Mg Tab (Immediate Release) PO 09/02/24 00:27 5 mg Q4 PRN Administration moderate-severe pain Pantoprazole Sodium 40 mg 08/01/24 09:00 08/19/24 11:40 Pantoprazole 40 Mg Tab PO 08/31/24 08:59 40 mg QAM ELIAN Administration Potassium Chloride 40 meq 08/18/24 07:53 08/19/24 21:47 Potassium Chloride Crtab 20 Meq Tabcr PO 09/17/24 07:52 Not Given TID ELIAN Sertraline HCl 50 mg 08/02/24 09:00 08/19/24 13:24 Sertraline Hcl 50 Mg Tablet PO 09/01/24 08:59 50 mg DAILY ELIAN Administration Spironolactone 100 mg 08/17/24 09:00 08/19/24 11:41 Spironolactone 100 Mg Tab PO 09/16/24 08:59 100 mg QAM ELIAN Administration Umeclidinium [place] 1 puffs 08/02/24 09:00 08/19/24 11:42 Umeclidinium [place] 62.5mcg/Blister 7 Puffs/Inhaler INH 09/01/24 08:59 Not Given DAILY ELIAN Protocol NPO Date Last Intake of Fluids: 08/19/24 Time Last Intake of Fluids: 22:00 Date Last Intake of Solids: 08/19/24 Time Last Intake of Solids: 22:00 Past Medical History Medical History (Updated 08/20/24 @ 09:25 by Popeye Mckoy MD) Tachy-reema syndrome Encounter for pre-operative examination Peripheral arterial disease Osteomyelitis of foot, right, acute 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 Acute on chronic heart failure with preserved EF: Volume status improving. She is affecting a daily diuresis. Would seem reasonable continue her current dose of Lasix given the stability of her renal function. At some point could be switched to an oral regimen. 2. Bradycardia: Mild. No overt symptoms. She does have some slow heart rates at times, but she has not been ambulatory and I do not think there is any concern with heart rates even in the 40s while she is in bed. Will continue her current dose of metoprolol. 3. CAD: Medical therapy was recommended for mostly nonobstructive CAD. High intensity statin therapy. On Eliquis. 4. Paroxysmal atrial fibrillation: Paroxysmal. She was in atrial fibrillation for an extended period over the past couple of days. Now back in a sinus bradycardia. Not symptomatic. Metoprolol added back to her medical regimen for better rate control. I think will be reasonable continue her on her current dose of amiodarone and metoprolol. She will continue Eliquis as well. 5. Anticoagulation: Continue Eliquis 5 mg twice daily 6. Tricuspid regurgitation: May improve with diuresis. 7. Pulmonary hypertension: Likely related to her hypervolemic state. Continue diuresis. 8. Dyslipidemia: Continue statin therapy 9. Lower extremity wounds/osteomyelitis: Revascularized. Infectious disease and podiatry following. Consideration be given to amputation. I will be away from the hospital for the next 2 days. I do not think there are any acute cardiac issues that require daily management. At this point I would simply continue diuresis as tolerated. She can continue on her current medical therapy for atrial fibrillation. At some point she would be a good candidate for a pacemaker in the setting of tachybradycardia syndrome. However, this is relatively contraindicated given her active infection. Exercise / Class Metabolic Activity II 4-5 Yardwork/Stairs/Walk up hill Past Family History Bilateral excisional debridement ulcers by Dr. Melendrez 08/05/24. MAC. angiogram 08/06 with stent placed in right external iliac artery and angioplasty to right SFA Past Anesthesia History No Hx of Anesthesia Complications History of PONV No Hx of PONV Social History Smoking Status: Former smoker Smoking End Date: tamia >10 years ago Hx Alcohol Use: No Hx Substance Use: No substance use type: does not use Review of Systems ROS Unobtainable: All systems reviewed & are unremarkable except as noted in HPI & below Physical Exam Vital Signs Last Vital Signs Temp 36.7 C 08/20/24 10:51 Pulse 56 L 08/20/24 10:51 Resp 18 08/20/24 10:51 BP 118/59 L 08/20/24 10:51 Pulse Ox 97 08/20/24 10:51 O2 Del Method Nasal Cannula 08/20/24 10:51 O2 Flow Rate 2 08/20/24 10:51 ENMT Thyromental Distance: > or= 3.5 Finger Breadths Mallampati Class: II Respiratory normal respiratory effort Auscultation: lungs clear to auscultation bilaterally Cardiovascular Rate/Rhythm: regular rate and + bradycardic Psychiatric Orientation: alert and oriented x 3 Testing Laboratory Results 08/20/24 05:22 08/20/24 05:22 PT 13.5 Seconds (9.0-12.0) H 07/31/24 17:15 INR 1.3 (0.9-1.1) H 07/31/24 17:15 Hemoglobin A1c 5.7 % (4.5-5.6) H 08/01/24 05:52 Urine Color Dark Yellow 07/31/24 17:20 Urine Appearance Cloudy (Clear) A 07/31/24 17:20 Urine pH 5.5 (4.5-7.5) 07/31/24 17:20 Ur Specific Irwin 1.024 (1.000-1.030) 07/31/24 17:20 Urine Protein 1+ (Negative) H 07/31/24 17:20 Urine Glucose (UA) Negative (Negative) 07/31/24 17:20 Urine Ketones Trace (Negative) H 07/31/24 17:20 Urine Nitrite Negative (Negative) 07/31/24 17:20 Ur Leukocyte Esterase Negative (Negative) 07/31/24 17:20 Urine WBC (Auto) 0-5 /hpf (0-5) 07/31/24 17:20 Urine RBC (Auto) 3-5 /hpf (0-2) H 07/31/24 17:20 U Hyaline Cast (Auto) 6-10 /lpf (0-2) H 07/31/24 17:20 U Epithel Cells (Auto) 3-5 /hpf (0-2) H 07/31/24 17:20 Urine Bacteria (Auto) None Seen (None Seen) 07/31/24 17:20 Blood Type O Positive 08/20/24 05:22 Antibody Screen NEGATIVE 08/20/24 05:22 07/31/24 17:56 Gram Stain - Final Ankle Aerobic and Anaerobic Culture - Final Kerstersia gyiorum Pseudomonas aeruginosa Alcaligenes faecalis 08/05/24 11:15 Gram Stain - Final Foot,Right Aerobic and Anaerobic Culture - Final Low counts mixed probable skin microbiota. No further identifications or sensitivities to follow. 07/31/24 18:48 Aerobic Blood Culture - Final Blood No growth in Aerobic bottle after 5 days. Anaerobic Blood Culture - Final No growth in Anaerobic bottle after 5 days. 07/31/24 17:15 Aerobic Blood Culture - Final Blood No growth in Aerobic bottle after 5 days. Anaerobic Blood Culture - Final No growth in Anaerobic bottle after 5 days. 08/20/24 08/20/24 10:33 10:31 POC Glucose 58 L* 63 L* Electrocardiogram Date: 08/04/24 Findings: + pertinent finding (unusual P axis @ 59;possible atrial bradycardia;ST & T wave abnl) Chest X-Ray Date: 07/31/24 Findings: + cardiomegaly and + pulmonary vascular congestion Echocardiogram Date: 08/01/24 EF: 60% Other Findings: + atrial enlargement (mild biatrial dilation) and + LVH (moderate) Valvular Disease: + MR (mild) TR-severe severe pulm HTN-69 TORR RV mildly dilated,decreased FXN
[2024-08-20] MEDS: DEXTROSE 5% 500 ML IV SCH (10:35)
--- NOTE | 2024-08-20 10:48 | History & Physical Bridge Note ---
Date of Service August 20, 2024 History & Physical Bridge Note I have examined the patient, reviewed the History & Physical and in the interval since the performance of the History & Physical I have noted the following changes of clinical significance: no changes noted I saw and examined the patient in the preoperative holding area. Her right lower extremity wound continues to have significant difficulty healing. Per wound care, podiatry, vascular surgery there is no chance at wound healing, as such orthopedics was consulted for below-knee amputation. Vascular surgery has evaluated the patient and is convinced that she has the capacity to heal a below-knee amputation. Our plan for surgery today includes right below-knee amputation with regenerative peripheral nerve interface procedure to help prevent neuroma. I explained to the patient the risks of surgery to include but not limited to loss of life, infection, need for additional surgery, need for higher level amputation, wound healing issues, dog ears on the residual limb, neuroma pain, residual limb pain/sensation, inability to wear a prosthesis. The patient understands these risks and wishes to proceed. I also explained to her once again that considering she was not ambulating prior to this, I do not suspect that she will be ambulatory following surgery, even with a prosthesis. No outcomes or guarantees were stated or implied to the patient.
[2024-08-20] MEDS: LACTATED RINGER'S 1,000 ML IV SCH (11:05)
[2024-08-20] MEDS ORDERED: HYDROmorphone INJ 1 MG/ML SYRINGE IV PRN (11:22)
[2024-08-20] MEDS ORDERED: ATROPINE SULFATE 0.1 MG/ML 10ML SYR IV PRN (11:22)
[2024-08-20] MEDS ORDERED: ePHEDrine sulfate 50 MG/ML AMP IV PRN (11:22)
[2024-08-20] MEDS ORDERED: fentaNYL citrate PF 100 MCG/2 ML VIAL IV PRN (11:22)
[2024-08-20] MEDS ORDERED: MIDAZOLAM HCL 1 MG/ML 2ML VIAL ONE (11:56)
[2024-08-20] MEDS ORDERED: fentaNYL citrate PF 100 MCG/2 ML VIAL ONE ×2 (11:57→14:49)
[2024-08-20] MEDS ORDERED: LIDOCAINE 2% 2 ML VIAL/AMP(20MG/ML) INFIL ONE (11:58)
[2024-08-20] MEDS ORDERED: ONDANSETRON INJ 2 MG/ML 2 ML VIAL ONE (11:58)
[2024-08-20] MEDS ORDERED: PROPOFOL IV EMULSION 10 MG/ML 20 ML VIAL IV ONE (11:58)
[2024-08-20] MEDS ORDERED: ceFAZolin 330 MG/ML 1 GM VIAL ONE (12:44)
[2024-08-20] MEDS ORDERED: SUGAMMADEX SODIUM 200 MG/2 ML VIAL IV ONE (12:44)
[2024-08-20] MEDS ORDERED: ROCURONIUM BROMIDE 10 MG/ML 5 ML VIAL IV ONE (12:44)
[2024-08-20] MEDS ORDERED: SODIUM CHLORIDE 0.9% PF INJ 10 ML VIAL ONE (12:44)
[2024-08-20] MEDS ORDERED: ePHEDrine sulfate 50 MG/5 ML SYR ONE (12:44)
[2024-08-20] MEDS: ceFAZolin 2000MG 2,000 MG/15 ML SYR IV ONE (12:46)
[2024-08-20] MEDS ORDERED: ALBUTEROL HFA 8 GM INHALER INH ONE (12:53)
[2024-08-20] MEDS ORDERED: PHENYLEPHRINE 100MCG/ML 5ML SYR ONE (13:24)
[2024-08-20] MEDS ORDERED: VASOPRESSIN 20 UNIT/ML VIAL ONE (13:32)
[2024-08-20] MEDS ORDERED: ALBUMIN HUMAN 5% 12.5 GM/250 ML VIAL IV ONE (13:39)
[2024-08-20] MEDS ORDERED: SODIUM CHLORIDE 0.9% 100 ML IV PRN (13:39)
[2024-08-20] MEDS ORDERED: SODIUM CHLORIDE 0.9% 50 ML IV PRN (13:39)
[2024-08-20] MEDS: THROMBIN FOR SOLN 20000 UNIT KIT ONE (13:57)
[2024-08-20] MEDS: GELATIN SPONGE SZ 100 ONE (13:57)
--- NOTE | 2024-08-20 15:40 | Post Operative Brief Note ---
Immediate Post Op Note Date of Surgery August 20, 2024 Pre & Post Diagnosis Operation Date: 08/20/24 11:00 Pre-Op Diagnosis: Peripheral arterial disease, Cellulitis of right lower limb, 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 Post-Op Diagnosis: Peripheral arterial disease, Cellulitis of right lower limb, 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 I identified the patient and participated in the time-out.: Yes Procedure Operation Date: 08/20/24 11:00 Actual Procedures p Right Below Knee Amputation(Right) - Ahsan Farr DO Surgeon Ahsan Farr DO Assistant Associate Full Professor Roxi Mandel Estimated Blood Loss 500 Findings See Below Wound noted on anterior ankle with severe necrotic tissue and no capacity to bleed Fluids See anesthesia record Specimens Bone/Talus culture Right Bone/Talus pathology Right Drains Gould Catheter (Had prior to arrival to operating room) Anesthesia Type RN Sedation Complications None immediately apparent Disposition Disposition: Recovery Room Overlapping Procedure I was present for: the critical portions of procedure. (The entire case)
[2024-08-20] MEDS: ONDANSETRON INJ 2 MG/ML 2 ML VIAL IV PRN (16:05)
--- NOTE | 2024-08-20 16:26 | Anesthesiology Progress Note ---
Date of Service August 20, 2024 Anesthesia Post Procedure Vital Signs Vital Signs: Temp Pulse Pulse Pulse Resp BP BP 08/20/24 16:05 36.4 C L 72 16 114/61 08/20/24 15:55 69 18 101/61 08/20/24 15:45 68 18 117/66 08/20/24 15:35 36.2 C L 68 16 106/66 08/20/24 10:51 36.7 C 56 L 18 118/59 L 08/20/24 07:15 36.8 C 53 L 16 99/54 L 08/20/24 04:28 36.9 C 59 L 18 121/71 08/20/24 00:00 52 L 08/19/24 23:58 36.5 C 46 L 13 114/63 08/19/24 23:00 08/19/24 22:00 08/19/24 19:05 36.6 C 58 L 15 116/59 L 08/19/24 16:37 59 L Pulse Ox Pulse Ox O2 Del Method O2 Del Method O2 Flow Rate O2 Flow Rate 08/20/24 16:05 99 Nasal Cannula 2 08/20/24 15:55 97 Nasal Cannula 2 08/20/24 15:45 99 Oxymask 4 08/20/24 15:35 100 Oxymask 6 08/20/24 10:51 97 Nasal Cannula 2 08/20/24 07:15 94 Nasal Cannula 2 08/20/24 04:28 93 Nasal Cannula 1.5 08/20/24 00:00 08/19/24 23:58 92 Nasal Cannula 08/19/24 23:00 93 Nasal Cannula 1.5 08/19/24 22:00 Nasal Cannula 1.5 08/19/24 19:05 91 Room Air 08/19/24 16:37 Pain Intensity Right Lower Ankle: Pain Intensity: 7 Right Heel: Pain Intensity: 3 Back: Pain Intensity: 0 Bilateral Buttock: Pain Intensity: 0 Transfer of Care Handoff Completed per policy Notes Mental Status: alert / awake / arousable Patient Amnestic to Procedure: Yes Nausea / Vomiting: adequately controlled Pain: adequately controlled Airway Patency, RR, SpO2: stable & adequate BP & HR: stable & adequate Hydration State: stable & adequate Anesthetic Complications: no major complications apparent and Pt Satisfied with anesthetic care
[2024-08-20] MEDS: FAMOTIDINE/PF 20 MG/2 ML VIAL IV ONE (17:00)
[2024-08-20] MEDS: SODIUM CHLORIDE 0.9% 500 ML IV ONE (17:34)
--- NOTE | 2024-08-20 18:16 | Operative Report ---
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 Right lower extremity for pathology Drains None Anesthesia Type General Complications None immediately apparent Disposition Disposition: Recovery Room Indications 69-year-old female who presented to [facility] about 2-1/2 weeks ago with essentially failure to thrive. It was discovered that she had significant wounds to her bilateral lower extremities. She was taken to the operating room with interventional cardiology for attempted revascularization, she has been taken the operating room for debridement and wound VAC placement by podiatry, unfortunately none of these efforts have worked with regards to her right leg, and as such orthopedics was consulted for consideration of a below- knee amputation. Patient was alert and attentive and she was oriented to person place and time. She was participatory in the discussion about her right lower extremity. I did explain to the patient that an amputation is a life altering surgery, and for her being that she is 69 years old, has very low functionality, and hasnt recently ambulated, she is unlikely to ever walk again after an amputation. I expressed to her that the best potential outcome for her would be a limb upon which she could stand to pivot/transfer. For her, amputation of her right lower extremity is strictly for source control of infection, and to remove any potential future sources of infection. I did explain that there is a very high risk of incomplete healing of amputation wound due to her severe peripheral vascular disease, however per vascular surgery, they do believe that she has the ability to heal a below-knee amputation. I explained in great detail of the risks of the surgery to the patient including but not limited to loss of life, DVT, incomplete relief of pain, incomplete healing, infection, need for additional surgery, need for above-knee amputation, issues in the future with prosthetic wear, inability to ever walk again. Patient understands these risks. I made no promises or guarantees to the patient nor did I imply any. She wishes to proceed. Description of Procedure After informed consent was obtained, the patient was correctly identified in the preoperative holding suite, the operative site was marked with the surgeon's initials, the date of surgery, and the word yes. The patient was then taken to the operative suite. The department of anesthesia administered General anesthesia. The patient was transferred from the [facility] to the operative table. All bony prominences were well-padded. Briefing and timeout was performed. All implants were available and sterile at the time. BRIEFING AND DEBRIEFING: Pre and post operative briefing and debriefing was performed. Introductions were made, goals of the procedure were discussed, questions and concerns were addressed. The operative site markings were id entified and appropriate. A time [id number] was performed, the patient's correct identity was confirmed and the correct operative sites were identified. The patients pre-operative antibiotic dosing and administration was confirmed along with other SCIP measures. The team was polled at the completion of the surgery and all team members were in agreement that the procedure was without complication, the counts are correct, the wound class was identified and suggestions for improvement were shared. After the patient was transferred onto the operative table, her right lower extremity wound was inspected. There was severe necrotic tissue surrounding all wound edges and there was no capacity with a tissue bleed. Did attempt to scrape this wound, however still no bleeding was noted. At this point we elected to proceed with below-knee amputation. A tourniquet was placed high on the right thigh, a bump was placed under the ipsilateral hip. The patient's right lower extremity was prepped and draped in standard sterile fashion using a scrub and paint Betadine. The limb was elevated, tourniquet inflated and we planned our flap for resection. The tourniquet was inflated to 250 mmHg and remained elevated for 41 minutes. We opted to proceed with using a long posterior flap for appropriate anterior soft tissue coverage. We made our skin amairani anteriorly approximately 16 cm distal to the tibial tubercle. We brought this down both medially and laterally and then developed a long posterior flap that would extend distally until the confluence of the Achilles tendon. We incised sharply through skin and subcutaneous tissue until we reached the tibia anteriorly. We carried this dissection around both sides. We then cauterized any early bleeding vessels and located the anterior tibial artery and vein and tied these with 0 silk stick ties. We used the oscillating saw and osteotomized tibia proximal to our skin incision. We then beveled the anterior tibial crest and the cut edge so as to not cause irritation in the future. We then isolated the fibula and made our cut just proximal to the tibial osteotomy. At this point, we giovani the 2 bones anteriorly and held with a bone hook while we completed the posterior cut with the amputation knife. We found, isolated, and tied off the posterior tibial artery and vein with 0 silk stick ties. Next, we found and isolated the peroneal and saphenous vascular structures and tied these off with 0 silk ties, as well. At this point, we believed that we had controlled all major vascular structures, so we covered the wound with wet lap sponges and deflated the tourniquet. The tourniquet had been up for 41 minutes at this point. Once tourniquet was released, we controlled with additional venous bleeding and we were satisfied with our hemostasis. We then located all large nerves, pulled these on stretch and transected them with a sharp knife such that they retracted into the muscle. We then planned for our myodesis. We ran 2 x #2 FiberWire in a Krakw fashion in the confluence of the gastrocnemius and soleus. We then took the sutures and through drill tunnels through the tibia tied this down so that the end of the tibial stump was padded by muscle. At this point, we removed any redundant muscular tissue that would prevent appropriate closure and we began closure in a layered fashion. We started by approximating the posteropr fascia of the superficial posterior compartment to the anterior compartment and this reapproximated the tissue nicely. We used an 0 Vicryl suture for this. Next, we used 2-0 Vicryl suture in the subcutaneous tissue and finally, used 3-0 nylon in the skin in interrupted mattress fashion such that we had appropriate skin eversion and we took care to ensure no dogears were present. We then placed brown Steri-Strips, Betadine soaked Adaptic, 4 x 4 fluffs, sterile Webril, Christiano wrap and, and placed the patient into a knee immobilizer. The patient tolerated this procedure well and was transferred to the PACU in stable condition. Prior to transportation to PACU, all counts were correct and a briefing was performed at the end of the case. I was present for the entire procedure. Plan: Weight bearing status: NWB RLE Wound care: keep dressing clean and dry Range of motion: no knee ROM VTE Prophylaxis: okay to resume from orthopaedic standpoint Antibiotics: periop and then per primary team Pain Control: multimodal Discharge Plan: pending - likely to SNF Follow Up: with myself for wound check in 2 weeks I attest to the content of the Intraoperative Record and any orders documented therein. Any exceptions are noted below.
[2024-08-20] MEDS: MAGNESIUM SULFATE / D5W 1 GM/100 ML BAG IV SCH (22:23)
[2024-08-20 23:27] LABS: BUN Creatinine Ratio 28.9 (10-20); Calcium 7.3 mg/dl (8.6-10.3); Creatinine Clr Calc Pharmacy 133.2 ml/min; Magnesium 1.7 mg/dl (1.7-2.4); Potassium 3.5 mmol/L (3.5-5.1)
--- NOTE | 2024-08-20 23:34 | Communication Note ---
Date of Service: August 20, 2024 Natividad is a 69F w/ PMH of anemia, diabetic foot infection, depression, anxiety, DM2, hypothyroidism, and AFib w/ RVR who recently underwent R BKA 08/20. Patient noted to have transitioned into A Fib w/ RVR around 10 PM. Examined at bedside, denies chest pain or dyspnea. Repeatedly notes phantom foot pain and requests pain medication. Patient refusing to take any additional medications unless she is given pain medication. Patient has remained hypotensive since her operation this afternoon when she required a blood transfusion, though MAP > 70. She remains tachycardic 150s-160s. Repeat H&H returned w/ Hgb 7.6 - will maintain transfusion threshold of 7, unless MAPs become unstable. Repleted Mag. Maintain goal of K > 4 and Mg > 2. Patient refused PO Amiodarone AM of 08/21, will provide 150 mg IV Amiodarone. MAPs remaining > 70, will provide pain medication. Resident Activity Tracking Resident Involvement: Resident Care Provided Care Provided: Adult Hospital Medicine
[2024-08-21] MEDS ORDERED: 0.2 MICRON FILTER SET 1 EACH IV ONE (00:32)
[2024-08-21] MEDS: AMIODARONE / D5W 150 MG/100 ML BAG IV STA (00:49)
[2024-08-21 01:09] LABS: Hematocrit (blood only) 23.4 % (37.0-47.0); Hemoglobin 7.6 g/dl (12.0-16.0)
[2024-08-21] MEDS: POTASSIUM CHLORIDE / WTR 10 MEQ/100 ML PLCT IV SCH (05:32)
--- NOTE | 2024-08-21 07:36 | Orthopedic Progress Note ---
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 will follow up with me in 2-3 weeks for wound check no plans for additional orthopaedic intervention during this admission podiatry managing LLE Admission and Anticipated Discharge Date Admission Date: July 31, 2024 Subjective POD1 s/p R BKA. doing well. some pain last night. difficulty sleeping. Review of Systems Review of Systems: All systems reviewed & are unremarkable except as noted in HPI & below Physical Exam Physical Exam: RLE: knee immobilizer in place dressings c/d/i Results & Data Vital Signs (Past 12 Hours) Vital Signs Temp Pulse Pulse Pulse Resp BP Pulse Ox 08/21/24 06:16 140 H 94/65 L 08/21/24 04:42 36.8 C 88 21 103/72 94 08/21/24 03:31 140 H 103/72 08/21/24 02:37 36.5 C 140 H 18 106/66 97 08/21/24 01:38 132 H 92/63 L 08/21/24 00:55 138 H 100/73 08/21/24 00:09 76/62 L 08/20/24 23:52 146 H 87/66 L 08/20/24 23:00 150 H 94/65 L 08/20/24 22:40 36.7 C 137 H 18 87/70 L 97 08/20/24 22:04 144 H 08/20/24 22:00 144 H 98/70 L 08/20/24 21:00 122/71 08/20/24 20:00 O2 Del Method O2 Flow Rate 08/21/24 06:16 08/21/24 04:42 Nasal Cannula 2.0 08/21/24 03:31 08/21/24 02:37 Nasal Cannula 2 08/21/24 01:38 08/21/24 00:55 08/21/24 00:09 08/20/24 23:52 08/20/24 23:00 08/20/24 22:40 Nasal Cannula 2.0 08/20/24 22:04 08/20/24 22:00 08/20/24 21:00 08/20/24 20:00 Nasal Cannula 2
--- NOTE | 2024-08-21 11:17 | Hospitalist Progress Note ---
Date of Service August 21, 2024 Assessment & Plan (1) Diabetic foot infection: Plan: Bilateral foot ulcers with necrosis, osteomyelitis of dorsal right foot wound wound debridement 08/05 with podiatry and angiogram 08/06 with stent placed in right external iliac artery and angioplasty to right SFA With ongoing poor wound healing secondary to PAD and long h/o diabetes Wound cx w/ Pseudomonas aeruginosa, Kerstersia gyiorum, and Alcaligenes faecalis Surgical bone cx from [place] showed low counts mixed probable skin microbiota; [place] bone pathology: osteonecrosis/osteomyelitis Blood cultures 07/31 no growth MRI foot shows OM at base of fifth MT, no OM in leg Continue Zosyn, ID following as will need prolonged course IV abx --> however, s/p BKA, can likely stop antibiotics Consult Ortho appreciated--> s/p right leg BKA 08/20 Orthotics consulted to assess for prothesis after BKA Ok to be weight bearing on left for PT/OT as per my d/w Podiatry Continue tylenol, oxycodone, and IV dilaudid prn pain (2) Acute on chronic heart failure with preserved ejection fraction (HFpEF): Plan: With anasarca, ascites, and pulm edema; noncompliant on home diuretic Echo 08/01/24 showed EF 60 to 65%, no motion wall abnormalities, right ventricle mildly dilated, severe pulmonary hypertension, worsening tricuspid regurg BNP 1480 on admission and was significantly hypervolemic Continue spironolactone 100mg daily Continue lasix 40mg po qAM Follow BMP, Magnesium (3) Acute hypoxemic respiratory failure: Plan: Requiring 2L here and drops to 60-70s on RA when she takes off her O2 Wean off O2 as tolerated Continue with diuretics (4) Peripheral arterial disease: Plan: PAD with CAD -bilateral LE angiogram 08/06 with stent to RT External iliac and angioplasty to RT SFA Continue daily baby aspirin, high intensity statin; Plavix x 1 month (until 09/07) Plan for LT SFA intervention as outpatient (5) Persistent atrial fibrillation: Plan: Chronic history of tachybradycardia syndrome and paroxysmal atrial fibrillation on Eliquis Cardiology following - will need outpatient follow-up with electrophysiology to discuss pacemaker for tachybradycardia syndrome- not a candidate for pacemaker at this time given wounds TSH shows hypothyroidism; possibly secondary to amiodarone use vs overmedication with methimazole-methimazole is on hold Continue Eliquis Continue amiodarone 200 mg p.o. daily (6) Nausea & vomiting: Plan: Continue antiemetics as needed (7) Diabetes mellitus type 2 in obese: Plan: Holding home Januvia, discontinued diabetic diet to liberalize for improved nutrition Hemoglobin A1c well-controlled at 5.7% NovoLog discontinued 08/03 as patient needing minimal insulin and hypoglycemic at times - glucose stable/normal-dcd accuchecks (8) Hyperthyroidism: Plan: Continue to hold methimazole and repeat TSH in another 2 weeks around 08/30 (9) Anemia: Plan: chronic, microcytic anemia, Was given IV Venofer 08/08 after iron deficiency confirmed on iron panel f/u post op CBC, keep heme >7.0 (10) Sacral wound: Plan: Pressure ulcers of right and left buttock, stage 3 - wound care following Offload pressure Plan Chronic stable diagnoses: Depression continue sertraline Hypocalcemia - stop vitamin D and calcium supplement as she is refusing to take it HTN - discontinued metoprolol, continue with po Lasix GERD-continue PPI VTE ppx: Eliquis now on hold for BKA,on bridging Lovenox and then resume Eliquis post-BKA when ok with Ortho Code status: full Dispo: BP soft overnight, episode of afib with RVR con't PCU, s/p BKA 08/20, eventually to rehab once recovered from BKA Admission and Anticipated Discharge Date Admission Date: July 31, 2024 Subjective Pt had episode of afib with RVR last night, this morning is doing well with BP stable. She is complaining of pain to her leg. Review of Systems Review of Systems: CONST: Negative for fever, body aches and chills. HENT: Negative for neck pain/stiffness, headache, congestion, sore throat, swelling. EYES: Negative for discharge/pain or vision changes. RESP: Negative for cough/hemoptysis and shortness of breath. CV: Negative chest pain, difficulty breathing, palpitations. ABD: Negative pain, nausea, vomiting. : Negative increase frequency, dysuria, blood in urine or stool. MUSC: Negative for muscle aches, edema. SKIN: Negative rash, lesions/sores. NEURO: Negative headache, dizziness, weakness. Physical Exam Physical Exam: GENERAL APPEARANCE NAD, activity normal for age, well developed/ well nourished, no cyanosis, pallor, or diaphoresis. EYES lids/conjunctiva normal. EARS/NOSE/THROAT Mucous membranes moist, nares normal, lips/teeth normal uvula midline without oral pharyngeal erythema, exudate or swelling TMs normal bilaterally. No lymphangitis/lymphedema. HEAD/NECK normocephalic atraumatic, no facial trauma, neck is supple. RESPIRATORY respiratory effort normal, speaks in full sentences, no tripod position, no accessory muscle use. Lungs clear to auscultation without rhonchi, wheezes, rales CARDIAC Regular rate and rhythm, no edema. ABDOMINAL Distended. No pulsatile masses on exam, rebound tenderness, Ryan sign or pain over Mcburney's point. MUSCLES/EXTREMITIES No abnormal range of motion, no swelling. Right leg dressing C/D/I SKIN Warm, pink and dry. No rashes, dermatoses, petechiae or lesions. NEUROLOGICAL Speech is clear and appropriate. Normal level of consciousness. Gait and coordination are normal. 5/5 strength in all extremities. PSYCH Normal mood and affect. Judgement/competence is appropriate Results & Data Results & Data Vital Signs (Past 12 Hours) Vital Signs Temp Pulse Pulse Resp BP Pulse Ox O2 Del Method 08/21/24 10:30 122/73 08/21/24 07:51 36.7 C 69 18 93/51 L 97 Nasal Cannula 08/21/24 06:16 140 H 94/65 L 08/21/24 04:42 36.8 C 88 21 103/72 94 Nasal Cannula 08/21/24 03:31 140 H 103/72 08/21/24 02:37 36.5 C 140 H 18 106/66 97 Nasal Cannula 08/21/24 01:38 132 H 92/63 L 08/21/24 00:55 138 H 100/73 08/21/24 00:09 76/62 L 08/20/24 23:52 146 H 87/66 L O2 Flow Rate 08/21/24 10:30 08/21/24 07:51 2 08/21/24 06:16 08/21/24 04:42 2.0 08/21/24 03:31 08/21/24 02:37 2 08/21/24 01:38 08/21/24 00:55 08/21/24 00:09 08/20/24 23:52 PG Care Time/CCT Total # of Minutes Spent Total Time Spent with Patient: Total time spent is greater than 50% in coordination of care (as documented) at patient's floor/unit and/or counseling patient: Coding Level of Care Code 83348 SUB INP/OBS CARE 2/35MIN Diagnoses Diabetic foot infection E11.628; L08.9 Acute on chronic heart failure with preserved ejection fraction (HFpEF) I50.33 Acute hypoxemic respiratory failure J96.01 Peripheral arterial disease I73.9 Persistent atrial fibrillation I48.19 Nausea & vomiting R11.2 Diabetes mellitus type 2 in obese E11.69; E66.9 Hyperthyroidism E05.90 Anemia D64.9 Sacral wound S31.000A
[2024-08-21 12:09] LABS: Hematocrit (blood only) 21.3 % (37.0-47.0); Hemoglobin 6.8 g/dl (12.0-16.0); Mean Corpuscular Hemoglobin 27.1 pg (25.0-34.0); Mean Corpuscular Hgb Conc 31.9 g/dL (32.0-36.0); Mean Corpuscular Volume 84.9 fL (80.0-100.0); Mean Platelet Volume 11.1 fL (9.4-12.4); Platelet Count 296 K/uL (130-400); RDW Coefficient of Variation 18.4 % (11.5-14.5); RDW Standard Deviation 56.6 fL (36.4-46.3); Red Blood Count 2.51 M/uL (4.20-5.40); White Blood Count 12.46 K/ul (4.8-10.8)
[2024-08-21] MEDS ORDERED: SODIUM CHLORIDE 0.9% 50 ML IV PRN (12:14)
[2024-08-21] MEDS ORDERED: SODIUM CHLORIDE 0.9% 100 ML IV PRN (12:14)
[2024-08-21 12:17] LABS: Calcium 7.6 mg/dl (8.6-10.3); Creatinine Clr Calc Pharmacy 120.2 ml/min; Potassium 4.3 mmol/L (3.5-5.1)
[2024-08-21 12:23] LABS: Basophils # (auto) 0.06 K/uL (0.00-0.20); Basophils % (auto) 0.5 %; Eosinophils # (auto) 0.21 K/uL (0.00-0.50); Eosinophils % (auto) 1.7 %; Immature Granulocytes # (auto) 0.15 K/uL (0.01-0.20); Immature Granulocytes % (auto) 1.2 %; Lymphocytes # (auto) 0.87 K/uL (1.20-3.40); Monocytes # (auto) 0.98 K/uL (0.11-0.59); Monocytes % (auto) 7.9 %; Neutrophils # (auto) 10.19 K/uL (1.40-6.50); Neutrophils % (auto) 81.7 %; RBC Morphology Unremarkable
[2024-08-21] MEDS: SODIUM CHLORIDE 0.9% 1,000 ML IV SCH (18:12)
[2024-08-21 21:59] LABS: Hemoglobin 8.6 g/dl (12.0-16.0)
[2024-08-22 08:06] LABS: Calcium 7.3 mg/dl (8.6-10.3); Creatinine Clr Calc Pharmacy 149.1 ml/min; Potassium 4.1 mmol/L (3.5-5.1)
[2024-08-22 08:07] LABS: Basophils # (auto) 0.06 K/uL (0.00-0.20); Basophils % (auto) 0.5 %; Eosinophils # (auto) 0.17 K/uL (0.00-0.50); Eosinophils % (auto) 1.4 %; Hematocrit (blood only) 24.8 % (37.0-47.0); Hemoglobin 8.3 g/dl (12.0-16.0); Immature Granulocytes # (auto) 0.15 K/uL (0.01-0.20); Immature Granulocytes % (auto) 1.3 %; Lymphocytes # (auto) 0.76 K/uL (1.20-3.40); Lymphocytes % (auto) 6.4 %; Mean Corpuscular Hemoglobin 27.7 pg (25.0-34.0); Mean Corpuscular Hgb Conc 33.5 g/dL (32.0-36.0); Mean Corpuscular Volume 82.7 fL (80.0-100.0); Monocytes # (auto) 1.03 K/uL (0.11-0.59); Monocytes % (auto) 8.7 %; Neutrophils # (auto) 9.66 K/uL (1.40-6.50); Neutrophils % (auto) 81.7 %; Platelet Count 240 K/uL (130-400); RDW Coefficient of Variation 17.2 % (11.5-14.5); RDW Standard Deviation 50.5 fL (36.4-46.3); White Blood Count 11.83 K/ul (4.8-10.8)
--- NOTE | 2024-08-22 10:13 | Hospitalist Progress Note ---
Date of Service August 22, 2024 Assessment & Plan (1) Diabetic foot infection: Plan: Bilateral foot ulcers with necrosis, osteomyelitis of dorsal right foot wound wound debridement 08/05 with podiatry and angiogram 08/06 with stent placed in right external iliac artery and angioplasty to right SFA With ongoing poor wound healing secondary to PAD and long h/o diabetes Wound cx w/ Pseudomonas aeruginosa, Kerstersia gyiorum, and Alcaligenes faecalis Surgical bone cx from [place] showed low counts mixed probable skin microbiota; [place] bone pathology: osteonecrosis/osteomyelitis Blood cultures 07/31 no growth MRI foot shows OM at base of fifth MT, no OM in leg Continue Zosyn, ID following as will need prolonged course IV abx --> however, s/p BKA, can likely stop antibiotics Consult Ortho appreciated--> s/p right leg 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/20 Orthotics consulted to assess for prothesis after BKA Ok to be weight bearing on left for PT/OT as per my d/w Podiatry Continue Tylenol, oxycodone, and IV dilaudid prn pain (2) Acute on chronic heart failure with preserved ejection fraction (HFpEF): Plan: With anasarca, ascites, and pulm edema; noncompliant on home diuretic Echo 08/01/24 showed EF 60 to 65%, no motion wall abnormalities, right ventricle mildly dilated, severe pulmonary hypertension, worsening tricuspid regurg BNP 1480 on admission and was significantly hypervolemic Continue spironolactone 100mg daily Continue lasix 40mg po qAM Follow BMP, Magnesium (3) Acute hypoxemic respiratory failure: Plan: Requiring 2L here and drops to 60-70s on RA when she takes off her O2 Wean off O2 as tolerated Continue with diuretics (4) Peripheral arterial disease: Plan: PAD with CAD -bilateral LE angiogram 08/06 with stent to RT External iliac and angioplasty to RT SFA Continue daily baby aspirin, high intensity statin; Plavix x 1 month (until 09/07) Plan for LT SFA intervention as outpatient (5) Persistent atrial fibrillation: Plan: Chronic history of tachybradycardia syndrome and paroxysmal atrial fibrillation on Eliquis Cardiology following - will need outpatient follow-up with electrophysiology to discuss pacemaker for tachybradycardia syndrome- not a candidate for pacemaker at this time given wounds TSH shows hypothyroidism; possibly secondary to amiodarone use vs overmedication with methimazole-methimazole is on hold Continue Eliquis Continue amiodarone 200 mg p.o. daily (6) Nausea & vomiting: Plan: Continue antiemetics as needed (7) Diabetes mellitus type 2 in obese: Plan: Holding home Januvia, discontinued diabetic diet to liberalize for improved nutrition Hemoglobin A1c well-controlled at 5.7% NovoLog discontinued 08/03 as patient needing minimal insulin and hypoglycemic at times - glucose stable/normal-dcd accuchecks (8) Hyperthyroidism: Plan: Continue to hold methimazole and repeat TSH in another 2 weeks around 08/30 (9) Anemia: Plan: chronic, microcytic anemia, Was given IV Venofer 08/08 after iron deficiency confirmed on iron panel f/u post op CBC, keep heme >7.0 Had post operative anemia, was given 1 unit PRBC yesterday 08/21, , hemoglobin improved to > 8.0 (10) Sacral wound: Plan: Pressure ulcers of right and left buttock, stage 3 - wound care following Offload pressure Plan Chronic stable diagnoses: Depression continue sertraline Hypocalcemia - stop vitamin D and calcium supplement as she is refusing to take it HTN - discontinued metoprolol, continue with po Lasix GERD-continue PPI VTE ppx: Eliquis now on hold for BKA,on bridging Lovenox and then resume Eliquis post-BKA when ok with Ortho Code status: full Dispo: BP soft overnight, episode of afib with RVR con't PCU, s/p BKA 08/20, eventually to rehab once recovered from BKA Admission and Anticipated Discharge Date Admission Date: July 31, 2024 Subjective Pt complaining of severe pain in leg. States the nurses did not give her pain medications when she asked last night. Review of Systems Review of Systems: CONST: Negative for fever, body aches and chills. HENT: Negative for neck pain/stiffness, headache, congestion, sore throat, swelling. EYES: Negative for discharge/pain or vision changes. RESP: Negative for cough/hemoptysis and shortness of breath. CV: Negative chest pain, difficulty breathing, palpitations. ABD: Negative pain, nausea, vomiting. : Negative increase frequency, dysuria, blood in urine or stool. MUSC: Negative for muscle aches, edema. SKIN: Negative rash, lesions/sores. NEURO: Negative headache, dizziness, weakness. Physical Exam Physical Exam: GENERAL APPEARANCE NAD, activity normal for age, well developed/ well nourished, no cyanosis, pallor, or diaphoresis. EYES lids/conjunctiva normal. EARS/NOSE/THROAT Mucous membranes moist, nares normal, lips/teeth normal uvula midline without oral pharyngeal erythema, exudate or swelling TMs normal bilaterally. No lymphangitis/lymphedema. HEAD/NECK normocephalic atraumatic, no facial trauma, neck is supple. RESPIRATORY respiratory effort normal, speaks in full sentences, no tripod position, no accessory muscle use. Lungs clear to auscultation without rhonchi, wheezes, rales CARDIAC Regular rate and rhythm, no edema. ABDOMINAL Distended. No pulsatile masses on exam, rebound tenderness, Ryan s ign or pain over Mcburney's point. MUSCLES/EXTREMITIES No abnormal range of motion, no swelling. Right leg dressing C/D/I SKIN Warm, pink and dry. No rashes, dermatoses, petechiae or lesions. NEUROLOGICAL Speech is clear and appropriate. Normal level of consciousness. Gait and coordination are normal. 5/5 strength in all extremities. PSYCH Normal mood and affect. Judgement/competence is appropriate Results & Data Results & Data Vital Signs (Past 12 Hours) Vital Signs Temp Pulse Pulse Resp BP Pulse Ox O2 Del Method 08/22/24 08:34 36.4 C 65 22 122/63 93 Nasal Cannula 08/22/24 07:38 Nasal Cannula 08/22/24 07:38 67 08/22/24 02:45 36.9 C 68 18 124/67 96 Nasal Cannula 08/22/24 01:05 Nasal Cannula 08/21/24 23:25 37.3 C 65 18 118/63 95 Nasal Cannula 08/21/24 23:00 64 O2 Flow Rate 08/22/24 08:34 3 08/22/24 07:38 2 08/22/24 07:38 08/22/24 02:45 2 08/22/24 01:05 2 08/21/24 23:25 2 08/21/24 23:00 PG Care Time/CCT Total # of Minutes Spent Total Time Spent with Patient: Total time spent is greater than 50% in coordination of care (as documented) at patient's floor/unit and/or counseling patient: Coding Level of Care Code 56365 SUB INP/OBS CARE MIN Diagnoses Diabetic foot infection E11.628; L08.9 Acute on chronic heart failure with preserved ejection fraction (HFpEF) I50.33 Acute hypoxemic respiratory failure J96.01 Peripheral arterial disease I73.9 Persistent atrial fibrillation I48.19 Nausea & vomiting R11.2 Diabetes mellitus type 2 in obese E11.69; E66.9 Hyperthyroidism E05.90 Anemia D64.9 Sacral wound S31.000A
[2024-08-22] MEDS: HYDROmorphone INJ 0.5 MG/0.5 ML SYR IV PRN ×2 (11:47→17:19)
[2024-08-22] MEDS: POLYETHYLENE (MIRALAX) 17 GM PACK PO SCH (20:05)
[2024-08-23 06:06] LABS: Basophils # (auto) 0.04 K/uL (0.00-0.20); Basophils % (auto) 0.3 %; Eosinophils # (auto) 0.09 K/uL (0.00-0.50); Eosinophils % (auto) 0.7 %; Hematocrit (blood only) 26.4 % (37.0-47.0); Hemoglobin 8.3 g/dl (12.0-16.0); Immature Granulocytes # (auto) 0.14 K/uL (0.01-0.20); Immature Granulocytes % (auto) 1.1 %; Lymphocytes # (auto) 0.66 K/uL (1.20-3.40); Lymphocytes % (auto) 5.4 %; Mean Corpuscular Hgb Conc 31.4 g/dL (32.0-36.0); Mean Platelet Volume 10.9 fL (9.4-12.4); Monocytes # (auto) 0.76 K/uL (0.11-0.59); Monocytes % (auto) 6.2 %; Neutrophils % (auto) 86.3 %; Platelet Count 253 K/uL (130-400); RDW Coefficient of Variation 17.8 % (11.5-14.5); RDW Standard Deviation 55.3 fL (36.4-46.3); Red Blood Count 3.07 M/uL (4.20-5.40); White Blood Count 12.19 K/ul (4.8-10.8)
[2024-08-23 06:23] LABS: Creatinine Clr Calc Pharmacy 180.9 ml/min
--- NOTE | 2024-08-23 07:17 | Orthopedic Progress Note ---
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 will follow up with me in 2-3 weeks for wound check no plans for additional orthopaedic intervention during this admission podiatry managing LLE Admission and Anticipated Discharge Date Admission Date: July 31, 2024 Subjective POD3 s/p R BKA patient resting comfortably. has not yet received IPOP Review of Systems Review of Systems: Unremarkable unless otherwise stated above Physical Exam Physical Exam: RLE: knee immobilizer in place dressings c/d/i Results & Data Vital Signs (Past 12 Hours) Vital Signs Temp Pulse Pulse Resp BP Pulse Ox O2 Del Method 08/23/24 03:30 37.2 C 67 16 126/65 92 Nasal Cannula 08/23/24 00:05 36.9 C 70 16 135/67 95 Nasal Cannula 08/22/24 23:00 60 08/22/24 22:42 Nasal Cannula O2 Flow Rate 08/23/24 03:30 2 08/23/24 00:05 2 08/22/24 23:00 08/22/24 22:42 2
--- NOTE | 2024-08-23 09:52 | Hospitalist Progress Note ---
Date of Service August 23, 2024 Assessment & Plan (1) Diabetic foot infection: Plan: Bilateral foot ulcers with necrosis, osteomyelitis of dorsal right foot wound wound debridement 08/05 with podiatry and angiogram 08/06 with stent placed in right external iliac artery and angioplasty to right SFA With ongoing poor wound healing secondary to PAD and long h/o diabetes Wound cx w/ Pseudomonas aeruginosa, Kerstersia gyiorum, and Alcaligenes faecalis Surgical bone cx from [place] showed low counts mixed probable skin microbiota; [place] bone pathology: osteonecrosis/osteomyelitis Blood cultures 07/31 no growth MRI foot shows OM at base of fifth MT, no OM in leg Continue Zosyn, ID following as will need prolonged course IV abx --> however, s/p BKA, can likely stop antibiotics Consult Ortho appreciated--> s/p right leg BKA 08/20 POD#3 Orthotics consulted to assess for prothesis after BKA Ok to be weight bearing on left for PT/OT as per my d/w Podiatry Continue Tylenol, oxycodone, and IV dilaudid prn pain (2) Acute on chronic heart failure with preserved ejection fraction (HFpEF): Plan: With anasarca, ascites, and pulm edema; noncompliant on home diuretic Echo 08/01/24 showed EF 60 to 65%, no motion wall abnormalities, right ventricle mildly dilated, severe pulmonary hypertension, worsening tricuspid regurg BNP 1480 on admission and was significantly hypervolemic Continue spironolactone 100mg daily Continue lasix 40mg po qAM Follow BMP, Magnesium (3) Acute hypoxemic respiratory failure: Plan: Requiring 2L here and drops to 60-70s on RA when she takes off her O2 Wean off O2 as tolerated Continue with diuretics (4) Peripheral arterial disease: Plan: PAD with CAD -bilateral LE angiogram 08/06 with stent to RT External iliac and angioplasty to RT SFA Continue daily baby aspirin, high intensity statin; Plavix x 1 month (until 09/07) Plan for LT SFA intervention as outpatient (5) Persistent atrial fibrillation: Plan: Chronic history of tachybradycardia syndrome and paroxysmal atrial fibrillation on Eliquis Cardiology following - will need outpatient follow-up with electrophysiology to discuss pacemaker for tachybradycardia syndrome- not a candidate for pacemaker at this time given wounds TSH shows hypothyroidism; possibly secondary to amiodarone use vs overmedication with methimazole-methimazole is on hold Continue Eliquis Continue amiodarone 200 mg p.o. daily (6) Nausea & vomiting: Plan: Continue antiemetics as needed (7) Diabetes mellitus type 2 in obese: Plan: Holding home Januvia, discontinued diabetic diet to liberalize for improved nutrition Hemoglobin A1c well-controlled at 5.7% NovoLog discontinued 08/03 as patient needing minimal insulin and hypoglycemic at times - glucose stable/normal-dcd accuchecks (8) Hyperthyroidism: Plan: Continue to hold methimazole and repeat TSH in another 2 weeks around 08/30 (9) Anemia: Plan: chronic, microcytic anemia, Was given IV Venofer 08/08 after iron deficiency confirmed on iron panel f/u post op CBC, keep heme >7.0 Had post operative anemia, was given 1 unit PRBC 08/21, , hemoglobin improved to > 8.0 (10) Sacral wound: Plan: Pressure ulcers of right and left buttock, stage 3 - wound care following Offload pressure Plan Chronic stable diagnoses: Depression continue sertraline Hypocalcemia - stop vitamin D and calcium supplement as she is refusing to take it HTN - discontinued metoprolol, continue with po Lasix GERD-continue PPI VTE ppx: Eliquis now on hold for BKA,on bridging Lovenox and then resume Eliquis post-BKA when ok with Ortho Code status: full Dispo: Spoke with case management, awaiting rehab placement Admission and Anticipated Discharge Date Admission Date: July 31, 2024 Subjective No events overnight. Pt resting comfortably in bed. Review of Systems Review of Systems: CONST: Negative for fever, body aches and chills. HENT: Negative for neck pain/stiffness, headache, congestion, sore throat, swelling. EYES: Negative for discharge/pain or vision changes. RESP: Negative for cough/hemoptysis and shortness of breath. CV: Negative chest pain, difficulty breathing, palpitations. ABD: Negative pain, nausea, vomiting. : Negative increase frequency, dysuria, blood in urine or stool. MUSC: Negative for muscle aches, edema. SKIN: Negative rash, lesions/sores. NEURO: Negative headache, dizziness, weakness. Physical Exam Physical Exam: GENERAL APPEARANCE NAD, activity normal for age, well developed/ well nourished, no cyanosis, pallor, or diaphoresis. EYES lids/conjunctiva normal. EARS/NOSE/THROAT Mucous membranes moist, nares normal, lips/teeth normal uvula midline without oral pharyngeal erythema, exudate or swelling TMs normal bilaterally. No lymphangitis/lymphedema. HEAD/NECK normocephalic atraumatic, no facial trauma, neck is supple. RESPIRATORY respiratory effort normal, speaks in full sentences, no tripod position, no accessory muscle use. Lungs clear to auscultation without rhonchi, wheezes, rales CARDIAC Regular rate and rhythm, no edema. ABDOMINAL Distended. No pulsatile masses on exam, rebound tenderness, Ryan sign or pain over Mcburney's point. MUSCLES/EXTREMITIES No abnormal range of motion, no swelling. Right leg dressing C/D/I SKIN Warm, pink and dry. No rashes, dermatoses, petechiae or lesions. NEUROLOGICAL Speech is clear and appropriate. Normal level of consciousness. Gait and coordination are normal. 5/5 strength in all extremities. PSYCH Normal mood and affect. Judgement/competence is appropriate Results & Data Results & Data Vital Signs (Past 12 Hours) Vital Signs Temp Pulse Pulse Resp BP Pulse Ox O2 Del Method 08/23/24 07:38 37.3 C 70 17 131/64 93 Nasal Cannula 08/23/24 03:30 37.2 C 67 16 126/65 92 Nasal Cannula 08/23/24 00:05 36.9 C 70 16 135/67 95 Nasal Cannula 08/22/24 23:00 60 08/22/24 22:42 Nasal Cannula O2 Flow Rate 08/23/24 07:38 3 08/23/24 03:30 2 08/23/24 00:05 2 08/22/24 23:00 08/22/24 22:42 2 PG Care Time/CCT Total # of Minutes Spent Total Time Spent with Patient: Total time spent is greater than 50% in coordination of care (as documented) at patient's floor/unit and/or counseling patient: Coding Level of Care Code 13880 SUB INP/OBS CARE 2/35MIN Diagnoses Diabetic foot infection E11.628; L08.9 Acute on chronic heart failure with preserved ejection fraction (HFpEF) I50.33 Acute hypoxemic respiratory failure J96.01 Peripheral arterial disease I73.9 Persistent atrial fibrillation I48.19 Nausea & vomiting R11.2 Diabetes mellitus type 2 in obese E11.69; E66.9 Hyperthyroidism E05.90 Anemia D64.9 Sacral wound S31.000A
[2024-08-23 11:37] LABS: Fibrinogen 397 mg/dl (184-400); INR 1.2 (0.9-1.1); Partial Thromboplastin Ratio 1.7; Partial Thromboplastin Time 46 Seconds (21-31); Prothrombin Time 12.5 Seconds (9.0-12.0)
[2024-08-23 12:09] LABS: ANTI-Xa, LMWH(Low Molecular Wt 0.61 IU/ML (< 0.10)
[2024-08-23] MEDS: APIXABAN 5 MG TABLET PO SCH (21:28)
[2024-08-24 08:11] LABS: Basophils # (auto) 0.04 K/uL (0.00-0.20); Basophils % (auto) 0.3 %; Eosinophils # (auto) 0.02 K/uL (0.00-0.50); Eosinophils % (auto) 0.2 %; Hematocrit (blood only) 25.4 % (37.0-47.0); Hemoglobin 7.9 g/dl (12.0-16.0); Immature Granulocytes % (auto) 0.8 %; Lymphocytes # (auto) 0.72 K/uL (1.20-3.40); Lymphocytes % (auto) 5.6 %; Mean Corpuscular Hemoglobin 27.1 pg (25.0-34.0); Mean Corpuscular Hgb Conc 31.1 g/dL (32.0-36.0); Mean Corpuscular Volume 87.3 fL (80.0-100.0); Mean Platelet Volume 10.6 fL (9.4-12.4); Monocytes # (auto) 0.64 K/uL (0.11-0.59); Neutrophils # (auto) 11.29 K/uL (1.40-6.50); Neutrophils % (auto) 88.1 %; Platelet Count 255 K/uL (130-400); RDW Standard Deviation 57.8 fL (36.4-46.3); Red Blood Count 2.91 M/uL (4.20-5.40); White Blood Count 12.81 K/ul (4.8-10.8)
[2024-08-24 08:28] LABS: BUN Creatinine Ratio 25.6 (10-20); Calcium 7.5 mg/dl (8.6-10.3); Creatinine Clr Calc Pharmacy 129.9 ml/min; Potassium 4.4 mmol/L (3.5-5.1)
[2024-08-24 08:40] LABS: Hypochromasia Present; Polychromasia 1+
--- NOTE | 2024-08-24 10:36 | Hospitalist Progress Note ---
Date of Service August 24, 2024 Assessment & Plan (1) Diabetic foot infection: Plan: Bilateral foot ulcers with necrosis, osteomyelitis of dorsal right foot wound wound debridement 08/05 with podiatry and angiogram 08/06 with stent placed in right external iliac artery and angioplasty to right SFA S/P right leg BKA 08/20 POD#4 Orthotics consulted to assess for prothesis after BKA Continue Tylenol, oxycodone, and IV dilaudid prn pain (2) Acute on chronic heart failure with preserved ejection fraction (HFpEF): Plan: Continue spironolactone 100mg daily Continue lasix 40mg po qAM Follow BMP, Magnesium (3) Acute hypoxemic respiratory failure: Plan: Resolved (4) Peripheral arterial disease: Plan: PAD with CAD -bilateral LE angiogram 08/06 with stent to RT External iliac and angioplasty to RT SFA Continue daily baby aspirin, high intensity statin; Plavix (until 09/07) Plan for LT SFA intervention as outpatient (5) Persistent atrial fibrillation: Plan: Continue Eliquis Continue amiodarone 200 mg p.o. daily (6) Nausea & vomiting: Plan: Continue antiemetics as needed (7) Diabetes mellitus type 2 in obese: Plan: Con't RISS (8) Hyperthyroidism: Plan: Continue to hold methimazole and repeat TSH in another 2 weeks around 08/30 (9) Anemia: Plan: chronic, microcytic anemia, Had post operative anemia, was given 1 unit PRBC 08/21, , hemoglobin improved to > 8.0 Heme 7.9 today (10) Sacral wound: Plan: Pressure ulcers of right and left buttock, stage 3 - wound care following Offload pressure Plan Dispo: Spoke with case management, SNF placement. Admission and Anticipated Discharge Date Admission Date: July 31, 2024 Subjective No events overnight. Pt resting comfortably in bed. Review of Systems Review of Systems: CONST: Negative for fever, body aches and chills. HENT: Negative for neck pain/stiffness, headache, congestion, sore throat, swelling. EYES: Negative for discharge/pain or vision changes. RESP: Negative for cough/hemoptysis and shortness of breath. CV: Negative chest pain, difficulty breathing, palpitations. ABD: Negative pain, nausea, vomiting. : Negative increase frequency, dysuria, blood in urine or stool. MUSC: Negative for muscle aches, edema. SKIN: Negative rash, lesions/sores. NEURO: Negative headache, dizziness, weakness. Physical Exam Physical Exam: GENERAL APPEARANCE NAD, activity normal for age, well developed/ well nourished, no cyanosis, pallor, or diaphoresis. EYES lids/conjunctiva normal. EARS/NOSE/THROAT Mucous membranes moist, nares normal, lips/teeth normal uvula midline without oral pharyngeal erythema, exudate or swelling TMs normal bilaterally. No lymphangitis/lymphedema. HEAD/NECK normocephalic atraumatic, no facial trauma, neck is supple. RESPIRATORY respiratory effort normal, speaks in full sentences, no tripod posi tion, no accessory muscle use. Lungs clear to auscultation without rhonchi, wheezes, rales CARDIAC Regular rate and rhythm, no edema. ABDOMINAL Distended. No pulsatile masses on exam, rebound tenderness, Ryan sign or pain over Mcburney's point. MUSCLES/EXTREMITIES No abnormal range of motion, no swelling. Right BKA leg dressing C/D/I SKIN Warm, pink and dry. No rashes, dermatoses, petechiae or lesions. NEUROLOGICAL Speech is clear and appropriate. Normal level of consciousness. Gait and coordination are normal. 5/5 strength in all extremities. PSYCH Normal mood and affect. Judgement/competence is appropriate Results & Data Results & Data Vital Signs (Past 12 Hours) Vital Signs Temp Pulse Pulse Resp BP BP Pulse Ox 08/24/24 07:45 08/24/24 07:41 37 C 63 18 103/63 94 08/24/24 05:40 63 08/24/24 03:50 36.7 C 66 16 100/60 91 08/23/24 22:35 36.7 C 70 18 108/65 91 O2 Del Method O2 Flow Rate 08/24/24 07:45 Nasal Cannula 3 08/24/24 07:41 Nasal Cannula 3 08/24/24 05:40 08/24/24 03:50 Nasal Cannula 3 08/23/24 22:35 Nasal Cannula 2 PG Care Time/CCT Total # of Minutes Spent Total Time Spent with Patient: Total time spent is greater than 50% in coordination of care (as documented) at patient's floor/unit and/or counseling patient: Coding Level of Care Code 56596 SUB INP/OBS CARE 2/35MIN Diagnoses Diabetic foot infection E11.628; L08.9 Acute on chronic heart failure with preserved ejection fraction (HFpEF) I50.33 Acute hypoxemic respiratory failure J96.01 Peripheral arterial disease I73.9 Persistent atrial fibrillation I48.19 Nausea & vomiting R11.2 Diabetes mellitus type 2 in obese E11.69; E66.9 Hyperthyroidism E05.90 Anemia D64.9 Sacral wound S31.000A
--- NOTE | 2024-08-24 12:00 | Orthopedic Progress Note ---
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 will follow up with me in 2-3 weeks for wound check no plans for additional orthopaedic intervention during this admission podiatry managing LLE Admission and Anticipated Discharge Date Admission Date: July 31, 2024 Subjective No events overnight. Pt resting comfortably in bed. Review of Systems Review of Systems: Unremarkable unless otherwise stated above Physical Exam Physical Exam: RLE: knee immobilizer in place dressings c/d/i Results & Data Vital Signs (Past 12 Hours) Vital Signs Temp Pulse Pulse Resp BP Pulse Ox O2 Del Method 08/24/24 10:59 36.9 C 65 16 102/64 92 Nasal Cannula 08/24/24 07:45 Nasal Cannula 08/24/24 07:41 37 C 63 18 103/63 94 Nasal Cannula 08/24/24 05:40 63 08/24/24 03:50 36.7 C 66 16 100/60 91 Nasal Cannula O2 Flow Rate 08/24/24 10:59 3 08/24/24 07:45 3 08/24/24 07:41 3 08/24/24 05:40 08/24/24 03:50 3
[2024-08-25] MEDS: SODIUM CHLORIDE 0.9% 500 ML IV ONE (06:06)
[2024-08-25 15:06] VITALS: BP 105/59; PULSE 67; RESP 18; TEMP 98.4; O2SAT 90
--- NOTE | 2024-08-25 16:57 | Orthopedic Progress Note ---
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 will follow up with me in 1-2 weeks for wound check (we will coordinate with SNF once she is discharged) no plans for additional orthopaedic intervention during this admission podiatry managing LLE Admission and Anticipated Discharge Date Admission Date: July 31, 2024 Subjective No events overnight. Pt resting comfortably in bed. Review of Systems Review of Systems: Unremarkable unless otherwise stated above Physical Exam Physical Exam: RLE: knee immobilizer in place dressings c/d/i Results & Data Vital Signs (Past 12 Hours) Vital Signs Temp Pulse Pulse Resp BP BP Pulse Ox 08/25/24 15:06 36.9 C 67 18 105/59 L 90 08/25/24 14:39 36.8 C 59 L 16 112/58 L 105/66 98 08/25/24 11:27 36.8 C 59 L 16 105/66 98 08/25/24 08:43 08/25/24 07:41 36.8 C 60 18 112/58 L 98 08/25/24 05:48 56 L O2 Del Method O2 Flow Rate 08/25/24 15:06 Nasal Cannula 4 08/25/24 14:39 08/25/24 11:27 Nasal Cannula 4 08/25/24 08:43 Nasal Cannula 3 08/25/24 07:41 Nasal Cannula 4 08/25/24 05:48
--- NOTE | 2024-08-25 17:46 | Hospitalist Progress Note ---
Date of Service August 25, 2024 Assessment & Plan Admission and Anticipated Discharge Date Admission Date: July 31, 2024 Results & Data Results & Data Vital Signs (Past 12 Hours) Vital Signs Temp Pulse Pulse Resp BP BP Pulse Ox 08/25/24 15:06 98.4 F 67 18 105/59 L 90 08/25/24 14:39 98.2 F 59 L 16 112/58 L 105/66 98 08/25/24 11:27 98.2 F 59 L 16 105/66 98 08/25/24 08:43 08/25/24 07:41 98.2 F 60 18 112/58 L 98 08/25/24 05:48 56 L O2 Del Method O2 Flow Rate 08/25/24 15:06 Nasal Cannula 4 08/25/24 14:39 08/25/24 11:27 Nasal Cannula 4 08/25/24 08:43 Nasal Cannula 3 08/25/24 07:41 Nasal Cannula 4 08/25/24 05:48 PG Care Time/CCT Total # of Minutes Spent Total Time Spent with Patient: Total time spent is greater than 50% in coordination of care (as documented) at patient's floor/unit and/or counseling patient: Coding
--- NOTE | 2024-08-25 17:50 | Discharge Summary ---
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 Orthotics consulted to assess for prothesis after BKA, will need to see in foll ow up first Continue Tylenol, oxycodone, and IV dilaudid prn pain (2) Acute on chronic heart failure with preserved ejection fraction (HFpEF): Continue spironolactone 100mg daily Continue lasix 40mg po qAM Follow BMP, Magnesium (3) Acute hypoxemic respiratory failure: Resolved (4) Peripheral arterial disease: PAD with CAD -bilateral LE angiogram 08/06 with stent to RT External iliac and angioplasty to RT SFA Continue daily baby aspirin, high intensity statin; Plavix (until 09/07) Plan for LT SFA intervention as outpatient (5) Persistent atrial fibrillation: Continue Eliquis, pt states only takes once a day Continue amiodarone 200 mg p.o. daily (6) Nausea & vomiting: Continue antiemetics as needed (7) Diabetes mellitus type 2 in obese: diet controlled management (8) Hyperthyroidism: Continue to hold methimazole and repeat TSH in another 2 weeks around 08/30 (9) Anemia: chronic, microcytic anemia, Had post operative anemia, was given 1 unit PRBC 08/21, , hemoglobin improved to > 8.0 Heme 7.9 today (10) Sacral wound: Pressure ulcers of right and left buttock, stage 3 - wound care following Offload pressure Plan Dispo: Spoke with case management, SNF placement. Notes For Next Care Provider will need to try to continue to persuade tata follow Cr with diuretics repeat tsh T4 next week Admission HPI Per Admitting Provider The patient is a 69-year-old female with a past medical history including diabetic foot infection, bilateral lower extremity cellulitis, hypertension, CAD, persistent atrial fibrillation, significant bradycardia, dyslipidemia, depression with anxiety, chronic respiratory failure with hypoxia, diabetes mellitus type 2,, hyperparathyroidism, long-term anticoagulant use, and history of atrial fibrillation with RVR. She presents to the emergency department via EMS as noted above. Active medical issues at this time include sinus bradycardia with heart rate in the upper 30s to low 40s, significant bilateral lower extremity infections, right greater than left. She is also noted to have multiple stage II pressure ulcers to sacrum and inferior gluteal folds. Right anterior ankle and upper foot with open wounds, with necrotic tissue present. Discharge Plan Discharge Items Patient Disposition: Transfer Assisted Fac Reason For Visit: TACHYBRADY SYN,ANASARCA,LE CELLULITIS,SACRAL DECUB Discharge Diagnosis: diabetic foot infection s/p BKA Right acute on chronic HFpEF persistent AFib anemia of chronic inflamation Activity: Per Instructions section Activity Comment: per PT with recent amputation Non-emergency contact: Primary Care Provider and Surgeon Call non-emergency contact if: your symptoms worsen Follow-up/Referrals: Jean-Claude Tolbert MD [Physician] - (Follow up in 2 weeks for non-invasive vascular testing ) Modesta Mantilla PA-C [Physician Inspector And Tester] - 08/13/24 10:00 am (Congestive Heart Failure Program Appointment Information Early follow up is essential to managing your heart failure. An appointment has been scheduled for you with the [facility] Heart [facility] Program within 7 days of discharge. Anticipate this visit to be 30-60 minutes long. Please expect a filemaker developer phone call from one of our nurses approximately 48 hours from discharge. They will also be placing an order for lab work to be completed 1-2 days prior to your heart failure follow up appointment. Please be sure to have this done so we can go over the results when you come in. Office Location The cardiology office building is located in front of the hospital at [address] [facility]. Bring the following with you to your follow-up doctor appointments: Please bring your daily weight log any discharge paperwork all of your medication bottles with you to this visit. ) Zach Castelan MD [Primary Care Provider] - Diet: Carb Consistent or DM2 Addtl Attending Provider Instructions: You will take Plavix for 1 month after your angiogram, on 08/06. You will need to follow-up with vascular medicine outpatient. You are to have repeat noninvasive vascular testing 2 weeks from your angiogram, on 08/06. They will also plan for left superficial femoral artery intervention as an outpatient procedure. You will need outpatient follow-up with electrophysiology regarding possible pacemaker placement for tachybradycardia syndrome. You were in and out of A- fib, tachycardia, and bradycardia during your admission. This is currently controlled on amiodarone but would be best long-term to be controlled with a pacemaker. You will need repeat blood work on 08/15 to recheck you thyroid function, as it was showing hypothyroidism, as discussed, during hospitalization. You are to continue to hold your home thyroid medication known as methimazole. It is possible that this medication was over correcting your previously diagnosed hyperthyroidism. Amiodarone can also cause hypothyroidism. Pending Studies at Discharge: No Stand-Alone Forms: My [facility] Skilled Items Patient informed of condition?: Yes DNR: No Discharge Level of Care: Skilled Communicable Disease: No Discharge Prognosis: Stable Lines: None Urinary Catheter: Yes Medications and DC Order Prescriptions: New clopidogrel 75 mg Tablet 75 mg PO QAM Qty: 30 4RF atorvastatin 40 mg Tablet 80 mg PO QAM Qty: 30 0RF cholestyramine-aspartame [Prevalite] 4 gram Powder In Packet 1 ea PO BID@1000,2200 Qty: 60 0RF spironolactone 100 mg Tablet 100 mg PO QAM Qty: 30 4RF polyethylene glycol 3350 [Miralax] 17 gram Powder In Packet 17 g PO DAILY Qty: 30 0RF oxycodone 10 mg tablet 10 mg PO Q4H PRN (Reason: pain) Qty: 30 0RF oxycodone 10 mg tablet 10 mg PO Q4H PRN (Reason: pain) Qty: 30 0RF Continued amiodarone 200 mg tablet 200 mg PO QAM oxycodone 10 mg tablet 10 mg PO Q4 PRN (Reason: Pain) Spiriva Respimat 1.25 mcg/actuation mist 2 puff INHALATION DAILY PRN (Reason: Shortness Of Breath) Rx Instructions: ORDERED ROUTINE BUT PATIENT ONLY USE NEEDED pantoprazole 40 mg tablet,delayed release (DR/EC) 40 mg PO QAM Eliquis 5 mg tablet 5 mg PO QAM Rx Instructions: ORDERED BID BUT PT ONLY TAKES IN THE MORNING..STATES 2ND PILL OF THE DAY MAKES HER WAY TOO COLD Changed furosemide 40 mg tablet 40 mg PO DAILY Qty: 0 0RF potassium chloride [Klor-Con M20] 20 mEq tablet,ER particles/crystals 40 meq PO QAM Qty: 0 0RF sertraline [Zoloft] 50 mg tablet 50 mg PO DAILY Qty: 0 0RF Rx Instructions: ORDERED ROUTINE BUT PT ONLY USES FOR ANXIETY Discontinued metoprolol succinate 25 mg tablet extended release 24 hr 25 mg PO BID Qty: 60 11RF Januvia 100 mg tablet 100 mg PO QDB Rx Instructions: TAKE WITH FOOD methimazole 10 mg tablet 10 mg PO QAM aspirin [Aspirin Low-Strength] 81 mg Tablet,Delayed Release (Dr/Ec) 81 mg PO QAM Discharge Orders: Discharge Order (Routine); Ordered 08/25/24 Ordered By: Boston White Admission Data Admit Date/Time: 07/31/24 20:58 Attending Provider: Boston White Admit Provider: Ramon Rodriguez Primary Care Provider: Zach Castelan Other Providers: Fior Sheehan; Reid Hernandez; Italo Melendrez; Jean-Claude Tolbert; Ahsan Farr; Amy Nava; Luiza Davalos; Jean-Claude Riley; Camron Norman; Adelfo Muller; Tommy Silvestre; Boston White Other Interventions: Discharge Summary Assessment (RN) Last Done: 08/25/24 14:39 Hospital Stay Data Consultations 07/31/24 19:52 ED Decision to Admit Stat 07/31/24 23:18 Consult Cardiology Routine 08/03/24 10:19 Consult Podiatry Routine 08/03/24 16:04 Consult Vascular Surgery Routine 08/04/24 05:48 [facility] CHF Program Referral Routine 08/05/24 14:14 Consult Infectious Diseases Routine 08/13/24 16:05 Consult Vascular Surgery Routine 08/17/24 10:42 Consult Orthopedic Surgery Routine Procedures Performed Operation Date: 08/20/24 11:00 Actual Procedures p Right Below Knee Amputation(Right) - Ahsan Farr DO Diagnostic Imagining Performed 07/31/24 17:10 CT Abd and Pelvis [CT abd pelvis IV con only] Stat 07/31/24 18:36 CT for pulmonary embolism PE [CT angio chest PE protocol] Stat 08/03/24 09:55 US arterial duplex LE BI Routine 08/06/24 07:04 CL Cath Imgs for PACS use only Routine 08/14/24 13:18 CT Abd and Pelvis [CT abd pelvis IV con only] Stat 08/16/24 08:24 MR foot RT wo/w con Urgent MRI Leg [MR lower leg RT wo/w con] Urgent US doppler leg [US arterial duplex LE RT] Urgent 08/20/24 09:27 US - OR guided needle placemen Routine Pending Results Patient Have Any Pending Studies at Discharge: No Discharge Instructions Given to Patient (Per Discharging Provider) You will take Plavix for 1 month after your angiogram, on 08/06. You will need to follow-up with vascular medicine outpatient. You are to have repeat noninvasive vascular testing 2 weeks from your angiogram, on 08/06. They will also plan for left superficial femoral artery intervention as an outpatient procedure. You will need outpatient follow-up with electrophysiology regarding possible pacemaker placement for tachybradycardia syndrome. You were in and out of A- fib, tachycardia, and bradycardia during your admission. This is currently controlled on amiodarone but would be best long-term to be controlled with a pacemaker. You will need repeat blood work on 08/15 to recheck you thyroid function, as it was showing hypothyroidism, as discussed, during hospitalization. You are to continue to hold your home thyroid medication known as methimazole. It is possible that this medication was over correcting your previously diagnosed hyperthyroidism. Amiodarone can also cause hypothyroidism. Total Time Total Time Spent Total Time Spent (In Minutes): greater than 30 minutes were required to complete discharge Coding Level of Care Code 21135 INP/OBS DISCH >30 MIN Diagnoses Diabetic foot infection E11.628; L08.9 Acute on chronic heart failure with preserved ejection fraction (HFpEF) I50.33 Acute hypoxemic respiratory failure J96.01 Peripheral arterial disease I73.9 Persistent atrial fibrillation I48.19 Nausea & vomiting R11.2 Diabetes mellitus type 2 in obese E11.69; E66.9 Hyperthyroidism E05.90 Anemia D64.9 Sacral wound S31.000A
== END 2024-08-25 19:05 | DRG 616 ==
LOC: ED 16:56 → 2E 20:58 → SUATTDRO 20:58 → 2E 22:58 → 2N 08-23 20:06
PROC: CLB.AEB (2024-08-06 08:30)

== ENCOUNTER 2024-09-11 00:32 | Inpatient (IN) ==
[2024-09-11] MEDS: SODIUM CHLORIDE 0.9% 1,000 ML IV SCH (00:47)
--- NOTE | 2024-09-11 00:56 | Emergency Department Note ---
Impression & Plan Septic shock, Acute UTI, Bilateral pneumonia Admit to the [facility] ED Provider Note NAME: ANDREW BROWNE AGE: 69 SEX: Female INFORMANT: EMS and the patient's daughter ED PROVIDER(S): Asia Acevedo DO CHIEF COMPLAINT: confusion; hypotension PLAN: Disposition: admission To the [facility] MEDICAL DECISION MAKING: this is a 69-year-old female patient with a complicated past medical history who presents to the emergency department from [facility] with a 1 week history of being ill. Staff noticed the patient was increasingly confused throughout the evening. Vital signs showed the patient was hypotensive and tachycardic. EMS was called and she was transported here. The patient's daughter arrived earlier today and explains that the patient has had very little oral intake and increasing confusion. patient does have an indwelling Gould catheter with very little urine output in the bag. Patient has known sacral decubitus on her buttocks. 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 She was discharged on August 25. On presentation today, the patient was hypotensive and tachycardic with a fever. This was consistent with acute septic shock. Urinalysis appears to be infected. The urinary catheter appeared to be obstructed and was replaced with a new catheter. And is now currently draining. Chest x-ray shows evidence of bilateral pneumonias with the left being greater than the right. Laboratory studies reveal a white blood cell count of 14,000. Lactate is 1.2. Procalcitonin is 4.8. Patient is anemic with a hemoglobin of 9.5. BUN is 27 and creatinine is 0.6. Patient was immediately given 2 L of IV normal saline solution for evidence of significant dehydration and hypotension. Patient's source seemed to be her urine potentially her lungs. She was initially given a dose of IV Zosyn and then went on to receive a dose of IV daptomycin. After 2 L of saline, the blood pressure only rebounded slightly. She was then placed on IV Levophed. I did have a discussion with the patient with her daughter present about her wishes. She would like to be a full code. I discussed the case with the [facility] and they will evaluate for further inpatient care. Care/management discussed with: The patient's daughter, the community outreach manager, and the [place] Hospitalist Triage Nursing notes: reviewed and agree With them. Vital Signs: reviewed and remarkable for tachycardia, hypotension and fever Additional History obtained from: EMS and the patient's daughter Chronic Medical/Social Conditions affecting care: significant uncontrolled diabetes with recent BKA secondary to diabetic ulcers. Patient is currently at [facility]. Prior/ Outside/ External records reviewed: I did review the patient's most recent admission to the hospital. Differential Diagnosis: Sepsis, septic shock, UTI, pneumonia Diagnostics, independently interpreted by me: ECG: atrial fibrillation with rapid ventricular response at a rate of 126. There is T wave inversion in the anterior leads with some ST segment depression noted. This is concerning for ischemia. Cardiac Monitoring: A-fib with RVR at a rate of 132 Imaging studies: portable chest x-ray: bilateral lower lobe infiltrates with the left being greater than the right as per my independent interpretation. HPI: 69 year old Female arrives for evaluation of Fever and illness. Staff noticed the patient was increasingly confused throughout the evening. Vital signs showed the patient was hypotensive and tachycardic. EMS was called and she was transported here. The patient's daughter arrived earlier today and explains that the patient has had very little oral intake and increasing confusion. patient does have an indwelling Gould catheter with very little urine output in the bag. Patient has known sacral decubitus on her buttocks. 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 She was discharged on August 25.. PAST MEDICAL HISTORY: See Below, PAST SURGICAL HISTORY: See Below, SOCIAL HISTORY: See Below, HOME MEDICATIONS: see list ALLERGIES: see list VITALS: See Below PHYSICAL EXAMINATION: HEENT: Head - normocephalic and atraumatic. Pupils are equal, round, and reactive to light. Extraocular eye muscles are intact, and sclera are anicteric. Nose - moist nasal mucosa without discharge. Mouth - extremely dry buccal mucosa. Oropharynx is nonerythematous and there is no tonsillar exudate or edema noted. Neck: Supple; no cervical lymphadenopathy or nuchal rigidity. Heart: Irregularly irregular rhythm with a tachycardic rate. There is a normal S1 and S2 with no murmurs, clicks, or gallops appreciated. Lungs: Clear to auscultation bilaterally with no wheezes, rales, or rhonchi. Abdomen: Soft, completely nontender, nondistended, with good bowel sounds. There are no palpable pulsatile masses or hepatosplenomegaly. There is no guarding, rigidity, or rebound noted. Extremities: Right BKA: Stump appears to be healing with granulation tissue in place and no signs of infection. Left lower extremity: Cold to the touch with chronic ulcers noted. Skin: pale,warm and dry with extremely poor turgor and no rashes. significant skin breakdown to the sacrum Emergency Department treatment: collator hand, IV normal saline bolus-1959 mL ( 2 liters), IV Zosyn, IV daptomycin, IV Levophed Emergency department course: the patient was evaluated in room A-10. A septic protocol was performed. The patient appeared to be in septic shock and had a second IV lock initiated and was bolused with 2 L of normal saline solution. A bladder scan was performed which showed 200 of urine but the patient is a significantly distended abdomen that was tender. the urinary catheter did not appear to be draining so it was replaced with a new one and began to drain. An order was placed for continuous cardiac monitoring. The patient was in atrial fibrillation with a rapid ventricular response at a rate of 132. blood cultures were obtained. The patient was started on IV Zosyn. I did review previous cultures and records. For the possibility of sepsis/bacteremia, the patient was started on IV daptomycin. Patient's blood pressure remained marginal despite receiving 2 L of IV crystalloid. She was then started on IV Levophed. I have personally spent greater than 30 minutes of critical care time in the direct management of this patient. This includes bedside care, interpretation of diagnostic studies, and testing, discussion with consultants, patient, and family members, and other required patient management activities. This 30 minutes is in excess of all separately billable procedures. 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 Hypocalcemia Anemia Tricuspid regurgitation Sacral decubitus ulcer, stage II Bradycardia with 31-40 beats per minute Anasarca Pneumonia (Acute) Pulmonary edema (Acute) Nausea & vomiting (Acute) Acute hypoxemic respiratory failure (Acute) Diabetic foot infection (Acute) Dyslipidemia Persistent atrial fibrillation Neuroenteric cyst Depression with anxiety Acute respiratory failure with hypoxia Chronic lower back pain Diabetes mellitus type 2 in obese Dermatitis Mediastinal lymphadenopathy Hypomagnesemia Hyperthyroidism Abnormal chest CT Neck pain Rapid atrial fibrillation Elevated troponin (Acute) Degenerative arthritis of cervical spine Atrial fibrillation Chest pain Rapid atrial fibrillation (Acute) Medical History Tachy-reema syndrome Encounter for pre-operative examination Peripheral arterial disease Osteomyelitis of foot, right, acute 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 Pulmonary hypertension Paroxysmal atrial fibrillation Bradycardia Acute on chronic heart failure with preserved ejection fraction (HFpEF) CAD (coronary artery disease) Ex-smoker COPD with emphysema NSTEMI (non-ST elevated myocardial infarction) Anticoagulant long-term use SOB (shortness of breath) Hypertension Social History Smoking Status: Unknown if ever smoked Tobacco Type: Cigarettes Second Hand Exposure: No; Hx Alcohol Use: No Hx Substance Use: No Preferred Language: [place] Communication Ability: Effective Radio Dispatcher Required: No Beliefs That Will Affect Care: None marital status: Single Current Living Situation: Significant Other Current Living Situation Comment: Lives at home with Cody Feels Safe at Home: Yes Assistive Devices: Mechanical Lift Allergies Allergies Allergy/AdvReac Type Severity Reaction Status Date / Time ciprofloxacin [Cipro] Allergy Mild SHORTNESS Verified 07/31/24 20:15 OF BREATH miconazole Allergy Mild Rash Verified 07/31/24 20:15 empagliflozin Allergy Unknown Unknown Verified 07/31/24 20:15 [From Jardiance] metformin Allergy Unknown Unknown Verified 07/31/24 20:15 Home Meds Home Medications Medication Instructions Recorded Confirmed amiodarone 200 mg tablet 200 mg PO QAM 07/31/24 09/11/24 apixaban 5 mg tablet (Eliquis) 5 mg PO QAM 07/31/24 09/11/24 pantoprazole 40 mg tablet,delayed 40 mg PO QAM 07/31/24 09/11/24 release Boost Glucose Control 1 btl PO BID 09/11/24 09/11/24 acetaminophen 500 mg capsule 500 mg PO QID 09/11/24 09/11/24 ferrous sulfate 325 mg (65 mg 325 mg PO DAILY 09/11/24 09/11/24 iron) tablet folic acid 1 mg tablet 1 mg PO DAILY 09/11/24 09/11/24 gabapentin 100 mg capsule 100 mg PO BID 09/11/24 09/11/24 oxycodone 5 mg tablet 5 mg PO Q6 PRN Severe Pain (Scale 09/11/24 09/11/24 Score 7-10) polyethylene glycol 3350 17 gram 17 g PO BID 09/11/24 09/11/24 oral powder packet (Miralax) potassium chloride 10 mEq 10 meq PO DAILY 09/11/24 09/11/24 tablet,extended release povidone-iodine 10 % topical 1 ml topical DAILY heel pressure 09/11/24 09/11/24 solution (Betadine) ulcer protein supplement 1 ea PO TID 09/11/24 09/11/24 sennosides 8.6 mg-docusate sodium 2 tab PO HS 09/11/24 09/11/24 50 mg tablet (Senna Plus) Previous Rx's Medication Instructions Recorded atorvastatin 40 mg tablet 80 mg (2 x 40 mg) PO QAM #30 tabs 08/25/24 furosemide 40 mg tablet 40 mg PO DAILY #0 tabs 08/25/24 sertraline 50 mg tablet (Zoloft) 50 mg PO DAILY USES FOR ANXIETY #0 08/25/24 tabs spironolactone 100 mg tablet 100 mg PO QAM #30 tabs 08/25/24 Results & Data (ED) Vital Signs Vital Signs - 24 hr 09/11/24 00:36 09/11/24 00:36 09/11/24 00:36 Temperature Temperature Source Pulse Rate 132 H Pulse Rate [Apical] Pulse Rate from SpO2 Sensor Pulse Rhythm [Apical] Respiratory Rate Respiratory Effort / Characteristics Respiratory Depth Respiratory Pattern Blood Pressure 92/73 L 92/73 L Blood Pressure [Left Arm] Blood Pressure Mean 85 85 Blood Pressure Mean [Left Arm] Pulse Oximetry Oxygen Delivery Method Oxygen Flow Rate Sepsis Recent Fever Within 48 Hours Sepsis New/Unexplained Change in Mental Status Sepsis Action Taken by Nursing 09/11/24 00:48 09/11/24 00:50 09/11/24 00:50 Temperature Temperature Source Pulse Rate 131 H Pulse Rate [Apical] 131 H Pulse Rate from SpO2 Sensor Pulse Rhythm [Apical] Irregular Respiratory Rate 18 20 Respiratory Effort / Characteristics Respiratory Depth Respiratory Pattern Blood Pressure 93/69 L Blood Pressure [Left Arm] 96/67 L Blood Pressure Mean 75 Blood Pressure Mean [Left Arm] 76 Pulse Oximetry 96 93 Oxygen Delivery Method Nasal Cannula Nasal Cannula Oxygen Flow Rate 2 2 Sepsis Recent Fever Within 48 Hours Sepsis New/Unexplained Change in Mental Status Sepsis Action Taken by Nursing 09/11/24 01:00 09/11/24 01:03 09/11/24 01:06 Temperature Temperature Source Pulse Rate 120 H Pulse Rate [Apical] Pulse Rate from SpO2 Sensor 123 H Pulse Rhythm [Apical] Respiratory Rate 18 Respiratory Effort / Characteristics Respiratory Depth Respiratory Pattern Blood Pressure 96/67 L 80/60 L Blood Pressure [Left Arm] Blood Pressure Mean 88 64 Blood Pressure Mean [Left Arm] Pulse Oximetry 93 Oxygen Delivery Method Oxygen Flow Rate Sepsis Recent Fever Within 48 Hours Sepsis New/Unexplained Change in Mental Status Sepsis Action Taken by Nursing 09/11/24 01:06 09/11/24 01:11 09/11/24 01:12 Temperature Temperature Source Pulse Rate 120 H 121 H Pulse Rate [Apical] Pulse Rate from SpO2 Sensor 132 H Pulse Rhythm [Apical] Respiratory Rate 17 17 Respiratory Effort / Characteristics Respiratory Depth Respiratory Pattern Blood Pressure 81/69 L Blood Pressure [Left Arm] Blood Pressure Mean 75 Blood Pressure Mean [Left Arm] Pulse Oximetry 91 99 Oxygen Delivery Method Oxygen Flow Rate Sepsis Recent Fever Within 48 Hours Sepsis New/Unexplained Change in Mental Status Sepsis Action Taken by Nursing 09/11/24 01:16 09/11/24 01:16 09/11/24 01:18 Temperature Temperature Source Pulse Rate 114 H Pulse Rate [Apical] Pulse Rate from SpO2 Sensor 125 H Pulse Rhythm [Apical] Respiratory Rate 14 Respiratory Effort / Characteristics Respiratory Depth Respiratory Pattern Blood Pressure 86/62 L 86/62 L Blood Pressure [Left Arm] Blood Pressure Mean 70 70 Blood Pressure Mean [Left Arm] Pulse Oximetry 100 Oxygen Delivery Method Oxygen Flow Rate Sepsis Recent Fever Within 48 Hours Sepsis New/Unexplained Change in Mental Status Sepsis Action Taken by Nursing 09/11/24 01:20 09/11/24 01:21 09/11/24 01:21 Temperature 36.7 C Temperature Source Rectal Pulse Rate 137 H Pulse Rate [Apical] Pulse Rate from SpO2 Sensor Pulse Rhythm [Apical] Respiratory Rate 21 Respiratory Effort / Characteristics Non-Labored Respiratory Depth Shallow Respiratory Pattern Regular Blood Pressure 84/59 L 92/73 L Blood Pressure [Left Arm] Blood Pressure Mean 69 79 Blood Pressure Mean [Left Arm] Pulse Oximetry 99 93 Oxygen Delivery Method Nasal Cannula Nasal Cannula Oxygen Flow Rate 2 2 Sepsis Recent Fever Within 48 Hours Yes Sepsis New/Unexplained Change in Mental Status Yes Sepsis Action Taken by Nursing Physician Notified 09/11/24 01:21 09/11/24 01:21 09/11/24 01:24 Temperature Temperature Source Pulse Rate 118 H 107 H Pulse Rate [Apical] 110 H Pulse Rate from SpO2 Sensor 113 H 116 H Pulse Rhythm [Apical] Respiratory Rate 21 17 18 Respiratory Effort / Characteristics Respiratory Depth Respiratory Pattern Blood Pressure Blood Pressure [Left Arm] Blood Pressure Mean Blood Pressure Mean [Left Arm] Pulse Oximetry 100 100 Oxygen Delivery Method Oxygen Flow Rate Sepsis Recent Fever Within 48 Hours Sepsis New/Unexplained Change in Mental Status Sepsis Action Taken by Nursing 09/11/24 01:25 09/11/24 01:30 09/11/24 01:30 Temperature Temperature Source Pulse Rate Pulse Rate [Apical] 117 H Pulse Rate from SpO2 Sensor Pulse Rhythm [Apical] Respiratory Rate 20 Respiratory Effort / Characteristics Respiratory Depth Respiratory Pattern Blood Pressure 81/57 L 85/59 L Blood Pressure [Left Arm] 85/59 L Blood Pressure Mean 60 71 Blood Pressure Mean [Left Arm] 67 Pulse Oximetry 99 Oxygen Delivery Method Oxygen Flow Rate Sepsis Recent Fever Within 48 Hours Sepsis New/Unexplained Change in Mental Status Sepsis Action Taken by Nursing 09/11/24 01:40 09/11/24 01:50 09/11/24 01:54 Temperature Temperature Source Pulse Rate 117 H 115 H Pulse Rate [Apical] Pulse Rate from SpO2 Sensor 108 H Pulse Rhythm [Apical] Respiratory Rate 20 18 Respiratory Effort / Characteristics Respiratory Depth Respiratory Pattern Blood Pressure 88/58 L 87/64 L Blood Pressure [Left Arm] Blood Pressure Mean 68 74 Blood Pressure Mean [Left Arm] Pulse Oximetry 99 96 Oxygen Delivery Method Oxygen Flow Rate Sepsis Recent Fever Within 48 Hours Sepsis New/Unexplained Change in Mental Status Sepsis Action Taken by Nursing 09/11/24 01:55 09/11/24 02:00 09/11/24 02:03 Temperature Temperature Source Pulse Rate 120 H Pulse Rate [Apical] Pulse Rate from SpO2 Sensor 114 H Pulse Rhythm [Apical] Respiratory Rate 15 Respiratory Effort / Characteristics Respiratory Depth Respiratory Pattern Blood Pressure 88/62 L 84/52 L Blood Pressure [Left Arm] Blood Pressure Mean 73 63 Blood Pressure Mean [Left Arm] Pulse Oximetry 100 Oxygen Delivery Method Oxygen Flow Rate Sepsis Recent Fever Within 48 Hours Sepsis New/Unexplained Change in Mental Status Sepsis Action Taken by Nursing 09/11/24 02:05 09/11/24 02:06 09/11/24 02:15 Temperature Temperature Source Pulse Rate 114 H Pulse Rate [Apical] Pulse Rate from SpO2 Sensor 115 H Pulse Rhythm [Apical] Respiratory Rate 18 Respiratory Effort / Characteristics Respiratory Depth Respiratory Pattern Blood Pressure 87/63 L 89/58 L Blood Pressure [Left Arm] Blood Pressure Mean 77 73 Blood Pressure Mean [Left Arm] Pulse Oximetry 98 Oxygen Delivery Method Oxygen Flow Rate Sepsis Recent Fever Within 48 Hours Sepsis New/Unexplained Change in Mental Status Sepsis Action Taken by Nursing 09/11/24 02:15 09/11/24 02:20 09/11/24 02:25 Temperature Temperature Source Pulse Rate 115 H Pulse Rate [Apical] Pulse Rate from SpO2 Sensor 116 H Pulse Rhythm [Apical] Respiratory Rate 16 Respiratory Effort / Characteristics Respiratory Depth Respiratory Pattern Blood Pressure 83/62 L 106/65 Blood Pressure [Left Arm] Blood Pressure Mean 67 83 Blood Pressure Mean [Left Arm] Pulse Oximetry 92 Oxygen Delivery Method Oxygen Flow Rate Sepsis Recent Fever Within 48 Hours Sepsis New/Unexplained Change in Mental Status Sepsis Action Taken by Nursing 09/11/24 02:25 09/11/24 02:27 09/11/24 02:30 Temperature Temperature Source Pulse Rate 103 H Pulse Rate [Apical] Pulse Rate from SpO2 Sensor Pulse Rhythm [Apical] Respiratory Rate 17 Respiratory Effort / Characteristics Respiratory Depth Respiratory Pattern Blood Pressure 106/65 91/69 L Blood Pressure [Left Arm] Blood Pressure Mean 83 82 Blood Pressure Mean [Left Arm] Pulse Oximetry 68 L Oxygen Delivery Method Oxygen Flow Rate Sepsis Recent Fever Within 48 Hours Sepsis New/Unexplained Change in Mental Status Sepsis Action Taken by Nursing 09/11/24 02:35 09/11/24 02:40 09/11/24 02:45 Temperature Temperature Source Pulse Rate Pulse Rate [Apical] Pulse Rate from SpO2 Sensor Pulse Rhythm [Apical] Respiratory Rate Respiratory Effort / Characteristics Respiratory Depth Respiratory Pattern Blood Pressure 99/63 L 105/64 108/70 Blood Pressure [Left Arm] Blood Pressure Mean 71 87 79 Blood Pressure Mean [Left Arm] Pulse Oximetry Oxygen Delivery Method Oxygen Flow Rate Sepsis Recent Fever Within 48 Hours Sepsis New/Unexplained Change in Mental Status Sepsis Action Taken by Nursing 09/11/24 02:45 09/11/24 02:45 09/11/24 02:48 Temperature Temperature Source Pulse Rate 105 H 108 H Pulse Rate [Apical] Pulse Rate from SpO2 Sensor 105 H 107 H Pulse Rhythm [Apical] Respiratory Rate 15 15 Respiratory Effort / Characteristics Respiratory Depth Respiratory Pattern Blood Pressure 108/70 Blood Pressure [Left Arm] Blood Pressure Mean 79 Blood Pressure Mean [Left Arm] Pulse Oximetry 100 100 Oxygen Delivery Method Oxygen Flow Rate Sepsis Recent Fever Within 48 Hours Sepsis New/Unexplained Change in Mental Status Sepsis Action Taken by Nursing 09/11/24 02:50 09/11/24 02:54 09/11/24 03:09 Temperature Temperature Source Pulse Rate 109 H 100 H Pulse Rate [Apical] Pulse Rate from SpO2 Sensor 103 H 103 H Pulse Rhythm [Apical] Respiratory Rate 17 16 Respiratory Effort / Characteristics Respiratory Depth Respiratory Pattern Blood Pressure 104/71 94/71 L Blood Pressure [Left Arm] Blood Pressure Mean 75 78 Blood Pressure Mean [Left Arm] Pulse Oximetry 100 95 Oxygen Delivery Method Nasal Cannula Oxygen Flow Rate 2 Sepsis Recent Fever Within 48 Hours Sepsis New/Unexplained Change in Mental Status Sepsis Action Taken by Nursing 09/11/24 03:24 Temperature Temperature Source Pulse Rate 101 H Pulse Rate [Apical] Pulse Rate from SpO2 Sensor 109 H Pulse Rhythm [Apical] Respiratory Rate 17 Respiratory Effort / Characteristics Respiratory Depth Respiratory Pattern Blood Pressure 92/66 L Blood Pressure [Left Arm] Blood Pressure Mean 74 Blood Pressure Mean [Left Arm] Pulse Oximetry 97 Oxygen Delivery Method Nasal Cannula Oxygen Flow Rate 2 Sepsis Recent Fever Within 48 Hours Sepsis New/Unexplained Change in Mental Status Sepsis Action Taken by Nursing Laboratory Data 09/11/24 00:40 09/11/24 00:40 Lab Results 09/11/24 09/11/24 09/11/24 Range/Units 00:40 00:50 02:16 WBC 14.37 H (4.8-10.8) K/ul RBC 3.45 L (4.20-5.40) M/uL Hgb 9.5 L (12.0-16.0) g/dl Hct 32.1 L (37.0-47.0) % MCV 93.0 (80.0-100.0) fL MCH 27.5 (25.0-34.0) pg MCHC 29.6 L (32.0-36.0) g/dL RDW Std Deviation 76.0 H (36.4-46.3) fL RDW Coeff of Rasheed 22.5 H (11.5-14.5) % Plt Count 312 (130-400) K/uL MPV 10.9 (9.4-12.4) fL Immature Gran % (Auto) 1.3 % Neut % (Auto) 90.3 % Lymph % (Auto) 3.9 % [place] % (Auto) 4.4 % Eos % (Auto) 0.0 % Baso % (Auto) 0.1 % Neut # (Auto) 12.97 H (1.40-6.50) K/uL Lymph # (Auto) 0.56 L (1.20-3.40) K/uL [place] # (Auto) 0.63 H (0.11-0.59) K/uL Eos # (Auto) 0.00 (0.00-0.50) K/uL Baso # (Auto) 0.02 (0.00-0.20) K/uL Immature Gran # (Auto) 0.19 (0.01-0.20) K/uL Polychromasia 1+ Anisocytosis Present Sodium 143 (136-145) mmol/L Potassium 4.4 (3.5-5.1) mmol/L Chloride 108 H (98-107) mmol/L Carbon Dioxide 28 (21-32) mmol/L Anion Gap 7 (3-11) BUN 27 H (6-23) mg/dl Creatinine 0.67 (0.6-1.2) mg/dl Est Cr Clr Drug Dosing 70.4 ml/min eGFR 95.74 BUN/Creatinine Ratio 40.3 H (10-20) Glucose 94 (70-99(Fasting)) mg/dl POC Glucose 90 (70-99) mg/dl Lactate 1.2 (0.4-2.0) mmol/L Calcium 7.7 L (8.6-10.3) mg/dl Magnesium 1.8 (1.7-2.4) mg/dl Total Bilirubin 0.6 (0.2-1.0) mg/dl Direct Bilirubin 0.1 (0-0.2) mg/dl AST 95 H (13-39) U/L ALT 36 (7-52) U/L Alkaline Phosphatase 139 H (34-104) U/L Troponin I High Sens 25.3 H 17.9 H D (0-14) pg/ml Total Protein 5.7 L (6.0-8.3) gm/dl Albumin 2.3 L (3.4-5.0) gm/dl Procalcitonin 4.85 H (0-0.5) ng/ml Urine Color Yellow Urine Appearance Cloudy A (Clear) Urine pH 5.0 (4.5-7.5) Ur Specific [place] 1.021 (1.000-1.030) Urine Protein 1+ H (Negative) Urine Glucose (UA) Negative (Negative) Urine Ketones Trace H (Negative) Urine Blood Negative (Negative) Urine Nitrite Positive A (Negative) Urine Bilirubin Negative (Negative) Urine Urobilinogen Negative (Negative) Ur Leukocyte Esterase 2+ H (Negative) Urine WBC (Auto) >50 H (0-5) /hpf Urine RBC (Auto) 0-2 (0-2) /hpf U Hyaline Cast (Auto) 3-5 H (0-2) /lpf U Epithel Cells (Auto) 0-2 (0-2) /hpf Urine Bacteria (Auto) 4+ H (None Seen) Adenovirus (PCR) Not Detected (NotDetected) B. pertussis DNA (PCR) Not Detected (NotDetected) B.parapertussis DNA PCR Not Detected (NotDetected) C. pneumoniae DNA (PCR) Not Detected (NotDetected) Coronavirus OC43 (PCR) Not Detected (NotDetected) Coronavirus HKU1 (PCR) Not Detected (NotDetected) Coronavirus 229E (PCR) Not Detected (NotDetected) SARS-CoV-2 (PCR) Not Detected (NotDetected) Coronavirus NL63 (PCR) Not Detected (NotDetected) Human Metapneumovir PCR Not Detected (NotDetected) Influenza Type A (PCR) Not Detected (NotDetected) Influenza Type B (PCR) Not Detected (NotDetected) M. pneumoniae (PCR) Not Detected (NotDetected) Parainfluenza 1 (PCR) Not Detected (NotDetected) Parainfluenza 2 (PCR) Not Detected (NotDetected) Parainfluenza 3 (PCR) Not Detected (NotDetected) Parainfluenza 4 (PCR) Not Detected (NotDetected) RSV (PCR) Not Detected (NotDetected) Entero/Rhino (PCR) Not Detected (NotDetected) Administered Medications Norepinephrine Bitartrate (Levophed/D5w) 4 mg in 250 mls @ 7.346 mls/hr IV .Q24H ELIAN; Protocol Stop: 10/11/24 01:59 Last Titration: 09/11/24 03:15 Dose: 0.03 mcg/kg/min, 7.3 mls/hr Documented By: Admin: 09/11/24 02:15 Dose: 0.05 mcg/kg/min, 12.2 mls/hr Documented By: SIDNEY Co-signed By: TO Discontinued Medications Sodium Chloride (Nss) 1,000 mls @ 999 mls/hr IV .Q1H1M ELIAN Stop: 09/11/24 02:45 Last Infusion: 09/11/24 01:52 Dose: Infused Documented By: Admin: 09/11/24 01:08 Dose: 999 mls/hr Documented By: Infusion: 09/11/24 01:08 Dose: Infused Documented By: Admin: 09/11/24 00:47 Dose: 999 mls/hr Documented By: SIDNEY Piperacillin Sod/Tazobactam Sod (Zosyn) 4.5 gm in 100 mls @ 200 mls/hr IV NOW ONE; Protocol Stop: 09/11/24 01:31 Last Infusion: 09/11/24 01:52 Dose: Infused Documented By: Admin: 09/11/24 01:09 Dose: 200 mls/hr Documented By: SIDNEY Daptomycin 325 mg/ Syringe 6.5 mls @ 3.25 mls/min IV Q24H STA; Protocol Stop: 09/11/24 01:31 Last Admin: 09/11/24 02:05 Dose: 3.25 mls/min Documented By: SIDNEY Miscellaneous (Stat Iv Infusion Titration Per Protocol) 1 each N/A NOW STA Stop: 09/11/24 01:51 Last Admin: 09/11/24 02:18 Dose: Not Given Documented By: SIDNEY Norepinephrine Bitartrate (Norepinephrine/D5w 4 Mg/250 Ml) Confirm Administered Dose 4 mg IV .STK-MED ONE Stop: 09/11/24 01:53 Last Admin: 09/11/24 02:04 Dose: Not Given Documented By: SIDNEY Imaging Data Radiologist's Impression: Chest X-Ray 09/11/24 00:39 EXAM: XR chest 1V portable CLINICAL HISTORY: SEPSIS, FEVER KFK TECHNIQUE: An X-ray image of the chest is obtained in AP projection. COMPARISON: None. FINDINGS: Pulmonary Parenchyma: Inhomogeneous shadowing/prominent bronchovascular markings at both mid-lower zones are more marked on the left side. Prominent leonard. Blunting of left costophrenic angle. Heart and Mediastinum: Heart size and shape are normal. No mediastinal widening or masses. No hilar or mediastinal lymphadenopathy. Bony Thorax: The bony thorax appears intact without fractures or deformities. Soft Tissues: Soft tissues overlying the chest wall are unremarkable. IMPRESSION: 1. Bilateral infiltration/congestion is more on the left side. Clinical correlation and follow-up are advised. 2. Prominent bilateral leonard. 3. Mild left pleural effusion. Electronically signed by Lupillo Child 09-11-2024 02:41 AM Discharge Plan Visit Data Chief Complaint: Altered Mental Status Stated Complaint: AMS, Tachycardia, Hypotension, Fever ED Provider: Asia Acevedo Discharge Problem: Septic shock, Acute UTI, Bilateral pneumonia Forms Stand Alone Forms: [facility] Prescriptions Prescriptions: No Action amiodarone 200 mg tablet 200 mg PO QAM pantoprazole 40 mg tablet,delayed release (DR/EC) 40 mg PO QAM Eliquis 5 mg tablet 5 mg PO QAM Rx Instructions: ORDERED BID BUT PT ONLY TAKES IN THE MORNING..STATES 2ND PILL OF THE DAY MAKES HER WAY TOO COLD atorvastatin 40 mg Tablet 80 mg PO QAM Qty: 30 0RF spironolactone 100 mg Tablet 100 mg PO QAM Qty: 30 4RF furosemide 40 mg tablet 40 mg PO DAILY Qty: 0 0RF sertraline [Zoloft] 50 mg tablet 50 mg PO DAILY Qty: 0 0RF Rx Instructions: ORDERED ROUTINE BUT PT ONLY USES FOR ANXIETY sennosides-docusate sodium [Senna Plus] 8.6-50 mg Tablet 2 tab PO HS potassium chloride 10 mEq Tablet Extended Release 10 meq PO DAILY ferrous sulfate 325 mg (65 mg iron) Tablet 325 mg PO DAILY folic acid 1 mg Tablet 1 mg PO DAILY gabapentin 100 mg Capsule 100 mg PO BID acetaminophen 500 mg Capsule 500 mg PO QID Rx Instructions: PO morning, afternoon, evening and bedtime 0900, 1300, 1700, 2100 oxycodone 5 mg Tablet 5 mg PO Q6 PRN (Reason: Severe Pain (Scale Score 7-10)) povidone-iodine [Betadine] 10 % Solution 1 ml TOPICAL DAILY Rx Instructions: cleanse left heel pressure ulcer with NSS apply betadine soak for 5 minutes to wound base leave open to air preform daily Liquacel Liquid 1 ea PO TID Boost Glucose Control 1 btl PO BID polyethylene glycol 3350 [Miralax] 17 gram powder in packet 17 g PO BID Referrals Referrals: Zach Castelan MD [Outside Practitioners] -
[2024-09-11 01:00] LABS: Hematocrit (blood only) 32.1 % (37.0-47.0); Hemoglobin 9.5 g/dl (12.0-16.0); Mean Corpuscular Hemoglobin 27.5 pg (25.0-34.0); Mean Corpuscular Hgb Conc 29.6 g/dL (32.0-36.0); Mean Platelet Volume 10.9 fL (9.4-12.4); Platelet Count 312 K/uL (130-400); RDW Coefficient of Variation 22.5 % (11.5-14.5); Red Blood Count 3.45 M/uL (4.20-5.40); White Blood Count 14.37 K/ul (4.8-10.8)
[2024-09-11] MEDS: PIPERACILLIN/TAZOBACTAM 4.5 GM/100 ML BAG IV ONE (01:09)
[2024-09-11 01:32] LABS: Albumin Level 2.3 gm/dl (3.4-5.0); BUN Creatinine Ratio 40.3 (10-20); Bilirubin Direct 0.1 mg/dl (0-0.2); Bilirubin,Total 0.6 mg/dl (0.2-1.0); Calcium 7.7 mg/dl (8.6-10.3); Creatinine Clr Calc Pharmacy 70.4 ml/min; Magnesium 1.8 mg/dl (1.7-2.4); Potassium 4.4 mmol/L (3.5-5.1); Total Protein 5.7 gm/dl (6.0-8.3); Troponin I High Sensitivity 25.3 pg/ml (0-14)
[2024-09-11 01:40] LABS: Anisocytosis Present; Basophils # (auto) 0.02 K/uL (0.00-0.20); Basophils % (auto) 0.1 %; Immature Granulocytes # (auto) 0.19 K/uL (0.01-0.20); Immature Granulocytes % (auto) 1.3 %; Lymphocytes # (auto) 0.56 K/uL (1.20-3.40); Lymphocytes % (auto) 3.9 %; Monocytes # (auto) 0.63 K/uL (0.11-0.59); Monocytes % (auto) 4.4 %; Neutrophils # (auto) 12.97 K/uL (1.40-6.50); Neutrophils % (auto) 90.3 %; Polychromasia 1+
[2024-09-11 01:42] LABS: Appearance Urine Cloudy (Clear); Bacteria Urine Automated 4+ (None Seen); Bilirubin Urine Negative (Negative); Blood Urine Negative (Negative); Color Urine Yellow; Epithelial Cell Urine Auto 0-2 /hpf (0-2); Glucose Urine UA Negative (Negative); Ketones Urine Trace (Negative); Leukocyte Esterase Urine 2+ (Negative); Nitrite Urine Positive (Negative); Protein Urine 1+ (Negative); Specific Gravity Urine 1.021 (1.000-1.030); Urobilinogen Urine Negative (Negative); WBC Urine Automated >50 /hpf (0-5)
[2024-09-11 01:43] LABS: RBC Urine Automated 0-2 /hpf (0-2)
[2024-09-11] MEDS: NOREPINEPHRINE/D5W 4 MG/250 ML IV ONE (02:04)
[2024-09-11] MEDS: DAPTOmycin 325 MG in SYRINGE 0 ML IV STA (02:05)
[2024-09-11 02:06] LABS: Adenovirus PCR Not Detected (NotDetected); Bordetella parapertussis PCR Not Detected (NotDetected); Bordetella pertussis PCR Not Detected (NotDetected); Chlamydia pneumoniae PCR Not Detected (NotDetected); Coronavirus 229E PCR Not Detected (NotDetected); Coronavirus CoV-2 (COVID19)PCR Not Detected (NotDetected); Coronavirus HKU1 PCR Not Detected (NotDetected); Coronavirus NL63 PCR Not Detected (NotDetected); Coronavirus OC43PCR Not Detected (NotDetected); Human Metapneumovirus PCR Not Detected (NotDetected); Influenza A PCR Not Detected (NotDetected); Influenza B PCR Not Detected (NotDetected); Mycoplasma pneumoniae PCR Not Detected (NotDetected); Parainfluenza Virus 1 PCR Not Detected (NotDetected); Parainfluenza Virus 2 PCR Not Detected (NotDetected); Parainfluenza Virus 3 PCR Not Detected (NotDetected); Parainfluenza Virus 4 PCR Not Detected (NotDetected); Respiratory Syncytial VirusPCR Not Detected (NotDetected); Rhinovirus/Enterovirus PCR Not Detected (NotDetected)
[2024-09-11] MEDS: NOREPINEPHRINE/D5W 4 MG/250 ML PLCT IV SCH (02:15)
[2024-09-11] MEDS: STAT IV Infusion **Titration per Protocol STA (02:18)
--- NOTE | 2024-09-11 02:42 | XRay Report ---
EXAM: XR chest 1V portable CLINICAL HISTORY: SEPSIS, FEVER KFK TECHNIQUE: An X-ray image of the chest is obtained in AP projection. COMPARISON: None. FINDINGS: Pulmonary Parenchyma: Inhomogeneous shadowing/prominent bronchovascular markings at both mid-lower zones are more marked on the left side. Prominent leonard. Blunting of left costophrenic angle. Heart and Mediastinum: Heart size and shape are normal. No mediastinal widening or masses. No hilar or mediastinal lymphadenopathy. Bony Thorax: The bony thorax appears intact without fractures or deformities. Soft Tissues: Soft tissues overlying the chest wall are unremarkable. IMPRESSION: 1. Bilateral infiltration/congestion is more on the left side. Clinical correlation and follow-up are advised. 2. Prominent bilateral leonard. 3. Mild left pleural effusion. Electronically signed by Lupillo Child 09-11-2024 02:41 AM
--- NOTE | 2024-09-11 03:51 | History & Physical Report ---
Date of Service September 11, 2024 Assessment & Plan (1) Septic shock: Plan: 69yo female with history of PVD, PAF on Eliquis, COPD on 2L O2 at baseline and HFpEF presenting with one week of progressive illness. Patient with septic shock present on arrival. Hypotensive, tachycardic with neutrophil predominant leukocytosis, elevated procalcitonin. She received 30mL/kg of crystalloid infusion with no improvement in blood pressure. Presently on levophed 0.03mcg/kg/min with improved BP now 92/66. Source unclear at this time- UA does suggest infection. CXR with bilateral infiltration L>R, consider skin/soft tissue or osteomyelitis as possible source as well. Suspect patient is still volume depleted as well likely contributing to her hypotension. -Admit to MICU -Check ESR and CRP -Check random Cortisol -Check MRSA nares -Check X-ray of RLE and LLE to assess for possible osteomyelitis -Check CT abdomen given distention and tenderness noted on exam -Follow cultures sent from the ER - urine, blood and wound -Continue IVF - LR at 100mL/hr x 2L ordered. Monitor fluid status - patient last presented with significant volume overload secondary to acute on chronic HFpEF requiring aggressive diuresis. -Continue Levophed goal MAP =65 -Continue broad spectrum antibiotics - Zosyn and Daptomycin. Patient did have Pseudomonas present in right ankle wound -Tylenol PRN -Zofran PRN (2) Sacral wound: Plan: Patient with Stage II sacral and thigh wounds, ulcerations present on LLE as well. -Turn and position q 2 hours -Heel precautions -Wound care -Nutrition consultation (3) Persistent atrial fibrillation: Plan: Atrial fibrillation. Patient on Eliquis anticoagulation and Amiodarone. Was previously on Metoprolol which has been discontinued -Continue Amiodarone -Continue Eliquis - per chart review, takes this daily rather than BID -TSH as below (4) Hyperthyroidism: Plan: Patient previously on Methimazole which was held during last admission due to elevated TSH. -Repeat TSH (5) Diabetes mellitus type 2 in obese: Plan: Blood sugar presently 94. Overall very well controlled - last HgbA1C on 08/01/24 = 5.7. Was previously on Januvia which was discontinued on last discharge. -Diet controlled -Daily chemistry Plan PAD -Patient was on Plavix until 09/07 -Resume ASA 81mg po daily -Holding Atorvastatin for now while on Daptomycin F/E/N - LR at 100mL/hr x 2L, monitor electrolytes - check PO4 given poor oral intake, minced/moist diet as tolerated with aspiration precautions, oral hygiene q shift Ppx - Continue daily Eliquis Code - Full per discussion with patient and daughter at bedside Dispo - Admit to MICU for continued Levophed History of Present Illness Chief Complaint: septic shock Primary Care Provider: Paul Andersen MD Natividad Henning is a 69yo female with history of PAD, PAF on Eliquis anticoagulation, CAD, COPD, HTN and HFpEF. Patient was recently hospitalized at [facility] from 07/31/24 - 08/25/24 after presenting with cellulitis, diabetic foot infection and acute on chronic HFpEF. Patient was diuresed with IV Lasix. She was evaluated by Vascular Medicine and found to have severe arterial insufficiency. She had excisional debridement performed of bilateral LE ulcers performed by Dr. Melendrez of Podiatry on 08/05/24 with collection of a right foot bone biopsy which showed osteomyelitis. She had a bilateral LE angiogram performed on 08/06/[address] Tolbert with angioplasty, intravascular lithotripsy and stenting of the right external iliac artery and angioplasty of the right mid SFA with drug-eluting balloon. Patient had a right BKA performed on 08/20/[address] Ahsan Farr. She had post-operative anemia and received 1u PRBCs on 08/21/24. Patient was ultimately discharged to [facility] no 08/25/24. Plavix to continue until 09/07/24. Her Methimazole was held with plans to repeat TSH in 2 weeks. Patient returns tonight with her daughter, Jennifer, who provides the history. Jennifer has not seen her mother for several weeks. When she visited her today at [facility] patient was minimally responsive. Reportedly has had one week of progressive confusion, decreased oral intake and had a fever this AM, W==047.3 by EMS. Daughter states that patient has not eaten or taken her medications for several days. She has been taking very infrequent sips of water. Staff checked her vital signs this evening and patient was hypotensive and tachycardic. No report of nausea, vomiting, diarrhea, chest pain or shortness of breath. Patient is unable to provide details of events prior to arrival due to her state of illness and metabolic encephalopathy. She does state "my leg hurts" when asked questions. No additional complaints. Upon arrival to the ER patient found to be in atrial fibrillation with RVR, rate of 126bpm. Blood pressure low at 92/73. She was given 2L NSS with no improvement in blood pressure (remained 80's/50's) therefore she was started on Levophed. Daughter reports that patient is more alert and responsive after receiving some IVF. ER Course: NSS x 2L Zosyn 4.5gm Daptomycin 325mg Levophed gtt Allergies Allergy/AdvReac Type Severity Reaction Status Date / Time ciprofloxacin [Cipro] Allergy Mild SHORTNESS Verified 07/31/24 20:15 OF BREATH miconazole Allergy Mild Rash Verified 07/31/24 20:15 empagliflozin Allergy Unknown Unknown Verified 07/31/24 20:15 [From Jardiance] metformin Allergy Unknown Unknown Verified 07/31/24 20:15 Home Medications Medication Instructions Recorded Confirmed Type amiodarone 200 mg tablet 200 mg PO QAM 07/31/24 09/11/24 History apixaban 5 mg tablet (Eliquis) 5 mg PO QAM 07/31/24 09/11/24 History pantoprazole 40 mg tablet,delayed 40 mg PO QAM 07/31/24 09/11/24 History release atorvastatin 40 mg tablet 80 mg (2 x 40 mg) PO QAM #30 tabs 08/25/24 09/11/24 Rx furosemide 40 mg tablet 40 mg PO DAILY #0 tabs 08/25/24 09/11/24 Rx sertraline 50 mg tablet (Zoloft) 50 mg PO DAILY USES FOR ANXIETY #0 08/25/24 09/11/24 Rx tabs spironolactone 100 mg tablet 100 mg PO QAM #30 tabs 08/25/24 09/11/24 Rx Boost Glucose Control 1 btl PO BID 09/11/24 09/11/24 History acetaminophen 500 mg capsule 500 mg PO QID 09/11/24 09/11/24 History ferrous sulfate 325 mg (65 mg 325 mg PO DAILY 09/11/24 09/11/24 History iron) tablet folic acid 1 mg tablet 1 mg PO DAILY 09/11/24 09/11/24 History gabapentin 100 mg capsule 100 mg PO BID 09/11/24 09/11/24 History oxycodone 5 mg tablet 5 mg PO Q6 PRN Severe Pain (Scale 09/11/24 09/11/24 History Score 7-10) polyethylene glycol 3350 17 gram 17 g PO BID 09/11/24 09/11/24 History oral powder packet (Miralax) potassium chloride 10 mEq 10 meq PO DAILY 09/11/24 09/11/24 History tablet,extended release povidone-iodine 10 % topical 1 ml topical DAILY heel pressure 09/11/24 09/11/24 History solution (Betadine) ulcer protein supplement 1 ea PO TID 09/11/24 09/11/24 History sennosides 8.6 mg-docusate sodium 2 tab PO HS 09/11/24 09/11/24 History 50 mg tablet (Senna Plus) Past Med/Surg History Problem List (Updated 09/11/24 @ 04:06 by Fatou Chilel DO) Septic shock Chronic pain Sacral wound Cellulitis of right lower limb Cellulitis of left lower leg Other specified peripheral vascular diseases 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 Hypocalcemia Anemia Tricuspid regurgitation Sacral decubitus ulcer, stage II Bradycardia with 31-40 beats per minute Anasarca Pneumonia (Acute) Pulmonary edema (Acute) Nausea & vomiting (Acute) Acute hypoxemic respiratory failure (Acute) Diabetic foot infection (Acute) Dyslipidemia Persistent atrial fibrillation Neuroenteric cyst Depression with anxiety Acute respiratory failure with hypoxia Chronic lower back pain Diabetes mellitus type 2 in obese Dermatitis Mediastinal lymphadenopathy Hypomagnesemia Hyperthyroidism Abnormal chest CT Neck pain Rapid atrial fibrillation Elevated troponin (Acute) Degenerative arthritis of cervical spine Atrial fibrillation Chest pain Rapid atrial fibrillation (Acute) Medical History Tachy-reema syndrome Encounter for pre-operative examination Peripheral arterial disease Osteomyelitis of foot, right, acute 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 Pulmonary hypertension Paroxysmal atrial fibrillation Bradycardia Acute on chronic heart failure with preserved ejection fraction (HFpEF) CAD (coronary artery disease) Ex-smoker COPD with emphysema NSTEMI (non-ST elevated myocardial infarction) Anticoagulant long-term use SOB (shortness of breath) Hypertension Social History Smoking Status: Unknown if ever smoked Tobacco Type: Cigarettes Second Hand Exposure: No; Hx Alcohol Use: No Hx Substance Use: No Preferred Language: [place] Islander Communication Ability: Effective Cattle Feeder Required: No Beliefs That Will Affect Care: None marital status: Single Current Living Situation: Significant Other Current Living Situation Comment: Lives at home with Cody Feelapril Safe at Home: Yes Assistive Devices: Mechanical Lift Review of Systems Review of Systems: All systems reviewed & are unremarkable except as noted in HPI & below Physical Exam Physical Exam: General: patient ill in appearance, encephalopathic, does not answer orientation questions but does respond "my leg hurts" and asking for a drink of water Skin: Stage II sacral decubiti and ulceration of thighs cleaned and dressed in the ER, shallow ulceration of dorsal surface of left foot with granulation tissue present, ulceration of left heel, poor skin turgor HEENT: NC/AT, PERRL, EOMI, anicteric sclera, conjunctiva without injection, external ear normal to inspection and nontender, nares patent, dry lips and dry mucus membranes, dentures in place - ill fitting at present, no oropharyngeal lesions, neck supple, trachea midline, no LAD, no thyromegaly, no JVD Heart: +S1/S2, irregularly irregular, tachycardic, no m/r/g Lungs: equal air entry bilaterally, no rales/rhonchi/wheezes Abd: diminished bowel sounds, abdomen mildly distended and tympanic to percussion, mild tenderness with deep palpation, no rebound/guarding/peritonitis Ext: s/p right BKA with dressing in place, left foot ulcerations as above Neuro: awake, does not answer questions, follows commands Results & Data Results & Data Vital Signs (Past 12 Hours) Vital Signs Temp Pulse Pulse Resp BP BP Pulse Ox 09/11/24 03:24 101 H 17 92/66 L 97 09/11/24 03:09 100 H 16 94/71 L 95 09/11/24 02:54 109 H 17 100 09/11/24 02:50 104/71 09/11/24 02:48 108 H 15 100 09/11/24 02:45 105 H 15 100 09/11/24 02:45 108/70 09/11/24 02:45 108/70 09/11/24 02:40 105/64 09/11/24 02:35 99/63 L 09/11/24 02:30 91/69 L 09/11/24 02:27 103 H 17 68 L 09/11/24 02:25 106/65 09/11/24 02:25 106/65 09/11/24 02:20 83/62 L 09/11/24 02:15 115 H 16 92 09/11/24 02:15 89/58 L 09/11/24 02:06 114 H 18 98 09/11/24 02:05 87/63 L 09/11/24 02:03 120 H 15 100 09/11/24 02:00 84/52 L 09/11/24 01:55 88/62 L 09/11/24 01:54 115 H 18 96 09/11/24 01:50 87/64 L 09/11/24 01:40 117 H 20 88/58 L 99 09/11/24 01:30 85/59 L 09/11/24 01:30 117 H 20 85/59 L 99 09/11/24 01:25 81/57 L 09/11/24 01:24 107 H 18 100 09/11/24 01:21 118 H 17 100 09/11/24 01:21 110 H 21 09/11/24 01:21 93 09/11/24 01:21 36.7 C 137 H 21 92/73 L 99 09/11/24 01:20 84/59 L 09/11/24 01:18 114 H 14 100 09/11/24 01:16 86/62 L 09/11/24 01:16 86/62 L 09/11/24 01:12 121 H 17 99 09/11/24 01:11 81/69 L 09/11/24 01:06 120 H 17 91 09/11/24 01:06 80/60 L 09/11/24 01:03 120 H 18 93 09/11/24 01:00 96/67 L 09/11/24 00:50 131 H 20 96/67 L 93 09/11/24 00:50 131 H 18 96 09/11/24 00:48 93/69 L 09/11/24 00:36 92/73 L 09/11/24 00:36 92/73 L 09/11/24 00:36 132 H O2 Del Method O2 Flow Rate 09/11/24 03:24 Nasal Cannula 2 09/11/24 03:09 Nasal Cannula 2 09/11/24 02:54 09/11/24 02:50 09/11/24 02:48 09/11/24 02:45 09/11/24 02:45 09/11/24 02:45 09/11/24 02:40 09/11/24 02:35 09/11/24 02:30 09/11/24 02:27 09/11/24 02:25 09/11/24 02:25 09/11/24 02:20 09/11/24 02:15 09/11/24 02:15 09/11/24 02:06 09/11/24 02:05 09/11/24 02:03 09/11/24 02:00 09/11/24 01:55 09/11/24 01:54 09/11/24 01:50 09/11/24 01:40 09/11/24 01:30 09/11/24 01:30 09/11/24 01:25 09/11/24 01:24 09/11/24 01:21 09/11/24 01:21 09/11/24 01:21 Nasal Cannula 2 09/11/24 01:21 Nasal Cannula 2 09/11/24 01:20 09/11/24 01:18 09/11/24 01:16 09/11/24 01:16 09/11/24 01:12 09/11/24 01:11 09/11/24 01:06 09/11/24 01:06 09/11/24 01:03 09/11/24 01:00 09/11/24 00:50 Nasal Cannula 2 09/11/24 00:50 Nasal Cannula 2 09/11/24 00:48 09/11/24 00:36 09/11/24 00:36 09/11/24 00:36 Code Status & VTE Plan VTE Prophylaxis Plan VTE Prophylaxis will be ordered: Yes PG Care Time/CCT Total # of Minutes Spent Total Time Spent with Patient: Total time spent is greater than 50% in coordination of care (as documented) at patient's floor/unit and/or counseling patient: Coding Level of Care Code 47656 INT INP/OBS CARE 3/75MIN Diagnoses Septic shock A41.9; R65.21 Sacral wound S31.000A Persistent atrial fibrillation I48.19 Hyperthyroidism E05.90 Diabetes mellitus type 2 in obese E11.69; E66.9
--- NOTE | 2024-09-11 04:55 | XRay Report ---
EXAM: XR knee RT 1 or 2V routine CLINICAL HISTORY: OSTEOMYELITIS? S/P RT BKA, IMAGES OF STUMP KFK TECHNIQUE: X-ray images of the right knee were obtained in anteroposterior (AP) and lateral projections. COMPARISON: 08/17/2024. FINDINGS: Bone Structure: There is a right distal femoral metaphyseal mainly osteosclerotic lesion, extending to distal epiphyses, measuring 3.5x1.7cm, it has a narrow zone of transition, with sclerotic margins, no matrix calcification, no soft tissue component, no periosteal reaction, and no cortical breach. Bone structure is normal and well-aligned. No evidence of acute fractures or dislocations. Joint Spaces: Mild osteoarthritic changes of the right knee joint, noted as few osteophytes and sclerosis. No significant narrowing of the medial or lateral compartments. Patella: The patella is normal in position and alignment. No evidence of patellar dislocation or subluxation. Soft Tissues: Periarticular soft tissues appear normal and unremarkable. No soft tissue swelling, calcifications, or foreign bodies were noted. IMPRESSION: 1. Redemonstration of the distal femoral metaphyseal mainly osteosclerotic lesion, extending to distal epiphyses, measuring 3.5x1.7cm, it has benign features. 2. No gross lytic lesions in the residual tibia and fibula. No evident periosteal reaction. 3. Mild osteoarthritic changes of right knee joint, with no joint space narrowing. 4. Contrast-enhanced MRI is advised to rule out osteomyelitis. Disclaimer: A subtle bone abnormality or fracture may not be readily apparent on X-rays, thus clinical correlation and further imaging including follow-up CT, MRI, or follow-up X-rays are advised as needed. Electronically signed by Lupillo Child 09-11-2024 04:54 AM
--- NOTE | 2024-09-11 05:04 | XRay Report ---
EXAM: XR foot LT 2V CLINICAL HISTORY: OSTEOMYELITIS? S/P RT BKA, IMAGES OF STUMP KFK TECHNIQUE: X-ray images of the left foot were obtained in anteroposterior (AP), oblique, and lateral projections. COMPARISON: No prior studies are available for comparison. FINDINGS: Bone Structure: Posterior talus bone spur. The bone structure is normal and aligned. No evidence of fracture or dislocation. No osseous lesions or abnormalities were identified. Joint Spaces: Joint spaces are normal. No evidence of joint effusion or subluxation. Soft Tissues: Soft tissues appear normal and unremarkable. No soft tissue swelling, calcifications, or foreign bodies were noted. Additional Findings: No signs of osteoarthritis, bone spurs, lytic or sclerotic lesions. IMPRESSION: 1. Posterior talus bone spur. 2. No evidence of acute fracture, dislocation or gross lytic lesions. 3. Reduced bone density. DISCLAIMER:A subtle bone abnormality or fracture may not be readily apparent on x-rays, thus clinical correlation and further imaging including follow up CT, MRI, or follow up x-rays are advised as needed. Electronically signed by Lupillo Child 09-11-2024 05:04 AM
[2024-09-11 05:59] LABS: Phosphorus 3.4 mg/dl (2.5-4.9)
--- NOTE | 2024-09-11 06:02 | Critical Care Consultation ---
Date of Consultation September 11, 2024 Assessment & Plan (1) Septic shock: Reason Critically Ill: 69-year-old female with past medical history significant for atrial fibrillation (anticoagulated on Eliquis), PVD, CAD, Pulmonary hypertension, diastolic heart failure, And recent admission where she was brian gnosed with osteomyelitis of the right lower extremity and cellulitis of the left lower extremity. She underwent revascularization of the right iliac artery and debridement of bilateral lower extremities, however required right BKA, and was [facility]. [facility] now [facility] with increased confusion, and was sent to the emergency department where she was found to be hypotensive, with septic shock requiring vasopressor support. Neuro - Encephalopathysuspect this is likely metabolic given sepsis/UTI. - CT head Noncon currently pending. Follow-up report - Monitor closely for now Cardiac - Shocklikely septic in etiology Given underlying infection. Previous TTE with diastolic dysfunction, tricuspid regurg, and severe pulmonary hypertension. Patient did receive 2 L crystalloid bolus but remained hypotensive and required vasopressor support, currently on low-dose Levophed to maintain MAP greater than 65 -Random cortisol pending - Continue IV fluid resuscitation mindful of underlying heart failure/pulmonary hypertension - Hold Lasix and antihypertensives for now - Wean pressors as tolerated Persistent A-fibcontinue amiodarone, Eliquis. Continuous monitoring on telemetry. Currently in controlled rate on monitor Respiratory - Hypoxiapatient currently requiring nasal cannula to maintain oxygen saturation. Does not appear to have any significant history of pulmonary disease. Diastolic heart failure/pulmonary hypertension likely contributing giving aggressive fluid resuscitation. CXR with unilateral pulmonary congestion. Cannot rule out pneumonia at this time. CT chest currently pending. - Continue with supplemental oxygen support and wean as tolerated. -Hold on diuretics at this time given hypotension. -Continuous monitoring on pulse ox GI - N.p.o. for now. Advance diet as tolerated PPI RENAL/LYTES - Creatinine within normal limits. Monitor routine BMPs and replete electrolytes as indicated LR at 100 mL/h - Foleystrict I's and O's ENDO - DM type II? Currently euglycemic. Continue with sliding scale as tolerated HEME - H&H stable, monitor routine CBC ID - Sepsismultiple potential sources at this time with underlying UTI, possible pneumonia, and cannot rule out Soft tissue/osteo from previous wounds - CT chest and abdomen and pelvis pending read - Blood cultures and urine culture pending - Continue Zosyn, daptomycin for now LINES/IV ACCESS - Peripheral IVs DVT PROPHYLAXIS - Lynn Olmstead I have personally spent 64 minutes of critical care time in the direct management of this patient. This is a life/limb threatening event. This includes time spent evaluating patient, direct bedside care, chart review, placing orders, interpretation of diagnostic studies, discussion with consultants, patient, and family members, as well as other required patient management activities. This time is exclusive of all separately billable procedures, and teaching time and separate from and in addition to any other critical care service time. Thank you for allowing us to participate in the care of this patient. Please refer to my attending physician's documentation for any further recommendations. (2) Acute UTI: (3) Bilateral pneumonia: (4) Sacral wound: (5) Cellulitis of left lower leg: (6) Acute hypoxemic respiratory failure: (7) Persistent atrial fibrillation: Supervising Physician Co-Signing Physician Notes Patient seen and examined. EMR reviewed. Discussed with critical care RAYMOND and with bedside critical care nurse on multidisciplinary rounds. Agree with assessment plan as noted. Patient admitted with altered sensorium and multiorgan system dysfunction with multiple possible etiologies of infection including peritonitis, pneumonia, and soft tissue infections. I did review the CT imaging of her head. I think a diagnosis of NPH is unlikely and given her other underlying medical conditions currently, would not pursue lumbar puncture or additional intervention currently. If her mental status fails to clear with aggressive treatment of her underlying medical issues, additional evaluation at that point time may be warranted. Patient has evidence of multifocal pneumonia. Will continue daptomycin and Zosyn for now. Patient is too unstable to consider bronchoscopy currently. Will trend procalcitonin and clinical response including fever curve and white blood cell count. Antibiotics will be adjusted based on clinical response. My suspicion for infection of the stump from her amputation is somewhat low. As she has other more likely sources of infection (lung and GI), will defer additional imaging for now. Orthopedics has seen her in the past and getting them involved may be reasonable if she fails to improve. Will plan on pursuing paracentesis to characterize the ascitic fluid and exclude bacterial peritonitis. Antibiotics should be adequate for this entity currentl y. Unclear etiology for her ascitic fluid accumulation. Relative adrenal insufficiency. Start replacement steroids and wean pressors as tolerated. She is able to come off of vasoactive medications, she can likely transfer to the floor under the care of the hospitalist. Patient's overall prognosis is guarded. Functional status limited on presentation. An additional 40 minutes of critical care time exclusive of procedures was spent in evaluation management stabilization of this patient. History of Present Illness Attending Physician: Fatou Chilel DO History of Present Illness Patient is a 69-year-old female with past medical history PAF, PAD, CAD, DM type II, CAD, COPD, HTN, HF PEF and recent hospitalization from 07/31 to 08/25 where she was found to have osteomyelitis and underwent debridements of both lower extremities, intravascular stenting of the right external iliac artery, and a BKA of the right on 08/20. Following that admission she was discharged to [facility], from which she now returns To the emergency department with complaints of 1 week of confusion. On arrival patient was found to have leukocytosis and was hypotensive. She received 2 L crystalloid bolus but remained hypotensive and required vasopressor support with Levophed drip. She is now transferred to ICU for further management at this time. Allergies Allergy/AdvReac Type Severity Reaction Status Date / Time ciprofloxacin [Cipro] Allergy Mild SHORTNESS Verified 07/31/24 20:15 OF BREATH miconazole Allergy Mild Rash Verified 07/31/24 20:15 empagliflozin Allergy Unknown Unknown Verified 07/31/24 20:15 [From Jardiance] metformin Allergy Unknown Unknown Verified 07/31/24 20:15 Home Medications Medication Instructions Recorded Confirmed Type amiodarone 200 mg tablet 200 mg PO QAM 07/31/24 09/11/24 History apixaban 5 mg tablet (Eliquis) 5 mg PO QAM 07/31/24 09/11/24 History pantoprazole 40 mg tablet,delayed 40 mg PO QAM 07/31/24 09/11/24 History release atorvastatin 40 mg tablet 80 mg (2 x 40 mg) PO QAM #30 tabs 08/25/24 09/11/24 Rx furosemide 40 mg tablet 40 mg PO DAILY #0 tabs 08/25/24 09/11/24 Rx sertraline 50 mg tablet (Zoloft) 50 mg PO DAILY USES FOR ANXIETY #0 08/25/24 09/11/24 Rx tabs spironolactone 100 mg tablet 100 mg PO QAM #30 tabs 08/25/24 09/11/24 Rx Boost Glucose Control 1 btl PO BID 09/11/24 09/11/24 History acetaminophen 500 mg capsule 500 mg PO QID 09/11/24 09/11/24 History ferrous sulfate 325 mg (65 mg 325 mg PO DAILY 09/11/24 09/11/24 History iron) tablet folic acid 1 mg tablet 1 mg PO DAILY 09/11/24 09/11/24 History gabapentin 100 mg capsule 100 mg PO BID 09/11/24 09/11/24 History oxycodone 5 mg tablet 5 mg PO Q6 PRN Severe Pain (Scale 09/11/24 09/11/24 History Score 7-10) polyethylene glycol 3350 17 gram 17 g PO BID 09/11/24 09/11/24 History oral powder packet (Miralax) potassium chloride 10 mEq 10 meq PO DAILY 09/11/24 09/11/24 History tablet,extended release povidone-iodine 10 % topical 1 ml topical DAILY heel pressure 09/11/24 09/11/24 History solution (Betadine) ulcer protein supplement 1 ea PO TID 09/11/24 09/11/24 History sennosides 8.6 mg-docusate sodium 2 tab PO HS 09/11/24 09/11/24 History 50 mg tablet (Senna Plus) Patient History Medical History Tachy-reema syndrome Encounter for pre-operative examination Peripheral arterial disease Osteomyelitis of foot, right, acute 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 Pulmonary hypertension Paroxysmal atrial fibrillation Bradycardia Acute on chronic heart failure with preserved ejection fraction (HFpEF) CAD (coronary artery disease) Ex-smoker COPD with emphysema NSTEMI (non-ST elevated myocardial infarction) Anticoagulant long-term use SOB (shortness of breath) Hypertension Social History Smoking Status: Former smoker Tobacco Type: Cigarettes Smoking End Date: 10 years ago; Second Hand Exposure: No; Tobacco Cessation Education Requested by Patient: No Hx Alcohol Use: No Hx Substance Use: No Preferred Language: Setswana Communication Ability: Effective Museum Or Zoo Director Required: No Beliefs That Will Affect Care: None marital status: Single Current Living Situation: Rehab Current Living Situation Comment: rehab at [facility] Other Information That Helps Us Care for You: No Feels Safe at Home: Yes Safety Concerns: Feels Safe At This Time Assistive Devices: Glasses and Walker Review of Systems Review of Systems: Unobtainable due to cognitive status Physical Exam Constitutional: + frail appearing; no acute distress Eyes: PERRL, conjunctivae normal, anicteric sclerae ENMT: external ear and nose normal, oropharynx normal Neck: trachea midline, no thyromegaly Respiratory: normal respiratory effort, lungs clear to auscultation Cardiovascular: Rate/Rhythm: + tachycardic and + irregularly irregular Heart Sounds: no murmur Extremities: no edema Gastrointestinal (Abdomen): Abdomen distended, semifirm, nontender. Bowel sounds auscultated all 4 quadrants Musculoskeletal: Right lower extremity BKA Skin: Superficial sacral ulcer, wound to the left anterior portion of the foot, Right BKA appears well-approximated without purulent drainage or significant erythema Neurologic: Confused, obtunded. PERRLA. Appears to move extremities bilaterally with equal strength. Does not follow commands Genitourinary: Indwelling Gould catheter present. Urine yellow, concentrated Results & Data Results & Data Vital Signs (Past 12 Hours) Vital Signs Temp Pulse Pulse Resp BP BP Pulse Ox 09/11/24 04:32 111 H 09/11/24 03:24 101 H 17 92/66 L 97 09/11/24 03:09 100 H 16 94/71 L 95 09/11/24 02:54 109 H 17 100 09/11/24 02:50 104/71 09/11/24 02:48 108 H 15 100 09/11/24 02:45 105 H 15 100 09/11/24 02:45 108/70 09/11/24 02:45 108/70 09/11/24 02:40 105/64 09/11/24 02:35 99/63 L 09/11/24 02:30 91/69 L 09/11/24 02:27 103 H 17 68 L 09/11/24 02:25 106/65 09/11/24 02:25 106/65 09/11/24 02:20 83/62 L 09/11/24 02:15 115 H 16 92 09/11/24 02:15 89/58 L 09/11/24 02:06 114 H 18 98 09/11/24 02:05 87/63 L 09/11/24 02:03 120 H 15 100 09/11/24 02:00 84/52 L 09/11/24 01:55 88/62 L 09/11/24 01:54 115 H 18 96 09/11/24 01:50 87/64 L 09/11/24 01:40 117 H 20 88/58 L 99 09/11/24 01:30 85/59 L 09/11/24 01:30 117 H 20 85/59 L 99 09/11/24 01:25 81/57 L 09/11/24 01:24 107 H 18 100 09/11/24 01:21 118 H 17 100 09/11/24 01:21 110 H 21 09/11/24 01:21 93 09/11/24 01:21 36.7 C 137 H 21 92/73 L 99 09/11/24 01:20 84/59 L 09/11/24 01:18 114 H 14 100 09/11/24 01:16 86/62 L 09/11/24 01:16 86/62 L 09/11/24 01:12 121 H 17 99 09/11/24 01:11 81/69 L 09/11/24 01:06 120 H 17 91 09/11/24 01:06 80/60 L 09/11/24 01:03 120 H 18 93 09/11/24 01:00 96/67 L 09/11/24 00:50 131 H 20 96/67 L 93 09/11/24 00:50 131 H 18 96 09/11/24 00:48 93/69 L 09/11/24 00:36 92/73 L 09/11/24 00:36 92/73 L 09/11/24 00:36 132 H O2 Del Method O2 Flow Rate 09/11/24 04:32 09/11/24 03:24 Nasal Cannula 2 09/11/24 03:09 Nasal Cannula 2 09/11/24 02:54 09/11/24 02:50 09/11/24 02:48 09/11/24 02:45 09/11/24 02:45 09/11/24 02:45 09/11/24 02:40 09/11/24 02:35 09/11/24 02:30 09/11/24 02:27 09/11/24 02:25 09/11/24 02:25 09/11/24 02:20 09/11/24 02:15 09/11/24 02:15 09/11/24 02:06 09/11/24 02:05 09/11/24 02:03 09/11/24 02:00 09/11/24 01:55 09/11/24 01:54 09/11/24 01:50 09/11/24 01:40 09/11/24 01:30 09/11/24 01:30 09/11/24 01:25 09/11/24 01:24 09/11/24 01:21 09/11/24 01:21 09/11/24 01:21 Nasal Cannula 2 09/11/24 01:21 Nasal Cannula 2 09/11/24 01:20 09/11/24 01:18 09/11/24 01:16 09/11/24 01:16 09/11/24 01:12 09/11/24 01:11 09/11/24 01:06 09/11/24 01:06 09/11/24 01:03 09/11/24 01:00 09/11/24 00:50 Nasal Cannula 2 09/11/24 00:50 Nasal Cannula 2 09/11/24 00:48 09/11/24 00:36 09/11/24 00:36 09/11/24 00:36 Coding Level of Care Code 42647 CRITICAL CARE EA ADD 30M Diagnoses Septic shock A41.9; R65.21 Acute UTI N39.0 Bilateral pneumonia J18.9 Sacral wound S31.000A Cellulitis of left lower leg L03.116 Acute hypoxemic respiratory failure J96.01 Persistent atrial fibrillation I48.19
[2024-09-11 06:15] LABS: Thyroid Stimulating Hormone 5.11 uIu/ml (0.300-4.500)
[2024-09-11 06:16] LABS: C Reactive Protein 37.77 mg/dl (0-0.5)
[2024-09-11] MEDS: PIPERACILLIN/TAZOBACTAM 4.5 GM/100 ML BAG IV SCH (06:44)
--- NOTE | 2024-09-11 06:53 | Hospitalist Progress Note ---
Date of Service September 11, 2024 Assessment & Plan (1) Septic shock: Plan: 69yo female with history of right BKA due to osteomyelitis in the last month, PVD, PAF on Eliquis, COPD on 2L O2 at baseline and HFpEF presenting with one week of progressive confusion at her facility [facility]. Septic shock present on arrival: Hypotensive, tachycardic with neutrophil predominant leukocytosis, elevated procalcitonin. Has been receiving IV fluids and is presently on levophed 0.03mcg/kg/min with improved BP now 107/69. Source unclear at this time but has several potential sources: - UA does suggest infection. - CXR with bilateral infiltration L>R - sacral decubitus ulcer, present on arrival - BKA of RLE due to osteomyelitis about 3 weeks ago - MRSA nares: negative - X-ray of RLE and LLE -> consider contrast-enhanced MRI to rule out osteomyelitis in RLE; LLE no acute change - CT abdomen: see impression under diagnostic findings - consider aspiration of ascitic fluid - Follow cultures sent from the ER - urine, blood and wound -Continue IVF - Monitor fluid status. Last presented with significant volume overload secondary to acute on chronic HFpEF requiring aggressive diuresis. -Continue Levophed goal MAP =65 -Continue broad spectrum antibiotics - Zosyn and Daptomycin. Patient did have Pseudomonas present in right ankle wound -Tylenol PRN -Zofran PRN (2) Acute UTI: Plan: UA showing 4+ bacteria, receiving IV Zosyn and daptomycin - follow urine cultures (3) Bilateral pneumonia: Plan: multifocal pneumonia L>R - continue IV Zosyn and Daptomycin - satting well on 2L NC (4) Altered mental status: Plan: GCS 6, continue assessing for changes in mental status - see CT Head results in diagnostic findings; consider brain MRI for further evaluation of hypodense areas (5) Cellulitis of left lower leg: Plan: shallow ulceration on heel and dorsal aspect of foot - continue IV Zosyn and daptomycin - Turn and position q2 hours - continue wound care - nutrition consultation - pending wound cultures (6) Sacral wound: Plan: Patient with Stage II sacral and thigh wounds, ulcerations present on LLE as well. - continue IV Zosyn and daptomycin - Turn and position q 2 hours - Wound care - Nutrition consultation - pending wound cultures (7) Acute hypoxemic respiratory failure: Plan: currently on 2L NC satting 98% (8) Persistent atrial fibrillation: Plan: Atrial fibrillation, on Eliquis anticoagulation and Amiodarone for rhythm control. Previously on metoprolol. -Continue Amiodarone -Continue Eliquis - per chart review, takes this daily rather than BID -TSH: 5.11, could be elevated as acute phase reactant (9) Hyperthyroidism: Plan: Patient previously on Methimazole which was held during last admission due to elevated TSH. - TSH 5.11, could be elevated as an acute phase reactant (10) Diabetes mellitus type 2 in obese: Plan: Blood sugar presently 94. Overall very well controlled - last HgbA1C on 08/01/24 = 5.7. Was previously on Januvia which was discontinued on last discharge. -Diet controlled -Daily BMP Plan PAD -Patient was on Plavix until 09/07 -Resume ASA 81mg po daily -Holding Atorvastatin for now while on Daptomycin F/E/N - LR at 100mL/hr x 2L, monitor electrolytes - check PO4 given poor oral intake, minced/moist diet as tolerated with aspiration precautions, oral hygiene q shift Ppx - Continue daily Eliquis Code - Full per discussion with patient and daughter at bedside Dispo - MICU for continued Levophed Admission and Anticipated Discharge Date Admission Date: September 11, 2024 Supervising Physician Co-Signing Physician Notes I personally examined the patient and verified sharma points of history and exam, discussed case, and agree with decision making and plan documented by Dr. Emmanuel. Patient currently admitted to critical care. Daughter Sara and boyfriend Cody at bedside. Subjective Patient was seen and evaluated at bedside in ICU, on 2L NC and appearing to be sleeping. Patient was arousable, opened eyes upon saying patient's name, making good eye contact but mostly moaning for verbal responses. One time pt answered "no" to if she is in any pain, however on exam it was apparent that she was in pain with palpation of certain areas, i.e. RLE and LLE. Unable to gauge whether she has been eating or having bowel movements. Indwelling tena in place. Daughter present, states she has been "confused" since before her BKA surgery on 08/20/24 but since then she's been declining, for example not returning her calls when pt is at [place]. Daughter understanding that pt's sepsis could be due to one or more of multiple sources, including her UTI, pneumonia, sacral ulcer, left foot ulcers, or right stump infection post BKA. Patient is afebrile, not having cough or apparent shortness of breath. Unable to gauge other significant ROS. Review of Systems Review of Systems: per HPI Physical Exam Physical Exam: Constitutional: alert, unable to gauge patient orientation due to unmeaningful responses HEENT: NC/AT, anicteric sclerae, unable to gauge EOM status Cardiovascular: mildly tachycardic regular, +s1/s2, no m/r/g Respiratory: mild coarse breath sounds b/l to auscultation, fair air entry b/l, no wheeze/rales/rhonchi GI: abdomen mildly distended, hypoactive bowel sounds, abdomen tympanic to percussion; moans with palpation of abdomen MSK: unable to assess strength; dressings in place on RLE BKA stump and LLE foot; shallow ulceration of L foot dorsal surface and heel; stage II sacral ulcer Neuro: GCS 6- opens eyes w/ verbal stimulus, nonsensical vocal responses, and no significant movement with pain (palpation of RLE stump, pt moaned likely due to pain) Results & Data Results & Data Vital Signs (Past 12 Hours) Vital Signs Temp Pulse Pulse Resp BP BP Pulse Ox 09/11/24 06:00 111 H 17 102/64 99 09/11/24 05:46 105 H 21 85/53 L 100 09/11/24 05:32 09/11/24 05:32 113 H 09/11/24 05:30 112 H 12 114/63 87 L 09/11/24 05:15 114 H 21 111/77 90 09/11/24 04:32 111 H 09/11/24 03:24 101 H 17 92/66 L 97 09/11/24 03:09 100 H 16 94/71 L 95 09/11/24 02:54 109 H 17 100 09/11/24 02:50 104/71 09/11/24 02:48 108 H 15 100 09/11/24 02:45 105 H 15 100 09/11/24 02:45 108/70 09/11/24 02:45 108/70 09/11/24 02:40 105/64 09/11/24 02:35 99/63 L 09/11/24 02:30 91/69 L 09/11/24 02:27 103 H 17 68 L 09/11/24 02:25 106/65 09/11/24 02:25 106/65 09/11/24 02:20 83/62 L 09/11/24 02:15 115 H 16 92 09/11/24 02:15 89/58 L 09/11/24 02:06 114 H 18 98 09/11/24 02:05 87/63 L 09/11/24 02:03 120 H 15 100 09/11/24 02:00 84/52 L 09/11/24 01:55 88/62 L 09/11/24 01:54 115 H 18 96 09/11/24 01:50 87/64 L 09/11/24 01:40 117 H 20 88/58 L 99 09/11/24 01:30 85/59 L 09/11/24 01:30 117 H 20 85/59 L 99 09/11/24 01:25 81/57 L 09/11/24 01:24 107 H 18 100 09/11/24 01:21 118 H 17 100 09/11/24 01:21 110 H 21 09/11/24 01:21 93 09/11/24 01:21 36.7 C 137 H 21 92/73 L 99 09/11/24 01:20 84/59 L 09/11/24 01:18 114 H 14 100 09/11/24 01:16 86/62 L 09/11/24 01:16 86/62 L 09/11/24 01:12 121 H 17 99 09/11/24 01:11 81/69 L 09/11/24 01:06 120 H 17 91 09/11/24 01:06 80/60 L 09/11/24 01:03 120 H 18 93 09/11/24 01:00 96/67 L 09/11/24 00:50 131 H 20 96/67 L 93 09/11/24 00:50 131 H 18 96 09/11/24 00:48 93/69 L 09/11/24 00:36 92/73 L 09/11/24 00:36 92/73 L 09/11/24 00:36 132 H O2 Del Method O2 Flow Rate 09/11/24 06:00 09/11/24 05:46 09/11/24 05:32 Nasal Cannula 2 09/11/24 05:32 09/11/24 05:30 09/11/24 05:15 09/11/24 04:32 09/11/24 03:24 Nasal Cannula 2 09/11/24 03:09 Nasal Cannula 2 09/11/24 02:54 09/11/24 02:50 09/11/24 02:48 09/11/24 02:45 09/11/24 02:45 09/11/24 02:45 09/11/24 02:40 09/11/24 02:35 09/11/24 02:30 09/11/24 02:27 09/11/24 02:25 09/11/24 02:25 09/11/24 02:20 09/11/24 02:15 09/11/24 02:15 09/11/24 02:06 09/11/24 02:05 09/11/24 02:03 09/11/24 02:00 09/11/24 01:55 09/11/24 01:54 09/11/24 01:50 09/11/24 01:40 09/11/24 01:30 09/11/24 01:30 09/11/24 01:25 09/11/24 01:24 09/11/24 01:21 09/11/24 01:21 09/11/24 01:21 Nasal Cannula 2 09/11/24 01:21 Nasal Cannula 2 09/11/24 01:20 09/11/24 01:18 09/11/24 01:16 09/11/24 01:16 09/11/24 01:12 09/11/24 01:11 09/11/24 01:06 09/11/24 01:06 09/11/24 01:03 09/11/24 01:00 09/11/24 00:50 Nasal Cannula 2 09/11/24 00:50 Nasal Cannula 2 09/11/24 00:48 09/11/24 00:36 09/11/24 00:36 09/11/24 00:36 Laboratory Results Abnormal lab results 09/11/24 09/11/24 09/11/24 Range/Units 00:40 00:50 02:16 WBC 14.37 H (4.8-10.8) K/ul RBC 3.45 L (4.20-5.40) M/uL Hgb 9.5 L (12.0-16.0) g/dl Hct 32.1 L (37.0-47.0) % MCHC 29.6 L (32.0-36.0) g/dL RDW Std Deviation 76.0 H (36.4-46.3) fL RDW Coeff of Rasheed 22.5 H (11.5-14.5) % Neut # (Auto) 12.97 H (1.40-6.50) K/uL Lymph # (Auto) 0.56 L (1.20-3.40) K/uL Summers # (Auto) 0.63 H (0.11-0.59) K/uL Chloride 108 H (98-107) mmol/L BUN 27 H (6-23) mg/dl BUN/Creatinine Ratio 40.3 H (10-20) POC Glucose (70-99) mg/dl Calcium 7.7 L (8.6-10.3) mg/dl Ionized Calcium (1.12-1.32) mmol/L AST 95 H (13-39) U/L Alkaline Phosphatase 139 H (34-104) U/L Troponin I High Sens 25.3 H 17.9 H D (0-14) pg/ml C-Reactive Protein 37.77 H (0-0.5) mg/dl Total Protein 5.7 L (6.0-8.3) gm/dl Albumin 2.3 L (3.4-5.0) gm/dl Procalcitonin 4.85 H (0-0.5) ng/ml TSH 5.110 H (0.300-4.500) uIu/ml Urine Appearance Cloudy A (Clear) Urine Protein 1+ H (Negative) Urine Ketones Trace H (Negative) Urine Nitrite Positive A (Negative) Ur Leukocyte Esterase 2+ H (Negative) Urine WBC (Auto) >50 H (0-5) /hpf U Hyaline Cast (Auto) 3-5 H (0-2) /lpf Urine Bacteria (Auto) 4+ H (None Seen) 09/11/24 09/11/24 09/11/24 Range/Units 05:36 07:24 10:34 WBC (4.8-10.8) K/ul RBC (4.20-5.40) M/uL Hgb (12.0-16.0) g/dl Hct (37.0-47.0) % MCHC (32.0-36.0) g/dL RDW Std Deviation (36.4-46.3) fL RDW Coeff of Rasheed (11.5-14.5) % Neut # (Auto) (1.40-6.50) K/uL Lymph # (Auto) (1.20-3.40) K/uL Summers # (Auto) (0.11-0.59) K/uL Chloride (98-107) mmol/L BUN (6-23) mg/dl BUN/Creatinine Ratio (10-20) POC Glucose 111 H 101 H (70-99) mg/dl Calcium (8.6-10.3) mg/dl Ionized Calcium 1.08 L (1.12-1.32) mmol/L AST (13-39) U/L Alkaline Phosphatase (34-104) U/L Troponin I High Sens (0-14) pg/ml C-Reactive Protein (0-0.5) mg/dl Total Protein (6.0-8.3) gm/dl Albumin (3.4-5.0) gm/dl Procalcitonin (0-0.5) ng/ml TSH (0.300-4.500) uIu/ml Urine Appearance (Clear) Urine Protein (Negative) Urine Ketones (Negative) Urine Nitrite (Negative) Ur Leukocyte Esterase (Negative) Urine WBC (Auto) (0-5) /hpf U Hyaline Cast (Auto) (0-2) /lpf Urine Bacteria (Auto) (None Seen) 09/11/24 Range/Units 16:14 WBC (4.8-10.8) K/ul RBC (4.20-5.40) M/uL Hgb (12.0-16.0) g/dl Hct (37.0-47.0) % MCHC (32.0-36.0) g/dL RDW Std Deviation (36.4-46.3) fL RDW Coeff of Rasheed (11.5-14.5) % Neut # (Auto) (1.40-6.50) K/uL Lymph # (Auto) (1.20-3.40) K/uL Summers # (Auto) (0.11-0.59) K/uL Chloride (98-107) mmol/L BUN (6-23) mg/dl BUN/Creatinine Ratio (10-20) POC Glucose 113 H (70-99) mg/dl Calcium (8.6-10.3) mg/dl Ionized Calcium (1.12-1.32) mmol/L AST (13-39) U/L Alkaline Phosphatase (34-104) U/L Troponin I High Sens (0-14) pg/ml C-Reactive Protein (0-0.5) mg/dl Total Protein (6.0-8.3) gm/dl Albumin (3.4-5.0) gm/dl Procalcitonin (0-0.5) ng/ml TSH (0.300-4.500) uIu/ml Urine Appearance (Clear) Urine Protein (Negative) Urine Ketones (Negative) Urine Nitrite (Negative) Ur Leukocyte Esterase (Negative) Urine WBC (Auto) (0-5) /hpf U Hyaline Cast (Auto) (0-2) /lpf Urine Bacteria (Auto) (None Seen) Diagnostic Findings CT Head: IMPRESSION: 1. Dilated both lateral ventricles, rounding of frontal horns, ballooning of third ventricle, out or proportion to age-related involutional brain changes, could be due to hydrocephalus (Normal pressure hydrocephalus/ obstructive hydrocephalus) advised clinical correlation and MRI CSF-flowmetry study if clinically warranted 2. Immediate periventricular hypodensity, seen related to frontal horns, could be due to trans ependymal CSF permeation or small vessel ischemic vasculopathy-related changes 3. The right cerebellar peripheral hypodense area could be due to ischemic insult advised clinical correlation and MRI with diffusion if clinically warranted 4. Right lentiform 5mm hypodensity seen, could be lacunar infarct. ~~~~~~~~~~~~~~~~~~~~~~~~~~~~~~~~~~~~~~~~~~~~~~~~~~~~~~~~~~ CT abdomen/pelvis: IMPRESSION: 1. Extensive relatively dense opacification in the left lower lobe with irregular margins suggests an inflammatory consolidation with a moderate left pleural effusion.(new findings in comparison with CT on 08/14/2024) 2. A large locule ascites is noted in the pelvis and the abdomen measures up to 20cm. with patchy fat stranding in the abdomen.( mild regression in comparison with CT on 08/14/2024 )(stable) 3. A small non-obstructing calculus in the right renal lower pole is noted. 4. There is a diffuse increased liver density could be a side effect of medicine or blood transformation. 5. The gallbladder is over-distended with dependent hyperattenuating levels within and mild smooth wall thickening(stable), could be due to prolonged fasting or due to cholecystitis, needs clinical correlation. 6. Patchy sclerotic changes were noted in the scanned vertebrae, which could be due to renal failure or less likely suspicious lesion, need for bone scan correlation if clinically warranted.(stable) ~~~~~~~~~~~~~~~~~~~~~~~~~~~~~~~~ CT Chest IMPRESSION: 1. Multifocal pneumonia most significant in the left lower lobe and left perihilar upper lobe. Follow-up until resolution needed to exclude underlying mass. 2. COPD. 3. Dilated gallbladder possibly inflamed. 4. Dense liver. Diagnostic considerations include but are not limited to effects of certain cardiac medications and hemochromatosis. Resident Activity Tracking Resident Involvement: Resident Care Provided Care Provided: Adult Hospital Medicine
--- NOTE | 2024-09-11 07:19 | CT Scan Report ---
EXAM: CT head/brain wo con CLINICAL HISTORY: ams , sepsis , sob , diffuse pain TECHNIQUE: An axial non-contrast CT scan of the brain was performed from the skull base to the high parietal region. One of the following dose reduction techniques were utilized for this exam: Automated exposure control, adjustment of the mA and/or kV according to patient size, use of iterative reconstruction. COMPARISON: No prior studies available for comparison FINDINGS: Dilated both lateral ventricles, rounding of frontal horns, ballooning of third ventricle, out or proportion to age-related involtuional brain changes, could be due to hydrocephalus (Normal pressure hydrocephalus/ obstructive hydrocephalus) advised clinical correlation and MRI CSF-flowmetry study if clinically warranted Immediate periventricular hypodensity, seen related to frontal horns, could be due to trans ependymal CSF permeation or small vessel ischemic vasculopathy-related changes Right cerebellar peripheral hypodense area, could be due to ischemic insult advised clinical correlation and MRI with diffusion if clinically warranted Right lentiform 5mm hypodensity seen, could be lacunar infarct Brain Parenchyma: No evidence of hemorrhage, or mass effect. No abnormal areas of hyperattenuation. Subarachnoid Spaces: No evidence of subarachnoid hemorrhage or extra-axial fluid collections. Cerebellum and Brainstem: Normal size and attenuation. Orbits: Normal appearance of the globes, optic nerves, and extraocular muscles. Sinuses: Clear paranasal sinuses. No evidence of sinusitis or mucosal thickening. Mastoid Air Cells: Clear mastoid air cells. No evidence of mastoiditis. Skull and Meninges: Normal skull morphology. IMPRESSION: 1. Dilated both lateral ventricles, rounding of frontal horns, ballooning of third ventricle, out or proportion to age-related involutional brain changes, could be due to hydrocephalus (Normal pressure hydrocephalus/ obstructive hydrocephalus) advised clinical correlation and MRI CSF-flowmetry study if clinically warranted 2. Immediate periventricular hypodensity, seen related to frontal horns, could be due to trans ependymal CSF permeation or small vessel ischemic vasculopathy-related changes 3. The right cerebellar peripheral hypodense area could be due to ischemic insult advised clinical correlation and MRI with diffusion if clinically warranted 4. Right lentiform 5mm hypodensity seen, could be lacunar infarct. [facility]'s ER was called at at 6:10 AM BRILLIANDEER LOOPER, 09/11/2024, and nurse Plata was informed about the presence of significant medical findings. Electronically signed by Lupillo Child 09-11-2024 07:18 AM
[2024-09-11] MEDS: LACTATED RINGER'S 1,000 ML IV SCH (07:23)
--- NOTE | 2024-09-11 07:26 | CT Scan Report ---
EXAM: CT abd pelvis wo con CLINICAL HISTORY: ams , sepsis , sob , diffuse pain TECHNIQUE: Non-contrast CT of the abdomen and pelvis was performed, with the following protocol: axial images, and reconstructed coronal and sagittal images. No intravenous contrast was administered. One of the following dose reduction techniques was utilized for this exam: Automated exposure control, adjustment of the mA and/or kV according to patient size, and use of iterative reconstruction. COMPARISON: 08/14/2024. FINDINGS: Abdomen: Liver: Normal in size and shape, there is a diffuse increased liver density could be a side effect of medicine or blood transformation. No focal lesions, cysts, or masses were identified. Gallbladder and Biliary System: The gallbladder is over-distended with dependent hyperattenuating levels within it and mild smooth wall thickening. Pancreas: Pancreatic head, body, and tail are visualized and appear normal in size and density. No pancreatic masses or calcifications were noted. Spleen: Normal in size, shape, and density. No splenic lesions or masses were identified. Kidneys and Adrenal Glands: Both kidneys are normal in size, shape, and position. Cortical thickness is within normal limits. No renal hydronephrosis. a 4mm nonobstructing calculus in the right lower pole is noted. Adrenal glands are unremarkable. Appendix: Not well visualized but no gross abnormalities noted. Pelvis: Urinary Bladder: empty with catheter within it in contour and wall thickness. No intraluminal lesions. Uterus: Normal in size and contour. No masses or abnormal thickening. Ovaries: Not well visualized but no gross abnormalities noted. Vagina: Normal in contour and wall thickness. Cervix: No evidence of mass or abnormal thickening. Peritoneal and Retroperitoneal Structures: A large locule ascites is noted in the pelvis and the abdomen measures up to 20cm. with patchy fat stranding in the abdomen. No lymphadenopathy was noted. Bowel: The visualized bowel loops are normal in caliber and appearance. No evidence of bowel obstruction or wall thickening. The lower thorax Extensive relatively dense opacification in the left lower lobe with irregular margins suggests an inflammatory consolidation. Moderte left pleural effusion. Mild right pleural reaction (regression in comparison with CT on 08/14/2024 ) Moderate cardiomegaly. Bones and Soft Tissues: Patchy sclerotic changes were noted in the scanned vertebrae, No acute fractures were identified. IMPRESSION: 1. Extensive relatively dense opacification in the left lower lobe with irregular margins suggests an inflammatory consolidation with a moderate left pleural effusion.(new findings in comparison with CT on 08/14/2024) 2. A large locule ascites is noted in the pelvis and the abdomen measures up to 20cm. with patchy fat stranding in the abdomen.( mild regression in comparison with CT on 08/14/2024 )(stable) 3. A small non-obstructing calculus in the right renal lower pole is noted. 4. There is a diffuse increased liver density could be a side effect of medicine or blood transformation. 5. The gallbladder is over-distended with dependent hyperattenuating levels within and mild smooth wall thickening(stable), could be due to prolonged fasting or due to cholecystitis, needs clinical correlation. 6. Patchy sclerotic changes were noted in the scanned vertebrae, which could be due to renal failure or less likely suspicious lesion, need for bone scan correlation if clinically warranted.(stable) [facility]'s ER was called at at 6:10 AM GERIATRIC ASSISTANT, 09/11/2024, and nurse Plata was informed about the presence of significant medical findings. Electronically signed by Lupillo Child 09-11-2024 07:26 AM
--- NOTE | 2024-09-11 08:24 | CT Scan Report ---
EXAM: CT Chest Without Intravenous Contrast INDICATION: Sepsis. Pain. TECHNIQUE: Axial computed tomography images of the chest without intravenous contrast. Sagittal and coronal reformatted images were created and reviewed. This CT exam was performed using one or more of the following dose reduction techniques: automated exposure control, adjustment of the mA and/or kV according to patient size, and/or use of iterative reconstruction technique. COMPARISON: Chest x-ray the same day FINDINGS: Limitations: None. Lungs and pleural spaces: There are multifocal groundglass and consolidative infiltrates most significant in the left lower lobe and left perihilar upper lobe. Masslike consolidation in the left lower lobe measures 6.0 x 4.1 x 6.0 cm. Multiple distal airway mucous plugs noted in the lower lobes. No pneumothorax. Centrilobular emphysematous changes noted without dominant bulla or bleb. No bronchiectasis. Heart: No abnormality noted. Thyroid: Bilateral dense thyroid calcifications noted. No further assessment required. Bones/joints: Degenerative changes noted throughout the spine. No acute osseous abnormality seen. Soft tissues: No significant abnormality noted. Vasculature: See below. Lymph nodes: Enlarged 1.2 cm short axis dimension precarinal lymph node identified. Smaller nodes in the paratracheal and lateral aortic compartment. Hilar adenopathy not excluded. Liver: The liver is dense. Smooth contour. Gallbladder and bile ducts: Dilated possibly inflamed gallbladder. IMPRESSION: 1. Multifocal pneumonia most significant in the left lower lobe and left perihilar upper lobe. Follow-up until resolution needed to exclude underlying mass. 2. COPD. 3. Dilated gallbladder possibly inflamed. 4. Dense liver. Diagnostic considerations include but are not limited to effects of certain cardiac medications and hemochromatosis. ACT 112: Negative or not required by law. Electronically signed by Barbara Moscoso 09-11-2024 08:24 AM
[2024-09-11] MEDS: PANTOprazole 40 MG/10 ML SYR IV SCH (08:47)
[2024-09-11] MEDS: HYDROCORTISONE SOD 50 MG in SYRINGE 0 ML IV SCH (08:48)
[2024-09-11] MEDS: ICU Protocol for HYPERglycemia SCH (08:48)
[2024-09-11] MEDS: SERTRALINE HCL 50 MG TABLET PO SCH (10:22)
[2024-09-11] MEDS: APIXABAN 5 MG TABLET PO SCH (10:22)
[2024-09-11] MEDS: ALBUMIN 25% 12.5 GM/50 ML VIAL IV SCH (10:28)
[2024-09-11 10:48] LABS: Albumin Peritoneal Fluid 1.6 gm/dl
[2024-09-11 10:54] LABS: Total Protein Peritoneal Fluid 3.5 gm/dl
[2024-09-11] MEDS: ASPIRIN 81 MG ECTAB PO SCH (11:18)
[2024-09-11] MEDS: AMIODARONE 200 MG TAB PO SCH (11:18)
[2024-09-11] MEDS: GABAPENTIN 100 MG CAP PO SCH (11:20)
[2024-09-11 11:22] LABS: Appearance Peritoneal Fluid Clear; Color Peritoneal Fluid Yellow; RBC Peritoneal Fluid Auto < 2000 /uL; WBC Peritoneal Fluid Auto 32 /ul (0-300)
[2024-09-11 12:22] LABS: Lymphocytes, Fluid 1 %; Mono,Macrophage,Mesothelial 89 %; Neutrophils, Fluid 10 %
--- NOTE | 2024-09-11 13:05 | Electrocardiogram Report ---
Test Reason : Blood Pressure : */* mmHG Vent. Rate : 126 BPM Atrial Rate : * BPM P-R Int : * ms QRS Dur : 90 ms QT Int : 344 ms P-R-T Axes : * 104 269 degrees QTcB Int : 498 ms Atrial fibrillation with rapid ventricular response Rightward axis Abnormal ECG When compared with ECG of 09-Aug-2024 07:04, QRS duration has decreased Inverted T waves have replaced nonspecific T wave abnormality in Anterior leads Confirmed by Tim Farr [id number]) on 09/11/2024 1:04:43 PM Referred By: Fior Palma Confirmed By: Tim Farr
[2024-09-11] MEDS: DAPTOmycin 350 MG in SYRINGE 0 ML IV SCH (19:40)
[2024-09-11] MEDS: DOCUSATE SODIUM/SENNA 50/8.6MG TAB PO SCH (19:49)
[2024-09-12 04:59] LABS: Hematocrit (blood only) 30.1 % (37.0-47.0); Hemoglobin 8.9 g/dl (12.0-16.0); Mean Corpuscular Hemoglobin 27.5 pg (25.0-34.0); Mean Corpuscular Hgb Conc 29.6 g/dL (32.0-36.0); Mean Corpuscular Volume 92.9 fL (80.0-100.0); Mean Platelet Volume 11.3 fL (9.4-12.4); Platelet Count 217 K/uL (130-400); RDW Coefficient of Variation 21.7 % (11.5-14.5); RDW Standard Deviation 73.7 fL (36.4-46.3); Red Blood Count 3.24 M/uL (4.20-5.40); White Blood Count 9.69 K/ul (4.8-10.8)
[2024-09-12 05:18] LABS: Albumin Level 2.9 gm/dl (3.4-5.0); BUN Creatinine Ratio 39.4 (10-20); Bilirubin Direct 0.2 mg/dl (0-0.2); Bilirubin,Total 0.7 mg/dl (0.2-1.0); Calcium 8.1 mg/dl (8.6-10.3); Creatinine Clr Calc Pharmacy 142.9 ml/min; Magnesium 1.7 mg/dl (1.7-2.4); Phosphorus 2.5 mg/dl (2.5-4.9); Potassium 3.3 mmol/L (3.5-5.1); Total Protein 5.7 gm/dl (6.0-8.3)
[2024-09-12] MEDS: ICU ELECTROLYTE REPLACEMENT PROTOCOL SCH (06:27)
[2024-09-12] MEDS: POT PHOSPHATE MONOBASIC W/ SOD TAB PO SCH (06:37)
[2024-09-12] MEDS: POTASSIUM CHLORIDE CRTAB 20 MEQ TABCR PO SCH (06:37)
--- NOTE | 2024-09-12 06:37 | Hospitalist Progress Note ---
Date of Service September 12, 2024 Assessment & Plan (1) Septic shock: Plan: 69yo female with history of right BKA due to osteomyelitis in the last month, PVD, PAF on Eliquis, COPD on 2L O2 at baseline and HFpEF presenting with one week of progressive confusion at her facility [facility]. Septic shock present on arrival: Hypotensive, tachycardic with neutrophil predominant leukocytosis, elevated procalcitonin. - off pressors 24+ hrs, BP 119/78 Pathology: - MRSA nares: negative - Sacral ulcer cx: moderate gram+ bacilli - Urine cx: Klebsiella variicola, E. coli - blood cx no growth - peritoneal fluid: no growth Imaging: - CT chest: masslike consolidation 6x4.1x6cm in LLL; multiple distal airway mucous plugs in lower lobes; COPD - X-ray of RLE and LLE -> consider contrast-enhanced MRI to rule out osteomyelitis in RLE; LLE no acute change - CT abdomen: see impression under diagnostic findings - consider aspiration of ascitic fluid - Continue IVF - Monitor fluid status. Last presented with significant volume overload secondary to acute on chronic HFpEF requiring aggressive diuresis. - off pressors 24+ hrs - Continue broad spectrum antibiotics - Zosyn and Daptomycin. Patient did have Pseudomonas present in right ankle wound - Tylenol PRN - Zofran PRN (2) Acute UTI: Plan: urine cultures positive for Klebsiella variicola and E. coli - continue with IV zosyn and daptomycin as other sources of infection no ruled out (3) Bilateral pneumonia: Plan: CT chest: multifocal pneumonia mostly LLL and L perihilar upper lobe, COPD - continue IV Zosyn and Daptomycin - satting well on 2L NC (4) Altered mental status: Plan: GCS 6 -> 15 but has declined later in day on 09/12/24, continue assessing for changes in mental status - see CT Head results in diagnostic findings; consider brain MRI for further evaluation of hypodense areas (5) Cellulitis of left lower leg: Plan: shallow ulceration on heel and dorsal aspect of foot - continue IV Zosyn and daptomycin - Turn and position q2 hours - continue wound care - nutrition consultation (6) Sacral wound: Plan: Patient with Stage II sacral and thigh wounds, ulcerations present on LLE as well. - wound gram stain shows moderate gram+ bacilli, cultures pending - continue IV Zosyn and daptomycin - Turn and position q 2 hours - Wound care - Nutrition consultation (7) Acute hypoxemic respiratory failure: Plan: currently on 2L NC satting 98% (8) Persistent atrial fibrillation: Plan: Atrial fibrillation, on Eliquis anticoagulation and Amiodarone for rhythm control. Previously on metoprolol. -Continue Amiodarone -Continue Eliquis - per chart review, takes this daily rather than BID -TSH: 5.11, could be elevated as acute phase reactant (9) Hyperthyroidism: Plan: Patient previously on Methimazole which was held during last admission due to elevated TSH. - TSH 5.11, could be elevated as an acute phase reactant (10) Diabetes mellitus type 2 in obese: Plan: Blood sugar presently 114. Overall very well controlled - last HgbA1C on 08/01/24 = 5.7. Was previously on Januvia which was discontinued on last discharge. -Diet controlled -Daily BMP Plan PAD -Patient was on Plavix until 09/07 -Resume ASA 81mg po daily -Holding Atorvastatin for now while on Daptomycin F/E/N - LR at 100mL/hr x 2L, monitor electrolytes - check PO4 given poor oral intake, minced/moist diet as tolerated with aspiration precautions, oral hygiene q shift Ppx - Continue daily Eliquis Code - Full per discussion with patient and daughter at bedside -D-i-s-p-o- --- -M-I-C-U- -f-o-r- -i-s-[id number]-q-p-u-[id number]-d- -S-a-t-o-p-h-e-d- Admission and Anticipated Discharge Date Admission Date: September 11, 2024 Supervising Physician Co-Signing Physician Notes I personally examined the patient and verified sharma points of history and exam, discussed case, and agree with decision making and plan documented by Dr. Emmanuel. Patient on admission for septic shock, required pressors in ICU, antibiotics including Zosyn and daptomycin, and stress dose steroids. Patient has been downgraded now off pressors. Possible sources contributing to sepsis include multifocal pneumonia with masslike consolidation in left upper lobe, multiple open wounds including sacral ulcer, UTI with Klebsiella and E. coli. Blood cultures x2 [id number]. Head CT with possible NPH, possible infarcts, MRI recommended for further evaluation. Conversation with patient's daughter Sara over telephone today, reviewing with Sara that patient has decreased p.o. intake, at present is unable to take p.o. medications, with decreased urine output. We reviewed patient's current code status and at present Sara was not ready to make changes. Sara is open to comfort measures if her mother is not clinically improving, she would appreciate assistance from case management to possibly move her mother closer to where she lives in [place], [place] if able. Sara will speak with her sister and connect with medical team tomorrow to discuss next steps in patient's care. Subjective Patient was seen and evaluated at bedside in ICU, on 2L NC, appearing awake and alert with breakfast in front of her. Fully oriented to self (full name, ), place ([facility]), and t hayes of year. Denied being in any particular pain or discomfort. Unable to gauge whether she has been having bowel movements. Indwelling tena in place. Patient was not feeling hungry enough to try her eggs or oatmeal, but when asked to try taking a sip of one of her fluids, she reached her L arm to her orange juice, took a sip via straw, and placed it back on tray. Daughter Jennifer was not present at time of encounter, but when she saw pt later in the day pt was much more "out of it" compared to earlier. Daughter understanding that pt may continue to decline and is amenable to having a conversation with the hospitalist team about goals of care at this juncture, and wants to have her sister in on the call too. Patient is afebrile, not having cough or apparent shortness of breath. At time of encounter, pt denied headache, dizziness, nausea/vomiting, chest pain, SOB, abdominal pain, or leg pain. Review of Systems Review of Systems: per HPI Physical Exam Physical Exam: Constitutional: A&Ox4 at time of encounter HEENT: NC/AT, anicteric sclerae, EOM intact Cardiovascular: mildly tachycardic regular, +s1/s2, no m/r/g Respiratory: mild coarse breath sounds b/l to auscultation, fair air entry b/l, no wheeze/rales/rhonchi GI: abdomen mildly distended, hypoactive bowel sounds, abdomen tympanic to percussion; nontender to palpation MSK: 4/5 strength in b/l UE, 2/5 strength in b/l LE; dressings in place on RLE BKA stump and LLE foot; shallow ulceration of L foot dorsal surface and heel; stage II sacral ulcer Neuro: GCS 15 at time of encounter, no facial droop, speech intact Results & Data Results & Data Vital Signs (Past 12 Hours) Vital Signs Temp Pulse Pulse Resp BP BP Pulse Ox 09/12/24 06:09 119 H 18 125/82 87 L 09/12/24 05:00 36.8 C 105 H 17 111/78 96 09/12/24 04:15 106 H 17 129/92 96 09/12/24 04:00 103 H 13 118/78 95 09/12/24 03:00 36.6 C 106 H 15 124/89 93 09/12/24 02:00 112 H 17 132/89 09/12/24 01:00 106 H 15 116/83 93 09/12/24 00:00 36.9 C 113 H 16 113/73 97 09/12/24 00:00 111 H 09/11/24 23:00 113 H 16 123/75 97 09/11/24 22:00 36.7 C 106 H 19 123/75 100 09/11/24 21:00 36.9 C 109 H 18 125/77 100 09/11/24 20:00 36.9 C 105 H 14 111/74 100 09/11/24 19:40 09/11/24 19:00 36.8 C 113 H 17 125/72 100 09/11/24 19:00 125/72 O2 Del Method O2 Flow Rate 09/12/24 06:09 09/12/24 05:00 Nasal Cannula 2 09/12/24 04:15 09/12/24 04:00 09/12/24 03:00 Oxymask 2 09/12/24 02:00 09/12/24 01:00 09/12/24 00:00 Nasal Cannula 2 09/12/24 00:00 09/11/24 23:00 09/11/24 22:00 Nasal Cannula 2 09/11/24 21:00 Nasal Cannula 2 09/11/24 20:00 Nasal Cannula 2 09/11/24 19:40 Nasal Cannula 2 09/11/24 19:00 09/11/24 19:00 Laboratory Results Abnormal lab results 09/11/24 09/12/24 09/12/24 Range/Units 21:59 04:34 07:16 RBC 3.24 L (4.20-5.40) M/uL Hgb 8.9 L (12.0-16.0) g/dl Hct 30.1 L (37.0-47.0) % MCHC 29.6 L (32.0-36.0) g/dL RDW Std Deviation 73.7 H (36.4-46.3) fL RDW Coeff of Rasheed 21.7 H (11.5-14.5) % Potassium 3.3 L D (3.5-5.1) mmol/L Creatinine 0.33 L D (0.6-1.2) mg/dl BUN/Creatinine Ratio 39.4 H (10-20) Glucose 114 H (70-99(Fasting)) mg/dl POC Glucose 126 H 123 H (70-99) mg/dl Calcium 8.1 L (8.6-10.3) mg/dl Total Protein 5.7 L (6.0-8.3) gm/dl Albumin 2.9 L (3.4-5.0) gm/dl 09/12/24 09/12/24 Range/Units 11:03 15:26 RBC (4.20-5.40) M/uL Hgb (12.0-16.0) g/dl Hct (37.0-47.0) % MCHC (32.0-36.0) g/dL RDW Std Deviation (36.4-46.3) fL RDW Coeff of Rasheed (11.5-14.5) % Potassium (3.5-5.1) mmol/L Creatinine (0.6-1.2) mg/dl BUN/Creatinine Ratio (10-20) Glucose (70-99(Fasting)) mg/dl POC Glucose 211 H 156 H (70-99) mg/dl Calcium (8.6-10.3) mg/dl Total Protein (6.0-8.3) gm/dl Albumin (3.4-5.0) gm/dl Resident Activity Tracking Resident Involvement: Resident Care Provided Care Provided: [facility]
[2024-09-12] MEDS: MAGNESIUM SULFATE / D5W 1 GM/100 ML BAG IV SCH (06:39)
--- NOTE | 2024-09-12 07:31 | Critical Care Progress Note ---
Date of Service September 12, 2024 Assessment & Plan (1) Septic shock: Plan: Reason Critically Ill: 69-year-old female with past medical history significant for atrial fibrillation (anticoagulated on Eliquis), PVD, CAD, Pulmonary hypertension, diastolic heart failure, And recent admission where she was diagnosed with osteomyelitis of the right lower extremity and cellulitis of the left lower extremity. She underwent revascularization of the right iliac artery and debridement of bilateral lower extremities, however required right BKA, and was discharged to [facility]. She now presents from [facility] with increased confusion, and was sent to the emergency department where she was found to be hypotensive, with septic shock requiring vasopressor support. 24-hour events: Patient was weaned off vasopressor agents. She underwent diagnostic paracentesis with results noted below. Recommendations: Neuro -encephalopathy: Favor metabolic etiology given clinical improvement over 24 hours. Continue to follow clinically. On multiple medications causing encephalopathy including Zoloft, oxycodone, gabapentin. These have been held. May consider judiciously restarting. Patient's not complaining of pain so would hold off on any pain medications currently. Cardiac - Presumed septic shock. Multiple potential portals of entry. Adequately fluid resuscitated now off vasopressor agents. Holding antihypertensives. A-fib, anticoagulated with Eliquis. Continue amiodarone. Given her stable blood pressure, will start low-dose of beta-love and see how she responds. Respiratory - Hypoxemia with multifocal airspace opacities. Suspect pneumonia, possible aspiration. Continue to wean oxygen as tolerated. Pulmonary toilet as tolerated as well. Would do better with out of bed to chair as tolerated GI - Advancing diet as tolerated. Paracentesis consistent with portal hypertension. Diuretics as tolerated. RENAL/LYTES - Stop IV fluids once taking adequate p.o. Hypokalemia this morning. Replete orally. - Foleystrict I's and O's ENDO - Glycemic control per protocol. Relative adrenal insufficiency on replacement steroids. Would consider tapering over the next 5 to 7 days to off. HEME - Mild anemia. No evidence of acute blood loss. No indication for transfusion currently. ID - Sepsismultiple potential sources at this time with underlying UTI, possible pneumonia, and cannot rule out Soft tissue/osteo from previous wounds currently day #2 Zosyn daptomycin. Seems reasonable to continue empirically now given her multiple portals of potential infectious entry. Cultures negative to date. LINES/IV ACCESS - Peripheral IVs DVT PROPHYLAXIS - Lynn Olmstead Patient is significantly improved at this point in time. Her critical care issues are resolved. She can transfer to the floor under the care of the the orthopedic specialty hospitalist and critical care services will sign off. Feel free to contact us with questions or concerns (2) Acute UTI: (3) Bilateral pneumonia: (4) Sacral wound: (5) Cellulitis of left lower leg: (6) Acute hypoxemic respiratory failure: (7) Persistent atrial fibrillation: Admission and Anticipated Discharge Date Admission Date: September 11, 2024 Subjective Patient seen and examined. EMR reviewed. Discussed with overnight critical care RAYMOND as well as with bedside critical care nurse and on multidisciplinary rounds. The patient is improved today. Her sensorium is cleared. She is able to answer questions appropriately. She has been hemodynamically stable and off vasopressor agents for more than 24 hours. She is stable on 2 to 3 L oxygen via nasal cannula. Review of Systems Review of Systems: All systems reviewed & are unremarkable except as noted in Subjective Physical Exam Constitutional: + frail appearing; no acute distress Eyes: PERRL, conjunctivae normal, anicteric sclerae ENMT: external ear and nose normal, oropharynx normal Neck: trachea midline, no thyromegaly Respiratory: normal respiratory effort, lungs clear to auscultation Cardiovascular: Rate/Rhythm: + tachycardic and + irregularly irregular Heart Sounds: no murmur Extremities: no edema Gastrointestinal (Abdomen): Abdomen less tender to palpation, bowel sounds present. Paracentesis site clean dry and intact. Musculoskeletal: Right lower extremity BKA Skin: Superficial sacral ulcer, wound to the left anterior portion of the foot, Right BKA appears well-approximated without purulent drainage or significant erythema Neurologic: Sensorium cleared today. Nonfocal exam Genitourinary: Indwelling Gould catheter present. Urine yellow, concentrated Results & Data Results & Data Vital Signs (Past 12 Hours) Vital Signs Temp Pulse Pulse Resp BP BP Pulse Ox 09/12/24 06:09 119 H 18 125/82 87 L 09/12/24 05:00 36.8 C 105 H 17 111/78 96 09/12/24 04:15 106 H 17 129/92 96 09/12/24 04:00 103 H 13 118/78 95 09/12/24 03:00 36.6 C 106 H 15 124/89 93 09/12/24 02:00 112 H 17 132/89 09/12/24 01:00 106 H 15 116/83 93 09/12/24 00:00 36.9 C 113 H 16 113/73 97 09/12/24 00:00 111 H 09/11/24 23:00 113 H 16 123/75 97 09/11/24 22:00 36.7 C 106 H 19 123/75 100 09/11/24 21:00 36.9 C 109 H 18 125/77 100 09/11/24 20:00 36.9 C 105 H 14 111/74 100 09/11/24 19:40 O2 Del Method O2 Flow Rate 09/12/24 06:09 09/12/24 05:00 Nasal Cannula 2 09/12/24 04:15 09/12/24 04:00 09/12/24 03:00 Oxymask 2 09/12/24 02:00 09/12/24 01:00 09/12/24 00:00 Nasal Cannula 2 09/12/24 00:00 09/11/24 23:00 09/11/24 22:00 Nasal Cannula 2 09/11/24 21:00 Nasal Cannula 2 09/11/24 20:00 Nasal Cannula 2 09/11/24 19:40 Nasal Cannula 2 Laboratory Results Paracentesis studies: Differential 10% neutrophils, 1% lymphocytes, 89% mesothelial cells White blood cells 32 Total protein 3.5 Albumin 1.6 SAAG 1.3 Gram stain negative, culture pending Critical Care Results & Data Vital Signs (Past 12 Hours) Vital Signs Temp Pulse Pulse Resp BP BP Pulse Ox 09/12/24 06:09 119 H 18 125/82 87 L 09/12/24 05:00 36.8 C 105 H 17 111/78 96 09/12/24 04:15 106 H 17 129/92 96 09/12/24 04:00 103 H 13 118/78 95 09/12/24 03:00 36.6 C 106 H 15 124/89 93 09/12/24 02:00 112 H 17 132/89 09/12/24 01:00 106 H 15 116/83 93 09/12/24 00:00 36.9 C 113 H 16 113/73 97 09/12/24 00:00 111 H 09/11/24 23:00 113 H 16 123/75 97 09/11/24 22:00 36.7 C 106 H 19 123/75 100 09/11/24 21:00 36.9 C 109 H 18 125/77 100 09/11/24 20:00 36.9 C 105 H 14 111/74 100 09/11/24 19:40 O2 Del Method O2 Flow Rate 09/12/24 06:09 09/12/24 05:00 Nasal Cannula 2 09/12/24 04:15 09/12/24 04:00 09/12/24 03:00 Oxymask 2 09/12/24 02:00 09/12/24 01:00 09/12/24 00:00 Nasal Cannula 2 09/12/24 00:00 09/11/24 23:00 09/11/24 22:00 Nasal Cannula 2 09/11/24 21:00 Nasal Cannula 2 09/11/24 20:00 Nasal Cannula 2 09/11/24 19:40 Nasal Cannula 2 Lab & Micro Results (Past 24 Hours) RBC 3.24 M/uL (4.20-5.40) L 09/12/24 WBC 9.69 K/ul (4.8-10.8) 09/12/24 Hgb 8.9 g/dl (12.0-16.0) L 09/12/24 Hct 30.1 % (37.0-47.0) L 09/12/24 MCV 92.9 fL (80.0-100.0) 09/12/24 MCH 27.5 pg (25.0-34.0) 09/12/24 MCHC 29.6 g/dL (32.0-36.0) L 09/12/24 RDW Standard Deviation 73.7 fL (36.4-46.3) H 09/12/24 RDW Coefficient of Variation 21.7 % (11.5-14.5) H 09/12/24 Plt Count 217 K/uL (130-400) 09/12/24 MPV 11.3 fL (9.4-12.4) 09/12/24 Na 142 mmol/L (136-145) 09/12/24 K 3.3 mmol/L (3.5-5.1) L 09/12/24 Cl 107 mmol/L (98-107) 09/12/24 CO2 27 mmol/L (21-32) 09/12/24 Anion Gap 8 (3-11) 09/12/24 BUN 13 mg/dl (6-23) 09/12/24 Creatinine 0.33 mg/dl (0.6-1.2) L 09/12/24 BUN/Creatinine Ratio 39.4 (10-20) H 09/12/24 Glu 114 mg/dl (70-99(Fasting)) H 09/12/24 Ca 8.1 mg/dl (8.6-10.3) L 09/12/24 Phosphorus Level 2.5 mg/dl (2.5-4.9) 09/12/24 Total Bilirubin 0.7 mg/dl (0.2-1.0) 09/12/24 Direct Bilirubin 0.2 mg/dl (0-0.2) 09/12/24 AST 26 U/L (13-39) 09/12/24 ALT 18 U/L (7-52) 09/12/24 Alkaline Phosphatase 101 U/L (34-104) 09/12/24 TP 5.7 gm/dl (6.0-8.3) L 09/12/24 Albumin 2.9 gm/dl (3.4-5.0) L 09/12/24 Mg 1.7 mg/dl (1.7-2.4) 09/12/24 04:34 Calcium Level 8.1 mg/dl (8.6-10.3) L 09/12/24 04:34 Microbiology 09/11/24 00:40 Aerobic Blood Culture - Preliminary Blood No growth in Aerobic bottle after 24 hours. Anaerobic Blood Culture - Preliminary No growth in Anaerobic bottle after 24 hours. 09/11/24 00:46 Aerobic Blood Culture - Preliminary Blood No growth in Aerobic bottle after 24 hours. Anaerobic Blood Culture - Preliminary No growth in Anaerobic bottle after 24 hours. 09/11/24 10:20 Gram Stain - Final Peritoneal Fluid 09/11/24 00:58 Gram Stain - Final Sacrum Diagnostic Findings (Past 24 Hours) Chest CT 09/11/24 06:06 EXAM: CT Chest Without Intravenous Contrast INDICATION: Sepsis. Pain. TECHNIQUE: Axial computed tomography images of the chest without intravenous contrast. Sagittal and coronal reformatted images were created and reviewed. This CT exam was performed using one or more of the following dose reduction techniques: automated exposure control, adjustment of the mA and/or kV according to patient size, and/or use of iterative reconstruction technique. COMPARISON: Chest x-ray the same day FINDINGS: Limitations: None. Lungs and pleural spaces: There are multifocal groundglass and consolidative infiltrates most significant in the left lower lobe and left perihilar upper lobe. Masslike consolidation in the left lower lobe measures 6.0 x 4.1 x 6.0 cm. Multiple distal airway mucous plugs noted in the lower lobes. No pneumothorax. Centrilobular emphysematous changes noted without dominant bulla or bleb. No bronchiectasis. Heart: No abnormality noted. Thyroid: Bilateral dense thyroid calcifications noted. No further assessment required. Bones/joints: Degenerative changes noted throughout the spine. No acute osseous abnormality seen. Soft tissues: No significant abnormality noted. Vasculature: See below. Lymph nodes: Enlarged 1.2 cm short axis dimension precarinal lymph node identified. Smaller nodes in the paratracheal and lateral aortic compartment. Hilar adenopathy not excluded. Liver: The liver is dense. Smooth contour. Gallbladder and bile ducts: Dilated possibly inflamed gallbladder. IMPRESSION: 1. Multifocal pneumonia most significant in the left lower lobe and left perihilar upper lobe. Follow-up until resolution needed to exclude underlying mass. 2. COPD. 3. Dilated gallbladder possibly inflamed. 4. Dense liver. Diagnostic considerations include but are not limited to effects of certain cardiac medications and hemochromatosis. ACT 112: Negative or not required by law. Electronically signed by Barbara Moscoso 09-11-2024 08:24 AM I & O Totals 24 Hours 09/11/24 09/12/24 09/13/24 06:59 06:59 06:59 Intake Total 2112.2 / 2112.2 2430.448 / 2430.448 Output Total 325 / 325 2960 / 2960 Balance 1787.2 / 1787.2 -529.552 / -529.552 Cumulative 09/11/24 00:19 thru 09/12/24 06:00 Intake Total 4542.648 Output Total 3285 Balance 1257.648 RT Ventilator Mngmt (Last Documented) Ventilator Ordered Settings Respiratory Rate 18 09/12/24 06:09 Ventilator - PT Measurements Respiratory Rate 18 Coding Level of Care Code 49638 SUB INP/OBS CARE 3/50MIN Diagnoses Septic shock A41.9; R65.21 Acute UTI N39.0 Bilateral pneumonia J18.9 Sacral wound S31.000A Cellulitis of left lower leg L03.116 Acute hypoxemic respiratory failure J96.01 Persistent atrial fibrillation I48.19
[2024-09-12] MEDS: METOPROLOL TARTRATE 25 MG TAB PO SCH (09:14)
[2024-09-12] MEDS ORDERED: SODIUM PHOSPHATE 3 MMOL/1 ML INFUSION IV STA (10:36)
[2024-09-12] MEDS ORDERED: POT PHOSPHATE MONOBASIC W/ SOD TAB PO SCH (10:45)
[2024-09-12] MEDS: POTASSIUM CHLORIDE / WTR 10 MEQ/100 ML PLCT IV SCH (10:52)
[2024-09-12] MEDS ORDERED: GLUCAGON FOR INJ 1 MG VIAL SQ PRN (11:06)
[2024-09-12] MEDS ORDERED: GLUCOSE 40% GEL 15 GM TUBE PO PRN (11:06)
[2024-09-12] MEDS ORDERED: GLUCOSE 10 TAB/TUBE PO PRN (11:06)
[2024-09-12] MEDS: SODIUM PHOSPHATE 9 MMOL in SODIUM CHLORIDE 0.9% 250 ML IV ONE (11:09)
[2024-09-12] MEDS: INSULIN ASPART PER UNIT CHARGE SC SCH (11:51)
[2024-09-12] MEDS: LACTATED RINGER'S 1,000 ML IV SCH (17:26)
[2024-09-12 21:57] LABS: BUN Creatinine Ratio 33.3 (10-20); Creatinine Clr Calc Pharmacy 142.9 ml/min; Potassium 4.3 mmol/L (3.5-5.1)
--- NOTE | 2024-09-13 06:43 | Hospitalist Progress Note ---
Date of Service September 13, 2024 Assessment & Plan (1) Septic shock: Plan: 69yo female with history of right BKA due to osteomyelitis in the last month, PVD, PAF on Eliquis, COPD on 2L O2 at baseline and HFpEF presenting with one week of progressive confusion at her facility [facility]. Septic shock present on arrival: Hypotensive, tachycardic with neutrophil predominant leukocytosis, elevated procalcitonin. - off pressors 48+ hrs, BP 120/91 - switched from PO metoprolol to IV due to poor PO intake - stepwise weaning off stress-dose steroid Pathology: - MRSA nares: negative - Sacral ulcer cx: moderate gram+ bacilli - Urine cx: Klebsiella variicola, E. coli - blood cx no growth - peritoneal/ascitic fluid: negative for growth, negative for malignancy Imaging: - CT chest: masslike consolidation 6x4.1x6cm in LLL; multiple distal airway mucous plugs in lower lobes; COPD - CT abdomen: see impression under diagnostic findings - Continue IVF - Monitor fluid status. Last presented with significant volume overload secondary to acute on chronic HFpEF requiring aggressive diuresis. - off pressors 48+ hrs - Continue broad spectrum antibiotics - Zosyn, consider discontinuing Daptomycin. Patient did have Pseudomonas present in right ankle wound; oral vanco for C. diff prophylaxis - Tylenol PRN - Zofran PRN (2) Acute UTI: Plan: urine cultures positive for Klebsiella variicola and E. coli - continue with IV zosyn, consider d/c of daptomycin - oral vanco for C. diff prophylaxis (3) Bilateral pneumonia: Plan: CT chest: multifocal pneumonia mostly LLL and L perihilar upper lobe, COPD - continue IV Zosyn, consider d/c daptomycin - satting well on 2L NC (4) Altered mental status: Plan: waxing and waning, mainly surface-level conversations with up to 5 word responses at best; continue assessing for changes in mental status - see CT Head results in diagnostic findings; consider brain MRI for further evaluation of hypodense areas (5) Cellulitis of left lower leg: Plan: shallow ulceration on heel and dorsal aspect of foot - continue IV Zosyn and daptomycin - Turn and position q2 hours - continue wound care - nutrition consultation (6) Sacral wound: Plan: Patient with Stage II sacral and thigh wounds, ulcerations present on LLE as well. - wound gram stain shows moderate gram+ bacilli, cultures pending - continue IV Zosyn and daptomycin - Turn and position q 2 hours - Wound care - Nutrition consultation (7) Acute hypoxemic respiratory failure: Plan: currently on 2L NC satting 100% (8) Persistent atrial fibrillation: Plan: Atrial fibrillation, on Eliquis anticoagulation and Amiodarone for rhythm control. Previously on metoprolol. -Continue Amiodarone -Continue Eliquis - per chart review, takes this daily rather than BID -TSH: 5.11, could be elevated as acute phase reactant (9) Hyperthyroidism: Plan: Patient previously on Methimazole which was held during last admission due to elevated TSH. - TSH 5.11, could be elevated as an acute phase reactant (10) Diabetes mellitus type 2 in obese: Plan: Blood sugar presently 114. Overall very well controlled - last HgbA1C on 08/01/24 = 5.7. Was previously on Januvia which was discontinued on last discharge. -Diet controlled -Daily BMP Plan To have conversation with patient, daughter Jennifer, and any other family members regarding next steps of care, likely moving from current assisted living fac ility to a more intensive one such as a SNF. PAD -Patient was on Plavix until 09/07 -Resume ASA 81mg po daily -Holding Atorvastatin for now while on Daptomycin F/E/N - LR at 100mL/hr x 2L, monitor electrolytes - check PO4 given poor oral intake, minced/moist diet as tolerated with aspiration precautions, oral hygiene q shift Ppx - Continue daily Eliquis Code - Full per discussion with patient and daughter at bedside Dispo - downgrade to PCU/tele Admission and Anticipated Discharge Date Admission Date: September 11, 2024 Supervising Physician Co-Signing Physician Notes I personally examined the patient and verified all sharma points of history and exam, discussed case, and agree with decision making with Dr Emmanuel no acute complaints. appears pleasantly confused. denies pain or sob. d/w nursing - has been refusing food and meds some, but also confused some. vitals noted nad heent nc at mmm pleasantly confused nad heent nc at mmm breathing unlabored no accessory muscles good effort skin no rashes no pallor or icterus neuro no focal deficits sepsis/septic shock - source not entirely clear, with lung/urinary/skin all being possible. continue broad abx and supportive care, serial exams/labs/follow cultures. delirium/metabolic encephalopathy makes elucidating cause more difficult and probably compounds what appears to be a deconditioning/malnutrition cycle as well. continue to follow closely. case management/family to work on placement afib - tachycardia seems to be more due to RVR than reflex tachycardia from sepsis or volume depletion at this point - has not been taking PO meds, continue to follow, continue metoprolol anticoagulated PO vanco for Cdiff proph since recent carrier and in hospitals/SNFs as well as currently on broad abx otherwise as above Subjective Patient was seen and evaluated at bedside in ICU, on 2L NC, appearing awake and alert with breakfast in front of her. Fully oriented to self (full name, ), place ([facility]), and time of year. Denied being in any particular pain or discomfort. Denies having any recent bowel movements. Indwelling tena in place. Patient was able to sweet pickle maker and take a sip of her water slowly but without issue, was not hungry enough to eat solid food. Daughter not present at time of encounter but desires to have a discussion regarding next steps of care for patient. Patient is afebrile, not having cough or apparent shortness of breath. At time of encounter, pt denied headache, dizziness, nausea/vomiting, chest pain, SOB, abdominal pain, or leg pain. Review of Systems Review of Systems: per HPI Physical Exam Physical Exam: Constitutional: A&Ox4 at time of encounter HEENT: NC/AT, anicteric sclerae, EOM intact Cardiovascular: mildly tachycardic regular, +s1/s2, no m/r/g Respiratory: mild coarse breath sounds b/l to auscultation, fair air entry b/l, no wheeze/rales/rhonchi GI: abdomen mildly distended, hypoactive bowel sounds, abdomen tympanic to percussion; nontender to palpation MSK: 4/5 strength in b/l UE, 2/5 strength in b/l LE; dressings in place on RLE BKA stump and LLE foot; shallow ulceration of L foot dorsal surface and heel; stage II sacral ulcer Neuro: no facial droop, speech intact Results & Data Results & Data Vital Signs (Past 12 Hours) Vital Signs Temp Pulse Pulse Resp BP BP Pulse Ox 09/13/24 04:00 111 H 124/90 09/13/24 03:11 36.6 C 111 H 18 104/74 100 09/13/24 00:00 100 H 12 96/73 L 99 09/12/24 23:57 101 H 09/12/24 21:00 09/12/24 20:00 37.2 C 114 H 14 125/86 100 O2 Del Method O2 Flow Rate 09/13/24 04:00 09/13/24 03:11 Nasal Cannula 2 09/13/24 00:00 09/12/24 23:57 09/12/24 21:00 Nasal Cannula 2 09/12/24 20:00 Nasal Cannula 2 Laboratory Results Abnormal lab results 09/12/24 09/12/24 09/13/24 Range/Units 20:52 21:20 08:11 WBC 11.19 H (4.8-10.8) K/ul RBC 3.40 L (4.20-5.40) M/uL Hgb 9.2 L (12.0-16.0) g/dl Hct 31.6 L (37.0-47.0) % MCHC 29.1 L (32.0-36.0) g/dL RDW Std Deviation 72.1 H (36.4-46.3) fL RDW Coeff of Rasheed 21.4 H (11.5-14.5) % Neut # (Auto) 10.38 H (1.40-6.50) K/uL Lymph # (Auto) 0.36 L (1.20-3.40) K/uL Creatinine 0.33 L 0.29 L (0.6-1.2) mg/dl BUN/Creatinine Ratio 33.3 H 37.9 H (10-20) Glucose 145 H 121 H (70-99(Fasting)) mg/dl POC Glucose 141 H (70-99) mg/dl Calcium 8.0 L 7.9 L (8.6-10.3) mg/dl 09/13/24 09/13/24 09/13/24 Range/Units 09:03 12:25 17:06 WBC (4.8-10.8) K/ul RBC (4.20-5.40) M/uL Hgb (12.0-16.0) g/dl Hct (37.0-47.0) % MCHC (32.0-36.0) g/dL RDW Std Deviation (36.4-46.3) fL RDW Coeff of Rasheed (11.5-14.5) % Neut # (Auto) (1.40-6.50) K/uL Lymph # (Auto) (1.20-3.40) K/uL Creatinine (0.6-1.2) mg/dl BUN/Creatinine Ratio (10-20) Glucose (70-99(Fasting)) mg/dl POC Glucose 114 H 110 H 124 H (70-99) mg/dl Calcium (8.6-10.3) mg/dl Resident Activity Tracking Resident Involvement: Resident Care Provided Care Provided: Adult Hospital Medicine
[2024-09-13 08:28] LABS: Hematocrit (blood only) 31.6 % (37.0-47.0); Hemoglobin 9.2 g/dl (12.0-16.0); Mean Corpuscular Hemoglobin 27.1 pg (25.0-34.0); Mean Corpuscular Hgb Conc 29.1 g/dL (32.0-36.0); Mean Corpuscular Volume 92.9 fL (80.0-100.0); Platelet Count 221 K/uL (130-400); RDW Coefficient of Variation 21.4 % (11.5-14.5); RDW Standard Deviation 72.1 fL (36.4-46.3); White Blood Count 11.19 K/ul (4.8-10.8)
[2024-09-13 08:45] LABS: BUN Creatinine Ratio 37.9 (10-20); Calcium 7.9 mg/dl (8.6-10.3); Creatinine Clr Calc Pharmacy 162.6 ml/min; Potassium 4.1 mmol/L (3.5-5.1)
[2024-09-13 08:54] LABS: Anisocytosis Present; Basophils # (auto) 0.03 K/uL (0.00-0.20); Basophils % (auto) 0.3 %; Immature Granulocytes % (auto) 0.9 %; Lymphocytes # (auto) 0.36 K/uL (1.20-3.40); Lymphocytes % (auto) 3.2 %; Monocytes # (auto) 0.32 K/uL (0.11-0.59); Monocytes % (auto) 2.9 %; Neutrophils # (auto) 10.38 K/uL (1.40-6.50); Neutrophils % (auto) 92.7 %
[2024-09-13] MEDS: CHERRY SYRUP 5 ML UDP PO SCH (10:02)
[2024-09-13] MEDS: VANCOMYCIN HCL 125 MG/2.5ML SOLN PO SCH (10:04)
[2024-09-13] MEDS: PIPERACILLIN/TAZOBACTAM 4.5 GM/100 ML BAG IV SCH (14:43)
[2024-09-13] MEDS: METOPROLOL TARTRATE 1 MG/ML VIAL IV SCH (15:36)
--- NOTE | 2024-09-13 16:28 | Billing Data ---
Date of Service September 13, 2024 Coding Level of Care Code 22135 SUB INP/OBS CARE
[2024-09-14] MEDS: ACETAMINOPHEN 325 MG TAB PO PRN (00:33)
[2024-09-14 06:19] LABS: Hematocrit (blood only) 31.7 % (37.0-47.0); Hemoglobin 9.6 g/dl (12.0-16.0); Mean Corpuscular Hemoglobin 27.8 pg (25.0-34.0); Mean Corpuscular Hgb Conc 30.3 g/dL (32.0-36.0); Mean Corpuscular Volume 91.9 fL (80.0-100.0); Mean Platelet Volume 11.8 fL (9.4-12.4); Platelet Count 266 K/uL (130-400); RDW Coefficient of Variation 21.2 % (11.5-14.5); Red Blood Count 3.45 M/uL (4.20-5.40); White Blood Count 11.41 K/ul (4.8-10.8)
[2024-09-14 06:31] LABS: BUN Creatinine Ratio 33.3 (10-20); Creatinine Clr Calc Pharmacy 130.9 ml/min; Potassium 3.8 mmol/L (3.5-5.1)
--- NOTE | 2024-09-14 06:50 | Hospitalist Progress Note ---
Date of Service September 14, 2024 Assessment & Plan (1) Septic shock: Plan: 69yo female with history of right BKA due to osteomyelitis in the last month, PVD, PAF on Eliquis, COPD on 2L O2 at baseline and HFpEF presenting with one week of progressive confusion at her facility [facility]. Septic shock present on arrival: Hypotensive, tachycardic with neutrophil predominant leukocytosis, elevated procalcitonin. Off pressors 72+ hrs, BP 109/70, HR 119 Meds: - Continue broad spectrum antibiotics - Zosyn, discontinuing Daptomycin. Patient did have Pseudomonas present in right ankle wound; oral vanco for C. diff prophylaxis - switched from PO metoprolol to IV due to poor PO intake: metoprolol tartrate 5mg q6h - stepwise weaning off stress-dose steroid Pathology: - MRSA nares: negative - Sacral ulcer cx: moderate gram+ bacilli - Urine cx: Klebsiella variicola, E. coli - blood cx no growth - peritoneal/ascitic fluid: negative for growth, negative for malignancy Imaging: - CT chest: masslike consolidation 6x4.1x6cm in LLL; multiple distal airway mucous plugs in lower lobes; COPD - CT abdomen: see impression under diagnostic findings - Continue IVF, 500cc bolus for current volume-depleted status - monitor fluid status. Last presented with significant volume overload secondary to acute on chronic HFpEF requiring aggressive diuresis. - Tylenol PRN - Zofran PRN (2) Acute UTI: Plan: urine cultures positive for Klebsiella variicola and E. coli - continue IV zosyn for unidentified source of infection, d/c of daptomycin due to low MRSA likelihood - oral vanco for C. diff prophylaxis (3) Bilateral pneumonia: Plan: CT chest: multifocal pneumonia mostly LLL and L perihilar upper lobe, COPD - continue IV Zosyn, d/c daptomycin as nares negative for MRSA - satting well on 2L NC (4) Altered mental status: Plan: waxing and waning, mainly surface-level conversations with up to 5 word responses at best; continue assessing for changes in mental status - see CT Head results in diagnostic findings; consider brain MRI for further evaluation of hypodense areas (5) Cellulitis of left lower leg: Plan: continuing IV Zosyn, d/c daptomycin for low MRSA likelihood - Turn and position q2 hours - continue wound care - nutrition consultation (6) Pressure ulcers of skin of multiple topographic sites: Plan: Stage II ulcers on sacral region, R posterior upper thigh, L heel - sacral wound gram stain shows moderate gram+ bacilli, moderate counts of probable mixed skin microbiota, classification and sensitivities pending - continuing IV Zosyn, d/c daptomycin - Turn and position q 2 hours - Wound care - Nutrition consultation (7) Tachycardia: Plan: acute, currently 115, has been mainly 110s-130s for the past day 09/13/24 to morning of 09/14/24 - likely a result of - increased metoprolol tartrate to 5mg q6h - ordered 500cc plasmalyte bolus followed by LR+D5 maintenance fluids at 80cc/hr (8) Acute hypoxemic respiratory failure: Plan: currently on 2L NC satting 98% (9) Persistent atrial fibrillation: Plan: Atrial fibrillation, on Eliquis anticoagulation and Amiodarone for rhythm contr ol. Previously on metoprolol. -Continue Amiodarone -Continue Eliquis - per chart review, takes this daily rather than BID -TSH: 5.11, could be elevated as acute phase reactant (10) Hyperthyroidism: Plan: Patient previously on Methimazole which was held during last admission due to elevated TSH. - TSH 5.11, could be elevated as an acute phase reactant (11) Diabetes mellitus type 2 in obese: Plan: Blood sugar presently 114. Overall very well controlled - last HgbA1C on 08/01/24 = 5.7. Was previously on Januvia which was discontinued on last discharge. -Diet controlled -Daily BMP Plan To have conversation with patient, daughter Jennifer, and any other family members regarding next steps of care, likely moving from current assisted living facility to a more intensive one such as a SNF. PAD -Patient was on Plavix until 09/07 -Resume ASA 81mg po daily -Holding Atorvastatin for now while on Daptomycin F/E/N - LR at 100mL/hr x 2L, monitor electrolytes - check PO4 given poor oral intake, minced/moist diet as tolerated with aspiration precautions, oral hygiene q shift Ppx - Continue daily Eliquis Code - Full per discussion with patient and daughter at bedside Dispo - downgrade to PCU/tele Admission and Anticipated Discharge Date Admission Date: September 11, 2024 Supervising Physician Co-Signing Physician Notes I personally examined the patient and verified all sharma points of history and exam, discussed case, and agree with decision making with Dr Emmanuel Discussed with nursing. No new issues, but also still not eating very well. vitals noted nad heent nc at mmm pleasantly confused nad breathing unlabored no accessory muscles good effort skin no rashes no pallor or icterus neuro no focal deficits sepsis/septic shock - source not entirely clear, with lung/urinary/skin all being possible, although skin least likely. continue broad abx (But with skin far less likely to be culprit, and MRSA nares being negative okay to allow daptomycin to lapse)and supportive care, serial exams/labs/follow cultures. delirium/metabolic encephalopathy makes elucidating cause more difficult and probably compounds what appears to be a deconditioning/malnutrition cycle as well. continue to follow closely. case management/family to work on placement. Encourage p.o. intake. Continue supportive care. anticoagulated PO vanco for Cdiff proph since recent carrier and in hospitals/SNFs as well as currently on broad abx otherwise as above Subjective Patient was seen and evaluated at bedside no telemetry floor, on 2L NC, appearing awake and alert with breakfast in front of her. Oriented to self (full name, ), place ([facility]), but did not provide response for month of year. Endorses some pain on her bottom, but otherwise denies any pain or discomfort. Does not recall when last bowel movement was. Indwelling tena in place showing 150cc concentrated urine. Was asked to try taking a sip of her [place] drink but did not do so during encounter. Also not interested in eating her solid food. Daughter not present at time of encounter but desires to have a discussion regarding next steps of care for patient, which may be sometime today or this week. Patient is afebrile, not having cough or apparent shortness of breath. At time of encounter, pt denied headache, dizziness, nausea/vomiting, chest pain, SOB, abdominal pain. Review of Systems Review of Systems: per HPI Physical Exam Physical Exam: Constitutional: A&Ox3 at time of encounter, in no apparent distress HEENT: NC/AT, anicteric sclerae, EOM intact Cardiovascular: tachycardic regular, +s1/s2, no m/r/g Respiratory: mild coarse breath sounds b/l to auscultation, fair air entry b/l, no wheeze/rales/rhonchi GI: abdomen mildly distended, hypoactive bowel sounds, abdomen tympanic to percussion; nontender to palpation MSK: 4/5 strength in b/l UE, 2/5 strength in b/l LE; dressings in place on RLE BKA stump and LLE foot; shallow ulceration of L foot dorsal surface and heel; stage II sacral ulcer 2x5cm, 2 other small [id number] stage II pressure ulcers on sacral/ upper buttock area and one on posterior upper R thigh Neuro: no facial droop, speech intact, intermittent eye contact, most responses slow Results & Data Results & Data Vital Signs (Past 12 Hours) Vital Signs Temp Pulse Pulse Pulse Resp BP BP 09/14/24 06:11 134 H 130/72 09/14/24 05:25 134 H 130/72 09/14/24 03:29 09/14/24 03:29 134 H 09/14/24 03:18 36.5 C 127 H 21 103/72 09/14/24 00:25 123 H 117/81 09/13/24 23:07 36.4 C L 134 H 19 113/79 09/13/24 20:00 36.4 C L 133 H 16 126/89 09/13/24 19:35 Pulse Ox O2 Del Method O2 Flow Rate 09/14/24 06:11 09/14/24 05:25 09/14/24 03:29 Nasal Cannula 2 09/14/24 03:29 09/14/24 03:18 91 Nasal Cannula 2 09/14/24 00:25 09/13/24 23:07 99 Nasal Cannula 2 09/13/24 20:00 100 Nasal Cannula 2 09/13/24 19:35 Nasal Cannula 2 Laboratory Results Abnormal lab results 09/13/24 09/13/24 09/13/24 Range/Units 12:25 17:06 21:08 WBC (4.8-10.8) K/ul RBC (4.20-5.40) M/uL Hgb (12.0-16.0) g/dl Hct (37.0-47.0) % MCHC (32.0-36.0) g/dL RDW Std Deviation (36.4-46.3) fL RDW Coeff of Rasheed (11.5-14.5) % Creatinine (0.6-1.2) mg/dl BUN/Creatinine Ratio (10-20) Glucose (70-99(Fasting)) mg/dl POC Glucose 110 H 124 H 130 H (70-99) mg/dl Calcium (8.6-10.3) mg/dl 09/13/24 09/14/24 09/14/24 Range/Units 23:44 05:40 08:08 WBC 11.41 H (4.8-10.8) K/ul RBC 3.45 L (4.20-5.40) M/uL Hgb 9.6 L (12.0-16.0) g/dl Hct 31.7 L (37.0-47.0) % MCHC 30.3 L (32.0-36.0) g/dL RDW Std Deviation 71.0 H (36.4-46.3) fL RDW Coeff of Rasheed 21.2 H (11.5-14.5) % Creatinine 0.36 L (0.6-1.2) mg/dl BUN/Creatinine Ratio 33.3 H (10-20) Glucose 137 H (70-99(Fasting)) mg/dl POC Glucose 130 H 134 H (70-99) mg/dl Calcium 8.0 L (8.6-10.3) mg/dl Resident Activity Tracking Resident Involvement: Resident Care Provided Care Provided: Adult [facility]
[2024-09-14] MEDS: HYDROCORTISONE SOD 50 MG in SYRINGE 0 ML IV SCH (08:27)
[2024-09-14] MEDS: D5W AND LACTATED RINGERS 1,000 ML IV SCH ×2 (16:12→16:35)
[2024-09-14] MEDS: PLASMA-LYTE A 500 ML IV ONE (16:35)
[2024-09-14] MEDS: METOPROLOL TARTRATE 1 MG/ML VIAL IV SCH (18:11)
--- NOTE | 2024-09-14 18:52 | Billing Data ---
Date of Service September 14, 2024 Coding Level of Care Code 17699 SUB INP/OBS CARE
--- NOTE | 2024-09-15 06:52 | Hospitalist Progress Note ---
Date of Service September 15, 2024 Assessment & Plan (1) Septic shock: Plan: 69yo female with history of right BKA due to osteomyelitis in the last month, PVD, PAF on Eliquis, COPD on 2L O2 at baseline and HFpEF presenting with one week of progressive confusion at her facility [facility]. Septic shock present on arrival: Hypotensive, tachycardic with neutrophil predominant leukocytosis, elevated procalcitonin. Off pressors, BP 109/70, HR 119 Meds: - switched from Zosyn to Ceftriaxone IV for suspected UTI etiology of sepsis, targeting Kelbsiella and E. coli - Oral vanco for C. diff prophylaxis - IV metoprolol tartrate 5mg q6h - d/c stress-dose steroid Pathology: - MRSA nares: negative - Sacral ulcer cx: moderate gram+ bacilli - Urine cx: Klebsiella variicola, E. coli - blood cx no growth - peritoneal/ascitic fluid: negative for growth, negative for malignancy Imaging: - CT chest: masslike consolidation 6x4.1x6cm in LLL; multiple distal airway mucous plugs in lower lobes; COPD - CT abdomen: see impression under diagnostic findings - Continue IVF - monitor fluid status. Last presented with significant volume overload secondary to acute on chronic HFpEF requiring aggressive diuresis. - Tylenol PRN - Zofran PRN (2) Acute UTI: Plan: urine cultures positive for Klebsiella variicola and E. coli - IV Ceftriaxone for suspected UTI etiology of sepsis - oral vanco for C. diff prophylaxis (3) Bilateral pneumonia: Plan: CT chest: multifocal pneumonia mostly LLL and L perihilar upper lobe, COPD - IV ceftriaxone primarily targeting suspected UTI cause of sepsis (see above) - satting well on 2L NC (4) Tachycardia: Plan: acute, currently 106 - metoprolol tartrate to 5mg q6h - maintenance IVF (5) Delirium: Plan: waxing and waning, mainly surface-level conversations with up to 5 word responses at best; continue assessing for changes in mental status (6) Pressure ulcers of skin of multiple topographic sites: Plan: Stage II ulcers on sacral region, R posterior upper thigh, L heel - sacral wound gram stain shows moderate gram+ bacilli, moderate counts of probable mixed skin microbiota, classification and sensitivities pending IV Ceftriaxone - Turn and position q 2 hours - Wound care - Nutrition consultation (7) Cellulitis of left lower leg: Plan: IV Ceftriaxone (see above) - Turn and position q2 hours - continue wound care - nutrition consultation (8) Persistent atrial fibrillation: Plan: Atrial fibrillation, on Eliquis anticoagulation and Amiodarone for rhythm control. Previously on metoprolol. -Continue Amiodarone -Continue Eliquis - per chart review, takes this daily rather than BID -TSH: 5.11, could be elevated as acute phase reactant (9) Acute hypoxemic respiratory failure: Plan: currently on 2L NC satting 98% (10) Hyperthyroidism: Plan: Patient previously on Methimazole which was held during last admission due to elevated TSH. - TSH 5.11, could be elevated as an acute phase reactant (11) Diabetes mellitus type 2 in obese: Plan: Blood sugar presently 114. Overall very well controlled - last HgbA1C on 08/01/24 = 5.7. Was previously on Januvia which was discontinued on last discharge. -Diet controlled -Daily BMP Plan To have conversation with patient, daughter Jennifer, and any other family members regarding next steps of care, likely moving from current assisted living facility to a more intensive one such as a SNF. PAD -Patient was on Plavix until 09/07 -Resume ASA 81mg po daily -Holding Atorvastatin for now while on Daptomycin F/E/N - LR at 100mL/hr x 2L, monitor electrolytes - check PO4 given poor oral intake, minced/moist diet as tolerated with aspiration precautions, oral hygiene q shift Ppx - Continue daily Eliquis Code - Full per discussion with patient and daughter at bedside Dispo - downgrade to PCU/tele Admission and Anticipated Discharge Date Admission Date: September 11, 2024 Supervising Physician Co-Signing Physician Notes I personally examined the patient and verified all sharma points of history and exam, discussed case, and agree with decision making with Dr Emmanuel seen twice todayfirst sleeping lying on her side appearing to be in no distress. Later awake confused a little bit obstinate but at least taking a few bites vitals noted nad heent nc at mmm pleasantly confused nad heent nc at mmm breathing unlabored no accessory muscles good effort skin no rashes no pallor or icterus neuro no focal deficits. Takes a few bites of food manipulates it in her mouth without any signs of difficulty or aspiration. sepsis/septic shock - source not entirely clear, with lung/urinary/skin all being possible. However, seems most consistent with UTI due to indwelling Gould catheter, rather than pressure ulcer of the left buttock stage III POA, pressure ulcer of right gluteal fold stage III POA, pressure ulcer of left medial sacrum likely stage III POA, pressure ulcer of left posterior heel likely stage III POA, pressure ulcer of left lateral foot, stage III POA, or pressure induced bilateral medial thigh deep tissue injurygiven that all of these appear like they need local wound care but do not really seem to have much of any serious cellulitis tracking from them. continue broad abx and supportive care, serial exams/labs/follow cultures. delirium/metabolic encephalopathy makes elucidating cause more difficult and probably compounds what appears to be a deconditioning/malnutrition cycle as well. continue to follow closely. case management/family to work on placement eating more today but still poorly, order desk clerk input ongoing afib - tachycardia seems to be more due to RVR than reflex tachycardia from sepsis or volume depletion at this point - had not been taking PO meds, continue to follow, continue metoprolol IV for now - but as she allows more PO intake, hopefully can transition back to PO rate control anticoagulated PO vanco for Cdiff proph since recent carrier and in hospitals/SNFs as well as currently on broad abx otherwise as above PT/OT eval and treat Subjective Patient was seen and evaluated at bedside no telemetry floor, on 2L NC, appearing awake and alert with breakfast in front of her. Oriented to self (full name, ), place ([facility]), and month of year (September). At this time denies any pain or discomfort. Denies having a recent bowel movement. Was asked to try taking a sip of her [place] drink or water but did not do so during encounter. Also not interested in eating her solid food. Daughter not present at time of encounter but desires to have a discussion regarding next steps of care for patient. Patient is afebrile, not having cough or apparent shortness of breath. At time of encounter, pt denied headache, dizziness, nausea/vomiting, chest pain, SOB, abdominal pain. Review of Systems Review of Systems: per HPI Physical Exam Physical Exam: Constitutional: A&Ox3 at time of encounter, in no apparent distress HEENT: NC/AT, anicteric sclerae, EOM intact Cardiovascular: tachycardic regular, +s1/s2, no m/r/g Respiratory: mild coarse breath sounds b/l to auscultation, fair air entry b/l, no wheeze/rales/rhonchi GI: abdomen mildly distended, hypoactive bowel sounds, abdomen tympanic to percussion; nontender to palpation MSK: 4/5 strength in b/l UE, 3/5 strength in b/l LE; dressings in place on RLE BKA stump and LLE foot; shallow ulceration of L foot dorsal surface and heel; stage II sacral ulcer 2x5cm, 2 other small [id number] stage II pressure ulcers on sacral/ upper buttock area and one on posterior upper R thigh Neuro: no facial droop, speech intact, intermittent eye contact, most responses slow - moves all extremities; follows instruc tions to put arms out in front of her, turn palm-side up, and bend elbows, performed approximately symmetrically Results & Data Results & Data Vital Signs (Past 12 Hours) Vital Signs Temp Pulse Pulse Resp BP BP Pulse Ox 09/15/24 06:03 93 H 119/84 09/15/24 03:36 36.5 C 93 H 20 119/84 91 09/15/24 01:39 94 H 09/15/24 01:24 122 H 120/86 09/14/24 23:57 36.8 C 122 H 16 120/86 92 09/14/24 20:27 16 95 09/14/24 19:45 09/14/24 19:31 36.4 C L 117 H 16 122/85 98 O2 Del Method O2 Flow Rate 09/15/24 06:03 09/15/24 03:36 Nasal Cannula 3 09/15/24 01:39 09/15/24 01:24 09/14/24 23:57 Nasal Cannula 2 09/14/24 20:27 Nasal Cannula 1 09/14/24 19:45 Nasal Cannula 2 09/14/24 19:31 Nasal Cannula 2 Resident Activity Tracking Resident Involvement: Resident Care Provided Care Provided: Adult Hospital Medicine
[2024-09-15 07:15] LABS: Hematocrit (blood only) 32.6 % (37.0-47.0); Hemoglobin 9.4 g/dl (12.0-16.0); Mean Corpuscular Hemoglobin 27.2 pg (25.0-34.0); Mean Corpuscular Hgb Conc 28.8 g/dL (32.0-36.0); Mean Corpuscular Volume 94.2 fL (80.0-100.0); Mean Platelet Volume 11.4 fL (9.4-12.4); Platelet Count 266 K/uL (130-400); RDW Coefficient of Variation 21.1 % (11.5-14.5); RDW Standard Deviation 72.2 fL (36.4-46.3); Red Blood Count 3.46 M/uL (4.20-5.40); White Blood Count 10.27 K/ul (4.8-10.8)
[2024-09-15 07:35] LABS: C Reactive Protein 4.38 mg/dl (0-0.5); Calcium 7.9 mg/dl (8.6-10.3); Creatinine Clr Calc Pharmacy 208.3 ml/min; Potassium 3.3 mmol/L (3.5-5.1)
[2024-09-15] MEDS: SODIUM CHLOR 0.45% + 20MEQ KCL 20 MEQ/1,000 ML BAG IV SCH (12:47)
[2024-09-15] MEDS: cefTRIAXone SODIUM 1,000 MG/50 ML BAG IV SCH (13:37)
--- NOTE | 2024-09-15 17:19 | Billing Data ---
Date of Service September 15, 2024 Coding Level of Care Code 33673 SUB INP/OBS CARE
--- NOTE | 2024-09-15 17:21 | Billing Data ---
Date of Service September 15, 2024 Coding Level of Care Code 17610 SUB INP/OBS CARE
--- NOTE | 2024-09-16 07:02 | Hospitalist Progress Note ---
Date of Service September 16, 2024 Assessment & Plan (1) Septic shock: Plan: 69yo female with history of right BKA due to osteomyelitis in the last month, PVD, PAF on Eliquis, COPD on 2L O2 at baseline and HFpEF presenting with one week of progressive confusion at her facility [facility]. Septic shock present on arrival: Hypotensive, tachycardic with neutrophil predominant leukocytosis, elevated procalcitonin. Off pressors, BP 142/97, HR 125 Meds: - switched from Zosyn to Ceftriaxone IV for suspected UTI etiology of sepsis, targeting Kelbsiella and E. coli - Oral vanco for C. diff prophylaxis - IV metoprolol tartrate 5mg q6h Pathology: - MRSA nares: negative - Sacral ulcer cx: moderate gram+ bacilli - Urine cx: Klebsiella variicola, E. coli - blood cx no growth - peritoneal/ascitic fluid: negative for growth, negative for malignancy Imaging: - CT chest: masslike consolidation 6x4.1x6cm in LLL; multiple distal airway mucous plugs in lower lobes; COPD - CT abdomen: see impression under diagnostic findings - Continue IVF - monitor fluid status. Last presented with significant volume overload secondary to acute on chronic HFpEF requiring aggressive diuresis. - Tylenol PRN - Zofran PRN (2) Acute UTI: Plan: urine cultures positive for Klebsiella variicola and E. coli - IV Ceftriaxone for suspected UTI etiology of sepsis - oral vanco for C. diff prophylaxis (3) Bilateral pneumonia: Plan: CT chest: multifocal pneumonia mostly LLL and L perihilar upper lobe, COPD - IV ceftriaxone primarily targeting suspected UTI cause of sepsis (see above) - satting well on 2L NC (4) Tachycardia: Plan: acute, currently 125 - metoprolol tartrate to 5mg q6h - maintenance IVF (5) Delirium: Plan: waxing and waning, mainly surface-level conversations with up to 5 word r esponses at best; continue assessing for changes in mental status (6) Pressure ulcers of skin of multiple topographic sites: Plan: Stage II-III ulcers on sacral region, R posterior upper thigh, L heel - sacral wound gram stain shows moderate gram+ bacilli, moderate counts of probable mixed skin microbiota, classification and sensitivities pending IV Ceftriaxone - Turn and position q 2 hours - Wound care - Nutrition consultation (7) Cellulitis of left lower leg: Plan: IV Ceftriaxone (see above) - Turn and position q2 hours - continue wound care - nutrition consultation (8) Persistent atrial fibrillation: Plan: Atrial fibrillation, on Eliquis anticoagulation and Amiodarone for rhythm control. Previously on metoprolol. -Continue Amiodarone -Continue Eliquis - per chart review, takes this daily rather than BID -TSH: 5.11, could be elevated as acute phase reactant (9) Acute hypoxemic respiratory failure: Plan: currently on 2L NC satting 98% (10) Hyperthyroidism: Plan: Patient previously on Methimazole which was held during last admission due to elevated TSH. - TSH 5.11, could be elevated as an acute phase reactant (11) Diabetes mellitus type 2 in obese: Plan: Blood sugar presently 114. Overall very well controlled - last HgbA1C on 08/01/24 = 5.7. Was previously on Januvia which was discontinued on last discharge. -Diet controlled -Daily BMP Plan Plan to d/c to SNF that family are in agreement with. PAD -Patient was on Plavix until 09/07 -Resume ASA 81mg po daily -Holding Atorvastatin for now while on Daptomycin F/E/N - LR at 100mL/hr x 2L, monitor electrolytes - check PO4 given poor oral intake, minced/moist diet as tolerated with aspiration precautions, oral hygiene q shift Ppx - Continue daily Eliquis Code - Full per discussion with patient and daughter at bedside Dispo - downgrade to PCU/tele Admission and Anticipated Discharge Date Admission Date: September 11, 2024 Supervising Physician Co-Signing Physician Notes I personally examined the patient and verified all sharma points of history and exam, discussed case, and agree with decision making with Dr Emmanuel sleeping comfortably. no new issues noted by nursing, although they did note she was not participating in care, was trying to refuse repositioning/etc vitals noted nad heent nc at resting comfortably nad heent nc at mmm breathing unlabored no accessory muscles good effort skin no rashes no pallor or icterus neuro no focal deficits. sepsis/septic shock - source not entirely clear, with lung/urinary/skin all being possible. However, seems most consistent with UTI due to indwelling Gould catheter, rather than pressure ulcer of the left buttock stage III POA, pressure ulcer of right gluteal fold stage III POA, pressure ulcer of left medial sacrum likely stage III POA, pressure ulcer of left posterior heel likely stage III POA, pressure ulcer of left lateral foot, stage III POA, or pressure induced bilateral medial thigh deep tissue injurygiven that all of these appear like they need local wound care but do not really seem to have much of any serious cellulitis tracking from them. continue current abx and supportive care, serial exams/labs/follow cultures. delirium/metabolic encephalopathy makes elucidating cause more difficult and probably compounds what appears to be a deconditioning/malnutrition cycle as well. continue to follow closely. case management/family to work on placement. PO intake will be sharma in her ability to recover afib - tachycardia seems to be more due to RVR than reflex tachycardia from sepsis or volume depletion at this point - had not been taking PO meds, continue to follow, continue metoprolol IV for now - but as she allows more PO intake, hopefully can transition back to PO rate control, continue current for now anticoagulated PO vanco for Cdiff proph since recent carrier and in hospitals/SNFs as well as currently on broad abx otherwise as above PT/OT eval and treat Subjective Patient was seen and evaluated at bedside no telemetry floor, on 2L NC, appearing awake and alert. Oriented to self (full name, ), place ([facility]), and month of year (September). At this time denies any pain or discomfort. Denies having a recent bowel movement. States "no" no whether she had breakfast yet this morning. Patient is afebrile, not having cough or apparent shortness of breath. At time of encounter, pt denied headache, dizziness, nausea/vomiting, chest pain, SOB, abdominal pain. Review of Systems 2 Review of Systems: per HPI Physical Exam Physical Exam: Constitutional: A&Ox3 at time of encounter, in no apparent distress HEENT: NC/AT, anicteric sclerae, EOM intact Cardiovascular: tachycardic regular, +s1/s2, no m/r/g Respiratory: mild coarse breath sounds b/l to auscultation, fair air entry b/l, no wheeze/rales/rhonchi GI: abdomen mildly distended, hypoactive bowel sounds, abdomen tympanic to percussion; nontender to palpation MSK: 4/5 strength in b/l UE, 3/5 strength in b/l LE; dressings in place on RLE BKA stump and LLE foot; - TTP of R anterior knee, where she has gauze taped over covering a 3x5cm dark healing area without epidermal covering, no purulence, swelling, or erythema of surrounding skin Neuro: no facial droop, speech intact, intermittent eye contact, most responses slow - moves all extremities; follows instruc tions to put arms out in front of her, turn palm-side up, and bend elbows, performed approximately symmetrically Results & Data Results & Data Vital Signs (Past 12 Hours) Vital Signs Temp Pulse Pulse Pulse Resp BP BP 09/16/24 06:09 99 H 132/88 09/16/24 05:36 115 H 132/88 09/16/24 03:33 36.3 C L 123 H 18 132/88 09/16/24 01:00 123 H 132/88 09/16/24 00:14 127 H 131/89 09/16/24 00:00 127 H 09/15/24 23:15 09/15/24 23:01 36.4 C L 127 H 18 09/15/24 19:35 36.6 C 115 H 18 BP Pulse Ox O2 Del Method O2 Flow Rate 09/16/24 06:09 09/16/24 05:36 09/16/24 03:33 98 Nasal Cannula 2 09/16/24 01:00 09/16/24 00:14 09/16/24 00:00 09/15/24 23:15 Nasal Cannula 2 09/15/24 23:01 131/89 100 Nasal Cannula 2 09/15/24 19:35 131/91 99 Nasal Cannula 2 Laboratory Results Abnormal lab results 09/16/24 09/16/24 Range/Units 07:33 08:54 RBC 3.75 L (4.20-5.40) M/uL Hgb 10.2 L (12.0-16.0) g/dl Hct 35.3 L (37.0-47.0) % MCHC 28.9 L (32.0-36.0) g/dL RDW Std Deviation 70.8 H (36.4-46.3) fL RDW Coeff of Rasheed 20.7 H (11.5-14.5) % Creatinine < 0.20 L (0.6-1.2) mg/dl Glucose 66 L (70-99(Fasting)) mg/dl Calcium 8.0 L (8.6-10.3) mg/dl Resident Activity Tracking Resident Involvement: Resident Care Provided Care Provided: Adult [facility] Medicine
[2024-09-16 08:08] LABS: Hematocrit (blood only) 35.3 % (37.0-47.0); Hemoglobin 10.2 g/dl (12.0-16.0); Mean Corpuscular Hemoglobin 27.2 pg (25.0-34.0); Mean Corpuscular Hgb Conc 28.9 g/dL (32.0-36.0); Mean Corpuscular Volume 94.1 fL (80.0-100.0); Mean Platelet Volume 11.6 fL (9.4-12.4); Platelet Count 265 K/uL (130-400); RDW Coefficient of Variation 20.7 % (11.5-14.5); RDW Standard Deviation 70.8 fL (36.4-46.3); Red Blood Count 3.75 M/uL (4.20-5.40); White Blood Count 9.67 K/ul (4.8-10.8)
[2024-09-16] MEDS: PANTOprazole 40 MG TAB PO SCH (08:43)
[2024-09-16 09:35] LABS: Anion Gap 7 (3-11); Blood Urea Nitrogen 7 mg/dl (6-23); Carbon Dioxide 25 mmol/L (21-32); Chloride 106 mmol/L (98-107); Creatinine Clr Calc Pharmacy 262.9 ml/min; Glucose 66 mg/dl (70-99(Fasting)); Potassium 4.1 mmol/L (3.5-5.1); Sodium 138 mmol/L (136-145)
[2024-09-16] MEDS: CARBOHYDRATES FOR HYPOGLYCEMIA PO PRN (16:50)
--- NOTE | 2024-09-16 17:57 | Billing Data ---
Date of Service September 16, 2024 Coding Level of Care Code 29615 SUB INP/OBS CARE
--- NOTE | 2024-09-17 07:18 | Hospitalist Progress Note ---
Date of Service September 17, 2024 Assessment & Plan (1) Septic shock: Plan: 69yo female with history of right BKA due to osteomyelitis in the last month, PVD, PAF on Eliquis, COPD on 2L O2 at baseline and HFpEF presenting with one week of progressive confusion at her facility [facility]. Septic shock present on arrival: Hypotensive, tachycardic with neutrophil predominant leukocytosis, elevated procalcitonin. Off pressors, BP 119/86, HR 96 Meds: - Ceftriaxone IV for suspected UTI etiology of sepsis, targeting Kelbsiella and E. coli - Oral vanco for C. diff prophylaxis - IV metoprolol tartrate 5mg q6h Pathology: - MRSA nares: negative - Sacral ulcer cx: moderate gram+ bacilli - Urine cx: Klebsiella variicola, E. coli - blood cx no growth - peritoneal/ascitic fluid: negative for growth, negative for malignancy Imaging: - CT chest: masslike consolidation 6x4.1x6cm in LLL; multiple distal airway mucous plugs in lower lobes; COPD - CT abdomen: see impression under diagnostic findings - Continue IVF - monitor fluid status. Last presented with significant volume overload secondary to acute on chronic HFpEF requiring aggressive diuresis. - Tylenol PRN - Zofran PRN (2) Acute UTI: Plan: urine cultures positive for Klebsiella variicola and E. coli - IV Ceftriaxone for suspected UTI etiology of sepsis - oral vanco for C. diff prophylaxis (3) Bilateral pneumonia: Plan: CT chest: multifocal pneumonia mostly LLL and L perihilar upper lobe, COPD - IV ceftriaxone primarily targeting suspected UTI cause of sepsis (see above) - satting well on 2L NC (4) Tachycardia: Plan: acute, currently 96 - metoprolol tartrate to 5mg q6h - maintenance IVF (5) Delirium: Plan: waxing and waning, mainly surface-level conversations with up to 5 word responses at best; continue assessing for changes in mental status (6) Pressure ulcers of skin of multiple topographic sites: Plan: Stage II-III ulcers on sacral region, R posterior upper thigh, L heel - sacral wound gram stain shows moderate gram+ bacilli, moderate counts of probable mixed skin microbiota, classification and sensitivities pending IV Ceftriaxone - Turn and position q 2 hours - Wound care - Nutrition consultation (7) Cellulitis of left lower leg: Plan: IV Ceftriaxone (see above) - Turn and position q2 hours - continue wound care - nutrition consultation (8) Persistent atrial fibrillation: Plan: Atrial fibrillation, on Eliquis anticoagulation and Amiodarone for rhythm control. Previously on metoprolol. -Continue Amiodarone -Continue Eliquis - per chart review, takes this daily rather than BID -TSH: 5.11, could be elevated as acute phase reactant (9) Acute hypoxemic respiratory failure: Plan: currently on 2L NC satting mid-high 90s (10) Hyperthyroidism: Plan: Patient previously on Methimazole which was held during last admission due to elevated TSH. - TSH 5.11, could be elevated as an acute phase reactant (11) Diabetes mellitus type 2 with peripheral artery disease: Plan: Blood sugar overall well controlled last HgbA1C on 08/01/24 = 5.7. Was previously on Januvia which was discontinued on last discharge. - diet controlled Plan Plan to d/c to SNF on Friday09/20/24 local to family PAD -Patient was on Plavix until 09/07 -Resume ASA 81mg po daily -Holding Atorvastatin for now while on Daptomycin F/E/N - LR at 100mL/hr x 2L, monitor electrolytes - check PO4 given poor oral intake, minced/moist diet as tolerated with aspiration precautions, oral hygiene q shift Ppx - Continue daily Eliquis Code - Full per discussion with patient and daughter at bedside Dispo - downgrade to PCU/tele Admission and Anticipated Discharge Date Admission Date: September 11, 2024 Supervising Physician Co-Signing Physician Notes I personally examined the patient and verified all sharma points of history and exam, discussed case, and agree with decision making with Dr Emmanuel Awake, still delirious, loosely refusing medications for nursing and has not eaten, although with some coaxing she takes her medicines vitals noted nad heent nc at nad heent nc at mmm breathing unlabored no accessory muscles good effort skin no rashes no pallor or icterus neuro no focal deficits. sepsis/septic shock - source not entirely clear, with lung/urinary/skin all being possible. However, seems most consistent with UTI due to indwelling Gould catheter, rather than pressure ulcer of the left buttock stage III POA, pressure ulcer of right gluteal fold stage III POA, pressure ulcer of left medial sacrum likely stage III POA, pressure ulcer of left posterior heel likely stage III POA, pressure ulcer of left lateral foot, stage III POA, or pressure induced bilateral medial thigh deep tissue injurygiven that all of these appear like they need local wound care but do not really seem to have much of any serious cellulitis tracking from them. continue current abx and supportive care, serial exams/labs/follow cultures. delirium/metabolic encephalopathy makes elucidating cause more difficult and probably compounds what appears to be a deconditioning/malnutrition cycle as well. continue to follow closely. has an SNF within her family's preferred radius next weekgiven that the main factor driving her progress versus deterioration towards more of a hospice role will be her progress with oral intake and therapyas long as we outline goals and have their team continue to follow/encourage/care for her there, it seems appropriate to move in that direction PO intake will be sharma in her ability to recoversee above afib - transition to PO and escalate meds for more consistent rate control; keep IV prn for refractory rates anticoagulated PO vanco for Cdiff proph since recent carrier and in hospitals/SNFs as well as currently on broad abx otherwise as above PT/OT eval and treat Subjective Patient was seen and evaluated at bedside no telemetry floor, on 2L NC, appearing awake and alert. Oriented to self (full name, ), place ([facility]), and month of year (September). At this time denies any pain or discomfort. Denies having a recent bowel movement. States "no" to whether she had breakfast yet this morning. Patient is afebrile, not having cough or apparent shortness of breath. Patient nods head when explained that her family has found a nursing facility close to their home which patient will be going to. At time of encounter, pt denied headache, dizziness, nausea/vomiting, chest pain, SOB, abdominal pain. Review of Systems Review of Systems: per HPI Physical Exam Physical Exam: Constitutional: A&Ox3 at time of encounter, in no apparent distress HEENT: NC/AT, anicteric sclerae, EOM intact Cardiovascular: tachycardic regular, +s1/s2, no m/r/g Respiratory: mild coarse breath sounds b/l to auscultation, fair air entry b/l, no wheeze/rales/rhonchi GI: abdomen mildly distended, hypoactive bowel sounds, abdomen tympanic to percussion; nontender to palpation MSK: 4/5 strength in b/l UE, 3/5 strength in b/l LE; dressings in place on RLE BKA stump and LLE foot; - TTP of R anterior knee, where she has gauze taped over covering a 3x5cm dark healing area without epidermal covering, no purulence, swelling, or erythema of surrounding skin Neuro: no facial droop, speech intact, intermittent eye contact, most responses slow - moves all extremities; follows instruc tions to put arms out in front of her, turn palm-side up, and bend elbows, performed approximately symmetrically Results & Data Results & Data Vital Signs (Past 12 Hours) Vital Signs Temp Pulse Pulse Resp BP BP Pulse Ox 09/17/24 06:19 97 H 116/78 09/17/24 06:04 118 H 128/84 09/17/24 02:48 36.7 C 109 H 16 123/83 100 09/17/24 00:34 101 H 122/92 09/17/24 00:00 131 H 09/16/24 23:51 131 H 130/95 09/16/24 22:41 36.4 C L 131 H 20 130/95 100 09/16/24 20:00 O2 Del Method O2 Flow Rate 09/17/24 06:19 09/17/24 06:04 09/17/24 02:48 Nasal Cannula 09/17/24 00:34 09/17/24 00:00 09/16/24 23:51 09/16/24 22:41 Nasal Cannula 09/16/24 20:00 Nasal Cannula 2 Laboratory Results Abnormal lab results 09/16/24 09/16/24 09/16/24 Range/Units 16:48 16:50 17:10 POC Glucose 61 L* 66 L* 65 L* (70-99) mg/dl 09/17/24 Range/Units 07:25 POC Glucose 66 L* (70-99) mg/dl Resident Activity Tracking Resident Involvement: Resident Care Provided Care Provided: Adult Hospital Medicine
[2024-09-17] MEDS ORDERED: METOPROLOL TARTRATE 1 MG/ML VIAL IV PRN (18:12)
--- NOTE | 2024-09-17 18:13 | Billing Data ---
Date of Service September 17, 2024 Coding Level of Care Code 73698 SUB INP/OBS CARE
[2024-09-17] MEDS: METOPROLOL TARTRATE 25 MG TAB PO SCH (20:56)
--- NOTE | 2024-09-18 07:13 | Hospitalist Progress Note ---
Date of Service September 18, 2024 Assessment & Plan (1) Septic shock: Plan: 69yo female with history of right BKA due to osteomyelitis (08/20/24), PVD, PAF on Eliquis, COPD on 2L O2 at baseline and HFpEF presenting with one week of progressive confusion at her facility [facility]. Septic shock present on arrival - hypotensive, tachycardic with neutrophil predominant leukocytosis, elevated procalcitonin. Treatment: - BP improved w 0.03 mcg/kg/min levophed. - IV Rocephin 1g q24h for UTI, likely source of sepsis - Oral vanc 125mg daily for C. diff prophylaxis - IV metoprolol tartrate 5mg q6h - Tylenol PRN - Zofran PRN Pathology: - MRSA nares: negative - Sacral ulcer cx: moderate gram+ bacilli - Urine cx: Klebsiella variicola, E. coli - Blood cx no growth - Peritoneal/ascitic fluid: negative for growth, negative for malignancy Imaging: - CT chest 09/11: masslike consolidation 6x4.1x6cm in LLL; multiple distal airway mucous plugs in lower lobes; COPD - CTAP: see under diagnostic findings (2) Acute UTI: Plan: - Urine cultures positive for Klebsiella variicola and E. coli - IV Ceftriaxone for suspected UTI etiology of sepsis - Oral vanco for C. diff prophylaxis (3) Bilateral pneumonia: Plan: - CT chest: multifocal pneumonia mostly LLL and L perihilar upper lobe, COPD - IV ceftriaxone primarily targeting suspected UTI cause of sepsis (see above) - satting well on 2L NC (4) Tachycardia: Plan: acute, currently in 130s - continue metoprolol tartrate to 5mg q6h (5) Delirium: Plan: waxing and waning, mainly surface-level conversations with up to 5 word responses at best - continue assessing for changes in mental status (6) Pressure ulcers of skin of multiple topographic sites: Plan: Stage II-III ulcers on sacral region, R posterior upper thigh, L heel - sacral wound gram stain shows moderate gram+ bacilli, moderate counts of probable mixed skin microbiota, classification and sensitivities pending IV Ceftriaxone - Turn and position q 2 hours - Wound care - Nutrition consultation (7) Cellulitis of left lower leg: Plan: IV Ceftriaxone (see above) - Turn and position q2 hours - continue wound care - nutrition consultation (8) Persistent atrial fibrillation: Plan: Atrial fibrillation, on Eliquis anticoagulation and Amiodarone for rhythm control. Previously on metoprolol. - Continue Amiodarone - Continue Eliquis - per chart review, takes this daily rather than BID (9) Acute hypoxemic respiratory failure: Plan: currently on 2L NC satting mid-high 90s (10) Hyperthyroidism: Plan: Patient previously on Methimazole which was held during last admission due to elevated TSH. - TSH 5.11, could be elevated as an acute phase reactant (11) Diabetes mellitus type 2 with peripheral artery disease: Plan: Blood sugar overall well controlled w diet Was previously on Januvia which was discontinued on last discharge. Latest a1c on 08/01/24 was 5.7 (12) Peripheral arterial disease: Plan: - Patient was on Plavix until 09/07 - Resume ASA 81mg po daily - Holding Atorvastatin for now Plan DVT Ppx - Continue daily Eliquis Code - Full per discussion with patient and daughter at bedside Dispo - Plan to d/c to SNF close to daughters on Friday09/20/24 Admission and Anticipated Discharge Date Admission Date: September 11, 2024 Supervising Physician Co-Signing Physician Notes I personally examined the patient and verified all sharma points of history and exam, discussed case, and agree with decision making with Dr Grant Awake, still delirious, loosely refusing medications for nursing and has not eaten, did drink a little. vitals noted nad heent nc at nad heent nc at mmm breathing unlabored no accessory muscles good effort skin no rashes no pallor or icterus neuro no focal deficits. sepsis/septic shock - source not entirely clear, with lung/urinary/skin all being possible. However, seems most consistent with UTI due to indwelling Gould catheter, rather than pressure ulcer of the left buttock stage III POA, pressure ulcer of right gluteal fold stage III POA, pressure ulcer of left medial sacrum likely stage III POA, pressure ulcer of left posterior heel likely stage III POA, pressure ulcer of left lateral foot, stage III POA, or pressure induced bilateral medial thigh deep tissue injurygiven that all of these appear like they need local wound care but do not really seem to have much of any serious cellulitis tracking from them. continue current abx and supportive care, serial exams/labs/follow cultures. delirium/metabolic encephalopathy seriously compounds what appears to be a deconditioning/malnutrition cycle as well. continue to follow closely but still declining despite efforts. has an SNF within her family's preferred radius next weekgiven that the main factor driving her progress versus deterioration towards more of a hospice role will be her progress with oral intake and therapyas long as we outline goals and have their team continue to follow/encourage/care for her there, it seems appropriate to move in that direction. updated dtr silas who agrees. afib - transitioned to PO and will continue escalate meds for more consistent rate control; keep IV prn for refractory rates anticoagulated PO vanco for Cdiff proph since recent carrier and in hospitals/SNFs as well as currently on broad abx otherwise as above PT/OT eval and treat anticipate SNF next week Subjective Patient was upset this morning. Told nurse her legs hurt. Then refused to take any of her medicine. Also would not eat, and per nurse, sealed her lips when given juice for her hypoglycemia. Her partner was in room when I saw her, and she was slightly more communicative. Expressed her desire to go home, and appeared to understand the need to finish her inpatient tx first. I left the room w her expressing hunger, and a demand to eat immediately, and a current agreement to take her medication. In terms of not feeling well, pt expressed that to nurse earlier in the morning but not to me. Denies HUNT, CP, SOB, abd pain Review of Systems 2 Review of Systems: per HPI Physical Exam 2 Physical Exam: Gen: Irritated and reticent, but NAD HEENT: NCAT, EOMI CV: RRR, no m/r/g Resp: CTAB, breathing non-labored Abd: Soft, NT/ND MSK: LLE full ROM; RLE s/p BKA, dressing c/d/i Skin: Thin, dry, substantial diffuse bruising Psych: perseverated on going home. Poor judgement and insight Results & Data Results & Data Vital Signs (Past 12 Hours) Vital Signs Temp Pulse Pulse Resp BP Pulse Ox O2 Del Method 09/18/24 03:35 36.5 C 132 H 18 128/88 98 Nasal Cannula 09/18/24 00:00 100 H 09/17/24 23:06 36.3 C L 132 H 18 115/81 98 Nasal Cannula 09/17/24 20:00 Nasal Cannula 09/17/24 19:26 36.5 C 134 H 18 114/85 98 Nasal Cannula O2 Flow Rate 09/18/24 03:35 2 09/18/24 00:00 09/17/24 23:06 2 09/17/24 20:00 2 09/17/24 19:26 2 Laboratory Results 09/18/24 07:02 09/18/24 07:02 Diagnostic Findings Chest X-Ray 09/11/24 00:39 EXAM: XR chest 1V portable CLINICAL HISTORY: SEPSIS, FEVER KFK TECHNIQUE: An X-ray image of the chest is obtained in AP projection. COMPARISON: None. FINDINGS: Pulmonary Parenchyma: Inhomogeneous shadowing/prominent bronchovascular markings at both mid-lower zones are more marked on the left side. Prominent leonard. Blunting of left costophrenic angle. Heart and Mediastinum: Heart size and shape are normal. No mediastinal widening or masses. No hilar or mediastinal lymphadenopathy. Bony Thorax: The bony thorax appears intact without fractures or deformities. Soft Tissues: Soft tissues overlying the chest wall are unremarkable. IMPRESSION: 1. Bilateral infiltration/congestion is more on the left side. Clinical correlation and follow-up are advised. 2. Prominent bilateral leonard. 3. Mild left pleural effusion. Electronically signed by Lupillo Child 09-11-2024 02:41 AM Foot X-Ray 09/11/24 03:35 EXAM: XR foot LT 2V CLINICAL HISTORY: OSTEOMYELITIS? S/P RT BKA, IMAGES OF STUMP KFK TECHNIQUE: X-ray images of the left foot were obtained in anteroposterior (AP), oblique, and lateral projections. COMPARISON: No prior studies are available for comparison. FINDINGS: Bone Structure: Posterior talus bone spur. The bone structure is normal and aligned. No evidence of fracture or dislocation. No osseous lesions or abnormalities were identified. Joint Spaces: Joint spaces are normal. No evidence of joint effusion or subluxation. Soft Tissues: Soft tissues appear normal and unremarkable. No soft tissue swelling, calcifications, or foreign bodies were noted. Additional Findings: No signs of osteoarthritis, bone spurs, lytic or sclerotic lesions. IMPRESSION: 1. Posterior talus bone spur. 2. No evidence of acute fracture, dislocation or gross lytic lesions. 3. Reduced bone density. DISCLAIMER:A subtle bone abnormality or fracture may not be readily apparent on x-rays, thus clinical correlation and further imaging including follow up CT, MRI, or follow up x-rays are advised as needed. Electronically signed by Lupillo Child 09-11-2024 05:04 AM Knee X-Ray 09/11/24 03:35 EXAM: XR knee RT 1 or 2V routine CLINICAL HISTORY: OSTEOMYELITIS? S/P RT BKA, IMAGES OF STUMP KFK TECHNIQUE: X-ray images of the right knee were obtained in anteroposterior (AP) and lateral projections. COMPARISON: 08/17/2024. FINDINGS: Bone Structure: There is a right distal femoral metaphyseal mainly osteosclerotic lesion, extending to distal epiphyses, measuring 3.5x1.7cm, it has a narrow zone of transition, with sclerotic margins, no matrix calcification, no soft tissue component, no periosteal reaction, and no cortical breach. Bone structure is normal and well-aligned. No evidence of acute fractures or dislocations. Joint Spaces: Mild osteoarthritic changes of the right knee joint, noted as few osteophytes and sclerosis. No significant narrowing of the medial or lateral compartments. Patella: The patella is normal in position and alignment. No evidence of patellar dislocation or subluxation. Soft Tissues: Periarticular soft tissues appear normal and unremarkable. No soft tissue swelling, calcifications, or foreign bodies were noted. IMPRESSION: 1. Redemonstration of the distal femoral metaphyseal mainly osteosclerotic lesion, extending to distal epiphyses, measuring 3.5x1.7cm, it has benign features. 2. No gross lytic lesions in the residual tibia and fibula. No evident periosteal reaction. 3. Mild osteoarthritic changes of right knee joint, with no joint space narrowing. 4. Contrast-enhanced MRI is advised to rule out osteomyelitis. Disclaimer: A subtle bone abnormality or fracture may not be readily apparent on X-rays, thus clinical correlation and further imaging including follow-up CT, MRI, or follow-up X-rays are advised as needed. Electronically signed by Lupillo Child 09-11-2024 04:54 AM Abdomen/Pelvis CT 09/11/24 05:32 08/14/2024. FINDINGS: Abdomen: Liver: Normal in size and shape, there is a diffuse increased liver density could be a side effect of medicine or blood transformation. No focal lesions, cysts, or masses were identified. Gallbladder and Biliary System: The gallbladder is over-distended with dependent hyperattenuating levels within it and mild smooth wall thickening. Pancreas: Pancreatic head, body, and tail are visualized and appear normal in size and density. No pancreatic masses or calcifications were noted. Spleen: Normal in size, shape, and density. No splenic lesions or masses were identified. Kidneys and Adrenal Glands: Both kidneys are normal in size, shape, and position. Cortical thickness is within normal limits. No renal hydronephrosis. a 4mm nonobstructing calculus in the right lower pole is noted. Adrenal glands are unremarkable. Appendix: Not well visualized but no gross abnormalities noted. Pelvis: Urinary Bladder: empty with catheter within it in contour and wall thickness. No intraluminal lesions. Uterus: Normal in size and contour. No masses or abnormal thickening. Ovaries: Not well visualized but no gross abnormalities noted. Vagina: Normal in contour and wall thickness. Cervix: No evidence of mass or abnormal thickening. Peritoneal and Retroperitoneal Structures: A large locule ascites is noted in the pelvis and the abdomen measures up to 20cm. with patchy fat stranding in the abdomen. No lymphadenopathy was noted. Bowel: The visualized bowel loops are normal in caliber and appearance. No evidence of bowel obstruction or wall thickening. The lower thorax Extensive relatively dense opacification in the left lower lobe with irregular margins suggests an inflammatory consolidation. Moderte left pleural effusion. Mild right pleural reaction (regression in comparison with CT on 08/14/2024 ) Moderate cardiomegaly. Bones and Soft Tissues: Patchy sclerotic changes were noted in the scanned vertebrae, No acute fractures were identified. IMPRESSION: 1. Extensive relatively dense opacification in the left lower lobe with irregular margins suggests an inflammatory consolidation with a moderate left pleural effusion.(new findings in comparison with CT on 08/14/2024) 2. A large locule ascites is noted in the pelvis and the abdomen measures up to 20cm. with patchy fat stranding in the abdomen.( mild regression in comparison with CT on 08/14/2024 )(stable) 3. A small non-obstructing calculus in the right renal lower pole is noted. 4. There is a diffuse increased liver density could be a side effect of medicine or blood transformation. 5. The gallbladder is over-distended with dependent hyperattenuating levels within and mild smooth wall thickening(stable), could be due to prolonged fasting or due to cholecystitis, needs clinical correlation. 6. Patchy sclerotic changes were noted in the scanned vertebrae, which could be due to renal failure or less likely suspicious lesion, need for bone scan correlation if clinically warranted.(stable) Electronically signed by Lupillo Child 09-11-2024 07:[address] 09/11/24 06:04 FINDINGS: Dilated both lateral ventricles, rounding of frontal horns, ballooning of third ventricle, out or proportion to age-related involtuional brain changes, could be due to hydrocephalus (Normal pressure hydrocephalus/ obstructive hydrocephalus) advised clinical correlation and MRI CSF-flowmetry study if clinically warranted Immediate periventricular hypodensity, seen related to frontal horns, could be due to trans ependymal CSF permeation or small vessel ischemic vasculopathy-related changes Right cerebellar peripheral hypodense area, could be due to ischemic insult advised clinical correlation and MRI with diffusion if clinically warranted Right lentiform 5mm hypodensity seen, could be lacunar infarct Brain Parenchyma: No evidence of hemorrhage, or mass effect. No abnormal areas of hyperattenuation. Subarachnoid Spaces: No evidence of subarachnoid hemorrhage or extra-axial fluid collections. Cerebellum and Brainstem: Normal size and attenuation. Orbits: Normal appearance of the globes, optic nerves, and extraocular muscles. Sinuses: Clear paranasal sinuses. No evidence of sinusitis or mucosal thickening. Mastoid Air Cells: Clear mastoid air cells. No evidence of mastoiditis. Skull and Meninges: Normal skull morphology. IMPRESSION: 1. Dilated both lateral ventricles, rounding of frontal horns, ballooning of third ventricle, out or proportion to age-related involutional brain changes, could be due to hydrocephalus (Normal pressure hydrocephalus/ obstructive hydrocephalus) advised clinical correlation and MRI CSF-flowmetry study if clinically warranted 2. Immediate periventricular hypodensity, seen related to frontal horns, could be due to trans ependymal CSF permeation or small vessel ischemic vasculopathy-related changes 3. The right cerebellar peripheral hypodense area could be due to ischemic insult advised clinical correlation and MRI with diffusion if clinically warranted 4. Right lentiform 5mm hypodensity seen, could be lacunar infarct. Electronically signed by Lupillo Child 09-11-2024 07:[address] 09/11/24 06:06 EXAM: CT Chest Without Intravenous Contrast FINDINGS: Lungs and pleural spaces: There are multifocal groundglass and consolidative infiltrates most significant in the left lower lobe and left perihilar upper lobe. Masslike consolidation in the left lower lobe measures 6.0 x 4.1 x 6.0 cm. Multiple distal airway mucous plugs noted in the lower lobes. No pneumothorax. Centrilobular emphysematous changes noted without dominant bulla or bleb. No bronchiectasis. Heart: No abnormality noted. Thyroid: Bilateral dense thyroid calcifications noted. No further assessment required. Bones/joints: Degenerative changes noted throughout the spine. No acute osseous abnormality seen. Soft tissues: No significant abnormality noted. Vasculature: See below. Lymph nodes: Enlarged 1.2 cm short axis dimension precarinal lymph node identified. Smaller nodes in the paratracheal and lateral aortic compartment. Hilar adenopathy not excluded. Liver: The liver is dense. Smooth contour. Gallbladder and bile ducts: Dilated possibly inflamed gallbladder. IMPRESSION: 1. Multifocal pneumonia most significant in the left lower lobe and left perihilar upper lobe. Follow-up until resolution needed to exclude underlying mass. 2. COPD. 3. Dilated gallbladder possibly inflamed. 4. Dense liver. Diagnostic considerations include but are not limited to effects of certain cardiac medications and hemochromatosis. Electronically signed by Barbara Moscoso 09-11-2024 08:24 AM Resident Activity Tracking Resident Involvement: Resident Care Provided Care Provided: Adult [facility]
[2024-09-18 07:41] LABS: Hematocrit (blood only) 36.9 % (37.0-47.0); Hemoglobin 10.9 g/dl (12.0-16.0); Mean Corpuscular Hgb Conc 29.5 g/dL (32.0-36.0); Mean Corpuscular Volume 91.3 fL (80.0-100.0); Mean Platelet Volume 11.6 fL (9.4-12.4); Platelet Count 319 K/uL (130-400); RDW Coefficient of Variation 20.4 % (11.5-14.5); RDW Standard Deviation 68.2 fL (36.4-46.3); Red Blood Count 4.04 M/uL (4.20-5.40); White Blood Count 11.36 K/ul (4.8-10.8)
[2024-09-18 07:58] LABS: Anion Gap 6 (3-11); Blood Urea Nitrogen 7 mg/dl (6-23); Calcium 7.8 mg/dl (8.6-10.3); Carbon Dioxide 30 mmol/L (21-32); Chloride 105 mmol/L (98-107); Creatinine Clr Calc Pharmacy 261.3 ml/min; Glucose 58 mg/dl (70-99(Fasting)); Potassium 3.5 mmol/L (3.5-5.1); Sodium 141 mmol/L (136-145)
--- NOTE | 2024-09-18 15:58 | Billing Data ---
Date of Service September 18, 2024 Coding Level of Care Code 59302 SUB INP/OBS CARE
[2024-09-18] MEDS: D5W AND 1/2NSS + 20MEQ KCL 20 MEQ/1,000 ML BAG IV SCH (17:15)
[2024-09-18] MEDS: METOPROLOL TARTRATE 25 MG TAB PO SCH ×2 (18:07→20:00)
[2024-09-18] MEDS: ONDANSETRON INJ 2 MG/ML 2 ML VIAL IV PRN (18:29)
[2024-09-18] MEDS: SODIUM CHLORIDE 0.9% 500 ML IV ONE (22:03)
[2024-09-19 07:20] LABS: Hematocrit (blood only) 32.4 % (37.0-47.0); Hemoglobin 9.5 g/dl (12.0-16.0); Mean Corpuscular Hemoglobin 27.1 pg (25.0-34.0); Mean Corpuscular Hgb Conc 29.3 g/dL (32.0-36.0); Mean Corpuscular Volume 92.6 fL (80.0-100.0); Mean Platelet Volume 11.3 fL (9.4-12.4); Platelet Count 326 K/uL (130-400); RDW Coefficient of Variation 20.4 % (11.5-14.5); RDW Standard Deviation 69.4 fL (36.4-46.3); White Blood Count 16.49 K/ul (4.8-10.8)
--- NOTE | 2024-09-19 07:29 | Hospitalist Progress Note ---
Date of Service September 19, 2024 Assessment & Plan (1) Septic shock: Plan: 69yo female with history of right BKA due to osteomyelitis (08/20/24), PVD, PAF on Eliquis, COPD on 2L O2 at baseline and HFpEF presenting with one week of progressive confusion at her facility [facility]. Septic shock present on arrival - hypotensive, tachycardic with neutrophil predominant leukocytosis, elevated procalcitonin. Treatment: - BP improved w 0.03 mcg/kg/min levophed. - IV Rocephin 1g q24h for UTI, likely source of sepsis - Oral vanc 125mg daily for C. diff prophylaxis - IV metoprolol tartrate 5mg q6h - Tylenol PRN - Zofran PRN Pathology: - MRSA nares: negative - Sacral ulcer cx: moderate gram+ bacilli - Urine cx: Klebsiella variicola, E. coli - Blood cx no growth - Peritoneal/ascitic fluid: negative for growth, negative for malignancy Imaging: - CT chest 09/11: masslike consolidation 6x4.1x6cm in LLL; multiple distal airway mucous plugs in lower lobes; COPD - CTAP: see under diagnostic findings (2) Acute UTI: Plan: - Urine cultures positive for Klebsiella variicola and E. coli - IV Ceftriaxone for suspected UTI etiology of sepsis - Oral vanco for C. diff prophylaxis (3) Bilateral pneumonia: Plan: - CT chest: multifocal pneumonia mostly LLL and L perihilar upper lobe, COPD - IV ceftriaxone primarily targeting suspected UTI cause of sepsis (see above) - satting well on 2L NC (4) Tachycardia: Plan: - converted to sinus reema 12/7 PM - metoprolol tartrate reduced to 12.5mg bid (5) Delirium: Plan: waxing and waning, mainly surface-level conversations with up to 5 word responses at best - continue assessing for changes in mental status (6) Pressure ulcers of skin of multiple topographic sites: Plan: Stage II-III ulcers on sacral region, R posterior upper thigh, L heel - sacral wound gram stain shows moderate gram+ bacilli, moderate counts of probable mixed skin microbiota, classification and sensitivities pending IV Ceftriaxone - Turn and position q 2 hours - Wound care - Nutrition consultation (7) Cellulitis of left lower leg: Plan: IV Ceftriaxone (see above) - Turn and position q2 hours - continue wound care - nutrition consultation (8) Persistent atrial fibrillation: Plan: Atrial fibrillation, on Eliquis anticoagulation and Amiodarone for rhythm control. Previously on metoprolol. - Continue Amiodarone - Continue Eliquis - per chart review, takes this daily rather than BID (9) Acute hypoxemic respiratory failure: Plan: currently on 2L NC satting mid-high 90s (10) Hyperthyroidism: Plan: Patient previously on Methimazole which was held during last admission due to elevated TSH. - TSH 5.11, could be elevated as an acute phase reactant (11) Diabetes mellitus type 2 with peripheral artery disease: Plan: Blood sugar overall well controlled w diet Was previously on Januvia which was discontinued on last discharge. Latest a1c on 08/01/24 was 5.7 (12) Peripheral arterial disease: Plan: - Patient was on Plavix until 09/07 - Resume ASA 81mg po daily - Holding Atorvastatin for now Plan DVT Ppx - Continue daily Eliquis Code - Full per discussion with patient and daughter at bedside Dispo - Plan to d/c to SNF close to daughters on Friday09/20/24 Admission and Anticipated Discharge Date Admission Date: September 11, 2024 Supervising Physician Co-Signing Physician Notes I personally examined the patient and verified all sharma points of history and exam, discussed case, and agree with decision making with Dr Grant Awake, Offers no complaints, very little spontaneous conversation, but denies any pain or shortness of breath vitals noted nad heent nc at nad heent nc at mmm breathing unlabored no accessory muscles good effort skin no rashes no pallor or icterus neuro no focal deficits. wounds without any tracking erythema sepsis/septic shock - source not entirely clear, with lung/urinary/skin all being possible. However, seems most consistent with UTI due to indwelling Gould catheter, rather than pressure ulcer of the left buttock stage III POA, pressure ulcer of right gluteal fold stage III POA, pressure ulcer of left medial sacrum likely stage III POA, pressure ulcer of left posterior heel likely stage III POA, pressure ulcer of left lateral foot, stage III POA, or pressure induced bilateral medial thigh deep tissue injurygiven that all of these appear like they need local wound care but do not really seem to have much of any serious cellulitis tracking from them. - rising white count today noted, but no clear signs of new or secondary bacterial infection; given that she was in septic shock when she was admitted close vigilanceand repeated CRP (up from a few days ago but down dramatically from day of admission) and procalcitonin is reassuring continue current abx and supportive care, serial exams/labs/follow cultures. delirium/metabolic encephalopathy seriously compounds what appears to be a deconditioning/malnutrition cycle as well. continue to follow closely but still declining despite efforts. has an SNF within her family's preferred radius next weekgiven that the main factor driving her progress versus deterioration towards more of a hospice role will be her progress with oral intake and therapyas long as we outline goals and have their team continue to follow/encourage/care for her there, it seems appropriate to move in that direction. updated dtr silas on 09/18 who agrees. afib - converted to sinus rhythm, rate controlled much easier now anticoagulated PO vanco for Cdiff proph since recent carrier and in hospitals/SNFs as well as currently on broad abx otherwise as above PT/OT eval and treat anticipate SNF next week current vigilance for any new or recurrent bacterial infections but no compelling findings to suggest a benefit in change of abx at this time Subjective Patient appears to be doing better than yesterday; per nursing, she had some breakfast and took her medicine. She was half-asleep when I saw her and stated she was tired, and would not give any real answers after that. She denied HUNT, SOB, CP, abd pain, but also said denied talking to her daughters or her partner, so it seems she was saying "no" until I left. Physical Exam 2 Physical Exam: Gen: NAD, drowsy HEENT: NCAT, EOMI CV: RRR, no m/r/g Resp: CTAB, breathing non-labored Skin: Thin, dry, substantial bruising on all extremities Psych: Delirium w impaired insight and judgement. Results & Data Results & Data Vital Signs (Past 12 Hours) Vital Signs Temp Pulse Pulse Resp BP Pulse Ox O2 Del Method 09/19/24 02:28 36.5 C 53 L 18 100/64 93 Nasal Cannula 09/18/24 23:45 52 L 09/18/24 22:57 36.3 C L 50 L 18 107/61 95 Nasal Cannula 09/18/24 20:00 Nasal Cannula 09/18/24 19:33 36.3 C L 50 L 18 91/59 L 100 Nasal Cannula O2 Flow Rate 09/19/24 02:28 2 09/18/24 23:45 09/18/24 22:57 2 09/18/24 20:00 2 09/18/24 19:33 2 Laboratory Results 09/19/24 06:59 09/19/24 06:59 Resident Activity Tracking Resident Involvement: Resident Care Provided Care Provided: Adult Hospital Medicine
[2024-09-19 07:47] LABS: Basophils # (auto) 0.02 K/uL (0.00-0.20); Basophils % (auto) 0.1 %; Eosinophils # (auto) 0.13 K/uL (0.00-0.50); Eosinophils % (auto) 0.8 %; Hypochromasia Present; Immature Granulocytes # (auto) 0.14 K/uL (0.01-0.20); Immature Granulocytes % (auto) 0.8 %; Lymphocytes # (auto) 0.68 K/uL (1.20-3.40); Lymphocytes % (auto) 4.1 %; Monocytes # (auto) 0.68 K/uL (0.11-0.59); Monocytes % (auto) 4.1 %; Neutrophils # (auto) 14.84 K/uL (1.40-6.50); Neutrophils % (auto) 90.1 %; Tear Drop Cells 1+
[2024-09-19 08:03] LABS: Anion Gap 4 (3-11); Blood Urea Nitrogen 7 mg/dl (6-23); Calcium 7.6 mg/dl (8.6-10.3); Carbon Dioxide 29 mmol/L (21-32); Chloride 106 mmol/L (98-107); Creatinine Clr Calc Pharmacy 263.3 ml/min; Glucose 99 mg/dl (70-99(Fasting)); Potassium 3.7 mmol/L (3.5-5.1); Sodium 139 mmol/L (136-145)
--- NOTE | 2024-09-19 18:12 | Billing Data ---
Date of Service September 19, 2024 Coding Level of Care Code 63999 SUB INP/OBS CARE
--- NOTE | 2024-09-19 18:13 | Billing Data ---
Date of Service September 19, 2024 Coding Level of Care Code 92263 SUB INP/OBS CARE
[2024-09-20] MEDS: DEXTROSE 50% 50 ML SYRINGE IV PRN (04:06)
[2024-09-20] MEDS: oxyCODONE HCL IR 5 MG TAB (IMMEDIATE RELEASE) PO STA (04:46)
[2024-09-20 06:35] LABS: Hematocrit (blood only) 31.9 % (37.0-47.0); Hemoglobin 9.4 g/dl (12.0-16.0); Mean Corpuscular Hemoglobin 27.1 pg (25.0-34.0); Mean Corpuscular Hgb Conc 29.5 g/dL (32.0-36.0); Mean Corpuscular Volume 91.9 fL (80.0-100.0); Mean Platelet Volume 11.4 fL (9.4-12.4); Platelet Count 331 K/uL (130-400); RDW Coefficient of Variation 20.3 % (11.5-14.5); RDW Standard Deviation 68.5 fL (36.4-46.3); Red Blood Count 3.47 M/uL (4.20-5.40); White Blood Count 16.02 K/ul (4.8-10.8)
[2024-09-20 06:41] LABS: Anion Gap 4 (3-11); Blood Urea Nitrogen 6 mg/dl (6-23); C Reactive Protein 12.23 mg/dl (0-0.5); Calcium 7.7 mg/dl (8.6-10.3); Carbon Dioxide 29 mmol/L (21-32); Chloride 106 mmol/L (98-107); Creatinine Clr Calc Pharmacy 268.2 ml/min; Glucose 97 mg/dl (70-99(Fasting)); Potassium 3.8 mmol/L (3.5-5.1); Sodium 139 mmol/L (136-145)
--- NOTE | 2024-09-20 07:43 | Hospitalist Progress Note ---
Date of Service September 20, 2024 Assessment & Plan (1) Septic shock: Plan: 69 y/o female with history of right BKA due to osteomyelitis (08/20/24), PVD, PAF on Eliquis, COPD on 2L O2 at baseline and HFpEF presenting from her facility at [facility] with one week of progressive confusion. Presented with septic shock requiring vasopressive support. Now maintaining adequate BPs without vasopressive agents. Presumed urinary source. On CTX and vanc for c dif ppx as positive c dif gene and multiple abx in health care facilities. Ordered MRI as persistently elevated markers of infection. Treatment: CTX start 09/15 PO Vanc - 125 mg daily for c dif ppx, start 09/14 Micro: MRSA nares: negative Sacral ulcer cx: moderate gram+ bacilli UCx: sargent sensitive klebsiella variicola, E. coli: Resistant to bactrim, cefazolin, and ampicillin BCx: NGTD x 48 hours Peritoneal culture: NGTD x 48, no signs of malignancy Imaging: CT chest 09/11: masslike consolidation 6 x 4.1 x 6 cm in LLL - will need outpatient follow up to resolution Ordered MRI pelvis to eval for sacral abscess (2) Leukocytosis: Plan: Persistently elevated WBC with neutrophilic predominance and elevated CRP. Procal negative. May be residual in the setting of septic shock. Overall lower than prior, but still elevated. Ordered peripheral smear. As there may be some concern for infectious source will order MRI Pelvis w/wo to eval for pelvic abscess. (3) Persistent atrial fibrillation: Plan: A fib on Eliquis and amiodarone at home. Was started on metoprolol for a fib with RVR while inpatient. Patient converted to sinus 09/18. Has been on the bradycardic side since. Suspect patient in a fib with RVR in setting of sepsis. Will hold metoprolol and monitor on tele. continue Eliquis adjusting rate control (4) Delirium: Plan: Waxing and waning, mainly surface-level conversations with up to 5 word responses at best. Patient with poor nutrition and low motivation to eat. Nutrition is on board - appreciate recs. May need to consider GOC conversation once primary critical care unit nurse returns from trip. (5) Pressure ulcers of skin of multiple topographic sites: Plan: Stage II-III ulcers on sacral region, R posterior upper thigh, L heel. WCx likely mixed skin faith. Less likely the nidus of infection, but MRI ordered for completeness. Turn and position q 2 hours Wound care Nutrition consultation (6) Acute hypoxemic respiratory failure: Plan: Patient with probable COPD. On 2L NC at home. (7) Hyperthyroidism: Plan: Patient previously on Methimazole which was held during last admission due to elevated TSH. TSH 5.11, could be elevated as an acute phase reactant. Recommend reeval outpatient. (8) Diabetes mellitus type 2 with peripheral artery disease: Plan: Blood sugar overall well controlled w diet. Latest A1c 5.7 08/01/24. Minimal insulin needs this admission. (9) Peripheral arterial disease: Plan: Patient was on Plavix until 09/07. Resume ASA 81mg PO daily. Holding Atorvastatin for now (10) Acute UTI: Plan: See above (11) Bilateral pneumonia: Plan: See above Plan Code status: full DVT ppx: continue Lynn RIVERA: regular Dispo: tele unit, SNF ideally close to [facility] - on board Admission and Anticipated Discharge Date Admission Date: September 11, 2024 Supervising Physician Co-Signing Physician Notes Attending Physician Supervision Note: I independently interviewed and examined the patient and verified the sharma history and physical, reviewed labs and image studies and agree with findings and care plan noted above. Per nursing - laying in bed mostly, not eating, drinking much. marco DEAN is away on vacation. No fever. On talking to daughter later in the day - patient had called her and yelled that she was not going to rehab. Easily arousable but falls asleep easily. Denied any concerns. CTA anteriorly, no resp distress, left leg + waffle boots. Abdomen - paracentesis site - clean. Tena + Sepsis/Septic shock - likely UTI d/t chronic tena - Klebsiella and E coli. In setting of Stage III gluteal/sacral ulcers and with rise in CRP and WBC - MRI pelvis ordered for any abscess collection but patient declined. -continue ceftriaxone -PO vanco for Cdiff proph since recent carrier and in hospitals/SNFs as well as currently on broad abx Pressure ulcer of left posterior heel and pressure ulcer of left lateral foot, stage III POA, or pressure induced bilateral medial thigh deep tissue injury - s/p debridement in july and august. -continue wound care. Delirium/metabolic encephalopathy - work up for new infection as above. -check ammonia level Malnutrition - Metabolic encephalopathy likely contributing to poor intake. A miodarone may be contributing as well. -Dietary consulted. -consider increasing zoloft vs adding remeron. Afib with Tachy-reema - converted to sinus rhythm, rate has been low. Holding amiodarone and b love per parameters. -consider cardio consult in am. HFpEF with Severe pul HTN/TR/LVH - Right heart failure - resume spironolactone. consider resuming lasix in am. Ascites - sec to right heart failure. s/p diagnostic paracentesis. lasix and spironolactone have been on hold due to low BP readings. resume slowly. s/p right BKA - has had limited mobility since then. Apixaban Full code Spoke to daughter - Clare and updated her on current status. Further goals of care discussion in am. Subjective Patient seen at bedside this AM. Minimal pain. No CP or SOB. Review of Systems 2 Review of Systems: per HPI Physical Exam 2 Physical Exam: Gen: well appearing patient in NAD HEENT: AT NC MMM Resp: CTAB no wheezing no increased work of breathing CV: bradycardic, regular rhythm, clinically well perfused Abd: non-distended MSK: right hand swelling - nontender, no obvious deformities Skin: no rashes or bruising Neuro: alert and oriented Psych: appropriate mood and affect Results & Data Results & Data Vital Signs (Past 12 Hours) Vital Signs Temp Pulse Pulse Pulse Resp BP Pulse Ox 09/20/24 02:50 36.4 C L 57 L 18 107/67 96 09/19/24 23:11 36.6 C 58 L 18 110/68 98 09/19/24 22:00 60 09/19/24 20:46 55 L 09/19/24 20:08 36.4 C L 63 18 110/69 96 O2 Del Method O2 Flow Rate 09/20/24 02:50 Nasal Cannula 2 09/19/24 23:11 Nasal Cannula 2 09/19/24 22:00 09/19/24 20:46 09/19/24 20:08 Nasal Cannula 2 Laboratory Results 09/20/24 05:45 09/20/24 05:45 Resident Activity Tracking Resident Involvement: Resident Care Provided Care Provided: Adult [facility] Medicine
[2024-09-20] MEDS: ALBUMIN 5% 250 ML IV ONE (12:40)
[2024-09-20] MEDS ORDERED: POLYETHYLENE (MIRALAX) 17 GM PACK PO SCH (17:45)
[2024-09-20] MEDS: MELATONIN 3 MG TAB PO PRN (21:55)
[2024-09-20] MEDS: POLYETHYLENE (MIRALAX) 17 GM PACK PO SCH (21:56)
[2024-09-21] MEDS: ALBUMIN 5% 250 ML IV ONE (03:44)
[2024-09-21 06:26] LABS: Calcium 8.1 mg/dl (8.6-10.3); Creatinine Clr Calc Pharmacy 267.5 ml/min; Potassium 3.7 mmol/L (3.5-5.1)
[2024-09-21 06:30] LABS: Basophils # (auto) 0.02 K/uL (0.00-0.20); Basophils % (auto) 0.1 %; Eosinophils # (auto) 0.04 K/uL (0.00-0.50); Eosinophils % (auto) 0.2 %; Hematocrit (blood only) 33.1 % (37.0-47.0); Hemoglobin 9.3 g/dl (12.0-16.0); Hypochromasia Present; Immature Granulocytes # (auto) 0.13 K/uL (0.01-0.20); Immature Granulocytes % (auto) 0.7 %; Lymphocytes # (auto) 0.53 K/uL (1.20-3.40); Lymphocytes % (auto) 2.8 %; Mean Corpuscular Hemoglobin 26.5 pg (25.0-34.0); Mean Corpuscular Hgb Conc 28.1 g/dL (32.0-36.0); Mean Corpuscular Volume 94.3 fL (80.0-100.0); Mean Platelet Volume 11.5 fL (9.4-12.4); Monocytes # (auto) 0.59 K/uL (0.11-0.59); Monocytes % (auto) 3.2 %; Neutrophils # (auto) 17.36 K/uL (1.40-6.50); Platelet Count 296 K/uL (130-400); Polychromasia 1+; RDW Coefficient of Variation 20.4 % (11.5-14.5); RDW Standard Deviation 69.8 fL (36.4-46.3); Red Blood Count 3.51 M/uL (4.20-5.40); Tear Drop Cells 1+; White Blood Count 18.67 K/ul (4.8-10.8)
[2024-09-21] MEDS ORDERED: methylPREDNISolone 125 MG/2 ML VIAL IV STA (06:43)
[2024-09-21] MEDS ORDERED: VANCOMYCIN CONSULT ACTIVE PRN (06:43)
[2024-09-21] MEDS ORDERED: methylPREDNISolone 125 MG/2 ML VIAL IV SCH (06:45)
[2024-09-21] MEDS ORDERED: VANCOMYCIN HCL 1,000 MG/270 ML BAG IV SCH (06:45)
--- NOTE | 2024-09-21 06:58 | Communication Note ---
Date of Service: September 21, 2024 Code shant called approximately 6:40 AM for oxygenation status in the 40s. Chest x-ray done this morning showed complete whiteout of the left lung. Nebulizer treatment given to patient which improved oxygenation status. Lactate added onto morning labs. Gave 120 Solu-Medrol followed by 40 every 8. Switch antibiotic therapy to Vanco and Zosyn. Will get CT chest without contrast. Will sign out to day team.
--- NOTE | 2024-09-21 07:00 | XRay Report ---
EXAM: XR chest 1V portable CLINICAL HISTORY: WORSENING OXYGEN REQUIREMENT WTW TECHNIQUE: X-ray images of the chest were obtained in frontal projections. COMPARISON: 09/11/2024 FINDINGS: The patient is not well centralized. Pulmonary Parenchyma: Currently noted total opacification of the left hemithorax mostly along its middle and lower lung zones with obliteration of left costo-phrenic angle; likely marked pleural effusion with subsegmnetal collapse of the overlying lung. Prominent leonard. Currently noted ill-defined areas of ground glass infiltrates are seen scattered within right lung. Currently noted obliterated right costo-phrenic angle likely by minimal pleural effusion. Heart and Mediastinum: the heart is not viualized. Bony Thorax: The bony thorax appears intact without fractures or deformities. Soft Tissues: Soft tissues overlying the chest wall are unremarkable. IMPRESSION: 1. Currently noted total opacification of the left hemithorax mostly along its middle and lower lung zones with obliteration of left costo-phrenic angle; likely marked pleural effusion with subsegmnetal collapse of the overlying lung. 2. Currently noted ill-defined areas of ground glass infiltrates are seen scattered within right lung; possibly infective/inflammatory. 3. Currently noted obliterated right costo-phrenic angle likely by minimal pleural effusion. [facility] ER was called at [phone] at 5:35 AM HEALTH SERVICES RN on 09/21/2024 and Eliane(nurse) was informed regarding the presence of Significant Medical Findings in the report. Electronically signed by Lupillo Child 09-21-2024 06:39 AM
[2024-09-21] MEDS: SODIUM CHLOR 7% 4 ML NEB NEB SCH (07:06)
[2024-09-21] MEDS: ALBUT/IPRATROP 3MG/0.5MG NEB 3 ML VIAL ONE (07:06)
[2024-09-21 07:28] LABS: Anisocytosis Present
--- NOTE | 2024-09-21 07:39 | Hospitalist Progress Note ---
Date of Service September 21, 2024 Assessment & Plan (1) Septic shock: Plan: 69 y/o female with history of right BKA due to osteomyelitis (08/20/24), PVD, PAF on Eliquis, COPD on 2L O2 at baseline and HFpEF presenting from her facility at [facility] with one week of progressive confusion. Initially presented with septic shock requiring vasopressive support from a presumed urinary source. She was maintaining adequate BPs without vasopressive agents. Acute respiratory decompensation this morning prompting code purple - requiring escalation of care back to the ICU. CT Chest with interval worsening and complete white out of the left lung. Etiology not entirely clear, but there is concern for obstructive process possible mucous plugging, mass, malignant effusion. Broadened abx to Zosyn/Vanc. Added steroids. Given Lasix 40 mg IV x1. Continue to diuresis as BP tolerates. Did discuss case with Dr. Feliz, pulmonology who would not recommend pulmonary intervention at this point as patient on Eliquis. Holding Eliquis at this point for possible intervention. Continue respiratory support with supplemental oxygen. Ongoing discussion regarding goals of care. Family considering transition to [facility]. Continue with peripheral phenylephrine while family discusses. If we do decide to continue with vasopressive agents she would need more central access. Next steps will be based on family decision. Would transfer out of ICU if we do transition to [facility]. Treatment: CTX 09/15 - 09/21 PO Vanc - 125 mg daily for c dif ppx, start 09/14 Vanc/Zosyn - start 09/21 Micro: MRSA nares: negative Sacral ulcer cx: moderate gram+ bacilli UCx: sargent sensitive klebsiella variicola, E. coli: Resistant to bactrim, cefazolin, and ampicillin BCx: NGTD x 48 hours Peritoneal culture: NGTD x 48, no signs of malignancy Imaging: CT chest 09/11: masslike consolidation 6 x 4.1 x 6 cm in LLL - will need outpatient follow up to resolution CT chest 09/21: significant interval worsening of left pleural effusion with total collapse of the underlying lung. Significant interval worsening of right pleural effusion being moderate to severe in today's study with subsegmental collapse of the underlying lung Ordered MRI Pelvis w/wo to eval for pelvic abscess. Patient declined MRI. (2) Leukocytosis: Plan: Persistently elevated WBC with neutrophilic predominance and elevated CRP. Procal negative. May be residual in the setting of septic shock. Overall lower than prior, but still elevated. Ordered peripheral smear. As there may be some concern for infectious source will order MRI Pelvis w/wo to eval for pelvic abscess. Patient declined MRI. (3) Persistent atrial fibrillation: Plan: A fib on Eliquis and amiodarone at home. Has been intermittently in RVR. Metoprolol was started, but patient became bradycardic. Continue amiodarone. Adjust medications as indicated, per ICU holding Eliquis for possible procedure rate control per automotive finance manager (4) Delirium: Plan: Waxing and waning, mainly surface-level conversations with up to 5 word responses at best. Patient with poor nutrition and low motivation to eat. Nutrition is on board - appreciate recs. Discussing GOC. (5) Pressure ulcers of skin of multiple topographic sites: Plan: Stage II-III ulcers on sacral region, R posterior upper thigh, L heel. WCx likely mixed skin faith. Less likely the nidus of infection, but MRI ordered for completeness. Turn and position q 2 hours Wound care Nutrition consultation (6) Hyperthyroidism: Plan: Patient previously on Methimazole which was held during last admission due to elevated TSH. TSH 5.11, could be elevated as an acute phase reactant. Recommend reeval outpatient. (7) Diabetes mellitus type 2 with peripheral artery disease: Plan: Blood sugar overall well controlled w diet. Latest A1c 5.7 08/01/24. Minimal insulin needs this admission. (8) Peripheral arterial disease: Plan: Patient was on Plavix until 09/07. Resumed ASA 81mg PO daily. Holding Atorvastatin for now (9) Acute UTI: Plan: See above (10) Bilateral pneumonia: Plan: See above Plan Hospitalist team will continue to follow with patient care. Code status: DNR/DNI DVT ppx: holding Eliquis for possible thoracentesis FENGI: regular Dispo: ICU, if we decide to go forward with [facility] would move to 4th floor for expectant management Admission and Anticipated Discharge Date Admission Date: September 11, 2024 Supervising Physician Co-Signing Physician Notes Attending Physician Supervision Note: I independently interviewed and examined the patient and verified the sharma history and physical, reviewed labs and image studies and agree with findings and care plan noted above. Code purple this am for SaO2 48%. CT Chest- left chest white out. Transferred to ICU. Easily arousable but falls asleep easily. Responsive on waking up. On nonrebreather. Limited air movement on right, left leg + waffle boots. Tena + Acute hypoxic resp failure - possibly from obstructive process/malignancy/pleural effusion. CT scan showing significant bilateral pleural effusion with collapse of l ungs. -ICU care - Now DNR/DNI. Awaiting further discussion among daughters regarding transition to comfort care. -Methylpred IV -phenylephrine for pressure support -Broad-spectrum antibiotic -Zosyn and vancomycin -Pul unable to attempt thoracentesis this am due to anticoagulation. HFpEF with Severe pul HTN/TR/LVH - Right heart failure -on Lasix and spironolactone. Has been held due to lower BP. Sepsis/Septic shock -on presentation. Procal elevated on admission - normalized 09/19. UTI d/t chronic tena as source. Klebsiella and E. coli on culture. treated with broad spectrum abx. Also treated for bilateral pneumonia. -With further rise in WBC count and CRP in setting of Stage III gluteal/sacral ulcers - MRI pelvis ordered 09/20 for any abscess collection but patient declined. Delirium/metabolic encephalopathy -likely multifactorial. Malnutrition -multifactorial. -Dietary consulted. Afib with Tachy-reema - converted to sinus rhythm, rate has been low. Held amio darone and b love d/t parameters. -Apixaban on hold as well for possible thoracentesis/bronch. Ascites - sec to right heart failure. s/p diagnostic paracentesis. lasix and spironolactone have been on hold due to low BP readings. s/p right BKA - has had limited mobility since then. Pressure ulcer of left posterior heel and pressure ulcer of left lateral foot, stage III POA, or pressure induced bilateral medial thigh deep tissue injury - s/p debridement in july and august. -Per wound care. Apixaban on hold DNR/DNI -PO vanco for Cdiff proph since recent carrier and in hospitals/SNFs as well as currently on broad abx Spoke to daughter Nikki Sparks and updated her on current status this am. ICU team has been communicating since transfer to ICU. Subjective Code purple called prior to start of shift. Patient upgraded to ICU. Family changed code status to DNR/DNI. Considering comfort care. No meaningful history obtained at bedside. Review of Systems Review of Systems: per HPI Physical Exam Physical Exam: Gen: chronically ill appearing patient in NAD, appears older than stated age HEENT: AT NC MMM Resp: no increased work of breathing, oxymask in place CV: clinically well perfused Abd: non-distended MSK: no obvious deformities Skin: no rashes or bruising Neuro: alert and oriented Psych: appropriate mood and affect Results & Data Results & Data Vital Signs (Past 12 Hours) Vital Signs Temp Pulse Pulse Pulse Resp BP Pulse Ox 09/21/24 07:07 124 H 26 H 98 09/21/24 07:06 123 H 123/92 98 09/21/24 06:49 126 H 32 H 117/74 93 09/21/24 04:19 107 H 114/70 09/21/24 03:12 118 H 21 101/63 92 09/21/24 02:33 36.5 C 57 L 18 125/76 90 09/20/24 23:00 36.6 C 55 L 18 106/69 92 09/20/24 22:45 55 L 09/20/24 20:32 09/20/24 19:52 36.6 C 56 L 18 114/74 91 O2 Del Method O2 Flow Rate 09/21/24 07:07 Non-rebreather 15 09/21/24 07:06 Oxymask 8 09/21/24 06:49 Non-rebreather 15 09/21/24 04:19 09/21/24 03:12 Nasal Cannula 3 09/21/24 02:33 Nasal Cannula 1 09/20/24 23:00 Nasal Cannula 2 09/20/24 22:45 09/20/24 20:32 Nasal Cannula 3 09/20/24 19:52 Nasal Cannula 2 Resident Activity Tracking Resident Involvement: Resident Care Provided Care Provided: Adult Hospital Medicine
[2024-09-21] MEDS: methylPREDNISolone 125 MG in SYRINGE 0 ML IV ONE (07:42)
[2024-09-21] MEDS: PIPERACILLIN/TAZOBACTAM 4.5 GM/100 ML BAG IV ONE (07:43)
[2024-09-21] MEDS: FUROSEMIDE 40 MG/4 ML VIAL IV ONE (07:48)
--- NOTE | 2024-09-21 08:52 | CT Scan Report ---
EXAM: CT chest diagnostic wo con CLINICAL HISTORY: TECHNIQUE: Contiguous axial CT images of the chest were acquired without administration of intravenous contrast. Coronal and sagittal reconstructions were obtained. One of the following dose reduction techniques were utilized for this exam: Automated exposure control, adjustment of the mA and/or kV according to patient size, use of iterative reconstruction. COMPARISON: 09/11/2024 FINDINGS: Lungs: Significant interval worsening of left pleural effusion being marked in today's study with total collapse of the underlying lung. Significant interval worsening of right pleural effusion being moderate to severe in today's study with subsegmental collapse of the underlying lung. Still noted right upper lobe and to much less extent middle lobe atelectatic changes, interlobular septal thickening . No pulmonary nodules or masses are identified. Mediastinum: No mediastinal mass or abnormal lymphadenopathy. The heart size is within normal limits. Still noted right diaphragmatic crura lesion showing fat desnity; likely lipoma, measuring about 4.5 x2.4 cm in axial dimensions. Chest Wall: The chest wall is unremarkable with no evidence of soft tissue or bony abnormalities. Upper Abdomen: Visualized portions of the abdomen show minimal perihepatic fluid. Bones: Visualized osseous structures are normal, no evidence of fracture or lytic/sclerotic lesions. IMPRESSION: 1. Significant interval worsening of left pleural effusion being marked in today's study with total collapse of the underlying lung. Significant interval worsening of right pleural effusion being moderate to severe in today's study with subsegmental collapse of the underlying lung. Urgent action is suggested. 2. Aerated portions of the right upper and right middle lobe showing septal thickening representing pulmonary congestion. 3. Still noted right diaphragmatic crura lesion showing fat desnity; likely lipoma. Electronically signed by Lupillo Child 09-21-2024 08:20 AM
[2024-09-21] MEDS: VANCOMYCIN HCL 1,500 MG in SODIUM CHLORIDE 0.9% 500 ML IV ONE (08:59)
[2024-09-21] MEDS: SPIRONOLACTONE 25 MG TAB PO SCH (10:52)
--- NOTE | 2024-09-21 10:59 | Pharmacy Report ---
Pharmacy PK ABX Note - Date of Service September 21, 2024 - Assessment and Plan Assessment 69 year old F receiving vancomycin and zosyn for treatment empirically. Pertinent microbiologic data includes: negative MRSA Nasal Swab on admission 09/11 and repeat not obtained due to concern for post obstructive pna limiting utility of nasal swab. Patient was previously on 6 days of ceftriaxone for UTI. Day # 1 of vanc and zosyn therapy. Plan Vancomycin * Loading dose: 1500 mg IV x 1 administered @0900 * Maintenance dose: 1250 mg IV every 12 hours * Regimen is predicted to achieve target AUC/CYNTHIA of 400-600 mg/L.hr * Random level ordered for: Therapy duration currently 48 hours for empiric indication. In anticipation of possible extension for pna, will order a random level /09/23 with AM labs. Pharmacy will continue to follow and will adjust dose/frequency as necessary. Thank you. Pharmacy has transitioned to AUC monitoring for vancomycin. AUC/CYNTHIA is the preferred PK/PD target and is associated with decreased risk of nephrotoxicity compared to traditional trough targets.
[2024-09-21 11:40] VITALS: TEMP 97.9
[2024-09-21] MEDS ORDERED: STAT IV Infusion **Titration per Protocol STA (12:20)
[2024-09-21] MEDS: PHENYLEPHRINE/NSS 25 MG/250 ML BAG IV SCH (12:38)
[2024-09-21] MEDS: MoRPHine SULFATE 2 MG/ML CARP IV STA ×2 (12:50→16:00)
--- NOTE | 2024-09-21 12:55 | Critical Care Consultation ---
Date of Consultation September 21, 2024 Assessment & Plan (1) Septic shock: Reason Critically Ill: Acute hypoxic respiratory failure and hypotension 24-hour events: Code purple as noted above. Recommendations: Neuro -encephalopathy: Favor metabolic etiology Cardiac - Presumed septic shock. Multiple potential portals of entry. Holding antihypertensives. A-fib, anticoagulated with Eliquis. Respiratory - Hypoxemia with multifocal airspace opacities. Suspect pneumonia, possible aspiration. Bilateral pleural effusions with left greater than right. There is also total collapse of the left lung. I am concerned for an obstructive process, lung abscess, possible mass. Possible reactive pleural effusion, possible mucoid impaction GI - History of ascites with portal hypertension -C. difficile toxin positive, previously started on oral vancomycin RENAL/LYTES - Extremely low creatinine: Likely reflective of severe protein calorie malnutrition and sarcopenia. - Foleystrict I's and O's ENDO - Glycemic control per protocol. Relative adrenal insufficiency on replacement steroids. Would consider tapering over the next 5 to 7 days to off. HEME - Mild anemia. No evidence of acute blood loss. No indication for transfusion currently. ID - Sepsismultiple potential sources, possible pneumonia and lung abscess and postobstructive process, and cannot rule out Soft tissue/osteo from previous wounds nor sacral wound. Agree with vancomycin and Zosyn LINES/IV ACCESS - Peripheral IVs -Discussed with family possible need for advanced access holding at this time DVT PROPHYLAXIS - SCDs, Eliquis: Holding Eliquis (2) Acute UTI: (3) Bilateral pneumonia: (4) Sacral wound: (5) Cellulitis of left lower leg: (6) Acute hypoxemic respiratory failure: (7) Persistent atrial fibrillation: (8) Failure to thrive in adult: (9) Pleural effusion: (10) Anasarca: (11) Acute respiratory failure with hypoxia: (12) Mediastinal lymphadenopathy: (13) Atrial fibrillation: (14) Protein-calorie malnutrition: (15) Atelectasis of right lung: (16) Anticoagulant long-term use: (17) Tachycardia: (18) Pressure ulcers of skin of multiple topographic sites: (19) Goals of care, counseling/discussion: Supervising Physician Co-Signing Physician Notes Extensive discussion with patient's daughter, Clare Wilder who lives approximately 3 hours away is unable to travel doing to her being 37 weeks pregn ant. The patient's primary contact in the medical record is her other daughter Sara who is currently on a cruise that the left out of a port in [place]. Both Sara and Clare have been in contact via Facebook. Sara would be returning to a [place] port on Friday; the earliest expected arrival in [place] would be September 26. They contacted staff this morning to confirm their mother would want to be DNR/DNI in event of cardiac arrest and respiratory insufficiency. Clare's address is [address] [facility] [address]; Sara's address is [address] [place] [address]; Clare reported the patient's address currently is [address] [place] [address]. Clare confirmed the patient does not have a formal healthcare power of commercial litigation attorney, she does not have a living spouse, both her and Sara are the only 2 adult children. The patient does have 3 brothers. The patient had been living with a significant other Cody Gracia, Cody and Natividad are not formally . Cody has been functioning as a de facto primary caregiver in their residence as they live together; however, by enlarge part on any hospital admission and medical decision making has been through Sara and Clare, this is also reflected in the medical record. Clare reported over the last 4 to 6 months the patient has been fiercely independent and only participating in care she feels is needed, this includes refusing recommendations and care over blood glucose management imaging and refusing to follow with wound care. It was reported the patient's significant other stated to Daniel he is no longer able to care for the patient given her level of needs. Clare has had marlen discussions with her mother and she would not want heroic measures undertaken in event of cardiac arrest she would not want a breathing tube placed under any circumstances and she would not want a feeding tube. We discussed the patient's current state, including but not limited to acute hypoxic respiratory failure with possible compressive atelectasis to pleural effusions which could be reactive in nature. There is a possibility of a mass in the left lung which may represent/be causing postobstructive issues including but not limited to lung abscess. We discussed the patient has already been on noninvasive mechanical ventilation and has largely failed conservative treatments. The patient herself does not appear to have decisional capacity she is only oriented to self stating it was 2022 she is uncertain of the month she was able to state that she was in a hospital however she does not appear to have insight into the disease process during my evaluation. Not withstanding the patient is refusing to wear an oxygen mask, when nursing states if you get any worse you will need to either have a breathing tube placed or you may pass away the patient responded just let her . Clare stated on previous admissions there was a general plan to move the patient closer to them to facilitate care; however, this has not occurred for a variety of reasons. The tentative plan as reported to me by the initial treatment team was discharged to a longterm facility closer to the [facility]. We had a discussion regarding goals of care, I do believe the patient is exhibiting failure to thrive and is approaching an end-stage terminal condition without meaningful chance of recovery: Meaningful chance of recovery meaning living and functioning independently. Clare reports that the patient has not been able to walk independently. Patient appears to have been making her medical choices and wishes clear by refusing MRIs and blood glucose measurements and has requested to be comfortable on multiple different occasions. Clare feels that her mother would desire to transition to total comfort care and discontinuing artificial hydration, antibiotics, and life-sustaining treatments; however, she wants to involve her sister and this decision making and she is attempting to reach out at her at this time. I am awaiting callback after that discussion occurs. We also discussed the logistics and likelihood of the patient being able to survive until family could return; I do not believe that is likely unless the patient is given advanced access with a central venous line, started on broad-spectrum antibiotics, likely intubated for airway control and optimization including bronchoscopy and thoracentesis. Clare confirmed all those procedures are not in accordance with the mothers long-term wishes. At the present time we will continue with peripherally administered phenylephrine for hypotension and limited interventions until Clare has an opportunity to discuss the current state and prognosis of their mother. I have personally spent 95 minutes of critical care time in the direct management of this patient. This is a life/limb threatening event. This includes time spent evaluating patient, direct bedside care, chart review, placing orders, interpretation of diagnostic studies, discussion with consultants, patient, and/or family members regarding treatment decisions, as well as other required patient management activities. This time is exclusive of all separately billable procedures, and teaching time and separate from and in addition to any other critical care service time. 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 She presented to the hospital approximately on September 11 and was initially diagnosed with septic shock, she had subsequently improved however not to the point of being able to be discharged home. Overnight the patient decompensated and was given a code purple for hypoxia and she was transferred to the ICU for further aggressive treatment. Subsequently upon her arrival in the ICU I was contacted by the patient's daughter who advised updating CODE STATUS to DNR/DNI in event of cardiac arrest. Allergies Allergy/AdvReac Type Severity Reaction Status Date / Time ciprofloxacin [Cipro] Allergy Mild SHORTNESS Verified 07/31/24 20:15 OF BREATH miconazole Allergy Mild Rash Verified 07/31/24 20:15 empagliflozin Allergy Unknown Unknown Verified 07/31/24 20:15 [From Jardiance] metformin Allergy Unknown Unknown Verified 07/31/24 20:15 Home Medications Medication Instructions Recorded Confirmed Type amiodarone 200 mg tablet 200 mg PO QAM 07/31/24 09/11/24 History apixaban 5 mg tablet (Eliquis) 5 mg PO QAM 07/31/24 09/11/24 History pantoprazole 40 mg tablet,delayed 40 mg PO QAM 07/31/24 09/11/24 History release atorvastatin 40 mg tablet 80 mg (2 x 40 mg) PO QAM #30 tabs 08/25/24 09/11/24 Rx furosemide 40 mg tablet 40 mg PO DAILY #0 tabs 08/25/24 09/11/24 Rx sertraline 50 mg tablet (Zoloft) 50 mg PO DAILY USES FOR ANXIETY #0 08/25/24 09/11/24 Rx tabs spironolactone 100 mg tablet 100 mg PO QAM #30 tabs 08/25/24 09/11/24 Rx Boost Glucose Control 1 btl PO BID 09/11/24 09/11/24 History acetaminophen 500 mg capsule 500 mg PO QID 09/11/24 09/11/24 History ferrous sulfate 325 mg (65 mg 325 mg PO DAILY 09/11/24 09/11/24 History iron) tablet folic acid 1 mg tablet 1 mg PO DAILY 09/11/24 09/11/24 History gabapentin 100 mg capsule 100 mg PO BID 09/11/24 09/11/24 History oxycodone 5 mg tablet 5 mg PO Q6 PRN Severe Pain (Scale 09/11/24 09/11/24 History Score 7-10) polyethylene glycol 3350 17 gram 17 g PO BID 09/11/24 09/11/24 History oral powder packet (Miralax) potassium chloride 10 mEq 10 meq PO DAILY 09/11/24 09/11/24 History tablet,extended release povidone-iodine 10 % topical 1 ml topical DAILY heel pressure 09/11/24 09/11/24 History solution (Betadine) ulcer protein supplement 1 ea PO TID 09/11/24 09/11/24 History sennosides 8.6 mg-docusate sodium 2 tab PO HS 09/11/24 09/11/24 History 50 mg tablet (Senna Plus) Patient History Medical History Tachy-reema syndrome Encounter for pre-operative examination Peripheral arterial disease Osteomyelitis of foot, right, acute 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 Pulmonary hypertension Paroxysmal atrial fibrillation Bradycardia Acute on chronic heart failure with preserved ejection fraction (HFpEF) CAD (coronary artery disease) Ex-smoker COPD with emphysema NSTEMI (non-ST elevated myocardial infarction) Anticoagulant long-term use SOB (shortness of breath) Hypertension Social History Smoking Status: Former smoker Tobacco Type: Cigarettes Second Hand Exposure: No; Hx Alcohol Use: No Hx Substance Use: No Preferred Language: Sinhala Communication Ability: Unable Director Of Photography Required: No Beliefs That Will Affect Care: None marital status: Single Current Living Situation: Rehab Current Living Situation Comment: rehab at [facility] Feels Safe at Home: Yes Assistive Devices: Glasses and Walker Physical Exam Physical Exam: General: Alert. Frail-appearing. Diffuse anasarca Neuro: No focal deficits, oriented to self reports the year is 2022 unable to tell me the month nor day, was able to state she was in the ICU Skin: Cool, dry, Head: Atraumatic Ears, nose, mouth and throat: airway patent Cardiovascular: Normal peripheral perfusion, tachycardia noted on bedside monitor Respiratory: no respiratory distress, rapid desaturation when patient removes oxy mask Gastrointestinal: Non distended Musculoskeletal: Right side below the knee amputation, pitting edema bilaterally up to the groin Results & Data Results & Data Vital Signs (Past 12 Hours) Vital Signs Temp Pulse Pulse Pulse Resp BP BP 09/21/24 11:40 36.6 C 09/21/24 11:30 83/55 L 09/21/24 11:30 110 H 15 09/21/24 11:09 108 H 13 09/21/24 10:03 109 H 14 09/21/24 10:00 83/68 L 09/21/24 09:42 107 H 15 09/21/24 09:30 90/64 L 09/21/24 09:06 111 H 18 09/21/24 09:00 108 H 16 09/21/24 08:40 100/52 L 09/21/24 08:30 35.8 C L 09/21/24 08:24 96/73 L 09/21/24 08:21 108 H 21 09/21/24 08:20 09/21/24 08:15 117 H 21 09/21/24 08:11 100/77 09/21/24 08:00 113 H 18 09/21/24 07:07 124 H 26 H 09/21/24 07:06 123 H 123/92 09/21/24 07:00 112 H 09/21/24 06:49 126 H 32 H 117/74 09/21/24 04:19 107 H 114/70 09/21/24 03:12 118 H 21 101/63 09/21/24 02:33 36.5 C 57 L 18 125/76 Pulse Ox O2 Del Method O2 Flow Rate 09/21/24 11:40 09/21/24 11:30 09/21/24 11:30 100 Oxymask 6 09/21/24 11:09 100 09/21/24 10:03 100 Oxymask 10 09/21/24 10:00 09/21/24 09:42 97 09/21/24 09:30 09/21/24 09:06 97 09/21/24 09:00 96 Oxymask 10 09/21/24 08:40 09/21/24 08:30 09/21/24 08:24 09/21/24 08:21 09/21/24 08:20 Oxymask 10 09/21/24 08:15 92 09/21/24 08:11 09/21/24 08:00 09/21/24 07:07 98 Non-rebreather 15 09/21/24 07:06 98 Oxymask 8 09/21/24 07:00 09/21/24 06:49 93 Non-rebreather 15 09/21/24 04:19 09/21/24 03:12 92 Nasal Cannula 3 09/21/24 02:33 90 Nasal Cannula 1 Critical Care Results & Data Vital Signs (Past 12 Hours) Vital Signs Temp Pulse Pulse Pulse Resp BP BP 09/21/24 11:40 36.6 C 09/21/24 11:30 83/55 L 09/21/24 11:30 110 H 15 09/21/24 11:09 108 H 13 09/21/24 10:03 109 H 14 09/21/24 10:00 83/68 L 09/21/24 09:42 107 H 15 09/21/24 09:30 90/64 L 09/21/24 09:06 111 H 18 09/21/24 09:00 108 H 16 09/21/24 08:40 100/52 L 09/21/24 08:30 35.8 C L 09/21/24 08:24 96/73 L 09/21/24 08:21 108 H 21 09/21/24 08:20 09/21/24 08:15 117 H 21 09/21/24 08:11 100/77 09/21/24 08:00 113 H 18 09/21/24 07:07 124 H 26 H 09/21/24 07:06 123 H 123/92 09/21/24 07:00 112 H 09/21/24 06:49 126 H 32 H 117/74 09/21/24 04:19 107 H 114/70 09/21/24 03:12 118 H 21 101/63 09/21/24 02:33 36.5 C 57 L 18 125/76 Pulse Ox O2 Del Method O2 Flow Rate 09/21/24 11:40 09/21/24 11:30 09/21/24 11:30 100 Oxymask 6 09/21/24 11:09 100 09/21/24 10:03 100 Oxymask 10 09/21/24 10:00 09/21/24 09:42 97 09/21/24 09:30 09/21/24 09:06 97 09/21/24 09:00 96 Oxymask 10 09/21/24 08:40 09/21/24 08:30 09/21/24 08:24 09/21/24 08:21 09/21/24 08:20 Oxymask 10 09/21/24 08:15 92 09/21/24 08:11 09/21/24 08:00 09/21/24 07:07 98 Non-rebreather 15 09/21/24 07:06 98 Oxymask 8 09/21/24 07:00 09/21/24 06:49 93 Non-rebreather 15 09/21/24 04:19 09/21/24 03:12 92 Nasal Cannula 3 09/21/24 02:33 90 Nasal Cannula 1 Lab & Micro Results (Past 24 Hours) RBC 3.51 M/uL (4.20-5.40) L 09/21/24 WBC 18.67 K/ul (4.8-10.8) H 09/21/24 Hgb 9.3 g/dl (12.0-16.0) L 09/21/24 Hct 33.1 % (37.0-47.0) L 09/21/24 MCV 94.3 fL (80.0-100.0) 09/21/24 MCH 26.5 pg (25.0-34.0) 09/21/24 MCHC 28.1 g/dL (32.0-36.0) L 09/21/24 RDW Standard Deviation 69.8 fL (36.4-46.3) H 09/21/24 RDW Coefficient of Variation 20.4 % (11.5-14.5) H 09/21/24 Plt Count 296 K/uL (130-400) 09/21/24 MPV 11.5 fL (9.4-12.4) 09/21/24 Neutrophils (%) (Auto) 93.0 % 09/21/24 Lymphocytes (%) (Auto) 2.8 % 09/21/24 Monocytes # (Auto) 0.59 K/uL (0.11-0.59) 09/21/24 Eosinophils # (Auto) 0.04 K/uL (0.00-0.50) 09/21/24 Immature Granulocyte % (Auto) 0.7 % 09/21/24 Neutrophils # (Auto) 17.36 K/uL (1.40-6.50) H 09/21/24 Lymphocytes # (Auto) 0.53 K/uL (1.20-3.40) L 09/21/24 Monocytes # (Auto) 0.59 K/uL (0.11-0.59) 09/21/24 Eosinophils # (Auto) 0.04 K/uL (0.00-0.50) 09/21/24 Basophils # (Auto) 0.02 K/uL (0.00-0.20) 09/21/24 Immature Granulocyte # (Auto) 0.13 K/uL (0.01-0.20) 4 Polychromasia 1+ 09/21/24 Hypochromasia Present 09/21/24 Anisocytosis Present 09/21/24 Tear Drop Cells 1+ 09/21/24 Na 140 mmol/L (136-145) 09/21/24 K 3.7 mmol/L (3.5-5.1) 09/21/24 Cl 105 mmol/L (98-107) 09/21/24 CO2 31 mmol/L (21-32) 09/21/24 Anion Gap 4 (3-11) 09/21/24 BUN 6 mg/dl (6-23) 09/21/24 Creatinine 0.20 mg/dl (0.6-1.2) L 09/21/24 BUN/Creatinine Ratio 30.0 (10-20) H 09/21/24 Glu 82 mg/dl (70-99(Fasting)) 09/21/24 Ca 8.1 mg/dl (8.6-10.3) L 09/21/24 Calcium Level 8.1 mg/dl (8.6-10.3) L 09/21/24 05:53 Diagnostic Findings (Past 24 Hours) Chest X-Ray 09/21/24 05:20 EXAM: XR chest 1V portable CLINICAL HISTORY: WORSENING OXYGEN REQUIREMENT WTW TECHNIQUE: X-ray images of the chest were obtained in frontal projections. COMPARISON: 09/11/2024 FINDINGS: The patient is not well centralized. Pulmonary Parenchyma: Currently noted total opacification of the left hemithorax mostly along its middle and lower lung zones with obliteration of left costo-phrenic angle; likely marked pleural effusion with subsegmnetal collapse of the overlying lung. Prominent leonard. Currently noted ill-defined areas of ground glass infiltrates are seen scattered within right lung. Currently noted obliterated right costo-phrenic angle likely by minimal pleural effusion. Heart and Mediastinum: the heart is not viualized. Bony Thorax: The bony thorax appears intact without fractures or deformities. Soft Tissues: Soft tissues overlying the chest wall are unremarkable. IMPRESSION: 1. Currently noted total opacification of the left hemithorax mostly along its middle and lower lung zones with obliteration of left costo-phrenic angle; likely marked pleural effusion with subsegmnetal collapse of the overlying lung. 2. Currently noted ill-defined areas of ground glass infiltrates are seen scattered within right lung; possibly infective/inflammatory. 3. Currently noted obliterated right costo-phrenic angle likely by minimal pleural effusion. [facility] was called at [phone] at 5:35 AM MACHINE APPLICATOR CEMENTER on 09/21/2024 and Eliane(nurse) was informed regarding the presence of Significant Medical Findings in the report. Electronically signed by Lupillo Child 09-21-2024 06:[address] 09/21/24 06:43 EXAM: CT chest diagnostic wo con CLINICAL HISTORY: TECHNIQUE: Contiguous axial CT images of the chest were acquired without administration of intravenous contrast. Coronal and sagittal reconstructions were obtained. One of the following dose reduction techniques were utilized for this exam: Automated exposure control, adjustment of the mA and/or kV according to patient size, use of iterative reconstruction. COMPARISON: 09/11/2024 FINDINGS: Lungs: Significant interval worsening of left pleural effusion being marked in today's study with total collapse of the underlying lung. Significant interval worsening of right pleural effusion being moderate to severe in today's study with subsegmental collapse of the underlying lung. Still noted right upper lobe and to much less extent middle lobe atelectatic changes, interlobular septal thickening . No pulmonary nodules or masses are identified. Mediastinum: No mediastinal mass or abnormal lymphadenopathy. The heart size is within normal limits. Still noted right diaphragmatic crura lesion showing fat desnity; likely lipoma, measuring about 4.5 x2.4 cm in axial dimensions. Chest Wall: The chest wall is unremarkable with no evidence of soft tissue or bony abnormalities. Upper Abdomen: Visualized portions of the abdomen show minimal perihepatic fluid. Bones: Visualized osseous structures are normal, no evidence of fracture or lytic/sclerotic lesions. IMPRESSION: 1. Significant interval worsening of left pleural effusion being marked in today's study with total collapse of the underlying lung. Significant interval worsening of right pleural effusion being moderate to severe in today's study with subsegmental collapse of the underlying lung. Urgent action is suggested. 2. Aerated portions of the right upper and right middle lobe showing septal thickening representing pulmonary congestion. 3. Still noted right diaphragmatic crura lesion showing fat desnity; likely lipoma. Electronically signed by Lupillo Child 09-21-2024 08:20 AM I & O Totals 24 Hours 09/20/24 09/21/24 09/22/24 06:59 06:59 06:59 Intake Total 1210 / 1210 550 / 550 630 / 630 Output Total 265 / 265 276 / 276 1325 / 1325 Balance 945 / 945 274 / 274 -695 / -695 Cumulative 09/11/24 00:19 thru 09/21/24 11:42 Intake Total 85468.814 Output Total 6559 Balance 15935.814 RT Ventilator Mngmt (Last Documented) Ventilator Ordered Settings Respiratory Rate 15 09/21/24 11:30 Ventilator - PT Measurements Respiratory Rate 15 Coding Level of Care Code 90003 CRITICAL CARE 1ST 30-74M Additional Critical Care Time Additional 30min Critical Care Time: Yes - 52082 Diagnoses Septic shock A41.9; R65.21 Acute UTI N39.0 Bilateral pneumonia J18.9 Sacral wound S31.000A Cellulitis of left lower leg L03.116 Acute hypoxemic respiratory failure J96.01 Persistent atrial fibrillation I48.19 Failure to thrive in adult R62.7 Pleural effusion J90 Anasarca R60.1 Acute respiratory failure with hypoxia J96.01 Mediastinal lymphadenopathy R59.0 Atrial fibrillation I48.91 Protein-calorie malnutrition E46 Atelectasis of right lung J98.11 Anticoagulant long-term use Z79.01 Tachycardia R00.0 Pressure ulcers of skin of multiple topographic sites L89.90 Goals of care, counseling/discussion Z71.89 Additional Codes Critical Care Time - Additional 30min Critical Care Time: Yes - 64468 ([id number])
[2024-09-21] MEDS: MoRPHine SULFATE 2 MG/ML CARP ONE (12:56)
[2024-09-21] MEDS: PIPERACILLIN/TAZOBACTAM 4.5 GM/100 ML BAG IV SCH (14:08)
[2024-09-21] MEDS: methylPREDNISolone 40 MG in SYRINGE 0 ML IV SCH (16:00)
[2024-09-21 18:16] VITALS: BP 103/67; PULSE 110; RESP 21; O2SAT 91
--- NOTE | 2024-09-21 19:23 | Communication Note ---
Date of Service: September 21, 2024 Clinical Update Daughter- Clare has arrived to be with her mom at this time. We did review the information that was discussed earlier today by Attending Dr. Mendieta and Clare. She again re-iterated that Natividad (the patient) would not want invasive procedures or life support to include intubation or CPR, and that Natividad has been refusing follow on care prior to this. She also understands that we are likely prolonging the dying process at this time. She does state that she was able to get in touch with her sister Sara and they would like to proceed with comfort care. We discussed oxygen supplementation and at this time she would like to continue this as Natividad feels she is having trouble breathing already, but may want to remove later. We discussed providing medications to prevent air hunger, pain, anxiety/agitation, seizures and secretion management. She would like to have a roll over loader present for a prayer this evening and Chaplain Mead is willing to come in and pray with them. She feels that she is ready to proceed at this time with initiation of comfort care measures. - Vasoactive mediations have been discontinued - Tylenol is available for headaches/fevers/minor pain - Morphine oral as well as IV is available for air hunger/pain/respiratory distress - Ativan is available for agitation/anxiety/seizures - Zofran is available for nausea/vomiting - Robinul is available for secretion management Admitting service has also been updated that comfort measures have been initiated Hebert BALDERRAMA (ACNP-)
[2024-09-21] MEDS ORDERED: ACETAMINOPHEN 325 MG TAB PO PRN (19:30)
[2024-09-21] MEDS ORDERED: GLYCOPYRROLATE 0.2 MG/ML VIAL IV PRN (19:30)
[2024-09-21] MEDS ORDERED: ONDANSETRON INJ 2 MG/ML 2 ML VIAL IV PRN (19:30)
[2024-09-21] MEDS ORDERED: PROCHLORPERAZINE 5 MG in SYRINGE 4 ML IV PRN (19:30)
[2024-09-21] MEDS ORDERED: MoRPHine SULFATE 10 MG/0.5 ML UDP PO PRN (19:30)
[2024-09-21] MEDS ORDERED: MoRPHine SULFATE 2 MG/ML CARP IV PRN (19:36)
[2024-09-21] MEDS: MoRPHine SULFATE 2 MG/ML CARP IV PRN (19:57)
[2024-09-21] MEDS ORDERED: VANCOMYCIN HCL 1,250 MG in SODIUM CHLORIDE 0.9% 250 ML IV SCH (21:00)
[2024-09-21] MEDS: LORazepam 2 MG/1 ML VIAL IV PRN (23:50)
--- NOTE | 2024-09-22 06:59 | Hospitalist Progress Note ---
Date of Service September 22, 2024 Assessment & Plan (1) Septic shock: Plan: 69 y/o female with history of right BKA due to osteomyelitis (08/20/24), PVD, PAF on Eliquis, COPD on 2L O2 at baseline and HFpEF presenting from her facility at [facility] with one week of progressive confusion. Initially presented with septic shock requiring vasopressive support from a presumed urinary source. She was maintaining adequate BPs without vasopressive agents. Acute respiratory decompensation 09/21 prompting code purple - requiring escalation of care back to the ICU. CT Chest with interval worsening and complete white out of the left lung. Family elected to proceed with comfort measures only as Natividad would not want invasive intervention. Discontinue antibiotics, pressor support, etc. Continuing supportive oxygen for comfort in addition to zofran, ativan, morphine, compazine, glycopyrrolate, etc. Anticipate decline in the next few days. Will continue to follow. (2) Leukocytosis: Plan: Persistently elevated WBC with neutrophilic predominance and elevated CRP. Procal negative. May be residual in the setting of septic shock. Overall lower than prior, but still elevated. 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 Has been intermittently in RVR. Metoprolol was started, but patient became bradycardic. Rate/rhythm control and anticoagulation have been discontinued. (4) Delirium: Plan: Waxing and waning, mainly surface-level conversations with up to 5 word responses at best. Patient with poor nutrition and low motivation to eat. Now VICE PRESIDENT OF COMMUNICATIONS. (5) Pressure ulcers of skin of multiple topographic sites: Plan: Stage II-III ulcers on sacral region, R posterior upper thigh, L heel. WCx likely mixed skin faith. Less likely the nidus of infection, but MRI ordered for completeness. Patient did decline imaging. Further workup deferred as patient VICE PRESIDENT OF COMMUNICATIONS. Turn and position q 2 hours Wound care for comfort only (6) Hyperthyroidism: Plan: Patient previously on Methimazole which was held during last admission due to elevated TSH. TSH 5.11, could be elevated as an acute phase reactant. No further recommendations. (7) Diabetes mellitus type 2 with peripheral artery disease: Plan: Blood sugar overall well controlled w diet. Latest A1c 5.7 08/01/24. Minimal insulin needs this admission. Discontinued insulin coverage. Plan Hospitalist team will continue to follow with patient care. Code status: DNR/DNI DVT ppx: contraindicated as patient VICE PRESIDENT OF COMMUNICATIONS FENGI: regular Dispo: VICE PRESIDENT OF COMMUNICATIONS Admission and Anticipated Discharge Date Admission Date: September 11, 2024 Supervising Physician Co-Signing Physician Notes Attending Physician Supervision Note: I independently interviewed and examined the patient and verified the sharma history and physical, reviewed labs and image studies and agree with findings and care plan noted above. Now on comfort care. Daughter and family at bedside Comfortable in bed. No resp distress. NC O2 in place Tena + #Acute hypoxic resp failure - (09/21/2024) possibly from obstructive process/malignancy/pleural effusion. CT scan showing significant bilateral pleural effusion with collapse of lungs. - transferred to ICU and per discussion with family - transitioned to comfort care #HFpEF with Severe pul HTN/TR/LVH - Right heart failure #Sepsis/Septic shock -on presentation. Procal elevated on admission - normalized 09/19. UTI d/t chronic tena as source. Klebsiella and E. coli on culture. treated with broad spectrum abx. Also treated for bilateral pneumonia. -With further rise in WBC count and CRP in setting of Stage III gluteal/sacral ulcers - MRI pelvis ordered 09/20 for any abscess collection but patient declined. #Delirium/metabolic encephalopathy - #Malnutrition -multifactorial. #Afib with Tachy-reema - #Ascites - sec to right heart failure. s/p diagnostic paracentesis on admission - no infection #s/p right BKA - has had limited mobility since then. #Pressure ulcer of left posterior heel and pressure ulcer of left lateral foot, stage III POA, or pressure induced bilateral medial thigh deep tissue injury - s/p debridement in july and august. Now on comfort per discussion with family - continue to maintain comfort Subjective No meaningful history obtained. DaughterClare at bedside. Transitioned to comfort measures only overnight. Review of Systems Review of Systems: per HPI Physical Exam Physical Exam: Gen: chronically ill appearing patient in NAD, appears older than stated age HEENT: AT AL MMM Resp: no increased work of breathing, oxymask in place CV: clinically well perfused Abd: non-distended MSK: no obvious deformities Skin: no rashes or bruising Neuro: alert and oriented Psych: appropriate mood and affect Results & Data Results & Data Vital Signs (Past 12 Hours) Vital Signs O2 Del Method O2 Flow Rate 09/21/24 21:44 Oxymask 8 Resident Activity Tracking Resident Involvement: Resident Care Provided Care Provided: Adult Hospital Medicine
--- NOTE | 2024-09-22 08:41 | Communication Note ---
Date of Service: September 22, 2024 Met with family/Clare. Patient appears to be comfortable no respiratory distress. Reviewed vital signs continue expectant management/comfort measures: Downgrade out of ICU Coding Level of Care Code None
--- NOTE | 2024-09-23 07:31 | Hospitalist Progress Note ---
Date of Service September 23, 2024 Assessment & Plan (1) Septic shock: Plan: 69 y/o female with history of right BKA due to osteomyelitis (08/20/24), PVD, PAF on Eliquis, COPD on 2L O2 at baseline and HFpEF presenting from her facility at [facility] with one week of progressive confusion. Initially presented with septic shock requiring vasopressive support from a presumed urinary source. She was maintaining adequate BPs without vasopressive agents. Acute respiratory decompensation 09/21 prompting code purple - requiring escalation of care back to the ICU. CT Chest with interval worsening and complete white out of the left lung. Family elected to proceed with comfort measures only as Natividad would not want invasive intervention. Discontinue antibiotics, pressor support, etc. Continuing supportive oxygen for comfort in addition to zofran, ativan, morphine, compazine, glycopyrrolate, etc. Anticipate decline in the next few days. Will continue to follow. (2) Leukocytosis: Plan: Persistently elevated WBC with neutrophilic predominance and elevated CRP. Procal negative. May be residual in the setting of septic shock. Overall lower than prior, but still elevated. 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 Has been intermittently in RVR. Metoprolol was started, but patient became bradycardic. Rate/rhythm control and anticoagulation have been discontinued. (4) Delirium: Plan: Waxing and waning, mainly surface-level conversations with up to 5 word responses at best. Patient with poor nutrition and low motivation to eat. Now DIRECTORY COMPILER. (5) Pressure ulcers of skin of multiple topographic sites: Plan: Stage II-III ulcers on sacral region, R posterior upper thigh, L heel. WCx likely mixed skin faith. Less likely the nidus of infection, but MRI ordered for completeness. Patient did decline imaging. Further workup deferred as patient DIRECTORY COMPILER. Turn and position q 2 hours Wound care for comfort only (6) Hyperthyroidism: Plan: Patient previously on Methimazole which was held during last admission due to elevated TSH. TSH 5.11, could be elevated as an acute phase reactant. No further recommendations. (7) Diabetes mellitus type 2 with peripheral artery disease: Plan: Blood sugar overall well controlled w diet. Latest A1c 5.7 08/01/24. Minimal insulin needs this admission. Discontinued insulin coverage. Plan Hospitalist team will continue to follow with patient care. Code status: DNR/DNI DVT ppx: contraindicated as patient DIRECTORY COMPILER FENGI: regular Dispo: DIRECTORY COMPILER Admission and Anticipated Discharge Date Admission Date: September 11, 2024 Supervising Physician Co-Signing Physician Notes Attending Physician Supervision Note: I independently interviewed and examined the patient and verified the sharma history and physical, reviewed labs and image studies and agree with findings and care plan noted above. Now on comfort care. No concerns per nursing. Comfortable in bed. No resp distress. NC O2 in place Tena + #Acute hypoxic resp failure - (09/21/2024) possibly from obstructive process/malignancy/pleural effusion. CT scan showing significant bilateral pleural effusion with collapse of lungs. - transferred to ICU and per discussion with family - transitioned to comfort care #HFpEF with Severe pul HTN/TR/LVH - Right heart failure #Sepsis/Septic shock -on presentation. Procal elevated on admission - normalized 09/19. UTI d/t chronic tena as source. Klebsiella and E. coli on culture. treated with broad spectrum abx. Also treated for bilateral pneumonia. -With further rise in WBC count and CRP in setting of Stage III gluteal/sacral ulcers - MRI pelvis ordered 09/20 for any abscess collection but patient declined. #Delirium/metabolic encephalopathy - #Malnutrition -multifactorial. #Afib with Tachy-reema - #Ascites - sec to right heart failure. s/p diagnostic paracentesis on admission - no infection #s/p right BKA - has had limited mobility since then. #Pressure ulcer of left posterior heel and pressure ulcer of left lateral foot, stage III POA, or pressure induced bilateral medial thigh deep tissue injury - s/p debridement in july and august. Now on comfort per discussion with family - continue to maintain comfort Subjective Natividad was resting comfortably in bed, sleeping. Her daughter, Clare, is at bedside. Denies any concerns at this time. Review of Systems Review of Systems: As per above Physical Exam Constitutional: average body habitus; no acute distress Eyes: Eyes closed ENMT: Ears: no external ear abnormality Nose: no external nose abnormality Respiratory: Oxymask in place, mouth open while breathing. No respirator distress Cardiovascular: Rate/Rhythm: regular rhythm and + tachycardic Skin: Some edema and erythema at bilateral lower extremities. Psychiatric: Not alert or oriented. Resting comfortably Results & Data Results & Data Vital Signs (Past 12 Hours) Vital Signs O2 Del Method O2 Flow Rate 09/22/24 20:00 Oxymask 6 Resident Activity Tracking Resident Involvement: Resident Care Provided Care Provided: Adult Hospital Medicine
--- NOTE | 2024-09-24 03:39 | Death Pronouncement Note ---
Date of Service September 24, 2024 Pronouncement Note Admission Date Admission Date: September 11, 2024 Contributing Factors (1) Septic shock: (2) Leukocytosis: (3) Persistent atrial fibrillation: (4) Delirium: (5) Pressure ulcers of skin of multiple topographic sites: (6) Hyperthyroidism: (7) Diabetes mellitus type 2 with peripheral artery disease: Summary Additional details: I was called to pronounce the of Natividad Henning ( 1955) by nursing Upon entering the room, patient was found to be in a terminal state. They were unresponsive to, and did not withdrawal from, verbal or tactile stimuli. They were unresponsive to corneal, pupillary, and oculocephalic reflexes. On cardiopulmonary exam, they were found to be without detectable carotid pulses, and without spontaneous heart tones or respirations. Time of was pronounced by me on 09/24/2024 at 0331. Attending physician was notified was notified. Next of kin was notified by nursing. Additional Data Confirmation of : no pulse, no respirations, no heart sounds and pupils fixed and dilated Family: contacted (by nursing ) Attending/PCP notified?: Yes Attending physician: Arpita Neely MD Was code activated?: No
--- NOTE | 2024-09-24 18:55 | Discharge Summary ---
Date of Service September 24, 2024 Admission HPI Per Admitting Provider Natividad Henning is a 69yo female with history of PAD, PAF on Eliquis anticoagulation, CAD, COPD, HTN and HFpEF. Patient was recently hospitalized at [facility] from 07/31/24 - 08/25/24 after presenting with cellulitis, diabetic foot infection and acute on chronic HFpEF. Patient was diuresed with IV Lasix. She was evaluated by Vascular Medicine and found to have severe arterial insufficiency. She had excisional debridement performed of bilateral LE ulcers performed by Dr. Melendrez of Podiatry on 08/05/24 with collection of a right foot bone biopsy which showed osteomyelitis. She had a bilateral LE angiogram performed on 08/06/[address] Tolbert with angioplasty, intravascular lithotripsy and stenting of the right external iliac artery and angioplasty of the right mid SFA with drug-eluting balloon. Patient had a right BKA performed on 08/20/[address] Ahsan Farr. She had post-operative anemia and received 1u PRBCs on 08/21/24. Patient was ultimately discharged to [facility] no 08/25/24. Plavix to continue until 09/07/24. Her Methimazole was held with plans to repeat TSH in 2 weeks. [facility], Jennifer, who provides the history. Jennifer has not seen her mother for several weeks. When she visited her today at [facility] patient was minimally responsive. Reportedly has had one week of progressive confusion, decreased oral intake and had a fever this AM, T==121.3 by EMS. Daughter states that patient has not eaten or taken her medications for several days. She has been taking very infrequent sips of water. Staff checked her vital signs this evening and patient was hypotensive and tachycardic. No report of nausea, vomiting, diarrhea, chest pain or shortness of breath. Patient is unable to provide details of events prior to arrival due to her state of illness and metabolic encephalopathy. She does state "my leg hurts" when asked questions. No additional complaints. Upon arrival to the ER patient found to be in atrial fibrillation with RVR, rate of 126bpm. Blood pressure low at 92/73. She was given 2L NSS with no improvement in blood pressure (remained 80's/50's) therefore she was started on Levophed. Daughter reports that patient is more alert and responsive after receiving some IVF. ER Course: NSS x 2L Zosyn 4.5gm Daptomycin 325mg Levophed gtt Principal Diagnosis Acute Hypoxic respiratory failure Discharge Data Allergies Allergy/AdvReac Type Severity Reaction Status Date / Time ciprofloxacin [Cipro] Allergy Mild SHORTNESS Verified 07/31/24 20:15 OF BREATH miconazole Allergy Mild Rash Verified 07/31/24 20:15 empagliflozin Allergy Unknown Unknown Verified 07/31/24 20:15 [From Jardiance] metformin Allergy Unknown Unknown Verified 07/31/24 20:15 Consultations 09/11/24 02:48 ED Decision to Admit Stat 09/11/24 05:32 Consult Health Professional Routine 09/21/24 07:10 Consult Pulmonology Routine 09/21/24 09:02 Consult Health Professional Routine Ordered Studies 09/11/24 05:32 CT Abd and Pelvis [CT abd pelvis wo con] Urgent 09/11/24 06:04 CT head/brain wo con Urgent 09/11/24 06:06 CT chest diagnostic wo con Urgent 09/21/24 06:43 CT chest diagnostic wo con Stat Hospital Course (1) Acute respiratory failure with hypoxia: (2) Pleural effusion: (3) Tachy-reema syndrome: (4) (HFpEF) heart failure with preserved ejection fraction: (5) Acute UTI: (6) Septic shock: (7) Sacral decubitus ulcer, stage II: (8) Anasarca: (9) Diabetes mellitus type 2 with peripheral artery disease: Plan #Acute hypoxic resp failure - (09/21/2024) possibly from obstructive process/malignancy/pleural effusion. CT scan showing significant bilateral pleural effusion with collapse of sarah gs. - transferred to ICU and per discussion with family - transitioned to comfort care #HFpEF with Severe pul HTN/TR/LVH - Right heart failure #Sepsis/Septic shock -on presentation. Procal elevated on admission - normalized 09/19. UTI d/t chronic tena as source. Klebsiella and E. coli on culture. treated with broad spectrum abx. Also treated for bilateral pneumonia. -With further rise in WBC count and CRP in setting of Stage III gluteal/sacral ulcers - MRI pelvis ordered 09/20 for any abscess collection but patient declined. #Delirium/metabolic encephalopathy - #Malnutrition -multifactorial. #Afib with Tachy-reema #Ascites - sec to right heart failure. s/p diagnostic paracentesis on admission - no infection #s/p right BKA - has had limited mobility since then. #Pressure ulcer of left posterior heel and pressure ulcer of left lateral foot, stage III POA, or pressure induced bilateral medial thigh deep tissue injury - s/p debridement in july and august. After extensive discussion with family about continued decline of her chronic illness and acute worsening, care was transitioned to comfort care. on 09/24 at 3am. Pronouncement done by the night team. Total Time Total Time Spent Total Time Spent (In Minutes): . Discharge Plan Discharge Items Patient Disposition: Other Date/Time: 09/24/24 03:31
== END 2024-09-24 04:17 | disposition expired | DRG 871 ==
LOC: SUATTDRO → ED 00:32 → 1E 03:35 → SUATTDRO 03:35 → 1E 04:51 → 4W 09-13 23:21 → 1E 09-21 08:10 → 3E 09-22 09:04